=== PATIENT | female | born 1955 | race Caucasian/White ===

== ENCOUNTER 2019-05-22 09:09 | Outpatient (CLI) | payer MEDICARE, MEDICAID, SELFPAY ==
--- NOTE | 2019-05-22 10:09 | MR_ITS ---
WS: [id number] MRI LEFT KNEE HISTORY: PAIN LEFT KNEE JOINT COMPARISON: LEFT knee radiographs 09/27/2016 Anterior cruciate ligament: Increased signal and marked thinning of the ACL. The anterior fibers are still intact. There is a large amount of increased signal in the posterior fibers. Posterior cruciate ligament: Intact. Medial collateral ligament: Negative. Posterior lateral corner structures: Intact. Medial menisci: Posterior horn is small caliber with increased signal. Blunting of the free edge and significant fraying along the articular surfaces and towards the meniscal root. Anterior horn is part ially subluxed. Lateral meniscus: Intact. Normal signal, size and shape. Extensor mechanism: Distal quadriceps tendon and patellar tendons are intact. Fluid and soft tissue: No joint effusion. No Sargent's cyst. Osseous and articular structures: Patellofemoral compartment: Mild narrowing of the lateral patellofemoral compartment with fraying of the cartilage. No marrow edema. Medial compartment: Moderate narrowing medial compartment with near complete loss of cartilage. Small osteophytes extend from the medial femoral condyle and tibial plateau with partial subluxation of th e meniscus. Subchondral cystic changes and edema at the femoral condyle and tibial plateau. Lateral compartment: Mild narrowing of the lateral compartment with small osteophytes. Loss of cartil age without significant marrow edema. MR/MR knee LT wo con* [id number] IMPRESSION: 1. Abnormal ACL. Suspect partially torn ACL involving the posterior fibers. 2. Moderate medial compartment osteoarthritis with loss of cartilage, osteophy tae and subluxed meniscus. 3. Complex tear posterior horn medial meniscus. 4. Mild patellofemoral and lateral compartment osteoarthritis.
== END 2019-05-22 09:10 | disposition home or self-care (01) ==
LOC: RADWPI 09:16
PROVIDERS: PCP Nurse Practitioner Family; Visit Provider Nurse Practitioner Family
DX: M17.12 Unilateral primary osteoarthritis, left knee (principal); S83.232A Complex tear of medial meniscus, current injury, left knee, initial encounter; X58.XXXA Exposure to other specified factors, initial encounter
CPT/HCPCS: 73721

== ENCOUNTER → 2019-05-23 13:50 | Outpatient (BNVA) | payer MEDICARE, MEDICAID, SELFPAY | PROVIDERS: PCP Nurse Practitioner Family; Visit Provider Nurse Practitioner | DX: F41.0 Panic disorder [episodic paroxysmal anxiety] (principal) | CPT/HCPCS: 99213 ==

== ENCOUNTER → 2019-05-28 15:34 | Outpatient (BNVA) | payer MEDICARE, MEDICAID, SELFPAY | PROVIDERS: PCP Nurse Practitioner Family; Referring Provider Orthopaedic Surgery; Visit Provider Orthopaedic Surgery | DX: M17.12 Unilateral primary osteoarthritis, left knee (principal); M25.562 Pain in left knee | CPT/HCPCS: 73560; 73565 ==

== ENCOUNTER → 2019-08-15 08:34 | Outpatient (BNVA) | payer MEDICARE, MEDICAID, SELFPAY | PROVIDERS: PCP Nurse Practitioner Family; Visit Provider Nurse Practitioner | DX: F41.0 Panic disorder [episodic paroxysmal anxiety] (principal) | CPT/HCPCS: 99213 ==

== ENCOUNTER → 2019-11-28 07:39 | Outpatient (BNVA) | payer MEDICARE, MEDICAID, SELFPAY | PROVIDERS: PCP Nurse Practitioner Family; Visit Provider Nurse Practitioner | DX: F41.0 Panic disorder [episodic paroxysmal anxiety] (principal) | CPT/HCPCS: 99213 ==

== ENCOUNTER 2020-01-30 10:28 | Outpatient (CLI) | payer MEDICARE, MEDICAID, SELFPAY ==
--- NOTE | 2020-01-30 10:35 | XRR_ITS ---
PROCEDURE INFORMATION: Exam: XR Chest, 2 Views Exam date and time: 01/30/2020 10:50 AM Age: 64 years old Clinical indication: Cough and shortness of breath; Smoker's cough; Additional info: Tobacco dependence, coughing TECHNIQUE: Imaging protocol: XR of the chest Views: 2 views. COMPARISON: CR Chest 1 [place] [id number] 06/02/2016 7:16 AM FINDINGS: Lungs: There is a large lobulated mass in the right hilum and suprahilar region that extends into the right upper lobe. It it lies along the right side of the mediastinum and obscures the margins. It may be invading the superior mediastinum. There is narrowing of the distal trachea at the level of the arch that is probably due to mediastinal of invasion. This is consistent with a primary lung malignancy. The left lung is grossly clear. Pleural space: The right costophrenic angle is blunted due to a small effusion. Heart: The heart is not enlarged.. Bones/joints: Unremarkable. XR/XR chest 2V* [id number] IMPRESSION: 1. There is a 10 cm right hilar and suprahilar mass extending into the right upper lobe consistent with a primary lung malignancy. 2. This probably invades the mediastinum. There is narrowing of the distal trachea. 3. Small right pleural effusion.
== END 2020-01-30 10:29 | disposition home or self-care (01) ==
LOC: RAD 10:32
PROVIDERS: PCP Nurse Practitioner Family; Visit Provider Nurse Practitioner Family
DX: F17.200 Nicotine dependence, unspecified, uncomplicated (principal); R05 Cough; R91.8 Other nonspecific abnormal finding of lung field; J90 Pleural effusion, not elsewhere classified
CPT/HCPCS: 71046

== ENCOUNTER 2020-02-04 13:59 | Outpatient (CLI) | payer MEDICARE, MEDICAID, SELFPAY ==
--- NOTE | 2020-02-04 14:05 | CT_ITS ---
WS: [id number] CT CHEST TECHNIQUE: Contrast enhanced CT of the chest with coronal and sagittal reformatted images. CLINICAL INFORMATION: HILAR LUNG MASS COMPARISON: None. DLP: 596.[address] scans at [facility] use at least one of these dose optimization techniques: automat ed exposure control; mA and/or kV adjustment per patient size (includes targeted exams where dose is matched to clinical indication); or iterative reconstruction. FINDINGS: Large right hilar and suprahilar mass measuring 11.9 x 6.1 x 7.1 cm. Heterogeneously enhancing mass s lightly narrows the distal main pulmonary artery. Narrowing of the adjacent segmental and subsegmenta l right upper lobe pulmonary branches. Associated encasement of the right mainstem bronchus with narr owing. Associated invasion into the mediastinum and adjacent mediastinal fat. Mild narrowing of the d istal trachea. Right hilar mass extends anteriorly and abuts the anterior mediastinum. Additional andres pected disease in the anterior right upper lobe extending along the fissure anteriorly. Interstitial infiltrates throughout the right lung suspicious for lymphangitic metastasis. This is worse in the in ferior segment right upper lobe extending along the fissure. Narrowing with encasement of the right superior vena cava which appears partially thrombosed. Tumor t hrombus in the mid segment of the SVC. This results in subtotal occlusion. Tumor thrombus measures ap proximately 4.1 cm in craniocaudal dimension.Left axillary lymphadenopathy measuring up to 12 mm Conglomerate right hilar lymphadenopathy. No left hilar lymphadenopathy. 2 noncalcified nodules one i n the left upper lobe along the left lower lobe measuring 3 mm. . Diffuse fatty infiltration liver. Cholecystectomy clips. Normal GE junction. Adrenal glands are teofilo l. Partially visualized calcified left renal cyst. Mild thoracic kyphosis. CT/CT chest w con* [id number] IMPRESSION: 1. Large right hilar and suprahilar mass consistent with neoplasm measuring 11 .9 x 6.1 x 7.1 cm 2. Interstitial infiltrates right upper lobe suspicious for lymphangitic metas tasis. 3. Narrowing with encasement of the right superior vena cava with extensive tu mor thrombus in the mid SVC. 4. 2 noncalcified nodules in the left lung described above measuring 3 mm 5. Enlarged enhancing left axillary lymph nodes suspicious for metastatic dise ase.
[2020-02-04] MEDS: iohexol 300 mg/mL 100 mL Btl IV (14:20)
== END 2020-02-04 14:00 | disposition home or self-care (01) ==
LOC: RADWPI 14:04
PROVIDERS: PCP Nurse Practitioner Family; Visit Provider Nurse Practitioner Family
DX: R91.8 Other nonspecific abnormal finding of lung field (principal); R59.0 Localized enlarged lymph nodes
CPT/HCPCS: 71260; Q9967

== ENCOUNTER 2020-02-05 10:00 | Outpatient (CLI) | payer MEDICARE, MEDICAID, SELFPAY | END 2020-02-05 10:01 | disposition home or self-care (01) | LOC: LAB 12-04 11:39 | PROVIDERS: PCP Internal Medicine; Visit Provider Internal Medicine Critical Care Medicine | DX: R91.8 Other nonspecific abnormal finding of lung field; Z20.828 Contact with and (suspected) exposure to other viral communicable diseases | CPT/HCPCS: 87635 ==

== ENCOUNTER 2020-02-08 09:23 | Day surgery (SDC) | payer MEDICARE, MEDICAID, SELFPAY ==
[2020-02-07 11:18] VITALS: BMI 22.3
[2020-02-08] VITALS (7 sets, daily range): BP systolic 92–120; BP diastolic 58–81; PULSE 99–105; RESP 16–23; TEMP 36.6–37.1; O2SAT 93–100
[2020-02-08] MEDS: sodium chloride 0.9% 1,000 ML 30 ML IV (09:47)
--- NOTE | 2020-02-08 10:32 | W.PM.OPSUD ---
Surgery/Procedure H&P Update DATE OF PROCEDURE: February 08, 2020 DATE H&P PERFORMED: 02/05/20 H&P UPDATE INFORMATION: I have reviewed H&P completed within last 30 days, I have examined patient prior to procedure and No changes to prior documentation PREOP DIAGNOSIS: Lung cancer PRIMARY INDICATION FOR PROCEDURE: Suspected lung cancer PLANNED PROCEDURE: Bronchoscopy with inspection of the airway, possible endobronchial biopsy, bronchoalveolar lavage, Cytobrush, endobronchial survey transbronchial aspiration of lymph nodes, control of bleeding Operation Date: 02/08/20 11:00 Proposed Procedures p Ebus 67193 R91.8(Not Applicable) - Kerri Meadows MD s Bronchoscopy 92509 R91.8(Not Applicable) - Kerri Meadows MD
--- NOTE | 2020-02-08 10:35 | ANES.PREANE2 ---
Pre-Anesthetic Assessment Pre-Anesthetic Assessment: Height/Weight: Height 1.65 m Weight 60.781 kg Temp Pulse Resp BP Pulse Ox 98 F 99 16 110/81 97 02/08/20 09:38 02/08/20 09:38 02/08/20 09:38 02/08/20 09:38 02/08/20 09:38 Preop Diagnosis: Lung cancer Proposed Procedure: Operation Date: 02/08/20 11:00 Proposed Procedures p Ebus 84001 R91.8(Not Applicable) - Kerri Meadows MD s Bronchoscopy 88561 R91.8(Not Applicable) - Kerri Meadows MD Familial anesthetic complications: None Was Beta Jaki taken within 24 hours: N/A Last intake: Intake Last Liquid Date 02/08/20 Last Liquid Time 06:30 Last Solid Date 02/07/20 Last Solid Time 21:00 Social: Social History: Tobacco and No alcohol Exam: Pre-Anes Outpt Exam: alert, oriented x 3, clear to auscultation bilaterally and regular rate & rhythm Airway: Cervical ROM: WNL MP: 3 Dentition: False Pulmonary: Pulmonary: SOB Comments: lung mass CV/HEM: CV/HEM: HTN Anesthetic Plan: ASA status: 3 Anesthesia: General Risk of > 500 ml blood loss (7ml/kg in children): No Meds/Allergies Current Medications: Current Medications Generic Name Dose Route Start Last Admin Trade Name Freq PRN Reason Stop Dose Admin Sodium Chloride 1,000 mls @ 30 ml s/hr 02/08/20 08:00 02/08/20 09:47 Sodium Chloride 0.9% IV 02/09/20 07:59 30 mls/hr .Q24H ANA MARÍA Administration PFSH Anesthesia PFSH: Medical History Panic disorder [episodic paroxysmal anxiety] Social History Smoking and tobacco status: current every day smoker cigarettes Packs smoked per day: 1 Years cigarettes smoked: 44 Quit status (tobacco): considering quitting Smoking risk assessment/counseling performed?: Yes Tobacco counseling given: counseling >3 minutes Alcohol intake: current Alcohol intake frequency: few times a month Alcohol type: beer Lives independently: Yes Household members: none Marital status: Current occupational status: retired History of recent travel: No Current gender identity: Female Data Anesthesia Cardiac Studies: No Data to Display
[2020-02-08] MEDS: lidocaine 1% INJ 50 mL 20 ML XX (10:45)
[2020-02-08] MEDS: EPINEPHrine 1 mg/mL INJ XX (11:10)
--- NOTE | 2020-02-08 11:36 | PM.OP ---
Operative Report Date of procedure: February 08, 2020 Pre-op Diagnosis: Lung cancer Post-op diagnosis: same Brief History: 64-year-old lady with suspected lung cancer coming in for bronchoscopic evaluation. Procedure: Name of the procedure: Bronchoscopy with inspection of the airway, endobronchial biopsies, endobronchial sound guided transbronchial needle aspiration of lymph nodes and control of bleeding Indication: Lucero lung cancer Anesthesia: General anesthesia. Local anesthesia: The talisha in the right and left mainstem bronchi were anesthetized with 1% lidocaine, 3 mL. Description of the procedure: The procedure was explained to the patient and the consent was obtained. The patient was brought to the OR. The plan was made to proceed with a bronchoscopy with monitored anesthesia care however the patient became hypoxic and was eventually intubated. Following induction of general anesthesia, the bronchoscope was advanced through the ET tube. The lower trachea appeared to be erythematous, there was extrinsic compression on the right lower trachea with narrowing. The talisha was sharp but there was narrowing from complete occlusion of the right upper lobe bronchus. The talisha, the right and left mainstem bronchi are anesthetized with 1% lidocaine. In a systematic manner bilateral bronchial tree was then examined. The bronchoscope was advanced into the left mainstem bronchus. There was erythema and mild,mucus. The left upper lobe, lingula and left lower lobe bronchi were examined up to the third subsegmental level and no abnormalities were identified. There is no endobronchial lesion, active bleeding or mucous plug. The bronchoscope was then introduced into the right mainstem bronchus. There was complete occlusion of the right upper lobe bronchus with fungating mass visible. The right middle and lower lobe bronchus also appeared distorted from extrinsic compression. There is no endobronchial lesion in the right middle or lower lobe bronchus. Endobronchial biopsies were obtained from the right upper lobe fungating mass. Multiple samples were obtained after local epinephrine and cold saline instillation. Endobronchial ultrasound was then introduced. Large mass with necrotic center was identified in the perihilar and suprahilar area. Fine-needle aspiration was performed from the 4R station lymph node area. Samples: 1. Endobronchial biopsies are sent for histopathology 2. The fine-needle aspiration was sent for histopathology and cytology. Complications: There was no immediate complications. There was no active bleeding.
--- NOTE | 2020-02-08 11:57 | PC.NURSE ---
EBUS BALLOON INTACT UPON REMOVAL.
--- NOTE | 2020-02-08 12:08 | SUR.PHASEI ---
1205 PT AWAKE ALERT TALKATIVE REQUESTS COFFEE TO SIP ON , PT HAS OCC NON PRODUCTIVE COUGH, VSS PT PT SATS 90% ON RA TRIAL, PLACED ON 2LNC SATS UP TO 94% PT TAKING ICE CHIPS WITHOUT DIFFICULTY.
--- NOTE | 2020-02-08 12:59 | ANE.PACU2 ---
Inpatient post-anesthesia follow up: Airway intact: Yes Vital signs: Temperature 98 F Pulse Rate 102 Respiratory Rate 18 Blood Pressure 98/65 Pulse Oximetry 97 Oxygen Delivery Me thod Room Air Oxygen Flow Rate 2 Fraction of Inspir ed Oxygen 2.0 Hydration adequate: Yes Nausea and vomiting: No Pain level: 1 Mental status: Baseline
== END 2020-02-08 13:10 | disposition home or self-care (01) ==
PROVIDERS: PCP Nurse Practitioner Family; Visit Provider Internal Medicine Critical Care Medicine
PROC: BB4BZZZ Ultrasonography of Pleura (ICD-10-PCS; principal; 2020-02-08 11:00)
PROC: 0BJ08ZZ Inspection of Tracheobronchial Tree, Via Natural or Artificial Opening Endoscopic (ICD-10-PCS; CPT 31622; 2020-02-08 11:00)
DX: C34.90 Malignant neoplasm of unspecified part of unspecified bronchus or lung (principal); I10 Essential (primary) hypertension; F17.210 Nicotine dependence, cigarettes, uncomplicated
CPT/HCPCS: 12345; 31627; 31628; 80500; 88305; 88307; 88309; J0171; J0330; J2250; J2370; J2704; J3010; J3490; J7030

== ENCOUNTER → 2020-02-18 07:51 | Outpatient (BNVA) | payer MEDICARE, MEDICAID, SELFPAY | PROVIDERS: PCP Nurse Practitioner Family; Visit Provider Nurse Practitioner | DX: F41.0 Panic disorder [episodic paroxysmal anxiety] (principal) | CPT/HCPCS: 99214 ==

== ENCOUNTER 2020-02-20 08:49 | Outpatient (CLI) | payer MEDICARE, MEDICAID, SELFPAY ==
[2020-02-20] MEDS: pneumococcal (23 valent) SDV 0.5 mL IM (11:22)
[2020-02-20 12:00] LABS: Basophils # 0.1 10^3/uL (0.0-0.1); Basophils % 0.6 %; Eosinophils # 0.2 10^3/uL (0.0-0.8); Eosinophils % 1.7 %; Hematocrit 32.1 % (37.0-47.0); Hemoglobin 10.1 g/dL (11.5-15.3); Lymphocytes # 1.4 10^3/uL (0.8-4.8); Lymphocytes % 11.4 %; Mean Corpuscular HGB Conc 31.5 g/dL (30.0-36.0); Mean Corpuscular Hemoglobin 25.4 pg (28.0-34.0); Mean Corpuscular Volume 80.7 fL (81-99); Mean Platelet Volume 8.2 fL (7.4-10.4); Monocytes # 1.2 10^3/uL (0.2-0.9); Monocytes % 10.4 %; Neutrophils # 8.96 10^3/uL (1.8-7.7); Neutrophils % 75.3 %; Nucleated Red Blood Cells % 0 %; Platelet Count 581 10^3/cmm (130-400); Red Blood Count 3.98 10^6/uL (4.1-5.3); Red Cell Distribution Width 14.6 % (12.1-15.1); White Blood Count 11.9 10^3/uL (4.0-10.0)
--- NOTE | 2020-02-20 12:00 | ONC CON_ITS ---
Dr. Almeida New Patient Note Patient: Iram Denis Unit #: [id number]: [id number] Dicatated By: Jeff Almeida M.D.Date of Visit: Feb 20, 2020 Onc MED New Patient/Consult Referring Physician: Dr. LEANNA MARSH M.D. Chief Complaint: Lung cancer. History of Present Illness: This is a 65-year-old woman with newly diagnosed adenocarcinoma involving the upper lobe of the right lung, by clinical evaluation stage IIIB (T4, N2, M0). She has had gradually worsening shortness of breath over at least the past year. More recently, she also had worsening cough, generally productive of yellow sputum, though about a month ago she did have some hemoptysis. Her chest x-ray on 01/30/2020 showed a 10 cm right hilar/suprahilar mass extending into the right upper lobe consistent with a primary lung malignancy. This was noted to probably invade the mediastinum. Chest CT on 02/04/2020 showed large right hilar and suprahilar mass measuring 11.9 x 6.1 x 7.1 cm. There was slight narrowing of the distal main pulmonary artery and there was narrowing of the adjacent segmental and subsegmental right upper lobe pulmonary branches. There was encasement of the right mainstem bronchus with associated narrowing. There was invasion into the mediastinum and adjacent mediastinal fat, and there was mild narrowing of the distal trachea. There was narrowing with encasement of the right superior vena cava which appeared partially thrombosed. There was evidence of tumor thrombus in the mid segment of the SVC measuring approximately 4.1 cm. There was conglomerate right hilar lymphadenopathy. Interstitial infiltrates throughout the right lung appeared suspicious for lymphangitic metastases. On 02/08/2020 she underwent bronchoscopy/EBUS with endobronchial biopsy from the right upper lobe and with FNA biopsy of station 4R lymph node. Pathology on the station 4R lymph node biopsy was consistent with metastatic adenocarcinoma, favoring lung primary. The tumor cells were TTF-1 positive. She is seen now for further management. Her energy is very low and she has very limited activity. ECOG score is 2. Her appetite is poor. Her weight is down about 10 pounds. She has not had fever. She recently has had some night sweating. She is short of breath with activity. She has cough productive of yellow sputum. She has not recently had hemoptysis. She does not complain of chest pain. She his having nausea with vomiting on a daily basis. She has some constipation. She reports having frequent urination. She has pain in her knees, but no other joint or bone pain. She does not complain of headache. She has occasional orthostatic lightheadedness. She has no focal neurologic symptoms. PET/CT on 02/09/2020 showed FDG avid right upper lobe mass measuring 12.1 x 5.6 cm. There was mild activity and a 1.5 cm subcarinal lymph node, consistent with metastatic disease. Postobstructive atelectasis with right upper and middle lobe interstitial thickening was suspicious for carcinomatosis. Past Medical History: Her medical history includes anxiety/depression, hypertension, and migraine headaches. Past Surgical History: She underwent bronchoscopy with EBUS, right upper lobe endobronchial biopsy, and FNA biopsy of station 4R lymph node on 02/08/2020. Her other surgical/procedural includes cholecystectomy, and cone biopsy for cervical cancer. Medications: KlonoPIN 1 Tablet (of 0.5 mg) Oral daily, Lisinopril-hydroCHLOROthiazide 1 Tablet (of 20-12.5 mg) Oral daily, Zoloft 1 Tablet (of 50 mg) Oral daily Allergies: No Known Allergies. Social History: Ms. Denis is . She has a history of smoking 1 pack of cigarettes daily for 40 years. She has now cut down to 1/2 pack/day. She has occasional alcohol use. Family History: Ms. Denis's father is : heart disease, and hypertension, and myocardial infarction, and stroke. Father of stroke. Mother is also , cause unknown to the patient. A brother and a sister of lung cancer. Another sister had kidney failure. Review Of Symptoms: Constitutional - She has no energy and her activity is very limited. Appetite is poor. Her weight is down about 10 lbs. No fever. She is having night sweats. ECOG score is 2, Eyes - No change in vision, ENMT - No sinus congestion/drainage. No mouth sores. She has some soreness on the right side of the throat. No difficulty swallowing, Hematologic/Lymphatic - She bruises and bleeds easily, Respiratory - She has shortness of breath. She has cough productive of yellow sputum. She had a little hemoptysis about a month ago, that resolved, Cardiovascular - No angina pain. No palpitations, Gastrointestinal - She has had nausea with vomiting on a daily basis. No heartburn or acid reflux. She has constipation. No blood in the stool or black stools, Genitourinary (F) - No dysuria or hematuria. She has urinary frequency. No urgency or incontinence, Musculoskeletal - She has pain in her knees, but no other joint or bone pain, Integumentary - No skin rash, Neurologic - No headache. She has occasional orthostatic lightheadedness. No numbness or tingling. No other focal neurologic symptoms, Psychiatric - She has anxiety and depression. She does not sleep well. Vital Signs: Performed on Feb 20, 2020 10:30: 0, 21.47, 1.68 sq.m, 66.00 in, 96 %, 103 /min (HIGH), 18 /min, 122/74 mm(hg), 98.3 F (LOW), and 133.0 lbs (HIGH). Physical Examination: Constitutional - She appears generally weak, Eyes - Sclerae nonicteric. Conjunctivae clear, ENMT - No lesions noted in the oral cavity, Neck - There is generalized firm swelling in the neck. There is no mass or thyromegaly noted, Hematologic/Lymphatic - No cervical, clavicular, or axillary adenopathy, Respiratory - Lungs are clear with diminished air movement bilaterally, Cardiovascular - Heart rhythm is regular. There is a mild tachycardia. There is no murmur, gallop, or rub noted, Abdomen - Soft and non-tender. Liver and spleen are not enlarged. There is no abdominal mass or ascites noted and there is no inguinal adenopathy, Back/Spine - No spine or CVA tenderness noted, Extremities - No edema. Pedal pulses are palpable bilaterally, Integumentary - No rashes. No suspicious skin lesions noted, Neurologic - No focal neurologic deficits noted. Impression: 1. Patient with adenocarcinoma involving the upper lobe of the right lung, by clinical evaluation stage at least IIIB (T4, N2, M0). 2. She underwent bronchoscopy/EBUS with right upper lobe endobronchial biopsy and with FNA biopsy of station 4R lymph node on 02/08/2020. Her other medical illnesses include: 3. Hypertension. 4. COPD. 5. She has history of migraine headaches. 6. She has remote history of cervical cancer, treated with cone biopsy. 7. Anxiety/depression. 8. Nicotine dependence. Plan: The CT PET/CT findings were reviewed with the patient and her daughters, and I reviewed the CT images with them. Pathology results were also reviewed, and we discussed the clinic complications. She has non-small cell carcinoma involving the upper lobe of the right lung. Her disease is locally advanced. There is associated tumor thrombus in the SVC, and she she has beginning to show clinical evidence of SVC obstruction. She has recommended to undergo radiation currently with weekly carboplatin/paclitaxel chemotherapy. I did review anticipated side effects. She will need baseline laboratory studies and she will need a brain MRI to complete staging. She will be scheduled for radiation oncology consultation this week, and her treatment will be started soon as radiation planning is completed. In the meantime, she will be started on nicotine patches for smoking cessation she also will be given instructions for a bowel regimen. Signed By: Jeff Almeida M.D. <<Signature on File>>
[2020-02-20 14:30] LABS: Alanine Aminotransferase 30 U/L (0-33); Albumin Level 3.8 g/dL (3.5-5.2); Alkaline Phosphatase 221 IU/L (35-105); Anion Gap 14.8 (5-19); Aspartate Amino Transferase 26 U/L (0-32); Blood Urea Nitrogen 15 mg/dL (8-23); Calcium 9.9 mg/dL (8.5-10.5); Carbon Dioxide 26 mmol/L (22-29); Chloride 84 mmol/L (98-107); Glomerular Filtration Rate 83.7 mL/min (90-130); Glucose 104 mg/dL (65-115); Osmolality Calculated 251 mOsm/kg (285-295); Potassium 4.8 mmol/L (3.5-5.1); Sodium 120 mmol/L (136-145); Total Bilirubin 0.3 mg/dL (0.15-1.2); Total Protein 7.8 g/dL (6.6-8.7)
== END 2020-02-20 08:50 | disposition home or self-care (01) ==
LOC: ONCMED 08:54
PROVIDERS: PCP Internal Medicine; Referring Provider Internal Medicine Critical Care Medicine; Visit Provider Internal Medicine Medical Oncology
DX: C34.11 Malignant neoplasm of upper lobe, right bronchus or lung (principal); C77.1 Secondary and unspecified malignant neoplasm of intrathoracic lymph nodes; Z23 Encounter for immunization; F17.210 Nicotine dependence, cigarettes, uncomplicated; I10 Essential (primary) hypertension; J44.9 Chronic obstructive pulmonary disease, unspecified; F41.8 Other specified anxiety disorders; Z86.69 Personal history of other diseases of the nervous system and sense organs; Z85.41 Personal history of malignant neoplasm of cervix uteri
CPT/HCPCS: 36415; 80053; 85025; 90471; 90686; 90732; 99205

== ENCOUNTER 2020-02-27 07:57 | Outpatient (CLI) | payer MEDICARE, MEDICAID, SELFPAY ==
--- NOTE | 2020-02-27 08:14 | MR_ITS ---
WS: [id number] MRI HEAD WITH CONTRAST TECHNIQUE: Sagittal T1, T2 axial, T2 axial FLAIR, axial susceptibility weighted imaging, axial diffus ion weighted images, and coronal T2 images were obtained. Pre and post-T1 axial and post T1 coronal i mages. ADC and FSPGR images. Some images degraded by patient motion. CLINICAL INFORMATION: LUNG CANCER COMPARISON: None. FINDINGS: No evidence of restricted diffusion to suggest acute ischemia. Ventricular system and basal cisterns are patent. Moderate small vessel changes. Moderate parenchymal volume loss. Small vessel changes in the manny. No hydrocephalus. Normal posterior fossa. Normal vascular flow voids at the skull base. No extra-axial fluid collection s. Mild mucosal thickening in the paranasal sinuses. Mastoid air cells are well aerated. No hemosider in on the susceptibility weighted images. Normal optic chiasm and pituitary infundibulum. Moderate sy mmetric atrophy involving the temporal lobes and hippocampal formations. No enhancing intraparenchymal metastatic lesions. Post gadolinium images degraded by motion.Enhancing 10 mm bony lesion involving the right frontal vertex is nonspecific but likely benign. This likely r epresents atypical hemangioma or venous goode. This can be followed up with head CT. MR/MR head wo/w con [id number] IMPRESSION: 1. No restricted diffusion to suggest acute ischemia. 2. Moderate small vessel changes with moderate parenchymal volume loss. 3. No evidence of enhancing intracranial metastatic disease. Some images degra ded by patient motion. 4. Enhancing bony lesion involving the right frontal vertex likely represents atypical hemangioma or venous goode.
== END 2020-02-27 07:58 | disposition home or self-care (01) ==
LOC: RADSHAW 08:02
PROVIDERS: PCP Internal Medicine; Visit Provider Internal Medicine Medical Oncology
DX: C34.11 Malignant neoplasm of upper lobe, right bronchus or lung (principal)
CPT/HCPCS: 70553; A9579

== ENCOUNTER → 2020-02-29 09:19 | Outpatient (BNVA) | payer MEDICARE, MEDICAID, SELFPAY | PROVIDERS: PCP Internal Medicine; Visit Provider Surgery | DX: Z11.59 Encounter for screening for other viral diseases (principal); C34.90 Malignant neoplasm of unspecified part of unspecified bronchus or lung | CPT/HCPCS: 87635 ==

== ENCOUNTER 2020-03-04 05:50 | Outpatient (RCR) | payer MEDICARE, MEDICAID, SELFPAY ==
--- NOTE | 2020-02-25 14:10 | N.ONRAD NP_ITS ---
Radiation Oncology Consult Patient: Iram Denis MR#: [id number] : 1955> Attending Physician: Dr. Alf Yanes Date of Service: 02/25/2020 Iram Denis was seen in consultation this afternoon for evaluation regarding possible thoracic radiotherapy for the management of her non-small cell lung cancer. She presented to her family practitioner with complaints of a cough and shortness of breath. A chest radiograph performed on January 30, 2020 identified a large mass in the right hilum extending into the right upper lobe. A follow-up thoracic CT scan completed on 2019 revealed an 11.9 cm x 6.1 cm x 7.1 cm right hilar mass encasing the right main stem bronchus and invading the mediastinum narrowing of the right superior vena cava. A 4.1 cm tumor thrombus was present. A bronchoscopy with EBUS performed on February 08, 2020 demonstrated complete occlusion of the right upper lobe bronchus with a fungating visible mass. Biopsies diagnosed a TTF???1 and Napsin positive tumor consistent with an adenocarcinoma. A PET CT ordered on February 09, 2020 confirmed the right hilar mass with a maximum SUV of 17.2, and mildly hypermetabolic 1.5 cm sub-carinal lymph node consistent with metastatic disease. I have been asked to evaluate the patient for possible thoracic radiotherapy. The patient's past medical history is significant anxiety, cervical cancer, depression, hypertension, and migraine headaches. Her previous surgical interventions include bronchoscopy, cholecystectomy, and conization of the cervix. I have reviewed the patient's medication profile which is available in the electronic medical record. She denied drug allergies. The patient's family history was remarkable for lung cancer (brother and sister). The patient was accompanied to this consultation by daughter. She reported a tobacco habit of 1 pack per day for 45 years and occasional alcohol intake (beer weekly). On review of systems, she did not report any constitutional complaints including fevers of unknown origin or unintentional weight loss. He described sided dull pain but no other head neck complaints including diplopia, tinnitus, epistaxis, or dysphagia. She denied any cardiopulmonary symptoms such as angina or palpitations, but she did report a persistent, productive cough and dyspnea. On gastrointestinal review, she disavowed dyspepsia but attested to nausea with vomiting and chronic constipation. There were no genitourinary complaints such as dysuria or hematuria. She did not report any musculoskeletal complaints including bone pain or muscle weakness. There were no neurological symptoms such as headaches, paresthesias, or seizures. On physical examination, the patient has an ECOG performance status of 2. She was 5 ft 6 in tall and weighed 134 lbs. The temperature was 99.3???F. The blood pressure was 108/67 mmHg. The pulse was 109 bpm and the respiratory rate of was 20. Oxygen saturation was 96% with ambient air. The head was normocephalic and atraumatic. Ophthalmoscopy identified bilateral red reflexes with poor visualization of the fundi. Otoscopy cerumen within the AD. The oral cavity had moist mucous membranes and no oropharyngeal exudate was present. Maxillary dentures noted. There was no cervical adenopathy or thyromegaly. Mildly enlarged right cervical veins without plethora. Normal fremitus was noted with resonance to percussion elicited. Bronchial breath sounds were auscultated in the posterior lung griffiths with significant decrement noted within the right lung griffiths. Cardiac sounds were tachycardic but regular in rate and rhythm. No auscultated gallops or murmurs present. No JVD noted. The abdomen had active bowel sounds. Right upper quadrant tenderness to palpation. No evidence of organomegaly. No muscle weakness upon testing. No tenderness to deep palpation along the axial skeleton. Cranial nerves II through XII were intact. No sensory deficits. Normal reflexes noted. Gait was normal. In summary, the patient presented to her family practitioner with complaints of a cough. A chest radiograph performed on January 30, 2020 identified a large mass in the right hilum extending into the right upper lobe. A follow-up thoracic CT scan completed on 2019 revealed an 11.9 cm x 6.1 cm x 7.1 cm right hilar mass encasing the right main stem bronchus and invading the mediastinum narrowing of the right superior vena cava. A 4.1 cm tumor thrombus was present. A bronchoscopy with EBUS performed on February 08, 2020 demonstrated complete occlusion of the right upper lobe bronchus with a fungating visible mass. Biopsies diagnosed a TTF???1 and Napsin positive tumor consistent with an adenocarcinoma. A PET CT ordered on February 09, 2020 confirmed the right hilar mass with a maximum SUV of 17.2, and mildly hypermetabolic 1.5 cm sub-carinal lymph node consistent with metastatic disease. I have been asked to evaluate the patient for possible thoracic radiotherapy. I discussed with the patient her AJCC stage IIIB (T4N2) adenocarcinoma of the lung and the National Comprehensive Cancer Network guidelines for concurrent chemoradiotherapy. I reviewed the classic study RTOG 9410 comparing sequential versus concurrent chemoradiotherapy I anticipate a 6 week course of radiotherapy that will be initiated following CT radiotherapy planning. An MR of the brain is pending. Thoracic radiotherapy toxicities were reviewed. The patient has verbalized understanding would like proceed as recommended. Dr. Alf Yanes 02/25/2020 2:09:20 PM
--- NOTE | 2020-02-27 13:14 | N.ONRAD NP_ITS ---
Physician Clinical Treatment Planning Note Iram Denis has agreed to proceed with Radiation Therapy. The following information represents the intent for the treatment course. The final prescription reflecting the treatment parameters i.e. fractionation, energy, beam arrangement and total dose will be provided in the Prescribe Treat area of [facility] upon completion and my evaluation of the requested dosimetry planning. Clinical Evaluation: Diagnosis: C34.11 - malignant neoplasm of upper lobe, right bronchus or lung, Diagnosed 02/20/2020 (active). Lung cancer. This is a 65-year-old woman with newly diagnosed adenocarcinoma involving the upper lobe of the right lung, by clinical evaluation stage IIIB (T4, N2, M0). She has had gradually worsening shortness of breath over at least the past year. More recently, she also had worsening cough, generally productive of yellow sputum, though about a month ago she did have some hemoptysis. Her chest x-ray on 01/30/2020 showed a 10 cm right hilar/suprahilar mass extending into the right upper lobe consistent with a primary lung malignancy. This was noted to probably invade the mediastinum. Chest CT on 02/04/2020 showed large right hilar and suprahilar mass measuring 11.9 x 6.1 x 7.1 cm. There was slight narrowing of the distal main pulmonary artery and there was narrowing of the adjacent segmental and subsegmental right upper lobe pulmonary branches. There was encasement of the right mainstem bronchus with associated narrowing. There was invasion into the mediastinum and adjacent mediastinal fat, and there was mild narrowing of the distal trachea. There was narrowing with encasement of the right superior vena cava which appeared partially thrombosed. There was evidence of tumor thrombus in the mid segment of the SVC measuring approximately 4.1 cm. There was conglomerate right hilar lymphadenopathy. Interstitial infiltrates throughout the right lung appeared suspicious for lymphangitic metastases. On 02/08/2020 she underwent bronchoscopy/EBUS with endobronchial biopsy from the right upper lobe and with FNA biopsy of station 4R lymph node. Pathology on the station 4R lymph node biopsy was consistent with metastatic adenocarcinoma, favoring lung primary. The tumor cells were TTF-1 positive. She is seen now for further management. Her energy is very low and she has very limited activity. ECOG score is 2. Her appetite is poor. Her weight is down about 10 pounds. She has not had fever. She recently has had some night sweating. She is short of breath with activity. She has cough productive of yellow sputum. She has not recently had hemoptysis. She does not complain of chest pain. She his having nausea with vomiting on a daily basis. She has some constipation. She reports having frequent urination. She has pain in her knees, but no other joint or bone pain. She does not complain of headache. She has occasional orthostatic lightheadedness. She has no focal neurologic symptoms. PET/CT on 02/09/2020 showed FDG avid right upper lobe mass measuring 12.1 x 5.6 cm. There was mild activity and a 1.5 cm subcarinal lymph node, consistent with metastatic disease. Postobstructive atelectasis with right upper and middle lobe interstitial thickening was suspicious for carcinomatosis. ECOG Score: 2 - Ambulatory/capable of all self-care, unable to perform any work activities. Up and about more than 50% of waking hours. (ECOG) Treatment Site: Lung Treatment Intent: Previous Treatment: Therapeutic Modalities: Anticipated start date: Requested Technique: Critical Structures: Heart, Lungs, & Spinal Cord Physician Orders Simulation(s) will be performed to accomplish a reproducible treatment position, to determine optimal treatment portals/beam arrangements, to design beam modifying devices, and/or immobilization devices prior to the commencement of radiation therapy. Type: CT Simulation Clinical Simulation: Imaging: CT Guidance 4D CT Scan Area: Thorax Scan Direction: Slice Thickness: Contrast: Type: In case of contrast reaction, give epinephrine I.V. push 0.5 ml repeat x1 needed. If creatinine clearance is less than 58 GFR, use Visipaque 320 IV contrast and offer post contrast hydration. Re-evaluation scan: Special Instructions: Full Bladder Empty bladder Empty rectum Breath hold Bolus Other Instructions: Immobilization Devices: Aquaplast Mask Bite Block Breast Board: Vac-Tamera Shoulder Retractors Belly Board Encompass board Body Fix Dosimetry Planning: Photon Electron Image Fusion: CT MRI PET Other: Type: Isodose Planning 3D Conformal IMRT Goals / Dose Constraints: 60 Gy Additional Instructions: Beam modification devices as necessary per planning Monitor unit calculation per treatment port Respiratory Motion Management Boost planning: Imaging: Type: Verification Simulation to confirm set up and beam parameters prior to treatment Stereoscopic Guidance: Frequency CBCT: Frequency Weekly Port Films Daily Port Films Daily kV images for set up Other Services: Special Dosimetry: Diode Electron Output Frequency: Continuing Physics: Physics check once per week Special Physics Consultation: Physician request: Other Requests or Instructions: Special Treatment Procedure Special treatment procedure is concurrent chemotherapy Medical Necessity 3D Conformal technique is medically necessary due to: The volume of interest is irregular and in close apposition to normal structures that must be protected. The normal structures to be avoided include: The volume of interest is in such a location that its parameters can only be defined by MRI or CT. The volume of interested is located The final boost volume of interest must be constructed to the exact tumor volume with its irregular configuration. Multiple conformed portals are necessary to cover the volumes of interest with close margins and protect immediately adjacent normal structures. The adjacent normal structures include: Volume of interest bordering a previously irradiated area consisting of IMRT is necessary over other forms of therapy due to: The target volume is in close proximity to critical structures that must be protected. Sparing of normal tissues is necessary, which include Heart, Lungs, & Spinal Cord The volume of interest must be covered with narrow margins to adequately protect immediately adjacent structures. A margin of will be necessary to protect the following structures: An immediately adjacent area has been previously irradiated and abutting portals must be established with high precision. Previous treatment was delivered to consisting of . The target volume is , and critical normal tissues are within or around that area. The normal tissues include: Dose escalation is planned to deliver radiation doses in excess of those commonly utilized for similar tumors with conventional treatment. A dose of will be necessary, which exceeds tolerances to the following surrounding structures Stereotactic delivery is necessary over other forms of therapy due to: Treatment of intracranial tumor(s) in uauk-ru-ybrsa locations require the stereotactic technique. The tumor location(s) include: The tumor(s) have an unusual shape requiring stereotactic delivery. The tumor is located to in close proximity to other vital structures including: An immediately adjacent area has been previously irradiated and reirradiation requires increased precision and accuracy. Previous treatment was delivered to consisting of . Surgery is not an option due to the of the tumor. The tumor is The patient???s medical condition justifies aggressive treatment to the to achieve total clearance or clinically beneficial reduction in the patient???s overall burden of systemic disease. Other forms of radiotherapy, including but not limited to external beam and IMRT, cannot be safely or effectively utilized due to The tumor burden can be completely targeted with acceptable risk to critical normal structures including Effective chemotherapy regimens have been exhausted or are otherwise not feasible including Other forms of focal therapy, including but not limited to radiofrequency ablation and cryotherapy, cannot be as safely or effectively utilized due to The patient has experienced recurrence after conventional radiation modalities including
--- NOTE | 2020-03-03 | CT_ITS ---
Radiation Therapy Planning CT images; total exam DLP: 510.52 mGy-cm MTDD
== END 2020-03-04 09:00 | disposition home or self-care (01) ==
LOC: ONCMED 05:50
PROVIDERS: PCP Internal Medicine; Visit Provider Radiology Radiation Oncology
DX: C34.11 Malignant neoplasm of upper lobe, right bronchus or lung (principal); C77.1 Secondary and unspecified malignant neoplasm of intrathoracic lymph nodes; F17.210 Nicotine dependence, cigarettes, uncomplicated; I10 Essential (primary) hypertension; J44.9 Chronic obstructive pulmonary disease, unspecified; F41.8 Other specified anxiety disorders; F32.9 Major depressive disorder, single episode, unspecified; Z86.69 Personal history of other diseases of the nervous system and sense organs; Z85.41 Personal history of malignant neoplasm of cervix uteri; Z80.1 Family history of malignant neoplasm of trachea, bronchus and lung
CPT/HCPCS: 77300; 77301; 77334; 77338; 77386; 77470; 99203; Q9967

== ENCOUNTER → 2020-03-04 07:23 | Day surgery (SDC) | payer MEDICARE, MEDICAID, SELFPAY ==
[2020-03-04 07:49] VITALS: BP 113/76; PULSE 105; RESP 18; TEMP 37.2; O2SAT 95
--- NOTE | 2020-03-04 08:27 | PC.NURSE ---
PATIENT HAS DECIDED TO CANCEL HER PROCEDURE TODAY AND PROCEED TO ONCOLOGY FOR A RADIATION TREATMENT. PATIENT WAITED TO TALK WITH PHYSICIAN FOR AWHILE, PHYSICIAN WAS IN A PROCEDURE, BUT DECLINED TO STAY ANY LONGER EVEN AFTER ENCOURAGED BY ANESTHESIA AND NURSE TO STAY.
--- NOTE | 2020-03-04 08:54 | P.ANESASSM_ITS ---
Pre-Anesthetic Assessment Pre-Anesthetic Assessment: Height/Weight: Height 1.68 m Weight 60.328 kg Temp Pulse Resp BP Pulse Ox 98.9 F 105 H 18 113/76 95 03/04/20 07:49 03/04/20 07:49 03/04/20 07:49 03/04/20 07:49 03/04/20 07:49 Preop Diagnosis: Lung cancer Proposed Procedure: Operation Date: 03/04/20 09:05 Proposed Procedures p Portacath Placement 08536 C34.90(Not Applicable) - Ferny Toro MD Familial anesthetic complications: None Last intake: Intake Last Liquid Date 03/03/20 Last Liquid Time 21:00 Last Solid Date 03/03/20 Last Solid Time 21:00 Social: Social History: Tobacco Exam: Pre-Anes Outpt Exam: alert, oriented x 3, clear to auscultation bilaterally and regular rate & rhythm Additional Exam Findings (including area of procedure): patient on Nasal cannula Airway: MP: 3 Dentition: False Pulmonary: Comments: R upper lung cancer w/ extension into anterior mediastinum and presence of airway narrowing right above talisha on CT scan from 1 month ago. Additionally patient has SVC thrombus. As opposed to 1 month ago this patient is now on Nasal cannula receiving oxygen, and has to lay on her side to sleep, she couldn't tolerate laying flat for 2 seconds without sitting up in state of mild panic. A traditional ETT tube is not long enough to go past the airway narrowing noted on CT 2 weeks ago. A ETT of traditional strength may not offer enough support to stent open the airway in the event that it is passed through the obstruction. In such case a ridid ventilating bronchoscope would be required, and we do not have rigid bronchs. Additionally, our CV surgeon is not here this week, so we would not be able to commence emergent cardiac bypass is needed. Anesthetic Plan: ASA status: 4 Other Pertinent Information: After speaking with Dr Coates, Dr. Almeida, and Arsen Denis RN in [employer] it seems best course of action is to send her for radiation therapy as soon as possible. Confirmed wtih Arsen Denis that after a session of radiation today, he would be able to place a midline catheter in her L left arm with no sedation, in a sitting position. A midline catheter's tip terminates in the axilla and can serve as a temporary conduit for chemo to help shrink tumor. Unfortunately, I was unable to get the patient to stay long enough to discuss this course of action with her surgeon. She exited [facility] to go receive her radiation with the intention to come back for midline.When she returns, we will discuss femoral vs midline access again. PFSH Anesthesia PFSH: Medical History Panic disorder [episodic paroxysmal anxiety] Social History Smoking and tobacco status: current every day smoker cigarettes Packs smoked per day: 1 Years cigarettes smoked: 44 Quit status (tobacco): considering quitting Smoking risk assessment/counseling performed?: Yes Tobacco counseling given: counseling >3 minutes Alcohol intake: current Alcohol intake frequency: few times a month Alcohol type: beer Lives independently: Yes Household members: none Marital status: Current occupational status: retired History of recent travel: No Current gender identity: Female Data Anesthesia Cardiac Studies: No Data to Display
--- NOTE | 2020-03-04 09:42 | W.PM.OPSUD ---
Surgery/Procedure H&P Update DATE OF PROCEDURE: March 04, 2020 DATE H&P PERFORMED: 02/27/20 H&P UPDATE INFORMATION: I have reviewed H&P completed within last 30 days, I have examined patient prior to procedure and Changes to prior documentation as noted here CHANGES TO PREVIOUS DOCUMENTATION: After further discussion with the patient and her daughter I did offer them right groin Port-A-Cath placement and the agreed on that yet there has been concern from anesthesia standpoint of view about patient's airway and laying her flat as she would not tolerate that from their perspective. I did talk further with Dr. Almeida and he agreed to have a temporary device placed just to start her chemotherapy via her left arm and once the patient has her tumor downsized probably should be appropriate for Port-A-Cath placement. At this point we will hold off on any surgical intervention due to anesthesia reservations and will contact the patient as a follow-up appointment. PREOP DIAGNOSIS: Lung cancer PRIMARY INDICATION FOR PROCEDURE: The same PLANNED PROCEDURE: Operation Date: 03/04/20 09:05 Proposed Procedures p Portacath Placement 10499 C34.90(Not Applicable) - Ferny Toro MD
== END ==
PROVIDERS: PCP Internal Medicine; Visit Provider Surgery
DX: C34.11 Malignant neoplasm of upper lobe, right bronchus or lung (principal)
CPT/HCPCS: 12345

== ENCOUNTER → 2020-03-07 09:49 | Outpatient (BNVA) | payer MEDICARE, MEDICAID, SELFPAY | PROVIDERS: PCP Internal Medicine; Visit Provider Family Medicine | DX: Z01.812 Encounter for preprocedural laboratory examination (principal); Z20.828 Contact with and (suspected) exposure to other viral communicable diseases | CPT/HCPCS: 87635 ==

== ENCOUNTER 2020-03-10 05:40 | Outpatient (RCR) | payer MEDICARE, MEDICAID, SELFPAY ==
[2020-03-10 14:34] LABS: Basophils # 0.1 10^3/uL (0.0-0.1); Basophils % 0.8 %; Eosinophils # 0.2 10^3/uL (0.0-0.8); Eosinophils % 1.8 %; Hematocrit 28.1 % (37.0-47.0); Hemoglobin 8.9 g/dL (11.5-15.3); Lymphocytes # 1.1 10^3/uL (0.8-4.8); Mean Corpuscular HGB Conc 31.7 g/dL (30.0-36.0); Mean Corpuscular Hemoglobin 24.7 pg (28.0-34.0); Mean Corpuscular Volume 78.1 fL (81-99); Mean Platelet Volume 8.2 fL (7.4-10.4); Monocytes # 1.3 10^3/uL (0.2-0.9); Monocytes % 11.3 %; Neutrophils # 8.54 10^3/uL (1.8-7.7); Neutrophils % 75.1 %; Nucleated Red Blood Cells % 0 %; Platelet Count 633 10^3/cmm (130-400); Red Cell Distribution Width 15.3 % (12.1-15.1); White Blood Count 11.4 10^3/uL (4.0-10.0)
[2020-03-10 14:59] LABS: Alanine Aminotransferase 43 U/L (0-33); Albumin Level 3.6 g/dL (3.5-5.2); Alkaline Phosphatase 310 IU/L (35-105); Anion Gap 14.4 (5-19); Aspartate Amino Transferase 21 U/L (0-32); Blood Urea Nitrogen 17 mg/dL (8-23); Calcium 9.5 mg/dL (8.5-10.5); Carbon Dioxide 27 mmol/L (22-29); Chloride 87 mmol/L (98-107); Globulin 3.9 g/dL (1.3-4.6); Glomerular Filtration Rate 83.7 mL/min (90-130); Glucose 115 mg/dL (65-115); Osmolality Calculated 260 mOsm/kg (285-295); Potassium 4.4 mmol/L (3.5-5.1); Sodium 124 mmol/L (136-145); Total Bilirubin 0.2 mg/dL (0.15-1.2); Total Protein 7.5 g/dL (6.6-8.7)
[2020-03-11 16:57] LABS: Iron 20 ug/dL (37-145); Percent Saturation 9.4 % (20-50); Total Iron Binding Capacity 211 mcg/dl; Unsaturated Iron Binding 191 ug/dL (112-347)
== END 2020-03-10 23:59 | disposition home or self-care (01) ==
LOC: ONCMED 05:40
PROVIDERS: Absent Provider Radiology Radiation Oncology; PCP Internal Medicine; Visit Provider Internal Medicine Medical Oncology
DX: Z51.0 Encounter for antineoplastic radiation therapy (principal); C34.11 Malignant neoplasm of upper lobe, right bronchus or lung; D50.9 Iron deficiency anemia, unspecified
CPT/HCPCS: 36415; 77014; 77386; 80053; 83540; 83550; 85025

== ENCOUNTER 2020-03-12 05:25 | Outpatient (RCR) | payer MEDICARE, MEDICAID, SELFPAY ==
--- NOTE | 2020-03-11 14:32 | ONCRAD TMN_ITS ---
Radiation Oncology Weekly Treatment Management Patient: Iram Denis MR#: [id number] : 1955 Attending Physician: Alf Yanes M.D. Date of Service: 03/11/2020 The patient is a 65-year-old white female diagnosed with a clinical stage IIIB (T4N2) adenocarcinoma of the right hilum and upper lobe of the lung. The patient has received 6 Gy of a prescribed 60 Springer with intensity modulated radiotherapy plan utilizing a step and shoot treatment technique. Upon review of systems, she continues to have dyspnea. The patient also reported increased urinary frequency but denied dysuria. On physical examination, the patient weighed 132 lbs. Her temperature was 99 ???F with a blood pressure of 150/75 mmHg. The pulse was 112 bpm and her respiratory rate was 20. Oxygen saturation with 3 L nasal cannula was 98%. There was no erythema within the treatment griffiths. Auscultation of the posterior lung griffiths identified significantly decreased breath sounds with increased fremitus in the right posterior lung field. Continue thoracic radiotherapy as prescribed. I will obtain an urinalysis for her urinary symptom complaints. Signed by: Dr. Alf Yanes 03/11/2020 2:30:51 PM
[2020-03-11 15:32] LABS: Add Urine Microscopic? NO
[2020-03-11 19:11] LABS: Bilirubin Urine Neg (Negative); Blood Urine Neg (Negative); Glucose Urine UA Norm (Normal); Ketones Urine Negative (Negative); Leukocyte Esterase Urine Negative (Negative); Nitrate Urine Negative (Negative); Protein Urine Neg (Negative); Specific Gravity, Urine 1.015 (1.005-1.030); Urine Appearance Clear (CLEAR); Urine Color Yellow (Yellow); Urobilinogen Urine Norm (Negative); pH Urine 5 (5-7)
[2020-03-12] MEDS: famotidine 20 mg/2 mL INJ IVP (11:44)
[2020-03-12] MEDS: sodium chloride 0.9% 250 ML 75 ML IV (11:44)
[2020-03-12] MEDS: sodium chloride 0.9% (100 ml) 100 ML 300 ML (12:10)
[2020-03-12] MEDS: diphenhydrAMINE 50 mg/mL SDV 1mL 25 MG IV (12:10)
[2020-03-12] MEDS: palonosetron 0.25 mg/5 mL SDV IV (12:10)
[2020-03-12] MEDS: ipratropium-albuterol 3 mL Neb INHALATION ×2 (16:59→17:34)
--- NOTE | 2020-03-26 14:34 | ONCRAD TMN_ITS ---
Radiation Oncology Weekly Treatment Management Patient: Iram Denis MR#: [id number] : 1955 Attending Physician: Alf Yanes M.D. Date of Service: 03/26/2020 The patient is a 65-year-old white female diagnosed with a clinical stage IIIB (T4N2) adenocarcinoma of the right hilum and upper lobe of the lung. She has received 22 Gy of a prescribed 60 Springer with an intensity modulated radiotherapy plan utilizing a step and shoot treatment technique. She receives weekly paclitaxel (50 mg/m???). Carboplatin will be re-instituted this week. Upon review of systems, she described improvement in her pulmonary function. On physical examination, the patient weighed 131 lbs. Her temperature was 98.8 ???F with a blood pressure of 125/76 mmHg. The pulse was 82 bpm and her respiratory rate was 20. Oxygen saturation with 3 L nasal cannula was 97%. There was no erythema within the treatment griffiths. Auscultation of the posterior lung griffiths identified right sided rhonchi and rales were present in the left lung. Continue thoracic radiotherapy as prescribed. Signed by: Dr. Alf Yanes 03/26/2020 2:32:23 PM
--- NOTE | 2020-04-08 14:31 | ONCRAD TMN_ITS ---
Treatment Management Note Patient Name: Iram Denis Date of : 1955 Date of Service: 04/08/2020 Attending Physician: Alf Yanes M.D. The patient is a 65-year-old white female diagnosed with a clinical stage IIIB (T4N2) adenocarcinoma of the right hilum and upper lobe of the lung. She has received 34 Gy of a prescribed 60 Springer with an intensity modulated radiotherapy plan utilizing a step and shoot treatment technique. She receives weekly carboplatin (AUC 2) and paclitaxel (50 mg/m???). Upon review of systems, she did not report any new complaints. On physical examination, the patient weighed 126 lbs. Her temperature was 97.9 ???F with a blood pressure of 197/83 mmHg. The pulse was 86 bpm and her respiratory rate was 20. Oxygen saturation with 3 L O2 via nasal cannula was 99%. There was no erythema within the treatment griffiths. Auscultation of the posterior lung griffiths identified bilateral rales with significantly increased right sided breath sounds. Continue thoracic radiotherapy as prescribed. Signed by: Dr. Alf Yanes 04/08/2020 2:30:17 PM
== END 2020-03-12 08:00 | disposition home or self-care (01) ==
LOC: ONCMED 05:25
PROVIDERS: Absent Provider Radiology Radiation Oncology; PCP Internal Medicine; Visit Provider Radiology Radiation Oncology
DX: Z51.11 Encounter for antineoplastic chemotherapy (principal); C34.11 Malignant neoplasm of upper lobe, right bronchus or lung; R35.0 Frequency of micturition
CPT/HCPCS: 77386; 81003; 96367; 96375; 96413; 96417; J1100; J1200; J2469; J2920; J3490; J7030; J7050; J9045; J9267

== ENCOUNTER → 2020-03-12 08:28 | Day surgery (SDC) | payer MEDICARE, MEDICAID, SELFPAY ==
[2020-03-12 10:37] VITALS: BP 133/78; PULSE 109; RESP 20; TEMP 36.5; O2SAT 96
== END ==
PROVIDERS: PCP Internal Medicine; Visit Provider Surgery
DX: Z45.2 Encounter for adjustment and management of vascular access device (principal)
CPT/HCPCS: 36569

== ENCOUNTER 2020-03-13 05:46 | Emergency (ER) | payer MEDICARE, MEDICAID, SELFPAY ==
[2020-03-13] VITALS (10 sets, daily range): BP systolic 94–129; BP diastolic 65–84; PULSE 112–121; RESP 18–24; TEMP 36.7; O2SAT 98–100; BMI 21.1
--- NOTE | 2020-03-13 05:51 | XR_ITS ---
WS: [id number] Portable AP upright chest, 03/13/2020 Clinical Data: Chest Pain Comparison: PA and lateral chest, 01/30/2020. Findings: The large mass in the right hilum extending of the right upper lobe has increased slightly. It now measures 10 cm in size. There may be obstructive pneumonia in the right lower lobe. There is volume loss in the right lung without mediastinal shift. There is a large right pleural effusion. The left lung is clear. Monitor leads are on the chest wall. XR/XR chest 1V portable [id number] Impression: 1. Enlarging right hilar and right upper lobe mass consistent with cancer of angela ng. 2. Development of right pleural effusion and possible obstructive pneumonia in the right lower lobe.
--- NOTE | 2020-03-13 05:54 | ECG_ITS ---
[facility] Test Date: 2020-03-13 Pat Name: Iram Denis Department: Room: Gender: Female Supervisor Dials: : 1955 Requested By: Deb Tay Order Number: [id number] Titus MD: Blair Adams M.D. Measurements Intervals [place] Rate: 117 P: 78 [place]: 157 QRS: 90 QRSD: 116 T: 76 QT: 376 QTc: 526 Interpretive Statements SINUS TACHYCARDIA INCOMPLETE RIGHT BUNDLE BRANCH BLOCK [90+ ms QRS DURATION, TERMINAL R IN V1/V2, 40+ ms S IN I/aVL/V4/V5/V6] POSSIBLE RIGHT VENTRICULAR HYPERTROPHY [SOME/ALL OF: PROMINENT R IN V1, LATE TRANSITION, RAD, CLARICE, SSS] NONSPECIFIC ST & T-WAVE ABNORMALITY Compared to ECG 06/02/2016 11:43:14 Incomplete right bundle-branch block now present Atrial abnormality now present Sinus rhythm no longer present Ventricular premature complex(es) no longer present T-wave abnormality still present Electronically Signed On 03-13-2020 17:20:40 WINCH DERRICK OPERATOR by Blair Adams M.D. [id number]
[2020-03-13 06:15] LABS: Basophils % 0.1 %; Eosinophils % 0.2 %; Hematocrit 27.1 % (37.0-47.0); Hemoglobin 8.6 g/dL (11.5-15.3); Lymphocytes # 0.5 10^3/uL (0.8-4.8); Lymphocytes % 2.9 %; Mean Corpuscular HGB Conc 31.7 g/dL (30.0-36.0); Mean Corpuscular Hemoglobin 24.9 pg (28.0-34.0); Mean Corpuscular Volume 78.3 fL (81-99); Mean Platelet Volume 8.9 fL (7.4-10.4); Monocytes # 0.9 10^3/uL (0.2-0.9); Monocytes % 5.2 %; Neutrophils # 15.76 10^3/uL (1.8-7.7); Nucleated Red Blood Cells % 0 %; Platelet Count 607 10^3/cmm (130-400); Red Blood Count 3.46 10^6/uL (4.1-5.3); Red Cell Distribution Width 15.4 % (12.1-15.1); White Blood Count 17.5 10^3/uL (4.0-10.0)
--- NOTE | 2020-03-13 06:24 | CTR_ITS ---
PROCEDURE INFORMATION: Exam: CT Angiography Chest With Contrast Exam date and time: 03/13/2020 6:25 AM Age: 65 years old Clinical indication: Chest pain; Type not specified; Patient HX: PT has lung CA, received first chemo treatment yesterday. ; Additional info: Cp TECHNIQUE: Imaging protocol: Computed tomographic angiography of the chest with intravenous contrast. 3D rendering (Not supervised by radiologist): MIP and/or 3D reconstructed images were created by the technologist. Radiation optimization: All CT scans at this facility use at least one of these dose optimization techniques: automated exposure control; mA and/or kV adjustment per patient size (includes targeted exams where dose is matched to clinical indication); or iterative reconstruction. Contrast material: OMNI 350; Contrast volume: 95 ml; Contrast route: INTRAVENOUS (IV); COMPARISON: CT chest w con* [id number] 02/04/2020 2:17 PM RADIATION DOSE METRICS: Total DLP (mGy-cm): 524.79 FINDINGS: Pulmonary arteries: . No pulmonary emboli. Aorta: There is calcification of the aorta but there is no aneurysm or dissection. Veins: A left arm PICC is present with the tip in the left innominate vein. Lungs: There is a large right hilar, suprahilar and right upper lobe lung mass that is increased in size since previous study. The measures about 13 by 9 x 8 cm in diameter. This encases and narrows the right upper lobe pulmonary arteries and also encases and narrows the right mainstem and upper lobe bronchi. The mass abuts the right side of the mediastinum and appears to invade the mediastinum. It also abuts the right anterior chest wall and may be now invading the chest wall anteriorly. There is a filling defect measuring about 2 cm in diameter the superior vena cava which may represent thrombus or tumor invasion. There is also a 2.5 cm rounded filling defect in the right pulmonary vein. This is consistent with tumor invasion into the right pulmonary vein. This has developed since previous examination. Bilateral interstitial and alveolar infiltrates have significantly worsened throughout the right lung since previous examination consistent with pneumonia. No pneumonia is seen in the left lung. Pleural space: Bilateral pleural effusions are present larger on the right side. These effusions have developed since previous examination. Heart: There is calcification of the coronary arteries. The heart is not enlarged. Lymph nodes: Unremarkable. No enlarged lymph nodes. Bones/joints: Unremarkable. No acute fracture. Soft tissues: Otherwise unremarkable CT/CT angio chest PE protcl [id number] IMPRESSION: 1. No pulmonary emboli are seen. There is no aortic dissection. 2. There is a large heterogeneous right hilar, suprahilar and upper lobe malignant mass that has increased in size since previous examination. 3. Marked worsening of pulmonary consolidation in the right lobe consistent with pneumonia. 4. Enlarging pleural effusions. 5. The mass invades the mediastinum and right anterior chest wall. 6. There are enlarging filling defects in the superior vena cava and right pulmonary vein consistent with tumor invasion and thrombus. Radiation Dose CTDIVOL = (mGy): DLP = 524.79 (mGy-cm)
[2020-03-13 06:25] LABS: INR 1.09 (0.8-1.2)
[2020-03-13] MEDS: morphine 4 mg/mL SDV 1 mL IVP (06:25)
[2020-03-13] MEDS: ondansetron 2 mg/ML SDV 2 mL 4 MG IVP (06:25)
--- NOTE | 2020-03-13 06:29 | W.ED.CHESTPA ---
HPI - Chest Pain General: Chief Complaint: Chest Pain Stated Complaint: chest pain/1st round of chemo yesterday Time Seen by Provider: 03/13/20 06:22 Source: patient Mode of arrival: ambulatory Limitations: no limitations History of Present Illness: HPI narrative: 65-year-old female with history of right-sided lung cancer started chemo and radiation yesterday. States she been having severe sharp chest pain since this morning. She states the pain is an 8 out of 10 and sharp in nature. She denies any vomiting or diarrhea. She has had some slight shortness of breath. She is on oxygen at all times due to her COPD and cancer. She denies any worsening or improving factors. Associated symptoms: Deny abdominal pain, dyspnea, fever(s), nausea or vomiting Review of Systems Const: Denies: fever(s), chills, body aches or change in appetite Eyes: Denies: blurry vision or eye discomfort ENMT: Denies: throat pain or dental pain Card: Reports: chest pain Resp: Denies: dyspnea GI: Denies: abdominal pain, nausea, vomiting or diarrhea : Denies: dysuria Musc: Denies: neck pain or back pain Skin/Breast: Denies: rash Neuro: Denies: headache(s) Psych: Denies: depression Delfin/Lymph: Denies: easy bruising All/Imm: Denies: urticaria PFSH ED PFSH: Medical History (Updated 03/13/20 @ 09:24 by Kaz Gallegos MD) Panic disorder [episodic paroxysmal anxiety] Social History Smoking and tobacco status: current every day smoker cigarettes Packs smoked per day: 1 Years cigarettes smoked: 44 Quit status (tobacco): considering quitting Smoking risk assessment/counseling performed?: Yes Tobacco counseling given: counseling >3 minutes Alcohol intake: current Alcohol intake frequency: few times a month Alcohol type: beer Lives independently: Yes Household members: none Marital status: Current occupational status: retired History of recent travel: No Current gender identity: Female Physical Exam Const: COMMON NORMALS: no acute distress, patient oriented x3 and healthy appearing HENMT: COMMON NORMALS: normocephalic and atraumatic HEAD & SCALP: normocephalic and atraumatic Eye: COMMON NORMALS: Equal, round and reactive pupils present and EOMs intact bilaterally PUPIL: Yes Equal, round and reactive pupils present Neck/C-Spine: COMMON NORMALS: full ROM and supple Chest: COMMONS NORMALS: normal inspection of the chest and normal palpation of entire chest wall Resp: COMMON NORMALS: normal respiratory effort, No retractions, No use of accessory muscles and clear to auscultation bilaterally AUSCULTATION: clear to auscultation bilaterally Cardio: COMMON NORMALS: regular rate, regular rhythm and No murmurs present (Cardio) RATE: regular rate RHYTHM: regular rhythm GI: COMMON NORMALS: Normal to inspection, nondistended, normoactive bowel sounds present, Soft to palpation, non-tender and no masses PALPATION: Yes Soft to palpation Extremity: COMMON NORMALS: normal to inspection and full ROM Neuro: COMMON NORMALS: patient oriented x3, moves all extremities and no focal motor deficits Psych: COMMON NORMALS: mental status grossly normal, Normal thought process present and cooperative THOUGHT PROCESS: Normal thought process present Skin: COMMON NORMALS: no rashes or lesions noted and no wounds GENERAL SKIN EXAM: no rashes or lesions noted Course Vital Signs: Vital signs: Vital Signs Temperature 98.0 F 03/13/20 05:51 Pulse Rate 118 H 03/13/20 09:40 Respiratory Rate 22 H 03/13/20 09:40 Blood Pressure 101/76 03/13/20 08:47 Pulse Oximetry 98 03/13/20 09:40 MDM - Chest Pain MDM Narrative: Medical decision making narrative: Patient presents here with chest pain is likely related to her COPD and cancer in her treatment. She also has a possible small pneumonia. I did offer her admission here and she refused she states she does not want to stay in the hospital she is concerned she get sicker and does not want to be around Covid. We will place her on pain meds along with albuterol steroids and antibiotic. She has appointment today with her oncologist and she is to follow-up then and return if worsening. She understands agrees to plan. Lab Data: Labs: Lab Results 03/13/20 03/13/20 03/13/20 Range/Units 06:00 06:00 06:00 WBC 17.5 H (4.0-10.0) 10^3/ uL RBC 3.46 L (4.1-5.3) 10^6/u L Hgb 8.6 L (11.5-15.3) g/dL Hct 27.1 L (37.0-47.0) % MCV 78.3 L (81-99) fL MCH 24.9 L (28.0-34.0) pg MCHC 31.7 (30.0-36.0) g/dL RDW 15.4 H (12.1-15.1) % Plt Count 607 H (130-400) 10^3/c mm MPV 8.9 (7.4-10.4) fL Neut % (Auto) 90.0 % Lymph % (Auto) 2.9 % [place] % (Auto) 5.2 % Eos % (Auto) 0.2 % Baso % (Auto) 0.1 % Neut # (Auto) 15.76 H (1.8-7.7) 10^3/u L Lymph # (Auto) 0.5 L (0.8-4.8) 10^3/u L [place] # (Auto) 0.9 (0.2-0.9) 10^3/u L Eos # (Auto) 0.0 (0.0-0.8) 10^3/u L Baso # (Auto) 0.0 (0.0-0.1) 10^3/u L Nucleated RBC % (a uto) 0 % Nucleated RBCs # 0.0 /100WBC PT 14.50 (12.1-14.9) SECO NDS INR 1.09 (0.8-1.2) Sodium 123 L (136-145) mmol/L Potassium 5.5 H (3.5-5.1) mmol/L Chloride 87 L (98-107) mmol/L Carbon Dioxide 22 (22-29) mmol/L Anion Gap 19.5 H (5-19) BUN 30 H (8-23) mg/dL Creatinine 0.8 (0.5-0.9) mg/dL GFR Calculation 71.8 L (90-130) mL/min Glucose 184 H (65-115) mg/dL Calculated Osmolal ity 267 L (285-295) mOsm/k g Calcium 9.3 (8.5-10.5) mg/dL Magnesium 2.0 (1.7-2.3) mg/dL Total Bilirubin 0.2 (0.15-1.2) mg/dL AST 45 H (0-32) U/L ALT 44 H (0-33) U/L Alkaline Phosphata se 253 H (35-105) IU/L Troponin T Baselin e (0-10) ng/L Troponin T 120 Min [place] (0-10) ng/L Delta Troponin T (0-10) ABS# Total Protein 6.6 (6.6-8.7) g/dL Albumin 3.5 (3.5-5.2) g/dL Globulin 3.1 (1.3-4.6) g/dL 03/13/20 03/13/20 Range/Units 06:00 07:50 WBC (4.0-10.0) 10^3/ uL RBC (4.1-5.3) 10^6/u L Hgb (11.5-15.3) g/dL Hct (37.0-47.0) % MCV (81-99) fL MCH (28.0-34.0) pg MCHC (30.0-36.0) g/dL RDW (12.1-15.1) % Plt Count (130-400) 10^3/c mm MPV (7.4-10.4) fL Neut % (Auto) % Lymph % (Auto) % [place] % (Auto) % Eos % (Auto) % Baso % (Auto) % Neut # (Auto) (1.8-7.7) 10^3/u L Lymph # (Auto) (0.8-4.8) 10^3/u L [place] # (Auto) (0.2-0.9) 10^3/u L Eos # (Auto) (0.0-0.8) 10^3/u L Baso # (Auto) (0.0-0.1) 10^3/u L Nucleated RBC % (a uto) % Nucleated RBCs # /100WBC PT (12.1-14.9) SECO NDS INR (0.8-1.2) Sodium (136-145) mmol/L Potassium (3.5-5.1) mmol/L Chloride (98-107) mmol/L Carbon Dioxide (22-29) mmol/L Anion Gap (5-19) BUN (8-23) mg/dL Creatinine (0.5-0.9) mg/dL GFR Calculation (90-130) mL/min Glucose (65-115) mg/dL Calculated Osmolal ity (285-295) mOsm/k g Calcium (8.5-10.5) mg/dL Magnesium (1.7-2.3) mg/dL Total Bilirubin (0.15-1.2) mg/dL AST (0-32) U/L ALT (0-33) U/L Alkaline Phosphata se (35-105) IU/L Troponin T Baselin e 581 H* (0-10) ng/L Troponin T 120 Min [place] 505.3 H (0-10) ng/L Delta Troponin T -75.7 L (0-10) ABS# Total Protein (6.6-8.7) g/dL Albumin (3.5-5.2) g/dL Globulin (1.3-4.6) g/dL Imaging Data^: CT Chest: Attestation: I personally reviewed and interpreted this imaging study as follows: Radiologist's impression: [address] [address] [address] Scan Report Signed Patient: Iarm Denis Unit #: [id number] : 1955 Age/Sex: 65 / F ADM Date: 03/13/20 Loc: ER Room/Bed: Attending Dr: Ordering Provider/Ordering MD: Kaz Gallegos MD Date of Service: 03/13/20 Procedure(s): CT angio chest PE protcl [id number] Accession Number(s): [id number] Report Number: [id number] PROCEDURE INFORMATION: Exam: CT Angiography Chest With Contrast Exam date and time: 03/13/2020 6:25 AM Age: 65 years old Clinical indication: Chest pain; Type not specified; Patient HX: PT has lung CA, received first chemo treatment yesterday. ; Additional info: Cp TECHNIQUE: Imaging protocol: Computed tomographic angiography of the chest with intravenous contrast. 3D rendering (Not supervised by radiologist): MIP and/or 3D reconstructed images were created by the technologist. Radiation optimization: All CT scans at this facility use at least one of these dose optimization techniques: automated exposure control; mA and/or kV adjustment per patient size (includes targeted exams where dose is matched to clinical indication); or iterative reconstruction. Contrast material: OMNI 350; Contrast volume: 95 ml; Contrast route: INTRAVENOUS (IV); COMPARISON: CT chest w con* [id number] 02/04/2020 2:17 PM RADIATION DOSE METRICS: Total DLP (mGy-cm): 524.79 FINDINGS: Pulmonary arteries: . No pulmonary emboli. Aorta: There is calcification of the aorta but there is no aneurysm or dissection. Veins: A left arm PICC is present with the tip in the left innominate vein. Lungs: There is a large right hilar, suprahilar and right upper lobe lung mass that is increased in size since previous study. The measures about 13 by 9 x 8 cm in diameter. This encases and narrows the right upper lobe pulmonary arteries and also encases and narrows the right mainstem and upper lobe bronchi. The mass abuts the right side of the mediastinum and appears to invade the mediastinum. It also abuts the right anterior chest wall and may be now invading the chest wall anteriorly. There is a filling defect measuring about 2 cm in diameter the superior vena cava which may represent thrombus or tumor invasion. There is also a 2.5 cm rounded filling defect in the right pulmonary vein. This is consistent with tumor invasion into the right pulmonary vein. This has developed since previous examination. Bilateral interstitial and alveolar infiltrates have significantly worsened throughout the right lung since previous examination consistent with pneumonia. No pneumonia is seen in the left lung. Pleural space: Bilateral pleural effusions are present larger on the right side. These effusions have developed since previous examination. Heart: There is calcification of the coronary arteries. The heart is not enlarged. Lymph nodes: Unremarkable. No enlarged lymph nodes. Bones/joints: Unremarkable. No acute fracture. Soft tissues: Otherwise unremarkable CT/CT angio chest PE protcl [id number] IMPRESSION: 1. No pulmonary emboli are seen. There is no aortic dissection. 2. There is a large heterogeneous right hilar, suprahilar and upper lobe malignant mass that has increased in size since previous examination. 3. Marked worsening of pulmonary consolidation in the right lobe consistent with pneumonia. 4. Enlarging pleural effusions. 5. The mass invades the mediastinum and right anterior chest wall. 6. There are enlarging filling defects in the superior vena cava and right pulmonary vein consistent with tumor invasion and thrombus. Radiation Dose CTDIVOL = (mGy): DLP = 524.79 (mGy-cm) EKG Data^: EKG 1: Attestation: I personally reviewed and interpreted this EKG as follows: EKG interpretation date: 03/13/20 EKG interpretation time: 07:58 Interpretation: nsr hr [address] or t wave abnormalities qrs 132 qtc 395 Discharge Plan Discharge Patient Disposition: Home Clinical Impression: Atypical chest pain, Dyspnea Condition: Stable Prescriptions: New albuterol sulfate 2.5 mg /3 mL (0.083 %) solution for nebulization 2.5 mg INHALATION Q4H PRN (Reason: shortness of breath or wheezing) Qty: 90 RF: 0 Metz 5-325 mg tablet 1 tab PO Q6H PRN (Reason: pain) Qty: 14 RF: 0 prednisone 50 mg tablet 50 mg PO DAILY Qty: 5 RF: 0 doxycycline hyclate 100 mg capsule 100 mg PO BID 7 Days Qty: 14 RF: 0 No Action lisinopril-hydrochlorothiazide 20-12.5 mg tablet 1 tab PO DAILY RF: 0 clonazepam 0.5 mg tablet 0.5 mg PO TID PRN (Reason: anxiety) Qty: 90 RF: 2 sertraline [Zoloft] 100 mg tablet 150 mg PO DAILY Qty: 45 RF: 2 albuterol sulfate [ProAir HFA] 90 mcg/actuation HFA aerosol inhaler 2 puff INHALATION Q4H PRN (Reason: Shortness Of Breath) RF: 0 Discharge Orders: Discharge ED (Routine); Ordered 03/13/20 Ordered By: Kaz Gallegos Referrals: Jayna Schmitt MD [Primary Care Provider] - 1-3 days Discharge Diet: Advance as tolerated Discharge Activity: Resume usual activity Patient Instructions: Chest Pain (ED), Dyspnea (ED) Coding Level of Care Code 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
[2020-03-13 06:32] LABS: Alanine Aminotransferase 44 U/L (0-33); Albumin Level 3.5 g/dL (3.5-5.2); Alkaline Phosphatase 253 IU/L (35-105); Blood Urea Nitrogen 30 mg/dL (8-23); Calcium 9.3 mg/dL (8.5-10.5); Carbon Dioxide 22 mmol/L (22-29); Chloride 87 mmol/L (98-107); Globulin 3.1 g/dL (1.3-4.6); Glomerular Filtration Rate 71.8 mL/min (90-130); Glucose 184 mg/dL (65-115); Osmolality Calculated 267 mOsm/kg (285-295); Sodium 123 mmol/L (136-145); Total Bilirubin 0.2 mg/dL (0.15-1.2); Total Protein 6.6 g/dL (6.6-8.7)
[2020-03-13 06:33] LABS: Anion Gap 19.5 (5-19); Aspartate Amino Transferase 45 U/L (0-32); Potassium 5.5 mmol/L (3.5-5.1)
[2020-03-13 06:42] LABS: Troponin(5th) Baseline 581 ng/L (0-10)
--- NOTE | 2020-03-13 07:54 | ECG_ITS ---
[facility] Test Date: 2020-03-13 Pat Name: Iram Denis Department: Room: Gender: Female Recovery Engineer: : 1955 Requested By: Deb Tay Order Number: [id number] Titus MD: Blair Adams M.D. Measurements Intervals [place] Rate: 114 P: 71 MI: 149 QRS: 99 QRSD: 132 T: 83 QT: 328 QTc: 452 Interpretive Statements SINUS TACHYCARDIA WITH OCCASIONAL VENTRICULAR PREMATURE COMPLEXES RIGHT BUNDLE BRANCH BLOCK [120+ ms QRS DURATION, UPRIGHT V1, 40+ ms S IN I/aVL/V4/V5/V6] Compared to ECG 03/13/2020 05:54:30 Ventricular premature complex(es) now present T-wave abnormality no longer present Electronically Signed On 03-13-2020 17:36:43 IRRIGATION INSTALLATION SPECIALIST by Blair Adams M.D. [email or web address]
[2020-03-13] MEDS: HYDROmorphone 1 mg/mL INJ 1 mL 0.5 MG IVP (08:38)
[2020-03-13 09:05] LABS: Troponin 5 2HR 505.3 ng/L (0-10)
[2020-03-13] MEDS: ipratropium-albuterol 3 mL Neb INHALATION (09:32)
== END 2020-03-13 10:17 | disposition home or self-care (01) ==
PROVIDERS: Emergency Medicine; Emergency Provider Emergency Medicine; PCP Internal Medicine
DX: R07.89 Other chest pain (principal); R06.00 Dyspnea, unspecified; F17.210 Nicotine dependence, cigarettes, uncomplicated
CPT/HCPCS: 12345; 71045; 71275; 80053; 83735; 84484; 85025; 85610; 93005; 94640; 96374; 96375; 99283; 99284; J1170; J2270; J2405; Q9967

== ENCOUNTER 2020-03-20 05:38 | Outpatient (RCR) | payer MEDICARE, MEDICAID, SELFPAY ==
--- NOTE | 2020-03-18 14:37 | ONCRAD TMN_ITS ---
Radiation Oncology Weekly Treatment Management Patient: Iram Denis MR#: [id number] : 1955 Attending Physician: Alf Yanes M.D. 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 She has received 16 Gy of a prescribed 60 Springer with an intensity modulated radiotherapy plan utilizing a step and shoot treatment technique. She receives weekly paclitaxel (50 mg/m???). Carboplatin was discontinued due to an adverse event during initial administration. Upon review of systems, he described improvement in her pulmonary function. On physical examination, the patient weighed 132 lbs. Her temperature was 99 ???F with a blood pressure of 150/75 mmHg. The pulse was 112 bpm and her respiratory rate was 20. Oxygen saturation with 3 L nasal cannula was 98%. There was no erythema within the treatment griffiths. Auscultation of the posterior lung griffiths identified improved breath sounds. Continue thoracic radiotherapy as planned. Signed by: Dr. Alf Yanes 03/18/2020 2:36:11 PM
[2020-03-19 09:55] LABS: Basophils % 0.3 %; Hematocrit 30.5 % (37.0-47.0); Hemoglobin 9.5 g/dL (11.5-15.3); Lymphocytes # 0.2 10^3/uL (0.8-4.8); Lymphocytes % 2.3 %; Mean Corpuscular HGB Conc 31.1 g/dL (30.0-36.0); Mean Corpuscular Hemoglobin 24.8 pg (28.0-34.0); Mean Corpuscular Volume 79.6 fL (81-99); Mean Platelet Volume 8.5 fL (7.4-10.4); Monocytes # 0.1 10^3/uL (0.2-0.9); Monocytes % 0.8 %; Neutrophils # 7.39 10^3/uL (1.8-7.7); Neutrophils % 94.7 %; Nucleated Red Blood Cells % 0 %; Platelet Count 475 10^3/cmm (130-400); Red Blood Count 3.83 10^6/uL (4.1-5.3); Red Cell Distribution Width 16.2 % (12.1-15.1); White Blood Count 7.8 10^3/uL (4.0-10.0)
[2020-03-19 10:22] LABS: Alanine Aminotransferase 34 U/L (0-33); Albumin Level 3.6 g/dL (3.5-5.2); Alkaline Phosphatase 174 IU/L (35-105); Anion Gap 15.1 (5-19); Aspartate Amino Transferase 15 U/L (0-32); Blood Urea Nitrogen 29 mg/dL (8-23); Calcium 9.6 mg/dL (8.5-10.5); Carbon Dioxide 27 mmol/L (22-29); Chloride 89 mmol/L (98-107); Globulin 3.2 g/dL (1.3-4.6); Glucose 134 mg/dL (65-115); Osmolality Calculated 270 mOsm/kg (285-295); Potassium 5.1 mmol/L (3.5-5.1); Sodium 126 mmol/L (136-145); Total Bilirubin 0.3 mg/dL (0.15-1.2); Total Protein 6.8 g/dL (6.6-8.7)
[2020-03-19] MEDS: famotidine 20 mg/2 mL INJ IVP (11:43)
[2020-03-19] MEDS: diphenhydrAMINE 50 mg/mL SDV 1mL 25 MG IV (11:45)
[2020-03-19] MEDS: palonosetron 0.25 mg/5 mL SDV IV (11:47)
[2020-03-19] MEDS: sodium chloride 0.9% 250 ML 75 ML IV (11:47)
--- NOTE | 2020-03-21 17:32 | ONC FU_ITS ---
Dr. Almeida Patient Follow-Up Note Patient: Iram Denis Unit #: [id number]: 1955 Dicatated By: Jeff Almeida M.D.Date of Visit:Mar 19, 2020 Onc Med Follow-up/Prog Note Chief Complaint: Lung cancer. History of Present Illness: This is a 65-year-old woman with newly diagnosed adenocarcinoma involving the upper lobe of the right lung, by clinical evaluation stage IIIB (T4, N2, M0). She has had gradually worsening shortness of breath over at least the past year. More recently, she also had worsening cough, generally productive of yellow sputum, though about a month ago she did have some hemoptysis. Her chest x-ray on 01/30/2020 showed a 10 cm right hilar/suprahilar mass extending into the right upper lobe consistent with a primary lung malignancy. This was noted to probably invade the mediastinum. Chest CT on 02/04/2020 showed large right hilar and suprahilar mass measuring 11.9 x 6.1 x 7.1 cm. There was slight narrowing of the distal main pulmonary artery and there was narrowing of the adjacent segmental and subsegmental right upper lobe pulmonary branches. There was encasement of the right mainstem bronchus with associated narrowing. There was invasion into the mediastinum and adjacent mediastinal fat, and there was mild narrowing of the distal trachea. There was narrowing with encasement of the right superior vena cava which appeared partially thrombosed. There was evidence of tumor thrombus in the mid segment of the SVC measuring approximately 4.1 cm. There was conglomerate right hilar lymphadenopathy. Interstitial infiltrates throughout the right lung appeared suspicious for lymphangitic metastases. On 02/08/2020 she underwent bronchoscopy/EBUS with endobronchial biopsy from the right upper lobe and with FNA biopsy of station 4R lymph node. Pathology on the station 4R lymph node biopsy was consistent with metastatic adenocarcinoma, favoring lung primary. The tumor cells were TTF-1 positive. PET/CT on 02/09/2020 showed FDG avid right upper lobe mass measuring 12.1 x 5.6 cm. There was mild activity and a 1.5 cm subcarinal lymph node, consistent with metastatic disease. Postobstructive atelectasis with right upper and middle lobe interstitial thickening was suspicious for carcinomatosis. I had seen her initially on 02/20/2020. As her disease appeared to be localized by clinical evaluation, she was recommended to undergo radiation concurrently with weekly carboplatin/paclitaxel chemotherapy. As she had symptoms of impending superior vena cava obstruction and she had poor peripheral venous access, she received several fractions of radiation prior to her week 1 chemotherapy infusion which was administered on 03/12/2020. With her treatment she was able to complete the full dose of paclitaxel, but the carboplatin was interrupted due to development of acute shortness of breath and pulmonary congestion. An infusion reaction was suspected, but given her underlying lung disease and locally advanced malignancy, I was not certain of that. In any case, with additional steroid and pulmonary nebulizers her symptoms improved, and she was able to continue her radiation. She is seen for a follow-up visit. She continues to have very limited activity with ECOG score 2. However, in the last few days she has been feeling a little better. Her breathing has improved with the pulmonary nebulizers and she has been sleeping better with oxygen. Her appetite is still not good, but she is starting to eat better. She has not had fever. She does have some night sweating. She still has cough, but she says it is different. She is bringing up a little bit of brownish sputum. She he occasionally has pain in the upper right chest and she also reports having pain across her upper back. She has not had any hemoptysis. She occasionally has nausea. She has had heartburn/acid reflux. She also has constipation, but that is getting better now. Bladder function also has improved. She does not complain of headache or dizziness, and she has no focal neurologic symptoms. Medications: CVS Nicotine 1 Patch(es) (of 21 mg/24hr) Patch 24 Hr Transdermal q 24 hours, Ipratropium-Albuterol 3 mL (of 0.5-2.5 (3) mg/3mL) Solution Inhalation four times a day PRN, KlonoPIN 1 Tablet (of 0.5 mg) Oral daily, Lisinopril-hydroCHLOROthiazide 1 Tablet (of 20-12.5 mg) Oral daily, oxyCODONE HCl 1 - 2 Tablet (of 5 mg) Oral q 4 hours, Zoloft 1 Tablet (of 50 mg) Oral daily Allergies: No Known Allergies. Review of Systems: Constitutional - Her energy has been a little better over the last few days, but she still has very limited activity. She also has been eating a little better, though her appetite is still not good. She has not had fever. She does have some night sweating. ECOG score is 2, ENMT - No sinus congestion/drainage. Her mouth is dry. No sore throat or difficulty swallowing, Hematologic/Lymphatic - She has had some bruising, Respiratory - She has shortness of breath, but her breathing is getting a little better. She has cough, but it is different now. She brings up a little bit of brownish sputum. She has pain occasionally in the right chest. No hemoptysis, Cardiovascular - No angina pain. No palpitations, Gastrointestinal - She occasionally has nausea. She has occasional heartburn/acid reflux. She has constipation but that is getting better. No blood in the stool or black stools, Genitourinary (F) - No dysuria or hematuria. No urinary frequency. No urgency or incontinence, Musculoskeletal - She has pain in her upper back. She also has pain in her knees, Integumentary - No skin rash, Neurologic - No headache or dizziness. No numbness or tingling. No other focal neurologic symptoms, Psychiatric - She has anxiety/depression, but that is pretty good now. She has been sleeping a little better with oxygen. Vital Signs: Performed on Mar 19, 2020 10:47 Height - 66.00 in Weight - 131.6 lbs (HIGH) BSA - 1.67 sq.m BMI - 21.24 Temperature - 97.7 F (LOW) Pulse - 112 /min (HIGH) Respiration - 16 /min BP - 129/75 mm(hg) O2 Sat - 99 % Pain - 0 Physical Examination: Constitutional - She appears generally weak and chronically ill, Eyes - Sclerae nonicteric. Conjunctivae clear, ENMT - No lesions noted in the oral cavity, Hematologic/Lymphatic - No cervical, clavicular, or axillary adenopathy, Respiratory - Lungs show diminished air movement bilaterally, worse on the right, Cardiovascular - Heart rhythm is regular. There is a mild tachycardia. There is no murmur, gallop, or rub noted, Abdomen - Soft. Liver and spleen are not enlarged. There is no abdominal mass or ascites noted and there is no inguinal adenopathy, Extremities - No edema, Neurologic - No focal neurologic deficits noted. Lab/Imaging: Test performed on Mar 19, 2020 09:38 Sodium 126 mmol/L Potassium 5.1 mmol/L Chloride 89 mmol/L CO2 27 mmol/L Anion Gap 15.1 BUN 29 mg/dL Creatinine 0.6 mg/dL Cr Clearance (Est) 87.8400 mL/min eGFR 100.0 mL/min Glucose 134 mg/dL Osmolality - Calculated 270 mOsm/kg Calcium 9.6 mg/dL Protein, Total 6.8 g/dL Albumin 3.6 g/dL Globulin 3.2 g/dL Bilirubin, Total 0.3 mg/dL ALT (SGPT) 34 U/L AST (SGOT) 15 U/L Alkaline Phosphatase 174 IU/L WBC 7.8 10 3/uL RBC 3.83 10 6/uL HGB 9.5 g/dL HCT 30.5 % MCV 79.6 fL MCH 24.8 pg MCHC 31.1 g/dL RDW 16.2 % Platelet Count 475 10 3/cmm MPV 8.5 fL Neutrophils 7.39 10 3/uL Lymphocytes 0.2 10 3/uL Monocytes 0.1 10 3/uL Eosinophils 0.0 10 3/uL Basophils 0.0 10 3/uL Neutrophil % 94.7 % Lymphocyte % 2.3 % Monocyte % 0.8 % Eosinophil % 0.0 % Basophils % 0.3 % NRBC % 0 % Impression: 1. Patient with adenocarcinoma involving the upper lobe of the right lung, by clinical evaluation stage at least IIIB (T4, N2, M0). 2. She underwent bronchoscopy/EBUS with right upper lobe endobronchial biopsy and with FNA biopsy of station 4R lymph node on 02/08/2020. Her other medical illnesses include: 3. Hypertension. 4. COPD. 5. She has history of migraine headaches. 6. She has remote history of cervical cancer, treated with cone biopsy. 7. Anxiety/depression. 8. Nicotine dependence. At presentation her disease was localized but very advanced within the chest. She was recommended to undergo radiation concurrently with weekly carboplatin/paclitaxel chemotherapy. By the time she started her treatment she had become very symptomatic, including impending superior vena cava syndrome. We had to delay starting her chemotherapy due to poor peripheral venous access, and she had received several fractions of radiation prior to her week 1 infusion of carboplatin/paclitaxel. She was able to complete the paclitaxel infusion, but her carboplatin was interrupted due to acute onset of shortness of breath and pulmonary congestion. This was possibly an infusion reaction, though I was not entirely certain of that. She improved with additional steroid therapy and pulmonary nebulizers, and she was able to continue with radiation. She is now showing some improvement in her symptoms, though she still has marginal performance status. Plan: She will proceed now with her week 2 chemotherapy. I gave her the option to try both chemotherapy medications with this treatment, as I was not convinced that the symptoms with her week 1 infusion were actually due to a reaction to the carboplatin. We discussed the fact that the combination chemotherapy would potentially be more effective. Nonetheless, she prefers not to take the risk of reaction, and her further chemotherapy treatment now will be limited to paclitaxel monotherapy. The dosage will remain the same. She will a follow-up visit in 1 week. In the meantime, she will be given a prescription for Protonix for her GERD symptoms. Signed By: Jeff Almeida M.D. <<Signature on File>>
== END 2020-03-20 23:59 | disposition home or self-care (01) ==
LOC: ONCMED 05:38
PROVIDERS: Internal Medicine Medical Oncology; Absent Provider Radiology Radiation Oncology; PCP Internal Medicine; Visit Provider Radiology Radiation Oncology
DX: Z51.0 Encounter for antineoplastic radiation therapy (principal); Z51.11 Encounter for antineoplastic chemotherapy; C34.11 Malignant neoplasm of upper lobe, right bronchus or lung; C77.1 Secondary and unspecified malignant neoplasm of intrathoracic lymph nodes; K21.9 Gastro-esophageal reflux disease without esophagitis; I10 Essential (primary) hypertension; J44.9 Chronic obstructive pulmonary disease, unspecified; F41.8 Other specified anxiety disorders; F17.210 Nicotine dependence, cigarettes, uncomplicated; Z85.41 Personal history of malignant neoplasm of cervix uteri; Z79.899 Other long term (current) drug therapy
CPT/HCPCS: 77336; 77386; 80053; 85025; 96367; 96375; 96413; 99214; J1100; J1200; J2469; J3490; J7030; J7050; J9267

== ENCOUNTER 2020-03-21 00:57 | Inpatient (IN) | payer MEDICARE, MEDICAID, SELFPAY ==
[2020-03-21] VITALS (72 sets, daily range): BP systolic 77–152; BP diastolic 49–88; PULSE 72–157; RESP 14–38; TEMP 36.1–36.9; O2SAT 92–100; BMI 20.9
--- NOTE | 2020-03-21 01:14 | ED_ITS ---
HPI - Chest Pain General: Chief Complaint: Chest Pain Stated Complaint: chest pains Time Seen by Provider: 03/21/20 01:08 Source: patient Mode of arrival: ambulatory Limitations: no limitations History of Present Illness: HPI narrative: Mrs. Denis is a very nice 65-year-old female who comes in with a complaints of chest pain. She states she has had left-sided chest pain which she describes as a aching severe pain in the left side of her chest. She states the pain radiates up to her neck and back across both shoulders. She has associated shortness of breath. She has nausea with this. She denies diaphoresis or syncope. Patient is unaware of any exacerbating or alleviating factors. Patient has a known history of lung cancer but she states her tumor is located on the right side. She denies any pain radiating to the right side of her chest but does have radiation to her right shoulder but this does involve the left shoulder as well. Patient states she had a recent episode of chest pain that was similar last week but it was not as severe. Patient currently does go through chemotherapy once a week and has radiation therapy daily. Associated symptoms: Reports dyspnea and palpitations; Deny abdominal pain, diaphoresis, fever(s), syncope or vomiting Review of Systems Const: Denies: fever(s), chills, body aches, fatigue, malaise or diaphoresis Eyes: Denies: change in vision, blurry vision, photophobia, eye discomfort, eye discharge, eye redness or yellow eyes ENMT: Denies: throat pain, odynophagia, hoarseness, swelling of lips/tongue, ear or mastoid pain, ear discharge, change in hearing or nasal discharge Card: Reports: chest pain and palpitations; Denies: irregular heart rhythm, edema, lightheadedness, syncope, pre-syncope, dyspnea on exertion or orthopnea Resp: Reports: dyspnea; Denies: productive cough, non-productive cough, wheezing, hemoptysis or chest congestion GI: Denies: abdominal pain, vomiting, hematemesis, coffee ground emesis, heartburn, diarrhea, constipation, GI cramping, hematochezia or melena : Denies: flank pain, dysuria, urinary frequency, urinary urgency or hematuria Musc: Denies: neck pain, back pain, extremity pain, extremity swelling, joint pain, joint swelling, joint redness, joint warmth or joint stiffness Skin/Breast: Denies: rash, pruritus, erythema, skin pain or skin tenderness Neuro: Denies: headache(s), numbness in extremities, weakness in extremities, sensory changes, lack of coordination, difficulty walking, dizziness, vertigo, confusion, Slurred speech present or seizure-like activity Delfin/Lymph: Denies: easy bruising, easy bleeding, petechiae, purpura or enlarged lymph nodes All/Imm: Denies: urticaria, throat swelling, tongue swelling, facial swelling or acute wheezing PFSH ED PFSH: Medical History (Updated 03/21/20 @ 05:28 by Deb Burton) Lung cancer Lung mass Osteoarthritis of left knee Panic disorder [episodic paroxysmal anxiety] Port-A-Cath in place 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 Surgical History (Updated 03/21/20 @ 04:52 by Akosua Portillo MD) S/P bronchoscopy Social History Smoking and tobacco status: current every day smoker cigarettes Packs smoked per day: 1 Years cigarettes smoked: 44 Quit status (tobacco): considering quitting Smoking risk assessment/counseling performed?: Yes Tobacco counseling given: counseling >3 minutes Alcohol intake: current Alcohol intake frequency: few times a month Alcohol type: beer Lives independently: Yes Household members: none Marital status: Current occupational status: retired History of recent travel: No Current gender identity: Female Physical Exam Const: COMMON NORMALS: patient oriented x3, no limitations and alert GENERAL APPEARANCE: cooperative HENMT: COMMON NORMALS: normocephalic, atraumatic, external ears normal, EAC's normal and Normal external nose present HEAD & SCALP: normal to inspection, normocephalic and atraumatic FACE & SINUS: normal facial exam and face symmetric NOSE: Normal external nose present and Normal nares present EXTERNAL EAR: Yes external ears normal EXTERNAL AUDITORY CANAL: EAC's normal MOUTH: Normal oral and palatal mucosa present, lip normal and tongue normal Eye: COMMON NORMALS: Equal, round and reactive pupils present and conjunctivae normal GENERAL EYE: appearance normal, both eyes and all related structures ALIGNMENT: Yes alignment normal PERIORBITAL: periorbital findings normal EYELID: eyelids normal CONJUNCTIVA: Yes conjunctivae normal SCLERA: sclerae normal PUPIL: Yes Equal, round and reactive pupils present Neck/C-Spine: COMMON NORMALS: full ROM, no lymphadenopathy, supple, no meningeal signs and no JVD GENERAL: Yes normal visual inspection and Yes trachea midline Chest: COMMONS NORMALS: normal inspection of the chest and normal palpation of entire chest wall Resp: COMMON NORMALS: normal respiratory effort, No retractions, No use of accessory muscles and clear to auscultation bilaterally EFFORT & INSPECTION: Yes able to speak in complete sentences and Yes symmetric chest movement AUSCULTATION: clear to auscultation bilaterally, no crackles, no rales, no rhonchi and no wheezes Cardio: COMMON NORMALS: no JVD, regular rate, regular rhythm, S1 normal heart sound present and S2 normal heart sound present RATE: regular rate RHYTHM: regular rhythm HEART SOUNDS: S1 normal heart sound present, S2 normal heart sound present, no click, no gallops, no murmurs and no rubs GI: COMMON NORMALS: Soft to palpation and No hepatosplenomegaly present PALPATION: Yes Soft to palpation, No Tenderness to palpation present (GI), No Guarding due to palpation present (GI), No Rigid due to palpation, Yes No hepatosplenomegaly present, No Hernia present, No Palpable mass present and No Pulsatile mass present : COMMON NORMALS: Yes no CVA tenderness BLADDER/KIDNEY EXAM: Yes no CVA tenderness EXTERNAL FEMALE EXAM: No Hernia present Back/Pelvis: COMMON NORMALS: no CVA tenderness, thoracic and lumbar spine normal to inspection, no thoracic nor lumbar tenderness and thoraco-lumbar ROM normal Extremity: COMMON NORMALS: normal to inspection, full ROM, capillary refill normal, no joint enlargement, no clubbing, cyanosis or edema and no calf tenderness Neuro: COMMON NORMALS: patient oriented x3, CN's II-XII intact bilaterally, moves all extremities, no focal motor deficits and no sensory deficits noted SENSORIUM/ORIENTATION: Yes alert MENINGEAL SIGNS: Yes no meningeal signs SPEECH: speech normal Psych: COMMON NORMALS: mental status grossly normal, Normal thought process present, cooperative, normal affect, speech normal and activity/motor behavior normal SPEECH: Yes normal speech THOUGHT PROCESS: Normal thought process present Skin: COMMON NORMALS: no rashes or lesions noted, turgor normal, no jaundice, no petechiae and no mottling GENERAL SKIN EXAM: no rashes or lesions noted and turgor normal Course Vital Signs: Vital signs: Vital Signs Temperature 97.0 F L 03/21/20 01:02 Pulse Rate 112 H 03/21/20 05:15 Respiratory Rate 20 H 03/21/20 05:15 Blood Pressure 101/65 03/21/20 05:15 Pulse Oximetry 99 03/21/20 05:15 MDM - Chest Pain MDM Narrative: Medical decision making narrative: Ms. Denis's pain was relieved with accommodation of nitroglycerin and morphine. T waves remain inverted and are new finding from previous. Her tumor is stable according to the CT scan but it appears as though it is impinging on the pulmonary veins. Patient did have a short run of atrial flutter here that resolved spontaneously. Because of the undifferentiated pain and the arrhythmia believe she should be admitted for further work-up. I endorsed the case to Dr. Portillo that he is agreeable to admit the patient. Medical Records: Attestation: I reviewed the patient's medical records. Lab Data: Attestation: I reviewed the patient's lab results. Labs: Lab Results 03/21/20 03/21/20 03/21/20 Range/Units 01:20 01:20 01:20 WBC (4.0-10.0) 10^3/ uL RBC (4.1-5.3) 10^6/u L Hgb (11.5-15.3) g/dL Hct (37.0-47.0) % MCV (81-99) fL MCH (28.0-34.0) pg MCHC (30.0-36.0) g/dL RDW (12.1-15.1) % Plt Count (130-400) 10^3/c mm MPV (7.4-10.4) fL Neut % (Auto) % Lymph % (Auto) % [place] % (Auto) % Eos % (Auto) % Baso % (Auto) % Neut # (Auto) (1.8-7.7) 10^3/u L Lymph # (Auto) (0.8-4.8) 10^3/u L [place] # (Auto) (0.2-0.9) 10^3/u L Eos # (Auto) (0.0-0.8) 10^3/u L Baso # (Auto) (0.0-0.1) 10^3/u L Nucleated RBC % (a uto) % Nucleated RBCs # /100WBC PT 13.50 (12.1-14.9) SECO NDS INR 1.00 (0.8-1.2) D-Dimer 2.41 H (0-0.59) ug/mIFE U Sodium (136-145) mmol/L Potassium (3.5-5.1) mmol/L Chloride (98-107) mmol/L Carbon Dioxide (22-29) mmol/L Anion Gap (5-19) BUN (8-23) mg/dL Creatinine (0.5-0.9) mg/dL GFR Calculation (90-130) mL/min Glucose (65-115) mg/dL Calculated Osmolal ity (285-295) mOsm/k g Lactic Acid 1.2 (0.5-2.2) mmol/L Calcium (8.5-10.5) mg/dL Magnesium 1.7 (1.7-2.3) mg/dL Total Bilirubin (0.15-1.2) mg/dL AST (0-32) U/L ALT (0-33) U/L Alkaline Phosphata se (35-105) IU/L Troponin T Baselin e (0-10) ng/L Troponin T 120 Min [place] (0-10) ng/L Delta Troponin T (0-10) ABS# NT-Pro-B Natriuret Pep 3798 H (0-125) pg/mL Total Protein (6.6-8.7) g/dL Albumin (3.5-5.2) g/dL Globulin (1.3-4.6) g/dL Lipase 26 (13-60) U/L 03/21/20 03/21/20 03/21/20 Range/Units 01:20 01:20 01:20 WBC 8.4 (4.0-10.0) 10^3/ uL RBC 4.04 L (4.1-5.3) 10^6/u L Hgb 10.1 L (11.5-15.3) g/dL Hct 32.2 L (37.0-47.0) % MCV 79.7 L (81-99) fL MCH 25.0 L (28.0-34.0) pg MCHC 31.4 (30.0-36.0) g/dL RDW 17.0 H (12.1-15.1) % Plt Count 442 H (130-400) 10^3/c mm MPV 8.9 (7.4-10.4) fL Neut % (Auto) 87.9 % Lymph % (Auto) 4.2 % [place] % (Auto) 6.0 % Eos % (Auto) 0.5 % Baso % (Auto) 0.2 % Neut # (Auto) 7.38 (1.8-7.7) 10^3/u L Lymph # (Auto) 0.4 L (0.8-4.8) 10^3/u L [place] # (Auto) 0.5 (0.2-0.9) 10^3/u L Eos # (Auto) 0.0 (0.0-0.8) 10^3/u L Baso # (Auto) 0.0 (0.0-0.1) 10^3/u L Nucleated RBC % (a uto) 0 % Nucleated RBCs # 0.0 /100WBC PT (12.1-14.9) SECO NDS INR (0.8-1.2) D-Dimer (0-0.59) ug/mIFE U Sodium 126 L (136-145) mmol/L Potassium 5.5 H (3.5-5.1) mmol/L Chloride 89 L (98-107) mmol/L Carbon Dioxide 29 (22-29) mmol/L Anion Gap 13.5 (5-19) BUN 25 H (8-23) mg/dL Creatinine 0.6 (0.5-0.9) mg/dL GFR Calculation 100.0 (90-130) mL/min Glucose 91 (65-115) mg/dL Calculated Osmolal ity 266 L (285-295) mOsm/k g Lactic Acid (0.5-2.2) mmol/L Calcium 9.3 (8.5-10.5) mg/dL Magnesium (1.7-2.3) mg/dL Total Bilirubin 0.5 (0.15-1.2) mg/dL AST 18 (0-32) U/L ALT 28 (0-33) U/L Alkaline Phosphata se 155 H (35-105) IU/L Troponin T Baselin e 36 H (0-10) ng/L Troponin T 120 Min [place] (0-10) ng/L Delta Troponin T (0-10) ABS# NT-Pro-B Natriuret Pep (0-125) pg/mL Total Protein 6.3 L (6.6-8.7) g/dL Albumin 3.6 (3.5-5.2) g/dL Globulin 2.7 (1.3-4.6) g/dL Lipase (13-60) U/L 03/21/20 Range/Units 03:58 WBC (4.0-10.0) 10^3/ uL RBC (4.1-5.3) 10^6/u L Hgb (11.5-15.3) g/dL Hct (37.0-47.0) % MCV (81-99) fL MCH (28.0-34.0) pg MCHC (30.0-36.0) g/dL RDW (12.1-15.1) % Plt Count (130-400) 10^3/c mm MPV (7.4-10.4) fL Neut % (Auto) % Lymph % (Auto) % [place] % (Auto) % Eos % (Auto) % Baso % (Auto) % Neut # (Auto) (1.8-7.7) 10^3/u L Lymph # (Auto) (0.8-4.8) 10^3/u L [place] # (Auto) (0.2-0.9) 10^3/u L Eos # (Auto) (0.0-0.8) 10^3/u L Baso # (Auto) (0.0-0.1) 10^3/u L Nucleated RBC % (a uto) % Nucleated RBCs # /100WBC PT (12.1-14.9) SECO NDS INR (0.8-1.2) D-Dimer (0-0.59) ug/mIFE U Sodium (136-145) mmol/L Potassium (3.5-5.1) mmol/L Chloride (98-107) mmol/L Carbon Dioxide (22-29) mmol/L Anion Gap (5-19) BUN (8-23) mg/dL Creatinine (0.5-0.9) mg/dL GFR Calculation (90-130) mL/min Glucose (65-115) mg/dL Calculated Osmolal ity (285-295) mOsm/k g Lactic Acid (0.5-2.2) mmol/L Calcium (8.5-10.5) mg/dL Magnesium (1.7-2.3) mg/dL Total Bilirubin (0.15-1.2) mg/dL AST (0-32) U/L ALT (0-33) U/L Alkaline Phosphata se (35-105) IU/L Troponin T Baselin e (0-10) ng/L Troponin T 120 Min [place] 30.28 H (0-10) ng/L Delta Troponin T -5.72 L (0-10) ABS# NT-Pro-B Natriuret Pep (0-125) pg/mL Total Protein (6.6-8.7) g/dL Albumin (3.5-5.2) g/dL Globulin (1.3-4.6) g/dL Lipase (13-60) U/L Imaging Data^: CXR: Attestation: I personally reviewed and interpreted this imaging study as follows: My impression: Right-sided hilar mass. Possible obstructive pneumonia. No pneumothorax or other acute cardiopulmonary findings. CT Chest: Radiologist's impression: [address] [address] [address] Scan Report Signed Patient: Jacqui Denis #: [id number] : [facility][id number] Age/Sex: 65 / FADM Date: 03/21/20 Loc: [facility]/Bed: Attending Dr: Ordering Provider/Ordering MD: Deb Burton DO Date of Service: 03/21/20 Procedure(s): CT angio chest PE protcl [id number] Accession Number(s): [id number] Report Number: [id number] PROCEDURE INFORMATION: Exam: CT Angiography Chest With Contrast Exam date and time: 03/21/2020 1:45 AM Age: 65 years old Clinical indication: Cough and shortness of breath; Prior surgery; Surgery type: Gb; Patient HX: Cough, SOB, chest pain, and elevated d-dimer. On active radiation/chemotherapy treatment for lung cancer. ; Additional info: Chest pain, shortness of breath, positive d-dimer, TECHNIQUE: Imaging protocol: Computed tomographic angiography of the chest with intravenous contrast. 3D rendering (Not supervised by radiologist): MIP and/or 3D reconstructed images were created by the technologist. Radiation optimization: All CT scans at this facility use at least one of these dose optimization techniques: automated exposure control; mA and/or kV adjustment per patient size (includes targeted exams where dose is matched to clinical indication); or iterative reconstruction. Contrast material: OMNI 350; Contrast volume: 46 ml; Contrast route: INTRAVENOUS (IV); COMPARISON: CT angio chest PE protcl [id number] 03/13/2020 6:33 AM RADIATION DOSE METRICS: Total DLP (mGy-cm): 502.49 FINDINGS: Pulmonary arteries: Normal. No pulmonary emboli. Aorta: Unremarkable. No aortic aneurysm. No aortic dissection. Lungs: A right upper lobe hilar and suprahilar mass is again seen similar to that present on 03/13/2020. Soft tissue attenuation filling defects are seen within the distal superior vena cava as well as within the left atrium and left upper lobe pulmonary veins similar to that seen previously. There are hazy and reticular opacities again seen within the right upper lobe, findings could represent postobstructive pneumonia. This appears slightly improved compared with 03/13/2020. Pleural space: Stable small right pleural effusion is seen. Heart: Unremarkable. No cardiomegaly. No pericardial effusion. Lymph nodes: Unremarkable. No enlarged lymph nodes. Kidneys and ureters: There is a left renal mass partially imaged today exhibiting low attenuation centrally and surrounded by coarse peripheral calcifications. Bones/joints: Unremarkable. No acute fracture. Soft tissues: Unremarkable. CT/CT angio chest PE protcl [id number] IMPRESSION: 1. There is no evidence for pulmonary arterial emboli. There are filling defect seen within the left atrium on the right extending into the right upper lobe pulmonary veins compatible with pulmonary venous tumor thrombosis. This appearance is stable compared with 03/13/2020. 2. Large lobulated heterogeneous right upper lobe mass unchanged from 03/13/2020. 3. Reticular and hazy opacities in the right upper lobe may represent postobstructive pneumonia although this appears slightly improved compared with 03/13/2020. 4. Stable right pleural effusion 5. Partially imaged cystic left renal mass with coarse peripheral calcifications. COMMENTS: Consistent with the [place]'s Incidental Findings Committee white paper (J Am Luis Radiol 2018): Any incidental renal lesion less than 1 cm or classified as too small to characterize, or any incidental cystic renal lesion characterized as simple-appearing, is likely benign. No follow-up imaging is recommended for these lesions per consensus recommendations based on imaging criteria. Radiation Dose CTDIVOL = (mGy): DLP = 502.49 (mGy-cm) Dictated By:Michael Cassidy MD Signed By:Michael Cassidy MDSigned Date/Time:03/21/20413 DD/ 1 EKG Data^: EKG 1: Attestation: I personally reviewed and interpreted this EKG as follows: EKG interpretation date: 03/21/20 EKG interpretation time: 01:05 Interpretation: Sinus tachycardia 120 beats a minute, normal axis, no blocks, T wave inversions in 1, aVL, V2 through V6. T wave inversions are new since previous. EKG 2: Attestation: I personally reviewed and interpreted this EKG as follows: EKG interpretation date: 03/21/20 EKG interpretation time: 03:52 Interpretation: Sinus tachycardia at 113 beats a minute, normal axis, no blocks, T wave is inverted in 1, aVL, V2 through V6. Discharge Plan Discharge Patient Disposition: Admitted As Inpatient Clinical Impression: Chest pain Condition: Stable Prescriptions: No Action lisinopril-hydrochlorothiazide 20-12.5 mg tablet 1 tab PO DAILY RF: 0 clonazepam 0.5 mg tablet 0.5 mg PO TID PRN (Reason: anxiety) Qty: 90 RF: 2 sertraline [Zoloft] 100 mg tablet 150 mg PO DAILY Qty: 45 RF: 2 albuterol sulfate [ProAir HFA] 90 mcg/actuation HFA aerosol inhaler 2 puff INHALATION Q4H PRN (Reason: Shortness Of Breath) RF: 0 albuterol sulfate 2.5 mg /3 mL (0.083 %) solution for nebulization 2.5 mg INHALATION Q4H PRN (Reason: shortness of breath or wheezing) Qty: 90 RF: 0 [place] 5-325 mg tablet 1 tab PO Q6H PRN (Reason: pain) Qty: 14 RF: 0 prednisone 50 mg tablet 50 mg PO DAILY Qty: 5 RF: 0 Referrals: Jayna Schmitt MD [Primary Care Provider] - Coding Level of Care Code ED Professor Of Business Administration for Chg Fwd 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
[2020-03-21] MEDS: aspirin 325 mg Tablet PO (01:23)
--- NOTE | 2020-03-21 01:29 | XR_ITS ---
WS: [id number] XR chest 1V portable [id number] REASON FOR EXAM: Chest pain FINDINGS: Comparison examination 03/13/2020. Large right lung mass again noted. The right lung is better aerated at this time. There are diffuse i nterstitial changes throughout the right lower lung field. There appears to been partial resolution o f these infiltrative changes compared to the previous study. There is blunting of the right costophre paola angle indicating right pleural effusion. PICC line remains at the level of the left subclavian vein. XR/XR chest 1V portable [id number] IMPRESSION: Better aeration of the right lung as compared to the previous examination.
[2020-03-21] MEDS: nitroglycerin 0.4 mg sublingual Tablet SUBLINGUAL ×3 (01:30→02:47)
[2020-03-21 01:42] LABS: D Dimer 2.41 ug/mIFEU (0-0.59)
--- NOTE | 2020-03-21 01:43 | CTR_ITS ---
PROCEDURE INFORMATION: Exam: CT Angiography Chest With Contrast Exam date and time: 03/21/2020 1:45 AM Age: 65 years old Clinical indication: Cough and shortness of breath; Prior surgery; Surgery type: Gb; Patient HX: Cough, SOB, chest pain, and elevated d-dimer. On active radiation/chemotherapy treatment for lung cancer. ; Additional info: Chest pain, shortness of breath, positive d-dimer, TECHNIQUE: Imaging protocol: Computed tomographic angiography of the chest with intravenous contrast. 3D rendering (Not supervised by radiologist): MIP and/or 3D reconstructed images were created by the technologist. Radiation optimization: All CT scans at this facility use at least one of these dose optimization techniques: automated exposure control; mA and/or kV adjustment per patient size (includes targeted exams where dose is matched to clinical indication); or iterative reconstruction. Contrast material: OMNI 350; Contrast volume: 46 ml; Contrast route: INTRAVENOUS (IV); COMPARISON: CT angio chest PE protcl [id number] 03/13/2020 6:33 AM RADIATION DOSE METRICS: Total DLP (mGy-cm): 502.49 FINDINGS: Pulmonary arteries: Normal. No pulmonary emboli. Aorta: Unremarkable. No aortic aneurysm. No aortic dissection. Lungs: A right upper lobe hilar and suprahilar mass is again seen similar to that present on 03/13/2020. Soft tissue attenuation filling defects are seen within the distal superior vena cava as well as within the left atrium and left upper lobe pulmonary veins similar to that seen previously. There are hazy and reticular opacities again seen within the right upper lobe, findings could represent postobstructive pneumonia. This appears slightly improved compared with 03/13/2020. Pleural space: Stable small right pleural effusion is seen. Heart: Unremarkable. No cardiomegaly. No pericardial effusion. Lymph nodes: Unremarkable. No enlarged lymph nodes. Kidneys and ureters: There is a left renal mass partially imaged today exhibiting low attenuation centrally and surrounded by coarse peripheral calcifications. Bones/joints: Unremarkable. No acute fracture. Soft tissues: Unremarkable. CT/CT angio chest PE protcl [id number] IMPRESSION: 1. There is no evidence for pulmonary arterial emboli. There are filling defect seen within the left atrium on the right extending into the right upper lobe pulmonary veins compatible with pulmonary venous tumor thrombosis. This appearance is stable compared with 03/13/2020. 2. Large lobulated heterogeneous right upper lobe mass unchanged from 03/13/2020. 3. Reticular and hazy opacities in the right upper lobe may represent postobstructive pneumonia although this appears slightly improved compared with 03/13/2020. 4. Stable right pleural effusion 5. Partially imaged cystic left renal mass with coarse peripheral calcifications. COMMENTS: Consistent with the [employer]'s Incidental Findings Committee white paper (J Am Luis Radiol 2018): Any incidental renal lesion less than 1 cm or classified as too small to characterize, or any incidental cystic renal lesion characterized as simple-appearing, is likely benign. No follow-up imaging is recommended for these lesions per consensus recommendations based on imaging criteria. Radiation Dose CTDIVOL = (mGy): DLP = 502.49 (mGy-cm)
--- NOTE | 2020-03-21 01:45 | ECG_ITS ---
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 Measurements Intervals Joice Rate: 120 P: 71 TX: 134 QRS: 62 QRSD: 84 T: 104 QT: 276 QTc: 391 Interpretive Statements SINUS T[address] DEVIATION AND MODERATE T-WAVE ABNORMALITY, CONSIDER ANTEROLATERAL ISCHEMIA [-0.1+ mV T WAVE IN V3-V6] INTERPRETATION BASED ON A DEFAULT AGE OF 40 YEARS Compared to ECG 03/13/2020 07:58:11 T-wave abnormality now present Possible ischemia now present Ventricular premature complex(es) no longer present Right bundle-branch block no longer present Electronically Signed On 03-21-2020 20:47:31 ENGINEERING DEPARTMENT CHAIR by Brianne Godoy M.D. [id number] f
[2020-03-21 01:48] LABS: Lactic Sepsis W/Reflex 1.2 mmol/L (0.5-2.2)
[2020-03-21] MEDS: sodium chloride 0.9% 1,000 ML 999 ML IV (01:54)
--- NOTE | 2020-03-21 01:55 | PC.NURSE ---
Patient had slight chest pain improvement after first nitroglycerin tab. Pain went down to a 7 on a scale of 0-10.
--- NOTE | 2020-03-21 01:56 | PC.NURSE ---
Patient chronically on 4 liters of oxygen via nasal cannula.
[2020-03-21 02:02] LABS: Lipase 26 U/L (13-60); Magnesium 1.7 mg/dL (1.7-2.3); NT Pro B Type Natriuretic Pept 3798 pg/mL (0-125)
[2020-03-21 02:55] LABS: Basophils % 0.2 %; Eosinophils % 0.5 %; Hematocrit 32.2 % (37.0-47.0); Hemoglobin 10.1 g/dL (11.5-15.3); Lymphocytes # 0.4 10^3/uL (0.8-4.8); Lymphocytes % 4.2 %; Mean Corpuscular HGB Conc 31.4 g/dL (30.0-36.0); Mean Corpuscular Volume 79.7 fL (81-99); Mean Platelet Volume 8.9 fL (7.4-10.4); Monocytes # 0.5 10^3/uL (0.2-0.9); Neutrophils # 7.38 10^3/uL (1.8-7.7); Neutrophils % 87.9 %; Nucleated Red Blood Cells % 0 %; Platelet Count 442 10^3/cmm (130-400); Red Blood Count 4.04 10^6/uL (4.1-5.3); White Blood Count 8.4 10^3/uL (4.0-10.0)
[2020-03-21] MEDS: sodium chloride 0.9% 1,000 ML 100 ML IV (02:55)
--- NOTE | 2020-03-21 02:56 | PC.NURSE ---
Shoulder and neck pain after 3rd nitroglycerin is down to 6 on a scale of 0-10.
[2020-03-21 03:09] LABS: Alanine Aminotransferase 28 U/L (0-33); Albumin Level 3.6 g/dL (3.5-5.2); Alkaline Phosphatase 155 IU/L (35-105); Anion Gap 13.5 (5-19); Aspartate Amino Transferase 18 U/L (0-32); Blood Urea Nitrogen 25 mg/dL (8-23); Calcium 9.3 mg/dL (8.5-10.5); Carbon Dioxide 29 mmol/L (22-29); Chloride 89 mmol/L (98-107); Globulin 2.7 g/dL (1.3-4.6); Glucose 91 mg/dL (65-115); Osmolality Calculated 266 mOsm/kg (285-295); Potassium 5.5 mmol/L (3.5-5.1); Sodium 126 mmol/L (136-145); Total Bilirubin 0.5 mg/dL (0.15-1.2); Total Protein 6.3 g/dL (6.6-8.7)
[2020-03-21 03:11] LABS: Troponin(5th) Baseline 36 ng/L (0-10)
[2020-03-21] MEDS: ondansetron 2 mg/ML SDV 2 mL 4 MG IVP (03:11)
[2020-03-21] MEDS: morphine 4 mg/mL SDV 1 mL IVP (03:16)
[2020-03-21] MEDS: nitroglycerin 1 gm/inch oint Pkt 1 INCH TOPICAL (03:26)
--- NOTE | 2020-03-21 03:28 | PC.NURSE ---
Patient transported to radiology.
[2020-03-21] MEDS: iohexol 350 mg/mL 100 mL Btl IV (03:34)
--- NOTE | 2020-03-21 03:45 | ECG_ITS ---
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 Measurements Intervals [place] Rate: 113 P: 60 MO: 133 QRS: 56 QRSD: 83 T: 83 QT: 321 QTc: 441 Interpretive Statements SINUS TACHYCARDIA WITH OCCASIONAL SUPRAVENTRICULAR PREMATURE COMPLEXES POSSIBLE LEFT ATRIAL ENLARGEMENT [-0.1mV P WAVE IN V1/V2] SEPTAL MYOCARDIAL INFARCTION [40+ ms Q WAVE IN V1/V2], OF INDETERMINATE AGE MODERATE T-WAVE ABNORMALITY, CONSIDER ANTEROLATERAL ISCHEMIA [-0.1+ mV T WAVE IN V3-V6] Compared to ECG 03/21/2020 01:05:39 Myocardial infarct finding now present T-wave abnormality still present Possible ischemia still present Electronically Signed On 03-21-2020 20:56:24 HARDBOARD PANEL PRINTER by Brianne Godoy M.D. [email or web address].[email or web address]/store/[id number]
--- NOTE | 2020-03-21 04:02 | PC.NURSE ---
Patient back from radiology at 0350.
[2020-03-21 04:38] LABS: Troponin 5 2HR 30.28 ng/L (0-10)
--- NOTE | 2020-03-21 04:46 | P.HP_ITS ---
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 Patient is stating that her symptoms started around 1 PM which she is describing as left-sided chest pain, she described chest pain as pressure-like sensation like someone sitting on her chest, this pain was radiating towards her shoulders bilaterally going towards her back and radiating up to her neck, she felt nauseous but did not experience any emesis. No fever or worsening of shortness of breath, she is denying diarrhea, dysuria, syncopal event, orthopnea or PND. 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, postobstructive pneumonia resolution, hyperkalemia, baseline tropo see 36, 2-hour troponin 30 - delta troponin, BNP 3800, EKG showing T wave inversion V3 to V6 Review of Systems Const: Reports: chills, body aches and fatigue; Denies: fever(s) Eyes: Denies: change in vision ENMT: Denies: throat pain Card: Reports: chest pain and dyspnea on exertion; Denies: swelling of feet/ankles, syncope, pre-syncope or orthopnea Resp: Reports: dyspnea GI: Denies: abdominal pain : Denies: flank pain Musc: Denies: neck pain Skin/Breast: Reports: lesions Neuro: Denies: headache(s) Psych: Denies: anxiety Endo: Denies: polyuria Delfin/Lymph: Denies: easy bruising All/Imm: Denies: urticaria Medications/Allergies Home Medications Medication Instructions Recorded Confirmed Last Taken Type lisinopril 20 1 tab PO DAILY 05/23/19 03/04/20 03/04/20 05:30 History mg-hydrochlorothiazide 12.5 mg tablet albuterol sulfate [ProAir HFA] 2 puff INHALATION Q4H PRN 02/07/20 03/04/20 03/03/20 History clonazepam 0.5 mg tablet 0.5 mg PO TID PRN #90 tab 02/18/20 03/04/20 03/03/20 Rx sertraline 100 mg tablet 150 mg PO DAILY #45 tab 02/18/20 03/04/20 03/04/20 05:30 Rx albuterol sulfate 2.5 mg INHALATION Q4H PRN #90 ml 03/13/20 Unknown Rx hydrocodone-acetaminophen [Louann] 1 tab PO Q6H PRN #14 tab 03/13/20 Unknown Rx prednisone 50 mg PO DAILY #5 tab 03/13/20 Unknown Rx Allergies Allergy/AdvReac Type Severity Reaction Status Date / Time No Known Allergies Allergy Verified 03/21/20 06:21 PFSH Acute PFSH: Medical History Lung cancer Lung mass Osteoarthritis of left knee Panic disorder [episodic paroxysmal anxiety] Port-A-Cath in place 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 Surgical History S/P bronchoscopy Social History Smoking and tobacco status: current every day smoker cigarettes Packs smoked per day: 1 Years cigarettes smoked: 44 Quit status (tobacco): considering quitting Smoking risk assessment/counseling performed?: Yes Tobacco counseling given: counseling >3 minutes Alcohol intake: current Alcohol intake frequency: few times a month Alcohol type: beer Lives independently: Yes Household members: none Marital status: Current occupational status: retired History of recent travel: No Current gender identity: Female Vitals/I&O/Wt Last Vital Signs Temp 97.0 F L 03/21/20 01:02 Pulse 156 H 03/21/20 04:30 Resp 14 03/21/20 04:30 BP 94/67 03/21/20 04:30 Pulse Ox 98 03/21/20 04:30 03/20/20 03/20/20 03/21/20 14:59 22:59 06:59 Intake Total 1000 / 1000 Balance 1000 / 1000 Weight last 48 hrs Weight 58.967 kg Physical Exam Narrative: EXAM NARRATIVE: Very pleasant middle-aged female Currently saturating well on 2 L nasal cannula No active chest pain or respiratory distress Clinically looks euvolemic Appears more than stated age S1, S2 sinus tachycardia Hemodynamically stable Chest pain is not reproducible No acute respiratory distress no adventitious rhonchi or crackles noted Abdomen soft nontender bowel sound present Lower extremity no edema gangrene ulcer EOMI, PERRLA GCS 15, awake alert oriented x3, no neurological deficit Skin without any ischemic changes or gangrene Data : 03/21/20 01:20 03/21/20 01:20 A&P Assessment and plan (1) Unstable angina: Status: Acute (2) NSTEMI (non-ST elevated myocardial infarction): Status: Acute (3) Hyperkalemia: Status: Acute (4) Hyponatremia: Status: Inactive Additional A&P Information Unstable angina/NSTEMI T wave inversion V3 to V6, first troponin 36, negative delta troponin clinically does not look fluid overloaded, no active chest pain CTA chest rule out PE however it is showing extension of thrombus into pulmonary vein which I think is embolization from superior vena, previous thrombosis I would start her on ACS protocol, loaded with aspirin, Plavix, high-dose statins, will request echo to see any wall motion abnormality Hyponatremia She has chronic hyponatremia most likely secondary to lung cancer No significant neurological signs or symptoms Closely monitor for now Hyperkalemia I will discontinue her lisinopril for now No TERESA noted We will give her 1 dose of Kayexalate Macrocytic anemia globin 10.1 which seems to be stable no acute decompensation Full code Cardiac diet DVT prophylaxis not needed as she is on therapeutic dose of Lovenox Attestations Medical Necessity Statement*: Anticipating stay in the hospital across more than 2 midnights continue management for NSTEMI Time Spent in Patient Care: (>than 50% of time spent in counselling and/or direct pt care on unit) . 50mins Coding Level of Care Code Acute Needle Loom Operator Helper for Barbara Cruz Diagnoses Unstable angina I20.0 NSTEMI (non-ST elevated myocardial infarction) I21.4 Hyperkalemia E87.5 Hyponatremia E87.1
--- NOTE | 2020-03-21 05:38 | PC.NURSE ---
Patient converted out of atrial flutter, doctor notified. IVP not given.
--- NOTE | 2020-03-21 05:39 | USCV_ITS ---
AdeelIram Age: 65 Gender: F : 1955 Exam Date: 03/21/2020 06:46 Ordering Phys: Akosua Portillo MD Technologist: Comfort Hayes Exam Location: [facility] [place] Indication: nstemi BP: 119 / 72 HR: 108 Rhythm: Sinus Technical Quality: Suboptimal MEASUREMENTS (Male / Female) Normal Values 2D ECHO LV Diastolic Diameter PLAX 4.1 cm 4.2 - 5.9 / 3.9 - 5.3 cm LV Systolic Diameter PLAX 3.5 cm LV Chamber Size 2.9 cm IVS Diastolic Thickness 1.6 cm 0.6 - 1.0 / 0.6 - 0.9 cm IVS Systolic Thickness 1.8 cm LVPW Diastolic Thickness 2.0 cm 0.6 - 1.0 / 0.6 - 0.9 cm LVPW Systolic Thickness 1.8 cm RV Chamber Size 2.9 cm LVOT Diameter 2.0 cm LV Ejection Fraction 2D Teich 29.1 % LV Ejection Fraction MOD 2C 64.2 % LV Ejection Fraction 2C AL 66.2 % LA Diameter 2.6 cm LA Width 3.3 cm LA Height 4.1 cm RA Width 2.3 cm RA Height 4.0 cm Aorta at Sinotubular Diameter 2.9 cm M-MODE LV Diastolic Diameter MM 3.0 cm 4.2 - 5.9 / 3.9 - 5.3 cm LV Systolic Diameter MM 2.6 cm LV Ejection Fraction MM Teich 29.6 % IVS Diastolic Thickness MM 0.4 cm 0.6 - 1.0 / 0.6 - 0.9 cm IVS Systolic Thickness MM 1.2 cm LVPW Diastolic Thickness MM 3.8 cm 0.6 - 1.0 / 0.6 - 0.9 cm LVPW Systolic Thickness MM 2.2 cm Aortic Annulus Diameter 3.6 cm LA Ao Ratio MM 0.5 MV E Point Septal Separation 1.7 cm DOPPLER AV Peak Velocity 109.0 cm/s LVOT Peak Velocity 97.0 cm/s AV Area Cont Eq vti 3.1 cm squared AV Area Cont Eq pk 2.9 cm squared MV Area PHT 3.7 cm squared Mitral E to A Ratio 3.0 MV E' Velocity 57.0 cm/s Mitral E to MV E' Ratio 8.2 Mitral E to LV E' Lateral Ratio 9.7 Mitral E to LV E' Septal Ratio 7.2 TR Peak Velocity 172.0 cm/s TR Peak Gradient 11.8 mmHg TV Peak E Velocity 69.0 cm/s Right Atrial Pressure 3.0 mmHg Pulmonary Artery Systolic Pressu 14.8 mmHg PV Peak Velocity 72.0 cm/s RV Acceleration Time 0.1 s RV Ejection Time 0.2 s RV AcT/ET 0.6 FINDINGS Left Ventricle Normal left ventricular cavity size. Normal left ventricular systolic function. Left ventricular ejection fraction is estimated at 55 %. In the presence of tachycardia diastolic function cannot be assessed accurately. Right Ventricle The right ventricle is normal in size and function. Right Atrium The right atrium is normal in size. Left Atrium The left atrium is normal in size. Mitral Valve Moderately thickened mitral valve. Mild mitral annular calcification. No mitral valve stenosis. Trace mitral valve regurgitation. Aortic Valve Moderate aortic valve calcification. No aortic valve stenosis. No aortic valve regurgitation. Tricuspid Valve Structurally normal tricuspid valve without significant stenosis or regurgitation. Pulmonary artery systolic pressure is normal. Pulmonic Valve Structurally normal pulmonic valve without significant stenosis. There is no pulmonic regurgitation. Pericardium Normal pericardium without effusion. Aorta Normal ascending aorta dimension. CONCLUSIONS 1-Normal left ventricular cavity size. Normal left ventricular systolic function. Left ventricular ejection fraction is estimated at 55 %. In the presence of tachycardia diastolic function cannot be assessed accurately. 2-There is no pericardial effusion. 3-No significant valve abnormalities. 4-Pulmonary artery systolic pressure is within normal limits. 5-Right atrial pressure is around 2 mm of mercury. Akosua Meade MD (Electronically Signed) Final Date: 21 March 2020 19:56 S
--- NOTE | 2020-03-21 06:10 | PC.NURSE ---
Unable to stop infusion of NS @100 ml that was discontinued. It states medication has not been acknowledged. There is no place to acknowledge it.
--- NOTE | 2020-03-21 06:21 | PC.NURSE ---
Patient arrived to the floor from the ED after report was received via phone. Patient is alert and oriented. Patient has been oriented to her room and has call light within reach. Patient says I have a large list of medications but I don't have it with me and I can't remember them. Unable to verify med rec at this time.
[2020-03-21] MEDS: enoxaparin 60 mg/0.6 mL Syringe SUBCUT ×2 (06:28→18:18)
[2020-03-21] MEDS: sodium chloride 0.9% 1,000 ML 75 ML IV ×2 (06:30→23:01)
[2020-03-21] MEDS: clopidogrel 300 mg Tablet PO (06:30)
--- NOTE | 2020-03-21 07:45 | ECG_ITS ---
[facility] Test Date: 2020-03-21 Pat Name: Iram Denis Department: Room: 101 Gender: Female Clerical Grader: : 1955 Requested By: Deb Tay Order Number: [id number] Titus MD: Brianne Godoy M.D. Measurements Intervals [place] Rate: 167 P: DE: QRS: 62 QRSD: 82 T: 101 QT: 256 QTc: 427 Interpretive Statements ATRIAL FLUTTER/fibrillation WITH RAPID VENTRICULAR RESPONSE SEPTAL MYOCARDIAL INFARCTION [40+ ms Q WAVE IN V1/V2], OF INDETERMINATE AGE MODERATE T-WAVE ABNORMALITY, CONSIDER ANTEROLATERAL ISCHEMIA [-0.1+ mV T WAVE IN V3-V6] WARNING: DATA QUALITY MAY AFFECT INTERPRETATION INTERPRETATION BASED ON A DEFAULT AGE OF 40 YEARS Compared to ECG 03/21/2020 03:52:29 Sinus tachycardia no longer present Myocardial infarct finding still present T-wave abnormality still present Possible ischemia still present Electronically Signed On 03-21-2020 20:57:12 BYPRODUCTS SUPERVISOR by Brianne Godoy M.D. [id number] f
[2020-03-21 07:55] LABS: Uric Acid 3.3 mg/dL (2.4-5.7)
[2020-03-21] MEDS: sodium polystyrene sulfonate 15 gm/60 mL Btl PO (08:23)
[2020-03-21] MEDS: hydroCHLOROthiazide 25 mg Tablet 12.5 MG PO (09:09)
[2020-03-21] MEDS: atorvastatin 40 mg Tablet 80 MG PO (09:09)
[2020-03-21] MEDS: sertraline 100 mg Tablet 150 MG PO (09:09)
[2020-03-21] MEDS: metoprolol succinate ER (24 HR) 25 mg Tablet PO (09:09)
[2020-03-21] MEDS: aspirin 81 mg EC Tablet PO (09:09)
--- NOTE | 2020-03-21 09:30 | PC.NURSE ---
patient heart rate noted to be in the 180's. EKG was ordered, patient noted to be in a fib RVR. dr Grissom called and notified of heart rate and other vital signs. Verbal order for IVP cardizem. When IVP complete dr notified of vitals. heart rate 130-140. order to start cardizem drip. cardizem drip was started at 5ml/hr with a heart rate of 180's after 5 minutes, cardizem was titirated to 10 ml/hr. after another 5 minutes, heart rate still in 180's, cardizem titrated to 15ml/hr. and dr notified of vitals.
[2020-03-21] MEDS: metoprolol tartrate 1 mg/1 mL SDV 5 mL 5 MG IVP (09:48)
--- NOTE | 2020-03-21 09:57 | ECG_ITS ---
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 Measurements Intervals [place] Rate: 96 P: ND: QRS: 70 QRSD: 90 T: 120 QT: 346 QTc: 439 Interpretive Statements Atrial fibrillation WITH ABERRANT CONDUCTION OR VENTRICULAR PREMATURE COMPLEXES ST DEVIATION AND MARKED T-WAVE ABNORMALITY, CONSIDER ANTEROLATERAL ISCHEMIA [-0.5+ mV T WAVE IN I/aVL/V3-V6] Compared to ECG 03/21/2020 04:31:38 Ventricular premature complex(es) now present Aberrant conduction of supraventricular beat(s) now present Myocardial infarct finding no longer present T-wave abnormality still present Possible ischemia still present Electronically Signed On 03-21-2020 20:50:45 PLASTER BLOCK LAYER by Brianne Godoy M.D. [email or web address]/[id number]
--- NOTE | 2020-03-21 10:00 | ECG_ITS ---
[facility] Test Date: 2020-03-21 Pat Name: Iram Denis Department: Room: 101 Gender: Female Cutter Brake Lining: : 1955 Requested By: Dary Grissom Order Number: [id number] Titus MD: Brianne Godoy M.D. Measurements Intervals [place] Rate: 97 P: 72 MA: 138 QRS: 77 QRSD: 93 T: 145 QT: 348 QTc: 444 Interpretive Statements SINUS RHYTHM POSSIBLE LEFT ATRIAL ENLARGEMENT [-0.1mV P WAVE IN V1/V2] ST DEVIATION AND MARKED T-WAVE ABNORMALITY, CONSIDER ANTEROLATERAL ISCHEMIA [-0.5+ mV T WAVE IN I/aVL/V3-V6] Compared to ECG 03/21/2020 10:02:28 Atrial flutter no longer present Ventricular premature complex(es) no longer present Aberrant conduction of supraventricular beat(s) no longer present T-wave abnormality still present Possible ischemia still present Electronically Signed On 03-21-2020 20:50:52 TOXICOLOGIST by Brianne Godoy M.D. [email or web address].[employer]/store/[id number]
--- NOTE | 2020-03-21 10:28 | ECG_ITS ---
[facility] Test Date: 2020-03-21 Pat Name: Iram Denis Department: Room: 101 Gender: Female Scientific Software Engineer: : 1955 Requested By: Dary Grissom Order Number: [id number] Titus MD: Brianne Godoy M.D. Measurements Intervals [place] Rate: 157 P: DC: QRS: 73 QRSD: 94 T: 180 QT: 255 QTc: 412 Interpretive Statements ATRIAL FIBRILLATION WITH RAPID VENTRICULAR RESPONSE MODERATE T-WAVE ABNORMALITY, CONSIDER ANTEROLATERAL ISCHEMIA [-0.1+ mV T WAVE IN V3-V6] MODERATE T-WAVE ABNORMALITY, CONSIDER INFERIOR ISCHEMIA [-0.1+ mV T WAVE IN II/aVF] WARNING: DATA QUALITY MAY AFFECT INTERPRETATION Compared to ECG 03/21/2020 04:31:38 Atrial flutter no longer present Myocardial infarct finding no longer present T-wave abnormality still present Possible ischemia still present Electronically Signed On 03-21-2020 20:50:05 ROLLING DOWN MACHINE OPERATOR by Brianne Godoy M.D. [id number] f
--- NOTE | 2020-03-21 10:33 | PC.RESP ---
Smoking Cessation and Pulmonary Rehab packet sent to patient.
[2020-03-21] MEDS: sodium chloride 0.9% 500 ML 999 ML IV (10:47)
[2020-03-21] MEDS: ALPRAZolam 0.25 mg Tablet PO (11:18)
--- NOTE | 2020-03-21 11:48 | PC.CHAP ---
Pastoral Care Encounter/Spiritual Assessment Type of Contact [] Declined fertilizer applicator visit [] Patient/Family/Request visit [] Outpatient visit [] Follow-up visit [] Physician referral [] Code/Alert [] Routine visit [] Staff referral [] Actively dying [] Patient sleeping [] Family support [] [] Out of room [] Palliative care [] [] Receiving care in room [] Pre-surgical visit [] Trauma [] Long length of stay [] ICU visit [xx] Other: follow up needed Relational/Emotional Strength [] Patient feels connected with others/family/visitors/staff [] Distress [] Loneliness/isolation [] Abandonment Spirituality of Patient [] Person of Radha [] Attends Pentecostal of their Radha [] Believes in Prayer [] Reads Bible or Zoroastrian materials [] There are Spiritual issues to be addressed Cemetery Worker Interventions [] Prayer [] Active listening [] Non-anxious presence [] Spiritual/emotional support [] Crisis/trauma care [] Spiritual counseling [] Bereavement support [] Provided bereavement packet [] Provided Bible/devotional materials [] Provided toy/stuffed animal, coloring book to patient or family member [] Provided Communion [] Anointing/[place] [] Salvation [] Completed spiritual assessment [] Other: Impact on Illness or Injury [] Angry [] Fearful [] Anxious [] Often cries [] Exhaustion [] Unable to work [] Unable to attend sabianist [] Unable to walk/stand [] Unable to read [] Unable to drive [] Unable to eat/drink [] Unable to sleep [] Unable to be with family [] Patient intubated [] Other: Summary Medical staff was preparing patient for battery of tests. Follow up needed Time spent with patient 1
--- NOTE | 2020-03-21 12:26 | P.PN_ITS ---
Subjective Subjective: Interval history: Patient was seen and examined earlier this morning at around 9 AM. She developed a flutter this morning with heart rate going up to 180s. She got 10 mg IV push of Cardizem which dropped her blood pressure to 70 systolic, received 500 IV bolus at that time. She had a nitro patch placed in the ER which was taken off. After receiving the Cardizem she co nverted to sinus rhythm at about 80 to 90 bpm, however then again heart rate went up to 170, after which she was given 5 2.5 mg of IV metoprolol. She did convert into sinus rhythm between rate of 9200 since then. Blood pressure is much improved now with systolic of 100-1 10. Medications: Reviewed: Yes Vitals/I&O/Wt Last Vital Signs Temp 97.9 F 03/21/20 11:20 Pulse 99 03/21/20 11:20 Resp 22 H 03/21/20 11:20 BP 109/60 03/21/20 11:20 Pulse Ox 97 03/21/20 11:20 03/20/20 03/21/20 03/21/20 22:59 06:59 14:59 Intake Total 1000 / 1000 241.5 / 241.5 Output Total 200 / 200 Balance 1000 / 1000 41.5 / 41.5 Weight last 48 hrs Weight 58.967 kg Physical Exam Narrative: EXAM NARRATIVE: GEN: Awake, alert and oriented, extremely anxious, laying in bed CVS: S1S2 N RS: CTA B/L Abd: Soft, nt/nd , bs+ MEDICAL LAB TECH INSTRUCTOR: no focal neuro deficits Data : 03/21/20 01:20 03/21/20 01:20 A&P Assessment and plan (1) Atrial flutter with rapid ventricular response: Patient this morning developed atrial flutter with rapid ventricular response. She had been on Cardizem at 15 mg/h, however heart rate was as high as 180 at the time. She did get Cardizem push of 10 mg and then metoprolol 2.5 IV which has now controlled her heart rate between 90-100, converted to sinus rhythm also however goes back and forth between sinus rhythm and atrial flutter. Her blood pressure dropped down to 70 systolic after being given bolus of these medications, given 500 cc bolus at the time as well which has improved her systolic blood pressure between 100-1 20. For the most part she remains in sinus rhythm, however does have intermittent a flutter with heart rate as high as 130s to 140s. We will obtain cardiology consult to assist with management. Troponin series is without any significant delta's. Most likely atrial flutter is due to extensive SVC and pulmonary vein thrombosis from known malignancy. She is currently on Lovenox 1 mg/kg every 12 hours for the same. I am unable to find any anticoagulants on her home medication list and uncertain if she was on anything since outpatient. These findings are also noted on a CT from 03 13 and seems to be stable since then. Status: Acute (2) Adenocarcinoma, lung: Patient is currently on chemoradiation with carboplatin/paclitaxel started on March 13. Patient's daughter today stated that with her first chemotherapy regimen, patient had developed tachycardia as well which necessitated stopping the chemotherapy jail. She received another round of chemotherapy 2 days ago, she does not know if the agents were changed this time. We will attempt to verify this with oncology. Patient had a radiation treatment scheduled for this morning which has now been canceled due to her a flutter Status: Acute (3) Superior vena cava thrombosis: Currently on Lovenox 1 mg/kg every 12 hours. Status: Acute (4) Hyperkalemia: This was noted on labs from 1 AM. Repeat potassium and magnesium level Status: Acute Attestations Medical Necessity Statement*: Atrial flutter with rapid ventricular response, extensive SVC thrombosis. Coding Level of Care Code Acute Signal Operator Technical for Barbara Cruz Diagnoses Atrial flutter with rapid ventricular response I48.92 Adenocarcinoma, lung C34.90 Superior vena cava thrombosis I82.210 Hyperkalemia E87.5
--- NOTE | 2020-03-21 13:32 | USCV_ITS ---
Iram Denis Age: 65 Gender: F : 1955 Exam Date: 03/21/2020 13:59 Ordering Phys: Akosua Meade MD ([email or web address]) Technologist: Kaden Garay Exam Location: [facility] [place] Indication: CHEST PAIN BP: 101 / 57 HR: 99 Rhythm: Sinus Technical Quality: Fair MEASUREMENTS (Male / Female) Normal Values 2D ECHO LV Diastolic Diameter PLAX 4.5 cm 4.2 - 5.9 / 3.9 - 5.3 cm LV Systolic Diameter PLAX 3.0 cm IVS Diastolic Thickness 1.3 cm 0.6 - 1.0 / 0.6 - 0.9 cm IVS Systolic Thickness 1.9 cm LVPW Diastolic Thickness 1.1 cm 0.6 - 1.0 / 0.6 - 0.9 cm LVPW Systolic Thickness 1.1 cm LVOT Diameter 2.0 cm LV Ejection Fraction 2D Teich 61.7 % LV Ejection Fraction MOD 2C 50.9 % LV Ejection Fraction 2C AL 49.6 % LA Diameter 4.3 cm LA Width 3.6 cm LA Height 5.2 cm RA Width 2.9 cm RA Height 4.8 cm Aorta at Sinotubular Diameter 3.2 cm M-MODE LV Diastolic Diameter MM 4.8 cm 4.2 - 5.9 / 3.9 - 5.3 cm LV Systolic Diameter MM 3.0 cm LV Ejection Fraction MM Teich 67.8 % IVS Diastolic Thickness MM 1.3 cm 0.6 - 1.0 / 0.6 - 0.9 cm IVS Systolic Thickness MM 2.0 cm LVPW Diastolic Thickness MM 1.0 cm 0.6 - 1.0 / 0.6 - 0.9 cm LVPW Systolic Thickness MM 2.0 cm RV Diastolic Diameter MM 1.3 cm Aortic Annulus Diameter 4.4 cm LA Ao Ratio MM 1.0 MV E Point Septal Separation 0.8 cm DOPPLER AV Peak Velocity 130.0 cm/s LVOT Peak Velocity 94.0 cm/s AV Area Cont Eq vti 2.8 cm squared AV Area Cont Eq pk 2.3 cm squared MV Area PHT 5.0 cm squared Mitral E to A Ratio 0.9 MV E' Velocity 48.0 cm/s Mitral E to MV E' Ratio 7.6 Mitral E to LV E' Lateral Ratio 8.9 Mitral E to LV E' Septal Ratio 6.7 TR Peak Velocity 162.0 cm/s TR Peak Gradient 10.5 mmHg TV Peak E Velocity 111.0 cm/s Right Atrial Pressure 3.0 mmHg Pulmonary Artery Systolic Pressu 13.5 mmHg FINDINGS Left Ventricle Normal left ventricular cavity size. No regional wall motion abnormalities. Left ventricular ejection fraction is estimated at 55 %. Grade I/IV diastolic dysfunction (abnormal relaxation filling pattern), normal to mildly elevated filling pressures. Right Ventricle The right ventricle is normal in size and function. Right Atrium The right atrium is normal in size. Left Atrium The left atrium is normal in size. Mitral Valve Moderately thickened mitral valve. Mild mitral annular calcification. No mitral valve stenosis. Trace mitral valve regurgitation. Aortic Valve Aortic valve sclerosis without stenosis or regurgitation. Tricuspid Valve Structurally normal tricuspid valve without significant stenosis or regurgitation. Pulmonary artery systolic pressure is normal. Pulmonic Valve Structurally normal pulmonic valve without significant stenosis. There is no pulmonic regurgitation. Pericardium Normal pericardium without effusion. Aorta Normal ascending aorta dimension. CONCLUSIONS 1-Normal left ventricular cavity size. No regional wall motion abnormalities. Left ventricular ejection fraction is estimated at 55 %. Grade I/IV diastolic dysfunction (abnormal relaxation filling pattern), normal to mildly elevated filling pressures. 2-No significant valve abnormalities. 3-There is no pericardial effusion. 4-Pulmonary artery systolic pressure is within normal limits. 5-Right atrial pressure is around 5 mm of mercury. 6-No significant change since the prior echocardiogram study of 03/21/2020 Akosua Meade MD (Electronically Signed) Final Date: 21 March 2020 20:19 S
[2020-03-21 14:10] LABS: Alanine Aminotransferase 30 U/L (0-33); Albumin Level 3.2 g/dL (3.5-5.2); Alkaline Phosphatase 132 IU/L (35-105); Anion Gap 15.7 (5-19); Aspartate Amino Transferase 23 U/L (0-32); Blood Urea Nitrogen 20 mg/dL (8-23); Calcium 8.8 mg/dL (8.5-10.5); Carbon Dioxide 25 mmol/L (22-29); Chloride 90 mmol/L (98-107); Globulin 2.6 g/dL (1.3-4.6); Glucose 94 mg/dL (65-115); Magnesium 1.5 mg/dL (1.7-2.3); Osmolality Calculated 264 mOsm/kg (285-295); Potassium 4.7 mmol/L (3.5-5.1); Sodium 126 mmol/L (136-145); Total Bilirubin 0.5 mg/dL (0.15-1.2); Total Protein 5.8 g/dL (6.6-8.7)
[2020-03-21] MEDS: ipratropium-albuterol 3 mL Neb INHALATION (14:34)
[2020-03-21] MEDS: dilTIAZem ER (12HR) 60 mg Capsule PO (17:30)
--- NOTE | 2020-03-21 17:49 | P.CONIM_ITS ---
Providers/Reason For Consult Consulting Physican/Specialty*: Cardiology Reason for Consult*: Atrial flutter, hypotension Attending Physician: Dary Grissom MD Primary Care Provider: Jayna Schmitt MD History of Present Illness History of Present Illness Iram Denis is a 65 year old female past medical history significant for metastatic adenocarcinoma of the lung, chronic superior vena cava thrombus and new pulmonary vein thrombus by CTA admitted couple of days ago with chest pain shortness of breath and new onset of atrial flutter with rapid ventricular response. Patient was started on IV fluid after dropping blood pressure in response to leatha blockers. She responded well to the fluid and converted into sinus rhythm on Cardizem drip with metoprolol however blood pressure remains in 90s to 100. I have been asked to assist in her care. When I examined the patient she denies chest pain she was very lethargic fatigue and would like to sleep. On telemetry she continues to be in sinus rhythm with systolic blood pressure in high 90s and heart rate in between 90-110. Review of Systems Const: Reports: chills, body aches and fatigue; Denies: fever(s), malaise or diaphoresis Eyes: Denies: change in vision, blurry vision, photophobia, eye discomfort, eye discharge, eye redness or yellow eyes ENMT: Denies: throat pain, odynophagia, hoarseness, swelling of lips/tongue, ear or mastoid pain, ear discharge, change in hearing or nasal discharge Card: Reports: chest pain, palpitations and dyspnea on exertion; Denies: irregular heart rhythm, edema, swelling of feet/ankles, lightheadedness, syncope, pre-syncope or orthopnea Resp: Reports: dyspnea; Denies: productive cough, non-productive cough, wheezing, hemoptysis or chest congestion GI: Denies: abdominal pain, vomiting, hematemesis, coffee ground emesis, h eartburn, diarrhea, constipation, GI cramping, hematochezia or melena : Denies: flank pain, dysuria, urinary frequency, urinary urgency or harman turia Musc: Denies: neck pain, back pain, extremity pain, extremity swelling, joint pain, joint swelling, joint redness, joint warmth or joint stiffness Skin/Breast: Reports: lesions; Denies: rash, pruritus, erythema, skin pain or skin tenderness Neuro: Denies: headache(s), numbness in extremities, weakness in extremities, sensory changes, lack of coordination, difficulty walking, dizziness, vertigo, confusion, Slurred speech present or seizure-like activity Psych: Denies: anxiety Endo: Denies: polyuria Harman/Lymph: Denies: easy bruising, easy bleeding, petechiae, purpura or enlarged lymph nodes All/Imm: Denies: urticaria, throat swelling, tongue swelling, facial swelling or acute wheezing Meds/Allergies Home Medications and Allergies Home Medications Medication Instructions Recorded Confirmed Last Taken Type lisinopril 20 1 tab PO DAILY 05/23/19 03/04/20 03/04/20 05:30 History mg-hydrochlorothiazide 12.5 mg tablet albuterol sulfate [ProAir HFA] 2 puff INHALATION Q4H PRN 02/07/20 03/04/20 03/03/20 History clonazepam 0.5 mg tablet 0.5 mg PO TID PRN #90 tab 02/18/20 03/04/20 03/03/20 Rx sertraline 100 mg tablet 150 mg PO DAILY #45 tab 02/18/20 03/04/20 03/04/20 05:30 Rx albuterol sulfate 2.5 mg INHALATION Q4H PRN #90 ml 03/13/20 Unknown Rx hydrocodone-acetaminophen [[place]] 1 tab PO Q6H PRN #14 tab 03/13/20 Unknown Rx prednisone 50 mg PO DAILY #5 tab 03/13/20 Unknown Rx Allergies Allergy/AdvReac Type Severity Reaction Status Date / Time No Known Allergies Allergy Verified 03/21/20 06:21 Current Medications Current Medications Generic Name Dose Route Start Last Admin Trade Name Freq PRN Reason Stop Dose Admin Albuterol/Ipratropium 3 ml 03/21/20 11:18 03/21/20 14:34 Ipratropium-Albuterol 3 Ml Neb INHALATION 3 ml Q6H PRN Administration SHORTNESS OF BREATH Alprazolam 0.25 mg 03/21/20 10:57 03/21/20 11:18 Alprazolam 0.25 Mg Tablet PO 0.25 mg TID PRN Administration ANXIETY Aspirin 81 mg 03/21/20 09:00 03/21/20 09:09 Aspirin 81 Mg Ec Tablet PO 81 mg DAILY ANA MARÍA Administration Atorvastatin Calcium 80 mg 03/21/20 09:00 03/21/20 09:09 Atorvastatin 40 Mg Tablet PO 80 mg DAILY ANA MARÍA Administration Diltiazem HCl 60 mg 03/21/20 13:45 03/21/20 17:30 Diltiazem Er (12hr) 60 Mg Capsule PO 60 mg BID ANA MARÍA Administration Enoxaparin Sodium 60 mg 03/21/20 07:00 03/21/20 06:28 Enoxaparin 60 Mg/0.6 Ml Syringe SUBCUT 60 mg Q12H ANA MARÍA Administration Sodium Chloride 1,000 mls @ 100 mls/hr 03/21/20 01:45 03/21/20 02:55 Sodium Chloride 0.9% IV 100 mls/hr .Q10H ANA MARÍA Administration Diltiazem HCl 125 mg/ Sodium 125 mls @ 0 mls/hr 03/21/20 04:45 03/21/20 16:55 Chloride IV 0 mg/hr .Q0M ANA MARÍA 0 mls/hr Titration Protocol Per Protocol Sodium Chloride 1,000 mls @ 75 mls/hr 03/21/20 05:39 03/21/20 06:30 Sodium Chloride 0.9% IV 75 mls/hr .[id number] ANA MARÍA Administration Metoprolol Succinate 25 mg 03/21/20 09:00 03/21/20 09:09 Metoprolol Succinate Er (24 Hr) 25 Mg Tablet PO 25 mg DAILY ANA MARÍA Administration Nitroglycerin 0.4 mg 03/21/20 01:12 03/21/20 02:47 Nitroglycerin 0.4 Mg Sublingual Tablet SUBLINGUAL 0.4 tab Q5M PRN Administration CHEST PAIN Sertraline HCl 150 mg 03/21/20 09:00 03/21/20 09:09 Sertraline 100 Mg Tablet PO 150 mg DAILY ANA MARÍA Administration PFSH Acute PFSH: Medical History (Updated 03/21/20 @ 18:11 by Akosua Meade MD) Hyponatremia Lung cancer Lung mass Osteoarthritis of left knee Panic disorder [episodic paroxysmal anxiety] Port-A-Cath in place 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 Surgical History S/P bronchoscopy Social History Smoking and tobacco status: current every day smoker cigarettes Packs smoked per day: 1 Years cigarettes smoked: 44 Quit status (tobacco): considering quitting Smoking risk assessment/counseling performed?: Yes Tobacco counseling given: counseling >3 minutes Alcohol intake: current Alcohol intake frequency: few times a month Alcohol type: beer Lives independently: Yes Household members: none Marital status: Current occupational status: retired History of recent travel: No Current gender identity: Female Dietary Habits: Current diet type/program: regular Caffeine: Yes Caffeine intake frequency: coffee Number of coffee servings: 2 Vitals/I&O/Wt Last Vital Signs Temp 98.4 F 03/21/20 15:01 Pulse 93 03/21/20 15:01 Resp 25 H 03/21/20 15:01 BP 83/50 03/21/20 15:01 Pulse Ox 95 03/21/20 15:01 03/21/20 03/21/20 03/21/20 06:59 14:59 22:59 Intake Total 1000 / 1000 543.417 / 543.417 14.583 / 558.000 Output Total 200 / 200 Balance 1000 / 1000 343.417 / 343.417 14.583 / 358.000 Weight last 48 hrs Weight 130 lb Physical Exam Narrative: EXAM NARRATIVE: GENERAL: Patient is lethargic and fatigued. She appeared to be sleepy but open eyes on command and try to talk denies any chest pain. She appeared comfortable and not short of breath NECK: No jugular vein distension. HEENT: No cyanosis. No icterus. No pallor. HEART: Regular S1 and S2. No murmur, rub or gallop. LUNGS: Decreased breath sound on the right side, good air entry in the lung ABDOMEN: Soft, nontender and nondistended. Positive bowel sounds. No guarding, rebound or tenderness. CENTRAL NERVOUS SYSTEM: Grossly nonfocal. EXTREMITIES: Lower extremities without edema bilaterally. Data Labs: Other Labs: Atrial flutter MODERATE T-WAVE ABNORMALITY, nonspecific MODERATE T-WAVE ABNORMALITY, nonspecific A&P Assessment and plan (1) Atrial flutter with rapid ventricular response: And possibly has new onset of atrial flutter most likely due to inflammation in the vicinity of the heart secondary to mass/tumor with inflammation. I foresee it is a constant problem due to metastatic nature of the disease and large tumor burden. Since patient has slowed down with leatha viri at this point I will switch patient to p.o. Cardizem 60 mg twice a day along with metoprolol 25 mg twice a day however if patient went back again into A. fib or flutter we may will adopt rhythm control strategy with antiarrhythmics. I will also push IV fluid for possible underlying volume contraction. Further plan will be devised. Patient is on anticoagulation. Continue Status: Acute (2) Adenocarcinoma, lung: As per oncology and medicine Status: Acute Qualifiers: Laterality: right Qualified Code(s): C34.91 - Malignant neoplasm of unspecified part of right bronchus or lung (3) Superior vena cava thrombosis: Chronic superior vena cava and new pulmonary vein thrombus due to underlying malignancy and hypercoagulable state continue IV Lovenox. Status: Acute (4) Hypotension: Most likely due to volume contraction, continue hydration. Status: Acute Qualifiers: Hypotension type: hypotension due to hypovolemia Qualified Code(s): I95.89 - Other hypotension; E86.1 - Hypovolemia Consult Attestations Medical Necessity Statement: Patient require continuation hospitalization for above defined care. 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
--- NOTE | 2020-03-21 17:53 | PC.NURSE ---
dr pineda notified throughout the day of the blood pressures being soft. updated on vitals approximately at 1753 patient heart rate noted to be in 170's. dr pineda notified as nurse was walking down the [place], when nurse entered room patient heart rate in 90's to 110[address]. [address] pineda notified, no new orders at this time.
--- NOTE | 2020-03-21 19:41 | PC.NURSE ---
Received report from MANISHA Cardoso. Patient resting in bed with eyes closed. Assessment completed as documented. No distress observed at this time. Will continue to monitor
[2020-03-22] VITALS (56 sets, daily range): BP systolic 96–137; BP diastolic 54–90; PULSE 84–168; RESP 13–36; TEMP 36.2–36.6; O2SAT 87–98
--- NOTE | 2020-03-22 00:35 | PC.NURSE ---
Addendum entered by Mamta Mayer RN 03/22/20 00:46: Received telephone orders to discontinue Cardizem drip and to begin Amiodarone IV as ordered. Original Note: Noted patient heart rate to return to aflutter with rate up to 160s. Patient does go back and forth frequently from NSR to aflutter to afib not sustaining one thing for more than a few minutes at a time. Restarted Cardizem gtt at 5ml/hr as ordered. Will inform Dr Meade.
[2020-03-22] MEDS: ALPRAZolam 0.25 mg Tablet PO ×3 (00:53→20:32)
--- NOTE | 2020-03-22 02:46 | PC.NURSE ---
Patient requesting something for a dry nose. Informed Dr Portillo and received telephone order for saline nasal spray prn.
[2020-03-22] MEDS: saline nasal spray 44mL Btl 1 SPRAY NASAL (04:13)
[2020-03-22 05:09] LABS: Eosinophils % 0.7 %; Hematocrit 29.8 % (37.0-47.0); Hemoglobin 9.2 g/dL (11.5-15.3); Lymphocytes # 0.2 10^3/uL (0.8-4.8); Lymphocytes % 3.9 %; Mean Corpuscular HGB Conc 30.9 g/dL (30.0-36.0); Mean Corpuscular Hemoglobin 24.9 pg (28.0-34.0); Mean Corpuscular Volume 80.5 fL (81-99); Mean Platelet Volume 8.6 fL (7.4-10.4); Monocytes # 0.3 10^3/uL (0.2-0.9); Monocytes % 4.4 %; Neutrophils # 5.17 10^3/uL (1.8-7.7); Neutrophils % 90.5 %; Nucleated Red Blood Cells % 0 %; Platelet Count 310 10^3/cmm (130-400); Red Cell Distribution Width 17.1 % (12.1-15.1); White Blood Count 5.7 10^3/uL (4.0-10.0)
[2020-03-22 05:29] LABS: Blood Urea Nitrogen 12 mg/dL (8-23); Calcium 8.6 mg/dL (8.5-10.5); Carbon Dioxide 30 mmol/L (22-29); Chloride 87 mmol/L (98-107); Glomerular Filtration Rate 123.4 mL/min (90-130); Glucose 99 mg/dL (65-115); Osmolality Calculated 258 mOsm/kg (285-295); Sodium 124 mmol/L (136-145)
[2020-03-22 05:34] LABS: Magnesium 1.6 mg/dL (1.7-2.3)
[2020-03-22 05:45] LABS: Anion Gap 11.1 (5-19); Potassium 4.1 mmol/L (3.5-5.1)
[2020-03-22] MEDS: enoxaparin 60 mg/0.6 mL Syringe SUBCUT ×2 (07:13→18:22)
[2020-03-22] MEDS: clopidogrel 75 mg Tablet PO (08:52)
[2020-03-22] MEDS: dilTIAZem ER (12HR) 60 mg Capsule PO (08:52)
[2020-03-22] MEDS: sertraline 100 mg Tablet 150 MG PO (08:52)
[2020-03-22] MEDS: aspirin 81 mg EC Tablet PO (08:52)
[2020-03-22] MEDS: metoprolol succinate ER (24 HR) 25 mg Tablet PO (08:53)
[2020-03-22] MEDS: atorvastatin 40 mg Tablet 80 MG PO (08:53)
--- NOTE | 2020-03-22 12:16 | PC.CHAP ---
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 [] Patient/Family/Request visit [] Outpatient visit [] Follow-up visit [] Physician referral [] Code/Alert [x] Routine visit [] Staff referral [] Actively dying [] Patient sleeping [] Family support [] [] Out of room [] Palliative care [] [] Receiving care in room [] Pre-surgical visit [] Trauma [] Long length of stay [] ICU visit [] Other: Relational/Emotional Strength [] Patient feels connected with others/family/visitors/staff [] Distress [] Loneliness/isolation [] Abandonment Spirituality of Patient [] Person of Radha [] Attends Roman Catholic of their Radha [] Believes in Prayer [] Reads Bible or Scientology materials [] There are Spiritual issues to be addressed Broom Man Interventions [] Prayer [] Active listening [] Non-anxious presence [] Spiritual/emotional support [] Crisis/trauma care [] Spiritual counseling [] Bereavement support [] Provided bereavement packet [] Provided Bible/devotional materials [] Provided toy/stuffed animal, coloring book to patient or family member [] Provided Communion [] Anointing/[place] [] Salvation [] Completed spiritual assessment [] Other: Impact on Illness or Injury [] Angry [] Fearful [] Anxious [] Often cries [] Exhaustion [] Unable to work [] Unable to attend temple [] Unable to walk/stand [] Unable to read [] Unable to drive [] Unable to eat/drink [] Unable to sleep [] Unable to be with family [] Patient intubated [] Other: Summary Time spent with patient
--- NOTE | 2020-03-22 12:54 | P.PN_ITS ---
Subjective Subjective: Interval history: Patient was started on amiodarone infusion last night, currently running at 0.5/h. This morning she had a run of atrial flutter with heart rate to 1 60-1 70 while she was using the bathroom. Describes some dyspnea at that point. This resolved after being placed back in bed. Since then she has remained in sinus rhythm with heart rate between 80 to 90 bpm. States her dyspnea is better today. She appears more comfortable compared to yesterday. Medications: Reviewed: Yes Vitals/I&O/Wt Last Vital Signs Temp 97.2 F L 03/22/20 10:37 Pulse 95 03/22/20 10:37 Resp 27 H 03/22/20 10:37 BP 110/73 03/22/20 10:37 Pulse Ox 93 03/22/20 10:37 03/21/20 03/22/20 03/22/20 22:59 06:59 14:59 Intake Total 1014.583 / 1558.000 1.725 / 3527.146 6516.72 / 1452.72 Balance 1014.583 / 1358.000 1.725 / 4507.490 4094.72 / 1452.72 Weight last 48 hrs Weight 58.967 kg Physical Exam Narrative: EXAM NARRATIVE: GEN: Awake, alert and oriented, no acute distress CVS: S1S2 N RS: Reduced air entry with bronchial breathing over right lung, left side normal vesicular breath sounds. Abd: Soft, nt/nd , bs+ DIRECTOR AGRICULTURAL SERVICES: no focal neuro deficits Data : 03/22/20 04:28 03/22/20 04:28 A&P Assessment and plan (1) Atrial flutter with rapid ventricular response: Overnight patient developed episode of a flutter again, following which she was started on amiodarone infusion, currently running at 0.5. Heart rate is mostly now sinus rhythm ranging between 80 to 90 bpm, however this morning was up to 160 in a flutter while using the bathroom. Patient does appear to be more comfortable today. She is less dyspneic compared to yesterday. More alert and awake. Continue Cardizem, switch from 60 mg p.o. twice daily to more 24-hour release tablet of 120 mg p.o. daily, continue metoprolol 25 mg p.o. daily Start amiodarone 400 mg p.o. twice daily and discontinue drip over the next few hours. Magnesium at 1.6, will supplement with 1 g IV to keep a goal of 2.0. Currently overall picture and troponin bump likely to be secondary to a flutter, do not believe patient is experiencing an acute [place]. Discontinue Plavix and atorvastatin 80 mg as these are not part of her home meds. Status: Acute (2) Adenocarcinoma, lung: Patient is currently on chemoradiation with carboplatin/paclitaxel started on March 13. Patient's daughter today stated that with her first chemotherapy regimen, patient had developed tachycardia as well which necessitated stopping the chemotherapy [facility]. She received another round of chemotherapy 2 days ago, she does not know if the agents were changed this time. 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 Plan to discharge with same until follow-up with oncology. Status: Acute (4) Hyperkalemia: This was noted on labs from 1 AM. Repeat potassium and magnesium level Status: Acute Attestations Medical Necessity Statement*: Currently on amiodarone infusion, started overlap with p.o. medication, aim for control of a flutter and monitor closely on telemetry. Coding Level of Care Code Acute Shoe Patternmaker for Barbara Cruz Diagnoses Atrial flutter with rapid ventricular response I48.92 Adenocarcinoma, lung C34.91 Laterality: right Superior vena cava thrombosis I82.210 Hyperkalemia E87.5
[2020-03-22] MEDS: amiodarone 200 mg Tablet 400 MG PO (13:25)
--- NOTE | 2020-03-22 14:50 | PM.PN ---
Subjective Subjective: Interval history: Patient had episode of A. fib RVR in the morning. She has been switched to amiodarone. Currently in sinus rhythm we will switch her to the p.o. amiodarone Medications: Reviewed: Yes Vitals/I&O/Wt Last Vital Signs Temp 97.2 F L 03/22/20 10:37 Pulse 95 03/22/20 10:37 Resp 27 H 03/22/20 10:37 BP 110/73 03/22/20 10:37 Pulse Ox 93 03/22/20 10:37 03/21/20 03/22/20 03/22/20 22:59 06:59 14:59 Intake Total 1014.583 / 1558.000 1.725 / 9453.785 6271.72 / 1452.72 Balance 1014.583 / 1358.000 1.725 / 0096.170 9523.72 / 1452.72 Weight last 48 hrs Weight 130 lb Physical Exam Narrative: EXAM NARRATIVE: GENERAL: Patient is awake and oriented times 3 NECK: No jugular vein distension. HEENT: No cyanosis. No icterus. No pallor. HEART: Regular S1 and S2. No murmur, rub or gallop. LUNGS: Decreased breath sound on the right side, good air entry in the lung ABDOMEN: Soft, nontender and nondistended. Positive bowel sounds. No guarding, rebound or tenderness. CENTRAL NERVOUS SYSTEM: Grossly nonfocal. EXTREMITIES: Lower extremities without edema bilaterally. Data : 03/22/20 04:28 03/22/20 04:28 A&P Assessment and plan (1) Atrial flutter with rapid ventricular response: Patient will be switched from IV amiodarone to p.o. 400 mg twice daily discontinue Cardizem and continue metoprolol 25 mg twice a day. 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 Status: Acute (4) Hypotension: Improved. Status: Acute Qualifiers: Hypotension type: hypotension due to hypovolemia Qualified Code(s): I95.89 - Other hypotension; E86.1 - Hypovolemia Attestations Medical Necessity Statement*: Patient require continuation hospitalization for above defined care. Coding Level of Care Code Established Pt Acute Care Attendant for Chg Fwd Patient Type Established History Expanded Problem Focused Exam Expanded Problem Focused Medical Decision Making Moderate Complexity Diagnoses Atrial flutter with rapid ventricular response I48.92 Adenocarcinoma, lung C34.91 Laterality: right Superior vena cava thrombosis I82.210 Hypotension I95.89; E86.1 Hypotension type: hypotension due to hypovolemia
[2020-03-23] VITALS (9 sets, daily range): BP systolic 116–130; BP diastolic 72–82; PULSE 88–102; RESP 18–22; TEMP 35.7–36.9; O2SAT 94–99
[2020-03-23] MEDS: amiodarone 200 mg Tablet 400 MG PO ×2 (00:22→12:23)
[2020-03-23] MEDS: enoxaparin 60 mg/0.6 mL Syringe SUBCUT (04:54)
[2020-03-23 05:43] LABS: Basophils % 0.3 %; Eosinophils # 0.1 10^3/uL (0.0-0.8); Eosinophils % 1.3 %; Hematocrit 28.5 % (37.0-47.0); Hemoglobin 8.8 g/dL (11.5-15.3); Lymphocytes # 0.2 10^3/uL (0.8-4.8); Lymphocytes % 4.6 %; Mean Corpuscular HGB Conc 30.9 g/dL (30.0-36.0); Mean Corpuscular Hemoglobin 24.5 pg (28.0-34.0); Mean Corpuscular Volume 79.4 fL (81-99); Mean Platelet Volume 8.8 fL (7.4-10.4); Monocytes # 0.2 10^3/uL (0.2-0.9); Monocytes % 5.9 %; Neutrophils # 3.42 10^3/uL (1.8-7.7); Neutrophils % 87.4 %; Nucleated Red Blood Cells % 0 %; Platelet Count 277 10^3/cmm (130-400); Red Blood Count 3.59 10^6/uL (4.1-5.3); White Blood Count 3.9 10^3/uL (4.0-10.0)
[2020-03-23 06:01] LABS: Alanine Aminotransferase 17 U/L (0-33); Alkaline Phosphatase 107 IU/L (35-105); Anion Gap 9.6 (5-19); Aspartate Amino Transferase 12 U/L (0-32); Blood Urea Nitrogen 8 mg/dL (8-23); Calcium 8.6 mg/dL (8.5-10.5); Carbon Dioxide 30 mmol/L (22-29); Chloride 87 mmol/L (98-107); Globulin 2.7 g/dL (1.3-4.6); Glomerular Filtration Rate 123.4 mL/min (90-130); Glucose 83 mg/dL (65-115); Osmolality Calculated 253 mOsm/kg (285-295); Potassium 3.6 mmol/L (3.5-5.1); Sodium 123 mmol/L (136-145); Total Bilirubin 0.4 mg/dL (0.15-1.2); Total Protein 5.7 g/dL (6.6-8.7)
[2020-03-23 06:07] LABS: Magnesium 1.7 mg/dL (1.7-2.3)
[2020-03-23] MEDS: ipratropium-albuterol 3 mL Neb INHALATION (08:14)
[2020-03-23] MEDS: ALPRAZolam 0.25 mg Tablet PO (09:10)
[2020-03-23] MEDS: aspirin 81 mg EC Tablet PO (09:11)
[2020-03-23] MEDS: metoprolol succinate ER (24 HR) 25 mg Tablet PO (09:11)
[2020-03-23] MEDS: sertraline 100 mg Tablet 150 MG PO (09:11)
[2020-03-23] MEDS: dilTIAZem ER (24HR) 120 mg Capsule PO (09:11)
--- NOTE | 2020-03-23 13:45 | PC.NURSE ---
Patient's daughter called and stated that [facility] does not have the lovenox in stock. Spoke with Dr. Grissom and with pharmacy about sending one dose of lovenox home with patient. Okayed with physician. Spoke with patient and a daughter a second time to inform them [facility] and we will arrange for [facility] outpatient pharmacy. to fill prescription
--- NOTE | 2020-03-23 13:47 | P.DS_ITS ---
Discharge Providers Date of Admission: 03/21/20 04:59 Date of Discharge: March 23, 2020 Attending Provider at Admission: Akosua Portillo MD Attending Provider at Discharge: Dary Grissom MD Primary Care Provider: Jayna Schmitt MD Diagnoses at Discharge Discharge Diagnosis (1) Atrial flutter with rapid ventricular response: Status: Acute (2) Adenocarcinoma, lung: Status: Acute Qualifiers: Laterality: right Qualified Code(s): C34.91 - Malignant neoplasm of unspecified part of right bronchus or lung (3) Superior vena cava thrombosis: Status: Acute (4) Hypotension: Status: Acute Qualifiers: Hypotension type: hypotension due to hypovolemia Qualified Code(s): I95.89 - Other hypotension; E86.1 - Hypovolemia Reason for Visit Reason for Visit: chest pains Hospital Course Hospital Course Iram Denis is a 65 year old female who has history of clinical stage IIIb adenocarcinoma right upper lobe of lung status post chemoradiotherapy, superior vena cava thrombosis , 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 Amount of admission she subsequently developed a flutter with RVR and associated hypotension which is controlled after being started on a Cardizem infusion, p.o. beta-blockers and eventually amiodarone infusion. With these interventions her heart rate did come under control, she has now converted back into sinus rhythm. Heart rate is controlled between 80 to 90 bpm for the most part. She is being discharged today on amiodarone 400 mg p.o. daily, metoprolol 25 mg p.o. twice daily and instructions to follow-up with cardiology in 1 week. With the addition of above medications, her lisinopril has been discontinued as patient tended to be hypotensive during the course of admission. Per SVC and pulmonary vein thrombosis she was additionally started on anticoagulation with full dose Lovenox at 1 mg/kg every 12 hours. She will follow-up with Dr. Almeida from oncology to determine duration of anticoagulation. Lovenox has been preferred over oral anticoagulants at this time given her malignancy. She was initially started also on Asa, plavix and statins, however it is more likely that her troponin elevation without any significant delta is more related to leak from a flutter rather than an NSTEMI. Plavix and statins were therefore discontinued during admission. Aspirin additionally is being discontinued on discharge as her hemoglobin has slowly drifted to 8.8. Though there are no overt signs of bleeding at this time, I am concerned that the combination of Lovenox and baby aspirin may put her at a higher risk of bleeding complications. She was also noted to have hyponatremia, however this has been chronic at least since February 19. Patient is asymptomatic as far as neurological manifestations are concerned. 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 No specific treatment directed towards this at the time. Patient remains on 2-3 L/min oxygen via nasal cannula, which has been her recent baseline at home. Home health service was arranged at the time of discharge Physical Exam Narrative: EXAM NARRATIVE: GEN: Awake, alert and oriented, no acute distress , chronically ill-appearing lady CVS: S1S2 N RS: bronchial breath sounds with reduced air entry RLL Abd: Soft, nt/nd , bs+ GUN PERFORATOR: no focal neuro deficits Discharge Data Data Completed and Pending: Completed Studies During Hospitalization Category Date Time Status CT angio chest PE protcl [id number] Stat Cat Scan 03/21/20 01:43 Completed XR chest 1V jorge ble [id number] Stat Exams 03/21/20 01:29 Completed CV echo complete* [id number] Routine Ultrasound 03/21/20 05:39 Completed CV echo complete* [id number] Routine Ultrasound 03/21/20 13:32 Completed Labs from last 24 hours 03/23/20 03/23/20 03/23/20 04:25 04:25 04:25 WBC 3.9 L RBC 3.59 L Hgb 8.8 L Hct 28.5 L MCV 79.4 L MCH 24.5 L MCHC 30.9 RDW 17.0 H Plt Count 277 MPV 8.8 Neut % (Auto) 87.4 Lymph % (Auto) 4.6 Pershing % (Auto) 5.9 Eos % (Auto) 1.3 Baso % (Auto) 0.3 Neut # (Auto) 3.42 Lymph # (Auto) 0.2 L Pershing # (Auto) 0.2 Eos # (Auto) 0.1 Baso # (Auto) 0.0 Nucleated RBC % (a uto) 0 Nucleated RBCs # 0.0 Sodium 123 L Potassium 3.6 Chloride 87 L Carbon Dioxide 30 H Anion Gap 9.6 BUN 8 Creatinine 0.5 GFR Calculation 123.4 Glucose 83 Calculated Osmolal ity 253 L Calcium 8.6 Magnesium 1.7 Total Bilirubin 0.4 AST 12 ALT 17 Alkaline Phosphata se 107 H Total Protein 5.7 L Albumin 3.0 L Globulin 2.7 Vitals: Last Vital Signs Temp 96.2 F L 03/23/20 10:51 Pulse 88 03/23/20 12:39 Resp 20 H 03/23/20 12:39 BP 117/78 03/23/20 12:39 Pulse Ox 96 03/23/20 12:39 Discharge Plan Discharge Patient Disposition: Home Condition: Stable Prescriptions: New Pacerone 200 mg Tablet 400 mg PO DAILY 30 Days Qty: 30 RF: 0 metoprolol succinate 25 mg Tablet Extended Release 24 Hr 25 mg PO BID 30 Days Qty: 60 RF: 0 enoxaparin 60 mg/0.6 mL Syringe 60 mg SUBCUT Q12H 30 Days Qty: 60 RF: 0 alprazolam 0.25 mg Tablet 0.25 mg PO TID PRN (Reason: Anxiety) 7 Days Qty: 21 RF: 0 Continued sertraline [Zoloft] 100 mg tablet 150 mg PO DAILY Qty: 45 RF: 2 albuterol sulfate [ProAir HFA] 90 mcg/actuation HFA aerosol inhaler 2 puff INHALATION Q4H PRN (Reason: Shortness Of Breath) RF: 0 albuterol sulfate 2.5 mg /3 mL (0.083 %) solution for nebulization 2.5 mg INHALATION Q4H PRN (Reason: shortness of breath or wheezing) Qty: 90 RF: 0 hydrocodone-acetaminophen [Kaiser] 5-325 mg tablet 1 tab PO Q6H PRN (Reason: pain) Qty: 14 RF: 0 prednisone 50 mg tablet 50 mg PO DAILY Qty: 5 RF: 0 doxycycline hyclate 100 mg capsule 100 mg PO BID RF: 0 ipratropium-albuterol 0.5 mg-3 mg(2.5 mg base)/3 mL solution for nebulization 3 ml INHALATION TID PRN (Reason: Shortness Of Breath) RF: 0 prochlorperazine maleate 10 mg tablet 10 mg PO Q4H PRN (Reason: Nausea) RF: 0 pantoprazole 40 mg tablet,delayed release (DR/EC) 40 mg PO DAILY@05 RF: 0 triamcinolone acetonide 0.1 % ointment 1 applic TOPICAL TID RF: 0 dexamethasone 4 mg tablet See Rx Instructions .ROUTE .COMPLEX RF: 0 nicotine 21 mg/24 hr patch 24 hour 21 mg transdermal Q24H RF: 0 Virtussin AC 10-100 mg/5 mL liquid 5 ml PO Q4H PRN (Reason: Cough) RF: 0 oxycodone 5 mg tablet 5 - 10 mg PO Q4H PRN (Reason: Pain) RF: 0 Discontinued lisinopril-hydrochlorothiazide 20-12.5 mg tablet 1 tab PO DAILY@05 RF: 0 clonazepam 0.5 mg tablet 0.5 mg PO TID PRN (Reason: anxiety) Qty: 90 RF: 2 lorazepam 1 mg tablet 1 mg PO TID PRN (Reason: Nausea) RF: 0 Discharge Orders: Discharge Order (Routine); Ordered 03/23/20 Ordered By: Dary Grissom Referrals: [facility] Home Care ([facility]) [Outside] Jayna Schmitt MD [Primary Care Provider] - ([facility] will contact you to schedule an follow-up appointment in 4 to 7 days. If you haven't for them by Tuesday. Please call ) Akosua Meade MD [Physician] - 7-10 days ([facility] will contact you to schedule an follow-up 7 to 10 days. If you haven't heard from them by Tuesday. Please call ) Jeff Almeida MD [Hospitalist] - 1 week ([facility] will contact you to schedule an appointment in 1 week. If you haven't heard from by Tuesday. Please call ) Discharge Diet: Usual diet Discharge Activity: Increase activity as tolerated Patient Instructions: Metoprolol (By mouth), Amiodarone (By mouth), Enoxaparin (Injection), Venous Thromboembolism (DC), Chest Pain Stoplight Discharge Attestations Time Spent in Discharge Care*: greater than 30 min Quality Metrics Clinical Quality Measures During this hospital stay, did patient experience: None Coding Level of Care Code Acute Ore Roaster for Chg Fwd Diagnoses Atrial flutter with rapid ventricular response I48.92 Adenocarcinoma, lung C34.91 Laterality: right Superior vena cava thrombosis I82.210 Hypotension I95.89; E86.1 Hypotension type: hypotension due to hypovolemia
--- NOTE | 2020-03-23 14:48 | PM.PN ---
Subjective Subjective: Interval history: Stable heart rate is controlled. Denies any complaint patient has stable for the of her brother she would like to go home. Medications: Reviewed: Yes Vitals/I&O/Wt Last Vital Signs Temp 96.2 F L 03/23/20 10:51 Pulse 92 03/23/20 14:00 Resp 20 H 03/23/20 12:39 BP 117/78 03/23/20 12:39 Pulse Ox 96 03/23/20 12:39 03/22/20 03/23/20 03/23/20 22:59 06:59 14:59 Intake Total 600 / 2052.72 240 / 240 Output Total 300 / 300 Balance 300 / 1752.72 240 / 240 Physical Exam Narrative: EXAM NARRATIVE: GENERAL: Patient is awake and oriented times 3 NECK: No jugular vein distension. HEENT: No cyanosis. No icterus. No pallor. HEART: Regular S1 and S2. No murmur, rub or gallop. LUNGS: Decreased breath sound on the right side, good air entry in the lung ABDOMEN: Soft, nontender and nondistended. Positive bowel sounds. No guarding, rebound or tenderness. CENTRAL NERVOUS SYSTEM: Grossly nonfocal. EXTREMITIES: Lower extremities without edema bilaterally. Data : 03/23/20 04:25 03/23/20 04:25 A&P Assessment and plan (1) Atrial flutter with rapid ventricular response: Sinus rhythm on anticoagulation. 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 Status: Acute (4) Hypotension: Improved. Status: Acute Qualifiers: Hypotension type: hypotension due to hypovolemia Qualified Code(s): I95.89 - Other hypotension; E86.1 - Hypovolemia Attestations Medical Necessity Statement*: Patient can be discharged home. Follow-up with cardiology and heme-onc as an outpatient Coding Level of Care Code Established Pt Acute Ecommerce Marketing Specialist for g Fwd Patient Type Established History Expanded Problem Focused Exam Expanded Problem Focused Medical Decision Making Moderate Complexity Diagnoses Atrial flutter with rapid ventricular response I48.92 Adenocarcinoma, lung C34.91 Laterality: right Superior vena cava thrombosis I82.210 Hypotension I95.89; E86.1 Hypotension type: hypotension due to hypovolemia
== END 2020-03-23 14:15 | disposition home or self-care (01) | DRG 308 ==
LOC: ER 05:28 → CSU 05:32
PROVIDERS: Admitting Provider Internal Medicine; Emergency Provider Emergency Medicine; PCP Internal Medicine; Visit Provider Student in an Organized Health Care Education/Training Program
DX: I48.92 Unspecified atrial flutter (principal); I26.99 Other pulmonary embolism without acute cor pulmonale; C34.11 Malignant neoplasm of upper lobe, right bronchus or lung; C77.9 Secondary and unspecified malignant neoplasm of lymph node, unspecified; I82.211 Chronic embolism and thrombosis of superior vena cava; E22.2 Syndrome of inappropriate secretion of antidiuretic hormone; E87.5 Hyperkalemia; M17.11 Unilateral primary osteoarthritis, right knee; F41.0 Panic disorder [episodic paroxysmal anxiety]; F17.210 Nicotine dependence, cigarettes, uncomplicated; D53.9 Nutritional anemia, unspecified; Z79.899 Other long term (current) drug therapy; I95.89 Other hypotension; E86.1 Hypovolemia; Z79.51 Long term (current) use of inhaled steroids; Z79.891 Long term (current) use of opiate analgesic
CPT/HCPCS: 12345; 36415; 36592; 71045; 71275; 77336; 77386; 80048; 80053; 83605; 83690; 83735; 83880; 84484; 84550; 85025; 85378; 85610; 93005; 93306; 94640; 96367; 96372; 96375; 96413; 99214; 99283; J0282; J1100; J1200; J1650; J2270; J2405; J2469; J3475; J3490; J7030; J7040; J7050; J7060; J9267; Q9967

== ENCOUNTER 2020-04-10 05:45 | Outpatient (RCR) | payer MEDICARE, MEDICAID, SELFPAY ==
[2020-03-25 13:05] LABS: Basophils % 1.3 %; Eosinophils # 0.1 10^3/uL (0.0-0.8); Hematocrit 26.7 % (37.0-47.0); Hemoglobin 8.2 g/dL (11.5-15.3); Lymphocytes # 0.3 10^3/uL (0.8-4.8); Lymphocytes % 9.7 %; Mean Corpuscular HGB Conc 30.7 g/dL (30.0-36.0); Mean Corpuscular Hemoglobin 24.9 pg (28.0-34.0); Mean Corpuscular Volume 81.2 fL (81-99); Mean Platelet Volume 8.9 fL (7.4-10.4); Monocytes # 0.5 10^3/uL (0.2-0.9); Monocytes % 15.1 %; Neutrophils % 70.2 %; Nucleated Red Blood Cells % 0 %; Platelet Count 206 10^3/cmm (130-400); Red Blood Count 3.29 10^6/uL (4.1-5.3); Red Cell Distribution Width 17.7 % (12.1-15.1)
[2020-03-25 13:17] LABS: Alanine Aminotransferase 44 U/L (0-33); Albumin Level 3.1 g/dL (3.5-5.2); Alkaline Phosphatase 126 IU/L (35-105); Anion Gap 9.8 (5-19); Aspartate Amino Transferase 38 U/L (0-32); Blood Urea Nitrogen 14 mg/dL (8-23); Calcium 8.7 mg/dL (8.5-10.5); Carbon Dioxide 29 mmol/L (22-29); Chloride 92 mmol/L (98-107); Globulin 2.8 g/dL (1.3-4.6); Glucose 125 mg/dL (65-115); Osmolality Calculated 266 mOsm/kg (285-295); Potassium 3.8 mmol/L (3.5-5.1); Sodium 127 mmol/L (136-145); Total Bilirubin 0.2 mg/dL (0.15-1.2); Total Protein 5.9 g/dL (6.6-8.7)
[2020-03-27] MEDS: famotidine 20 mg/2 mL INJ IVP (11:35)
[2020-03-27] MEDS: diphenhydrAMINE 50 mg/mL SDV 1mL 25 MG IV (11:36)
[2020-03-27] MEDS: palonosetron 0.25 mg/5 mL SDV IV (11:40)
[2020-03-27] MEDS: sodium chloride 0.9% 250 ML 75 ML IV (12:00)
[2020-03-28 09:26] LABS: Basophils % 0.1 %; Hematocrit 28.5 % (37.0-47.0); Hemoglobin 8.9 g/dL (11.5-15.3); Lymphocytes # 0.2 10^3/uL (0.8-4.8); Lymphocytes % 2.3 %; Mean Corpuscular HGB Conc 31.2 g/dL (30.0-36.0); Mean Corpuscular Hemoglobin 25.3 pg (28.0-34.0); Monocytes # 0.5 10^3/uL (0.2-0.9); Monocytes % 6.6 %; Neutrophils % 90.1 %; Nucleated Red Blood Cells % 0 %; Platelet Count 256 10^3/cmm (130-400); Red Blood Count 3.52 10^6/uL (4.1-5.3); White Blood Count 7.9 10^3/uL (4.0-10.0)
[2020-03-31 10:22] LABS: Alanine Aminotransferase 37 U/L (0-33); Albumin Level 3.7 g/dL (3.5-5.2); Alkaline Phosphatase 119 IU/L (35-105); Anion Gap 11.7 (5-19); Aspartate Amino Transferase 18 U/L (0-32); Blood Urea Nitrogen 16 mg/dL (8-23); Carbon Dioxide 30 mmol/L (22-29); Chloride 90 mmol/L (98-107); Globulin 2.5 g/dL (1.3-4.6); Glucose 91 mg/dL (65-115); Osmolality Calculated 265 mOsm/kg (285-295); Potassium 4.7 mmol/L (3.5-5.1); Sodium 127 mmol/L (136-145); Total Bilirubin 0.3 mg/dL (0.15-1.2); Total Protein 6.2 g/dL (6.6-8.7)
[2020-03-31 13:07] LABS: Basophils % 0.4 %; Eosinophils % 1.2 %; Hematocrit 30.9 % (37.0-47.0); Hemoglobin 9.6 g/dL (11.5-15.3); Lymphocytes # 0.2 10^3/uL (0.8-4.8); Lymphocytes % 9.1 %; Mean Corpuscular HGB Conc 31.1 g/dL (30.0-36.0); Mean Corpuscular Hemoglobin 25.5 pg (28.0-34.0); Mean Corpuscular Volume 82.2 fL (81-99); Mean Platelet Volume 9.8 fL (7.4-10.4); Monocytes # 0.1 10^3/uL (0.2-0.9); Monocytes % 4.3 %; Neutrophils # 2.13 10^3/uL (1.8-7.7); Neutrophils % 84.2 %; Nucleated Red Blood Cells % 0 %; Platelet Count 201 10^3/cmm (130-400); Red Blood Count 3.76 10^6/uL (4.1-5.3); Red Cell Distribution Width 19.6 % (12.1-15.1); White Blood Count 2.5 10^3/uL (4.0-10.0)
--- NOTE | 2020-03-31 22:19 | ONC FU_ITS ---
[facility] Patient Note Patient: Iram Denis < Unit #: [id number]: 1955 Dictated By: Shreya MultaniDate of Visit: Mar 31, 2020 Onc MED Follow-Up/Prog Note Chief Complaint: Lung cancer. History of Present Illness: Ms Denis is a 65-year-old woman with newly diagnosed adenocarcinoma involving the upper lobe of the right lung, by clinical evaluation stage IIIB (T4, N2, M0). She has had gradually worsening shortness of breath over at least the past year. More recently, she also had worsening cough, generally productive of yellow sputum, though about a month ago she did have some hemoptysis. Her chest x-ray on 01/30/2020 showed a 10 cm right hilar/suprahilar mass extending into the right upper lobe consistent with a primary lung malignancy. This was noted to probably invade the mediastinum. Chest CT on 02/04/2020 showed large right hilar and suprahilar mass measuring 11.9 x 6.1 x 7.1 cm. There was slight narrowing of the distal main pulmonary artery and there was narrowing of the adjacent segmental and subsegmental right upper lobe pulmonary branches. There was encasement of the right mainstem bronchus with associated narrowing. There was invasion into the mediastinum and adjacent mediastinal fat, and there was mild narrowing of the distal trachea. There was narrowing with encasement of the right superior vena cava which appeared partially thrombosed. There was evidence of tumor thrombus in the mid segment of the SVC measuring approximately 4.1 cm. There was conglomerate right hilar lymphadenopathy. Interstitial infiltrates throughout the right lung appeared suspicious for lymphangitic metastases. On 02/08/2020 she underwent bronchoscopy/EBUS with endobronchial biopsy from the right upper lobe and with FNA biopsy of station 4R lymph node. Pathology on the station 4R lymph node biopsy was consistent with metastatic adenocarcinoma, favoring lung primary. The tumor cells were TTF-1 positive. PET/CT on 02/09/2020 showed FDG avid right upper lobe mass measuring 12.1 x 5.6 cm. There was mild activity and a 1.5 cm subcarinal lymph node, consistent with metastatic disease. Postobstructive atelectasis with right upper and middle lobe interstitial thickening was suspicious for carcinomatosis. Dr Almeida had seen her initially on 02/20/2020. As her disease appeared to be localized by clinical evaluation, she was recommended to undergo radiation concurrently with weekly carboplatin/paclitaxel chemotherapy. As she had symptoms of impending superior vena cava obstruction and she had poor peripheral venous access, she received several fractions of radiation prior to her week 1 chemotherapy infusion which was administered on 03/12/2020. With her treatment she was able to complete the full dose of paclitaxel, but the carboplatin was interrupted due to development of acute shortness of breath and pulmonary congestion. An infusion reaction was suspected, but given her underlying lung disease and locally advanced malignancy, it was uncertain. In any case, with additional steroid and pulmonary nebulizers her symptoms improved, and she was able to continue her radiation. Dr Yanes in radiation oncology has encouraged Ms Denis to pursue chemotherapy in combination with radiation therapy as he can see the response with treatment imaging. She did agree to treatment and received cycle 3 carboplatin paclitaxel on 03/27/2020. She is here today for follow-up. Her hemoglobin on 03/28/2020 was 8.9 and is pending for today. She states she has done really well. She states she feels better after receiving treatment. She denies any nausea or vomiting. She said no fever or chills. She denies diarrhea or constipation. She states her breathing is better. She is still has cough but has had no hemoptysis. She denies any neuropathy symptoms. She states she is eating better and in general feels much better. She states it really helped us to the imaging the Dr. Yanes did show her as this gave her motivation to continue treatment . Her ECOG remains at 2. Past Medical History: Anxiety/depression Hypertension Migraine headaches Past Surgical History: Cholecystectomy Flu Vaccine in 2019 - Given in right deltoid/lc Pneumonia Vaccine in 2019 - Given in left deltoid/lc Bronchoscopy with EBUS, right upper lobe endobronchial biopsy, FNA biopsy of station 4R lymph node in 2019 Cone biopsy for cervical cancer in 1987 Allergies: No Known Allergies. Medications: [facility] Nicotine 1 Patch(es) (of 21 mg/24hr) Patch 24 Hr Transdermal q 24 hours Ipratropium-Albuterol 3 mL (of 0.5-2.5 (3) mg/3mL) Solution Inhalation four times a day PRN KlonoPIN 1 Tablet (of 0.5 mg) Oral daily Lisinopril-hydroCHLOROthiazide 1 Tablet (of 20-12.5 mg) Oral daily oxyCODONE HCl 1 - 2 Tablet (of 5 mg) Oral q 4 hours Rivaroxaban 1 Tablet (of 20 mg) Oral daily Zoloft 1 Tablet (of 50 mg) Oral daily Family History: Ms. Denis's father is : heart disease, and hypertension, and myocardial infarction, and stroke. Father of stroke. Mother is also , cause unknown to the patient. A brother and a sister of lung cancer. Another sister had kidney failure. 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 She is a daily smoker who has smoked 1.0 pack/day for 44 years. She is a former drinker. She has indicated exposure to the following products: cigarettes. She has a history of smoking 1 pack of cigarettes daily for 40 years. She has now cut down to 1/2 pack/day. She has occasional alcohol use. Review Of Symptoms: Constitutional Denies fevers, chills, night sweats, excessive fatigue or weight loss. Tired but she states she feels better overall. Allergic/Immunologic No reactions. Eyes Denies significant visual changes. No diplopia. No amaurosis. ENMT Denies changes in hearing, sore throat, mouth sores, difficulty or changes in swallowing ability, and/or sinus drainage. Intermittent hoarseness but goes away by noon. Hematologic/Lymphatic Denies easy bruising or bleeding. The patient denies any tender or palpable lymph nodes. Respiratory Denies new or worsening dyspnea on exertion, chest pain, cough or hemoptysis. Denies orthopnea. Cardiovascular Denies anginal chest pain, palpitations or orthopnea. Gastrointestinal Denies nausea, vomiting, diarrhea, GI bleeding, or constipation. Denies change in bowel habits and/or stool color, no heartburn or early satiety. Genitourinary (F) No hematuria, hesitancy, incontinence, vaginal bleeding, discharge or other problems with urination. Musculoskeletal Denies joint pain, swelling or redness. No decreased range of motion. Integumentary Denies chronic rashes, inflammation, ulcerations or skin changes. Neurologic Denies headache, blurred vision, and no areas of focal weakness or numbness. Gait not assessed due to wheelchair. No sensory problems. Psychiatric Denies insomnia, depression, coty or mood swings. Vital Signs: Performed on Mar 31, 2020 10:31 Height - 66.00 in Weight - 125.6 lbs (LOW) BSA - 1.64 sq.m BMI - 20.27 Temperature - 98.7 F Pulse - 79 /min Respiration - 16 /min BP - 99/58 mm(hg) O2 Sat - 99 % Pain - 0,2 - Ambulatory/capable of all self-care, unable to perform any work activities. Up and about more than 50% of waking hours. (ECOG) Physical Examination: Constitutional Alert, oriented, no acute distress. Skin pink, warm and dry. Head Normocephalic; atraumatic. Eyes Conjunctivae and sclerae are clear and without icterus. Pupils are reactive and equal. Neck Supple without masses or thyromegaly. No jugular venous distension. Hematologic/Lymphatic No petechiae or purpura. No tender or palpable lymph nodes in the cervical or supraclavicular areas. Respiratory Lungs are clear to auscultation without rhonchi or wheezing. Cardiovascular Regular rate and rhythm of heart without murmurs,clicks, gallops or rubs. Abdomen Non-tender, non-distended, no masses or ascites. Good bowel sounds noted in all quads. No guarding or rebound tenderness. No pulsatile masses. Back/Spine Non-tender to palpation. Extremities No visible deformities, no cyanosis, clubbing or edema. Musculoskeletal No tenderness or swelling, normal range of motion without obvious weakness. Integumentary No rashes or lesions. Neurologic No sensory or motor deficits, normal cerebellar function. Psychiatric Alert and oriented times three. Coherent speech. Verbalizes understanding of our discussions today. Laboratory:Test performed on Mar 31, 2020 09:32 Sodium 127 mmol/L Potassium 4.7 mmol/L Chloride 90 mmol/L CO2 30 mmol/L Anion Gap 11.7 BUN 16 mg/dL Creatinine 0.6 mg/dL Cr Clearance (Est) 87.8400 mL/min eGFR 100.0 mL/min Glucose 91 mg/dL Osmolality - Calculated 265 mOsm/kg Calcium 9.0 mg/dL Protein, Total 6.2 g/dL Albumin 3.7 g/dL Globulin 2.5 g/dL Bilirubin, Total 0.3 mg/dL ALT (SGPT) 37 U/L AST (SGOT) 18 U/L Alkaline Phosphatase 119 IU/L WBC 2.5 10 3/uL RBC 3.76 10 6/uL HGB 9.6 g/dL HCT 30.9 % MCV 82.2 fL MCH 25.5 pg MCHC 31.1 g/dL RDW 19.6 % Platelet Count 201 10 3/cmm MPV 9.8 fL Neutrophils 2.13 10 3/uL Lymphocytes 0.2 10 3/uL Monocytes 0.1 10 3/uL Eosinophils 0.0 10 3/uL Basophils 0.0 10 3/uL Neutrophil % 84.2 % Lymphocyte % 9.1 % Monocyte % 4.3 % Eosinophil % 1.2 % Basophils % 0.4 % NRBC % 0 % Test performed on Mar 10, 2020 14:18 Iron 20 mcg/dL Iron Binding Capacity (TIBC) 211 mcg/dl % Iron Saturation 9.4 % UIBC 191 mcg/dL Impression: 1. Patient with adenocarcinoma involving the upper lobe of the right lung, by clinical evaluation stage at least IIIB (T4, N2, M0). 2. She underwent bronchoscopy/EBUS with right upper lobe endobronchial biopsy and with FNA biopsy of station 4R lymph node on 02/08/2020. Her other medical illnesses include: 3. Hypertension. 4. COPD. 5. She has history of migraine headaches. 6. She has remote history of cervical cancer, treated with cone biopsy. 7. Anxiety/depression. 8. Nicotine dependence. At presentation her disease was localized but very advanced within the chest. She was recommended to undergo radiation concurrently with weekly carboplatin/paclitaxel chemotherapy. By the time she started her treatment she had become very symptomatic, including impending superior vena cava syndrome. We had to delay starting her chemotherapy due to poor peripheral venous access, and she had received several fractions of radiation prior to her week 1 infusion of carboplatin/paclitaxel. She was able to complete the paclitaxel infusion, but her carboplatin was interrupted due to acute onset of shortness of breath and pulmonary congestion. This was possibly an infusion reaction, though Dr Almeida was not entirely certain of that. She improved with additional steroid therapy and pulmonary nebulizers, and she was able to continue with radiation. She is has shown some improvement in her symptoms, though she still has marginal performance status. Dr Yanes requested she resume chemotherapy as after it was added was when he moticed the biggest response. Plan: 1. Continue with current plan of care. She will not receive hemotherapy this week due to a short week due to the hol. We will plan to treat her again on 04/07/2020. 2. Her labs from today were pending but we reassured her that we could go over those with her tomorrow. She will be here for radiation. 3. She was offered supportive care as needed. Thus far she is doing well. 4. We will see her next week as scheduled with CBC CMP 5. Mrs. Denis was instructed to contact us in the interim should questions or problems arise. Signed By: Shreya Multani-, CNP Jeff Almeida MD <<Signature on File>>
--- NOTE | 2020-04-01 14:13 | ONCRAD TMN_ITS ---
Radiation Oncology Weekly Treatment Management Patient: Iram Denis MR#: [id number] : 1955 Attending Physician: Alf Yanes M.D. Date of Service: 04/01/2020 The patient is a 65-year-old white female diagnosed with a clinical stage IIIB (T4N2) adenocarcinoma of the right hilum and upper lobe of the lung. She has received 28 Gy of a prescribed 60 Springer with an intensity modulated radiotherapy plan utilizing a step and shoot treatment technique. She receives weekly carboplatin (AUC 2) and paclitaxel (50 mg/m???). Upon review of systems, she described improvement in her pulmonary function. On physical examination, the patient weighed 123 lbs. Her temperature was 98.6 ???F with a blood pressure of 123/75 mmHg. The pulse was 82 bpm and her respiratory rate was 20. Oxygen saturation with 3 L nasal cannula was 99%. There was no erythema within the treatment griffiths. Auscultation of the posterior lung griffiths identified decreased right sided breath sounds and rales were present in the left lung. Continue thoracic radiotherapy as planned. Signed by: Dr. Alf Yanes 04/01/2020 2:10:57 PM
[2020-04-07 09:59] LABS: Basophils % 0.4 %; Hematocrit 31.4 % (37.0-47.0); Hemoglobin 9.6 g/dL (11.5-15.3); Lymphocytes # 0.3 10^3/uL (0.8-4.8); Mean Corpuscular HGB Conc 30.6 g/dL (30.0-36.0); Mean Corpuscular Hemoglobin 26.2 pg (28.0-34.0); Mean Corpuscular Volume 85.6 fL (81-99); Mean Platelet Volume 9.7 fL (7.4-10.4); Monocytes # 0.1 10^3/uL (0.2-0.9); Monocytes % 2.5 %; Neutrophils % 83.3 %; Nucleated Red Blood Cells % 0 %; Platelet Count 198 10^3/cmm (130-400); Red Blood Count 3.67 10^6/uL (4.1-5.3); Red Cell Distribution Width 23.4 % (12.1-15.1); White Blood Count 2.8 10^3/uL (4.0-10.0)
[2020-04-07 10:17] LABS: Alanine Aminotransferase 36 U/L (0-33); Albumin Level 3.9 g/dL (3.5-5.2); Alkaline Phosphatase 149 IU/L (35-105); Anion Gap 21.1 (5-19); Aspartate Amino Transferase 26 U/L (0-32); Blood Urea Nitrogen 11 mg/dL (8-23); Calcium 9.4 mg/dL (8.5-10.5); Carbon Dioxide 22 mmol/L (22-29); Chloride 90 mmol/L (98-107); Ferritin 903 ng/mL (15-150); Globulin 3.1 g/dL (1.3-4.6); Glomerular Filtration Rate 83.7 mL/min (90-130); Glucose 177 mg/dL (65-115); Iron 64 ug/dL (37-145); Osmolality Calculated 272 mOsm/kg (285-295); Percent Saturation 20.1 % (20-50); Potassium 4.1 mmol/L (3.5-5.1); Sodium 129 mmol/L (136-145); Total Bilirubin 0.2 mg/dL (0.15-1.2); Total Iron Binding Capacity 317 mcg/dl; Unsaturated Iron Binding 253 ug/dL (112-347)
[2020-04-07 10:53] LABS: Slide Review Slide Review Perform
[2020-04-07] MEDS: famotidine 20 mg/2 mL INJ IVP (11:50)
[2020-04-07] MEDS: sodium chloride 0.9% 250 ML 75 ML IV (11:55)
[2020-04-07] MEDS: palonosetron 0.25 mg/5 mL SDV IV (11:55)
[2020-04-07] MEDS: diphenhydrAMINE 50 mg/mL SDV 1mL 25 MG IV (12:15)
--- NOTE | 2020-04-08 13:18 | ONC FU_ITS ---
[facility] Patient Note Patient: Iram Denis Unit #: [id number]: 1955 Dictated By: Shreya MultaniDate of Visit: Apr 07, 2020 Onc MED Follow-Up/Prog Note Chief Complaint: Lung cancer. History of Present Illness: Ms Denis is a 65-year-old woman with newly diagnosed adenocarcinoma involving the upper lobe of the right lung, by clinical evaluation stage IIIB (T4, N2, M0). She has had gradually worsening shortness of breath over at least the past year. More recently, she also had worsening cough, generally productive of yellow sputum, though about a month ago she did have some hemoptysis. Her chest x-ray on 01/30/2020 showed a 10 cm right hilar/suprahilar mass extending into the right upper lobe consistent with a primary lung malignancy. This was noted to probably invade the mediastinum. Chest CT on 02/04/2020 showed large right hilar and suprahilar mass measuring 11.9 x 6.1 x 7.1 cm. There was slight narrowing of the distal main pulmonary artery and there was narrowing of the adjacent segmental and subsegmental right upper lobe pulmonary branches. There was encasement of the right mainstem bronchus with associated narrowing. There was invasion into the mediastinum and adjacent mediastinal fat, and there was mild narrowing of the distal trachea. There was narrowing with encasement of the right superior vena cava which appeared partially thrombosed. There was evidence of tumor thrombus in the mid segment of the SVC measuring approximately 4.1 cm. There was conglomerate right hilar lymphadenopathy. Interstitial infiltrates throughout the right lung appeared suspicious for lymphangitic metastases. On 02/08/2020 she underwent bronchoscopy/EBUS with endobronchial biopsy from the right upper lobe and with FNA biopsy of station 4R lymph node. Pathology on the station 4R lymph node biopsy was consistent with metastatic adenocarcinoma, favoring lung primary. The tumor cells were TTF-1 positive. PET/CT on 02/09/2020 showed FDG avid right upper lobe mass measuring 12.1 x 5.6 cm. There was mild activity and a 1.5 cm subcarinal lymph node, consistent with metastatic disease. Postobstructive atelectasis with right upper and middle lobe interstitial thickening was suspicious for carcinomatosis. Dr Almeida had seen her initially on 02/20/2020. As her disease appeared to be localized by clinical evaluation, she was recommended to undergo radiation concurrently with weekly carboplatin/paclitaxel chemotherapy. As she had symptoms of impending superior vena cava obstruction and she had poor peripheral venous access, she received several fractions of radiation prior to her week 1 chemotherapy infusion which was administered on 03/12/2020. With her treatment she was able to complete the full dose of paclitaxel, but the carboplatin was interrupted due to development of acute shortness of breath and pulmonary congestion. An infusion reaction was suspected, but given her underlying lung disease and locally advanced malignancy, it was uncertain. In any case, with additional steroid and pulmonary nebulizers her symptoms improved, and she was able to continue her radiation. Dr Yanes in radiation oncology has encouraged Ms Denis to pursue chemotherapy in combination with radiation therapy as he can see the response with treatment imaging. She did agree to treatment and received cycle 3 carboplatin paclitaxel on 03/27/2020. She is here today for follow-up and cycle 4 chemotherapy. She states she has continued to do really well. She states she feels better after receiving treatment. She denies any nausea or vomiting. She said no fever or chills. She denies diarrhea or constipation. She states her breathing is better. She is still has cough but has had no hemoptysis. She denies any neuropathy symptoms. She states she is eating better and feels better than last week. Her ECOG remains at 2. Past Medical History: Anxiety/depression Hypertension Migraine headaches Past Surgical History: Cholecystectomy Flu Vaccine in 2019 - Given in right deltoid/lc Pneumonia Vaccine in 2019 - Given in left deltoid/lc Bronchoscopy with EBUS, right upper lobe endobronchial biopsy, FNA biopsy of station 4R lymph node in 2019 Cone biopsy for cervical cancer in 1987 Allergies: No Known Allergies. Medications: [facility] Nicotine 1 Patch(es) (of 21 mg/24hr) Patch 24 Hr Transdermal q 24 hours Ferrous Sulfate 1 Tablet (of 325 (65 fe) mg) Oral daily Ipratropium-Albuterol 3 mL (of 0.5-2.5 (3) mg/3mL) Solution Inhalation four times a day PRN KlonoPIN 1 Tablet (of 0.5 mg) Oral daily Lisinopril-hydroCHLOROthiazide 1 Tablet (of 20-12.5 mg) Oral daily oxyCODONE HCl 1 - 2 Tablet (of 5 mg) Oral q 4 hours Rivaroxaban 1 Tablet (of 20 mg) Oral daily Zoloft 1 Tablet (of 50 mg) Oral daily Family History: Ms. Denis's father is : heart disease, and hypertension, and myocardial infarction, and stroke. Father of stroke. Mother is also , cause unknown to the patient. A brother and a sister of lung cancer. Another sister had kidney failure. 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 She is a daily smoker who has smoked 0.5 packs/day for 44 years. She is a former drinker. She has indicated exposure to the following products: cigarettes. Review Of Symptoms: Constitutional Denies fevers, chills, night sweats, excessive fatigue or weight loss. Tired but she states she continues to feel better overall. Allergic/Immunologic No reactions. Eyes Denies significant visual changes. No diplopia. No amaurosis. ENMT Denies changes in hearing, sore throat, mouth sores, difficulty or changes in swallowing ability, and/or sinus drainage. Intermittent hoarseness but goes away by noon. Hematologic/Lymphatic Denies easy bruising or bleeding. The patient denies any tender or palpable lymph nodes. Respiratory Denies new or worsening dyspnea on exertion, chest pain, cough or hemoptysis. Denies orthopnea. Cardiovascular Denies anginal chest pain, palpitations or orthopnea. Gastrointestinal Denies nausea, vomiting, diarrhea, GI bleeding, or constipation. Denies change in bowel habits and/or stool color, no heartburn or early satiety. Genitourinary (F) No hematuria, hesitancy, incontinence, vaginal bleeding, discharge or other problems with urination. Musculoskeletal Denies joint pain, swelling or redness. No decreased range of motion. Integumentary Denies chronic rashes, inflammation, ulcerations or skin changes. Neurologic Denies headache, blurred vision, and no areas of focal weakness or numbness. Gait not assessed due to wheelchair. No sensory problems. Psychiatric Denies insomnia, depression, coty or mood swings. Vital Signs: Performed on Apr 07, 2020 11:21 Height - 66.00 in Weight - 129 lbs (HIGH) BSA - 1.66 sq.m BMI - 20.82 Temperature - 97.3 F (LOW) Pulse - 97 /min Respiration - 18 /min BP - 126/72 mm(hg) O2 Sat - 98 % Pain - 0,3 - Capable of only limited self-care, confined to bed or chair more than 50% of waking hours. (ECOG) Physical Examination: Constitutional Alert, oriented, no acute distress. Skin pink, warm and dry. Head Normocephalic; atraumatic. Eyes Conjunctivae and sclerae are clear and without icterus. Pupils are reactive and equal. Neck Supple without masses or thyromegaly. No jugular venous distension. Hematologic/Lymphatic No petechiae or purpura. No tender or palpable lymph nodes in the cervical or supraclavicular areas. Respiratory Lungs are clear to auscultation without rhonchi or wheezing. Cardiovascular Regular rate and rhythm of heart without murmurs,clicks, gallops or rubs. Abdomen Non-tender, non-distended, no masses or ascites. Good bowel sounds noted in all quads. No guarding or rebound tenderness. No pulsatile masses. Back/Spine Non-tender to palpation. Extremities No visible deformities, no cyanosis, clubbing or edema. Musculoskeletal No tenderness or swelling, normal range of motion without obvious weakness. Integumentary No rashes or lesions. Neurologic No sensory or motor deficits, normal cerebellar function. In wheelchair for mobility assistance. Psychiatric Alert and oriented times three. Coherent speech. Verbalizes understanding of our discussions today. Laboratory:Test performed on Apr 07, 2020 09:45 Ferritin 903 ng/mL Iron 64 mcg/dL Sodium 129 mmol/L Iron Binding Capacity (TIBC) 317 mcg/dl Potassium 4.1 mmol/L % Iron Saturation 20.1 % Chloride 90 mmol/L CO2 22 mmol/L UIBC 253 mcg/dL Anion Gap 21.1 BUN 11 mg/dL Creatinine 0.7 mg/dL Cr Clearance (Est) 75.2900 mL/min eGFR 83.7 mL/min Glucose 177 mg/dL Osmolality - Calculated 272 mOsm/kg Calcium 9.4 mg/dL Protein, Total 7.0 g/dL Albumin 3.9 g/dL Globulin 3.1 g/dL Bilirubin, Total 0.2 mg/dL ALT (SGPT) 36 U/L AST (SGOT) 26 U/L Alkaline Phosphatase 149 IU/L WBC 2.8 10 3/uL RBC 3.67 10 6/uL HGB 9.6 g/dL HCT 31.4 % MCV 85.6 fL MCH 26.2 pg MCHC 30.6 g/dL RDW 23.4 % Platelet Count 198 10 3/cmm MPV 9.7 fL Neutrophils 2.30 10 3/uL Lymphocytes 0.3 10 3/uL Monocytes 0.1 10 3/uL Eosinophils 0.0 10 3/uL Basophils 0.0 10 3/uL Neutrophil % 83.3 % Lymphocyte % 12.0 % Monocyte % 2.5 % Eosinophil % 0.0 % Basophils % 0.4 % NRBC % 0 % CBC Slide Review Slide Review Perform SLIDE REIVEW AGREES WITH AUTO DIFF Impression: 1. Patient with adenocarcinoma involving the upper lobe of the right lung, by clinical evaluation stage at least IIIB (T4, N2, M0). 2. She underwent bronchoscopy/EBUS with right upper lobe endobronchial biopsy and with FNA biopsy of station 4R lymph node on 02/08/2020. Her other medical illnesses include: 3. Hypertension. 4. COPD. 5. She has history of migraine headaches. 6. She has remote history of cervical cancer, treated with cone biopsy. 7. Anxiety/depression. 8. Nicotine dependence. At presentation her disease was localized but very advanced within the chest. She was recommended to undergo radiation concurrently with weekly carboplatin/paclitaxel chemotherapy. By the time she started her treatment she had become very symptomatic, including impending superior vena cava syndrome. We had to delay starting her chemotherapy due to poor peripheral venous access, and she had received several fractions of radiation prior to her week 1 infusion of carboplatin/paclitaxel. She was able to complete the paclitaxel infusion, but her carboplatin was interrupted due to acute onset of shortness of breath and pulmonary congestion. This was possibly an infusion reaction, though Dr Almeida was not entirely certain of that. She improved with additional steroid therapy and pulmonary nebulizers, and she was able to continue with radiation. She is has shown some improvement in her symptoms, though she still has marginal performance status. Dr Yanes requested she resume chemotherapy as after it was added was when he noticed the biggest response. She did resume chemotherapy on 03/27/2020. Plan: 1. Proceed with cycle 4 Carbo/Taxol 2. Steroid compliance confirmed. 3. Today's labs were reviewed in detail and discussed with Mrs. Denis and a copy was given to her. WBC 2.8, hemoglobin 9.6, platelets 198,000 ANC is 2300. Potassium 4.1 sodium is improved at 129 random glucose 177 which confirms steroid compliance BUN and creatinine are normal creatinine is 0.7 ALT is improved at 36 AST is 26 and her iron saturation is normal at 20%. 4. We will see her next week as scheduled with CBC CMP For consideration of week 5 carboplatin/paclitaxel. She was reminded to take her steroids once again prior to her treatment next week. 5. Mrs. Denis was instructed to contact us in the interim should questions or problems arise. Signed By: Shreya Multani-, [facility] Jeff Almeida MD <<Signature on File>>
== END 2020-04-10 23:59 | disposition home or self-care (01) ==
LOC: ONCMED 05:45
PROVIDERS: Internal Medicine Medical Oncology; Nurse Practitioner; Absent Provider Radiology Radiation Oncology; PCP Internal Medicine; Visit Provider Radiology Radiation Oncology
DX: Z51.0 Encounter for antineoplastic radiation therapy (principal); Z51.11 Encounter for antineoplastic chemotherapy; C34.11 Malignant neoplasm of upper lobe, right bronchus or lung; C77.1 Secondary and unspecified malignant neoplasm of intrathoracic lymph nodes; D50.9 Iron deficiency anemia, unspecified; F17.210 Nicotine dependence, cigarettes, uncomplicated; I10 Essential (primary) hypertension; J44.9 Chronic obstructive pulmonary disease, unspecified; F41.8 Other specified anxiety disorders; Z85.41 Personal history of malignant neoplasm of cervix uteri; Z79.899 Other long term (current) drug therapy; Z79.52 Long term (current) use of systemic steroids
CPT/HCPCS: 36591; 36592; 77336; 77386; 80053; 82728; 83540; 83550; 85025; 96367; 96375; 96413; 96417; 99214; J1100; J1200; J2469; J3490; J7030; J7050; J9045; J9267

== ENCOUNTER 2020-04-17 05:39 | Outpatient (RCR) | payer MEDICARE, MEDICAID, SELFPAY ==
[2020-04-15 09:06] LABS: Basophils % 0.6 %; Hematocrit 24.7 % (37.0-47.0); Hemoglobin 10.1 g/dL (11.5-15.3); Lymphocytes # 0.2 10^3/uL (0.8-4.8); Lymphocytes % 11.9 %; Mean Corpuscular HGB Conc 40.9 g/dL (30.0-36.0); Mean Corpuscular Hemoglobin 40.6 pg (28.0-34.0); Mean Corpuscular Volume 99.2 fL (81-99); Mean Platelet Volume 9.5 fL (7.4-10.4); Monocytes # 0.1 10^3/uL (0.2-0.9); Monocytes % 5.6 %; Neutrophils % 79.1 %; Nucleated Red Blood Cells % 0 %; Platelet Count 308 10^3/cmm (130-400); Red Blood Count 2.49 10^6/uL (4.1-5.3); Red Cell Distribution Width 31.3 % (12.1-15.1); White Blood Count 1.8 10^3/uL (4.0-10.0)
[2020-04-15 09:40] LABS: Alanine Aminotransferase 24 U/L (0-33); Alkaline Phosphatase 158 IU/L (35-105); Anion Gap 16.1 (5-19); Aspartate Amino Transferase 17 U/L (0-32); Blood Urea Nitrogen 19 mg/dL (8-23); Calcium 9.3 mg/dL (8.5-10.5); Carbon Dioxide 26 mmol/L (22-29); Chloride 93 mmol/L (98-107); Globulin 2.9 g/dL (1.3-4.6); Glomerular Filtration Rate 83.7 mL/min (90-130); Glucose 151 mg/dL (65-115); Osmolality Calculated 277 mOsm/kg (285-295); Potassium 4.1 mmol/L (3.5-5.1); Sodium 131 mmol/L (136-145); Total Bilirubin 0.2 mg/dL (0.15-1.2); Total Protein 6.9 g/dL (6.6-8.7)
[2020-04-15 10:04] LABS: Slide Review Slide Review Perform
--- NOTE | 2020-04-15 11:32 | ONCRAD TMN_ITS ---
Treatment Management Note Patient Name: Iram Denis Date of : 1955 Date of Service: 04/15/2020 Attending Physician: Alf Yanes M.D. Iram Denis is a 65-year-old white female diagnosed with a clinical stage IIIB (T4N2) adenocarcinoma of the right hilum and upper lobe of the lung. She has received 40 Gy of a prescribed 60 Springer with an intensity modulated radiotherapy plan utilizing a step and shoot treatment technique. She receives weekly carboplatin (AUC 2) and paclitaxel (50 mg/m???). Upon review of systems, she did not report any new complaints. On physical examination, the patient weighed 126 lbs. Her temperature was 97.9 ???F with a blood pressure of 105/71 mmHg. The pulse was 93 bpm and her respiratory rate was 17. Oxygen saturation with 3 L O2 via nasal cannula was 94%. There was no erythema within the treatment griffiths. Auscultation of the posterior lung griffiths identified bilateral rales. Continue thoracic radiotherapy as planned. Chemotherapy was held secondary to ANC decrease. Signed by: Dr. Alf Yanes 04/15/2020 11:31:02 AM
--- NOTE | 2020-04-18 21:29 | ONC FU_ITS ---
[facility] Patient Note Patient: Iram Denis Unit #: [id number]: 1955 Dictated By: Shreya MultaniDate of Visit: Apr 15, 2020 Onc MED Follow-Up/Prog Note Chief Complaint: Lung cancer. History of Present Illness: Ms Denis is a 65-year-old woman with newly diagnosed adenocarcinoma involving the upper lobe of the right lung, by clinical evaluation stage IIIB (T4, N2, M0). She has had gradually worsening shortness of breath over at least the past year. More recently, she also had worsening cough, generally productive of yellow sputum, though about a month ago she did have some hemoptysis. Her chest x-ray on 01/30/2020 showed a 10 cm right hilar/suprahilar mass extending into the right upper lobe consistent with a primary lung malignancy. This was noted to probably invade the mediastinum. Chest CT on 02/04/2020 showed large right hilar and suprahilar mass measuring 11.9 x 6.1 x 7.1 cm. There was slight narrowing of the distal main pulmonary artery and there was narrowing of the adjacent segmental and subsegmental right upper lobe pulmonary branches. There was encasement of the right mainstem bronchus with associated narrowing. There was invasion into the mediastinum and adjacent mediastinal fat, and there was mild narrowing of the distal trachea. There was narrowing with encasement of the right superior vena cava which appeared partially thrombosed. There was evidence of tumor thrombus in the mid segment of the SVC measuring approximately 4.1 cm. There was conglomerate right hilar lymphadenopathy. Interstitial infiltrates throughout the right lung appeared suspicious for lymphangitic metastases. On 02/08/2020 she underwent bronchoscopy/EBUS with endobronchial biopsy from the right upper lobe and with FNA biopsy of station 4R lymph node. Pathology on the station 4R lymph node biopsy was consistent with metastatic adenocarcinoma, favoring lung primary. The tumor cells were TTF-1 positive. PET/CT on 02/09/2020 showed FDG avid right upper lobe mass measuring 12.1 x 5.6 cm. There was mild activity and a 1.5 cm subcarinal lymph node, consistent with metastatic disease. Postobstructive atelectasis with right upper and middle lobe interstitial thickening was suspicious for carcinomatosis. Dr Almeida had seen her initially on 02/20/2020. As her disease appeared to be localized by clinical evaluation, she was recommended to undergo radiation concurrently with weekly carboplatin/paclitaxel chemotherapy. As she had symptoms of impending superior vena cava obstruction and she had poor peripheral venous access, she received several fractions of radiation prior to her week 1 chemotherapy infusion which was administered on 03/12/2020. With her treatment she was able to complete the full dose of paclitaxel, but the carboplatin was interrupted due to development of acute shortness of breath and pulmonary congestion. An infusion reaction was suspected, but given her underlying lung disease and locally advanced malignancy, it was uncertain. In any case, with additional steroid and pulmonary nebulizers her symptoms improved, and she was able to continue her radiation. Dr Yanes in radiation oncology has encouraged Ms Denis to pursue chemotherapy in combination with radiation therapy as he can see the response with treatment imaging. She did agree to treatment and received cycle 4 carboplatin paclitaxel on 04/07/2020. She is here today for follow-up and cycle 5 chemotherapy. She states she has continued to do good. She states she feels better in general with going back on the chemotherapy. She denies any nausea or vomiting. She has had no fever or chills. She denies diarrhea or constipation. She states her breathing is better. She is still has a cough once in a while but denies hemoptysis. She denies any neuropathy symptoms. She states she is eating better. She states she has had a little trouble swallowing. She states sometimes it is hard to swallow water and other times she can swallow just fine. She denies any swollen lymph nodes that she has felt. She denies any redness in the throat that she can see. She has been around anyone else that is been sick. Her ECOG remains at 2. Past Medical History: Anxiety/depression Hypertension Migraine headaches Past Surgical History: Cholecystectomy Flu Vaccine in 2019 - Given in right deltoid/lc Pneumonia Vaccine in 2019 - Given in left deltoid/lc Bronchoscopy with EBUS, right upper lobe endobronchial biopsy, FNA biopsy of station 4R lymph node in 2019 Cone biopsy for cervical cancer in 1987 Allergies: No Known Allergies. Medications: Cholecalciferol 1 Tablet (of 25 mcg ) Oral daily [facility] Nicotine 1 Patch(es) (of 21 mg/24hr) Patch 24 Hr Transdermal q 24 hours Ferrous Sulfate 1 Tablet (of 325 (65 fe) mg) Oral daily Ipratropium-Albuterol 3 mL (of 0.5-2.5 (3) mg/3mL) Solution Inhalation four times a day PRN KlonoPIN 1 Tablet (of 0.5 mg) Oral daily Metoprolol Tartrate 1 Tablet (of 25 mg) Oral b.i.d. oxyCODONE HCl 1 - 2 Tablet (of 5 mg) Oral q 4 hours Rivaroxaban 1 Tablet (of 20 mg) Oral daily Saline Nasal Hunter 1 (0.65 %) Solution Nasal daily Zoloft 1 Tablet (of 50 mg) Oral daily Family History: Ms. Denis's father is : heart disease, and hypertension, and myocardial infarction, and stroke. Father of stroke. Mother is also , cause unknown to the patient. A brother and a sister of lung cancer. Another sister had kidney failure. 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 She is a daily smoker who has smoked 0.5 packs/day for 45 years. She is a former drinker. She has indicated exposure to the following products: cigarettes. Review Of Symptoms: Constitutional Denies fevers, chills, night sweats, excessive fatigue or weight loss. Tired but she states she continues to feel OK . A little more tired this week . Allergic/Immunologic No reactions. Eyes Denies significant visual changes. No diplopia. No amaurosis. ENMT Denies changes in hearing, mouth sores, but she has had difficulty swallowing, which is new this week. Hard to swallow water at times. Intermittent hoarseness but goes away by noon. Respiratory Denies new or worsening dyspnea on exertion, chest pain, cough or hemoptysis. Denies orthopnea. Cardiovascular Denies anginal chest pain, palpitations or orthopnea. Gastrointestinal Denies nausea, vomiting, diarrhea, GI bleeding, or constipation. Denies change in bowel habits and/or stool color, no heartburn or early satiety. Genitourinary (F) No hematuria, hesitancy, incontinence, vaginal bleeding, discharge or other problems with urination. Musculoskeletal Denies joint pain, swelling or redness. No decreased range of motion. Integumentary Denies chronic rashes, inflammation, ulcerations or skin changes. Neurologic Denies headache, blurred vision, and no areas of focal weakness or numbness. Gait not assessed due to wheelchair. No sensory problems. Psychiatric Denies insomnia, depression, coty or mood swings. Vital Signs: Performed on Apr 15, 2020 11:20 Height - 66.00 in Weight - 126.2 lbs Temperature - 97.9 F Pulse - 86 Respiration - 20 BP - 105/71 mm(hg) O2 Sat - 97 % Pain - 0 Performed on Apr 15, 2020 11:20 BMI - 20.369 kg/m2 Performed on Apr 15, 2020 09:20 Height - 66.00 in Weight - 126.2 lbs (HIGH) BSA - 1.64 sq.m BMI - 20.37 Temperature - 97.9 F (LOW) Pulse - 93 /min Respiration - 17 /min BP - 105/71 mm(hg) O2 Sat - 94 % (LOW) Pain - 7,2 - Ambulatory/capable of all self-care, unable to perform any work activities. Up and about more than 50% of waking hours. (ECOG) Physical Examination: Constitutional Alert, oriented, no acute distress. Skin pink, warm and dry. Head Normocephalic; atraumatic. Eyes Conjunctivae and sclerae are clear and without icterus. Pupils are reactive and equal. ENMT YELLOW PASTY/PATCHY AREAS ON TONGUE. Neck Supple without masses or thyromegaly. Hematologic/Lymphatic No petechiae or purpura. No tender or palpable lymph nodes in the cervical or supraclavicular areas. Respiratory Lungs are clear to auscultation without rhonchi or wheezing. Cardiovascular Regular rate and rhythm of heart without murmurs,clicks, gallops or rubs. Back/Spine Non-tender to palpation. Extremities No visible deformities, no cyanosis, clubbing or edema. Musculoskeletal No tenderness or swelling, normal range of motion without obvious weakness. Integumentary No rashes or lesions. Neurologic No sensory or motor deficits, normal cerebellar function. In wheelchair for mobility assistance. Psychiatric Alert and oriented times three. Coherent speech. Verbalizes understanding of our discussions today. Laboratory:Test performed on Apr 15, 2020 08:48 Sodium 131 mmol/L Potassium 4.1 mmol/L Chloride 93 mmol/L CO2 26 mmol/L Anion Gap 16.1 BUN 19 mg/dL Creatinine 0.7 mg/dL Cr Clearance (Est) 71.44 mL/min eGFR 83.7 mL/min Glucose 151 mg/dL Osmolality - Calculated 277 mOsm/kg Calcium 9.3 mg/dL Protein, Total 6.9 g/dL Albumin 4.0 g/dL Globulin 2.9 g/dL Bilirubin, Total 0.2 mg/dL ALT (SGPT) 24 U/L AST (SGOT) 17 U/L Alkaline Phosphatase 158 IU/L WBC 1.8 10 3/uL RBC 2.49 10 6/uL HGB 10.1 g/dL HCT 24.7 % MCV 99.2 fL MCH 40.6 pg MCHC 40.9 g/dL RDW 31.3 % Platelet Count 308 10 3/cmm MPV 9.5 fL Neutrophils 1.40 10 3/uL Lymphocytes 0.2 10 3/uL Monocytes 0.1 10 3/uL Eosinophils 0.0 10 3/uL Basophils 0.0 10 3/uL Neutrophil % 79.1 % Lymphocyte % 11.9 % Monocyte % 5.6 % Eosinophil % 0.0 % Basophils % 0.6 % NRBC % 0 % CBC Slide Review Slide Review Perform SLIDE REVIEW AGREES WITH AUTOMATED RESULTS ST Test performed on Apr 07, 2020 09:45 Ferritin 903 ng/mL Iron 64 mcg/dL Iron Binding Capacity (TIBC) 317 mcg/dl % Iron Saturation 20.1 % UIBC 253 mcg/dL Impression: 1. Patient with adenocarcinoma involving the upper lobe of the right lung, by clinical evaluation stage at least IIIB (T4, N2, M0). 2. She underwent bronchoscopy/EBUS with right upper lobe endobronchial biopsy and with FNA biopsy of station 4R lymph node on 02/08/2020. Her other medical illnesses include: 3. Hypertension. 4. COPD. 5. She has history of migraine headaches. 6. She has remote history of cervical cancer, treated with cone biopsy. 7. Anxiety/depression. 8. Nicotine dependence. At presentation her disease was localized but very advanced within the chest. She was recommended to undergo radiation concurrently with weekly carboplatin/paclitaxel chemotherapy. By the time she started her treatment she had become very symptomatic, including impending superior vena cava syndrome. We had to delay starting her chemotherapy due to poor peripheral venous access, and she had received several fractions of radiation prior to her week 1 infusion of carboplatin/paclitaxel. She was able to complete the paclitaxel infusion, but her carboplatin was interrupted due to acute onset of shortness of breath and pulmonary congestion. This was possibly an infusion reaction, though Dr Almeida was not entirely certain of that. She improved with additional steroid therapy and pulmonary nebulizers, and she was able to continue with radiation. She is has shown some improvement in her symptoms, though she still has marginal performance status. Dr Yanes requested she resume chemotherapy as after it was added was when he noticed the biggest response. She did resume chemotherapy on 03/27/2020. Plan: PROBLEMS ADDRESSED TODAY: A. Adenocarcinoma of the the right upper lung 1. We will hold cycle 5 carboplatin paclitaxel due to an ANC of 1400. Her ANC last week was 2300. I am concerned that treating her today will result in a lower ANC that may interrupt not only her chemotherapy but her radiation plan. We typically cautiously give her Neupogen only when extremely necessary while on radiation due to risk of pneumonitis. Given Mrs. Denis's intolerance of the chemotherapy in the initial treatment stages, I elected just to hold her rather than try to give her Neupogen/growth factors. Her performance status also seems somewhat declined from last week. 2. Steroid compliance confirmed. 3. Today's labs were reviewed in detail and discussed with Mrs. Denis and a copy was given to her. WBC 1.8, hemoglobin 10.1, platelets 208,000 ANC is 1400 as above, potassium 4.1 creatinine 0.7 random glucose 151 LFTs are normal alk phos is 158. B. Dysphagia/oral Rosa 1. Encouraged her to utilize baking soda salt water gargles and. 2. We will also [facility] C. Follow-up plan: 1. We will see her next week as scheduled with CBC CMP For consideration of week 5 carboplatin/paclitaxel. I have asked for her CBC CMP to be done the day before chemotherapy so that she may avoid taking her premed steroids if her blood counts remain low. 2. Mrs. Denis was instructed to contact us in the interim should questions or problems arise. Signed By: Shreya Multani-, [facility] Jeff Almeida MD <<Signature on File>>
== END 2020-04-17 17:00 | disposition home or self-care (01) ==
LOC: ONCMED 05:39
PROVIDERS: Nurse Practitioner; Absent Provider Radiology Radiation Oncology; PCP Internal Medicine; Visit Provider Radiology Radiation Oncology
DX: Z51.0 Encounter for antineoplastic radiation therapy (principal); C34.11 Malignant neoplasm of upper lobe, right bronchus or lung; D50.8 Other iron deficiency anemias; F41.0 Panic disorder [episodic paroxysmal anxiety]
CPT/HCPCS: 36592; 77386; 80053; 85025; 99213; 99215

== ENCOUNTER 2020-04-17 17:24 | Inpatient (IN) | payer MEDICARE, MEDICAID, SELFPAY ==
[2020-04-17 17:33] VITALS: BP 91/57; PULSE 102; RESP 18; TEMP 38.3; O2SAT 96; BMI 21.6
--- NOTE | 2020-04-17 17:58 | XR_ITS ---
WS: [id number] Portable AP upright chest, 04/17/2020 Clinical Data: fever, lung CA Comparison: Portable chest, 03/21/2020. Findings: The right upper lobe mass has not changed. There is minimal elevation right diaphragm. Ther e is a small right effusion. The left lung is clear. The heart size is normal. No pneumonia or pneumo thorax is seen. XR/XR chest 1V portable [id number] Impression: 1. No change in right upper lobe mass. 2. Elevation of the right diaphragm with small right effusion. 3. Negative for acute pneumonia.
--- NOTE | 2020-04-17 19:17 | ECG_ITS ---
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 Measurements Intervals [place] Rate: 74 P: 68 OK: 160 QRS: 71 QRSD: 97 T: 90 QT: 397 QTc: 442 Interpretive Statements SINUS RHYTHM MODERATE T-WAVE ABNORMALITY, CONSIDER ANTERIOR ISCHEMIA [-0.1+ mV T WAVE IN V3/V4] Compared to ECG 03/21/2020 10:28:56 No significant changes Electronically Signed On 04-18-2020 13:48:06 LEGAL MANAGER by Jil Cooley M.D. [id number]
[2020-04-17 19:26] LABS: Lactate (Lactic Acid level) 1.5 mmol/L (0.5-2.2)
[2020-04-17 19:27] LABS: Alanine Aminotransferase 73 U/L (0-33); Albumin Level 3.5 g/dL (3.5-5.2); Alkaline Phosphatase 155 IU/L (35-105); Anion Gap 13.6 (5-19); Aspartate Amino Transferase 70 U/L (0-32); Blood Urea Nitrogen 25 mg/dL (8-23); Calcium 9.2 mg/dL (8.5-10.5); Carbon Dioxide 30 mmol/L (22-29); Chloride 92 mmol/L (98-107); Globulin 2.5 g/dL (1.3-4.6); Glomerular Filtration Rate 62.6 mL/min (90-130); Glucose 92 mg/dL (65-115); Osmolality Calculated 276 mOsm/kg (285-295); Potassium 4.6 mmol/L (3.5-5.1); Sodium 131 mmol/L (136-145); Total Bilirubin 0.3 mg/dL (0.15-1.2)
[2020-04-17 19:33] LABS: Basophils % 0.8 %; Eosinophils % 1.1 %; Hematocrit 32.5 % (37.0-47.0); Hemoglobin 9.8 g/dL (11.5-15.3); Lymphocytes # 0.1 10^3/uL (0.8-4.8); Lymphocytes % 3.3 %; Mean Corpuscular HGB Conc 30.2 g/dL (30.0-36.0); Mean Corpuscular Hemoglobin 26.6 pg (28.0-34.0); Mean Corpuscular Volume 88.3 fL (81-99); Mean Platelet Volume 9.1 fL (7.4-10.4); Monocytes # 0.9 10^3/uL (0.2-0.9); Monocytes % 25.6 %; Neutrophils # 2.39 10^3/uL (1.8-7.7); Neutrophils % 66.4 %; Nucleated Red Blood Cells % 0.6 %; Platelet Count 288 10^3/cmm (130-400); Red Blood Count 3.68 10^6/uL (4.1-5.3); Red Cell Distribution Width 25.9 % (12.1-15.1); White Blood Count 3.6 10^3/uL (4.0-10.0)
[2020-04-17] MEDS: levofloxacin-dextrose 5 % 750 MG/150 ML PREMIX 100 MG IV (19:46)
[2020-04-17] MEDS: ketorolac 30 mg/mL INJ 15 MG IVP (19:46)
[2020-04-17 19:47] VITALS: RESP 16; TEMP 37.2
[2020-04-17] MEDS: sodium chloride 0.9% 1,000 ML 999 ML IV (19:47)
[2020-04-17] MEDS: acetaminophen 325 mg Tablet 1000 MG PO (20:18)
[2020-04-17 20:19] VITALS: BP 87/59; O2SAT 99
[2020-04-17 20:21] LABS: Influenza A by IFA Negative (Negative); Influenza B by IFA Negative (Negative)
[2020-04-17 20:22] LABS: SARS Covid-2 Antigen Negative (Negative)
[2020-04-17 20:47] LABS: Hepatitis A Antibody IgM Non-Reactive (Nonreactive); Hepatitis B Core IgM Non-Reactive (Nonreactive); Hepatitis B Surface Antigen Non-Reactive (Nonreactive); Hepatitis C Virus Antibody Non-Reactive (Nonreactive)
--- NOTE | 2020-04-17 20:51 | CTR_ITS ---
PROCEDURE INFORMATION: Exam: CT Angiography Chest With Contrast Exam date and time: 04/17/2020 9:00 PM Age: 65 years old Clinical indication: Fever; Cough; Prior surgery; Surgery type: Gb, picc, bronch; Additional info: R/O pe. Right lung mass. TECHNIQUE: Imaging protocol: Computed tomographic angiography of the chest with intravenous contrast. 3D rendering (Not supervised by radiologist): MIP and/or 3D reconstructed images were created by the technologist. Radiation optimization: All CT scans at this facility use at least one of these dose optimization techniques: automated exposure control; mA and/or kV adjustment per patient size (includes targeted exams where dose is matched to clinical indication); or iterative reconstruction. Contrast material: OMNI 350; Contrast volume: 75 ml; Contrast route: INTRAVENOUS (IV); COMPARISON: CT angio chest PE protcl [id number] 03/21/2020 3:24 AM RADIATION DOSE METRICS: Total DLP (mGy-cm): 1655.46 FINDINGS: Pulmonary arteries: There is no evidence of filling defects within the pulmonary arterial circulation to suggest pulmonary embolism. There is a large left upper lobe mass extending along the mediastinal border and right hilus with encasement of the pulmonary artery branches to the right middle lobe is again identified. As noted previously the mass involves the lower superior vena cava and the right superior pulmonary vein, however mass is significantly smaller than on the previous examination and there is much less involvement of the superior vena cava and of the pulmonary vein compared with 03/21/2020. Aorta: Unremarkable. No aortic aneurysm. No aortic dissection. Lungs: There is satellite nodule in the anterior right upper lobe which may been present previously but the left upper lobe is better aerated than on the previous examination. There is some mild residual infiltrate in the left upper lobe. Pleural space: There is small right pleural effusion there is some partial atelectasis at the right lung base. Heart: There is moderate atherosclerotic calcification of the coronary arteries. Lymph nodes: Unremarkable. No enlarged lymph nodes. Bones/joints: Unremarkable. No acute fracture. Soft tissues: Unremarkable. IMPRESSION: 1. No evidence of pulmonary embolism. 2. Right upper lobe lung cancer shows improvement compared with 03/21/2020. PROCEDURE INFORMATION: Exam: CT Abdomen And Pelvis With Contrast Exam date and time: 04/17/2020 9:00 PM Age: 65 years old Clinical indication: Fever; Cough; Prior surgery; Surgery type: Gb, picc, bronch; Additional info: R/O pe. Right lung mass. TECHNIQUE: Imaging protocol: Computed tomography of the abdomen and pelvis with intravenous contrast. Radiation optimization: All CT scans at this facility use at least one of these dose optimization techniques: automated exposure control; mA and/or kV adjustment per patient size (includes targeted exams where dose is matched to clinical indication); or iterative reconstruction. Contrast material: OMNI 350; Contrast volume: 75 ml; Contrast route: INTRAVENOUS (IV); COMPARISON: 1. CT angio chest PE protcl [id number] 03/21/2020 3:24 AM 2. PT - PET Scan 02/09/2020 10:11:13 AM RADIATION DOSE METRICS: Total DLP (mGy-cm): 1655.46 FINDINGS: Liver: There is no focal abnormality within the liver. There is moderate enlargement of the liver. The liver measures 25 cm in height. Gallbladder and bile ducts: There has been a cholecystectomy. There is moderate biliary tract dilatation with the common bile duct measuring 13 mm in diameter. This is not unusual post cholecystectomy. Pancreas: The pancreas is normal. Spleen: The spleen is normal. Adrenal glands: The adrenal glands are normal. Kidneys and ureters: There are multiple simple renal cysts. There is also 2.7 cm sized peripherally calcified cyst in the left kidney not changed from 02/09/2020. There is no evidence of hydronephrosis. There is no evidence of renal or ureteral calcifications. Stomach and bowel: There is no evidence of colitis/diverticulitis. There is no evidence of intestinal obstruction. Appendix: Appendix is unremarkable. Intraperitoneal space: There is no evidence of free intraperitoneal fluid. Vasculature: The aorta demonstrates moderate atherosclerotic calcification. There is no evidence of an abdominal aortic aneurysm. Lymph nodes: There is no evidence of lymphadenopathy. Urinary bladder: Unremarkable as visualized. Reproductive: Uterus is heterogeneous in appearance likely due to multiple fibroids. Bones/joints: The lumbar spine demonstrates moderate degenerative changes at multiple levels. Soft tissues: Unremarkable. CT/CT angio chest w abd pel w con IMPRESSION: 1. Status post cholecystectomy. 2. Biliary tract dilatation is likely related to post cholecystectomy status. 3. Fibroid uterus 4. No acute abnormality. COMMENTS: Consistent with the [employer]'s Incidental Findings Committee white paper (J Am Luis Radiol 2018): Any incidental renal lesion less than 1 cm or classified as too small to characterize, or any incidental cystic renal lesion characterized as simple-appearing, is likely benign. No follow-up imaging is recommended for these lesions per consensus recommendations based on imaging criteria. Radiation Dose CTDIVOL = (mGy): DLP = 1655.46~1655.46 (mGy-cm)
[2020-04-17] MEDS: sodium chloride 0.9% 1,000 ML 700 ML IV (21:39)
[2020-04-17] MEDS: iohexol 350 mg/mL 100 mL Btl IV (21:39)
[2020-04-17 21:51] VITALS: BP 104/62; PULSE 80; RESP 19; O2SAT 97
[2020-04-17 21:55] LABS: NT Pro B Type Natriuretic Pept 1014 pg/mL (0-125)
[2020-04-17 23:00] VITALS: BP 101/73; PULSE 78; RESP 16; O2SAT 95
[2020-04-17 23:07] LABS: Add Urine Microscopic? NO
[2020-04-17 23:10] LABS: Bilirubin Urine Neg (Negative); Blood Urine Neg (Negative); Glucose Urine UA Norm (Normal); Ketones Urine Negative (Negative); Leukocyte Esterase Urine Negative (Negative); Nitrate Urine Negative (Negative); Protein Urine Neg (Negative); Specific Gravity, Urine 1.005 (1.005-1.030); Urine Appearance Clear (CLEAR); Urine Color Yellow (Yellow); Urobilinogen Urine Norm (Negative); pH Urine 5 (5-7)
--- NOTE | 2020-04-17 23:25 | ED_ITS ---
HPI - Fever General: Chief Complaint: Fever Stated Complaint: FEVER 101, CANCER PT Time Seen by Provider: 04/17/20 18:43 History of Present Illness: HPI Narrative: The patient is a 65-year-old female with past medical history heavy smoking, and right lung cancer. She is getting chemotherapy and radiation 5 days a week for this however she did not feel well all day today and came to the ER with a fever of 101. Admits increasing shortness of breath and she is requiring 2 L nasal cannula. to saturate in the 90s which she normally does not use oxygen. She was satting 88% on room air. She also complains of increased cough, and wheezing and is using her albuterol inhaler more at home MD elicited complaint: fever Associated symptoms: Reports chills; Deny abdominal pain, flank pain, chest pain, confusion, diarrhea, extremity pain, headache(s) or nasal congestion Review of Systems General: Reports: 10 or more systems reviewed and unremarkable except in HPI and below Const: Reports: fever(s), chills, fatigue and malaise Eyes: Denies: change in vision, blurry vision or eye redness ENMT: Denies: throat pain, swelling of lips/tongue, ear or mastoid pain or nasal congestion Card: Denies: chest pain, palpitations, irregular heart rhythm, edema, dyspnea on exertion or orthopnea Resp: Reports: dyspnea and non-productive cough GI: Denies: abdominal pain, diarrhea or GI cramping : Denies: flank pain, difficulty voiding, urinary frequency or urinary urgency Musc: Denies: neck pain, back pain, extremity pain, joint pain, joint redness, limited range of motion or muscle weakness Skin/Breast: Denies: rash, pruritus, erythema, skin pain or skin tenderness Neuro: Denies: headache(s), numbness in extremities, weakness in extremities, sensory changes, difficulty walking, dizziness, confusion or Slurred speech present Psych: Denies: anxiety or depression Endo: Denies: polyuria All/Imm: Denies: urticaria, throat swelling or tongue swelling PFSH ED PFSH: Medical History Hyponatremia Lung cancer Lung mass Osteoarthritis of left knee Panic disorder [episodic paroxysmal anxiety] Port-A-Cath in place 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 Surgical History S/P bronchoscopy Family History Other CAD (coronary artery disease) Cancer Dementia Hypertension Lung disease Stroke Denies family history of Diabetes Hyperlipidemia Chronic kidney disease (CKD) Family history of premature coronary artery disease Social History Smoking and tobacco status: current every day smoker cigarettes Years cigarettes smoked: 44 [ Other cigarette details: Hx of 1 PPD x 45 Years ] Quit status (tobacco): considering quitting Smoking risk assessment/counseling performed?: Yes Tobacco counseling given: counseling >3 minutes Alcohol intake: current Alcohol intake frequency: few times a month Alcohol type: beer Counseling given: No Counseling given: No Lives independently: Yes Household members: none Marital status: Current occupational status: retired History of recent travel: No Current gender identity: Female Physical Exam Const: COMMON NORMALS: no acute distress, average body habitus, patient oriented x3, no limitations, healthy appearing, alert and well nourished GENERAL APPEARANCE: cooperative, well developed and ill appearing ORIENTATION/CONSCIOUSNESS: Yes awake, Yes oriented to person, Yes oriented to place and Yes oriented to time HENMT: COMMON NORMALS: normocephalic, external ears normal and Normal external nose present HEAD & SCALP: normal to inspection and normocephalic NOSE: Normal external nose present EXTERNAL EAR: Yes external ears normal MOUTH: Normal oral and palatal mucosa present THROAT: posterior oropharynx normal Eye: COMMON NORMALS: Equal, round and reactive pupils present and EOMs intact bilaterally GENERAL EYE: appearance normal, both eyes and all related structures PUPIL: Yes Equal, round and reactive pupils present Neck/C-Spine: COMMON NORMALS: full ROM, no lymphadenopathy, no meningeal signs and no JVD GENERAL: Yes normal visual inspection Lymph: LYMPHATIC: no lymphadenopathy noted Chest: COMMONS NORMALS: normal inspection of the chest and normal palpation of entire chest wall Resp: COMMON NORMALS: normal respiratory effort, No retractions and No use of accessory muscles EFFORT & INSPECTION: Yes able to speak in complete sentences AUSCULTATION: wheezes and diminished lung sounds Cardio: COMMON NORMALS: no JVD, regular rate, regular rhythm, S1 normal heart sound present, S2 normal heart sound present and Peripheral pulses 2+ throughout RATE: regular rate RHYTHM: regular rhythm HEART SOUNDS: S1 normal heart sound present and S2 normal heart sound present PERIPHERAL PULSES: Peripheral pulses 2+ throughout GI: COMMON NORMALS: Normal to inspection, nondistended, normoactive bowel sounds present, Soft to palpation, non-tender and no masses INSPECTION: Yes normal to inspection PALPATION: Yes Soft to palpation : COMMON NORMALS: Yes no CVA tenderness BLADDER/KIDNEY EXAM: Yes no CVA tenderness Back/Pelvis: COMMON NORMALS: no CVA tenderness, thoracic and lumbar spine normal to inspection, no thoracic nor lumbar tenderness and thoraco-lumbar ROM normal Extremity: COMMON NORMALS: normal to inspection, full ROM, capillary refill normal, no joint enlargement and no pedal edema GENERAL: Yes normal exam except as noted Neuro: COMMON NORMALS: patient oriented x3, CN's II-XII intact bilaterally, moves all extremities, no focal motor deficits, no sensory deficits noted and gait normal SENSORIUM/ORIENTATION: Yes alert, Yes oriented to person, Yes oriented to place and Yes oriented to time MENINGEAL SIGNS: Yes no meningeal signs Psych: COMMON NORMALS: mental status grossly normal, Normal thought process present, cooperative, normal affect and speech normal ATTITUDE: Yes calm SPEECH: Yes normal speech THOUGHT PROCESS: Normal thought process present Skin: COMMON NORMALS: no rashes or lesions noted GENERAL SKIN EXAM: no rashes or lesions noted Course Vital Signs: Vital signs: Vital Signs Temperature 98.9 F 04/17/20 19:47 Pulse Rate 78 04/17/20 23:00 Respiratory Rate 16 04/17/20 23:00 Blood Pressure 101/73 04/17/20 23:00 Pulse Oximetry 95 04/17/20 23:00 MDM - Fever MDM Narrative: Medical decision making narrative: The patient has a fever and she is on chemotherapy and radiation. A source of her fever was not found but her white count is 3.6 probably related to her chemotherapy and she is at significant risk for occult infection. Also she undergoes radiation therapy 5 days a week which could be causing a radiation pneumonitis. She is requiring 2 L of oxygen to sat in the 90s and albuterol to help her breathe. Discussed with Dr. Weston who accepts to inpatient care. Lab Data: Labs: Lab Results 04/17/20 04/17/20 04/17/20 Range/Units 18:53 18:53 18:53 WBC 3.6 L (4.0-10.0) 10^3/ uL RBC 3.68 L (4.1-5.3) 10^6/u L Hgb 9.8 L (11.5-15.3) g/dL Hct 32.5 L (37.0-47.0) % MCV 88.3 (81-99) fL MCH 26.6 L (28.0-34.0) pg MCHC 30.2 (30.0-36.0) g/dL RDW 25.9 H (12.1-15.1) % Plt Count 288 (130-400) 10^3/c mm MPV 9.1 (7.4-10.4) fL Neut % (Auto) 66.4 % Lymph % (Auto) 3.3 % [place] % (Auto) 25.6 % Eos % (Auto) 1.1 % Baso % (Auto) 0.8 % Neut # (Auto) 2.39 (1.8-7.7) 10^3/u L Lymph # (Auto) 0.1 L (0.8-4.8) 10^3/u L [place] # (Auto) 0.9 (0.2-0.9) 10^3/u L Eos # (Auto) 0.0 (0.0-0.8) 10^3/u L Baso # (Auto) 0.0 (0.0-0.1) 10^3/u L Nucleated RBC % (a uto) 0.6 % Nucleated RBCs # 0.0 /100WBC Sodium 131 L (136-145) mmol/L Potassium 4.6 (3.5-5.1) mmol/L Chloride 92 L (98-107) mmol/L Carbon Dioxide 30 H (22-29) mmol/L Anion Gap 13.6 (5-19) BUN 25 H (8-23) mg/dL Creatinine 0.9 (0.5-0.9) mg/dL GFR Calculation 62.6 L (90-130) mL/min Glucose 92 (65-115) mg/dL Calculated Osmolal ity 276 L (285-295) mOsm/k g Lactate 1.5 (0.5-2.2) mmol/L Calcium 9.2 (8.5-10.5) mg/dL Total Bilirubin 0.3 (0.15-1.2) mg/dL AST 70 H (0-32) U/L ALT 73 H (0-33) U/L Alkaline Phosphata se 155 H (35-105) IU/L NT-Pro-B Natriuret Pep (0-125) pg/mL Total Protein 6.0 L (6.6-8.7) g/dL Albumin 3.5 (3.5-5.2) g/dL Globulin 2.5 (1.3-4.6) g/dL Urine Color (Yellow) Urine Appearance (CLEAR) Urine pH (5-7) Ur Specific Gravit y (1.005-1.030) Urine Protein (Negative) Urine Glucose (UA) (Normal) Urine Ketones (Negative) Urine Blood (Negative) Urine Nitrate (Negative) Urine Bilirubin (Negative) Urine Urobilinogen (Negative) mg/dL Ur Leukocyte Stephanie ase (Negative) Hepatitis A IgM Ab (Nonreactive) Hep Bs Antigen (Nonreactive) Hep B Core IgM Ab (Nonreactive) Hepatitis C Antibo dy (Nonreactive) Influenza Type A A g (Negative) Influenza Type B A g (Negative) SARS-CoV-2 Ag (Rap id) (Negative) 04/17/20 04/17/20 04/17/20 Range/Units 18:53 18:53 19:42 WBC (4.0-10.0) 10^3/ uL RBC (4.1-5.3) 10^6/u L Hgb (11.5-15.3) g/dL Hct (37.0-47.0) % MCV (81-99) fL MCH (28.0-34.0) pg MCHC (30.0-36.0) g/dL RDW (12.1-15.1) % Plt Count (130-400) 10^3/c mm MPV (7.4-10.4) fL Neut % (Auto) % Lymph % (Auto) % [place] % (Auto) % Eos % (Auto) % Baso % (Auto) % Neut # (Auto) (1.8-7.7) 10^3/u L Lymph # (Auto) (0.8-4.8) 10^3/u L [place] # (Auto) (0.2-0.9) 10^3/u L Eos # (Auto) (0.0-0.8) 10^3/u L Baso # (Auto) (0.0-0.1) 10^3/u L Nucleated RBC % (a uto) % Nucleated RBCs # /100WBC Sodium (136-145) mmol/L Potassium (3.5-5.1) mmol/L Chloride (98-107) mmol/L Carbon Dioxide (22-29) mmol/L Anion Gap (5-19) BUN (8-23) mg/dL Creatinine (0.5-0.9) mg/dL GFR Calculation (90-130) mL/min Glucose (65-115) mg/dL Calculated Osmolal ity (285-295) mOsm/k g Lactate (0.5-2.2) mmol/L Calcium (8.5-10.5) mg/dL Total Bilirubin (0.15-1.2) mg/dL AST (0-32) U/L ALT (0-33) U/L Alkaline Phosphata se (35-105) IU/L NT-Pro-B Natriuret Pep 1014 H (0-125) pg/mL Total Protein (6.6-8.7) g/dL Albumin (3.5-5.2) g/dL Globulin (1.3-4.6) g/dL Urine Color (Yellow) Urine Appearance (CLEAR) Urine pH (5-7) Ur Specific Gravit y (1.005-1.030) Urine Protein (Negative) Urine Glucose (UA) (Normal) Urine Ketones (Negative) Urine Blood (Negative) Urine Nitrate (Negative) Urine Bilirubin (Negative) Urine Urobilinogen (Negative) mg/dL Ur Leukocyte Stephanie ase (Negative) Hepatitis A IgM Ab Non-reactive (Nonreactive) Hep Bs Antigen Non-reactive (Nonreactive) Hep B Core IgM Ab Non-reactive (Nonreactive) Hepatitis C Antibo dy Non-reactive (Nonreactive) Influenza Type A A g Negative (Negative) Influenza Type B A g Negative (Negative) SARS-CoV-2 Ag (Rap id) (Negative) 04/17/20 04/17/20 Range/Units 19:42 22:56 WBC (4.0-10.0) 10^3/ uL RBC (4.1-5.3) 10^6/u L Hgb (11.5-15.3) g/dL Hct (37.0-47.0) % MCV (81-99) fL MCH (28.0-34.0) pg MCHC (30.0-36.0) g/dL RDW (12.1-15.1) % Plt Count (130-400) 10^3/c mm MPV (7.4-10.4) fL Neut % (Auto) % Lymph % (Auto) % [place] % (Auto) % Eos % (Auto) % Baso % (Auto) % Neut # (Auto) (1.8-7.7) 10^3/u L Lymph # (Auto) (0.8-4.8) 10^3/u L [place] # (Auto) (0.2-0.9) 10^3/u L Eos # (Auto) (0.0-0.8) 10^3/u L Baso # (Auto) (0.0-0.1) 10^3/u L Nucleated RBC % (a uto) % Nucleated RBCs # /100WBC Sodium (136-145) mmol/L Potassium (3.5-5.1) mmol/L Chloride (98-107) mmol/L Carbon Dioxide (22-29) mmol/L Anion Gap (5-19) BUN (8-23) mg/dL Creatinine (0.5-0.9) mg/dL GFR Calculation (90-130) mL/min Glucose (65-115) mg/dL Calculated Osmolal ity (285-295) mOsm/k g Lactate (0.5-2.2) mmol/L Calcium (8.5-10.5) mg/dL Total Bilirubin (0.15-1.2) mg/dL AST (0-32) U/L ALT (0-33) U/L Alkaline Phosphata se (35-105) IU/L NT-Pro-B Natriuret Pep (0-125) pg/mL Total Protein (6.6-8.7) g/dL Albumin (3.5-5.2) g/dL Globulin (1.3-4.6) g/dL Urine Color Yellow (Yellow) Urine Appearance Clear (CLEAR) Urine pH 5 (5-7) Ur Specific Gravit y 1.005 (1.005-1.030) Urine Protein Neg (Negative) Urine Glucose (UA) Norm (Normal) Urine Ketones Negative (Negative) Urine Blood Neg (Negative) Urine Nitrate Negative (Negative) Urine Bilirubin Neg (Negative) Urine Urobilinogen Norm (Negative) mg/dL Ur Leukocyte Stephanie ase Negative (Negative) Hepatitis A IgM Ab (Nonreactive) Hep Bs Antigen (Nonreactive) Hep B Core IgM Ab (Nonreactive) Hepatitis C Antibo dy (Nonreactive) Influenza Type A A g (Negative) Influenza Type B A g (Negative) SARS-CoV-2 Ag (Rap id) Negative (Negative) Discharge Plan Discharge Patient Disposition: Admitted As Inpatient Clinical Impression: Fever of unknown origin (FUO) Acute respiratory failure Qualifiers: Respiratory failure complication: hypoxia Qualified Code(s): J96.01 - Acute respiratory failure with hypoxia Condition: Stable Discharge Diet: Advance as tolerated Discharge Activity: Resume usual activity Coding Level of Care Code ED Healthcare Insurance Sales Agent for Barbara Cruz
[2020-04-18] VITALS (12 sets, daily range): BP systolic 106–151; BP diastolic 64–86; PULSE 66–82; RESP 16–18; TEMP 36.3–37.1; O2SAT 97–100
--- NOTE | 2020-04-18 02:45 | PM.HP ---
Providers/Chief Complaint Admitting Physician: Arben Weston Primary Care Provider: Jayna Schmitt MD Chief Complaint: FEVER 101, CANCER PT History of Present Illness Pleasant 65-year-old lady with COPD, adenocarcinoma of the lung, undergoing chemotherapy, radiation therapy presented to ER for evaluation due to malaise today. In ER noted with fever of 101 Fahrenheit. In ER she was transiently requiring some nasal cannula oxygen support. Reportedly was saturating 88% on room air. She denies any significant cough. No production of phlegm. Has had no chest pain or pressure. She has had a mild headache, which currently has resolved. She denies any muscle aches, chills, nausea vomiting, diarrhea. She denies any pain on swallowing. Denies any rash. She denies any chest pain or pressure. In ER chest x-ray and CT of the chest abdomen and pelvis were obtained due to concern for pneumonia. There is no finding of PE and fever with leukopenia in the setting of chemotherapy and radiation. Right upper lobe lung cancer shows improvement compared to prior imaging. CT abdomen shows status post cholecystectomy. Bili tract dilation likely related to history of cholecystectomy. Fibroid uterus. No acute abnormality. She denies any right upper quadrant discomfort. She does have mild transaminase elevation AST 70, ALT 73. Alk phos 155. Sodium is 131. BUN 25, creatinine 0.9. BNP 1014, although this is lower compared to March 21 at which point was 3798. EKG shows sinus rhythm, moderate T wave abnormality in anterior region. CBC shows WBC count of 3.6, absolute neutrophil count 2390. Hemoglobin 9.8. Urinalysis unremarkable. Hepatitis panel unremarkable. Rapid influenza a, B, and coronavirus are negative. Left arm PICC line reported to be placed in February. Review of Systems Const: Reports: fever(s) and malaise; Denies: chills or body aches Eyes: Denies: change in vision or eye redness ENMT: Denies: throat pain, oral sores or ear or mastoid pain Card: Denies: chest pain, edema, pre-syncope or dyspnea on exertion Resp: Denies: dyspnea, productive cough, change in phlegm color or hemoptysis GI: Denies: abdominal pain, nausea, vomiting, diarrhea, constipation, hematochezia or melena : Denies: flank pain, urinary frequency or hematuria Musc: Denies: back pain, joint swelling or joint redness Skin/Breast: Denies: rash, sores or new lesions Neuro: Denies: headache(s), numbness in extremities, weakness in extremities, dizziness, confusion or seizure-like activity Endo: Denies: polyuria or polydipsia Delfin/Lymph: Denies: easy bleeding or purpura All/Imm: Denies: urticaria, throat swelling or tongue swelling Medications/Allergies Home Medications Medication Instructions Recorded Confirmed Last Taken Type albuterol sulfate [ProAir HFA] 2 puff INHALATION Q4H PRN 02/07/20 04/16/20 03/03/20 History sertraline 100 mg tablet 150 mg PO DAILY #45 tab 02/18/20 04/16/20 03/21/20 Rx 100 mg hydrocodone-acetaminophen [[place]] 1 tab PO Q6H PRN #14 tab 03/13/20 04/16/20 03/21/20 Rx Virtussin AC 5 ml PO Q4H PRN 03/22/20 04/16/20 Unknown History dexamethasone See Rx Instructions .ROUTE .COMPLEX 03/22/20 04/16/20 03/20/20 History ipratropium-albuterol 3 ml INHALATION TID PRN 03/22/20 04/16/20 Unknown History nicotine 21 mg TRANSDERMAL Q24H 03/22/20 04/16/20 Unknown History oxycodone 5 - 10 mg PO Q4H PRN 03/22/20 04/16/20 Unknown History pantoprazole 40 mg PO DAILY@05 03/22/20 04/16/20 03/21/20 History prochlorperazine maleate 10 mg PO Q4H PRN 03/22/20 04/16/20 Unknown History triamcinolone acetonide 1 applic TOPICAL TID 03/22/20 04/16/20 Unknown History amiodarone [Pacerone] 400 mg PO DAILY 30 Days #30 tab 03/23/20 04/16/20 Unknown Rx metoprolol succinate 25 mg PO BID 30 Days #60 tab 03/23/20 04/16/20 Unknown Rx apixaban 5 mg tablet 5 mg PO BID 04/16/20 04/16/20 Unknown History nystatin 100,000 unit/mL oral 1 ml PO BID ml 04/16/20 04/16/20 Unknown History suspension tiotropium 2.5 mcg-olodaterol 2.5 2 puff INHALATION DAILY 30 Days #4 04/16/20 04/16/20 Unknown Rx mcg/actuation mist for inhalation g ondansetron HCl [Zofran] 4 mg PO Q8H 5 Days #15 tab 04/17/20 Unknown Rx Allergies Allergy/AdvReac Type Severity Reaction Status Date / Time No Known Allergies Allergy Verified 04/17/20 17:36 PFSH Acute PFSH: Medical History Hyponatremia Lung cancer Lung mass Osteoarthritis of left knee Panic disorder [episodic paroxysmal anxiety] Port-A-Cath in place 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 Surgical History S/P bronchoscopy Family History Other CAD (coronary artery disease) Cancer Dementia Hypertension Lung disease Stroke Denies family history of Diabetes Hyperlipidemia Chronic kidney disease (CKD) Family history of premature coronary artery disease Social History Smoking and tobacco status: current every day smoker cigarettes Years cigarettes smoked: 44 [ Other cigarette details: Hx of 1 PPD x 45 Years ] Quit status (tobacco): considering quitting Smoking risk assessment/counseling performed?: Yes Tobacco counseling given: counseling >3 minutes Alcohol intake: current Alcohol intake frequency: few times a month Alcohol type: beer Counseling given: No Counseling given: No Lives independently: Yes Household members: none Marital status: Current occupational status: retired History of recent travel: No Current gender identity: Female Vitals/I&O/Wt Last Vital Signs Temp 98.1 F 04/18/20 02:00 Pulse 66 04/18/20 02:07 Resp 16 04/18/20 02:07 BP 121/85 04/18/20 02:07 Pulse Ox 98 04/18/20 02:07 04/17/20 04/17/20 04/18/20 14:59 22:59 06:59 Intake Total 2150 / 2150 Balance 2150 / 2150 Weight last 48 hrs Weight 57.153 kg Physical Exam Const: COMMON NORMALS: no acute distress and patient oriented x3 HENMT: COMMON NORMALS: oropharynx normal Neck/C-Spine: COMMON NORMALS: no JVD Resp: COMMON NORMALS: normal respiratory effort and clear to auscultation bilaterally AUSCULTATION: clear to auscultation bilaterally Cardio: COMMON NORMALS: no JVD, regular rhythm, S1 normal heart sound present, S2 normal heart sound present and No murmurs present (Cardio) RHYTHM: regular rhythm HEART SOUNDS: S1 normal heart sound present and S2 normal heart sound present GI: COMMON NORMALS: Normal to inspection, nondistended, normoactive bowel sounds present, Soft to palpation and non-tender PALPATION: Yes Soft to palpation Extremity: COMMON NORMALS: no joint enlargement and no pedal edema NARRATIVE EXTREMITY EXAM: L arm PICC Neuro: COMMON NORMALS: patient oriented x3 and moves all extremities Skin: COMMON NORMALS: no rashes or lesions noted GENERAL SKIN EXAM: no rashes or lesions noted Data : 04/17/20 18:53 04/17/20 18:53 Micro: Microbiology 04/17/20 20:46 Blood Culture - Preliminary Blood SPECIMEN COLLECTED 04/17/20 20:44 Blood Culture - Preliminary Blood SPECIMEN COLLECTED A&P Assessment and plan (1) Fever of unknown origin (FUO): Intermittently on room air. Malaise today with noted fever 101F. Unclear source of fever. Mild hypoxia, although no sign of pneumonia or CHF. Has no chest pain. Is not coughing. Requires only minimal oxygen. UA is unremarkable. She is having mild nausea, had no vomiting, no diarrhea. No abdominal discomfort. There is minimal transaminitis. Hepatitis panel was negative. She has history of cholecystectomy. There is mild dilation of CBD. Will assess by right upper quadrant ultrasound including perihepatic duplex study to assess the vessels given reported history of central venous thrombosis. She does also have a PICC line which reportedly has been placed in February. Requested that PICC line be removed and tip sent for culture. She has declined, however, to have the PICC line removed until this is confirmed with Dr. Almeida. Please reach out to him tomorrow to confirm that PICC line removal is okay. Would remove the PICC line with culture of the tip, and subsequently if blood cultures clear, if necessary may have another one replaced to continue chemotherapy. Given she is febrile, with leukopenia, possible sepsis, blood cultures have been sent. Empirically she has received Levaquin, will continue coverage with Levaquin and add vancomycin. Status: Acute (2) Hypoxia: Not clear source of hypoxia. She has been getting radiotherapy, radiation pneumonitis may be a possibility, although contrast CT is not suggestive of current pneumonitis. Vasculature on the contra study appears unremarkable. Tumor appears to be somewhat smaller than previously. She has history of pulmonary venous tumor thrombosis, and this may be contributing to her hypoxia. She is on anticoagulation and would continue. Status: Acute (3) Adenocarcinoma, lung: Resume follow-up with radiation and radiation oncology. Status: Acute Qualifiers: Laterality: right Qualified Code(s): C34.91 - Malignant neoplasm of unspecified part of right bronchus or lung (4) Transaminitis: As above. She has no upper quadrant pain, perhaps minimal tenderness to palpation. Hepatitis panel negative. Assessed with perihepatic ultrasound of hepatobiliary structures and vasculature. She is status post cholecystectomy. Possible effect of chemotherapy. Status: Acute Attestations Medical Necessity Statement*: Admission of over 2 midnights is greater needed for assessment of management of fever in a immunocompromised lady with adenocarcinoma of the lung undergoing chemotherapy and radiation therapy, with possible sepsis. Coding Level of Care Code Acute Sub Arc Operator for [facility] Fwd 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 Diagnoses Fever of unknown origin (FUO) R50.9 Hypoxia R09.02 Adenocarcinoma, lung C34.91 Laterality: right Transaminitis R74.01
--- NOTE | 2020-04-18 03:22 | PC.NURSE ---
Received orders to remove patients PICC line. Patient refused to let this RN do so. Stating that she would like to speak with Dr. Almeida before it is removed as this is her only way to receive chemo. This RN notified Dr. Weston, no other needs voiced at this time.
--- NOTE | 2020-04-18 05:39 | US_ITS ---
WS: [id number] RIGHT UPPER QUADRANT ULTRASOUND HISTORY: hepatobiliary - transaminitis. Unclear source of fever. COMPARISON: None available. Liver: 18.1 cm in length. Liver is top normal size to very slightly enlarged. Surface of the liver is slightly irregular and undulating. No mass or bile duct dilatation. Gallbladder: Prior cholecystectomy. CBD: 1.3 cm Pancreas: Normal size and echogenicity. Right kidney: 11.3 cm in length. Normal size kidney. Cortical cyst mid kidney measures 1.3 x 1.2 x 1. 2 cm. No solid mass or obstruction. Aorta and IVC: Unremarkable abdominal aorta and IVC. No ascites. US/US abdomen limited [id number] IMPRESSION: 1. Prior cholecystectomy. Common bile duct and mild central bile duct dilatati on was also noted on a recent CT. No stones or pancreatic head mass identified. May be physiologic and related to cholecystectomy. 2. Dilated common bile duct. 3. Mild hepatomegaly.
--- NOTE | 2020-04-18 06:07 | PC.PHAR ---
Vancomycin is dosed at 1gm IVPB every 24 hours to produce a predicted trough level of 11.49 (population based pharmacokinetic analysis). A trough level has been ordered from the lab to be obtained before the fourth dose to confirm and adjust if needed.
[2020-04-18] MEDS: vancomycin 1,000 MG in sodium chloride 0.9% 250 ML 250 MG IV (06:24)
[2020-04-18] MEDS: ipratropium-albuterol 3 mL Neb INHALATION ×2 (07:43→12:22)
[2020-04-18] MEDS: apixaban 5 mg Tablet PO (08:33)
[2020-04-18] MEDS: sertraline 100 mg Tablet PO (08:33)
[2020-04-18] MEDS: metoprolol tartrate 25 mg Tablet PO (08:33)
[2020-04-18] MEDS: amiodarone 200 mg Tablet 400 MG PO (08:33)
[2020-04-18] MEDS: pantoprazole DR 40 mg Tablet PO (08:33)
--- NOTE | 2020-04-18 09:51 | USCV_ITS ---
Adeel Iram Age: 65 Gender: F : 1955 Exam Date: 04/18/2020 11:04 Ordering Phys: Eulalio Amor MD Technologist: Comfort Hayes Exam Location: [facility] [place] Indication: FEVERS BP: 151 / 86 HR: 79 Rhythm: Sinus Technical Quality: Adequate MEASUREMENTS (Male / Female) Normal Values 2D ECHO LV Diastolic Diameter PLAX 3.9 cm 4.2 - 5.9 / 3.9 - 5.3 cm LV Systolic Diameter PLAX 2.7 cm LV Chamber Size 2.6 cm IVS Diastolic Thickness 1.3 cm 0.6 - 1.0 / 0.6 - 0.9 cm IVS Systolic Thickness 1.6 cm LVPW Diastolic Thickness 2.3 cm 0.6 - 1.0 / 0.6 - 0.9 cm LVPW Systolic Thickness 2.3 cm RV Chamber Size 3.6 cm LVOT Diameter 2.0 cm LV Ejection Fraction 2D Teich 58.3 % LV Ejection Fraction MOD 2C 42.5 % LV Ejection Fraction 2C AL 42.1 % LA Diameter 3.7 cm LA Width 4.0 cm LA Height 4.9 cm RA Width 3.2 cm RA Height 3.2 cm Aorta at Sinotubular Diameter 2.9 cm M-MODE LV Diastolic Diameter MM 4.7 cm 4.2 - 5.9 / 3.9 - 5.3 cm LV Systolic Diameter MM 3.1 cm LV Ejection Fraction MM Teich 62.5 % IVS Diastolic Thickness MM 1.3 cm 0.6 - 1.0 / 0.6 - 0.9 cm IVS Systolic Thickness MM 1.8 cm LVPW Diastolic Thickness MM 1.0 cm 0.6 - 1.0 / 0.6 - 0.9 cm LVPW Systolic Thickness MM 1.6 cm Aortic Annulus Diameter 3.8 cm LA Ao Ratio MM 1.1 MV E Point Septal Separation 1.5 cm DOPPLER AV Peak Velocity 114.0 cm/s LVOT Peak Velocity 93.0 cm/s AV Area Cont Eq vti 2.5 cm squared AV Area Cont Eq pk 2.6 cm squared MV Area PHT 4.3 cm squared Mitral E to A Ratio 0.9 MV E' Velocity 51.5 cm/s Mitral E to MV E' Ratio 7.7 Mitral E to LV E' Lateral Ratio 5.6 Mitral E to LV E' Septal Ratio 12.1 TR Peak Velocity 104.8 cm/s TR Peak Gradient 4.4 mmHg TR Mean Velocity 59.6 cm/s TR Mean Gradient 1.4 mmHg TR Velocity Time Integral 0.0 cm TV Peak E Velocity 62.0 cm/s Right Atrial Pressure 3.0 mmHg Pulmonary Artery Systolic Pressu 7.4 mmHg PV Peak Velocity 68.0 cm/s RV Acceleration Time 0.1 s RV Ejection Time 0.3 s RV AcT/ET 0.4 FINDINGS Left Ventricle Normal left ventricular cavity size. Normal left ventricular wall thickness. Low normal left ventricular systolic function. Left ventricular ejection fraction is estimated at 50 -55%. No regional wall motion abnormalities. Normal diastolic function. Right Ventricle Normal right ventricular size and systolic function. Right ventricular systolic pressure 7.4 mmHg. Right Atrium Normal right atrial size. Left Atrium Upper normal left atrial size. Mitral Valve Mild mitral annular calcification. Thickened mitral valve. No mitral valve stenosis. Trace mitral valve regurgitation. Aortic Valve Aortic valve not well visualized. No aortic valve stenosis. No aortic valve regurgitation. Tricuspid Valve Structurally normal tricuspid valve. Pulmonic Valve No pulmonary valve stenosis. Mild pulmonary valve regurgitation. Pericardium No pericardial effusion. Aorta Normal-sized aortic root. Normal-sized inferior vena cava. CONCLUSIONS 1. Normal left ventricular cavity size and wall thickness. Low normal left ventricular systolic function. Left ventricular ejection fraction is estimated at 50 -55%. No regional wall motion abnormalities. Normal diastolic function. 2. Normal pulmonary artery pressure. 3. No significant valvular normality. 4. Valvular vegetation cannot be completely ruled out based on the study. LEXIS is recommended if clinically indicated. Jil Cooley MD (Electronically Signed) Final Date: 18 April 2020 18:15 S
[2020-04-18 12:57] LABS: C Reactive Protein 48.4 mg/L (0.0-4.9)
[2020-04-18 13:04] LABS: Procalcitonin 0.61 ng/mL (0-0.5)
[2020-04-18 13:24] LABS: Erythrocyte Sedimentation Rate 44 mm/hr (0-15)
--- NOTE | 2020-04-18 14:29 | PC.PHAR ---
pt states her son ramila takes care of her medications-ramila went over medications and states he is unsure if the pt is taking xanax 0.25mg tid prn filled on 03/23/2020 7d/s or if she is taking clonazepam 0.5mg tid prn filled on 03/25/2020 30d/s-pts son states he is unsure if the pt is taking the 150mg po daily or just taking 100mg daily of zoloft-ext med history shows last filled for 150mg daily on 03/25/2020 and 50mg daily filled on 02/13/2020 90d/s-pts son also states the pt is taking 20mg of xarelto-pts son states he is unsure if the pt has started the stiolto respimat it was filled on 04/16/20-pts son also states he is unsure if the pt is still using the nicotine patches
--- NOTE | 2020-04-18 14:32 | P.PN_ITS ---
Subjective Subjective: Interval history: Patient was examined this morning, she denies any fevers overnight, no diarrhea, no abdominal pain, no dysuria, no hematuria, no cough, no shortness of breath, no sore throat, no lightheadedness, no dizziness, no headache, no blurry vision, no neck stiffness, but does have right-sided neck pain after she received radiation therapy, she thought that the pain i was more related to muscle spasms as she was sitting in the radiation machine and her neck was up against a metal bar, no known exposure to COVID-19, has never tested positive for COVID-19, does have a PICC line placed for chemotherapy, has never had a PICC line infection Vitals/I&O/Wt Last Vital Signs Temp 97.5 F L 04/18/20 11:16 Pulse 78 04/18/20 12:15 Resp 16 04/18/20 12:15 BP 143/65 04/18/20 11:16 Pulse Ox 99 04/18/20 12:15 04/17/20 04/18/20 04/18/20 22:59 06:59 14:59 Intake Total 2150 / 2150 Balance 2150 / 2150 Weight last 48 hrs Weight 57.153 kg Weight 57.153 kg Physical Exam Const: COMMON NORMALS: no acute distress and patient oriented x3 HENMT: COMMON NORMALS: normocephalic HEAD & SCALP: normocephalic Neck/C-Spine: COMMON NORMALS: no JVD Resp: COMMON NORMALS: normal respiratory effort, No retractions, No use of accessory muscles and clear to auscultation bilaterally AUSCULTATION: clear to auscultation bilaterally Cardio: COMMON NORMALS: no JVD, regular rate, regular rhythm, S1 normal heart sound present and S2 normal heart sound present RATE: regular rate RHYTHM: regular rhythm HEART SOUNDS: S1 normal heart sound present and S2 normal heart sound present GI: COMMON NORMALS: Normal to inspection, nondistended, normoactive bowel sounds present, Soft to palpation, non-tender, No hepatosplenomegaly present, no masses and no bruits PALPATION: Yes Soft to palpation and Yes No hepatosplenomegaly present Extremity: COMMON NORMALS: capillary refill normal, no clubbing, cyanosis or edema, no calf tenderness and no pedal edema Neuro: COMMON NORMALS: patient oriented x3 Psych: COMMON NORMALS: mental status grossly normal Data : 04/17/20 18:53 04/17/20 18:53 Micro: Microbiology 04/17/20 20:46 Blood Culture - Preliminary Blood SPECIMEN COLLECTED 04/17/20 20:44 Blood Culture - Preliminary Blood SPECIMEN COLLECTED A&P Assessment and plan (1) Fever of unknown origin (FUO): -T-max 101 -Is on 2 L, which is her home oxygen -White blood cell count 3.6, lymphopenia, -ESR 44, CRP 40.4, pro-Amor 0.67 -Hepatitis panel was negative -HIV pending -Does have transaminitis, elevated alk phos -liver ultrasound was negative for evidence of acute cystitis -CT scan of the abdomen pelvis did not show any significant evidence of intra or extra biliary duct dilatation obstruction or stones -No renal stones -CT of the chest did not show any focal pneumonia, but did show infiltrates to the right upper lobe -Rapid flu and rapid Covid were negative -Covid PCR pending -Does have a PICC line in place, possible source of infection -Does have right-sided neck pain, she thinks is more related to getting chemo therapy and resting her neck against the machine -Echocardiogram ordered -Blood cultures pending sputum cultures pending urine cultures pending -On vancomycin and Levaquin -He is immunocompromised for adenocarcinoma of the right lung, with SVC syndrome, did have a history of postobstructive pneumonia in the past -Monitor clinical status closely -Monitor for fevers -Full code -Lovenox for DVT prophylaxis Status: Acute (2) Hypoxia: -Is chronically on 2 L patient tells me, Status: Acute (3) Adenocarcinoma, lung: -Stage IIIb -With SVC syndrome -Has evidence of metastasis to lymph nodes -History of postobstructive atelectasis and pneumonia Status: Acute Qualifiers: Laterality: right Qualified Code(s): C34.91 - Malignant neoplasm of unspecified part of right bronchus or lung (4) Transaminitis: As above. She has no upper quadrant pain, perhaps minimal tenderness to palpation. Hepatitis panel negative. Assessed with perihepatic ultrasound of hepatobiliary structures and vasculature. She is status post cholecystectomy. Possible effect of chemotherapy. 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
--- NOTE | 2020-04-18 14:58 | PC.NURSE ---
Patient states she is leaving AMA. Risk went over with patient. Dr. Amor notified. Patient spoke with Dr. Amor on the phone. AMA paper signed by patient. PICC line in place upon discharge.
--- NOTE | 2020-04-18 14:58 | PC.RESP ---
SMOKING CESSATION INFORMATION SENT TO PATIENT.
[2020-04-18 18:28] LABS: HIV 1 & 2 Antibody Non-Reactive (Non-Reactiv); HIV 1 & 2 Antigen Non-Reactive (Non-Reactiv)
[2020-04-19 17:49] LABS: Coronavirus Test Green County Not Detected
--- NOTE | 2020-05-12 16:27 | PM.DCS ---
Discharge Providers Date of Admission: 04/18/20 01:45 Date of Discharge: May 12, 2020 Attending Provider at Admission: Arben Weston Attending Provider at Discharge: Eulalio Amor MD Primary Care Provider: Jayna Schmitt MD Diagnoses at Discharge Discharge Diagnosis (1) Fever of unknown origin (FUO): Status: Acute (2) Hypoxia: Status: Acute (3) Adenocarcinoma, lung: Status: Acute Qualifiers: Laterality: right Qualified Code(s): C34.91 - Malignant neoplasm of unspecified part of right bronchus or lung (4) Transaminitis: Status: Acute (5) Atrial flutter with rapid ventricular response: Status: Acute Reason for Visit Reason for Visit: FEVER 101, CANCER PT Hospital Course Hospital Course This is a 65-year-old female with past medical history of COPD, lung adenocarcinoma, undergoing chemotherapy, radiation therapy, who presents to [facility] due to malaise Patient was admitted to [facility] due to fever of unknown origin -T-max 101 -Is on 2 L, which is her home oxygen -White blood cell count 3.6, lymphopenia, -ESR 44, CRP 40.4, pro-Amor 0.67 -Hepatitis panel was negative -HIV pending -Does have transaminitis, elevated alk phos -liver ultrasound was negative for evidence of acute cystitis -CT scan of the abdomen pelvis did not show any significant evidence of intra or extra biliary duct dilatation obstruction or stones -No renal stones -CT of the chest did not show any focal pneumonia, but did show infiltrates to the right upper lobe -Rapid flu and rapid Covid were negative -Covid PCR pending -Does have a PICC line in place, possible source of infection -Does have right-sided neck pain, she thinks is more related to getting chemotherapy and resting her neck against the machine -Echocardiogram ordered -Blood cultures pending sputum cultures pending urine cultures pending -On vancomycin and Levaquin -He is immunocompromised for adenocarcinoma of the right lung, with SVC syndrome, did have a history of postobstructive pneumonia in the past -Patient was started on broad-spectrum antibiotic therapy, clinically monitored, blood cultures monitored, monitor for fevers -However patient wanted to go home, she did not want to be in the hospital, left AGAINST MEDICAL ADVICE -Advised of the risks of leaving the hospital AGAINST MEDICAL ADVICE, morbidity and mortality associated, significant risk of infection, significant risk of sepsis, significant risk of septic shock, voiced understanding, all questions answered, left AGAINST MEDICAL ADVICE -Until her Covid test comes back, she should continue to self isolate, socially distance, hand wash, face mask Physical Exam Const: COMMON NORMALS: no acute distress and patient oriented x3 HENMT: COMMON NORMALS: normocephalic HEAD & SCALP: normocephalic Neck/C-Spine: COMMON NORMALS: no JVD Resp: COMMON NORMALS: normal respiratory effort, No retractions, No use of accessory muscles and clear to auscultation bilaterally AUSCULTATION: clear to auscultation bilaterally Cardio: COMMON NORMALS: no JVD, regular rate, regular rhythm, S1 normal heart sound present and S2 normal heart sound present RATE: regular rate RHYTHM: regular rhythm HEART SOUNDS: S1 normal heart sound present and S2 normal heart sound present GI: COMMON NORMALS: Normal to inspection, nondistended, normoactive bowel sounds present, Soft to palpation, non-tender, No hepatosplenomegaly present, no masses and no bruits PALPATION: Yes Soft to palpation and Yes No hepatosplenomegaly present Extremity: COMMON NORMALS: capillary refill normal, no clubbing, cyanosis or edema, no calf tenderness and no pedal edema Neuro: COMMON NORMALS: patient oriented x3 Psych: COMMON NORMALS: mental status grossly normal Discharge Data Data Completed and Pending: Completed Studies During Hospitalization Category Date Time Status CT angio chest w abd pel w con Stat Cat Scan 04/17/20 20:51 Completed XR chest 1V jorge ble [id number] Urgent Exams 04/17/20 17:58 Completed CV echo complete* [id number] Routine Ultrasound 04/18/20 09:51 Completed [place] abdomen limite d [id number] Routine Ultrasound 04/18/20 05:39 Completed Vitals: Last Vital Signs Temp 97.5 F L 04/18/20 11:16 Pulse 78 04/18/20 15:03 Resp 16 04/18/20 15:03 BP 143/65 04/18/20 11:16 Pulse Ox 99 04/18/20 15:03 Discharge Plan Discharge Patient Disposition: Left Against Medical Advice Condition: Stable Prescriptions: No Action Stiolto Respimat 2.5-2.5 mcg/actuation mist 2 puff inhalation DAILY 30 Days Qty: 4 RF: 4 nystatin 100,000 unit/mL suspension 10 ml PO QID RF: 0 sertraline [Zoloft] 100 mg tablet 150 mg PO DAILY Qty: 45 RF: 2 metoprolol succinate 25 mg tablet extended release 24 hr 25 mg PO Q12H RF: 0 clonazepam 0.5 mg tablet 0.5 mg PO TID PRN (Reason: Anxiety) RF: 0 Tylenol Extra Strength 500 mg Tablet 500 - 1,000 mg PO PRN RF: 0 alprazolam 0.25 mg tablet 0.25 mg PO TID PRN (Reason: Anxiety) RF: 0 ibuprofen 200 mg Tablet 200 - 400 mg PO PRN RF: 0 lorazepam 1 mg tablet 0.5 - 1 mg PO TID PRN (Reason: Nausea) RF: 0 naproxen 500 mg Tablet 500 mg PO PRN RF: 0 lactulose 10 gram/15 mL solution 15 ml PO TID PRN (Reason: Constipation) RF: 0 Xarelto 20 mg tablet 20 mg PO DAILY RF: 0 Vitamin D3 100 mcg (4,000 unit) Capsule 100 mcg PO DAILY RF: 0 albuterol sulfate [ProAir HFA] 90 mcg/actuation HFA aerosol inhaler 2 puff INHALATION QID PRN (Reason: Shortness Of Breath) RF: 0 ipratropium-albuterol 0.5 mg-3 mg(2.5 mg base)/3 mL solution for nebulization 3 ml INHALATION TID PRN (Reason: Shortness Of Breath) RF: 0 prochlorperazine maleate 10 mg tablet 10 mg PO Q4H PRN (Reason: Nausea) RF: 0 pantoprazole 40 mg tablet,delayed release (DR/EC) 40 mg PO DAILY RF: 0 triamcinolone acetonide 0.1 % ointment 1 applic TOPICAL TID PRN (Reason: unknown) RF: 0 dexamethasone 4 mg tablet See Rx Instructions .ROUTE .COMPLEX RF: 0 nicotine 21 mg/24 hr patch 24 hour 21 mg transdermal Q24H RF: 0 codeine-guaifenesin [Virtussin AC] 10-100 mg/5 mL liquid 5 - 10 ml PO Q4H PRN (Reason: Cough) RF: 0 oxycodone 5 mg tablet 5 - 10 mg PO Q4H PRN (Reason: Pain) RF: 0 Referrals: Jayna Schmitt MD [Primary Care Provider] - Discharge Diet: Advance as tolerated Discharge Activity: Resume usual activity Discharge Attestations Time Spent in Discharge Care*: greater than 30 min Quality Metrics Clinical Quality Measures During this hospital stay, did patient experience: None Coding Level of Care Code Acute [employer] for [employer] Fwd Diagnoses Fever of unknown origin (FUO) R50.9 Hypoxia R09.02 Adenocarcinoma, lung C34.91 Laterality: right Transaminitis R74.01 Atrial flutter with rapid ventricular response I48.92
== END 2020-04-18 15:03 | disposition left against medical advice (07) | DRG 872 ==
LOC: ER 23:30 → MEDSURG 04-18 01:45
PROVIDERS: Nurse Practitioner Family; Admitting Provider Internal Medicine; Emergency Provider Family Medicine; PCP Internal Medicine; Visit Provider Family Medicine
DX: A41.9 Sepsis, unspecified organism (principal); C34.11 Malignant neoplasm of upper lobe, right bronchus or lung; C77.9 Secondary and unspecified malignant neoplasm of lymph node, unspecified; E87.1 Hypo-osmolality and hyponatremia; D84.821 Immunodeficiency due to drugs; I48.92 Unspecified atrial flutter; J44.9 Chronic obstructive pulmonary disease, unspecified; Z79.899 Other long term (current) drug therapy; Z90.49 Acquired absence of other specified parts of digestive tract; Z95.828 Presence of other vascular implants and grafts; M17.12 Unilateral primary osteoarthritis, left knee; F41.0 Panic disorder [episodic paroxysmal anxiety]; Z86.718 Personal history of other venous thrombosis and embolism; F17.210 Nicotine dependence, cigarettes, uncomplicated; Z79.51 Long term (current) use of inhaled steroids; Z79.01 Long term (current) use of anticoagulants; Z79.891 Long term (current) use of opiate analgesic; Z53.29 Procedure and treatment not carried out because of patient's decision for other reasons
CPT/HCPCS: 12345; 36415; 36592; 71045; 71275; 74177; 76705; 77386; 80053; 80074; 81003; 83605; 83880; 84145; 85025; 85651; 86140; 87040; 87426; 87635; 87804; 87806; 93005; 93306; 94640; 99213; 99215; 99283; J1885; J1956; J3370; J7030; J7050; Q9967

== ENCOUNTER 2020-05-09 08:25 | Outpatient (RCR) | payer MEDICARE, MEDICAID, SELFPAY ==
[2020-04-21 11:17] LABS: Alanine Aminotransferase 37 U/L (0-33); Albumin Level 3.8 g/dL (3.5-5.2); Alkaline Phosphatase 138 IU/L (35-105); Aspartate Amino Transferase 19 U/L (0-32); Blood Urea Nitrogen 16 mg/dL (8-23); Calcium 9.5 mg/dL (8.5-10.5); Carbon Dioxide 26 mmol/L (22-29); Chloride 93 mmol/L (98-107); Globulin 3.2 g/dL (1.3-4.6); Glucose 142 mg/dL (65-115); Osmolality Calculated 268 mOsm/kg (285-295); Sodium 127 mmol/L (136-145); Total Bilirubin 0.4 mg/dL (0.15-1.2)
[2020-04-21 11:22] LABS: Anion Gap 13.6 (5-19); Potassium 5.6 mmol/L (3.5-5.1)
[2020-04-21 11:32] LABS: Basophils % 0.8 %; Hematocrit 32.6 % (37.0-47.0); Hemoglobin 10.2 g/dL (11.5-15.3); Lymphocytes # 0.2 10^3/uL (0.8-4.8); Lymphocytes % 8.9 %; Mean Corpuscular HGB Conc 31.3 g/dL (30.0-36.0); Mean Corpuscular Hemoglobin 27.3 pg (28.0-34.0); Mean Corpuscular Volume 87.2 fL (81-99); Mean Platelet Volume 10.2 fL (7.4-10.4); Monocytes # 0.2 10^3/uL (0.2-0.9); Monocytes % 6.8 %; Neutrophils # 1.81 10^3/uL (1.8-7.7); Nucleated Red Blood Cells % 0 %; Platelet Count 190 10^3/cmm (130-400); Red Blood Count 3.74 10^6/uL (4.1-5.3); Red Cell Distribution Width 25.1 % (12.1-15.1); White Blood Count 2.4 10^3/uL (4.0-10.0)
[2020-04-21 11:38] LABS: Neutrophils % 83.5 %
--- NOTE | 2020-04-22 14:21 | ONCRAD TMN_ITS ---
Radiation OncologyTreatment Management Note Patient Name: Iram Denis Date of : 1955 Date of Service: 04/22/2020 Attending Physician: Alf Yanes M.D. Iram Denis is a 65-year-old white female diagnosed with a clinical stage IIIB (T4N2) adenocarcinoma of the right hilum and upper lobe of the lung. She has received 50 Gy of a prescribed 60 Springer with an intensity modulated radiotherapy plan utilizing a step and shoot treatment technique. She receives weekly carboplatin (AUC 2) and paclitaxel (50 mg/m???). Upon review of systems, she did not report any new complaints. On physical examination, the patient weighed 127 lbs. Her temperature was 98.3 ???F with a blood pressure of 137/86 mmHg. The pulse was 88 bpm and her respiratory rate was 20. Oxygen saturation with 2 L O2 via nasal cannula was 99%. There was no erythema within the treatment griffiths. Auscultation of the posterior lung griffiths identified bronchial breath sounds. Continue thoracic radiotherapy as prescribed. Signed by: Dr. Alf Yanes 04/22/2020 2:20:01 PM
--- NOTE | 2020-04-22 19:10 | ONC FU_ITS ---
Dr. Almeida Patient Follow-Up Note Patient: Iram Denis < Unit #: [id number]: 1955 Dicatated By: Jeff Almeida M.D.Date of Visit:Apr 21, 2020 Onc Med Follow-up/Prog Note Chief Complaint: Lung cancer. History of Present Illness: This is a 65-year-old woman with adenocarcinoma involving the upper lobe of the right lung, by clinical evaluation stage IIIB (T4, N2, M0). She had presented with hemoptysis in association with worsening shortness of breath and cough. Her chest x-ray on 01/30/2020 showed a 10 cm right hilar/suprahilar mass extending into the right upper lobe consistent with a primary lung malignancy. This was noted to probably invade the mediastinum. Chest CT on 02/04/2020 showed large right hilar and suprahilar mass measuring 11.9 x 6.1 x 7.1 cm. There was slight narrowing of the distal main pulmonary artery and there was narrowing of the adjacent segmental and subsegmental right upper lobe pulmonary branches. There was encasement of the right mainstem bronchus with associated narrowing. There was invasion into the mediastinum and adjacent mediastinal fat, and there was mild narrowing of the distal trachea. There was narrowing with encasement of the right superior vena cava which appeared partially thrombosed. There was evidence of tumor thrombus in the mid segment of the SVC measuring approximately 4.1 cm. There was conglomerate right hilar lymphadenopathy. Interstitial infiltrates throughout the right lung appeared suspicious for lymphangitic metastases. On 02/08/2020 she underwent bronchoscopy/EBUS with endobronchial biopsy from the right upper lobe and with FNA biopsy of station 4R lymph node. Pathology on the station 4R lymph node biopsy was consistent with metastatic adenocarcinoma, favoring lung primary. The tumor cells were TTF-1 positive. PET/CT on 02/09/2020 showed FDG avid right upper lobe mass measuring 12.1 x 5.6 cm. There was mild activity in a 1.5 cm subcarinal lymph node, consistent with metastatic disease. Postobstructive atelectasis with right upper and middle lobe interstitial thickening was suspicious for carcinomatosis. I had seen her initially on 02/20/2020. As her disease appeared to be localized by clinical evaluation, she was recommended to undergo radiation concurrently with weekly carboplatin/paclitaxel chemotherapy. As she had symptoms of impending superior vena cava obstruction and she had poor peripheral venous access, she received several fractions of radiation prior to her week 1 chemotherapy infusion which was administered on 03/12/2020. With that treatment she was able to complete the full dose of paclitaxel, but the carboplatin was interrupted due to development of acute shortness of breath and pulmonary congestion. An infusion reaction was suspected, but given her underlying lung disease and locally advanced malignancy, I was not certain of that. In any case, with additional steroid and pulmonary nebulizers her symptoms improved, and she was able to continue her radiation. On 03/19/2020 she she continue with her week 2 chemotherapy, limited to paclitaxel alone. She tolerated it well. At that point she was showing significant clinical improvement, and she also appeared to be showing significant response by follow-up CT imaging. With her week 3 chemotherapy on 03/27/2020, she restarted paclitaxel in combination with carboplatin, and she tolerated it well. She continued with weekly for treatment on 04/07/2020. On 04/18/2020 she was admitted to the hospital after presenting to the emergency room with fever and shortness of breath. She was just mildly neutropenic. CT pulmonary angiogram showed no evidence of pulmonary embolism. She was noted to have a large right upper lobe mass extending along the mediastinal border with encasement of the pulmonary artery branches to the right middle lobe. The mass was noted to involve the lower superior vena cava and right superior pulmonary vein, but it was noted to be significantly smaller compared to the previous study with much less involvement of the superior vena cava and of the pulmonary vein. She continued anticoagulation with apixaban. She is seen for a follow-up visit. She has not been feeling as good generally following her recent hospitalization. She is tired a lot and she has very little activity. ECOG score is 3. Her appetite was good, but it has now declined. Her fever resolved, but she says she had sweating last night. She says her breathing is not too bad now. She has just occasional cough. She does not complain of chest pain. She has had nausea and she also has had acid reflux. Her bowel function has improved. She has no complaints. She has no significant joint or bone pain and she has no focal neurologic symptoms. Medications: Cholecalciferol 1 Tablet (of 25 mcg ) Oral daily, [employer] Nicotine 1 Patch(es) (of 21 mg/24hr) Patch 24 Hr Transdermal q 24 hours, Ferrous Sulfate 1 Tablet (of 325 (65 fe) mg) Oral daily, Ipratropium-Albuterol 3 mL (of 0.5-2.5 (3) mg/3mL) Solution Inhalation four times a day PRN, KlonoPIN 1 Tablet (of 0.5 mg) Oral daily, oxyCODONE HCl 1 - 2 Tablet (of 5 mg) Oral q 4 hours, Rivaroxaban 1 Tablet (of 20 mg) Oral daily, Saline Nasal [place] 1 (0.65 %) Solution Nasal daily, Zoloft 1 Tablet (of 50 mg) Oral daily Allergies: No Known Allergies. Vital Signs: Performed on Apr 21, 2020 11:45 Height - 66.00 in Weight - 127.3 lbs (HIGH) BSA - 1.65 sq.m BMI - 20.55 Temperature - 98.7 F Pulse - 88 /min Respiration - 18 /min BP - 113/75 mm(hg) O2 Sat - 98 % Pain - 0 Physical Examination: Constitutional - She appears generally weak and frail, Eyes - Sclerae nonicteric. Conjunctivae clear, ENMT - No lesions noted in the oral cavity, Hematologic/Lymphatic - No cervical, clavicular, or axillary adenopathy, Respiratory - Lungs sound clear but with diminished air movement bilaterally, Cardiovascular - Heart rhythm is regular. There is no murmur, gallop, or rub noted, Abdomen - Soft. Liver and spleen are not enlarged. There is no abdominal mass or ascites noted and there is no inguinal adenopathy, Extremities - No edema, Neurologic - No focal neurologic deficits noted. Lab/Imaging: Test performed on Apr 21, 2020 10:22 Sodium 127 mmol/L Potassium 5.6 mmol/L Chloride 93 mmol/L CO2 26 mmol/L Anion Gap 13.6 BUN 16 mg/dL Creatinine 0.6 mg/dL Cr Clearance (Est) 84.08 mL/min eGFR 100.0 mL/min Glucose 142 mg/dL Osmolality - Calculated 268 mOsm/kg Calcium 9.5 mg/dL Protein, Total 7.0 g/dL Albumin 3.8 g/dL Globulin 3.2 g/dL Bilirubin, Total 0.4 mg/dL ALT (SGPT) 37 U/L AST (SGOT) 19 U/L Alkaline Phosphatase 138 IU/L WBC 2.4 10 3/uL RBC 3.74 10 6/uL HGB 10.2 g/dL HCT 32.6 % MCV 87.2 fL MCH 27.3 pg MCHC 31.3 g/dL RDW 25.1 % Platelet Count 190 10 3/cmm MPV 10.2 fL Neutrophils 1.81 10 3/uL Lymphocytes 0.2 10 3/uL Monocytes 0.2 10 3/uL Eosinophils 0.0 10 3/uL Basophils 0.0 10 3/uL Neutrophil % 83.5 % Lymphocyte % 8.9 % Monocyte % 6.8 % Eosinophil % 0.0 % Basophils % 0.8 % NRBC % 0 % Historic Problem List: 1. Adenocarcinoma involving the upper lobe of the right lung, by clinical evaluation stage at least IIIB (T4, N2, M0). 2. She underwent bronchoscopy/EBUS with right upper lobe endobronchial biopsy and with FNA biopsy of station 4R lymph node on 02/08/2020. 3. Hypertension. 4. COPD. 5. She has history of migraine headaches. 6. She has remote history of cervical cancer, treated with cone biopsy. 7. Anxiety/depression. 8. Nicotine dependence. Problems Addressed with this Encounter and Plan: 1. Adenocarcinoma involving the upper lobe of the right lung, by clinical evaluation stage at least IIIB (T4, N2, M0). She has undergone ongoing radiation concurrently with weekly carboplatin/paclitaxel chemotherapy. Her chemotherapy was complicated by suspected infusion reaction with her initial dose of carboplatin. The carboplatin was held at week 2, but reinstituted with her weeks 3 and 4 treatments. She has had evidence of significant response and significant clinical improvement during her chemoradiation. However, on 04/17/2019 she required admission to the hospital for shortness of breath/hypoxia and fever. She has improved on empiric antibiotic therapy, but since then there has been decline in her performance status, and she remains mildly neutropenic. As such, I think it would be best to hold chemotherapy at this time, but she will continue radiation. I will review the CT images with the radiologist, as she will potentially be eligible to continue treatment with maintenance immunotherapy after her radiation is completed. I will tentatively plan a follow-up visit in 3 weeks, but her CBC and chemistry studies will be repeated in 1 week. 2. 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 She will continue anticoagulation with apixaban. 3. She has severe underlying COPD. It is being managed adequately with her current medication. Signed By: Jeff Almeida M.D. <<Signature on File>>
[2020-04-28 15:36] LABS: Alanine Aminotransferase 18 U/L (0-33); Albumin Level 3.6 g/dL (3.5-5.2); Alkaline Phosphatase 128 IU/L (35-105); Aspartate Amino Transferase 16 U/L (0-32); Blood Urea Nitrogen 10 mg/dL (8-23); Calcium 8.9 mg/dL (8.5-10.5); Carbon Dioxide 27 mmol/L (22-29); Chloride 93 mmol/L (98-107); Glucose 96 mg/dL (65-115); Osmolality Calculated 265 mOsm/kg (285-295); Sodium 128 mmol/L (136-145); Total Bilirubin 0.4 mg/dL (0.15-1.2); Total Protein 6.6 g/dL (6.6-8.7)
[2020-04-28 15:37] LABS: Basophils % 0.5 %; Eosinophils # 0.2 10^3/uL (0.0-0.8); Eosinophils % 3.1 %; Hematocrit 32.2 % (37.0-47.0); Hemoglobin 10.3 g/dL (11.5-15.3); Lymphocytes # 0.3 10^3/uL (0.8-4.8); Lymphocytes % 4.7 %; Mean Corpuscular Hemoglobin 27.6 pg (28.0-34.0); Mean Corpuscular Volume 86.3 fL (81-99); Mean Platelet Volume 9.7 fL (7.4-10.4); Monocytes # 0.8 10^3/uL (0.2-0.9); Monocytes % 15.1 %; Neutrophils # 4.01 10^3/uL (1.8-7.7); Neutrophils % 71.9 %; Nucleated Red Blood Cells % 0 %; Platelet Count 180 10^3/cmm (130-400); Red Blood Count 3.73 10^6/uL (4.1-5.3); Red Cell Distribution Width 24.8 % (12.1-15.1); White Blood Count 5.6 10^3/uL (4.0-10.0)
[2020-05-08 11:57] LABS: Basophils % 0.8 %; Eosinophils # 0.5 10^3/uL (0.0-0.8); Eosinophils % 9.8 %; Hematocrit 31.5 % (37.0-47.0); Hemoglobin 10.1 g/dL (11.5-15.3); Lymphocytes # 0.4 10^3/uL (0.8-4.8); Lymphocytes % 7.6 %; Mean Corpuscular HGB Conc 32.1 g/dL (30.0-36.0); Mean Corpuscular Hemoglobin 27.3 pg (28.0-34.0); Mean Corpuscular Volume 85.1 fL (81-99); Mean Platelet Volume 9.9 fL (7.4-10.4); Monocytes # 0.6 10^3/uL (0.2-0.9); Monocytes % 11.7 %; Neutrophils # 3.62 10^3/uL (1.8-7.7); Neutrophils % 69.1 %; Nucleated Red Blood Cells % 0 %; Platelet Count 254 10^3/cmm (130-400); Red Cell Distribution Width 23.4 % (12.1-15.1); White Blood Count 5.2 10^3/uL (4.0-10.0)
[2020-05-08] MEDS: sodium chloride 0.9% 500 ML 999 ML IV (14:50)
[2020-05-08] MEDS: levofloxacin-dextrose 5 % 500 MG/100 ML PREMIX 100 MG IV (14:50)
== END 2020-05-11 23:59 | disposition home or self-care (01) ==
LOC: ONCMED 08:25
PROVIDERS: Absent Provider Radiology Radiation Oncology; PCP Internal Medicine; Visit Provider Internal Medicine Medical Oncology
DX: Z51.0 Encounter for antineoplastic radiation therapy (principal); C34.11 Malignant neoplasm of upper lobe, right bronchus or lung; D70.1 Agranulocytosis secondary to cancer chemotherapy; T45.1X5A Adverse effect of antineoplastic and immunosuppressive drugs, initial encounter; I82.210 Acute embolism and thrombosis of superior vena cava; J44.9 Chronic obstructive pulmonary disease, unspecified; I10 Essential (primary) hypertension; F41.8 Other specified anxiety disorders; D50.8 Other iron deficiency anemias; Z79.01 Long term (current) use of anticoagulants; Z85.41 Personal history of malignant neoplasm of cervix uteri; Z79.899 Other long term (current) drug therapy
CPT/HCPCS: 36415; 36592; 77336; 77386; 80053; 85025; 87040; 96361; 96365; 99214; J1956; J7040

== ENCOUNTER 2020-05-19 08:00 | Outpatient (RCR) | payer MEDICARE, MEDICAID, SELFPAY ==
[2020-05-12 14:58] LABS: Basophils % 0.7 %; Eosinophils # 0.3 10^3/uL (0.0-0.8); Eosinophils % 4.9 %; Hematocrit 29.6 % (37.0-47.0); Hemoglobin 10.1 g/dL (11.5-15.3); Lymphocytes # 0.4 10^3/uL (0.8-4.8); Lymphocytes % 6.8 %; Mean Corpuscular HGB Conc 34.1 g/dL (30.0-36.0); Mean Corpuscular Volume 93.7 fL (81-99); Mean Platelet Volume 10.1 fL (7.4-10.4); Monocytes # 0.7 10^3/uL (0.2-0.9); Monocytes % 11.7 %; Neutrophils # 4.29 10^3/uL (1.8-7.7); Neutrophils % 74.7 %; Nucleated Red Blood Cells % 0 %; Platelet Count 259 10^3/cmm (130-400); Red Blood Count 3.16 10^6/uL (4.1-5.3); Red Cell Distribution Width 25.3 % (12.1-15.1); White Blood Count 5.7 10^3/uL (4.0-10.0)
[2020-05-12 16:07] LABS: Alanine Aminotransferase 15 U/L (0-33); Albumin Level 3.1 g/dL (3.5-5.2); Alkaline Phosphatase 158 IU/L (35-105); Aspartate Amino Transferase 23 U/L (0-32); Blood Urea Nitrogen 12 mg/dL (8-23); Calcium 9.3 mg/dL (8.5-10.5); Carbon Dioxide 25 mmol/L (22-29); Chloride 93 mmol/L (98-107); Globulin 3.5 g/dL (1.3-4.6); Glucose 101 mg/dL (65-115); Osmolality Calculated 266 mOsm/kg (285-295); Sodium 128 mmol/L (136-145); Thyroid Stimulating Hormone 1.77 uIU/mL (0.27-4.20); Total Bilirubin 0.3 mg/dL (0.15-1.2); Total Protein 6.6 g/dL (6.6-8.7)
[2020-05-12 16:15] LABS: Anion Gap 14.7 (5-19); Potassium 4.7 mmol/L (3.5-5.1)
--- NOTE | 2020-05-12 17:02 | ONC FU_ITS ---
Dr. Almeida Patient Follow-Up Note Patient: Iram Denis Unit #: [id number]: 1955 Dicatated By: Jeff Almeida M.D.Date of Visit:May 12, 2020 Onc Med Follow-up/Prog Note Chief Complaint: Lung cancer. History of Present Illness: This is a 65-year-old woman with adenocarcinoma involving the upper lobe of the right lung, by clinical evaluation stage IIIB (T4, N2, M0). She had presented with hemoptysis in association with worsening shortness of breath and cough. Her chest x-ray on 01/30/2020 showed a 10 cm right hilar/suprahilar mass extending into the right upper lobe consistent with a primary lung malignancy. This was noted to probably invade the mediastinum. Chest CT on 02/04/2020 showed large right hilar and suprahilar mass measuring 11.9 x 6.1 x 7.1 cm. There was slight narrowing of the distal main pulmonary artery and there was narrowing of the adjacent segmental and subsegmental right upper lobe pulmonary branches. There was encasement of the right mainstem bronchus with associated narrowing. There was invasion into the mediastinum and adjacent mediastinal fat, and there was mild narrowing of the distal trachea. There was narrowing with encasement of the right superior vena cava which appeared partially thrombosed. There was evidence of tumor thrombus in the mid segment of the SVC measuring approximately 4.1 cm. There was conglomerate right hilar lymphadenopathy. Interstitial infiltrates throughout the right lung appeared suspicious for lymphangitic metastases. On 02/08/2020 she underwent bronchoscopy/EBUS with endobronchial biopsy from the right upper lobe and with FNA biopsy of station 4R lymph node. Pathology on the station 4R lymph node biopsy was consistent with metastatic adenocarcinoma, favoring lung primary. The tumor cells were TTF-1 positive. PET/CT on 02/09/2020 showed FDG avid right upper lobe mass measuring 12.1 x 5.6 cm. There was mild activity in a 1.5 cm subcarinal lymph node, consistent with metastatic disease. Postobstructive atelectasis with right upper and middle lobe interstitial thickening was suspicious for carcinomatosis. I had seen her initially on 02/20/2020. As her disease appeared to be localized by clinical evaluation, she was recommended to undergo radiation concurrently with weekly carboplatin/paclitaxel chemotherapy. As she had symptoms of impending superior vena cava obstruction and she had poor peripheral venous access, she received several fractions of radiation prior to her week 1 chemotherapy infusion which was administered on 03/12/2020. With that treatment she was able to complete the full dose of paclitaxel, but the carboplatin was interrupted due to development of acute shortness of breath and pulmonary congestion. An infusion reaction was suspected, but given her underlying lung disease and locally advanced malignancy, I was not certain of that. In any case, with additional steroid and pulmonary nebulizers her symptoms improved, and she was able to continue her radiation. On 03/19/2020 she she continue with her week 2 chemotherapy, limited to paclitaxel alone. She tolerated it well. At that point she was showing significant clinical improvement, and she also appeared to be showing significant response by follow-up CT imaging. With her week 3 chemotherapy on 03/27/2020, she restarted paclitaxel in combination with carboplatin, and she tolerated it well. She continued with week 4 treatment on 04/07/2020. On 04/18/2020 she was admitted to the hospital after presenting to the emergency room with fever and shortness of breath. She was just mildly neutropenic. CT pulmonary angiogram showed no evidence of pulmonary embolism. She was noted to have a large right upper lobe mass extending along the mediastinal border with encasement of the pulmonary artery branches to the right middle lobe. The mass was noted to involve the lower superior vena cava and right superior pulmonary vein, but it was noted to be significantly smaller compared to the previous study with much less involvement of the superior vena cava and of the pulmonary vein. She continued anticoagulation with apixaban. Following discharge from the hospital she was able to continue with her radiation. She completed treatment on 04/29/2020 to a total dose of 6000 cGy administered in 30 fractions. She is seen for a follow-up visit. With the improvement on her restaging CT scans, she was felt to be eligible to begin maintenance immunotherapy with durvalumab. However, she has been feeling terrible. She has continued to have intermittent low-grade fever and she has just been feeling very weak generally. She says she can't hardly do nothing at home. Her ECOG score is 3. Her appetite is not very good. She sometimes has sweating at night. She has had dry mouth and her throat has been sore. Her breathing is not good, even with oxygen on. She has having cough. She does not complain of chest pain. She has had some nausea. Her bowels have been back and forth. Yesterday she had diarrhea. Bladder function has been okay, but she does complain that her feet are swelling. She has musculoskeletal pain which comes and goes. It is adequately managed with medication. She has had some headache, but not bad. She does complain of some dizziness. She has no focal neurologic symptoms. Medications: Cholecalciferol 1 Tablet (of 25 mcg ) Oral daily, [employer] Nicotine 1 Patch(es) (of 21 mg/24hr) Patch 24 Hr Transdermal q 24 hours, Ferrous Sulfate 1 Tablet (of 325 (65 fe) mg) Oral daily, Ipratropium-Albuterol 3 mL (of 0.5-2.5 (3) mg/3mL) Solution Inhalation four times a day PRN, KlonoPIN 1 Tablet (of 0.5 mg) Oral daily, oxyCODONE HCl 1 - 2 Tablet (of 5 mg) Oral q 4 hours, Rivaroxaban 1 Tablet (of 20 mg) Oral daily, Saline Nasal [place] 1 (0.65 %) Solution Nasal daily, Zoloft 1 Tablet (of 50 mg) Oral daily Allergies: No Known Allergies. Vital Signs: Performed on May 12, 2020 15:40 Height - 66.00 in Temperature - 98.1 F (LOW) Pulse - 108 /min (HIGH) Respiration - 20 /min BP - 150/85 mm(hg) (HIGH) O2 Sat - 95 % (LOW) Pain - 0 Fatigue - 8 Physical Examination: Constitutional - She appears generally weakl, Eyes - Sclerae nonicteric. Conjunctivae clear, ENMT - No lesions noted in the oral cavity, Hematologic/Lymphatic - No cervical, clavicular, or axillary adenopathy, Respiratory - Lungs sound clear but with diminished air movement on the right, Cardiovascular - Heart rhythm is regular with a mild tachycardia. There is no murmur, gallop, or rub noted, Abdomen - Soft. Liver and spleen are not enlarged. There is no abdominal mass or ascites noted and there is no inguinal adenopathy, Extremities - Mild edema, Neurologic - She is generally weak. She does not appear to have any focal neurologic deficit. Lab/Imaging: Test performed on May 12, 2020 14:35 WBC 5.7 10 3/uL RBC 3.16 10 6/uL HGB 10.1 g/dL HCT 29.6 % MCV 93.7 fL MCH 32.0 pg MCHC 34.1 g/dL RDW 25.3 % Platelet Count 259 10 3/cmm MPV 10.1 fL Neutrophils 4.29 10 3/uL Lymphocytes 0.4 10 3/uL Monocytes 0.7 10 3/uL Eosinophils 0.3 10 3/uL Basophils 0.0 10 3/uL Neutrophil % 74.7 % Lymphocyte % 6.8 % Monocyte % 11.7 % Eosinophil % 4.9 % Basophils % 0.7 % NRBC % 0 % Test performed on May 08, 2020 14:45 Blood Culture R3 (Preliminary) Problem List: 1. Adenocarcinoma involving the upper lobe of the right lung, by clinical evaluation stage at least IIIB (T4, N2, M0). 2. She underwent bronchoscopy/EBUS with right upper lobe endobronchial biopsy and with FNA biopsy of station 4R lymph node on 02/08/2020. 3. Hypertension. 4. COPD. 5. She has history of migraine headaches. 6. She has remote history of cervical cancer, treated with cone biopsy. 7. Anxiety/depression. 8. Nicotine dependence. Problems Addressed with this Encounter and Plan: 1. Adenocarcinoma involving the upper lobe of the right lung, by clinical evaluation stage at least IIIB (T4, N2, M0). She has undergone ongoing radiation concurrently with weekly carboplatin/paclitaxel chemotherapy. Her chemotherapy was complicated by suspected infusion reaction with her initial dose of carboplatin. The carboplatin was held at week 2, but reinstituted with her weeks 3 and 4 treatments. She had significant clinical improvement during her chemoradiation. However, on 04/17/2019 she required admission to the hospital for shortness of breath/hypoxia and fever. Her repeat CT scans showed significant improvement in the right upper lobe lung cancer compared to the March 2020 CT. In particular, there was much less involvement of the superior vena cava and of the pulmonary vein. She initially improved on empiric antibiotic therapy. However, since then she has continued to have intermittent fever. She has been very weak generally, and she has had significant decline in her performance status. The cause/source of the fever and of her general decline is uncertain. She has had 2 sets of blood cultures, both of which are negative. However, at this point I think it would be prudent to remove her PICC line, and that will be done today. I will have her continue additional antibiotic therapy with Levaquin 500 mg daily for 7 days. I am also going to start dexamethasone 4 mg twice daily pending outcome of the repeat brain MRI. She will have further evaluation as indicated. In the meantime, I am going to defer starting her maintenance durvalumab, and I will also defer her Port-A-Cath placement until we are certain the fever has resolved. 2. 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 It has shown improvement by followup CT scan. She continues anticoagulation with apixaban. 3. She has severe underlying COPD. Signed By: Jeff Almeida M.D. <<Signature on File>>
--- NOTE | 2020-05-19 08:01 | MR_ITS ---
WS: [id number] MRI HEAD WITH CONTRAST TECHNIQUE: Sagittal T1, T2 axial, T2 axial FLAIR, axial susceptibility weighted imaging, axial diffus ion weighted images, and coronal T2 images were obtained. Pre and post-T1 axial and post T1 coronal i mages. ADC and FSPGR images. CLINICAL INFORMATION: LUNG CANCER;WEAKNESS COMPARISON: MRI February 27, 2020 and PET/CT February 09, 2020 FINDINGS: No evidence of restricted diffusion to suggest acute ischemia. Ventricular system and basal cisterns are patent. Moderate small vessel changes with moderate parenchymal volume loss. Normal posterior fos sa. Normal vascular flow voids at the skull base. No extra-axial fluid collections. No evidence of ma ss or mass effect. Paranasal sinuses and mastoid air cells are well aerated. No hemosiderin on the walker sceptibility weighted images. Normal optic chiasm and pituitary infundibulum. No evidence of enhancing intracranial metastatic dise ase. No evidence of mass or mass effect. Dural venous sinuses are normal. Enhancing right frontal kina varial lesions likely atypical hemangioma or venous goode is unchanged. MR/MR head wo/w con [id number] IMPRESSION: 1. No restricted diffusion to suggest acute ischemia. 2. Moderate small vessel changes with moderate parenchymal volume loss. 3. No evidence of enhancing intracranial metastatic disease. 4. Enhancing bony lesion involving the right frontal calvarium likely atypical cavernous hemangioma or venous goode unchanged.
[2020-05-19] MEDS: gadobenate dimeglumine 20 mL vial IV (09:15)
== END 2020-06-08 23:59 | disposition home or self-care (01) ==
LOC: ONCMED 08:00
PROVIDERS: Absent Provider Radiology Radiation Oncology; PCP Internal Medicine; Visit Provider Internal Medicine Medical Oncology
DX: C34.11 Malignant neoplasm of upper lobe, right bronchus or lung (principal); R53.1 Weakness; I10 Essential (primary) hypertension; J44.9 Chronic obstructive pulmonary disease, unspecified; F41.8 Other specified anxiety disorders; F17.200 Nicotine dependence, unspecified, uncomplicated; I82.210 Acute embolism and thrombosis of superior vena cava; Z79.899 Other long term (current) drug therapy; Z85.41 Personal history of malignant neoplasm of cervix uteri; Z79.01 Long term (current) use of anticoagulants
CPT/HCPCS: 36592; 70553; 80053; 84443; 85025; 87070; 87075; 87205; 99214; A9577

== ENCOUNTER 2020-06-03 11:03 | Outpatient (CLI) | payer MEDICARE, MEDICAID, SELFPAY ==
--- NOTE | 2020-06-03 11:07 | XR_ITS ---
WS: [id number] Exam: XR chest 2V* [id number] Date/Time of Exam: 06/03/2020 11:35 AM Reason For Exam: LUNG CANCER, COUGH Comparison 04/17/2020. Right hilar mass is unchanged in appearance. The lungs are otherwise clear and fully inflated. Normal heart size. No pleural effusions. Elevated right diaphragm unchanged. Bony structures are intact. XR/XR chest 2V* [id number] IMPRESSION: 1. Right hilar mass showing no change. 2. The remaining lung zones are clear. No infiltrates or pneumothorax
== END 2020-06-03 11:04 | disposition home or self-care (01) ==
LOC: RAD 11:06
PROVIDERS: PCP Internal Medicine; Visit Provider Internal Medicine
DX: R05 Cough (principal); C34.90 Malignant neoplasm of unspecified part of unspecified bronchus or lung
CPT/HCPCS: 71046

== ENCOUNTER 2020-06-07 09:40 | Emergency (ER) | payer MEDICARE, MEDICAID, SELFPAY ==
[2020-06-07 10:13] VITALS: BP 133/89; PULSE 102; RESP 18; TEMP 37.1; O2SAT 98; BMI 22.6
--- NOTE | 2020-06-07 10:13 | XRR_ITS ---
PROCEDURE INFORMATION: Exam: XR Chest Exam date and time: 06/07/2020 10:34 AM Age: 65 years old Clinical indication: Cough and dyspnea; Additional info: Dyspnea/cough TECHNIQUE: Imaging protocol: XR of the chest Views: 1 view. COMPARISON: CR XR chest 2V* [id number] 06/03/2020 11:36 AM FINDINGS: Lungs: Unremarkable. No consolidation. Pleural spaces: See Diaphragm finding. Heart/Mediastinum: Unremarkable. No cardiomegaly. Diaphragm: Mild elevation right hemidiaphragm. Probable small subpulmonic effusion. Bones/joints: Unremarkable. Soft tissues: Soft tissue density in the right suprahilar region concerning for lymphadenopathy and or mass. XR/XR chest 1V portable [id number] IMPRESSION: 1. Soft tissue density in the right suprahilar region concerning for lymphadenopathy and or mass. Previously noted. 2. Mild elevation right hemidiaphragm. Probable small subpulmonic effusion.
--- NOTE | 2020-06-07 10:25 | ED_ITS ---
HPI - SOB/Dyspnea General: Chief Complaint: Shortness of Breath/Dyspnea Stated Complaint: SOB, LUNG CANCER PT Time Seen by Provider: 06/07/20 10:07 History of Present Illness: HPI Narrative: 65-year-old female with a history of lung CA. She comes in complaining of increasing shortness of breath she did not feel as good yesterday but then this morning was significantly worse. She is needing more oxygen than usual she usually is on just 2 L now is needing up to 3. She did see Dr. Neri yesterday has oral and possibly esophageal candidiasis was started on a swish and spit oral as well as Diflucan tablets. Reading Dr. Almeida's note she has had some success with some regression of the lung tumor she did have some difficulty initially with reaction to chemo and then subsequently had a fever that they were not able to track the origin of. Her port was removed her blood cultures were all negative she was on a course of Levaquin for a times currently not taking any oral antibiotics. States her baseline cough is about at her norm and has not increased. She denies any chest pain at this time. She has a large ecchymotic area infraumbilical she cannot recall any specific trauma or any injections there. She has some swelling of her face few weeks ago she was started on dexamethasone daily and is still on that. MD elicited complaint: shortness of breath Pertinent past history: other (lung Ca) Onset (ago): hour(s) Context: recent illness Timing: constant Severity: moderate Exacerbating factors: exertion and coughing Relieving factors: oxygen and rest Known history of: other (lung ca) Associated symptoms: Reports cough, hemoptysis, myalgias, nausea and orthopnea; Deny abdominal pain, chest congestion, chest pain, diaphoresis, dizziness, extremity pain, fever(s), lightheadedness, palpitations, paresthesias, polydipsia, polyuria, rash, sense of impending doom, syncope or vomiting Treatment prior to arrival: oxygen Review of Systems Const: Denies: fever(s) or diaphoresis ENMT: Denies: throat pain, ear or mastoid pain, nasal discharge or nasal congestion Card: Reports: orthopnea; Denies: chest pain, palpitations, lightheadedness or syncope Resp: Reports: hemoptysis; Denies: chest congestion GI: Reports: nausea; Denies: abdominal pain or vomiting : Denies: flank pain, difficulty voiding, dysuria, urinary frequency or urinary urgency Musc: Denies: extremity pain Skin/Breast: Denies: rash or pruritus Neuro: Denies: dizziness Endo: Denies: polydipsia PFSH ED PFSH: Medical History Hyponatremia Lung cancer Lung mass Osteoarthritis of left knee Panic disorder [episodic paroxysmal anxiety] Port-A-Cath in place 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 Surgical History S/P bronchoscopy Family History Other CAD (coronary artery disease) Cancer Dementia Hypertension Lung disease Stroke Denies family history of Diabetes Hyperlipidemia Chronic kidney disease (CKD) Family history of premature coronary artery disease Social History Smoking and tobacco status: current every day smoker cigarettes Years cigarettes smoked: 44 [ Other cigarette details: Hx of 1 PPD x 45 Years ] Quit status (tobacco): considering quitting Smoking risk assessment/counseling performed?: Yes Tobacco counseling given: counseling >3 minutes Alcohol intake: current Alcohol intake frequency: few times a month Alcohol type: beer Counseling given: No Counseling given: No Lives independently: Yes Household members: none Marital status: Current occupational status: retired History of recent travel: No Current gender identity: Female Physical Exam Const: COMMON NORMALS: average body habitus, patient oriented x3 and alert GENERAL APPEARANCE: cooperative, comfortable, well kempt and well developed NUTRITIONAL APPEARANCE: obese ORIENTATION/CONSCIOUSNESS: Yes awake, Yes oriented to person and Yes oriented to place HENMT: COMMON NORMALS: normocephalic, atraumatic and EAC's normal HEAD & SCALP: normocephalic and atraumatic EXTERNAL AUDITORY CANAL: EAC's normal Neck/C-Spine: COMMON NORMALS: no meningeal signs Resp: COMMON NORMALS: normal respiratory effort, No retractions, No use of accessory muscles and clear to auscultation bilaterally AUSCULTATION: clear to auscultation bilaterally Cardio: COMMON NORMALS: regular rate and regular rhythm RATE: regular rate RHYTHM: regular rhythm HEART SOUNDS: no murmurs GI: COMMON NORMALS: Normal to inspection, nondistended, normoactive bowel sounds present, Soft to palpation and No hepatosplenomegaly present PALPATION: Yes Soft to palpation and Yes No hepatosplenomegaly present : COMMON NORMALS: Yes no CVA tenderness BLADDER/KIDNEY EXAM: Yes no CVA tenderness Back/Pelvis: COMMON NORMALS: no CVA tenderness LUMBAR SPINE/LOWER BACK: Yes normal to inspection Extremity: COMMON NORMALS: no clubbing, cyanosis or edema, no calf tenderness and no pedal edema Neuro: COMMON NORMALS: patient oriented x3 SENSORIUM/ORIENTATION: Yes alert, Yes oriented to person and Yes oriented to place MENINGEAL SIGNS: Yes no meningeal signs Psych: APPEARANCE: Yes well kempt Skin: COMMON NORMALS: no rashes or lesions noted and turgor normal GENERAL SKIN EXAM: no rashes or lesions noted and turgor normal Course Vital Signs: Vital signs: Vital Signs Temperature 98.8 F 06/07/20 10:13 Pulse Rate 94 06/07/20 15:32 Respiratory Rate 21 H 06/07/20 15:32 Blood Pressure 156/106 06/07/20 15:32 Pulse Oximetry 100 06/07/20 15:32 MDM - SOB/Dyspnea MDM Narrative: Medical decision making narrative: Reviewed results with the patient. Encourage her to use mag citrate for constipation. Her swelling of the face and feet and think is in large part due to the steroids. Follow-up with oncology as scheduled. Return if has further problems. Is maintaining her sats on her usual amount of oxygen at time of discharge. Lab Data: Labs: Lab Results 06/07/20 06/07/20 06/07/20 Range/Units 10:22 10:47 10:47 WBC 19.4 H (4.0-10.0) 10^3/ uL RBC 4.08 L (4.1-5.3) 10^6/u L Hgb 12.0 (11.5-15.3) g/dL Hct 36.2 L (37.0-47.0) % MCV 88.7 (81-99) fL MCH 29.4 (28.0-34.0) pg MCHC 33.1 (30.0-36.0) g/dL RDW 22.9 H (12.1-15.1) % Plt Count 229 (130-400) 10^3/c mm MPV 9.3 (7.4-10.4) fL Neut % (Auto) 87.9 % Lymph % (Auto) 0.5 % [place] % (Auto) 4.3 % Eos % (Auto) 0.0 % Baso % (Auto) 0.3 % Neut # (Auto) 17.08 H (1.8-7.7) 10^3/u L Lymph # (Auto) 0.1 L (0.8-4.8) 10^3/u L [place] # (Auto) 0.8 (0.2-0.9) 10^3/u L Eos # (Auto) 0.0 (0.0-0.8) 10^3/u L Baso # (Auto) 0.1 (0.0-0.1) 10^3/u L Nucleated RBC % (a uto) 0.1 % Nucleated RBCs # 0.0 /100WBC PT (12.1-14.9) SECO NDS INR (0.8-1.2) APTT (23.9-36.7) SECO NDS D-Dimer (0-0.59) ug/mIFE U Specimen Type Arterial Sample Site Brachial, left ABG pH 7.51 H (7.35-7.45) ABG pCO2 38.1 (35-45) mmHg ABG pO2 146.0 H (80.0-100.0) mmH g ABG HCO3 30.1 H (22-26) mmol/L ABG O2 Saturation 99.8 ABG Base Excess 6.6 H (-2.0-2.0) mmol/ L Morris Test Pos A-a O2 Gradient 4.3 L (5-10) mmHg Hematocrit 38.4 (37-47) % Hgb O2 Saturation 96.1 (95-100) % Carboxyhemoglobin 3.0 (0.4-20.1) %THgb Methemoglobin 0.7 (0.4-1.5) % Total Hemoglobin 12.5 (12-16) g/dL Sodium 125.0 L 126 L (131-143) mmol/L Potassium 5.0 5.1 (3.5-5.0) mmol/L Glucose 102.0 98 (70-115) mg/dL Ionized Calcium 1.2 (1.1-1.4) mmol/L O2 Delivery Device Nc O2 Liters/Min 3.0 % FiO2 32.0 % Advertising Account Executive ID Cak Chloride 90 L (98-107) mmol/L Carbon Dioxide 28 (22-29) mmol/L Anion Gap 13.1 (5-19) BUN 39 H (8-23) mg/dL Creatinine 0.5 (0.5-0.9) mg/dL GFR Calculation 123.4 (90-130) mL/min Calculated Osmolal ity 271 L (285-295) mOsm/k g Calcium 8.7 (8.5-10.5) mg/dL Total Bilirubin 0.3 (0.15-1.2) mg/dL AST 19 (0-32) U/L ALT 60 H (0-33) U/L Alkaline Phosphata se 123 H (35-105) IU/L Total Protein 5.7 L (6.6-8.7) g/dL Albumin 3.6 (3.5-5.2) g/dL Globulin 2.1 (1.3-4.6) g/dL Urine Color (Yellow) Urine Appearance (CLEAR) Urine pH (5-7) Ur Specific Gravit y (1.005-1.030) Urine Protein (Negative) Urine Glucose (UA) (Normal) Urine Ketones (Negative) Urine Blood (Negative) Urine Nitrate (Negative) Urine Bilirubin (Negative) Urine Urobilinogen (Negative) mg/dL Ur Leukocyte Stephanie ase (Negative) SARS-CoV-2 Ag (Rap id) (Negative) 06/07/20 06/07/20 06/07/20 Range/Units 10:47 10:47 10:47 WBC (4.0-10.0) 10^3/ uL RBC (4.1-5.3) 10^6/u L Hgb (11.5-15.3) g/dL Hct (37.0-47.0) % MCV (81-99) fL MCH (28.0-34.0) pg MCHC (30.0-36.0) g/dL RDW (12.1-15.1) % Plt Count (130-400) 10^3/c mm MPV (7.4-10.4) fL Neut % (Auto) % Lymph % (Auto) % [place] % (Auto) % Eos % (Auto) % Baso % (Auto) % Neut # (Auto) (1.8-7.7) 10^3/u L Lymph # (Auto) (0.8-4.8) 10^3/u L [place] # (Auto) (0.2-0.9) 10^3/u L Eos # (Auto) (0.0-0.8) 10^3/u L Baso # (Auto) (0.0-0.1) 10^3/u L Nucleated RBC % (a uto) % Nucleated RBCs # /100WBC PT 21.10 H (12.1-14.9) SECO NDS INR 1.75 H (0.8-1.2) APTT 27.8 (23.9-36.7) SECO NDS D-Dimer 0.47 (0-0.59) ug/mIFE U Specimen Type Sample Site ABG pH (7.35-7.45) ABG pCO2 (35-45) mmHg ABG pO2 (80.0-100.0) mmH g ABG HCO3 (22-26) mmol/L ABG O2 Saturation ABG Base Excess (-2.0-2.0) mmol/ L Morris Test A-a O2 Gradient (5-10) mmHg Hematocrit (37-47) % Hgb O2 Saturation (95-100) % Carboxyhemoglobin (0.4-20.1) %THgb Methemoglobin (0.4-1.5) % Total Hemoglobin (12-16) g/dL Sodium (131-143) mmol/L Potassium (3.5-5.0) mmol/L Glucose (70-115) mg/dL Ionized Calcium (1.1-1.4) mmol/L O2 Delivery Device O2 Liters/Min % FiO2 % Advertising Account Executive ID Chloride (98-107) mmol/L Carbon Dioxide (22-29) mmol/L Anion Gap (5-19) BUN (8-23) mg/dL Creatinine (0.5-0.9) mg/dL GFR Calculation (90-130) mL/min Calculated Osmolal ity (285-295) mOsm/k g Calcium (8.5-10.5) mg/dL Total Bilirubin (0.15-1.2) mg/dL AST (0-32) U/L ALT (0-33) U/L Alkaline Phosphata se (35-105) IU/L Total Protein (6.6-8.7) g/dL Albumin (3.5-5.2) g/dL Globulin (1.3-4.6) g/dL Urine Color Yellow (Yellow) Urine Appearance Clear (CLEAR) Urine pH 7 (5-7) Ur Specific Gravit y 1.010 (1.005-1.030) Urine Protein Neg (Negative) Urine Glucose (UA) Norm (Normal) Urine Ketones Negative (Negative) Urine Blood Neg (Negative) Urine Nitrate Negative (Negative) Urine Bilirubin Neg (Negative) Urine Urobilinogen Norm (Negative) mg/dL Ur Leukocyte Stephanie ase Negative (Negative) SARS-CoV-2 Ag (Rap id) (Negative) 06/07/20 Range/Units 13:49 WBC (4.0-10.0) 10^3/ uL RBC (4.1-5.3) 10^6/u L Hgb (11.5-15.3) g/dL Hct (37.0-47.0) % MCV (81-99) fL MCH (28.0-34.0) pg MCHC (30.0-36.0) g/dL RDW (12.1-15.1) % Plt Count (130-400) 10^3/c mm MPV (7.4-10.4) fL Neut % (Auto) % Lymph % (Auto) % [place] % (Auto) % Eos % (Auto) % Baso % (Auto) % Neut # (Auto) (1.8-7.7) 10^3/u L Lymph # (Auto) (0.8-4.8) 10^3/u L [place] # (Auto) (0.2-0.9) 10^3/u L Eos # (Auto) (0.0-0.8) 10^3/u L Baso # (Auto) (0.0-0.1) 10^3/u L Nucleated RBC % (a uto) % Nucleated RBCs # /100WBC PT (12.1-14.9) SECO NDS INR (0.8-1.2) APTT (23.9-36.7) SECO NDS D-Dimer (0-0.59) ug/mIFE U Specimen Type Sample Site ABG pH (7.35-7.45) ABG pCO2 (35-45) mmHg ABG pO2 (80.0-100.0) mmH g ABG HCO3 (22-26) mmol/L ABG O2 Saturation ABG Base Excess (-2.0-2.0) mmol/ L Morris Test A-a O2 Gradient (5-10) mmHg Hematocrit (37-47) % Hgb O2 Saturation (95-100) % Carboxyhemoglobin (0.4-20.1) %THgb Methemoglobin (0.4-1.5) % Total Hemoglobin (12-16) g/dL Sodium (131-143) mmol/L Potassium (3.5-5.0) mmol/L Glucose (70-115) mg/dL Ionized Calcium (1.1-1.4) mmol/L O2 Delivery Device O2 Liters/Min % FiO2 % Advertising Account Executive ID Chloride (98-107) mmol/L Carbon Dioxide (22-29) mmol/L Anion Gap (5-19) BUN (8-23) mg/dL Creatinine (0.5-0.9) mg/dL GFR Calculation (90-130) mL/min Calculated Osmolal ity (285-295) mOsm/k g Calcium (8.5-10.5) mg/dL Total Bilirubin (0.15-1.2) mg/dL AST (0-32) U/L ALT (0-33) U/L Alkaline Phosphata se (35-105) IU/L Total Protein (6.6-8.7) g/dL Albumin (3.5-5.2) g/dL Globulin (1.3-4.6) g/dL Urine Color (Yellow) Urine Appearance (CLEAR) Urine pH (5-7) Ur Specific Gravit y (1.005-1.030) Urine Protein (Negative) Urine Glucose (UA) (Normal) Urine Ketones (Negative) Urine Blood (Negative) Urine Nitrate (Negative) Urine Bilirubin (Negative) Urine Urobilinogen (Negative) mg/dL Ur Leukocyte Stephanie ase (Negative) SARS-CoV-2 Ag (Rap id) Negative (Negative) Discharge Plan Discharge Patient Disposition: Home Clinical Impression: Lung cancer, Constipation Condition: Stable Prescriptions: No Action Stiolto Respimat 2.5-2.5 mcg/actuation mist 2 puff inhalation DAILY 30 Days Qty: 4 RF: 4 clonazepam 0.5 mg tablet 0.5 mg PO TID PRN (Reason: Anxiety) Qty: 90 RF: 2 nystatin 100,000 unit/mL suspension 10 ml PO QID RF: 0 metoprolol succinate 25 mg tablet extended release 24 hr 25 mg PO Q12H RF: 0 alprazolam 0.25 mg tablet 0.25 mg PO TID PRN (Reason: Anxiety) RF: 0 ibuprofen 200 mg Tablet 200 - 400 mg PO PRN RF: 0 lorazepam 1 mg tablet 0.5 - 1 mg PO TID PRN (Reason: Nausea) RF: 0 lactulose 10 gram/15 mL solution 15 ml PO TID PRN (Reason: Constipation) RF: 0 Xarelto 20 mg tablet 20 mg PO DAILY@0600 RF: 0 Vitamin D3 100 mcg (4,000 unit) Capsule 100 mcg PO DAILY RF: 0 albuterol sulfate [ProAir HFA] 90 mcg/actuation HFA aerosol inhaler 2 puff INHALATION QID PRN (Reason: Shortness Of Breath) RF: 0 ipratropium-albuterol 0.5 mg-3 mg(2.5 mg base)/3 mL solution for nebulization 3 ml INHALATION TID PRN (Reason: Shortness Of Breath) RF: 0 prochlorperazine maleate 10 mg tablet 10 mg PO Q4H PRN (Reason: Nausea) RF: 0 pantoprazole 40 mg tablet,delayed release (DR/EC) 40 mg PO DAILY@0600 RF: 0 triamcinolone acetonide 0.1 % ointment 1 applic TOPICAL TID PRN (Reason: unknown) RF: 0 dexamethasone 4 mg tablet See Rx Instructions .ROUTE .COMPLEX RF: 0 codeine-guaifenesin [Virtussin AC] 10-100 mg/5 mL liquid 5 - 10 ml PO Q4H PRN (Reason: Cough) RF: 0 oxycodone 5 mg tablet 5 - 10 mg PO Q4H PRN (Reason: Pain) RF: 0 fluconazole 150 mg tablet 150 mg PO DAILY@0600 RF: 0 Zoloft 100 mg tablet 150 mg PO DAILY@0600 RF: 0 amiodarone 200 mg tablet 200 mg PO DAILY@0600 RF: 0 lisinopril 10 mg tablet 10 mg PO DAILY@0600 RF: 0 furosemide 20 mg tablet 20 mg PO DAILY@0600 RF: 0 levofloxacin 500 mg tablet 500 mg PO DAILY@0600 RF: 0 Tylenol Extra Strength 500 mg Tablet 500 - 1,000 mg PO Q6H PRN (Reason: Pain) RF: 0 Discharge Orders: Discharge ED (Routine); Ordered 06/07/20 Ordered By: Aubrey Guthrie Referrals: Jayna Schmitt MD [Primary Care Provider] - Discharge Diet: Usual diet Discharge Activity: Limit activity as instructed Patient Instructions: Opioid Safety Activity Restrictions/Additional Instructions: Follow-up with Dr. Almeida next week continue to take the medications Dr. Neri prescribed as well as the antibiotics prescribed today. Will call with culture results when available. For worsening or change in symptoms return. Coding Level of Care Code ED Manager Shipping for Barbara Fwmanju 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
[2020-06-07 10:34] LABS: ABG PCO2 38.1 mmHg (35-45); ABG PH Result 7.51 (7.35-7.45); Alveolar-Arterial Oxygen Gradi 4.3 mmHg (5-10); Arterial Blood Gas Hematocrit 38.4 % (37-47); Base Excess ABG 6.6 mmol/L (-2.0-2.0); Blood Gas Allen Test Pos; Blood Gas Operator Identificat CAK; Blood Gas Sample Site Brachial, left; Blood Gas Sample Type Arterial; HCO3 ABG 30.1 mmol/L (22-26); HGB O2 Sat 96.1 % (95-100); Ionized Calcium Level - ABG 1.2 mmol/L (1.1-1.4); Methemoglobin 0.7 % (0.4-1.5); Oxygen Device NC; Oxygen Saturation ABG 99.8; Total Hemoglobin 12.5 g/dL (12-16)
[2020-06-07 11:05] LABS: Basophils # 0.1 10^3/uL (0.0-0.1); Basophils % 0.3 %; Hematocrit 36.2 % (37.0-47.0); Lymphocytes # 0.1 10^3/uL (0.8-4.8); Lymphocytes % 0.5 %; Mean Corpuscular HGB Conc 33.1 g/dL (30.0-36.0); Mean Corpuscular Hemoglobin 29.4 pg (28.0-34.0); Mean Corpuscular Volume 88.7 fL (81-99); Mean Platelet Volume 9.3 fL (7.4-10.4); Monocytes # 0.8 10^3/uL (0.2-0.9); Monocytes % 4.3 %; Neutrophils # 17.08 10^3/uL (1.8-7.7); Neutrophils % 87.9 %; Nucleated Red Blood Cells % 0.1 %; Platelet Count 229 10^3/cmm (130-400); Red Blood Count 4.08 10^6/uL (4.1-5.3); Red Cell Distribution Width 22.9 % (12.1-15.1); White Blood Count 19.4 10^3/uL (4.0-10.0)
[2020-06-07 11:22] LABS: INR 1.75 (0.8-1.2); Partial Thromboplastin Time 27.8 SECONDS (23.9-36.7)
[2020-06-07 11:24] LABS: Add Urine Microscopic? NO
[2020-06-07 11:27] VITALS: BP 140/103; PULSE 101; RESP 20; O2SAT 98
[2020-06-07 11:40] LABS: Alanine Aminotransferase 60 U/L (0-33); Albumin Level 3.6 g/dL (3.5-5.2); Alkaline Phosphatase 123 IU/L (35-105); Anion Gap 13.1 (5-19); Aspartate Amino Transferase 19 U/L (0-32); Blood Urea Nitrogen 39 mg/dL (8-23); Calcium 8.7 mg/dL (8.5-10.5); Carbon Dioxide 28 mmol/L (22-29); Chloride 90 mmol/L (98-107); Globulin 2.1 g/dL (1.3-4.6); Glomerular Filtration Rate 123.4 mL/min (90-130); Glucose 98 mg/dL (65-115); Osmolality Calculated 271 mOsm/kg (285-295); Potassium 5.1 mmol/L (3.5-5.1); Sodium 126 mmol/L (136-145); Total Bilirubin 0.3 mg/dL (0.15-1.2); Total Protein 5.7 g/dL (6.6-8.7)
[2020-06-07 11:47] LABS: Bilirubin Urine Neg (Negative); Blood Urine Neg (Negative); Glucose Urine UA Norm (Normal); Ketones Urine Negative (Negative); Leukocyte Esterase Urine Negative (Negative); Nitrate Urine Negative (Negative); Protein Urine Neg (Negative); Urine Appearance Clear (CLEAR); Urine Color Yellow (Yellow); Urobilinogen Urine Norm (Negative); pH Urine 7 (5-7)
[2020-06-07 11:55] LABS: Slide Review Slide Review Perform
[2020-06-07] MEDS: levofloxacin-dextrose 5 % 500 MG/100 ML PREMIX 100 MG IV (12:48)
[2020-06-07] MEDS: sodium chloride 0.9% 1,000 ML 999 ML IV (12:48)
[2020-06-07 14:02] LABS: D Dimer 0.47 ug/mIFEU (0-0.59)
[2020-06-07 15:07] VITALS: BP 156/111; PULSE 93; RESP 20; O2SAT 100
[2020-06-07 15:25] LABS: SARS Covid-2 Antigen Negative (Negative)
[2020-06-07 15:32] VITALS: BP 156/106; PULSE 94; RESP 21; O2SAT 100
== END 2020-06-07 15:38 | disposition home or self-care (01) ==
PROVIDERS: Emergency Provider Family Medicine; PCP Internal Medicine
DX: C34.90 Malignant neoplasm of unspecified part of unspecified bronchus or lung (principal); K59.00 Constipation, unspecified; F17.210 Nicotine dependence, cigarettes, uncomplicated
CPT/HCPCS: 36415; 36600; 71045; 80051; 80053; 81003; 82330; 82805; 85025; 85378; 85610; 85730; 87040; 87426; 96365; 96375; 99283; J1956; J7030

== ENCOUNTER 2020-06-17 05:27 | Outpatient (RCR) | payer MEDICARE, MEDICAID, SELFPAY ==
[2020-06-09 10:56] LABS: Basophils # 0.1 10^3/uL (0.0-0.1); Basophils % 0.3 %; Hematocrit 37.3 % (37.0-47.0); Hemoglobin 12.5 g/dL (11.5-15.3); Lymphocytes # 0.1 10^3/uL (0.8-4.8); Lymphocytes % 0.5 %; Mean Corpuscular HGB Conc 33.5 g/dL (30.0-36.0); Mean Corpuscular Volume 89.7 fL (81-99); Mean Platelet Volume 9.3 fL (7.4-10.4); Monocytes # 0.8 10^3/uL (0.2-0.9); Monocytes % 3.7 %; Neutrophils # 19.57 10^3/uL (1.8-7.7); Neutrophils % 88.1 %; Nucleated Red Blood Cells % 0 %; Platelet Count 242 10^3/cmm (130-400); Red Blood Count 4.16 10^6/uL (4.1-5.3); Red Cell Distribution Width 22.5 % (12.1-15.1); White Blood Count 22.2 10^3/uL (4.0-10.0)
[2020-06-09 11:04] LABS: Alanine Aminotransferase 55 U/L (0-33); Albumin Level 3.7 g/dL (3.5-5.2); Alkaline Phosphatase 121 IU/L (35-105); Anion Gap 13.6 (5-19); Aspartate Amino Transferase 18 U/L (0-32); Blood Urea Nitrogen 29 mg/dL (8-23); Calcium 8.9 mg/dL (8.5-10.5); Carbon Dioxide 28 mmol/L (22-29); Chloride 87 mmol/L (98-107); Globulin 2.2 g/dL (1.3-4.6); Glomerular Filtration Rate 159.7 mL/min (90-130); Glucose 96 mg/dL (65-115); Osmolality Calculated 264 mOsm/kg (285-295); Potassium 4.6 mmol/L (3.5-5.1); Sodium 124 mmol/L (136-145); Total Bilirubin 0.5 mg/dL (0.15-1.2); Total Protein 5.9 g/dL (6.6-8.7)
[2020-06-09 11:29] LABS: Slide Review Slide Review Perform
--- NOTE | 2020-06-15 13:57 | ONC FU_ITS ---
[facility] Patient Note Patient: Iram Denis Unit #: [id number]: 1955 Dictated By: Shreya MultaniDate of Visit: Jun 09, 2020 Onc MED Follow-Up/Prog Note Chief Complaint: Lung cancer. History of Present Illness: Ms Denis is a 65-year-old woman with adenocarcinoma involving the upper lobe of the right lung, by clinical evaluation stage IIIB (T4, N2, M0). She had presented with hemoptysis in association with worsening shortness of breath and cough. Her chest x-ray on 01/30/2020 showed a 10 cm right hilar/suprahilar mass extending into the right upper lobe consistent with a primary lung malignancy. This was noted to probably invade the mediastinum. Chest CT on 02/04/2020 showed large right hilar and suprahilar mass measuring 11.9 x 6.1 x 7.1 cm. There was slight narrowing of the distal main pulmonary artery and there was narrowing of the adjacent segmental and subsegmental right upper lobe pulmonary branches. There was encasement of the right mainstem bronchus with associated narrowing. There was invasion into the mediastinum and adjacent mediastinal fat, and there was mild narrowing of the distal trachea. There was narrowing with encasement of the right superior vena cava which appeared partially thrombosed. There was evidence of tumor thrombus in the mid segment of the SVC measuring approximately 4.1 cm. There was conglomerate right hilar lymphadenopathy. Interstitial infiltrates throughout the right lung appeared suspicious for lymphangitic metastases. On 02/08/2020 she underwent bronchoscopy/EBUS with endobronchial biopsy from the right upper lobe and with FNA biopsy of station 4R lymph node. Pathology on the station 4R lymph node biopsy was consistent with metastatic adenocarcinoma, favoring lung primary. The tumor cells were TTF-1 positive. PET/CT on 02/09/2020 showed FDG avid right upper lobe mass measuring 12.1 x 5.6 cm. There was mild activity in a 1.5 cm subcarinal lymph node, consistent with metastatic disease. Postobstructive atelectasis with right upper and middle lobe interstitial thickening was suspicious for carcinomatosis. Dr Almeida had seen her initially on 02/20/2020. As her disease appeared to be localized by clinical evaluation, she was recommended to undergo radiation concurrently with weekly carboplatin/paclitaxel chemotherapy. As she had symptoms of impending superior vena cava obstruction and she had poor peripheral venous access, she received several fractions of radiation prior to her week 1 chemotherapy infusion which was administered on 03/12/2020. With that treatment she was able to complete the full dose of paclitaxel, but the carboplatin was interrupted due to development of acute shortness of breath and pulmonary congestion. An infusion reaction was suspected, but given her underlying lung disease and locally advanced malignancy, Dr Almeida was not certain of that. In any case, with additional steroid and pulmonary nebulizers her symptoms improved, and she was able to continue her radiation. On 03/19/2020 she she continue with her week 2 chemotherapy, limited to paclitaxel alone. She tolerated it well. At that point she was showing significant clinical improvement, and she also appeared to be showing significant response by follow-up CT imaging. With her week 3 chemotherapy on 03/27/2020, she restarted paclitaxel in combination with carboplatin, and she tolerated it well. She continued with week 4 treatment on 04/07/2020. On 04/18/2020 she was admitted to the hospital after presenting to the emergency room with fever and shortness of breath. She was just mildly neutropenic. CT pulmonary angiogram showed no evidence of pulmonary embolism. She was noted to have a large right upper lobe mass extending along the mediastinal border with encasement of the pulmonary artery branches to the right middle lobe. The mass was noted to involve the lower superior vena cava and right superior pulmonary vein, but it was noted to be significantly smaller compared to the previous study with much less involvement of the superior vena cava and of the pulmonary vein. She continued anticoagulation with apixaban. Following discharge from the hospital she was able to continue with her radiation. She completed treatment on 04/29/2020 to a total dose of 6000 cGy administered in 30 fractions. She was seen for a follow-up visit. With the improvement on her restaging CT scans, she was felt to be eligible to begin maintenance immunotherapy with durvalumab. However, she had been feeling terrible. She had continued to have intermittent low-grade fever and she just been feeling very weak generally. Her ECOG score was 3. Mrs Denis had removal of her PICC line despite normal blood cultures. She was placed on Levaquin. Her fever has resolved. Mrs. Denis was seen in the emergency room on 06/07/2020 with complaints of increased shortness of breath and higher O2 requirements. She also had concerns of bruising above her umbilicus. She has a large area on her lower abdomen around her umbilicus that is purple in appearance that does appear to be a significant bruise. She is currently on Eliquis and has been on Lovenox in the past. She denies any other areas of bleeding. She does have a large ecchymotic spot on her right lateral thigh. She denies any trauma or injury. She did have follow-up chest x-ray on 06/01/2020 in the ER visit. She has a soft tissue density in the right suprahilar region concerning for lymphadenopathy or mass. This is previously noted. She has mild elevation right hemodiafiltration???probable small subpulmonic effusion. She presents today with multiple concerns. She is having trouble swallowing and has sores in her mouth and lip. She is still concerned about the bruising on her abdomen. She states is been there for at least the last 3 to 4 days. Her family is concerned that she is bleeding internally. She also having some lower extremity swelling especially in her feet. She complains of persistent constipation. She states she has had some urinary frequency but denies any current discomfort or burning. She has had no recurrent fever. Her appetite is marginal. Her energy is poor. She denies any new cough. She is had no hemoptysis. She denies any further bowel or bladder pain. She states that she is tired and sleeps a lot. Her ECOG is 3 today. She has not started any other treatment for the lung cancer since completion of the radiation and Carbo/paclitaxel. Her last dose of chemotherapy was April 07, 2020. Past Medical History: Anxiety/depression Hypertension Migraine headaches Past Surgical History: Cholecystectomy Flu Vaccine in 2019 - Given in right deltoid/lc Pneumonia Vaccine in 2019 - Given in left deltoid/lc Bronchoscopy with EBUS, right upper lobe endobronchial biopsy, FNA biopsy of station 4R lymph node in 2019 Cone biopsy for cervical cancer in 1987 Allergies: No Known Allergies. Medications: Cholecalciferol 1 Tablet (of 25 mcg ) Oral daily [facility] Nicotine 1 Patch(es) (of 21 mg/24hr) Patch 24 Hr Transdermal q 24 hours Ferrous Sulfate 1 Tablet (of 325 (65 fe) mg) Oral daily Ipratropium-Albuterol 3 mL (of 0.5-2.5 (3) mg/3mL) Solution Inhalation four times a day PRN KlonoPIN 1 Tablet (of 0.5 mg) Oral daily oxyCODONE HCl 1 - 2 Tablet (of 5 mg) Tablet Oral q 4 hours Rivaroxaban 1 Tablet (of 20 mg) Oral daily Saline Nasal [place] 1 (0.65 %) Solution Nasal daily Zoloft 1 Tablet (of 50 mg) Oral daily Family History: Ms. Denis's father is : heart disease, and hypertension, and myocardial infarction, and stroke. Father of stroke. Mother is also , cause unknown to the patient. A brother and a sister of lung cancer. Another sister had kidney failure. 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 She is a daily smoker who has smoked 0.5 packs/day for 45 years. She is a former drinker. She has indicated exposure to the following products: cigarettes. Review Of Symptoms: Constitutional Denies fevers, chills, night sweats. NO ENERGY AND SLEEPING ALL THE TIME Allergic/Immunologic No reactions. Eyes Denies significant visual changes. No diplopia. No amaurosis. ENMT Denies changes in hearing, mouth sores, but she has had difficulty swallowing, which is new this week. Hard to swallow and has mouth soreness. She has sores on her lower lip. Hematologic/Lymphatic She states she has bruising on her abdomen and right upper leg. Respiratory Denies new or worsening dyspnea on exertion, chest pain, cough or hemoptysis. Denies orthopnea. Cardiovascular Denies anginal chest pain, palpitations or orthopnea. Gastrointestinal Denies nausea, vomiting, diarrhea, GI bleeding, or constipation. Denies change in bowel habits and/or stool color, no heartburn or early satiety. Genitourinary (F) No hematuria, hesitancy, incontinence, vaginal bleeding, discharge or other problems with urination. Musculoskeletal Denies joint pain, swelling or redness. No decreased range of motion. Integumentary Denies chronic rashes, inflammation, ulcerations or skin changes. Neurologic Denies headache, blurred vision, and no areas of focal weakness or numbness. Gait not assessed due to wheelchair. No sensory problems. Psychiatric Denies insomnia, depression, coty or mood swings. Vital Signs: Performed on Jun 09, 2020 11:24 Height - 66.00 in Temperature - 98.5 F Pulse - 93 /min Respiration - 17 /min BP - 166/78 mm(hg) (HIGH) O2 Sat - 98 % Pain - 4,3 - Capable of only limited self-care, confined to bed or chair more than 50% of waking hours. (ECOG) Physical Examination: Constitutional Alert, oriented, no acute distress. Skin pink, warm and dry. Head Normocephalic; atraumatic. Eyes Conjunctivae and sclerae are clear and without icterus. Pupils are reactive and equal. ENMT White pasty coating on tongue with right-sided tonsillar exudate and bright redness noted. She also has evidence of herpes simplex/cold sores on her lower lips that cover approximately half of her lip. She also has lesions inside her lower lip area. Neck Supple without masses or thyromegaly. Hematologic/Lymphatic No tender or palpable lymph nodes in the cervical or supraclavicular areas. Respiratory Lungs are diminished bilaterally with expiratory wheezing noted lower lobes bilaterally. Cardiovascular Regular rate and rhythm of heart without murmurs,clicks, gallops or rubs. Abdomen Non-tender, non-distended, no masses or ascites. Good bowel sounds noted in all quads. No guarding or rebound tenderness. No pulsatile masses. She does have a large area of purple ecchymosis noted on the lower abdomen surrounding the umbilicus. Back/Spine Non-tender to palpation. Extremities No visible deformities, no cyanosis, clubbing or edema. Musculoskeletal No tenderness or swelling, normal range of motion without obvious weakness. Integumentary No rashes or lesions. She has an area of ecchymosis on the right lateral thigh. Neurologic No sensory or motor deficits, normal cerebellar function. In wheelchair for mobility assistance. Psychiatric Alert and oriented times three. Coherent speech. Verbalizes understanding of our discussions today. Laboratory:Test performed on May 12, 2020 14:35 Sodium 128 mmol/L TSH 1.77 uIU/mL Potassium 4.7 mmol/L Chloride 93 mmol/L CO2 25 mmol/L Anion Gap 14.7 BUN 12 mg/dL Creatinine 0.6 mg/dL Cr Clearance (Est) 84.5400 mL/min eGFR 100.0 mL/min Glucose 101 mg/dL Osmolality - Calculated 266 mOsm/kg Calcium 9.3 mg/dL Protein, Total 6.6 g/dL Albumin 3.1 g/dL Globulin 3.5 g/dL Bilirubin, Total 0.3 mg/dL ALT (SGPT) 15 U/L AST (SGOT) 23 U/L Alkaline Phosphatase 158 IU/L WBC 5.7 10 3/uL RBC 3.16 10 6/uL HGB 10.1 g/dL HCT 29.6 % MCV 93.7 fL MCH 32.0 pg MCHC 34.1 g/dL RDW 25.3 % Platelet Count 259 10 3/cmm MPV 10.1 fL Neutrophils 4.29 10 3/uL Lymphocytes 0.4 10 3/uL Monocytes 0.7 10 3/uL Eosinophils 0.3 10 3/uL Basophils 0.0 10 3/uL Neutrophil % 74.7 % Lymphocyte % 6.8 % Monocyte % 11.7 % Eosinophil % 4.9 % Basophils % 0.7 % NRBC % 0 % Test performed on May 08, 2020 14:45 Blood Culture R3 Test performed on Apr 15, 2020 08:48 CBC Slide Review Slide Review Perform SLIDE REVIEW AGREES WITH AUTOMATED RESULTS ST Test performed on Apr 07, 2020 09:45 Ferritin 903 ng/mL Iron 64 mcg/dL Iron Binding Capacity (TIBC) 317 mcg/dl % Iron Saturation 20.1 % UIBC 253 mcg/dL Impression: 1. Adenocarcinoma involving the upper lobe of the right lung, by clinical evaluation stage at least IIIB (T4, N2, M0). 2. She underwent bronchoscopy/EBUS with right upper lobe endobronchial biopsy and with FNA biopsy of station 4R lymph node on 02/08/2020. 3. Hypertension. 4. COPD. 5. She has history of migraine headaches. 6. She has remote history of cervical cancer, treated with cone biopsy. 7. Anxiety/depression. 8. Nicotine dependence. Plan: 1. Adenocarcinoma involving the upper lobe of the right lung, by clinical evaluation stage at least IIIB (T4, N2, M0). She has undergone ongoing radiation concurrently with weekly carboplatin/paclitaxel chemotherapy. Her chemotherapy was complicated by suspected infusion reaction with her initial dose of carboplatin. The carboplatin was held at week 2, but reinstituted with her weeks 3 and 4 treatments. She had significant clinical improvement during her chemoradiation. However, on 04/17/2019 she required admission to the hospital for shortness of breath/hypoxia and fever. Her repeat CT scans showed significant improvement in the right upper lobe lung cancer compared to the March [address] CT. In particular, there was much less involvement of the superior vena cava and of the pulmonary vein. She initially improved on empiric antibiotic therapy. However, she continued to have intermittent fever. She had been very weak generally, and she has had significant decline in her performance status. She had removal of her PICC line despite normal blood cultures. She was placed on Levaquin prophylactically and her fever did resolve. We are waiting for improvement in her performance status before initiating immunotherapy. 2. 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 It has shown improvement by followup CT scan. She continues anticoagulation with apixaban. 3. She has severe underlying COPD. 4. NEW ACTUE PROBLEMS TODAY A. She has significant mucositis with evidence of candidiasis as well as herpes simplex virus. This is affecting her lips, throat and mouth. 1. We will treat her with Famvir 500 mg 3 times daily orally, fluconazole 100 mg p.o. daily for a minimum of 7 days. We will assess this in 1 week. B. Leukocytosis with elevated white count of 22.2 and absolute neutrophil count of 19,600. 1. We will have her resume Levaquin 500 mg p.o. daily for a week. She is having marginal performance status and some urinary incontinence this will help cover for upper respiratory as well as UTI. C. Lower extremity edema 1. This is chronic and positional she may try Lasix 20 mg orally daily as needed. She has been cautioned not to take it more than 3 to 4 days in a row due to concerns of dehydration due to poor oral intake at present. E. Intermittent, chronic constipation 1. We will have her try MiraLAX as directed. I did send a prescription to her pharmacy. 2. She is currently doing stool softeners 1 or 2 daily. She is advised she can increase this to max of 2 twice daily for now. 5. Follow-up plan A. We will plan to see her back in 1 week with repeat blood counts to include CBC and CMP. B. Mrs. Denis and her daughter have been instructed to contact us in the interim should questions or problems arise. Signed By: Shreya Multani-, AOCNP Jeff Almeida MD <<Signature on File>>
[2020-06-17 12:57] LABS: Basophils % 0.3 %; Eosinophils % 0.4 %; Hematocrit 35.8 % (37.0-47.0); Hemoglobin 11.8 g/dL (11.5-15.3); Lymphocytes # 0.1 10^3/uL (0.8-4.8); Lymphocytes % 1.2 %; Mean Corpuscular Hemoglobin 30.4 pg (28.0-34.0); Mean Corpuscular Volume 92.3 fL (81-99); Mean Platelet Volume 9.3 fL (7.4-10.4); Monocytes # 0.4 10^3/uL (0.2-0.9); Neutrophils # 8.64 10^3/uL (1.8-7.7); Neutrophils % 89.2 %; Nucleated Red Blood Cells % 0 %; Platelet Count 193 10^3/cmm (130-400); Red Blood Count 3.88 10^6/uL (4.1-5.3); Red Cell Distribution Width 21.2 % (12.1-15.1); White Blood Count 9.7 10^3/uL (4.0-10.0)
[2020-06-17 13:34] LABS: Alanine Aminotransferase 46 U/L (0-33); Albumin Level 3.3 g/dL (3.5-5.2); Alkaline Phosphatase 88 IU/L (35-105); Anion Gap 12.4 (5-19); Aspartate Amino Transferase 23 U/L (0-32); Blood Urea Nitrogen 37 mg/dL (8-23); Calcium 8.9 mg/dL (8.5-10.5); Carbon Dioxide 28 mmol/L (22-29); Chloride 93 mmol/L (98-107); Globulin 2.7 g/dL (1.3-4.6); Glucose 124 mg/dL (65-115); Osmolality Calculated 280 mOsm/kg (285-295); Potassium 3.4 mmol/L (3.5-5.1); Sodium 130 mmol/L (136-145); Total Bilirubin 0.7 mg/dL (0.15-1.2)
[2020-06-17 15:46] LABS: INR 1.02 (0.8-1.2)
--- NOTE | 2020-06-29 17:02 | ONC FU_ITS ---
[facility] Patient Note Patient: Iram Denis < Unit #: [id number]: 1955 Dictated By: Shreya MultaniDate of Visit: Jun 17, 2020 Onc MED Follow-Up/Prog Note Chief Complaint: Lung cancer. History of Present Illness: Ms Denis is a 65-year-old woman with adenocarcinoma involving the upper lobe of the right lung, by clinical evaluation stage IIIB (T4, N2, M0). She had presented with hemoptysis in association with worsening shortness of breath and cough. Her chest x-ray on 01/30/2020 showed a 10 cm right hilar/suprahilar mass extending into the right upper lobe consistent with a primary lung malignancy. This was noted to probably invade the mediastinum. Chest CT on 02/04/2020 showed large right hilar and suprahilar mass measuring 11.9 x 6.1 x 7.1 cm. There was slight narrowing of the distal main pulmonary artery and there was narrowing of the adjacent segmental and subsegmental right upper lobe pulmonary branches. There was encasement of the right mainstem bronchus with associated narrowing. There was invasion into the mediastinum and adjacent mediastinal fat, and there was mild narrowing of the distal trachea. There was narrowing with encasement of the right superior vena cava which appeared partially thrombosed. There was evidence of tumor thrombus in the mid segment of the SVC measuring approximately 4.1 cm. There was conglomerate right hilar lymphadenopathy. Interstitial infiltrates throughout the right lung appeared suspicious for lymphangitic metastases. On 02/08/2020 she underwent bronchoscopy/EBUS with endobronchial biopsy from the right upper lobe and with FNA biopsy of station 4R lymph node. Pathology on the station 4R lymph node biopsy was consistent with metastatic adenocarcinoma, favoring lung primary. The tumor cells were TTF-1 positive. PET/CT on 02/09/2020 showed FDG avid right upper lobe mass measuring 12.1 x 5.6 cm. There was mild activity in a 1.5 cm subcarinal lymph node, consistent with metastatic disease. Postobstructive atelectasis with right upper and middle lobe interstitial thickening was suspicious for carcinomatosis. Dr Almeida had seen her initially on 02/20/2020. As her disease appeared to be localized by clinical evaluation, she was recommended to undergo radiation concurrently with weekly carboplatin/paclitaxel chemotherapy. As she had symptoms of impending superior vena cava obstruction and she had poor peripheral venous access, she received several fractions of radiation prior to her week 1 chemotherapy infusion which was administered on 03/12/2020. With that treatment she was able to complete the full dose of paclitaxel, but the carboplatin was interrupted due to development of acute shortness of breath and pulmonary congestion. An infusion reaction was suspected, but given her underlying lung disease and locally advanced malignancy, Dr Almeida was not certain of that. In any case, with additional steroid and pulmonary nebulizers her symptoms improved, and she was able to continue her radiation. On 03/19/2020 she she continue with her week 2 chemotherapy, limited to paclitaxel alone. She tolerated it well. At that point she was showing significant clinical improvement, and she also appeared to be showing significant response by follow-up CT imaging. With her week 3 chemotherapy on 03/27/2020, she restarted paclitaxel in combination with carboplatin, and she tolerated it well. She continued with week 4 treatment on 04/07/2020. On 04/18/2020 she was admitted to the hospital after presenting to the emergency room with fever and shortness of breath. She was just mildly neutropenic. CT pulmonary angiogram showed no evidence of pulmonary embolism. She was noted to have a large right upper lobe mass extending along the mediastinal border with encasement of the pulmonary artery branches to the right middle lobe. The mass was noted to involve the lower superior vena cava and right superior pulmonary vein, but it was noted to be significantly smaller compared to the previous study with much less involvement of the superior vena cava and of the pulmonary vein. She continued anticoagulation with apixaban. Following discharge from the hospital she was able to continue with her radiation. She completed treatment on 04/29/2020 to a total dose of 6000 cGy administered in 30 fractions. She was seen for a follow-up visit. With the improvement on her restaging CT scans, she was felt to be eligible to begin maintenance immunotherapy with durvalumab. However, she had been feeling terrible. She had continued to have intermittent low-grade fever and she just been feeling very weak generally. Her ECOG score was 3. Mrs Denis had removal of her PICC line despite normal blood cultures. She was placed on Levaquin. Her fever has resolved. Mrs. Denis was seen in the emergency room on 06/07/2020 with complaints of increased shortness of breath and higher O2 requirements. She also had concerns of bruising above her umbilicus. She has a large area on her lower abdomen around her umbilicus that is purple in appearance that does appear to be a significant bruise. She was currently on Eliquis (but she is not taking it right now due to the bruising) and has been on Lovenox in the past. She denies any other areas of bleeding. She does have a large ecchymotic spot on her right lateral thigh. She denies any trauma or injury. She did have follow-up chest x-ray on 06/01/2020 in the ER visit. She has a soft tissue density in the right suprahilar region concerning for lymphadenopathy or mass. This is previously noted. She has mild elevation right hemodiafiltration???probable small subpulmonic effusion. Mrs. Denis is here today for follow-up. She is accompanied by her daughter Gladys. She states overall she feels pretty good. She still having some ecchymosis and is hard to tell whether it is better or not. They are not sure that is much worse either but she has no new areas. She is having some swelling in her feet but overall is better. She states her mouth has dramatically improved but still bothersome at times. She is having some muscle pain in the area of the bruising but states it kind of comes and goes. She does report that she is having some palpitations when she first gets up in the morning. She states that when her heart is racing she does feel short of breath. She denies any fever or chill. She denies any nausea or vomiting. She states her bowels are moving normally. She still remains weak in general but states she feels she is getting little stronger every day. Her ECOG is 2. She has not started any other treatment for the lung cancer since completion of the radiation and Carbo/paclitaxel. Her last dose of chemotherapy was April 07, 2020. Past Medical History: Anxiety/depression Hypertension Migraine headaches Past Surgical History: Cholecystectomy Flu Vaccine in 2019 - Given in right deltoid/lc Pneumonia Vaccine in 2019 - Given in left deltoid/lc Bronchoscopy with EBUS, right upper lobe endobronchial biopsy, FNA biopsy of station 4R lymph node in 2019 Cone biopsy for cervical cancer in 1987 Allergies: No Known Allergies. Medications: Cholecalciferol 1 Tablet (of 25 mcg ) Oral daily [facility] Nicotine 1 Patch(es) (of 21 mg/24hr) Patch 24 Hr Transdermal q 24 hours Ferrous Sulfate 1 Tablet (of 325 (65 fe) mg) Oral daily Ipratropium-Albuterol 3 mL (of 0.5-2.5 (3) mg/3mL) Solution Inhalation four times a day PRN KlonoPIN 1 Tablet (of 0.5 mg) Oral daily oxyCODONE HCl 1 - 2 Tablet (of 5 mg) Tablet Oral q 4 hours Rivaroxaban 1 Tablet (of 20 mg) Oral daily Saline Nasal [place] 1 (0.65 %) Solution Nasal daily Zoloft 1 Tablet (of 50 mg) Oral daily Family History: Ms. Denis's father is : heart disease, and hypertension, and myocardial infarction, and stroke. Father of stroke. Mother is also , cause unknown to the patient. A brother and a sister of lung cancer. Another sister had kidney failure. 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 She is a daily smoker who has smoked 0.5 packs/day for 45 years. She is a former drinker. She has indicated exposure to the following products: cigarettes. Review Of Symptoms: Constitutional Denies fevers, chills, night sweats. NO ENERGY AND SLEEPING ALL THE TIME Allergic/Immunologic No reactions. Eyes Denies significant visual changes. No diplopia. No amaurosis. ENMT Denies changes in hearing, mouth sores, but she has had difficulty swallowing, which is new this week. Hard to swallow and has mouth soreness. She has sores on her lower lip. Hematologic/Lymphatic She states she has bruising on her abdomen and right upper leg. Respiratory Denies new or worsening dyspnea on exertion, chest pain, cough or hemoptysis. Denies orthopnea. Cardiovascular Denies anginal chest pain, palpitations or orthopnea. Gastrointestinal Denies nausea, vomiting, diarrhea, GI bleeding, or constipation. Denies change in bowel habits and/or stool color, no heartburn or early satiety. Genitourinary (F) No hematuria, hesitancy, incontinence, vaginal bleeding, discharge or other problems with urination. Musculoskeletal Denies joint pain, swelling or redness. No decreased range of motion. Integumentary Denies chronic rashes, inflammation, ulcerations or skin changes. Neurologic Denies headache, blurred vision, and no areas of focal weakness or numbness. Gait not assessed due to wheelchair. No sensory problems. Psychiatric Denies insomnia, depression, coty or mood swings. Vital Signs: Performed on Jun 17, 2020 14:18 Height - 66.00 in Temperature - 98.4 F Pulse - 102 /min (HIGH) Respiration - 18 /min BP - 106/65 mm(hg) O2 Sat - 90 % (LOW) Pain - 5,3 - Capable of only limited self-care, confined to bed or chair more than 50% of waking hours. (ECOG) Physical Examination: Constitutional Alert, oriented, no acute distress. Skin pink, warm and dry. Head Normocephalic; atraumatic. Eyes Conjunctivae and sclerae are clear and without icterus. Pupils are reactive and equal. ENMT White pasty coating on tongue with right-sided tonsillar exudate and bright redness noted. She also has evidence of herpes simplex/cold sores on her lower lips that cover approximately half of her lip. She also has lesions inside her lower lip area. Improved overall. Neck Supple without masses or thyromegaly. Hematologic/Lymphatic No tender or palpable lymph nodes in the cervical or supraclavicular areas. Respiratory Lungs are diminished bilaterally with expiratory wheezing noted lower lobes bilaterally. Cardiovascular Regular rate and rhythm of heart without murmurs,clicks, gallops or rubs. Abdomen Non-tender, non-distended, no masses or ascites. Good bowel sounds noted in all quads. No guarding or rebound tenderness. No pulsatile masses. She does have a large area of purple ecchymosis noted on the lower abdomen surrounding the umbilicus. Back/Spine Non-tender to palpation. Extremities No visible deformities, no cyanosis, clubbing or edema. Musculoskeletal No tenderness or swelling, normal range of motion without obvious weakness. Integumentary No rashes or lesions. She has an area of ecchymosis on the right lateral thigh. Neurologic No sensory or motor deficits, normal cerebellar function. In wheelchair for mobility assistance. Psychiatric Alert and oriented times three. Coherent speech. Verbalizes understanding of our discussions today. Laboratory:Test performed on Jun 17, 2020 15:15 PT 13.70 SECONDS INR 1.02 Test performed on Jun 17, 2020 12:30 Sodium 130 mmol/L Potassium 3.4 mmol/L Chloride 93 mmol/L CO2 28 mmol/L Anion Gap 12.4 BUN 37 mg/dL Creatinine 0.6 mg/dL Cr Clearance (Est) 84.5400 mL/min eGFR 100.0 mL/min Glucose 124 mg/dL Osmolality - Calculated 280 mOsm/kg Calcium 8.9 mg/dL Protein, Total 6.0 g/dL Albumin 3.3 g/dL Globulin 2.7 g/dL Bilirubin, Total 0.7 mg/dL ALT (SGPT) 46 U/L AST (SGOT) 23 U/L Alkaline Phosphatase 88 IU/L WBC 9.7 10 3/uL RBC 3.88 10 6/uL HGB 11.8 g/dL HCT 35.8 % MCV 92.3 fL MCH 30.4 pg MCHC 33.0 g/dL RDW 21.2 % Platelet Count 193 10 3/cmm MPV 9.3 fL Neutrophils 8.64 10 3/uL Lymphocytes 0.1 10 3/uL Monocytes 0.4 10 3/uL Eosinophils 0.0 10 3/uL Basophils 0.0 10 3/uL Neutrophil % 89.2 % Lymphocyte % 1.2 % Monocyte % 4.0 % Eosinophil % 0.4 % Basophils % 0.3 % NRBC % 0 % Test performed on May 12, 2020 14:35 TSH 1.77 uIU/mL Test performed on May 08, 2020 14:45 Blood Culture R3 Test performed on Apr 15, 2020 08:48 CBC Slide Review Slide Review Perform SLIDE REVIEW AGREES WITH AUTOMATED RESULTS ST Test performed on Apr 07, 2020 09:45 Ferritin 903 ng/mL Iron 64 mcg/dL Iron Binding Capacity (TIBC) 317 mcg/dl % Iron Saturation 20.1 % UIBC 253 mcg/dL Impression: 1. Adenocarcinoma involving the upper lobe of the right lung, by clinical evaluation stage at least IIIB (T4, N2, M0). 2. She underwent bronchoscopy/EBUS with right upper lobe endobronchial biopsy and with FNA biopsy of station 4R lymph node on 02/08/2020. 3. Hypertension. 4. COPD. 5. She has history of migraine headaches. 6. She has remote history of cervical cancer, treated with cone biopsy. 7. Anxiety/depression. 8. Nicotine dependence. Plan: 1. Adenocarcinoma involving the upper lobe of the right lung, by clinical evaluation stage at least IIIB (T4, N2, M0). She has undergone ongoing radiation concurrently with weekly carboplatin/paclitaxel chemotherapy. Her chemotherapy was complicated by suspected infusion reaction with her initial dose of carboplatin. The carboplatin was held at week 2, but reinstituted with her weeks 3 and 4 treatments. She had significant clinical improvement during her chemoradiation. However, on 04/17/2019 she required admission to the hospital for shortness of breath/hypoxia and fever. Her repeat CT scans showed significant improvement in the right upper lobe lung cancer compared to the March [address] CT. In particular, there was much less involvement of the superior vena cava and of the pulmonary vein. She initially improved on empiric antibiotic therapy. However, she continued to have intermittent fever. She had been very weak generally, and she has had significant decline in her performance status. She had removal of her PICC line despite normal blood cultures. She was placed on Levaquin prophylactically and her fever did resolve. We are waiting for improvement in her performance status before initiating immunotherapy. 2. 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 It has shown improvement by followup CT scan. She was on anticoagulation with apixaban but she is currently holding it due to a large bruising on her abdomen and thigh. A. PT/PTT for evaluation for possible bleeding resulting in ecchymosis on abdomen and thigh. B. For PT/PTT are normal will consider a CT for peritoneal hemorrhage. 3. She has severe underlying COPD. 4. Mucositis A. She had significant mucositis with evidence of candidiasis as well as herpes simplex virus. It is better overall, but not completely resolved at present. 1. We will have her continue with Famvir 500 mg 3 times daily orally, fluconazole 100 mg p.o. daily for a minimum of 7 days. B. Previous Leukocytosis with elevated white count of 22.2 and absolute neutrophil count of 19,600 on 06/09/2020. 1. Resolved on labs today WBC 9.7, hemoglobin 11.8 platelets 193,000 ANC is 8640. 5. Lower extremity edema 1. This is chronic and positional she may try to increase Lasix 20 mg orally twice daily as needed. She will need to add potassium 20 mEq daily. This was called to her pharmacy for liquid potassium as she has trouble swallowing potassium pills. 6. Intermittent, chronic constipation 1. We will have her continue to try MiraLAX as directed. 2. She is currently doing stool softeners 1 or 2 daily. She is advised she can increase this to max of 2 twice daily for now. 7. Palpitations A. I have requested a Holter monitor for evaluation of palpitations. B. Her electrolytes have been stable as of late. Her last TSH on May 12, 2020 was normal at 1.77. 8. Follow-up plan A. We will plan to see her back in 1 week with repeat blood counts to include CBC and CMP. B. Mrs. Denis and her daughter have been instructed to contact us in the interim should questions or problems arise. Signed By: Carin MultaniNFabrice <<Signature on File>>
== END 2020-06-25 12:00 | disposition home or self-care (01) ==
LOC: ONCMED 05:27
PROVIDERS: Absent Provider Radiology Radiation Oncology; PCP Internal Medicine; Visit Provider Nurse Practitioner
DX: C34.11 Malignant neoplasm of upper lobe, right bronchus or lung (principal); I10 Essential (primary) hypertension; J44.9 Chronic obstructive pulmonary disease, unspecified; G43.919 Migraine, unspecified, intractable, without status migrainosus; F41.9 Anxiety disorder, unspecified; F32.9 Major depressive disorder, single episode, unspecified; F17.200 Nicotine dependence, unspecified, uncomplicated; I82.210 Acute embolism and thrombosis of superior vena cava; Z79.899 Other long term (current) drug therapy; Z85.41 Personal history of malignant neoplasm of cervix uteri; Z79.01 Long term (current) use of anticoagulants
CPT/HCPCS: 36415; 80053; 85025; 85610; 99215

== ENCOUNTER 2020-06-25 12:45 | Outpatient (CLI) | payer MEDICARE, MEDICAID, SELFPAY ==
--- NOTE | 2020-06-25 13:04 | CT_ITS ---
WS: [id number] CT scan of the abdomen and pelvis with Oral and IV contrast. Additional two-dimensional coronal and s agittal reconstruction was performed. 06/25/2020 Clinical Data: HEMORRHAGE, LUNG CANCER, MID TO LOWER QUAD PAIN Comparison: CTA chest with CT abdomen pelvis, 04/17/2020. DLP: 857.[address] scans at [facility] use at least one of these dose optimization techniques: automat ed exposure control; mA and/or kV adjustment per patient size (includes targeted exams where dose is matched to clinical indication); or iterative reconstruction. Findings: The lower lungs show no nodules, masses or effusions. There is minimal groundglass atelectasis at the base of the right lower lobe. The liver, spleen, adrenal glands and pancreas are normal. There are clips in the gallbladder fossa from a cholecystectomy. The kidneys show equal bilateral contrast excretion with bilateral simple cysts and a calcified perip heral left renal cyst.. The abdominal aorta is normal in size and location and the wall. No appendicitis or diverticulitis is seen. Oral contrast is in the stomach and small bowel and there is no bowel dilatation. No abscess, adenopathy, ascites, mass, obstruction or free air is seen. There is a cystic structure in the right rectus abdominous which was not previously present but could repr esent a small hematoma. The bladder is unremarkable. There are uterus shows calcified leiomyomas. No inguinal hernia is seen. The bones of the lower thorax, lumbar spine, pelvis, and hips show degenerative change of the lower t horacic and all lumbar vertebral bodies with disc space narrowing at L5-S1. No metastatic bony lesion s are seen. CT/CT abdomen pelvis w con* [id number] Impression: 1. Negative for acute intra-abdominal or pelvic abnormalities. 2. Cholecystectomy, bilateral renal cysts, cystic fluid collection in right rec tus abdominis and uterine leiomyomas.
[2020-06-25] MEDS: iohexol 300 mg/mL 100 mL Btl IV (14:56)
[2020-06-25] MEDS: iohexol 300 mg/mL 50 mL Btl PO (14:56)
== END 2020-06-25 12:46 | disposition home or self-care (01) ==
LOC: RADWPI 12:55
PROVIDERS: PCP Internal Medicine; Visit Provider Nurse Practitioner
DX: C34.11 Malignant neoplasm of upper lobe, right bronchus or lung (principal); R10.9 Unspecified abdominal pain; Z90.49 Acquired absence of other specified parts of digestive tract; Q61.02 Congenital multiple renal cysts
CPT/HCPCS: 74177; Q9967

== ENCOUNTER 2020-07-14 11:57 | Outpatient (CLI) | payer MEDICARE, MEDICAID, SELFPAY ==
[2020-07-14 13:06] LABS: Basophils # 0.1 10^3/uL (0.0-0.1); Basophils % 0.8 %; Eosinophils # 0.1 10^3/uL (0.0-0.8); Eosinophils % 0.8 %; Hematocrit 37.8 % (37.0-47.0); Hemoglobin 11.9 g/dL (11.5-15.3); Lymphocytes # 0.7 10^3/uL (0.8-4.8); Lymphocytes % 7.5 %; Mean Corpuscular HGB Conc 31.5 g/dL (30.0-36.0); Mean Corpuscular Hemoglobin 28.1 pg (28.0-34.0); Mean Corpuscular Volume 89.4 fL (81-99); Mean Platelet Volume 8.7 fL (7.4-10.4); Neutrophils # 6.87 10^3/uL (1.8-7.7); Nucleated Red Blood Cells % 0 %; Platelet Count 370 10^3/cmm (130-400); Red Blood Count 4.23 10^6/uL (4.1-5.3); Red Cell Distribution Width 17.3 % (12.1-15.1)
[2020-07-14 13:33] LABS: Alanine Aminotransferase 39 U/L (0-33); Albumin Level 3.7 g/dL (3.5-5.2); Alkaline Phosphatase 140 IU/L (35-105); Anion Gap 11.9 (5-19); Aspartate Amino Transferase 35 U/L (0-32); Blood Urea Nitrogen 16 mg/dL (8-23); Calcium 9.5 mg/dL (8.5-10.5); Carbon Dioxide 25 mmol/L (22-29); Chloride 98 mmol/L (98-107); Globulin 2.4 g/dL (1.3-4.6); Glomerular Filtration Rate 123.4 mL/min (90-130); Glucose 103 mg/dL (65-115); Osmolality Calculated 273 mOsm/kg (285-295); Potassium 3.9 mmol/L (3.5-5.1); Sodium 131 mmol/L (136-145); Total Bilirubin 0.3 mg/dL (0.15-1.2); Total Protein 6.1 g/dL (6.6-8.7)
--- NOTE | 2020-07-24 01:13 | ONC FU_ITS ---
[facility] Patient Note Patient: Iram Denis Unit #: [id number]: 1955 Dictated By: Shreya MultaniDate of Visit: Jul 14, 2020 Onc MED Follow-Up/Prog Note Chief Complaint: Lung cancer. History of Present Illness: Ms Denis is a 65-year-old woman with adenocarcinoma involving the upper lobe of the right lung, by clinical evaluation stage IIIB (T4, N2, M0). She had presented with hemoptysis in association with worsening shortness of breath and cough. Her chest x-ray on 01/30/2020 showed a 10 cm right hilar/suprahilar mass extending into the right upper lobe consistent with a primary lung malignancy. This was noted to probably invade the mediastinum. Chest CT on 02/04/2020 showed large right hilar and suprahilar mass measuring 11.9 x 6.1 x 7.1 cm. There was slight narrowing of the distal main pulmonary artery and there was narrowing of the adjacent segmental and subsegmental right upper lobe pulmonary branches. There was encasement of the right mainstem bronchus with associated narrowing. There was invasion into the mediastinum and adjacent mediastinal fat, and there was mild narrowing of the distal trachea. There was narrowing with encasement of the right superior vena cava which appeared partially thrombosed. There was evidence of tumor thrombus in the mid segment of the SVC measuring approximately 4.1 cm. There was conglomerate right hilar lymphadenopathy. Interstitial infiltrates throughout the right lung appeared suspicious for lymphangitic metastases. On 02/08/2020 she underwent bronchoscopy/EBUS with endobronchial biopsy from the right upper lobe and with FNA biopsy of station 4R lymph node. Pathology on the station 4R lymph node biopsy was consistent with metastatic adenocarcinoma, favoring lung primary. The tumor cells were TTF-1 positive. PET/CT on 02/09/2020 showed FDG avid right upper lobe mass measuring 12.1 x 5.6 cm. There was mild activity in a 1.5 cm subcarinal lymph node, consistent with metastatic disease. Postobstructive atelectasis with right upper and middle lobe interstitial thickening was suspicious for carcinomatosis. Dr Almeida had seen her initially on 02/20/2020. As her disease appeared to be localized by clinical evaluation, she was recommended to undergo radiation concurrently with weekly carboplatin/paclitaxel chemotherapy. As she had symptoms of impending superior vena cava obstruction and she had poor peripheral venous access, she received several fractions of radiation prior to her week 1 chemotherapy infusion which was administered on 03/12/2020. With that treatment she was able to complete the full dose of paclitaxel, but the carboplatin was interrupted due to development of acute shortness of breath and pulmonary congestion. An infusion reaction was suspected, but given her underlying lung disease and locally advanced malignancy, Dr Almeida was not certain of that. In any case, with additional steroid and pulmonary nebulizers her symptoms improved, and she was able to continue her radiation. On 03/19/2020 she she continue with her week 2 chemotherapy, limited to paclitaxel alone. She tolerated it well. At that point she was showing significant clinical improvement, and she also appeared to be showing significant response by follow-up CT imaging. With her week 3 chemotherapy on 03/27/2020, she restarted paclitaxel in combination with carboplatin, and she tolerated it well. She continued with week 4 treatment on 04/07/2020. On 04/18/2020 she was admitted to the hospital after presenting to the emergency room with fever and shortness of breath. She was just mildly neutropenic. CT pulmonary angiogram showed no evidence of pulmonary embolism. She was noted to have a large right upper lobe mass extending along the mediastinal border with encasement of the pulmonary artery branches to the right middle lobe. The mass was noted to involve the lower superior vena cava and right superior pulmonary vein, but it was noted to be significantly smaller compared to the previous study with much less involvement of the superior vena cava and of the pulmonary vein. She continued anticoagulation with apixaban. Following discharge from the hospital she was able to continue with her radiation. She completed treatment on 04/29/2020 to a total dose of 6000 cGy administered in 30 fractions. She was seen for a follow-up visit. With the improvement on her restaging CT scans, she was felt to be eligible to begin maintenance immunotherapy with durvalumab. However, she had been feeling terrible. She had continued to have intermittent low-grade fever and she just been feeling very weak generally. Her ECOG score was 3. Mrs Denis had removal of her PICC line despite normal blood cultures. She was placed on Levaquin. Her fever has resolved. Mrs. Denis was seen in the emergency room on 06/07/2020 with complaints of increased shortness of breath and higher O2 requirements. She also had concerns of bruising above her umbilicus. She has a large area on her lower abdomen around her umbilicus that is purple in appearance that does appear to be a significant bruise. She was currently on Eliquis (but she is not taking it right now due to the bruising) and has been on Lovenox in the past. She denies any other areas of bleeding. She does have a large ecchymotic spot on her right lateral thigh. She denies any trauma or injury. She did have follow-up chest x-ray on 06/01/2020 in the ER visit. She has a soft tissue density in the right suprahilar region concerning for lymphadenopathy or mass. This is previously noted. She has mild elevation right hemodiafiltration???probable small subpulmonic effusion. Mrs. Denis is here today for follow-up. She is accompanied by her son today. She recently had Holter monitoring for palpitations. It did note that she had atrial fib 28.5% of the time. The maximum heart rate was recorded at 146 bpm and minimum was 71 bpm. The study included an atrial fib burden of 28.56%. The longest episode was 14 hours and 26 minutes on day 1. She also had CT of the abdomen pelvis with contrast on June 25, 2020 for concerns of significant abdominal wall bruising and normal PT/PTT as well mid to lower quadrant abdominal pain and her history of lung cancer. There were no acute intra-abdominal or pelvic abnormalities. There were no metastatic bony lesions seen. She did have degenerative changes of the lower thoracic and all the lumbar vertebral bodies with this space narrowing at L5-S1. There was no appendicitis or diverticulitis. There was no adenopathy ascites or masses noted. There was a cystic structure in the right rectus abdominis which was not previously present but could represent a small hematoma which would correlate with her abdominal wall hematoma/bleeding in her recent past. Her Xarelto had been placed on hold due to the bleeding. She states overall she is feeling pretty good. She has no new concerns today. She denies any fever or chills. She denies any nausea or vomiting. She has had no further bleeding. Her hematoma on her abdomen and leg have resolved. She states she is eating pretty good. She is able to get up and walk better than she had in the last several months. She states her breathing is good as well. She denies any diarrhea or constipation. She has had no nausea or vomiting. She denies any neuropathy. Her ECOG is 2. She has not yet started on the planned immunotherapy after completing her radiation in April. She had declining performance status and required removal of her PICC line for fever. She then developed the hematoma in the abdominal wall and right lateral thigh. Xarelto was placed on hold. Past Medical History: Anxiety/depression Hypertension Migraine headaches Past Surgical History: Cholecystectomy Flu Vaccine in 2019 - Given in right deltoid/lc Pneumonia Vaccine in 2019 - Given in left deltoid/lc Bronchoscopy with EBUS, right upper lobe endobronchial biopsy, FNA biopsy of station 4R lymph node in 2019 Cone biopsy for cervical cancer in 1987 Allergies: No Known Allergies. Medications: Ipratropium-Albuterol 3 mL (of 0.5-2.5 (3) mg/3mL) Solution Inhalation four times a day PRN KlonoPIN 1 Tablet (of 0.5 mg) Oral daily oxyCODONE HCl 1 - 2 Tablet (of 5 mg) Tablet Oral q 4 hours Saline Nasal [place] 1 (0.65 %) Solution Nasal daily Zoloft 1 Tablet (of 50 mg) Oral daily Family History: Ms. Denis's father is : heart disease, and hypertension, and myocardial infarction, and stroke. Father of stroke. Mother is also , cause unknown to the patient. A brother and a sister of lung cancer. Another sister had kidney failure. 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 She is a daily smoker who has smoked 0.5 packs/day for 45 years. She is a former drinker. She has indicated exposure to the following products: cigarettes. Review Of Symptoms: Constitutional Denies fevers, chills, night sweats. Better energy but still limited. Allergic/Immunologic No reactions. Eyes Denies significant visual changes. No diplopia. No amaurosis. ENMT Denies changes in hearing, sore throat, mouth sores, difficulty or changes in swallowing ability, and/or sinus drainage. Hematologic/Lymphatic Denies easy bruising or bleeding. The patient denies any tender or palpable lymph nodes. Respiratory Denies new or worsening dyspnea on exertion, chest pain, cough or hemoptysis. Denies orthopnea. Cardiovascular Denies anginal chest pain or orthopnea. Occasional palpitations but no worse than they have been. Lower extremity better but still there some . Goes down at night. Gastrointestinal Denies nausea, vomiting, diarrhea, GI bleeding, or constipation. Denies change in bowel habits and/or stool color, no heartburn or early satiety. Genitourinary (F) No hematuria, hesitancy, incontinence, vaginal bleeding, discharge or other problems with urination. Musculoskeletal Denies joint pain, swelling or redness. No decreased range of motion. Integumentary Denies chronic rashes, inflammation, ulcerations or skin changes. Neurologic Denies headache, blurred vision, and no areas of focal weakness or numbness. Gait not assessed due to wheelchair. No sensory problems. Psychiatric Denies insomnia, depression, coty or mood swings. Vital Signs: Performed on Jul 14, 2020 13:52 Height - 66.00 in Weight - 133.6 lbs (HIGH) BSA - 1.68 sq.m BMI - 21.56 Temperature - 98.0 F (LOW) Pulse - 94 /min Respiration - 18 /min BP - 166/93 mm(hg) (HIGH) O2 Sat - 96 % Pain - 0,2 - Ambulatory/capable of all self-care, unable to perform any work activities. Up and about more than 50% of waking hours. (ECOG) Physical Examination: Constitutional Alert, oriented, no acute distress. Skin pink, warm and dry. Head Normocephalic; atraumatic. Eyes Conjunctivae and sclerae are clear and without icterus. Pupils are reactive and equal. Neck Supple without masses or thyromegaly. Hematologic/Lymphatic No tender or palpable lymph nodes in the cervical or supraclavicular areas. Respiratory Lungs are clear to auscultation without rhonchi or wheezing. Cardiovascular Regular rate and rhythm of heart without murmurs,clicks, gallops or rubs. Abdomen Non-tender, non-distended, no masses or ascites. Good bowel sounds noted in all quads. No guarding or rebound tenderness. No pulsatile masses. No evidence on bruising on abdomen. Back/Spine Non-tender to palpation. Extremities No visible deformities, no cyanosis, clubbing or edema. Musculoskeletal No tenderness or swelling, normal range of motion without obvious weakness. Integumentary No rashes or lesions. She has an area of ecchymosis on the right lateral thigh. Neurologic No sensory or motor deficits, normal cerebellar function. In wheelchair for mobility assistance. Psychiatric Alert and oriented times three. Coherent speech. Verbalizes understanding of our discussions today. Laboratory:Test performed on Jul 14, 2020 12:39 Sodium 131 mmol/L Potassium 3.9 mmol/L Chloride 98 mmol/L CO2 25 mmol/L Anion Gap 11.9 BUN 16 mg/dL Creatinine 0.5 mg/dL Cr Clearance (Est) 101.4500 mL/min eGFR 123.4 mL/min Glucose 103 mg/dL Osmolality - Calculated 273 mOsm/kg Calcium 9.5 mg/dL Protein, Total 6.1 g/dL Albumin 3.7 g/dL Globulin 2.4 g/dL Bilirubin, Total 0.3 mg/dL ALT (SGPT) 39 U/L AST (SGOT) 35 U/L Alkaline Phosphatase 140 IU/L WBC 9.0 10 3/uL RBC 4.23 10 6/uL HGB 11.9 g/dL HCT 37.8 % MCV 89.4 fL MCH 28.1 pg MCHC 31.5 g/dL RDW 17.3 % Platelet Count 370 10 3/cmm MPV 8.7 fL Neutrophils 6.87 10 3/uL Lymphocytes 0.7 10 3/uL Monocytes 1.0 10 3/uL Eosinophils 0.1 10 3/uL Basophils 0.1 10 3/uL Neutrophil % 76.0 % Lymphocyte % 7.5 % Monocyte % 11.0 % Eosinophil % 0.8 % Basophils % 0.8 % NRBC % 0 % Test performed on Jun 17, 2020 15:15 PT 13.70 SECONDS INR 1.02 Test performed on May 12, 2020 14:35 TSH 1.77 uIU/mL Test performed on May 08, 2020 14:45 Blood Culture R3 Test performed on Apr 15, 2020 08:48 CBC Slide Review Slide Review Perform SLIDE REVIEW AGREES WITH AUTOMATED RESULTS ST Test performed on Apr 07, 2020 09:45 Ferritin 903 ng/mL Iron 64 mcg/dL Iron Binding Capacity (TIBC) 317 mcg/dl % Iron Saturation 20.1 % UIBC 253 mcg/dL Impression: 1. Adenocarcinoma involving the upper lobe of the right lung, by clinical evaluation stage at least IIIB (T4, N2, M0). 2. She underwent bronchoscopy/EBUS with right upper lobe endobronchial biopsy and with FNA biopsy of station 4R lymph node on 02/08/2020. 3. Hypertension. 4. COPD. 5. She has history of migraine headaches. 6. She has remote history of cervical cancer, treated with cone biopsy. 7. Anxiety/depression. 8. Nicotine dependence. Plan: 1. Adenocarcinoma involving the upper lobe of the right lung, by clinical evaluation stage at least IIIB (T4, N2, M0). She has undergone ongoing radiation concurrently with weekly carboplatin/paclitaxel chemotherapy. Her chemotherapy was complicated by suspected infusion reaction with her initial dose of carboplatin. The carboplatin was held at week 2, but reinstituted with her weeks 3 and 4 treatments. She had significant clinical improvement during her chemoradiation. However, on 04/17/2019 she required admission to the hospital for shortness of breath/hypoxia and fever. Her repeat CT scans showed significant improvement in the right upper lobe lung cancer compared to the March [address] CT. In particular, there was much less involvement of the superior vena cava and of the pulmonary vein. She initially improved on empiric antibiotic therapy. However, she continued to have intermittent fever. She had been very weak generally, and she has had significant decline in her performance status. She had removal of her PICC line despite normal blood cultures. She was placed on Levaquin prophylactically and her fever did resolve. We are waiting for improvement in her performance status before initiating immunotherapy. 2. 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 It has shown improvement by followup CT scan. She was on anticoagulation with Xarelto but she is currently holding it due to a large bruising on her abdomen and thigh. A. PT/PTT for evaluation for possible bleeding resulting in ecchymosis on abdomen and thigh was normal and followup CT scan On June 25, 2020 of the abdomen did show A cystic structure in the right rectus abdominis which was not previously present but could represent a small hematoma . Her anticoagulation has remained on hold. 3. She was having palpitations and I had requested a Holter monitor. A. This was performed on 06/24/2020. It does show an atrial fibrillation burden of 28.5% with the fastest episode at 146 bpm and the longest episode was 14 hours and 26 minutes. B. We will now have her resume her Xarelto at 15 mg daily due to her history of bleeding (abdominal wall and lateral thigh/hematoma ) we will not resume her at full dosing. C. I have also requested referral to cardiology for management of atrial fibrillation. D. She is not on any cardiac agents per her report or our med list. E/ B. Her electrolytes have been stable as of late. Her last TSH on May 12, 2020 was normal at 1.77. 4. She has severe underlying COPD. Currently stable. 5. Mucositis A. She had significant mucositis with evidence of candidiasis as well as herpes simplex virus. Resolved at present. B. She required treatment with Famvir 500 mg 3 times daily orally, fluconazole 100 mg p.o. daily for a minimum of 14 days. 6. Lower extremity edema A. This is chronic and positional she will continue Lasix 20 mg orally twice daily as needed and potassium 20 mEq daily. Refilled today. B. I did request an echocardiogram for evaluation of her cardiac function as well as shortness of breath and lower extremity edema and the atrial fib. Hopefully this will be done prior to her cardiology consult. 7. Intermittent, chronic constipation 1. We will have her continue to try MiraLAX as directed. 2. She is currently doing stool softeners 1 or 2 daily. She was advised she can increase this to a max of 2 twice daily prn. B. Her electrolytes have been stable as of late. Her last TSH on May 12, 2020 was normal at 1.77. 8. Follow-up plan A. We will plan to see her back after her cardiology consult and determine at that time if we could start her on the durvalumab. She has had significant increase in her performance status. B. Mrs. Denis and her family have been instructed to contact us in the interim should questions or problems arise. Signed By: Shreya Multani-CHARMAINE, AOCNP Jeff Almeida MD <<Signature on File>>
== END 2020-07-14 11:58 | disposition home or self-care (01) ==
LOC: ONCMED 11:58
PROVIDERS: Absent Provider Radiology Radiation Oncology; PCP Internal Medicine; Visit Provider Nurse Practitioner
DX: C34.11 Malignant neoplasm of upper lobe, right bronchus or lung (principal); R60.0 Localized edema; I82.210 Acute embolism and thrombosis of superior vena cava; M79.81 Nontraumatic hematoma of soft tissue; T45.515D Adverse effect of anticoagulants, subsequent encounter; F17.210 Nicotine dependence, cigarettes, uncomplicated; I48.91 Unspecified atrial fibrillation; J44.9 Chronic obstructive pulmonary disease, unspecified; Z79.01 Long term (current) use of anticoagulants; K59.09 Other constipation; Z79.899 Other long term (current) drug therapy
CPT/HCPCS: 36415; 80053; 85025; 99215

== ENCOUNTER 2020-07-30 10:50 | Outpatient (CLI) | payer MEDICARE, MEDICAID, SELFPAY ==
--- NOTE | 2020-07-30 10:55 | USCV_ITS ---
Iram Denis Age: 65 Gender: F : 1955 Exam Date: 07/30/2020 11:18 Ordering Phys: Debby Boyd NP Technologist: Exam Location: [facility] – [place] Indication: ?ef BP: 130 / 80 HR: 94 Rhythm: Sinus Technical Quality: Fair MEASUREMENTS (Male / Female) Normal Values 2D ECHO LV Diastolic Diameter PLAX 4.4 cm 4.2 - 5.9 / 3.9 - 5.3 cm LV Systolic Diameter PLAX 2.4 cm IVS Diastolic Thickness 1.3 cm 0.6 - 1.0 / 0.6 - 0.9 cm IVS Systolic Thickness 1.6 cm LVPW Diastolic Thickness 1.1 cm 0.6 - 1.0 / 0.6 - 0.9 cm LVPW Systolic Thickness 1.3 cm LVOT Diameter 2.0 cm LV Ejection Fraction 2D Teich 76.7 % LA Diameter 3.7 cm LA Width 4.0 cm LA Height 5.5 cm RA Width 3.1 cm RA Height 4.3 cm Aorta at Sinotubular Diameter 2.9 cm M-MODE LV Diastolic Diameter MM 6.8 cm 4.2 - 5.9 / 3.9 - 5.3 cm LV Systolic Diameter MM 4.4 cm LV Ejection Fraction MM Teich 62.7 % IVS Diastolic Thickness MM 0.8 cm 0.6 - 1.0 / 0.6 - 0.9 cm IVS Systolic Thickness MM 1.8 cm LVPW Diastolic Thickness MM 1.1 cm 0.6 - 1.0 / 0.6 - 0.9 cm LVPW Systolic Thickness MM 1.9 cm RV Diastolic Diameter MM 1.7 cm Aortic Annulus Diameter 3.7 cm LA Ao Ratio MM 1.1 MV E Point Septal Separation 1.0 cm FINDINGS Left Ventricle Normal left ventricular size and systolic function, EF 60%.no regional wall motion abnormalities. Right Ventricle The right ventricle is normal in size and function. Right Atrium The right atrium is normal in size. Left Atrium The left atrium is normal in size. Mitral Valve Mild mitral annular calcification. Aortic Valve Thickened aortic valve. Tricuspid Valve No gross abnormalities noted Pulmonic Valve No gross abnormalities noted Pericardium Normal pericardium without effusion. Aorta Normal ascending aorta dimension. CONCLUSIONS Normal left ventricular size and systolic function, EF 60%.no regional wall motion abnormalities. Mild mitral annular calcification. No significant stenotic or regurgitant lesions. There is no pericardial effusion. There are no intracardiac masses. Technically difficult study because of the poor ultrasonic window. Dr Brianne Godoy MD FAC (Electronically Signed) Final Date: 31 July 2020 00:32 S
== END 2020-07-30 10:51 | disposition home or self-care (01) ==
PROVIDERS: PCP Internal Medicine; Visit Provider Nurse Practitioner
DX: R06.02 Shortness of breath (principal); R60.0 Localized edema; I48.91 Unspecified atrial fibrillation
CPT/HCPCS: 93308

== ENCOUNTER 2020-08-07 13:35 | Outpatient (CLI) | payer MEDICARE, MEDICAID, SELFPAY ==
[2020-08-07 14:23] LABS: Basophils # 0.1 10^3/uL (0.0-0.1); Eosinophils # 0.1 10^3/uL (0.0-0.8); Eosinophils % 1.9 %; Hematocrit 40.1 % (37.0-47.0); Hemoglobin 12.9 g/dL (11.5-15.3); Lymphocytes # 0.6 10^3/uL (0.8-4.8); Lymphocytes % 8.8 %; Mean Corpuscular HGB Conc 32.2 g/dL (30.0-36.0); Mean Corpuscular Hemoglobin 28.5 pg (28.0-34.0); Mean Corpuscular Volume 88.5 fL (81-99); Mean Platelet Volume 8.9 fL (7.4-10.4); Monocytes # 0.8 10^3/uL (0.2-0.9); Monocytes % 10.3 %; Neutrophils # 5.62 10^3/uL (1.8-7.7); Neutrophils % 77.3 %; Nucleated Red Blood Cells % 0 %; Platelet Count 354 10^3/cmm (130-400); Red Blood Count 4.53 10^6/uL (4.1-5.3); White Blood Count 7.3 10^3/uL (4.0-10.0)
[2020-08-07 14:57] LABS: Alanine Aminotransferase 29 U/L (0-33); Alkaline Phosphatase 135 IU/L (35-105); Anion Gap 14.2 (5-19); Aspartate Amino Transferase 22 U/L (0-32); Blood Urea Nitrogen 15 mg/dL (8-23); Calcium 8.8 mg/dL (8.5-10.5); Carbon Dioxide 26 mmol/L (22-29); Chloride 94 mmol/L (98-107); Globulin 2.3 g/dL (1.3-4.6); Glomerular Filtration Rate 123.4 mL/min (90-130); Glucose 89 mg/dL (65-115); Osmolality Calculated 270 mOsm/kg (285-295); Potassium 4.2 mmol/L (3.5-5.1); Sodium 130 mmol/L (136-145); Total Bilirubin 0.3 mg/dL (0.15-1.2); Total Protein 6.3 g/dL (6.6-8.7)
--- NOTE | 2020-08-19 16:15 | ONC FU_ITS ---
[facility] Patient Note Patient: Iram Denis Unit #: [id number]: 1955 Dictated By: Shreya MultaniDate of Visit: Aug 07, 2020 Onc MED Follow-Up/Prog Note Chief Complaint: Lung cancer. History of Present Illness: Ms Denis is a 65-year-old woman with adenocarcinoma involving the upper lobe of the right lung, by clinical evaluation stage IIIB (T4, N2, M0). She had presented with hemoptysis in association with worsening shortness of breath and cough. Her chest x-ray on 01/30/2020 showed a 10 cm right hilar/suprahilar mass extending into the right upper lobe consistent with a primary lung malignancy. This was noted to probably invade the mediastinum. Chest CT on 02/04/2020 showed large right hilar and suprahilar mass measuring 11.9 x 6.1 x 7.1 cm. There was slight narrowing of the distal main pulmonary artery and there was narrowing of the adjacent segmental and subsegmental right upper lobe pulmonary branches. There was encasement of the right mainstem bronchus with associated narrowing. There was invasion into the mediastinum and adjacent mediastinal fat, and there was mild narrowing of the distal trachea. There was narrowing with encasement of the right superior vena cava which appeared partially thrombosed. There was evidence of tumor thrombus in the mid segment of the SVC measuring approximately 4.1 cm. There was conglomerate right hilar lymphadenopathy. Interstitial infiltrates throughout the right lung appeared suspicious for lymphangitic metastases. On 02/08/2020 she underwent bronchoscopy/EBUS with endobronchial biopsy from the right upper lobe and with FNA biopsy of station 4R lymph node. Pathology on the station 4R lymph node biopsy was consistent with metastatic adenocarcinoma, favoring lung primary. The tumor cells were TTF-1 positive. PET/CT on 02/09/2020 showed FDG avid right upper lobe mass measuring 12.1 x 5.6 cm. There was mild activity in a 1.5 cm subcarinal lymph node, consistent with metastatic disease. Postobstructive atelectasis with right upper and middle lobe interstitial thickening was suspicious for carcinomatosis. Dr Almeida had seen her initially on 02/20/2020. As her disease appeared to be localized by clinical evaluation, she was recommended to undergo radiation concurrently with weekly carboplatin/paclitaxel chemotherapy. As she had symptoms of impending superior vena cava obstruction and she had poor peripheral venous access, she received several fractions of radiation prior to her week 1 chemotherapy infusion which was administered on 03/12/2020. With that treatment she was able to complete the full dose of paclitaxel, but the carboplatin was interrupted due to development of acute shortness of breath and pulmonary congestion. An infusion reaction was suspected, but given her underlying lung disease and locally advanced malignancy, Dr Almeida was not certain of that. In any case, with additional steroid and pulmonary nebulizers her symptoms improved, and she was able to continue her radiation. On 03/19/2020 she she continue with her week 2 chemotherapy, limited to paclitaxel alone. She tolerated it well. At that point she was showing significant clinical improvement, and she also appeared to be showing significant response by follow-up CT imaging. With her week 3 chemotherapy on 03/27/2020, she restarted paclitaxel in combination with carboplatin, and she tolerated it well. She continued with week 4 treatment on 04/07/2020. On 04/18/2020 she was admitted to the hospital after presenting to the emergency room with fever and shortness of breath. She was just mildly neutropenic. CT pulmonary angiogram showed no evidence of pulmonary embolism. She was noted to have a large right upper lobe mass extending along the mediastinal border with encasement of the pulmonary artery branches to the right middle lobe. The mass was noted to involve the lower superior vena cava and right superior pulmonary vein, but it was noted to be significantly smaller compared to the previous study with much less involvement of the superior vena cava and of the pulmonary vein. She continued anticoagulation with apixaban. Following discharge from the hospital she was able to continue with her radiation. She completed treatment on 04/29/2020 to a total dose of 6000 cGy administered in 30 fractions. She was seen for a follow-up visit. With the improvement on her restaging CT scans, she was felt to be eligible to begin maintenance immunotherapy with durvalumab. However, she had been feeling terrible. She had continued to have intermittent low-grade fever and she just been feeling very weak generally. Her ECOG score was 3. Mrs Denis had removal of her PICC line despite normal blood cultures. She was placed on Levaquin. Her fever has resolved. Mrs. Denis was seen in the emergency room on 06/07/2020 with complaints of increased shortness of breath and higher O2 requirements. She also had concerns of bruising above her umbilicus. She has a large area on her lower abdomen around her umbilicus that is purple in appearance that does appear to be a significant bruise. She was currently on Eliquis (but she is not taking it right now due to the bruising) and has been on Lovenox in the past. She denies any other areas of bleeding. She does have a large ecchymotic spot on her right lateral thigh. She denies any trauma or injury. She did have follow-up chest x-ray on 06/01/2020 in the ER visit. She has a soft tissue density in the right suprahilar region concerning for lymphadenopathy or mass. This is previously noted. She has mild elevation right hemodiafiltration???probable small subpulmonic effusion. Mrs. Denis ireturned for follow-up on July 14, 2020. She was accompanied by her son today. She recently had Holter monitoring for palpitations. It did note that she had atrial fib 28.5% of the time. The maximum heart rate was recorded at 146 bpm and minimum was 71 bpm. The study included an atrial fib burden of 28.56%. The longest episode was 14 hours and 26 minutes on day 1. She also had CT of the abdomen pelvis with contrast on June 25, 2020 for concerns of significant abdominal wall bruising and normal PT/PTT as well mid to lower quadrant abdominal pain and her history of lung cancer. There were no acute intra-abdominal or pelvic abnormalities. There were no metastatic bony lesions seen. She did have degenerative changes of the lower thoracic and all the lumbar vertebral bodies with this space narrowing at L5-S1. There was no appendicitis or diverticulitis. There was no adenopathy ascites or masses noted. There was a cystic structure in the right rectus abdominis which was not previously present but could represent a small hematoma which would correlate with her abdominal wall hematoma/bleeding in her recent past. Her Xarelto had been placed on hold due to the bleeding. She has not yet started on the planned immunotherapy after completing her radiation in April. She had declining performance status and required removal of her PICC line for fever. She then developed the hematoma in the abdominal wall and right lateral thigh. Xarelto was placed on hold. Her Xarelto was resumed at 15 mg daily on 07/14/2020 given the intermittent atrial fib. She has tolerated that well. Mrs. Denis is here today for follow-up. She has not yet seen cardiology as she missed her appointment . We are calling to reschedule that now. I did speak with her and her son regarding initiating the immunotherapy but really would like for her to follow with cardiology first. Her visit from Dr. Meadows's office on 07/16/2020 reported that she was on amiodarone 200 mg daily however we do not have this on her med list and she did not bring her medications with her today. She states overall she continues to feel stronger pretty much every day. She states she is ready to start treatment when we are ready to. She continues to have palpitations but her breathing overall is better since Dr. Meadows added the Ellipta. She denies any chest pain. She denies any orthopnea. She is had no fever chills or any signs of infection. She denies any bowel or bladder issues. Her ECOG is 2. Past Medical History: Anxiety/depression Hypertension Migraine headaches Atrial fibrillation in 2020 Past Surgical History: Cholecystectomy Flu Vaccine in 2019 - Given in right deltoid/lc Pneumonia Vaccine in 2019 - Given in left deltoid/lc Bronchoscopy with EBUS, right upper lobe endobronchial biopsy, FNA biopsy of station 4R lymph node in 2019 Cone biopsy for cervical cancer in 1987 Allergies: No Known Allergies. Medications: Ipratropium-Albuterol 3 mL (of 0.5-2.5 (3) mg/3mL) Solution Inhalation four times a day PRN KlonoPIN 1 Tablet (of 0.5 mg) Oral daily oxyCODONE HCl 1 - 2 Tablet (of 5 mg) Tablet Oral q 4 hours Saline Nasal Hancock 1 (0.65 %) Solution Nasal daily Zoloft 1 Tablet (of 50 mg) Oral daily Family History: Ms. Denis's father is : heart disease, and hypertension, and myocardial infarction, and stroke. Father of stroke. Mother is also , cause unknown to the patient. A brother and a sister of lung cancer. Another sister had kidney failure. 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 She is a daily smoker who has smoked 0.5 packs/day for 45 years. She is a former drinker. She has indicated exposure to the following products: cigarettes. Review Of Symptoms: <See Above> Vital Signs: Performed on Aug 07, 2020 15:38 Height - 66.00 in Weight - 136 lbs (HIGH) BSA - 1.70 sq.m BMI - 21.95 Temperature - 98.4 F Pulse - 86 /min Respiration - 18 /min BP - 159/92 mm(hg) (HIGH) O2 Sat - 94 % (LOW) Pain - 8 Fatigue - 0,2 - Ambulatory/capable of all self-care, unable to perform any work activities. Up and about more than 50% of waking hours. (ECOG) Physical Examination: Constitutional Alert, oriented, no acute distress. Skin pink, warm and dry. Head Normocephalic; atraumatic. Eyes Conjunctivae and sclerae are clear and without icterus. Pupils are reactive and equal. ENMT No oral exudates, ulcers, masses, thrush or mucositis. Oropharynx clear. Tongue normal. Neck Supple without masses or thyromegaly. Hematologic/Lymphatic No tender or palpable lymph nodes in the cervical or supraclavicular areas. Respiratory Lungs are clear to auscultation without rhonchi or wheezing. Cardiovascular Regular rate and rhythm of heart without murmurs,clicks, gallops or rubs. Abdomen Non-tender, non-distended, no masses or ascites. Good bowel sounds noted in all quads. No guarding or rebound tenderness. No pulsatile masses. No evidence on bruising on abdomen. Back/Spine Non-tender to palpation. Extremities No visible deformities, no cyanosis, clubbing or edema. Musculoskeletal No tenderness or swelling, normal range of motion without obvious weakness. Integumentary No rashes or lesions. The area of ecchymosis on the right lateral thigh has resolved. Neurologic No sensory or motor deficits, normal cerebellar function. In wheelchair for mobility assistance. Psychiatric Alert and oriented times three. Coherent speech. Verbalizes understanding of our discussions today. Laboratory:Test performed on Aug 07, 2020 13:50 Sodium 130 mmol/L Potassium 4.2 mmol/L Chloride 94 mmol/L CO2 26 mmol/L Anion Gap 14.2 BUN 15 mg/dL Creatinine 0.5 mg/dL Cr Clearance (Est) 101.4500 mL/min eGFR 123.4 mL/min Glucose 89 mg/dL Osmolality - Calculated 270 mOsm/kg Calcium 8.8 mg/dL Protein, Total 6.3 g/dL Albumin 4.0 g/dL Globulin 2.3 g/dL Bilirubin, Total 0.3 mg/dL ALT (SGPT) 29 U/L AST (SGOT) 22 U/L Alkaline Phosphatase 135 IU/L WBC 7.3 10 3/uL RBC 4.53 10 6/uL HGB 12.9 g/dL HCT 40.1 % MCV 88.5 fL MCH 28.5 pg MCHC 32.2 g/dL RDW 17.0 % Platelet Count 354 10 3/cmm MPV 8.9 fL Neutrophils 5.62 10 3/uL Lymphocytes 0.6 10 3/uL Monocytes 0.8 10 3/uL Eosinophils 0.1 10 3/uL Basophils 0.1 10 3/uL Neutrophil % 77.3 % Lymphocyte % 8.8 % Monocyte % 10.3 % Eosinophil % 1.9 % Basophils % 1.0 % NRBC % 0 % Test performed on Jun 17, 2020 15:15 PT 13.70 SECONDS INR 1.02 Test performed on May 12, 2020 14:35 TSH 1.77 uIU/mL Test performed on May 08, 2020 14:45 Blood Culture R3 Test performed on Apr 15, 2020 08:48 CBC Slide Review Slide Review Perform SLIDE REVIEW AGREES WITH AUTOMATED RESULTS ST Test performed on Apr 07, 2020 09:45 Ferritin 903 ng/mL Iron 64 mcg/dL Iron Binding Capacity (TIBC) 317 mcg/dl % Iron Saturation 20.1 % UIBC 253 mcg/dL Impression: 1. Adenocarcinoma involving the upper lobe of the right lung, by clinical evaluation stage at least IIIB (T4, N2, M0). 2. She underwent bronchoscopy/EBUS with right upper lobe endobronchial biopsy and with FNA biopsy of station 4R lymph node on 02/08/2020. 3. Hypertension. 4. COPD. 5. She has history of migraine headaches. 6. She has remote history of cervical cancer, treated with cone biopsy. 7. Anxiety/depression. 8. Nicotine dependence. Plan/Problems Addressed at this Visit: 1. Adenocarcinoma involving the upper lobe of the right lung, by clinical evaluation stage at least IIIB (T4, N2, M0). She has undergone ongoing radiation concurrently with weekly carboplatin/paclitaxel chemotherapy. Her chemotherapy was complicated by suspected infusion reaction with her initial dose of carboplatin. The carboplatin was held at week 2, but reinstituted with her weeks 3 and 4 treatments. She had significant clinical improvement during her chemoradiation. However, on 04/17/2019 she required admission to the hospital for shortness of breath/hypoxia and fever. Her repeat CT scans showed significant improvement in the right upper lobe lung cancer compared to the March 2020 CT. In particular, there was much less involvement of the superior vena cava and of the pulmonary vein. She initially improved on empiric antibiotic therapy. However, she continued to have intermittent fever. She had been very weak generally, and she has had significant decline in her performance status. She had removal of her PICC line despite normal blood cultures. She was placed on Levaquin prophylactically and her fever did resolve. We are waiting for improvement in her performance status before initiating immunotherapy. She is slowly improving. 2. 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 It has shown improvement by followup CT scan. She was on anticoagulation with Xarelto but she is currently holding it due to a large bruising on her abdomen and thigh. A. PT/PTT for evaluation for possible bleeding resulting in ecchymosis on abdomen and thigh was normal and followup CT scan On June 25, 2020 of the abdomen did show A cystic structure in the right rectus abdominis which was not previously present but could represent a small hematoma . Her anticoagulation has remained on hold. 3. She was having palpitations and I had requested a Holter monitor. A. This was performed on 06/24/2020. It does show an atrial fibrillation burden of 28.5% with the fastest episode at 146 bpm and the longest episode was 14 hours and 26 minutes. B. We will now have her resume her Xarelto at 15 mg daily due to her history of bleeding (abdominal wall and lateral thigh/hematoma ) we will not resume her at full dosing. C. I have also requested referral to cardiology for management of atrial fibrillation. She apparently had an appointment that she missed and we are now calling to reschedule that. I am hesitant to resume her immunotherapy until we have cardiology consult regarding the atrial for burden of 28.5% on her echocardiogram from 06/24/2020. D. Her labs today were reviewed in detail and discussed with . Mrs. Denis and her son. WBC 7.3, hemoglobin 12.9, platelets 259,000 ANC is 5620. Potassium 4.2 random glucose 89 creatinine 0.5 LFTs are normal alk phos was 135 improved from 140 on her last visit. Her TSH on May 12, 2020 was 1.77. E. Her morphine extended release was changed on 07/24/2020 to Oxy XR 5 mg due to nausea and vomiting related to the morphine. The oxycodone has given her pain control in the past. 4. She has severe underlying COPD. Currently stable. A. Mrs. Denis was last seen by Dr. Meadows on 07/16/2020. He did start her on Ellipta 62.5-25 mcg per actuation???1 inhalation daily for 30 days with 4 refills. He reports that she is actively smoking and has emphysema/COPD. His medication list does include amiodarone 200 mg daily as noted in regards to cardiac medications. 5. Mucositis A. She had significant mucositis with evidence of candidiasis as well as herpes simplex virus. Resolved at present. B. She required treatment with Famvir 500 mg 3 times daily orally, fluconazole 100 mg p.o. daily for a minimum of 14 days. 6. Lower extremity edema A. This is chronic and positional she will continue Lasix 20 mg orally twice daily as needed and potassium 20 mEq daily. Refilled today. B. I did request an echocardiogram for evaluation of her cardiac function as well as shortness of breath and lower extremity edema and the atrial fib. Hopefully this will be done prior to her cardiology consult. 7. Intermittent, chronic constipation A. We will have her continue to try MiraLAX as directed. B. She is currently doing stool softeners 1 or 2 daily. She was advised she can increase this to a max of 2 twice daily prn. 8. Follow-up plan A. We will plan to see her back after her cardiology consult and determine at that time if we could start her on the durvalumab. She has had significant increase in her performance status. B. Mrs. Denis and her family have been instructed to contact us in the interim should questions or problems arise. Signed By: Shreya Multani-, [facility] Jeff Almeida MD <<Signature on File>>
== END 2020-08-07 13:36 | disposition home or self-care (01) ==
PROVIDERS: PCP Internal Medicine; Visit Provider Nurse Practitioner
DX: C34.11 Malignant neoplasm of upper lobe, right bronchus or lung (principal); D50.9 Iron deficiency anemia, unspecified; I10 Essential (primary) hypertension; J44.9 Chronic obstructive pulmonary disease, unspecified; G43.919 Migraine, unspecified, intractable, without status migrainosus; F41.9 Anxiety disorder, unspecified; F32.9 Major depressive disorder, single episode, unspecified; F17.210 Nicotine dependence, cigarettes, uncomplicated; Z79.899 Other long term (current) drug therapy; Z85.41 Personal history of malignant neoplasm of cervix uteri; Z92.21 Personal history of antineoplastic chemotherapy
CPT/HCPCS: 36415; 80053; 85025; 99214

== ENCOUNTER 2020-09-04 13:04 | Outpatient (CLI) | payer MEDICARE, MEDICAID, SELFPAY ==
[2020-09-04 14:49] LABS: Basophils # 0.1 10^3/uL (0.0-0.1); Basophils % 0.7 %; Eosinophils # 0.1 10^3/uL (0.0-0.8); Eosinophils % 1.4 %; Hematocrit 45.1 % (37.0-47.0); Hemoglobin 14.3 g/dL (11.5-15.3); Lymphocytes # 0.7 10^3/uL (0.8-4.8); Lymphocytes % 7.1 %; Mean Corpuscular HGB Conc 31.7 g/dL (30.0-36.0); Mean Corpuscular Hemoglobin 27.6 pg (28.0-34.0); Mean Corpuscular Volume 87.1 fL (81-99); Mean Platelet Volume 9.1 fL (7.4-10.4); Monocytes # 0.7 10^3/uL (0.2-0.9); Monocytes % 7.5 %; Neutrophils # 8.21 10^3/uL (1.8-7.7); Neutrophils % 82.9 %; Nucleated Red Blood Cells % 0 %; Platelet Count 384 10^3/cmm (130-400); Red Blood Count 5.18 10^6/uL (4.1-5.3); Red Cell Distribution Width 15.8 % (12.1-15.1); White Blood Count 9.9 10^3/uL (4.0-10.0)
[2020-09-04 15:07] LABS: Alanine Aminotransferase 40 U/L (0-33); Albumin Level 4.7 g/dL (3.5-5.2); Alkaline Phosphatase 144 IU/L (35-105); Anion Gap 16.3 (5-19); Aspartate Amino Transferase 27 U/L (0-32); Blood Urea Nitrogen 14 mg/dL (8-23); Calcium 9.2 mg/dL (8.5-10.5); Carbon Dioxide 25 mmol/L (22-29); Chloride 98 mmol/L (98-107); Globulin 2.4 g/dL (1.3-4.6); Glucose 91 mg/dL (65-115); Osmolality Calculated 280 mOsm/kg (285-295); Potassium 4.3 mmol/L (3.5-5.1); Sodium 135 mmol/L (136-145); Total Bilirubin 0.4 mg/dL (0.15-1.2); Total Protein 7.1 g/dL (6.6-8.7)
== END 2020-09-04 13:05 | disposition home or self-care (01) ==
LOC: ONCMED 13:07
PROVIDERS: PCP Internal Medicine; Visit Provider Internal Medicine Medical Oncology
DX: C34.11 Malignant neoplasm of upper lobe, right bronchus or lung (principal)
CPT/HCPCS: 36415; 80053; 85025

== ENCOUNTER 2020-09-07 01:40 | Emergency (ER) | payer MEDICARE, MEDICAID, SELFPAY ==
[2020-09-07 01:45] VITALS: BP 165/99; PULSE 89; RESP 20; TEMP 36.5; O2SAT 99; BMI 23.3
--- NOTE | 2020-09-07 01:47 | ECG_ITS ---
[facility] Test Date: 2020-09-07 Pat Name: Iram Denis Department: Room: Gender: Female [employer]: : 1955 Requested By: Loretta Dean Order Number: [id number] Titus MD: Blair Adams M.D. Measurements Intervals [place] [facility] Rate: 87 P: 65 IL: 194 QRS: 73 QRSD: 109 T: 73 QT: 395 QTc: 477 Interpretive Statements SINUS RHYTHM POSSIBLE LEFT ATRIAL ENLARGEMENT [-0.1mV P WAVE IN V1/V2] Compared to ECG 04/17/2020 21:00:31 T-wave abnormality no longer present Possible ischemia no longer present Electronically Signed On 09-07-2020 16:01:08 CDT by Blair Adams M.D. [email or web address]
--- NOTE | 2020-09-07 01:48 | XRR_ITS ---
PROCEDURE INFORMATION: Exam: XR Chest Exam date and time: 09/07/2020 1:52 AM Age: 65 years old Clinical indication: Cough; Additional info: Dizzy TECHNIQUE: Imaging protocol: XR of the chest. Views: 1 view. COMPARISON: CR XR CHEST 1V PORTABLE [id number] 06/07/2020 10:23 AM, CHEST CT DATED 04/17/2020. FINDINGS: Lungs: A large suprahilar/paratracheal mass is again seen on the right, with new partial right lung collapse, ipsilateral shifting of the mediastinal structures, small right pleural effusion and airspace opacities in the aerated lung. Minimal left basilar atelectasis noted. The left lung is otherwise clear. No pneumothorax. Pleural spaces: See Lungs finding. Heart/Mediastinum: See Lungs finding. No cardiomegaly. Bones/joints: Unremarkable. XR/XR chest 1V portable [id number] IMPRESSION: Imaging findings suggestive of interval increase in size of right suprahilar mass, resulting in partial collapse of the right lung with ipsilateral shifting of the mediastinal structures, small pleural effusion, and atelectasis/postobstructive pneumonitis/the pic spread of disease.
[2020-09-07 01:54] LABS: Basophils # 0.1 10^3/uL (0.0-0.1); Basophils % 0.5 %; Eosinophils # 0.1 10^3/uL (0.0-0.8); Eosinophils % 1.1 %; Hematocrit 43.1 % (37.0-47.0); Hemoglobin 13.9 g/dL (11.5-15.3); Lymphocytes # 0.7 10^3/uL (0.8-4.8); Lymphocytes % 7.3 %; Mean Corpuscular HGB Conc 32.3 g/dL (30.0-36.0); Mean Corpuscular Hemoglobin 27.9 pg (28.0-34.0); Mean Corpuscular Volume 86.4 fL (81-99); Mean Platelet Volume 8.9 fL (7.4-10.4); Monocytes # 0.8 10^3/uL (0.2-0.9); Monocytes % 8.2 %; Neutrophils % 82.6 %; Nucleated Red Blood Cells % 0 %; Platelet Count 349 10^3/cmm (130-400); Red Blood Count 4.99 10^6/uL (4.1-5.3); Red Cell Distribution Width 15.4 % (12.1-15.1); White Blood Count 9.4 10^3/uL (4.0-10.0)
--- NOTE | 2020-09-07 01:55 | CTR_ITS ---
PROCEDURE INFORMATION: Exam: CT Cervical Spine Without Contrast Exam date and time: 09/07/2020 2:01 AM Age: 65 years old Clinical indication: Pain and injury or trauma; Blunt trauma; Injury details: Fall 1 week ago neck pain since TECHNIQUE: Imaging protocol: Computed tomography images of the cervical spine without contrast. Radiation optimization: All CT scans at this facility use at least one of these dose optimization techniques: automated exposure control; mA and/or kV adjustment per patient size (includes targeted exams where dose is matched to clinical indication); or iterative reconstruction. COMPARISON: CR XR knees AP WB w LT lmt ORTH 05/28/2019 3:38 PM RADIATION DOSE METRICS: Total DLP (mGy-cm): 794.3 FINDINGS: Bones/joints: No acute fracture. Normal alignment. Discs/Spinal canal/Neural foramina: There is a diffuse loss of disc height seen within the cervical spine compatible with degenerative disc disease. Mediastinal space: There is a right suprahilar and paramediastinal soft tissue mass again seen as reported on prior CT examinations of the chest (03/21/2020, 04/17/2020). Lungs: Strandy opacities are seen in the lung apices bilaterally compatible with parenchymal and pleural scarring. Pleural spaces: There is a small right pleural effusion seen. Soft tissues: Unremarkable. CT/CT cervical spin wo con* [id number] IMPRESSION: 1. There are no acute osseous findings. 2. Right upper lobe suprahilar and paramediastinal mass partially imaged today 3. Small right pleural effusion Radiation Dose CTDIVOL = (mGy): DLP = 794.3 (mGy-cm)
--- NOTE | 2020-09-07 01:55 | CTR_ITS ---
PROCEDURE INFORMATION: Exam: CT Head Without Contrast Exam date and time: 09/07/2020 2:01 AM Age: 65 years old Clinical indication: Pain; Dizziness; Headache not specified; Additional info: All and dizzy TECHNIQUE: Imaging protocol: Computed tomography of the head without contrast. Radiation optimization: All CT scans at this facility use at least one of these dose optimization techniques: automated exposure control; mA and/or kV adjustment per patient size (includes targeted exams where dose is matched to clinical indication); or iterative reconstruction. COMPARISON: MR head wo/w con [id number] 05/19/2020 8:22 AM RADIATION DOSE METRICS: Total DLP (mGy-cm): 836.83 FINDINGS: Brain: There is mild diffuse cerebral atrophy. Some subtle areas of hypoattenuation are seen in the deep white matter of the cerebral hemispheres bilaterally compatible mild deep white matter microvascular disease. Cerebral ventricles: No ventriculomegaly. Paranasal sinuses: Visualized sinuses are unremarkable. No fluid levels. Mastoid air cells: Visualized mastoid air cells are well aerated. Bones/joints: Unremarkable. No acute fracture. Soft tissues: Unremarkable. CT/CT head wo con* [id number] IMPRESSION: There are no acute intracranial findings. Radiation Dose CTDIVOL = (mGy): DLP = 836.83 (mGy-cm)
--- NOTE | 2020-09-07 01:57 | ED_ITS ---
Documented by User: Loretta Dean 09/07/20 02:00 HPI - Dizziness General: Chief Complaint: Dizziness Stated Complaint: nausea, vomiting dizziness Time Seen by Provider: 09/07/20 01:46 Source: patient Mode of arrival: EMS Limitations: no limitations History of Present Illness: MD elicited complaint: dizziness Pertinent past history: other (lung cancer) Onset (ago): day(s) (4) Timing: gradual onset Severity: moderate Description: lightheadedness and off-balance Context: trauma (pt did fall and hit her head 5 days ago) History of similar symptoms: No Exacerbating factors: nothing Relieving factors: nothing Associated symptoms: Reports no associated symptoms, headache(s) and nausea; Denies change in hearing, chest pain, chills, diaphoresis, ear discharge, malaise, nasal congestion, palpitations, syncope or tinnitus Associated neuro symptoms: Reports no associated symptoms Review of Systems Const: Denies: fever(s), chills, body aches, change in appetite, change in weight, fatigue, malaise or diaphoresis Eyes: Denies: change in vision, blurry vision, blind spots, photophobia, eye discomfort, eye discharge, eye redness, floaters or seeing flashes ENMT: Denies: throat pain, uvular edema, enlarged tonsils, odynophagia, hoarseness, mouth pain, swelling of lips/tongue, oral sores, bleeding gums, dental pain, dry mouth, ear or mastoid pain, ear discharge, change in hearing, tinnitus, disequilibrium, nasal discharge, nasal congestion, post nasal drip or sinus pain Card: Denies: chest pain, palpitations, irregular heart rhythm, edema, swelling of feet/ankles, lightheadedness, syncope, pre-syncope, dyspnea on exertion, orthopnea, leg pain with exertion or acrocyanosis Resp: Denies: dyspnea, productive cough, non-productive cough, wheezing, stridor, pain on inspiration, change in phlegm color, hemoptysis or chest congestion GI: Reports: nausea : Denies: flank pain, difficulty voiding, dysuria, urinary frequency, urinary urgency, urinary hesitancy or hematuria Musc: Denies: neck pain, back pain, extremity pain, extremity swelling, joint pain, joint swelling, joint redness, joint warmth or deformity Skin/Breast: Denies: rash, pruritus, erythema, sores, new lesions, changes in skin color or dry skin Neuro: Reports: headache(s) and dizziness Psych: Denies: anxiety, depression, suicidal ideation or homicidal ideation Endo: Denies: polyuria, polydipsia, tired all the time, cold intolerance, excessive sweating, flushing, hot flashes or heat intolerance Delfin/Lymph: Denies: easy bruising, easy bleeding, petechiae, purpura, enlarged lymph nodes or tender lymph nodes All/Imm: Denies: urticaria, throat swelling, tongue swelling, facial swelling, acute wheezing or itchy eyes PFSH ED PFSH: Medical History Hyponatremia Lung cancer Lung mass Osteoarthritis of left knee Panic disorder [episodic paroxysmal anxiety] Port-A-Cath in place 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 Surgical History S/P bronchoscopy Family History Other CAD (coronary artery disease) Cancer Dementia Hypertension Lung disease Stroke Denies family history of Diabetes Hyperlipidemia Chronic kidney disease (CKD) Family history of premature coronary artery disease Social History Smoking and tobacco status: current every day smoker cigarettes Years cigarettes smoked: 44 [ Other cigarette details: Hx of 1 PPD x 45 Years ] Quit status (tobacco): considering quitting Smoking risk assessment/counseling performed?: Yes Tobacco counseling given: counseling >3 minutes Alcohol intake: current Alcohol intake frequency: few times a month Alcohol type: beer Counseling given: No Counseling given: No Lives independently: Yes Household members: family Marital status: Current occupational status: retired History of recent travel: No Current gender identity: Female Physical Exam Const: COMMON NORMALS: no acute distress, patient oriented x3, healthy appearing, alert and well nourished GENERAL APPEARANCE: cooperative, comfortable, well kempt and well developed; not ill appearing ORIENTATION/CONSCIOUSNESS: Yes awake, Yes oriented to person, Yes oriented to place and Yes oriented to time HENMT: COMMON NORMALS: normocephalic, atraumatic, hearing grossly normal bilaterally, external ears normal, EAC's normal, TM's normal bilaterally, Normal external nose present, Normal nasal mucous membranes and turbinates present and moist oral mucous membranes HEAD & SCALP: normal to inspection, normocephalic and atraumatic FACE & SINUS: normal facial exam, sinuses nontender and face symmetric NOSE: Normal external nose present, Normal nares present, Normal nasal mucous membranes and turbinates present, No nasal discharge present and Abnormal external nose present EXTERNAL EAR: Yes external ears normal and Yes mastoids normal EXTERNAL AUDITORY CANAL: EAC's normal TYMPANIC MEMBRANE: TM's normal bilaterally MOUTH: Normal oral and palatal mucosa present, lip normal, tongue normal and Normal salivary glands and ducts present THROAT: no uvular edema Eye: COMMON NORMALS: Equal, round and reactive pupils present, EOMs intact bilaterally, conjunctivae normal, no scleral icterus and no papilledema GENERAL EYE: appearance normal, both eyes and all related structures EYELID: eyelids normal CONJUNCTIVA: Yes conjunctivae normal SCLERA: sclerae normal CORNEA: Yes corneas normal PUPIL: Yes Equal, round and reactive pupils present DIRECT OPHTHALMOSCOPY: Yes no papilledema Neck/C-Spine: COMMON NORMALS: full ROM, no lymphadenopathy, supple, no meningeal signs, no JVD and Thyroid normal GENERAL: Yes normal visual inspection and Yes trachea midline THYROID: Thyroid normal CERVICAL SPINE: Yes cervical ROM normal Lymph: LYMPHATIC: no lymphadenopathy noted and no lymphedema noted Chest: COMMONS NORMALS: normal inspection of the chest and normal palpation of entire chest wall Resp: COMMON NORMALS: normal respiratory effort, No retractions, No use of accessory muscles and clear to auscultation bilaterally EFFORT & INSPECTION: Yes able to speak in complete sentences and Yes symmetric chest movement AUSCULTATION: clear to auscultation bilaterally Cardio: COMMON NORMALS: no JVD, regular rate and regular rhythm RATE: regular rate RHYTHM: regular rhythm GI: COMMON NORMALS: Normal to inspection, nondistended, normoactive bowel sounds present, Soft to palpation, non-tender, No hepatosplenomegaly present, no masses and no bruits INSPECTION: Yes normal to inspection AUSCULTATION: Yes normoactive bowel sounds PALPATION: Yes Soft to palpation and Yes No hepatosplenomegaly present PERCUSSION: normal to percussion RECTAL EXAM: deferred : COMMON NORMALS: Yes no CVA tenderness, Yes normal external appearance, Yes normal appearance of the vagina, Yes normal appearance of the cervix, Yes normal bimanual exam, Yes No adnexal tenderness and Yes no masses BLADDER/KIDNEY EXAM: Yes no CVA tenderness BIMANUAL EXAM - VAGINA & UTERUS: Yes normal bimanual exam Back/Pelvis: COMMON NORMALS: no CVA tenderness, thoracic and lumbar spine normal to inspection, no thoracic nor lumbar tenderness, thoraco-lumbar ROM normal and straight leg raise negative bilaterally THORACIC SPINE/UPPER BACK: Yes normal to inspection LUMBAR SPINE/LOWER BACK: Yes normal to inspection Extremity: COMMON NORMALS: normal to inspection, full ROM and capillary refill normal GENERAL: Yes normal exam except as noted Neuro: COMMON NORMALS: patient oriented x3, CN's II-XII intact bilaterally, moves all extremities, no focal motor deficits, no sensory deficits noted, deep tendon reflexes 2+ bilaterally and gait normal SENSORIUM/ORIENTATION: Yes alert, Yes oriented to person, Yes oriented to place and Yes oriented to time MENINGEAL SIGNS: Yes no meningeal signs CRANIAL NERVES: Yes CN normal except as noted SPEECH: speech normal GAIT: Yes Normal gait present SENSORY EXAM: Yes extremities MOTOR EXAM: 5/5 motor strength present throughout Psych: COMMON NORMALS: mental status grossly normal, Normal thought process present, cooperative, normal affect, speech normal, activity/motor behavior normal, denies hallucinations, denies homicidal ideation and denies suicidal ideation APPEARANCE: Yes grossly normal and Yes well kempt ATTITUDE: Yes calm ACTIVITY/MOTOR BEHAVIOR: Yes appropriate eye contact SPEECH: Yes normal speech THOUGHT PROCESS: Normal thought process present THOUGHT CONTENT: Yes Normal thought content present ATTENTION/CONCENTRATION: Yes attention grossly intact MEMORY/COGNITION: Yes memory grossly intact INSIGHT: Good insight present (Psych) JUDGEMENT: Good judgement present (Psych) Skin: COMMON NORMALS: no rashes or lesions noted, no wounds, turgor normal, no jaundice, no petechiae and no mottling GENERAL SKIN EXAM: no rashes or lesions noted and turgor normal Course ED course: Care transitioned to Dr. Villalobos at this time Vital Signs: Vital signs: Vital Signs Temperature 97.7 F 09/07/20 01:45 Pulse Rate 77 09/07/20 05:24 Respiratory Rate 16 09/07/20 05:24 Blood Pressure 152/95 09/07/20 05:24 Pulse Oximetry 99 09/07/20 05:24 MDM - Dizziness Lab Data: Labs: Lab Results 09/07/20 09/07/20 09/07/20 Range/Units 01:43 01:43 01:43 WBC 9.4 (4.0-10.0) 10^3/ uL RBC 4.99 (4.1-5.3) 10^6/u L Hgb 13.9 (11.5-15.3) g/dL Hct 43.1 (37.0-47.0) % MCV 86.4 (81-99) fL MCH 27.9 L (28.0-34.0) pg MCHC 32.3 (30.0-36.0) g/dL RDW 15.4 H (12.1-15.1) % Plt Count 349 (130-400) 10^3/c mm MPV 8.9 (7.4-10.4) fL Neut % (Auto) 82.6 % Lymph % (Auto) 7.3 % [place] % (Auto) 8.2 % Eos % (Auto) 1.1 % Baso % (Auto) 0.5 % Neut # (Auto) 7.80 H (1.8-7.7) 10^3/u L Lymph # (Auto) 0.7 L (0.8-4.8) 10^3/u L [place] # (Auto) 0.8 (0.2-0.9) 10^3/u L Eos # (Auto) 0.1 (0.0-0.8) 10^3/u L Baso # (Auto) 0.1 (0.0-0.1) 10^3/u L Nucleated RBC % (a uto) 0 % Nucleated RBCs # 0.0 /100WBC Sodium 133 L (136-145) mmol/L Potassium 4.2 (3.5-5.1) mmol/L Chloride 94 L (98-107) mmol/L Carbon Dioxide 27 (22-29) mmol/L Anion Gap 16.2 (5-19) BUN 17 (8-23) mg/dL Creatinine 0.5 (0.5-0.9) mg/dL GFR Calculation 123.4 (90-130) mL/min Glucose 121 H (65-115) mg/dL Calculated Osmolal ity 279 L (285-295) mOsm/k g Calcium 9.6 (8.5-10.5) mg/dL Total Bilirubin 0.5 (0.15-1.2) mg/dL AST 23 (0-32) U/L ALT 33 (0-33) U/L Alkaline Phosphata se 152 H (35-105) IU/L Troponin T Baselin e 17 H (0-10) ng/L Troponin T 120 Min [place] (0-10) ng/L Delta Troponin T (0-10) ABS# Total Protein 6.8 (6.6-8.7) g/dL Albumin 4.7 (3.5-5.2) g/dL Globulin 2.1 (1.3-4.6) g/dL Lipase 24 (13-60) U/L Urine Color (Yellow) Urine Appearance (CLEAR) Urine pH (5-7) Ur Specific Gravit y (1.005-1.030) Urine Protein (Negative) Urine Glucose (UA) (Normal) Urine Ketones (Negative) Urine Blood (Negative) Urine Nitrate (Negative) Urine Bilirubin (Negative) Urine Urobilinogen (Negative) mg/dL Ur Leukocyte Stephanie ase (Negative) Urine RBC (0-2) /hpf Urine WBC (0-5) /hpf Ur Squamous Epith Cells (0-5) /hpf Amorphous Sediment /hpf Urine Bacteria (NONE) /hpf 09/07/20 09/07/20 Range/Units 03:11 04:15 WBC (4.0-10.0) 10^3/ uL RBC (4.1-5.3) 10^6/u L Hgb (11.5-15.3) g/dL Hct (37.0-47.0) % MCV (81-99) fL MCH (28.0-34.0) pg MCHC (30.0-36.0) g/dL RDW (12.1-15.1) % Plt Count (130-400) 10^3/c mm MPV (7.4-10.4) fL Neut % (Auto) % Lymph % (Auto) % [place] % (Auto) % Eos % (Auto) % Baso % (Auto) % Neut # (Auto) (1.8-7.7) 10^3/u L Lymph # (Auto) (0.8-4.8) 10^3/u L [place] # (Auto) (0.2-0.9) 10^3/u L Eos # (Auto) (0.0-0.8) 10^3/u L Baso # (Auto) (0.0-0.1) 10^3/u L Nucleated RBC % (a uto) % Nucleated RBCs # /100WBC Sodium (136-145) mmol/L Potassium (3.5-5.1) mmol/L Chloride (98-107) mmol/L Carbon Dioxide (22-29) mmol/L Anion Gap (5-19) BUN (8-23) mg/dL Creatinine (0.5-0.9) mg/dL GFR Calculation (90-130) mL/min Glucose (65-115) mg/dL Calculated Osmolal ity (285-295) mOsm/k g Calcium (8.5-10.5) mg/dL Total Bilirubin (0.15-1.2) mg/dL AST (0-32) U/L ALT (0-33) U/L Alkaline Phosphata se (35-105) IU/L Troponin T Baselin e (0-10) ng/L Troponin T 120 Min [place] 13.26 H (0-10) ng/L Delta Troponin T -3.74 L (0-10) ABS# Total Protein (6.6-8.7) g/dL Albumin (3.5-5.2) g/dL Globulin (1.3-4.6) g/dL Lipase (13-60) U/L Urine Color Yellow (Yellow) Urine Appearance Sl cloudy A (CLEAR) Urine pH 7 (5-7) Ur Specific Gravit y 1.015 (1.005-1.030) Urine Protein Neg (Negative) Urine Glucose (UA) Norm (Normal) Urine Ketones Negative (Negative) Urine Blood Neg (Negative) Urine Nitrate Negative (Negative) Urine Bilirubin Neg (Negative) Urine Urobilinogen Norm (Negative) mg/dL Ur Leukocyte Stephanie ase Negative (Negative) Urine RBC None (0-2) /hpf Urine WBC None (0-5) /hpf Ur Squamous Epith Cells 0-4 H (0-5) /hpf Amorphous Sediment 2+ /hpf Urine Bacteria Trace (NONE) /hpf Discharge Plan Discharge Patient Disposition: Home Clinical Impression: Headache due to injury of head and neck Concussion Qualifiers: Encounter type: initial encounter Loss of consciousness presence/duration: without LOC Qualified Code(s): S06.0X0A - Concussion without loss of consciousness, initial encounter Condition: Stable Prescriptions: New Zofran 4 mg tablet 4 mg PO Q6H PRN (Reason: nausea and vomiting) Qty: 10 RF: 0 No Action Anoro Ellipta 62.5-25 mcg/actuation blister with device 1 inh inhalation DAILY 30 Days Qty: 60 RF: 4 clonazepam 0.5 mg tablet 0.5 mg PO TID PRN (Reason: Anxiety) Qty: 90 RF: 2 Zoloft 100 mg tablet 150 mg PO DAILY@0600 Qty: 45 RF: 2 lorazepam 1 mg tablet 0.5 - 1 mg PO TID PRN (Reason: Nausea) RF: 0 albuterol sulfate [ProAir HFA] 90 mcg/actuation HFA aerosol inhaler 2 puff INHALATION QID PRN (Reason: Shortness Of Breath) RF: 0 ipratropium-albuterol 0.5 mg-3 mg(2.5 mg base)/3 mL solution for nebulization 3 ml INHALATION TID PRN (Reason: Shortness Of Breath) RF: 0 prochlorperazine maleate 10 mg tablet 10 mg PO Q4H PRN (Reason: Nausea) RF: 0 oxycodone 5 mg tablet 5 - 10 mg PO Q4H PRN (Reason: Pain) RF: 0 amiodarone 200 mg tablet 200 mg PO DAILY@0600 RF: 0 Discharge Orders: Discharge ED (Routine); Ordered 09/07/20 Ordered By: Jg Villalobos Referrals: Jayna Schmitt MD [Primary Care Provider] - 1-3 days Discharge Diet: Usual diet Discharge Activity: Increase activity as tolerated Patient Instructions: Concussion (ED), Dizziness (ED) Activity Restrictions/Additional Instructions: Your headache and dizziness may be an effect of the head injury you sustained a few days ago. There is no significant injury to the brain on imaging, but mild injury to the brain can cause these types of symptoms. They should resolve over a short period of time. Follow-up with your doctor this coming week. Return to the emergency room for worsening symptoms including headache, vomiting, worsening dizziness, shortness of breath, other concerning symptoms. Use the prescribed medication for nausea as needed. 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 Surgical History S/P bronchoscopy Family History Other CAD (coronary artery disease) Cancer Dementia Hypertension Lung disease Stroke Denies family history of Diabetes Hyperlipidemia Chronic kidney disease (CKD) Family history of premature coronary artery disease Social History Smoking and tobacco status: current every day smoker cigarettes Years cigarettes smoked: 44 [ Other cigarette details: Hx of 1 PPD x 45 Years ] Quit status (tobacco): considering quitting Smoking risk assessment/counseling performed?: Yes Tobacco counseling given: counseling >3 minutes Alcohol intake: current Alcohol intake frequency: few times a month Alcohol type: beer Counseling given: No Counseling given: No Lives independently: Yes Household members: family Marital status: Current occupational status: retired History of recent travel: No Current gender identity: Female Course ED course: 65-year-old female with several complaints, originally seen by ARIADNE Bearden. I agree with her history, evaluation, and work-up. This patient complained of dizziness and headache. Head CT is negative. She did have a trauma couple of days ago. Her laboratory is essentially benign. Her EKG shows a sinus rhythm with a rate of 85, normal axis, and no acute ST changes. Intervals are normal. Her troponin fell a bit at 2 hours. On chest x-ray, it appeared she had worsening since her prior chest x-ray of her right upper lobe mass. On CT scan, it appears that she has a slight decrease in the mass size actually. There is some pneumonitis surrounding, likely related to radiation. CTA of the head and neck revealed no stenosis or dissection. She has walked in the emergency department, and has been up and down to the bedside commode [facility]. She will be allowed discharge. Vital Signs: Vital signs: Vital Signs Temperature 97.7 F 09/07/20 01:45 Pulse Rate 77 09/07/20 05:24 Respiratory Rate 16 09/07/20 05:24 Blood Pressure 152/95 09/07/20 05:24 Pulse Oximetry 99 09/07/20 05:24 MDM - Dizziness Lab Data: Labs: Lab Results 09/07/20 09/07/20 09/07/20 Range/Units 01:43 01:43 01:43 WBC 9.4 (4.0-10.0) 10^3/ uL RBC 4.99 (4.1-5.3) 10^6/u L Hgb 13.9 (11.5-15.3) g/dL Hct 43.1 (37.0-47.0) % MCV 86.4 (81-99) fL MCH 27.9 L (28.0-34.0) pg MCHC 32.3 (30.0-36.0) g/dL RDW 15.4 H (12.1-15.1) % Plt Count 349 (130-400) 10^3/c mm MPV 8.9 (7.4-10.4) fL Neut % (Auto) 82.6 % Lymph % (Auto) 7.3 % [place] % (Auto) 8.2 % Eos % (Auto) 1.1 % Baso % (Auto) 0.5 % Neut # (Auto) 7.80 H (1.8-7.7) 10^3/u L Lymph # (Auto) 0.7 L (0.8-4.8) 10^3/u L [place] # (Auto) 0.8 (0.2-0.9) 10^3/u L Eos # (Auto) 0.1 (0.0-0.8) 10^3/u L Baso # (Auto) 0.1 (0.0-0.1) 10^3/u L Nucleated RBC % (a uto) 0 % Nucleated RBCs # 0.0 /100WBC Sodium 133 L (136-145) mmol/L Potassium 4.2 (3.5-5.1) mmol/L Chloride 94 L (98-107) mmol/L Carbon Dioxide 27 (22-29) mmol/L Anion Gap 16.2 (5-19) BUN 17 (8-23) mg/dL Creatinine 0.5 (0.5-0.9) mg/dL GFR Calculation 123.4 (90-130) mL/min Glucose 121 H (65-115) mg/dL Calculated Osmolal ity 279 L (285-295) mOsm/k g Calcium 9.6 (8.5-10.5) mg/dL Total Bilirubin 0.5 (0.15-1.2) mg/dL AST 23 (0-32) U/L ALT 33 (0-33) U/L Alkaline Phosphata se 152 H (35-105) IU/L Troponin T Baselin e 17 H (0-10) ng/L Troponin T 120 Min [place] (0-10) ng/L Delta Troponin T (0-10) ABS# Total Protein 6.8 (6.6-8.7) g/dL Albumin 4.7 (3.5-5.2) g/dL Globulin 2.1 (1.3-4.6) g/dL Lipase 24 (13-60) U/L Urine Color (Yellow) Urine Appearance (CLEAR) Urine pH (5-7) Ur Specific Gravit y (1.005-1.030) Urine Protein (Negative) Urine Glucose (UA) (Normal) Urine Ketones (Negative) Urine Blood (Negative) Urine Nitrate (Negative) Urine Bilirubin (Negative) Urine Urobilinogen (Negative) mg/dL Ur Leukocyte Stephanie ase (Negative) Urine RBC (0-2) /hpf Urine WBC (0-5) /hpf Ur Squamous Epith Cells (0-5) /hpf Amorphous Sediment /hpf Urine Bacteria (NONE) /hpf 09/07/20 09/07/20 Range/Units 03:11 04:15 WBC (4.0-10.0) 10^3/ uL RBC (4.1-5.3) 10^6/u L Hgb (11.5-15.3) g/dL Hct (37.0-47.0) % MCV (81-99) fL MCH (28.0-34.0) pg MCHC (30.0-36.0) g/dL RDW (12.1-15.1) % Plt Count (130-400) 10^3/c mm MPV (7.4-10.4) fL Neut % (Auto) % Lymph % (Auto) % [place] % (Auto) % Eos % (Auto) % Baso % (Auto) % Neut # (Auto) (1.8-7.7) 10^3/u L Lymph # (Auto) (0.8-4.8) 10^3/u L [place] # (Auto) (0.2-0.9) 10^3/u L Eos # (Auto) (0.0-0.8) 10^3/u L Baso # (Auto) (0.0-0.1) 10^3/u L Nucleated RBC % (a uto) % Nucleated RBCs # /100WBC Sodium (136-145) mmol/L Potassium (3.5-5.1) mmol/L Chloride (98-107) mmol/L Carbon Dioxide (22-29) mmol/L Anion Gap (5-19) BUN (8-23) mg/dL Creatinine (0.5-0.9) mg/dL GFR Calculation (90-130) mL/min Glucose (65-115) mg/dL Calculated Osmolal ity (285-295) mOsm/k g Calcium (8.5-10.5) mg/dL Total Bilirubin (0.15-1.2) mg/dL AST (0-32) U/L ALT (0-33) U/L Alkaline Phosphata se (35-105) IU/L Troponin T Baselin e (0-10) ng/L Troponin T 120 Min [place] 13.26 H (0-10) ng/L Delta Troponin T -3.74 L (0-10) ABS# Total Protein (6.6-8.7) g/dL Albumin (3.5-5.2) g/dL Globulin (1.3-4.6) g/dL Lipase (13-60) U/L Urine Color Yellow (Yellow) Urine Appearance Sl cloudy A (CLEAR) Urine pH 7 (5-7) Ur Specific Gravit y 1.015 (1.005-1.030) Urine Protein Neg (Negative) Urine Glucose (UA) Norm (Normal) Urine Ketones Negative (Negative) Urine Blood Neg (Negative) Urine Nitrate Negative (Negative) Urine Bilirubin Neg (Negative) Urine Urobilinogen Norm (Negative) mg/dL Ur Leukocyte Stephanie ase Negative (Negative) Urine RBC None (0-2) /hpf Urine WBC None (0-5) /hpf Ur Squamous Epith Cells 0-4 H (0-5) /hpf Amorphous Sediment 2+ /hpf Urine Bacteria Trace (NONE) /hpf Discharge Plan Discharge Patient Disposition: Home Clinical Impression: Headache due to injury of head and neck Concussion Qualifiers: Encounter type: initial encounter Loss of consciousness presence/duration: without LOC Qualified Code(s): S06.0X0A - Concussion without loss of consciousness, initial encounter Condition: Stable Prescriptions: New Zofran 4 mg tablet 4 mg PO Q6H PRN (Reason: nausea and vomiting) Qty: 10 RF: 0 No Action Anoro Ellipta 62.5-25 mcg/actuation blister with device 1 inh inhalation DAILY 30 Days Qty: 60 RF: 4 clonazepam 0.5 mg tablet 0.5 mg PO TID PRN (Reason: Anxiety) Qty: 90 RF: 2 Zoloft 100 mg tablet 150 mg PO DAILY@0600 Qty: 45 RF: 2 lorazepam 1 mg tablet 0.5 - 1 mg PO TID PRN (Reason: Nausea) RF: 0 albuterol sulfate [ProAir HFA] 90 mcg/actuation HFA aerosol inhaler 2 puff INHALATION QID PRN (Reason: Shortness Of Breath) RF: 0 ipratropium-albuterol 0.5 mg-3 mg(2.5 mg base)/3 mL solution for nebulization 3 ml INHALATION TID PRN (Reason: Shortness Of Breath) RF: 0 prochlorperazine maleate 10 mg tablet 10 mg PO Q4H PRN (Reason: Nausea) RF: 0 oxycodone 5 mg tablet 5 - 10 mg PO Q4H PRN (Reason: Pain) RF: 0 amiodarone 200 mg tablet 200 mg PO DAILY@0600 RF: 0 Discharge Orders: Discharge ED (Routine); Ordered 09/07/20 Ordered By: Jg Villalobos Referrals: Jayna Schmitt MD [Primary Care Provider] - 1-3 days Discharge Diet: Usual diet Discharge Activity: Increase activity as tolerated Patient Instructions: Concussion (ED), Dizziness (ED) Activity Restrictions/Additional Instructions: Your headache and dizziness may be an effect of the head injury you sustained a few days ago. There is no significant injury to the brain on imaging, but mild injury to the brain can cause these types of symptoms. They should resolve over a short period of time. Follow-up with your doctor this coming week. Return to the emergency room for worsening symptoms including headache, vomiting, worsening dizziness, shortness of breath, other concerning symptoms. Use the prescribed medication for nausea as needed. Coding Level of Care Code ED Apparel Merchandiser for Barbara Fwd 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
[2020-09-07 02:02] VITALS: BP 165/99; BP 167/94; BP 181/112; PULSE 88; PULSE 90; PULSE 93
[2020-09-07 02:05] VITALS: BP 165/99; PULSE 90; RESP 22; O2SAT 98
[2020-09-07 02:05] LABS: Troponin(5th) Baseline 17 ng/L (0-10)
[2020-09-07 02:07] LABS: Alanine Aminotransferase 33 U/L (0-33); Albumin Level 4.7 g/dL (3.5-5.2); Alkaline Phosphatase 152 IU/L (35-105); Anion Gap 16.2 (5-19); Aspartate Amino Transferase 23 U/L (0-32); Blood Urea Nitrogen 17 mg/dL (8-23); Calcium 9.6 mg/dL (8.5-10.5); Carbon Dioxide 27 mmol/L (22-29); Chloride 94 mmol/L (98-107); Globulin 2.1 g/dL (1.3-4.6); Glomerular Filtration Rate 123.4 mL/min (90-130); Glucose 121 mg/dL (65-115); Lipase 24 U/L (13-60); Osmolality Calculated 279 mOsm/kg (285-295); Potassium 4.2 mmol/L (3.5-5.1); Sodium 133 mmol/L (136-145); Total Bilirubin 0.5 mg/dL (0.15-1.2); Total Protein 6.8 g/dL (6.6-8.7)
[2020-09-07] MEDS: labetalol 5 mg/mL SDV 20mL 20 MG IVP (03:37)
[2020-09-07] MEDS: ondansetron 2 mg/ML SDV 2 mL 4 MG IVP (03:38)
[2020-09-07 03:47] VITALS: RESP 16; O2SAT 95
[2020-09-07] MEDS: oxyCODONE 5 mg IR Tab/Cap PO (03:47)
[2020-09-07 03:48] VITALS: BP 167/105; PULSE 76; RESP 16; O2SAT 95
--- NOTE | 2020-09-07 04:06 | CTR_ITS ---
PROCEDURE INFORMATION: Exam: CT Angiography Head With Contrast, Arteriography Exam date and time: 09/07/2020 4:15 AM Age: 65 years old Clinical indication: Dizziness and giddiness and headache; Additional info: Dizziness, headache, vomtiing TECHNIQUE: Imaging protocol: Computed tomography angiography of the head with contrast. Exam focused on the arteries. 3D rendering (Not supervised by radiologist): MIP and/or 3D reconstructed images were created by the technologist. Radiation optimization: All CT scans at this facility use at least one of these dose optimization techniques: automated exposure control; mA and/or kV adjustment per patient size (includes targeted exams where dose is matched to clinical indication); or iterative reconstruction. Contrast material: VISI; Contrast volume: 95 ml; Contrast route: INTRAVENOUS (IV); COMPARISON: CT head wo con* [id number] 09/07/2020 2:19 AM RADIATION DOSE METRICS: Total DLP (mGy-cm): 2160.52 FINDINGS: ANTERIOR CIRCULATION: Right internal carotid artery: Unremarkable. Intracranial segment is patent with no significant stenosis. No aneurysm. Right middle cerebral artery: Unremarkable. No occlusion or significant stenosis. No aneurysm. Right anterior cerebral artery: Unremarkable. No occlusion or significant stenosis. No aneurysm. Left internal carotid artery: Unremarkable. Intracranial segment is patent with no significant stenosis. No aneurysm. Left middle cerebral artery: Unremarkable. No occlusion or significant stenosis. No aneurysm. Left anterior cerebral artery: Unremarkable. No occlusion or significant stenosis. No aneurysm. POSTERIOR CIRCULATION: Right vertebral artery: Unremarkable. No occlusion or significant stenosis. No aneurysm. Left vertebral artery: Unremarkable. No occlusion or significant stenosis. No aneurysm. Basilar artery: Unremarkable. No occlusion or significant stenosis. No aneurysm. Right posterior cerebral artery: Unremarkable. No occlusion or significant stenosis. No aneurysm. Left posterior cerebral artery: Unremarkable. No occlusion or significant stenosis. No aneurysm. Brain: No definite mass, mass effect, or midline shift. Cerebral ventricles: No ventriculomegaly. Bones/joints: Unremarkable. No acute fracture. Soft tissues: Unremarkable. IMPRESSION: No large vessel stenosis or occlusion. PROCEDURE INFORMATION: Exam: CT Angiography Neck With Contrast Exam date and time: 09/07/2020 4:15 AM Age: 65 years old Clinical indication: Dizziness and giddiness and headache; Additional info: Dizziness, headache, vomtiing TECHNIQUE: Imaging protocol: Computed tomography angiography of the neck with contrast. 3D rendering (Not supervised by radiologist): MIP and/or 3D reconstructed images were created by the technologist. Radiation optimization: All CT scans at this facility use at least one of these dose optimization techniques: automated exposure control; mA and/or kV adjustment per patient size (includes targeted exams where dose is matched to clinical indication); or iterative reconstruction. Contrast material: VISI; Contrast volume: 95 ml; Contrast route: INTRAVENOUS (IV); COMPARISON: CT head wo con* [id number] 09/07/2020 2:19 AM RADIATION DOSE METRICS: Total DLP (mGy-cm): 2160.52 FINDINGS: Right common carotid artery: No stenosis. No dissection or occlusion. Right internal carotid artery: No stenosis of the extracranial segment. No dissection or occlusion. Right external carotid artery: No occlusion or stenosis of the origin. Left common carotid artery: No stenosis. No dissection or occlusion. Left internal carotid artery: No stenosis of the extracranial segment. No dissection or occlusion. Left external carotid artery: No occlusion or stenosis of the origin. Right vertebral artery: No stenosis. No dissection or occlusion. Left vertebral artery: No stenosis. No dissection or occlusion. Soft tissues: Normal. No significant soft tissue swelling. Bones/joints: Degenerative changes of the spine seen. Lungs: A large right suprahilar mass is re-identified, resulting in narrowing of the airway, in association with paraseptal thickening and ground-glass airspace opacities throughout the right lung, which may represent postobstructive pneumonitis or lepidic spread of disease. There is a small right pleural effusion. Centrilobular emphysema is present. CT/CT angio headneck* [id number] IMPRESSION: 1. No stenosis or occlusion. 2. Right suprahilar mass with postobstructive pneumonitis/lepidic spread of disease and small right pleural effusion. REFERENCES: NASCET CRITERIA. The degree of internal carotid artery stenosis is based on NASCET criteria. Normal is no stenosis. Mild is less than 50% stenosis. Moderate is 50-69% stenosis. Severe is 70% to 99% stenosis. Total occlusion is no detectable patent lumen. Radiation Dose CTDIVOL = (mGy): DLP = 2160.52~2160.52 (mGy-cm)
--- NOTE | 2020-09-07 04:06 | CTR_ITS ---
PROCEDURE INFORMATION: Exam: CTA Chest With Contrast Exam date and time: 09/07/2020 4:15 AM Age: 65 years old Clinical indication: Dyspnea; Additional info: Chest pain TECHNIQUE: Imaging protocol: Computed tomographic angiography of the chest with contrast. 3D rendering (Not supervised by radiologist): MIP and/or 3D reconstructed images were created by the technologist. Radiation optimization: All CT scans at this facility use at least one of these dose optimization techniques: automated exposure control; mA and/or kV adjustment per patient size (includes targeted exams where dose is matched to clinical indication); or iterative reconstruction. Contrast material: VISI; Contrast volume: 95 ml; Contrast route: INTRAVENOUS (IV); COMPARISON: CT angio chest w abd pel w con 04/17/2020 9:28 PM RADIATION DOSE METRICS: Total DLP (mGy-cm): 2160.52 FINDINGS: Pulmonary arteries: Enlarged central pulmonary arteries, suggestive of pulmonary hypertension. No pulmonary embolus. Aorta: Mild diffuse atherosclerotic disease is present. Lungs: Mild decrease in size of right suprahilar mass, measuring approximately 4.4 x 3.5 cm (previously 4.9 x 4.1 cm). Narrowing of the airway in the right upper lobe is similar/slightly improved. Narrowing of the airway in the right middle and lower lobes proximally is unchanged. In the right lung, there is mild diffuse peribronchial thickening, increased septal thickening and patchy/articular airspace opacities along the anteromedial aspect of the bilateral upper lobes, anteromedial right middle lobe and superomedial aspect of the right lower lobe. Loss of volume in the right lung with elevation of the right hemidiaphragm and mild shifting of the mediastinal structures towards the right is is again seen. Centrilobular emphysema is present. Pleural spaces: Interval increase in size of small right pleural effusion. Heart: Mildly enlarged heart. Coronary atherosclerotic calcifications seen. No pericardial effusion. Lymph nodes: Unremarkable. No enlarged lymph nodes. Gallbladder and bile ducts: The gallbladder has been surgically removed. There is mild intra and extrahepatic biliary ductal dilatation, likely secondary to post cholecystectomy status. Bones/joints: No aggressive sclerotic or lytic osseous lesion identified. No acute fracture. Soft tissues: Unremarkable. CT/CT angio chest PE protcl [id number] IMPRESSION: 1. Mild decrease in size of right suprahilar mass, with mildly improved narrowing of the airway in the right upper lobe, and unchanged narrowing of the airway in the right middle and lower lobes. 2. New bilateral patchy and reticular airspace opacities, located medially in both lungs, right greater than left, suggestive of post radiation changes. Clinical correlation is recommended. Postobstructive pneumonitis and lepidic spread of disease should also be considered. 3. Interval increase in size of small right pleural effusion. 4. No pulmonary embolus. 5. Enlarged central pulmonary arteries, suggestive of pulmonary hypertension. 6. Centrilobular emphysema. Radiation Dose CTDIVOL = (mGy): DLP = 2160.52 (mGy-cm)
[2020-09-07 04:15] LABS: Urine Color Yellow (Yellow)
[2020-09-07 04:16] LABS: Add Urine Microscopic? YES; Bilirubin Urine Neg (Negative); Blood Urine Neg (Negative); Glucose Urine UA Norm (Normal); Ketones Urine Negative (Negative); Leukocyte Esterase Urine Negative (Negative); Nitrate Urine Negative (Negative); Protein Urine Neg (Negative); Specific Gravity, Urine 1.015 (1.005-1.030); Urobilinogen Urine Norm (Negative); pH Urine 7 (5-7)
[2020-09-07 04:17] LABS: Add Urine Culture? No; Amorphous Sediment Urine 2+ /hpf; Bacteria Urine TRACE /hpf; Squamous Epithelial Cell Urine 0-4 /hpf (0-5)
[2020-09-07 04:45] LABS: Troponin 5 2HR 13.26 ng/L (0-10)
[2020-09-07 04:46] LABS: Troponin 5 2HR Delta -3.74 ABS# (0-10)
[2020-09-07] MEDS: iodixanol 320 mg/mL 100mL Btl IV ×2 (04:50→04:55)
[2020-09-07 05:24] VITALS: BP 152/95; PULSE 77; RESP 16; O2SAT 99
== END 2020-09-07 06:55 | disposition home or self-care (01) ==
PROVIDERS: Registered Nurse; Emergency Provider Emergency Medicine; PCP Internal Medicine
DX: S06.0X0A Concussion without loss of consciousness, initial encounter (principal); Z85.118 Personal history of other malignant neoplasm of bronchus and lung; F17.210 Nicotine dependence, cigarettes, uncomplicated; X58.XXXA Exposure to other specified factors, initial encounter
CPT/HCPCS: 70450; 70496; 70498; 71045; 71275; 72125; 80053; 81001; 83690; 84484; 85025; 93005; 96374; 96375; 99284; J2405; J3490; Q9967

== ENCOUNTER 2020-09-16 06:19 | Outpatient (CLI) | payer MEDICARE, MEDICAID, SELFPAY ==
--- NOTE | 2020-09-19 09:08 | ONC FU_ITS ---
Dr. Almeida Patient Follow-Up Note Patient: Iram Denis Unit #: [id number]: [id number] Dicatated By: Jeff Almeida M.D.Date of Visit:Sep 16, 2020 Onc Med Follow-up/Prog Note Chief Complaint: Lung cancer. History of Present Illness: This is a 65-year-old woman with adenocarcinoma involving the upper lobe of the right lung, by clinical evaluation stage IIIB (T4, N2, M0). She had presented with hemoptysis in association with worsening shortness of breath and cough. Her chest x-ray on 01/30/2020 showed a 10 cm right hilar/suprahilar mass extending into the right upper lobe consistent with a primary lung malignancy. This was noted to probably invade the mediastinum. Chest CT on 02/04/2020 showed large right hilar and suprahilar mass measuring 11.9 x 6.1 x 7.1 cm. There was slight narrowing of the distal main pulmonary artery and there was narrowing of the adjacent segmental and subsegmental right upper lobe pulmonary branches. There was encasement of the right mainstem bronchus with associated narrowing. There was invasion into the mediastinum and adjacent mediastinal fat, and there was mild narrowing of the distal trachea. There was narrowing with encasement of the right superior vena cava which appeared partially thrombosed. There was evidence of tumor thrombus in the mid segment of the SVC measuring approximately 4.1 cm. There was conglomerate right hilar lymphadenopathy. Interstitial infiltrates throughout the right lung appeared suspicious for lymphangitic metastases. On 02/08/2020 she underwent bronchoscopy/EBUS with endobronchial biopsy from the right upper lobe and with FNA biopsy of station 4R lymph node. Pathology on the station 4R lymph node biopsy was consistent with metastatic adenocarcinoma, favoring lung primary. The tumor cells were TTF-1 positive. PET/CT on 02/09/2020 showed FDG avid right upper lobe mass measuring 12.1 x 5.6 cm. There was mild activity in a 1.5 cm subcarinal lymph node, consistent with metastatic disease. Postobstructive atelectasis with right upper and middle lobe interstitial thickening was suspicious for carcinomatosis. I had seen her initially on 02/20/2020. As her disease appeared to be localized by clinical evaluation, she was recommended to undergo radiation concurrently with weekly carboplatin/paclitaxel chemotherapy. As she had symptoms of impending superior vena cava obstruction and she had poor peripheral venous access, she received several fractions of radiation prior to her week 1 chemotherapy infusion which was administered on 03/12/2020. With that treatment she was able to complete the full dose of paclitaxel, but the carboplatin was interrupted due to development of acute shortness of breath and pulmonary congestion. An infusion reaction was suspected, but given her underlying lung disease and locally advanced malignancy, I was not certain of that. In any case, with additional steroid and pulmonary nebulizers her symptoms improved, and she was able to continue her radiation. On 03/19/2020 she she continued with her week 2 chemotherapy, limited to paclitaxel alone. She tolerated it well. At that point she was showing significant clinical improvement, and she also appeared to be showing significant response by follow-up CT imaging. With her week 3 chemotherapy on 03/27/2020, she restarted paclitaxel in combination with carboplatin, and she tolerated it well. She continued with week 4 treatment on 04/07/2020. On 04/18/2020 she was admitted to the hospital after presenting to the emergency room with fever and shortness of breath. She was just mildly neutropenic. CT pulmonary angiogram showed no evidence of pulmonary embolism. She was noted to have a large right upper lobe mass extending along the mediastinal border with encasement of the pulmonary artery branches to the right middle lobe. The mass was noted to involve the lower superior vena cava and right superior pulmonary vein, but it was noted to be significantly smaller compared to the previous study with much less involvement of the superior vena cava and of the pulmonary vein. She continued anticoagulation with apixaban. Following discharge from the hospital she was able to continue with her radiation. She completed treatment on 04/29/2020 to a total dose of 6000 cGy administered in 30 fractions. With the improvement on her restaging CT scans, she was felt to be eligible to begin maintenance immunotherapy with durvalumab. However, at that point she was feeling terrible, and her further treatment was deferred. Her other medical illnesses include hypertension and COPD. She also has had atrial fibrillation. She has a remote history of cervical cancer. She also has history of migraine headaches, and she has anxiety/depression. She has a history of smoking 1 pack of cigarettes daily for 40 years, which she has cut down. INTERIM HISTORY: On 09/07/2020 she was seen in the emergency room with nausea/vomiting and dizziness. CT angiogram of the head/neck showed no evidence of carotid or vertebral artery stenosis. Her CT pulmonary angiogram showed a mild decrease in the right suprahilar mass measuring 4.4 x 3.5 cm compared to 4.9 x 4.1 cm on the prior study from April. There was narrowing of the airway to the right upper lobe and narrowing of the airways to the right middle lobe and lower lobes similar to the previous study. There was new bilateral patchy and reticular airspace opacities located immediately in both lungs, right greater than left, suggestive of postradiation changes. Other considerations included postobstructive pneumonitis and lepidic spread of disease. There was interval increase in the size of a small right pleural effusion. She is seen for a follow-up visit. She has very limited activity. She is up and around she has a little very little bit of housework. ECOG score is 2. Her appetite is still okay. She has not recently had any fever. She occasionally has night sweating. She is not having sore throat or difficulty swallowing. She has cough productive of clear sputum. She is short of breath, which limits her activity. She is on continuous oxygen. She does not complain of chest pain. She has occasional nausea/vomiting and she has had some ongoing problems with constipation. Bladder function remains adequate. She is having pain in her neck and back and she recently has had pain in her right shoulder and in her left leg. She does not complain of headache. She sometimes has dizziness. She has no numbness/paresthesia or other focal neurologic symptoms. Medications: Amiodarone HCl 1 Tablet (of 200 mg) Oral b.i.d., Ipratropium-Albuterol 3 mL (of 0.5-2.5 (3) mg/3mL) Solution Inhalation four times a day PRN, KlonoPIN 1 Tablet (of 0.5 mg) Oral daily, Lisinopril 1 Tablet (of 10 mg) Oral daily, oxyCODONE HCl 1 - 2 Tablet (of 5 mg) Tablet Oral q 4 hours, Saline Nasal Sayre 1 (0.65 %) Solution Nasal daily, Xarelto 1 Tablet (of 15 mg) Oral daily, Zoloft 1 Tablet (of 50 mg) Oral daily Allergies: No Known Allergies. Vital Signs: Performed on Sep 16, 2020 12:14 Height - 66.00 in Weight - 137.6 lbs (HIGH) BSA - 1.71 sq.m BMI - 22.21 Temperature - 97.1 F (LOW) Pulse - 88 /min Respiration - 18 /min BP - 156/95 mm(hg) (HIGH) O2 Sat - 97 % Pain - 7 Fatigue - 9 Physical Examination: Constitutional - She appears generally weak, Eyes - Sclerae nonicteric. Conjunctivae clear, ENMT - No lesions noted in the oral cavity, Hematologic/Lymphatic - No cervical, clavicular, or axillary adenopathy, Respiratory - Lungs sound clear with diminished air movement bilaterally, Cardiovascular - Heart rhythm is regular. There is no murmur, gallop, or rub noted, Abdomen - Soft. Liver and spleen are not enlarged. There is no abdominal mass or ascites noted and there is no inguinal adenopathy, Extremities - Mild edema with induration. Pedal pulses are palpable bilaterally. There is limited range of motion at the right shoulder joint, Neurologic - She does not appear to have any focal neurologic deficit. Lab/Imaging: Test performed on September 04, 2020 14:05 Sodium 135 mmol/L Potassium 4.3 mmol/L Chloride 98 mmol/L CO2 25 mmol/L Anion Gap 16.3 BUN 14 mg/dL Creatinine 0.6 mg/dL Cr Clearance (Est) 84.5400 mL/min eGFR 100.0 mL/min Glucose 91 mg/dL Osmolality - Calculated 280 mOsm/kg Calcium 9.2 mg/dL Protein, Total 7.1 g/dL Albumin 4.7 g/dL Globulin 2.4 g/dL Bilirubin, Total 0.4 mg/dL ALT (SGPT) 40 U/L AST (SGOT) 27 U/L Alkaline Phosphatase 144 IU/L WBC 9.9 10 3/uL RBC 5.18 10 6/uL HGB 14.3 g/dL HCT 45.1 % MCV 87.1 fL MCH 27.6 pg MCHC 31.7 g/dL RDW 15.8 % Platelet Count 384 10 3/cmm MPV 9.1 fL Neutrophils 8.21 10 3/uL Lymphocytes 0.7 10 3/uL Monocytes 0.7 10 3/uL Eosinophils 0.1 10 3/uL Basophils 0.1 10 3/uL Neutrophil % 82.9 % Lymphocyte % 7.1 % Monocyte % 7.5 % Eosinophil % 1.4 % Basophils % 0.7 % NRBC % 0 % Problem List: 1. Adenocarcinoma involving the upper lobe of the right lung, by clinical evaluation stage at least IIIB (T4, N2, M0). 2. She underwent bronchoscopy/EBUS with right upper lobe endobronchial biopsy and with FNA biopsy of station 4R lymph node on 02/08/2020. 3. Hypertension. 4. COPD. 5. Atrial fibrillation. 6. She has history of migraine headaches. 7. She has remote history of cervical cancer, treated with cone biopsy. 8. Anxiety/depression. 9. Nicotine dependence. Problems Addressed with this Encounter and Plan: 1. Patient with adenocarcinoma involving the upper lobe of the right lung, by clinical evaluation stage at least IIIB (T4, N2, M0). She has undergone ongoing radiation concurrently with weekly carboplatin/paclitaxel chemotherapy. Her chemotherapy was complicated by suspected infusion reaction with her initial dose of carboplatin. The carboplatin was held at week 2, but reinstituted with her weeks 3 and 4 treatments. She had significant clinical improvement during her chemoradiation. However, on 04/17/2019 she required admission to the hospital for shortness of breath/hypoxia and fever. Her repeat CT scans had shown significant improvement in the right upper lobe lung cancer compared to the March [address] CT. In particular, there was much less involvement of the superior vena cava and of the pulmonary vein. She initially improved on empiric antibiotic therapy. However, since then she then continued to have intermittent fever, and she had significant decline in her performance status. With improvement in her CT scan, she would have been eligible for maintenance durvalumab. However, with her ongoing symptoms and declining performance status, her further treatment was deferred. During follow-up she has continued to have marginal performance status. Her CT pulmonary angiogram on 09/07/2020 showed a slight further decrease in the right suprahilar mass. There was new infiltrate which appeared to be consistent with radiation changes and there was increase in right pleural effusion. My review of her CT scans, there is still very significant improvement in the lung mass compared to the pretreatment study in March. The appearance of the pulmonary parenchyma in the right lung, though, has worsened significantly, and there has been significant increase in the effusion. With those changes, I am going to contact Dr. Meadows to discuss recommendations for her further management. However, I will continue to defer further treatment for the lung cancer unless there is definite evidence that it is progressing. 2. 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 It had shown improvement by followup CT scan. She continues anticoagulation, currently with rivaroxaban. 3. Atrial fibrillation. It is currently being managed with amiodarone. Signed By: Jeff Almeida M.D. <<Signature on File>>
== END 2020-09-16 06:20 | disposition home or self-care (01) ==
LOC: ONCMED 06:23
PROVIDERS: PCP Internal Medicine; Visit Provider Internal Medicine Medical Oncology
DX: C34.12 Malignant neoplasm of upper lobe, left bronchus or lung (principal); I10 Essential (primary) hypertension; J44.9 Chronic obstructive pulmonary disease, unspecified; I48.91 Unspecified atrial fibrillation; Z79.01 Long term (current) use of anticoagulants; F41.9 Anxiety disorder, unspecified; F32.9 Major depressive disorder, single episode, unspecified; F17.200 Nicotine dependence, unspecified, uncomplicated; Z85.41 Personal history of malignant neoplasm of cervix uteri; Z92.21 Personal history of antineoplastic chemotherapy; Z92.3 Personal history of irradiation; I82.210 Acute embolism and thrombosis of superior vena cava
CPT/HCPCS: 99214

== ENCOUNTER 2020-10-29 09:20 | Outpatient (CLI) | payer MEDICARE, MEDICAID, SELFPAY ==
--- NOTE | 2020-10-29 09:31 | XR_ITS ---
WS: [id number] PA and lateral chest, 10/29/2020 Clinical Data: COPD/LUNG CANCER Comparison: Portable chest, 09/07/2020. Findings: The right suprahilar mass is diminished in size. There is stable scarring extending into th e right upper lobe and also the right lower lobe. The right diaphragm is elevated. There is shift of the heart and mediastinum from left to right. The left lung is normal. No pneumonia or pneumothorax i s seen. There are clips in the right upper quadrant from a cholecystectomy. XR/XR chest 2V* [id number] Impression: 1. Decrease in size of right suprahilar mass with improvement in right lung aer ation. 2. No change in shift of heart and mediastinum from left to right. 3. Continued elevation of the right diaphragm.
== END 2020-10-29 09:21 | disposition home or self-care (01) ==
LOC: RAD 09:24
PROVIDERS: PCP Internal Medicine; Visit Provider Internal Medicine
DX: C34.90 Malignant neoplasm of unspecified part of unspecified bronchus or lung (principal); J44.9 Chronic obstructive pulmonary disease, unspecified; R91.8 Other nonspecific abnormal finding of lung field
CPT/HCPCS: 71046

== ENCOUNTER 2020-11-05 14:58 | Outpatient (CLI) | payer MEDICARE, MEDICAID, SELFPAY ==
--- NOTE | 2020-11-05 15:15 | CT_ITS ---
WS: [id number] Exam: CT chest wo con [id number] Date/Time of Exam: 11/05/2020 3:15 PM Reason For Exam: Lung cancer DLP: 691.[address] scans at [facility] use at least one of these dose optimization techniques: automat ed exposure control; mA and/or kV adjustment per patient size (includes targeted exams where dose is matched to clinical indication); or iterative reconstruction. Comparison 09/07/2020. Right hilar mass shows little change in size since previous study. There is encasement and narrowing of the right upper lobe bronchus. Diffuse infiltrates are seen in the right upper lobe that may repre sent postobstructive pneumonia or neoplastic involvement. Right posterior pleural effusion shows some improvement. There is narrowing of the right mainstem bronchus secondary to mass effect. No obvious enlarged mediastinal lymph nodes. The thoracic aorta is normal in caliber. There is thickening of the right pericardium which may represent tumor involvement. Trace pericardial effusion Subsegmental ate lectatic change in the right middle lobe. The left lung is clear and fully expanded. No obvious destr uctive bone lesions are seen. Emphysematous changes and hyperinflation. Elevated right diaphragm may indicate phrenic nerve paralysis. This is unchanged. Coronary artery calcifications. Prominent calcif ied cyst of the left kidney. Small right renal cyst. CT/CT chest wo con [id number] IMPRESSION: 1. Right hilar mass shows little change in size since prior study. There is enc asement of the right upper lobe bronchus and distal right mainstem bronchus. Th ere are diffuse infiltrates in the right upper lobe that could represent postob structive pneumonia or lymphatic tumor spread. 2. Improved right-sided pleural effusion. 3. No obvious mediastinal lymphadenopathy. 4. Additional findings as above.
== END 2020-11-05 14:59 | disposition home or self-care (01) ==
PROVIDERS: PCP Internal Medicine; Visit Provider Internal Medicine Critical Care Medicine
DX: C34.90 Malignant neoplasm of unspecified part of unspecified bronchus or lung (principal)
CPT/HCPCS: 71250

== ENCOUNTER → 2020-11-12 12:49 | Outpatient (BNVA) | payer MEDICARE, MEDICAID, SELFPAY | PROVIDERS: PCP Internal Medicine; Visit Provider Internal Medicine Critical Care Medicine | DX: Z20.822 Contact with and (suspected) exposure to COVID-19 (principal); J44.1 Chronic obstructive pulmonary disease with (acute) exacerbation | CPT/HCPCS: 87635 ==

== ENCOUNTER → 2020-11-21 07:24 | Outpatient (BNVA) | payer MEDICARE, MEDICAID, SELFPAY | PROVIDERS: PCP Internal Medicine; Visit Provider Nurse Practitioner | DX: F41.0 Panic disorder [episodic paroxysmal anxiety] (principal) | CPT/HCPCS: 99214 ==

== ENCOUNTER → 2020-12-05 10:23 | Outpatient (BNVA) | payer MEDICARE, MEDICAID, SELFPAY | PROVIDERS: PCP Internal Medicine; Visit Provider Internal Medicine Critical Care Medicine | DX: Z01.812 Encounter for preprocedural laboratory examination (principal); Z20.822 Contact with and (suspected) exposure to COVID-19 | CPT/HCPCS: 87635 ==

== ENCOUNTER 2020-12-12 06:35 | Day surgery (SDC) | payer MEDICARE, MEDICAID, SELFPAY ==
[2020-11-14 13:25] VITALS: BMI 23.3
[2020-12-05 13:26] VITALS: BMI 23.3
[2020-12-12] VITALS (9 sets, daily range): BP systolic 134–173; BP diastolic 69–94; PULSE 74–85; RESP 15–20; TEMP 36.6–36.7; O2SAT 95–99
--- NOTE | 2020-12-12 | SCC_ITS ---
PROCEDURE DONE: Bronchoscopy with inspection of the airway, endobronchial biopsies, bronchoalveolar lavage and fluoroscopy guided transbronchial biopsies and control of bleeding. 36.12 seconds of fluoroscopic guidance, for a cumulative dose of 36.12 mGy, was provided to Dr. Meadows by the radiology department. C-arm images of the chest were saved for the patient's permanent record. MTDD
--- NOTE | 2020-12-12 | SC_ITS ---
WS: [id number] C-arm fluoroscopy for bronchoscopy, 12/12/2020 Clinical Data: BRONCH IMAGES Comparison: None. Findings: There is an image of a bronchoscope in the right lower lobe. SC/C-arm FL for Bronchoscopy Impression: Right lower lobe bronchoscopy.
[2020-12-12] MEDS: sodium chloride 0.9% 1,000 ML 30 ML IV (07:24)
--- NOTE | 2020-12-12 08:05 | ANES.PREANE2 ---
Pre-Anesthetic Assessment Pre-Anesthetic Assessment: Height/Weight: Height 1.65 m Weight 63.503 kg Temp Pulse Resp BP Pulse Ox 98.1 F 79 18 137/86 99 12/12/20 07:02 12/12/20 07:02 12/12/20 07:02 12/12/20 07:02 12/12/20 07:02 Preop Diagnosis: Lung cancer Proposed Procedure: Operation Date: 12/12/20 08:10 Proposed Procedures p Bronchoscopy(Not Applicable) - Kerri Meadows MD Familial anesthetic complications: None Last intake: Intake Last Liquid Date 12/11/20 Last Liquid Time 21:30 Last Solid Date 12/11/20 Last Solid Time 21:30 Social: Social History: Tobacco and No alcohol Exam: Pre-Anes Outpt Exam: alert, oriented x 3 and regular rate & rhythm Additional Exam Findings (including area of procedure): b/l wheezes, diminished Airway: Cervical ROM: WNL MP: 3 Dentition: False Pulmonary: Pulmonary: COPD Comments: Lung cancer s/p radiation CV/HEM: CV/HEM: Afib Neuropsych: Neuropsych: Anxiety Anesthetic Plan: ASA status: 4 Anesthesia: General Risk of > 500 ml blood loss (7ml/kg in children): No Meds/Allergies Current Medications: Current Medications Generic Name Dose Route Start Last Admin Trade Name Freq PRN Reason Stop Dose Admin Sodium Chloride 1,000 mls @ 30 ml s/hr 12/12/20 07:15 12/12/20 07:24 Sodium Chloride 0.9% IV 12/13/20 07:14 30 mls/hr .Q24H ANA MARÍA Administration PFSH Anesthesia PFSH: Medical History Hyponatremia Lung cancer Lung mass Osteoarthritis of left knee Panic disorder [episodic paroxysmal anxiety] Port-A-Cath in place 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 Surgical History S/P bronchoscopy Family History Other CAD (coronary artery disease) Cancer Dementia Hypertension Lung disease Stroke Denies family history of Diabetes Hyperlipidemia Chronic kidney disease (CKD) Family history of premature coronary artery disease Social History (Updated 11/04/20 @ 13:07 by Karen Antunez LPN) Smoking and tobacco status: current every day smoker cigarettes Years cigarettes smoked: 44 [ Other cigarette details: Hx of 1 PPD x 45 Years ] Quit status (tobacco): considering quitting Smoking risk assessment/counseling performed?: Yes Tobacco counseling given: counseling >3 minutes Alcohol intake: current Alcohol intake frequency: few times a month Alcohol type: beer Counseling given: No Counseling given: No Lives independently: Yes Household members: family Marital status: Current occupational status: retired History of recent travel: No Current gender identity: Female Data Anesthesia Cardiac Studies: Holter Monitor 06/24/20
--- NOTE | 2020-12-12 08:05 | W.PM.OPSFHP ---
Same Day Surgery H&P Indication for Procedure/HPI DATE OF PROCEDURE: December 12, 2020 CHIEF COMPLAINT/INDICATIONFOR SURGICAL PROCEDURE: This is a 65-year-old lady with history of lung cancer coming in for bronchoscopic evaluation with persistent right lung infiltrate. PREOP DIAGNOSIS: Lung cancer PLANNED PROCEDRUE: Bronchoscopy inspection of the airway, bronchoalveolar lavage, fluoroscopy guided transbronchial biopsy and control of bleeding. Operation Date: 12/12/20 08:10 Proposed Procedures p Bronchoscopy(Not Applicable) - Kerri Meadows MD Medications/Allergies* Home Medications Medication Instructions Recorded Confirmed Type albuterol sulfate [ProAir HFA] 2 puff INHALATION QID PRN 02/07/20 11/20/20 History ipratropium-albuterol 3 ml INHALATION TID PRN 03/22/20 12/05/20 History oxycodone 5 - 10 mg PO Q4H PRN 03/22/20 12/05/20 History amiodarone 200 mg PO BID 06/07/20 11/20/20 History doxycycline hyclate 100 mg PO BID 11/17/20 12/05/20 History lisinopril 10 mg PO DAILY 11/17/20 12/05/20 History rivaroxaban [Xarelto] 15 mg PO DAILY 12/08/20 12/08/20 History Allergies/Adverse Reactions Allergy/AdvReac Type Severity Reaction Status Date / Time morphine AdvReac Severe ADR-Vomitin Verified 11/04/20 13:05 g Current Medications: Generic Name Dose Route Start Last Admin Trade Name Freq PRN Reason Stop Dose Admin Sodium Chloride 1,000 mls @ 30 mls/hr 12/12/20 07:15 12/12/20 07:24 Sodium Chloride 0.9% IV 12/13/20 07:14 30 mls/hr .Q24H ANA MARÍA Administration Pertinent History/Comorbid Conditions* Medical History (Updated 11/04/20 @ 13:13 by Kerri Meadows MD) Hyponatremia Lung cancer Lung mass Osteoarthritis of left knee Panic disorder [episodic paroxysmal anxiety] Port-A-Cath in place 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 Surgical History (Updated 03/21/20 @ 04:52 by Akosua Portillo MD) S/P bronchoscopy Family History (Updated 04/16/20 @ 10:21 by Merary Enriquez RN) CAD (coronary artery disease) Dementia Lung disease Cancer Hypertension Stroke Denies family history of Diabetes Hyperlipidemia Chronic kidney disease (CKD) Family history of premature coronary artery disease Social History Smoking and tobacco status: current every day smoker cigarettes Years cigarettes smoked: 44 [ Other cigarette details: Hx of 1 PPD x 45 Years ] Quit status (tobacco): considering quitting Smoking risk assessment/counseling performed?: Yes Tobacco counseling given: counseling >3 minutes Alcohol intake: current Alcohol intake frequency: few times a month Alcohol type: beer Counseling given: No Counseling given: No Lives independently: Yes Household members: family Marital status: Current occupational status: retired History of recent travel: No Current gender identity: Female Pertinent Exam Findings alert and oriented x 3 Reduced breath sound in right lung compared to the left, no wheezing or rhonchi Recommendations Surgery/Procedure today Coding Level of Care Code Acute 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
[2020-12-12] MEDS: lidocaine 1% INJ 20 mL XX (08:57)
--- NOTE | 2020-12-12 09:18 | XR_ITS ---
WS: [id number] Portable AP upright chest, 12/12/2020 Clinical Data: POST BRONCH Comparison: PA and lateral chest, 10/29/2020. Findings: There is almost complete opacification of the right thorax. This probably represents atelec tasis and/or effusion. The left lung is clear. There is a shift of the heart and mediastinum from lef t to right. There are monitor leads on the chest and abdominal salgado. XR/XR chest 1V portable [id number] Impression: 1. Opacification of the right thorax representing worsening atelectasis and/or effusion. 2. Shift of heart and mediastinum from left to right.
--- NOTE | 2020-12-12 09:35 | P.OP_ITS ---
Operative Report Date of procedure: December 12, 2020 Pre-op Diagnosis: Lung cancer Post-op diagnosis: same Brief History: This is a 65-year-old lady with stage IIIb adenocarcinoma of the lung who has completed her chemoradiation therapy. Recent radiologic imaging has shown lung infiltrate with concerns for lymphangitic spread. The patient is here to undergo bronchoscopy for tissue diagnosis. Procedure: Name of the procedure: Bronchoscopy with inspection of the airway, endobronchial biopsies, bronchoalveolar lavage and fluoroscopy guided transbronchial biopsies and control of bleeding. Indication: Suspected lymphangitic spread of adenocarcinoma of the lung Anesthesia: General anesthesia Local anesthesia: 1% lidocaine in the talisha and right and left mainstem bronchus. 3 ml Description of the procedure: The procedure was explained to the patient and consent was obtained. The patient was taken to the OR and underwent endotracheal intubation for general anesthesia. The bronchoscope was introduced through the endotracheal tube. The lower trachea appeared erythematous. The talisha was sharp. The patch of whitish mucosa was noted on the right side of the talisha. Endobr onchial biopsies were obtained from the lesion. The bilateral airways were then examined in a systematic manner. The bronchoscope was introduced into the left mainstem bronchus. Left upper lobe, lingula and lower lobe bronchi were examined up to the third subsegmental level and no abnormalities were identified. There was no endobronchial lesion or mucous plug. The bronchoscope was then introduced into the right mainstem bronchus. The right upper lobe bronchus was completely occluded. There was narrowing of the bronchus intermedius. The opening of the right middle lobe bronchus was also narrow but I was able to pass the bronchoscope to examine the medial and lateral segments upper third subsegmental level. No endobronchial lesions were identified. The bronchoscope was then introduced into the right lower lobe bronchus however all the segmental bronchi where occluded due to external compression. Bronchoalveolar lavage was performed from the lateral segment of the right middl e lobe. 60 cc of fluid was administered, fluid return was 10 mL. Transbronchial biopsies were then obtained from the right middle lobe under fluoroscopic guidance. 7 samples were obtained. Complications: There is no immediate complications. Chest x-ray: Chest x-ray postprocedure revealed atelectasis of the right lung
--- NOTE | 2020-12-12 16:00 | ANE.PACU2 ---
Inpatient post-anesthesia follow up: Airway intact: Yes Vital signs: Temperature 98 F Pulse Rate 75 Respiratory Rate 20 Blood Pressure 134/76 Pulse Oximetry 97 Oxygen Delivery Me thod Nasal Cannula Oxygen Flow Rate 4 Fraction of Inspir ed Oxygen Hydration adequate: Yes Nausea and vomiting: No Pain level: 2 Mental status: Baseline
== END 2020-12-12 11:10 | disposition home or self-care (01) ==
PROVIDERS: PCP Internal Medicine; Visit Provider Internal Medicine Critical Care Medicine
PROC: 0BJ08ZZ Inspection of Tracheobronchial Tree, Via Natural or Artificial Opening Endoscopic (ICD-10-PCS; CPT 31622; principal; 2020-12-12 08:00)
DX: C34.90 Malignant neoplasm of unspecified part of unspecified bronchus or lung (principal); J44.9 Chronic obstructive pulmonary disease, unspecified; I48.91 Unspecified atrial fibrillation; F41.9 Anxiety disorder, unspecified; M17.12 Unilateral primary osteoarthritis, left knee; F17.210 Nicotine dependence, cigarettes, uncomplicated; Z82.49 Family history of ischemic heart disease and other diseases of the circulatory system; Z82.3 Family history of stroke
CPT/HCPCS: 31625; 71045; 76000; 87070; 87102; 87205; 87206; 88305; 88309; 94669; J0330; J2370; J2704; J3490; J7030

== ENCOUNTER 2020-12-19 10:50 | Outpatient (CLI) | payer MEDICARE, MEDICAID, SELFPAY ==
--- NOTE | 2020-12-19 10:58 | XR_ITS ---
WS: [id number] PA and lateral chest, 12/19/2020 Clinical Data: Lung atelectasis Comparison: Portable chest, 12/12/2020. Findings: There is increased aeration in the right upper lobe. There is still a large right effusion. There is a right hilar mass with post obstruction atelectasis. The left lung is clear. The heart and mediastinum are shifted from left to right. There are clips in the right upper quadrant from a bladimir cystectomy. XR/XR chest 2V* [id number] Impression: 1. Increased aeration in right upper lobe. 2. Large right pleural effusion persists. 3. Right hilar mass with post obstruction atelectasis is seen. 4. Shift of heart and mediastinum from left to right.
== END 2020-12-19 10:51 | disposition home or self-care (01) ==
PROVIDERS: PCP Internal Medicine; Visit Provider Internal Medicine Critical Care Medicine
DX: J98.11 Atelectasis (principal); J90 Pleural effusion, not elsewhere classified; R91.8 Other nonspecific abnormal finding of lung field; R93.89 Abnormal findings on diagnostic imaging of other specified body structures
CPT/HCPCS: 71046

== ENCOUNTER → 2020-12-23 10:46 | Day surgery (SDC) | payer MEDICARE, MEDICAID, SELFPAY ==
[2020-12-23 10:55] VITALS: BP 160/89; PULSE 81; RESP 18; TEMP 36.8; O2SAT 99
[2020-12-23 11:11] VITALS: BMI 24.0
[2020-12-23 11:50] VITALS: BP 85/47; PULSE 74; RESP 18; O2SAT 99
[2020-12-23 11:58] VITALS: BP 124/70
--- NOTE | 2020-12-23 12:01 | PM.ACPR ---
Procedure/Consent Time out: Time Out Performed: Yes Consent: Consent for Procedure: Consent obtained from patient Procedure Narrative: Name of the procedure: Right thoracentesis under ultrasound guidance. Indication: Suspicion for malignant pleural effusion Anesthetics: Local anesthesia with 1% lidocaine. IV pain medication: None. Description of the procedure: The procedure was explained to the patient in detail including the risks and a consent was obtained. The right hemithorax was scanned with ultrasound to find a safe fluid pocket. Moderate free-flowing fluid was noted. There was no complexity. Following identification of the fluid pocket the site was marked. The site was cleaned using sterile technique. Lidocaine 1% was injected into the skin and the subcutaneous tissue. Subsequently, the periosteum in the parietal pleural was also anesthetized using lidocaine. The pleural space was entered in the posterior axillary line in the right seventh intercostal space. Straw-colored fluid was aspirated. About 1050 cc of fluid was aspirated. Sample: The pleural fluid was sent for cell count and differential, pH, protein, LDH, albumin, Gram stain and culture, fungal stain and culture, AFB stain and culture and cytology. Postprocedure chest x-ray was pending. Acute Procedures Epistaxis Control: Time out performed: Yes
--- NOTE | 2020-12-23 12:02 | XR_ITS ---
WS: [id number] XR chest 1V portable [id number] REASON FOR EXAM: post thoracentesis FINDINGS: Compared to the examination of 12/19/2020, there is been significant reduction in the right pleural ef fusion. Right hilar mass and diffuse infiltrative changes in the right upper lung field again noted. There is either significant elevation of the right hemidiaphragm versus subpulmonic effusion. There is no pneumothorax. XR/XR chest 1V portable [id number] IMPRESSION: Significant reduction in right pleural effusion as above.
[2020-12-23 12:51] LABS: Body Fluid WBC 1151 /uL; Monocytes # Body Fluid 1.061
[2020-12-23 13:10] LABS: Color, Body Fluid PALE YELLOW
[2020-12-23 13:11] LABS: Apprearance, Body Fluid TURBID
[2020-12-23 13:16] LABS: LDH Pleural Fluid 163 U/L; PATH Referral YES; Total Protein Pleural Fluid 4.1 g/dL
== END ==
PROVIDERS: PCP Internal Medicine; Visit Provider Internal Medicine Critical Care Medicine
DX: J90 Pleural effusion, not elsewhere classified (principal)
CPT/HCPCS: 32555; 71045; 80500; 82945; 83615; 83986; 84157; 87015; 87070; 87075; 87116; 87205; 87206; 87801; 88112; 88305; 89050

== ENCOUNTER 2021-01-01 08:46 | Outpatient (CLI) | payer MEDICARE, MEDICAID, SELFPAY ==
[2021-01-01 09:59] LABS: Basophils # 0.1 10^3/uL (0.0-0.1); Basophils % 0.7 %; Eosinophils # 0.1 10^3/uL (0.0-0.8); Eosinophils % 1.1 %; Hematocrit 43.1 % (37.0-47.0); Hemoglobin 13.3 g/dL (11.5-15.3); Lymphocytes # 0.7 10^3/uL (0.8-4.8); Lymphocytes % 8.4 %; Mean Corpuscular HGB Conc 30.9 g/dL (30.0-36.0); Mean Corpuscular Hemoglobin 26.5 pg (28.0-34.0); Mean Platelet Volume 8.8 fL (7.4-10.4); Monocytes # 0.8 10^3/uL (0.2-0.9); Monocytes % 9.6 %; Neutrophils # 6.45 10^3/uL (1.8-7.7); Neutrophils % 79.6 %; Nucleated Red Blood Cells % 0 %; Platelet Count 386 10^3/cmm (130-400); Red Blood Count 5.01 10^6/uL (4.1-5.3); Red Cell Distribution Width 16.8 % (12.1-15.1); White Blood Count 8.1 10^3/uL (4.0-10.0)
[2021-01-01 10:29] LABS: Alanine Aminotransferase 80 U/L (0-33); Albumin Level 3.7 g/dL (3.5-5.2); Alkaline Phosphatase 190 IU/L (35-105); Anion Gap 12.2 (5-19); Aspartate Amino Transferase 41 U/L (0-32); Blood Urea Nitrogen 18 mg/dL (8-23); Calcium 9.4 mg/dL (8.5-10.5); Carbon Dioxide 29 mmol/L (22-29); Chloride 99 mmol/L (98-107); Glomerular Filtration Rate 83.7 mL/min (90-130); Glucose 100 mg/dL (65-115); Osmolality Calculated 284 mOsm/kg (285-295); Potassium 4.2 mmol/L (3.5-5.1); Sodium 136 mmol/L (136-145); Total Bilirubin 0.3 mg/dL (0.15-1.2); Total Protein 6.7 g/dL (6.6-8.7)
--- NOTE | 2021-01-01 14:33 | ONC FU_ITS ---
Dr. Almeida Patient Follow-Up Note Patient: Iram Denis Unit #: [id number]: [id number] Dicatated By: Jeff Almeida M.D.Date of Visit:Jan 01, 2021 Onc Med Follow-up/Prog Note Chief Complaint: Lung cancer. History of Present Illness: This is a 65-year-old woman with adenocarcinoma involving the upper lobe of the right lung, by clinical evaluation stage IIIB (T4, N2, M0). She had presented with hemoptysis in association with worsening shortness of breath and cough. Her chest x-ray on 01/30/2020 showed a 10 cm right hilar/suprahilar mass extending into the right upper lobe consistent with a primary lung malignancy. This was noted to probably invade the mediastinum. Chest CT on 02/04/2020 showed large right hilar and suprahilar mass measuring 11.9 x 6.1 x 7.1 cm. There was slight narrowing of the distal main pulmonary artery and there was narrowing of the adjacent segmental and subsegmental right upper lobe pulmonary branches. There was encasement of the right mainstem bronchus with associated narrowing. There was invasion into the mediastinum and adjacent mediastinal fat, and there was mild narrowing of the distal trachea. There was narrowing with encasement of the right superior vena cava which appeared partially thrombosed. There was evidence of tumor thrombus in the mid segment of the SVC measuring approximately 4.1 cm. There was conglomerate right hilar lymphadenopathy. Interstitial infiltrates throughout the right lung appeared suspicious for lymphangitic metastases. On 02/08/2020 she underwent bronchoscopy/EBUS with endobronchial biopsy from the right upper lobe and with FNA biopsy of station 4R lymph node. Pathology on the station 4R lymph node biopsy was consistent with metastatic adenocarcinoma, favoring lung primary. The tumor cells were TTF-1 positive. PET/CT on 02/09/2020 showed FDG avid right upper lobe mass measuring 12.1 x 5.6 cm. There was mild activity in a 1.5 cm subcarinal lymph node, consistent with metastatic disease. Postobstructive atelectasis with right upper and middle lobe interstitial thickening was suspicious for carcinomatosis. I had seen her initially on 02/20/2020. As her disease appeared to be localized by clinical evaluation, she was recommended to undergo radiation concurrently with weekly carboplatin/paclitaxel chemotherapy. As she had symptoms of impending superior vena cava obstruction and she had poor peripheral venous access, she received several fractions of radiation prior to her week 1 chemotherapy infusion which was administered on 03/12/2020. With that treatment she was able to complete the full dose of paclitaxel, but the carboplatin was interrupted due to development of acute shortness of breath and pulmonary congestion. An infusion reaction was suspected, but given her underlying lung disease and locally advanced malignancy, I was not certain of that. In any case, with additional steroid and pulmonary nebulizers her symptoms improved, and she was able to continue her radiation. On 03/19/2020 she she continued with her week 2 chemotherapy, limited to paclitaxel alone. She tolerated it well. At that point she was showing significant clinical improvement, and she also appeared to be showing significant response by follow-up CT imaging. With her week 3 chemotherapy on 03/27/2020, she restarted paclitaxel in combination with carboplatin, and she tolerated it well. She continued with week 4 treatment on 04/07/2020. On 04/18/2020 she was admitted to the hospital after presenting to the emergency room with fever and shortness of breath. She was just mildly neutropenic. CT pulmonary angiogram showed no evidence of pulmonary embolism. She was noted to have a large right upper lobe mass extending along the mediastinal border with encasement of the pulmonary artery branches to the right middle lobe. The mass was noted to involve the lower superior vena cava and right superior pulmonary vein, but it was noted to be significantly smaller compared to the previous study with much less involvement of the superior vena cava and of the pulmonary vein. She continued anticoagulation with apixaban. Following discharge from the hospital she was able to continue with her radiation. She completed treatment on 04/29/2020 to a total dose of 6000 cGy administered in 30 fractions. With the improvement on her restaging CT scans, she was felt to be eligible to begin maintenance immunotherapy with durvalumab. However, at that point she was feeling terrible, and her further treatment was deferred. Her other medical illnesses include hypertension and COPD. She also has had atrial fibrillation. She has a remote history of cervical cancer. She also has history of migraine headaches, and she has anxiety/depression. She has a history of smoking 1 pack of cigarettes daily for 40 years, which she has cut down. INTERIM HISTORY: On 09/07/2020 she was seen in the emergency room with nausea/vomiting and dizziness. CT angiogram of the head/neck showed no evidence of carotid or vertebral artery stenosis. Her CT pulmonary angiogram showed a mild decrease in the right suprahilar mass measuring 4.4 x 3.5 cm compared to 4.9 x 4.1 cm on the prior study from April. There was narrowing of the airway to the right upper lobe and narrowing of the airways to the right middle lobe and lower lobes similar to the previous study. There was new bilateral patchy and reticular airspace opacities located immediately in both lungs, right greater than left, suggestive of postradiation changes. Other considerations included postobstructive pneumonitis and lepidic spread of disease. There was interval increase in the size of a small right pleural effusion. With those findings she was referred back to Dr. Meadows for further management. A repeat chest CT on 11/05/2020 showed improved right-sided pleural effusion with little change in the size of the right hilar mass. There was persistent encasement of the right upper lobe bronchus and distal right mainstem bronchus and there were diffuse infiltrates noted in the right upper lobe. There was no obvious mediastinal lymphadenopathy. She was seen by Dr. Meadows again on 12/19/2020. At that time she was having increased shortness of breath and her chest x-ray showed a large right pleural effusion. She underwent thoracentesis on 12/23/2020. The pleural fluid cytology did come back positive. She is seen now for a follow-up visit. She says she felt better after the thoracentesis, but within a short time her breathing had gotten worse again. She has limited activity. She does not tolerate being without oxygen. Her ECOG score is 2. She has good appetite. She has not had fever. She occasionally has sweating at night. She has not had sore mouth or throat. She says she always has cough, but it is productive of clear sputum. She has having significant pain all through her right chest, and she says it hurts like hell to cough. She occasionally has nausea. She has ongoing problems with constipation. Bladder function has been okay. She has chronic neck and back pain. She does not complain of headache. She occasionally has dizziness. She has no numbness/paresthesia or other focal neurologic symptoms. Medications: Amiodarone HCl 1 Tablet (of 200 mg) Oral b.i.d., Ipratropium-Albuterol 3 mL (of 0.5-2.5 (3) mg/3mL) Solution Inhalation four times a day PRN, KlonoPIN 1 Tablet (of 0.5 mg) Oral daily, Lisinopril 1 Tablet (of 10 mg) Oral daily, oxyCODONE HCl 1 - 2 Tablet (of 5 mg) Tablet Oral q 4 hours, Saline Nasal [place] 1 (0.65 %) Solution Nasal daily, Xarelto 1 Tablet (of 15 mg) Oral daily, Zoloft 1 Tablet (of 50 mg) Oral daily Allergies: No Known Allergies. Vital Signs: Performed on Jan 01, 2021 10:05 Height - 66.00 in Weight - 136.2 lbs (LOW) BSA - 1.70 sq.m BMI - 21.98 Temperature - 97.2 F (LOW) Pulse - 88 /min Respiration - 18 /min BP - 176/84 mm(hg) (HIGH) O2 Sat - 97 % Pain - 8 Fatigue - 7 Physical Examination: Constitutional - She appears generally weak, Eyes - Sclerae nonicteric. Conjunctivae clear, ENMT - No lesions noted in the oral cavity, Hematologic/Lymphatic - No cervical, clavicular, or axillary adenopathy, Respiratory - Lungs show diminished air movement bilaterally, worse on the right. There is mild expiratory wheezing bilaterally, Cardiovascular - Heart rhythm is regular. There is no murmur, gallop, or rub noted, Abdomen - Soft. Liver and spleen are not enlarged. There is no abdominal mass or ascites noted and there is no inguinal adenopathy, Extremities - There is currently no edema, Neurologic - She does not appear to have any focal neurologic deficit. Lab/Imaging: Test performed on Jan 01, 2021 09:31 Sodium 136 mmol/L Potassium 4.2 mmol/L Chloride 99 mmol/L CO2 29 mmol/L Anion Gap 12.2 BUN 18 mg/dL Creatinine 0.7 mg/dL Cr Clearance (Est) 72.4600 mL/min eGFR 83.7 mL/min Glucose 100 mg/dL Osmolality - Calculated 284 mOsm/kg Calcium 9.4 mg/dL Protein, Total 6.7 g/dL Albumin 3.7 g/dL Globulin 3.0 g/dL Bilirubin, Total 0.3 mg/dL ALT (SGPT) 80 U/L AST (SGOT) 41 U/L Alkaline Phosphatase 190 IU/L WBC 8.1 10 3/uL RBC 5.01 10 6/uL HGB 13.3 g/dL HCT 43.1 % MCV 86.0 fl MCH 26.5 pg MCHC 30.9 g/dL RDW 16.8 % Platelet Count 386 10 3/cmm MPV 8.8 fL Neutrophils 6.45 10 3/uL Lymphocytes 0.7 10 3/uL Monocytes 0.8 10 3/uL Eosinophils 0.1 10 3/uL Basophils 0.1 10 3/uL Neutrophil % 79.6 % Lymphocyte % 8.4 % Monocyte % 9.6 % Eosinophil % 1.1 % Basophils % 0.7 % NRBC % 0 % Problem List: 1. Adenocarcinoma involving the upper lobe of the right lung, by clinical evaluation stage at least IIIB (T4, N2, M0). 2. She underwent bronchoscopy/EBUS with right upper lobe endobronchial biopsy and with FNA biopsy of station 4R lymph node on 02/08/2020. 3. Hypertension. 4. COPD. 5. Atrial fibrillation. 6. She has history of migraine headaches. 7. She has remote history of cervical cancer, treated with cone biopsy. 8. Anxiety/depression. 9. Nicotine dependence. Problems Addressed with this Encounter and Plan: 1. Patient with adenocarcinoma involving the upper lobe of the right lung, by clinical evaluation stage at least IIIB (T4, N2, M0). She has undergone ongoing radiation concurrently with weekly carboplatin/paclitaxel chemotherapy. Her chemotherapy was complicated by suspected infusion reaction with her initial dose of carboplatin. The carboplatin was held at week 2, but reinstituted with her weeks 3 and 4 treatments. She had significant clinical improvement during her chemoradiation. However, on 04/17/2019 she required admission to the hospital for shortness of breath/hypoxia and fever. Her repeat CT scans had shown significant improvement in the right upper lobe lung cancer compared to the March 2020 CT. In particular, there was much less involvement of the superior vena cava and of the pulmonary vein. She initially improved on empiric antibiotic therapy. However, she then continued to have intermittent fever, and she had significant decline in her performance status. Due to her ongoing symptoms and overall poor clinical status, I did not attempt to start maintenance immunotherapy. She had continued follow-up with Dr. Meadows. As of her visit with him on 12/19/2020, she reported increased shortness of breath and she was noted to have increased right pleural effusion. She had symptomatic improvement following thoracentesis on 12/23/2020, but the benefit was temporary. Her pleural fluid cytology did come back positive, consistent with progression of the lung cancer. She will be scheduled for restaging chest CT. I will see her to discuss further treatment options when those results are available. If she has had a significant reaccumulation of pleural fluid, I will plan to refer her for placement of a tunneled pleural drainage catheter. 2. 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 It had shown improvement by followup CT scan. She continues anticoagulation with rivaroxaban. 3. She has had atrial fibrillation. It is being managed with amiodarone. Signed By: Jeff Almeida M.D. <<Signature on File>>
== END 2021-01-01 08:47 | disposition home or self-care (01) ==
PROVIDERS: PCP Internal Medicine; Visit Provider Internal Medicine Medical Oncology
DX: C34.11 Malignant neoplasm of upper lobe, right bronchus or lung (principal); C77.1 Secondary and unspecified malignant neoplasm of intrathoracic lymph nodes; I48.91 Unspecified atrial fibrillation; J44.9 Chronic obstructive pulmonary disease, unspecified; Z85.41 Personal history of malignant neoplasm of cervix uteri; F41.8 Other specified anxiety disorders; F17.210 Nicotine dependence, cigarettes, uncomplicated; Z79.01 Long term (current) use of anticoagulants; Z79.899 Other long term (current) drug therapy
CPT/HCPCS: 36415; 80053; 85025; 99214

== ENCOUNTER 2021-01-06 08:34 | Outpatient (CLI) | payer MEDICARE, MEDICAID, SELFPAY ==
--- NOTE | 2021-01-06 08:40 | CT_ITS ---
WS: [id number] CT CHEST TECHNIQUE: Contrast enhanced CT of the chest with coronal and sagittal reformatted images. CLINICAL INFORMATION: LUNG CANCER COMPARISON: CT November 05, 2020, September 07, 2020 DLP: 663.[address] scans at [facility] use at least one of these dose optimization techniques: automated e xposure control; mA and/or kV adjustment per patient size (includes targeted exams where dose is matc hed to clinical indication); or iterative reconstruction. FINDINGS: Moderate to large right pleural effusion has increased from previous. Compressive atelectasis right l ower lobe. Collapse and consolidation of the right upper lobe with obstruction of the right upper rachael nstem bronchus. Patchy infiltrates in the right middle lobe and right lower lobe along the fissure. P leural effusion results in mild right left mediastinal shift. Soft tissue thickening involving the ri ght hilum and supra hilum with narrowing of the distal right mainstem bronchus. Occlusion of the righ t upper lobe bronchus with high-grade narrowing of the right middle lobe bronchus.New ovoid opacity i n the left lower lobe measuring 1.6 x 1.3 cm nonspecific but suspicious for metastatic disease. Left lung is otherwise well aerated. Small amount of induration and inflammatory stranding in the right inferior breast along the chest wa ll may be due to radiation therapy. There is also thickening of the right inferior pectoralis with lo ss of the normal fat planes suspicious for transthoracic disease. This is new from previous. Hepatomegaly partially visualized. Small esophageal hiatal hernia. Adrenal glands are normal. Partial ly visualized calcified left renal lesion. Normal caliber thoracic aorta. Vascular calcification. Proximal main pulmonary arteries are normal. CT/CT chest w con* [id number] IMPRESSION: 1. Moderate to large right pleural effusion has progressed from previous with mild right to left mediastinal shift. 2. Right hilar and suprahilar mass with narrowing of the right distal main aditi m bronchus is similar to previous. Occlusion of the right upper lobe and right middle lobe bronchus 3. Collapse of the right upper lobe is new from previous 4. Patchy infiltrates likely postobstructive pneumonia in the right lower lobe along the fissure and right middle lobe 5. New solid ovoid opacity in the left lower lobe measuring 1.3 x 1.6 cm is no nspecific and may be infectious or inflammatory but suspicious for metastatic d isease. This could be further evaluated with PET/CT after pneumonia treatment. 6. There is thickening of the right inferior pectoralis with loss of the teofilo l fat planes suspicious for chest wall invasion.
[2021-01-06] MEDS: iohexol 300 mg/mL 100 mL Btl IV (09:12)
== END 2021-01-06 08:35 | disposition home or self-care (01) ==
PROVIDERS: PCP Internal Medicine; Visit Provider Internal Medicine Medical Oncology
DX: D50.8 Other iron deficiency anemias (principal); C34.11 Malignant neoplasm of upper lobe, right bronchus or lung; J90 Pleural effusion, not elsewhere classified; J98.11 Atelectasis; J18.8 Other pneumonia, unspecified organism
CPT/HCPCS: 71260; Q9967

== ENCOUNTER 2021-01-07 08:56 | Day surgery (SDC) | payer MEDICARE, MEDICAID, SELFPAY ==
[2021-01-07] VITALS (13 sets, daily range): BP systolic 110–169; BP diastolic 63–117; PULSE 87–90; RESP 18–89; TEMP 36.3–36.9; O2SAT 92–97; BMI 22.3
[2021-01-07] MEDS: sodium chloride 0.9% 1,000 ML 30 ML IV (09:54)
--- NOTE | 2021-01-07 10:04 | W.PM.OPSUD ---
Surgery/Procedure H&P Update DATE OF PROCEDURE: January 07, 2021 DATE H&P PERFORMED: 12/19/20 H&P UPDATE INFORMATION: I have reviewed H&P completed within last 30 days, I have examined patient prior to procedure and No changes to prior documentation PREOP DIAGNOSIS: Malignant pleural effusion PLANNED PROCEDURE: Right-sided Pleurx catheter placement Operation Date: 01/07/21 10:35 Proposed Procedures p [place] Drain Placement Pleural Catheter Insertion(Not Applicable) - Biptsering Meadows MD
[2021-01-07] MEDS: fentaNYL 50 mcg/mL INJ 2mL 25 MCG IVP ×3 (10:12→10:28)
[2021-01-07] MEDS: midazolam 1 mg/mL INJ 5 ML IV (10:13)
[2021-01-07] MEDS: midazolam 1 mg/mL INJ 2 mL IVP (10:26)
--- NOTE | 2021-01-07 10:31 | SUR.OPER ---
Addendum entered by Daisy Jimenez RN 01/07/21 10:37: 25 mL of 1% Lidocaine used as local during procedure. Original Note: Placement of right pleurx ranjit drain per Dr. Meadows. 20 mL Lidocaine 1% as local given to right back insertion site. Total of 75 mcg Fentanyl and 2 mg Versed given for moderate sedation during procedure.
--- NOTE | 2021-01-07 10:48 | SUR.OPER ---
1045 1400 mL clear, edel fluid removed from right plueral effusion.
--- NOTE | 2021-01-07 10:52 | XR_ITS ---
WS: [id number] Exam: XR chest 1V portable [id number] Date/Time of Exam: 01/07/2021 10:52 AM Reason For Exam: status post pleurx drain placement Comparison 12/23/2020. There is increasing infiltrate in the right lung and increased pleural effusion. A right chest draina ge tube has been placed in the lower right pleural cavity. The tube may be kinked or this may be seco ndary to radiographic projection. There appears to be some atelectasis in the lingula. Normal heart s ize. The mediastinum is not widened. There is volume loss of the right lung. Airway deviation to the right of midline. XR/XR chest 1V portable [id number] IMPRESSION: 1. Increasing infiltrate in the right lung and increased right pleural effusion since prior study. 2. A pleural drainage tube is been placed in the lower right pleural cavity. Th e tube may be kinked or folded. The appearance could also be due to radiographi c projection.
--- NOTE | 2021-01-07 11:14 | PM.OP ---
Operative Report Date of procedure: January 07, 2021 Pre-op Diagnosis: Malignant pleural effusion Post-op diagnosis: same Procedure: Name of the procedure: Right-sided Pleurx catheter placement Indication: Malignant pleural effusion. Anesthesia: Moderate sedation Local: 1% lidocaine 25 mL. Description of the procedure: The patient was brought to the OR after consent was obtained. The patient was placed in left lateral position. Moderate sedation in addition to local anesthetic was used. Using the ultrasound a safe fluid pocket was identified in the right seventh intercostal space in the midaxillary line. The site was marked. The patient was then prepared using sterile technique. 1% lidocaine was used to anesthetize the skin and subcutaneous tissue periosteum and the pleural space was entered. Serous fluid was aspirated. The introducer needle was then introduced into the pleural space. The guide wire was introduced and left in place. About 6 cm from the initial introduction site in the anterolateral chest wall a second incision was made. The pleural catheter was then tunneled under the skin with the help of a trocar. The initial site was then dilated and the Pleurx catheter was advanced into the pleural space without any difficulty. The incision sites were sutured. There was good hemostasis. 1400 cc of serosanguineous fluid was drained. Complications: None
--- NOTE | 2021-01-07 11:40 | SUR.PHASEII ---
order for home health referral received. pt has no preference. [facility] is not taking new patients. waiting for call back from [facility].
== END 2021-01-07 12:26 | disposition home or self-care (01) ==
PROVIDERS: PCP Internal Medicine; Visit Provider Internal Medicine Critical Care Medicine
PROC: (CPT 32550; principal; 2021-01-07 10:25)
DX: J90 Pleural effusion, not elsewhere classified (principal); F17.210 Nicotine dependence, cigarettes, uncomplicated
CPT/HCPCS: 32550; 71045; 96374; 96375; C1729; J2250; J3010; J7030

== ENCOUNTER 2021-01-09 20:45 | Emergency (ER) | payer MEDICARE, MEDICAID, SELFPAY ==
[2021-01-09 21:26] VITALS: BP 98/63; PULSE 102; RESP 24; TEMP 38.8; O2SAT 92; BMI 22.3
--- NOTE | 2021-01-09 21:47 | XRR_ITS ---
PROCEDURE INFORMATION: Exam: XR Chest Exam date and time: 01/09/2021 9:47 PM Age: 65 years old Clinical indication: Shortness of breath; Patient HX: HX lung CA; Additional info: SOB TECHNIQUE: Imaging protocol: XR of the chest. Views: 1 view. COMPARISON: CR XR chest 1V portable [id number] 01/07/2021 10:54 AM FINDINGS: Tubes, catheters and devices: A right-sided chest tube is present. Lungs: Volume loss and airspace opacity in the right lung is unchanged. Left basilar airspace opacity is increasing with indistinctness of the left hemidiaphragm. Pleural spaces: There is a larger right pleural effusion now moderate sized with pleural thickening or loculated pleural fluid along the right lung apex. No appreciable pneumothorax is identified. Heart/Mediastinum: Unremarkable. No cardiomegaly. Bones/joints: No acute abnormality. XR/XR chest 1V portable [id number] IMPRESSION: Larger right pleural effusion and increasing airspace opacity left lower lobe. Right lung opacity in volume loss is unchanged
--- NOTE | 2021-01-09 21:47 | W.ED.SOB ---
Documented by User: Quincy Ballesteros MD 01/12/21 09:43 HPI - SOB/Dyspnea General: Chief Complaint: Shortness of Breath/Dyspnea Stated Complaint: Side tube needs to be drained Time Seen by Provider: 01/09/21 21:47 History of Present Illness: HPI Narrative: Ms. Denis is a 65-year-old lady with significant past medical history of COPD, lung cancer, recurrent pleural effusion status post recent placement of [place] drain who presents emergency department due to generalized malaise and shortness of breath. She reports feeling relatively well after her surgical procedure on 01/07. Earlier today she felt somewhat off and was noted to be more confused. Additionally she noted perhaps a slight fever last night. Home health was supposed to come to drain her drain today however they were unfamiliar with it and therefore unable to. She does have more shortness of breath and cough than baseline. Overall the intensity symptoms is moderate. The course has been worsening. 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 Surgical History S/P bronchoscopy Family History Other CAD (coronary artery disease) Cancer Dementia Hypertension Lung disease Stroke Denies family history of Diabetes Hyperlipidemia Chronic kidney disease (CKD) Family history of premature coronary artery disease Social History Smoking and tobacco status: current every day smoker cigarettes Years cigarettes smoked: 44 [ Other cigarette details: Hx of 1 PPD x 45 Years ] Quit status (tobacco): considering quitting Smoking risk assessment/counseling performed?: Yes Tobacco counseling given: counseling >3 minutes Alcohol intake: current Alcohol intake frequency: few times a month Alcohol type: beer Counseling given: No Counseling given: No Lives independently: Yes Household members: family Marital status: Current occupational status: retired History of recent travel: No Current gender identity: Female Physical Exam Narrative: EXAM NARRATIVE: GENERAL/CONSTITUTIONAL -mild to moderately ill-appearing. No acute distress. Eyes - PERRL, no conjunctival injection ENMT - Atraumatic external nose and ears. Moist mucous membranes NECK - supple. trachea midline CARDIOVASCULAR -tachycardic rate and regular rhythm. Peripheral pulses 2+ and equal RESPIRATORY - tachypnea. Mild increased work of breathing. Markedly diminished at the right bases. ABDOMEN/GI - Nontender. Nondistended. No tenderness to percussion or evidence of peritonitis MSK - Extremities without obvious deformity or tenderness to palpation SKIN - Warm, Dry NEURO - alert and appropriately oriented. Cranial nerve II through XII intact. Strength and sensation intact. Moves all extremities. Patient does have mildly delayed responses with word finding difficulty. PSYCH - Appropriate mood and affect Course ED course: - Patient was seen and evaluated by me at bedside - Patient placed on cardiac monitors, IV access obtained - Initial evaluation notable for somewhat ill appearance, diminished lung sounds at the right base. Febrile. Nonfocal neurologic exam though not normal as described above - Labs and imaging obtained and reviewed - Fluids, antibiotics given. - Labs notable for leukocytosis with neutrophilia.Metabolic panel with likely evidence of dehydration. - Imaging notable for moderate to large effusion. Head CT notable for mass with vasogenic edema and 4 mm midline shift. - I discussed results of ED evaluation with the patient. Given new brain mass, likely metastatic lesion, in the context of neurologic abnormality patient requires further evaluation by specialist not available at this facility. She was amenable to transfer. -Patient care handed off to Dr. Villalobos pending transfer to outside facility Vital Signs: Vital signs: Vital Signs Temperature 102.7 F H 01/09/21 22:04 Pulse Rate 78 01/10/21 05:16 Respiratory Rate 22 H 01/10/21 05:16 Blood Pressure 118/78 01/10/21 05:16 Pulse Oximetry 93 01/10/21 05:16 MDM - SOB/Dyspnea Medical Records: Attestation: I reviewed the patient's medical records. Lab Data: Attestation: I reviewed the patient's lab results. Labs: Lab Results 01/09/21 01/09/21 01/09/21 22:30 22:30 22:30 WBC 24.1 10^3/uL H 10 ^3/uL (4.0-10.0) RBC 4.87 10^6/uL 10^6 /uL (4.1-5.3) Hgb 13.0 g/dL g/dL (11.5-15.3) Hct 41.0 % % (37.0-47.0) MCV 84.2 fl fl (81-99) MCH 26.7 pg L pg (28.0-34.0) MCHC 31.7 g/dL g/dL (30.0-36.0) RDW 16.7 % H % (12.1-15.1) Plt Count 424 10^3/cmm H 10 ^3/cmm (130-400) MPV 9.6 fL fL (7.4-10.4) Neut % (Auto) 89.8 % % Lymph % (Auto) 1.7 % % [place] % (Auto) 7.1 % % Eos % (Auto) 0.0 % % Baso % (Auto) 0.3 % % Neut # (Auto) 21.66 10^3/uL H 1 0^3/uL (1.8-7.7) Lymph # (Auto) 0.4 10^3/uL L 10^ 3/uL (0.8-4.8) [place] # (Auto) 1.7 10^3/uL H 10^ 3/uL (0.2-0.9) Eos # (Auto) 0.0 10^3/uL 10^3/ uL (0.0-0.8) Baso # (Auto) 0.1 10^3/uL 10^3/ uL (0.0-0.1) Nucleated RBC % (a uto) 0 % % Nucleated RBCs # 0.0 /100WBC /100W BC Sodium 127 mmol/L L mmol /L (136-145) Potassium 4.0 mmol/L mmol/L (3.5-5.1) Chloride 90 mmol/L L mmol/ L (98-107) Carbon Dioxide 24 mmol/L mmol/L (22-29) Anion Gap 17.0 (5-19) BUN 20 mg/dL mg/dL (8-23) Creatinine 0.7 mg/dL mg/dL (0.5-0.9) GFR Calculation 83.7 mL/min L mL/ min (90-130) Glucose 94 mg/dL mg/dL (65-115) Calculated Osmolal ity 266 mOsm/kg L mOs m/kg (285-295) Lactic Acid 0.9 mmol/L mmol/L (0.5-2.2) Calcium 8.8 mg/dL mg/dL (8.5-10.5) Total Bilirubin 0.8 mg/dL mg/dL (0.15-1.2) AST 70 U/L H U/L (0-32) ALT 112 U/L H U/L (0-33) Alkaline Phosphata se 174 IU/L H IU/L (35-105) Troponin T Baselin e Troponin T [address] [place] Troponin T C-Reactive Protein 344.1 mg/L H mg/L (0.0-4.9) Total Protein 6.4 g/dL L g/dL (6.6-8.7) Albumin 2.9 g/dL L g/dL (3.5-5.2) Globulin 3.5 g/dL g/dL (1.3-4.6) Procalcitonin 0.37 ng/mL ng/mL (0-0.5) Urine Color Urine Appearance Urine pH Ur Specific Gravit y Urine Protein Urine Glucose (UA) Urine Ketones Urine Blood Urine Nitrate Urine Bilirubin Urine Urobilinogen Ur Leukocyte Stephanie ase Urine RBC Urine WBC Ur Squamous Epith Cells Amorphous Sediment Urine Bacteria Hyaline Casts Urine Mucus SARS-CoV-2 Ag (Rap id) 01/09/21 01/09/21 01/10/21 22:30 23:15 00:30 WBC RBC Hgb Hct MCV MCH MCHC RDW Plt Count MPV Neut % (Auto) Lymph % (Auto) [place] % (Auto) Eos % (Auto) Baso % (Auto) Neut # (Auto) Lymph # (Auto) [place] # (Auto) Eos # (Auto) Baso # (Auto) Nucleated RBC % (a uto) Nucleated RBCs # Sodium Potassium Chloride Carbon Dioxide Anion Gap BUN Creatinine GFR Calculation Glucose Calculated Osmolal ity Lactic Acid Calcium Total Bilirubin AST ALT Alkaline Phosphata se Troponin T Baselin e 15 ng/L H ng/L (0-10) Troponin T [address] [place] 18.23 ng/L H ng/L (0-10) Delta Troponin T 3.23 ABS# ABS# (0-10) C-Reactive Protein Total Protein Albumin Globulin Procalcitonin Urine Color Yellow (Yellow) Urine Appearance Clear (CLEAR) Urine pH 5 (5-7) Ur Specific Gravit y 1.015 (1.005-1.030) Urine Protein 1+ H (Negative) Urine Glucose (UA) Norm (Normal) Urine Ketones 1+ H (Negative) Urine Blood 3+ H (Negative) Urine Nitrate Negative (Negative) Urine Bilirubin 1+ H (Negative) Urine Urobilinogen 8 mg/dL H mg/dL (Negative) Ur Leukocyte Stephanie ase Negative (Negative) Urine RBC 5-10 /hpf H /hpf (0-2) Urine WBC 5-10 /hpf H /hpf (0-5) Ur Squamous Epith Cells 0-4 /hpf H /hpf (0-5) Amorphous Sediment 2+ /hpf /hpf Urine Bacteria 1+ /hpf H /hpf (NONE) Hyaline Casts 0-4 /lpf H /lpf Urine Mucus 2+ /hpf /hpf SARS-CoV-2 Ag (Rap id) 01/10/21 00:30 WBC RBC Hgb Hct MCV MCH MCHC RDW Plt Count MPV Neut % (Auto) Lymph % (Auto) [place] % (Auto) Eos % (Auto) Baso % (Auto) Neut # (Auto) Lymph # (Auto) [place] # (Auto) Eos # (Auto) Baso # (Auto) Nucleated RBC % (a uto) Nucleated RBCs # Sodium Potassium Chloride Carbon Dioxide Anion Gap BUN Creatinine GFR Calculation Glucose Calculated Osmolal ity Lactic Acid Calcium Total Bilirubin AST ALT Alkaline Phosphata se Troponin T Baselin e Troponin T [address] [place] Troponin T C-Reactive Protein Total Protein Albumin Globulin Procalcitonin Urine Color Urine Appearance Urine pH Ur Specific Gravit y Urine Protein Urine Glucose (UA) Urine Ketones Urine Blood Urine Nitrate Urine Bilirubin Urine Urobilinogen Ur Leukocyte Stephanie ase Urine RBC Urine WBC Ur Squamous Epith Cells Amorphous Sediment Urine Bacteria Hyaline Casts Urine Mucus SARS-CoV-2 Ag (Rap id) Negative (Negative) EKG Data^: EKG 1: Attestation: I personally reviewed and interpreted this EKG as follows: EKG Interpretation Date: 01/10/21 EKG interpretation time: 00:12 Interpretation: Twelve-lead EKG shows a regular sinus rhythm at a rate of 93. FL interval 173, QRS duration 114, QTc 399. Normal axis. Interpretation: Sinus rhythm Discharge Plan Discharge Patient Disposition: Xfer Short-Term Hosp Clinical Impression: Brain mass Sepsis Qualifiers: Sepsis type: sepsis due to unspecified organism Condition: Stable Coding Level of Care Code ED Finishing Inspector for Chg Fwd Documented by User: Jg Villalobos DO 01/10/21 02:27 HPI - SOB/Dyspnea General: Chief Complaint: Shortness of Breath/Dyspnea Stated Complaint: Side tube needs to be drained Time Seen by Provider: 01/09/21 21:47 PFSH ED PFSH: Medical History Hyponatremia Lung cancer Lung mass Osteoarthritis of left knee Panic disorder [episodic paroxysmal anxiety] Port-A-Cath in place 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 Surgical History S/P bronchoscopy Family History Other CAD (coronary artery disease) Cancer Dementia Hypertension Lung disease Stroke Denies family history of Diabetes Hyperlipidemia Chronic kidney disease (CKD) Family history of premature coronary artery disease Social History Smoking and tobacco status: current every day smoker cigarettes Years cigarettes smoked: 44 [ Other cigarette details: Hx of 1 PPD x 45 Years ] Quit status (tobacco): considering quitting Smoking risk assessment/counseling performed?: Yes Tobacco counseling given: counseling >3 minutes Alcohol intake: current Alcohol intake frequency: few times a month Alcohol type: beer Counseling given: No Counseling given: No Lives independently: Yes Household members: family Marital status: Current occupational status: retired History of recent travel: No Current gender identity: Female Course Vital Signs: Vital signs: Vital Signs Temperature 102.7 F H 01/09/21 22:04 Pulse Rate 78 01/10/21 05:16 Respiratory Rate 22 H 01/10/21 05:16 Blood Pressure 118/78 01/10/21 05:16 Pulse Oximetry 93 01/10/21 05:16 MDM - SOB/Dyspnea MDM Narrative: Medical decision making narrative: 65-year-old female checked out to me by Dr. Ballesteros at shift change. This lady has a history of COPD and lung cancer. She presents with a fever, mental status changes, white blood cell count elevation. She has a pleural effusion accumulation on the side she has a [place] drain she has what appears to be an infiltrate on that side as well. Her head CT, though, shows a new finding of a mass in the left temporoparietal area with vasogenic edema and mild midline shift. She has been covered with antibiotics given her leukocytosis. The question is is her mental status change, and gait problem from sepsis, or from the newly found mass. We have no neurology or neurosurgical services here. She has been transferred to [facility] in [facility]. Dr. Chirinos has accepted. Lab Data: Labs: Lab Results 01/09/21 01/09/21 01/09/21 22:30 22:30 22:30 WBC 24.1 10^3/uL H 10 ^3/uL (4.0-10.0) RBC 4.87 10^6/uL 10^6 /uL (4.1-5.3) Hgb 13.0 g/dL g/dL (11.5-15.3) Hct 41.0 % % (37.0-47.0) MCV 84.2 fl fl (81-99) MCH 26.7 pg L pg (28.0-34.0) MCHC 31.7 g/dL g/dL (30.0-36.0) RDW 16.7 % H % (12.1-15.1) Plt Count 424 10^3/cmm H 10 ^3/cmm (130-400) MPV 9.6 fL fL (7.4-10.4) Neut % (Auto) 89.8 % % Lymph % (Auto) 1.7 % % [place] % (Auto) 7.1 % % Eos % (Auto) 0.0 % % Baso % (Auto) 0.3 % % Neut # (Auto) 21.66 10^3/uL H 1 0^3/uL (1.8-7.7) Lymph # (Auto) 0.4 10^3/uL L 10^ 3/uL (0.8-4.8) [place] # (Auto) 1.7 10^3/uL H 10^ 3/uL (0.2-0.9) Eos # (Auto) 0.0 10^3/uL 10^3/ uL (0.0-0.8) Baso # (Auto) 0.1 10^3/uL 10^3/ uL (0.0-0.1) Nucleated RBC % (a uto) 0 % % Nucleated RBCs # 0.0 /100WBC /100W BC Sodium 127 mmol/L L mmol /L (136-145) Potassium 4.0 mmol/L mmol/L (3.5-5.1) Chloride 90 mmol/L L mmol/ L (98-107) Carbon Dioxide 24 mmol/L mmol/L (22-29) Anion Gap 17.0 (5-19) BUN 20 mg/dL mg/dL (8-23) Creatinine 0.7 mg/dL mg/dL (0.5-0.9) GFR Calculation 83.7 mL/min L mL/ min (90-130) Glucose 94 mg/dL mg/dL (65-115) Calculated Osmolal ity 266 mOsm/kg L mOs m/kg (285-295) Lactic Acid 0.9 mmol/L mmol/L (0.5-2.2) Calcium 8.8 mg/dL mg/dL (8.5-10.5) Total Bilirubin 0.8 mg/dL mg/dL (0.15-1.2) AST 70 U/L H U/L (0-32) ALT 112 U/L H U/L (0-33) Alkaline Phosphata se 174 IU/L H IU/L (35-105) Troponin T Baselin e Troponin T [address] [place] Troponin T C-Reactive Protein 344.1 mg/L H mg/L (0.0-4.9) Total Protein 6.4 g/dL L g/dL (6.6-8.7) Albumin 2.9 g/dL L g/dL (3.5-5.2) Globulin 3.5 g/dL g/dL (1.3-4.6) Procalcitonin 0.37 ng/mL ng/mL (0-0.5) Urine Color Urine Appearance Urine pH Ur Specific Gravit y Urine Protein Urine Glucose (UA) Urine Ketones Urine Blood Urine Nitrate Urine Bilirubin Urine Urobilinogen Ur Leukocyte Stephanie ase Urine RBC Urine WBC Ur Squamous Epith Cells Amorphous Sediment Urine Bacteria Hyaline Casts Urine Mucus SARS-CoV-2 Ag (Rap id) 01/09/21 01/09/21 01/10/21 22:30 23:15 00:30 WBC RBC Hgb Hct MCV MCH MCHC RDW Plt Count MPV Neut % (Auto) Lymph % (Auto) [place] % (Auto) Eos % (Auto) Baso % (Auto) Neut # (Auto) Lymph # (Auto) [place] # (Auto) Eos # (Auto) Baso # (Auto) Nucleated RBC % (a uto) Nucleated RBCs # Sodium Potassium Chloride Carbon Dioxide Anion Gap BUN Creatinine GFR Calculation Glucose Calculated Osmolal ity Lactic Acid Calcium Total Bilirubin AST ALT Alkaline Phosphata se Troponin T Baselin e 15 ng/L H ng/L (0-10) Troponin T [address] [place] 18.23 ng/L H ng/L (0-10) Delta Troponin T 3.23 ABS# ABS# (0-10) C-Reactive Protein Total Protein Albumin Globulin Procalcitonin Urine Color Yellow (Yellow) Urine Appearance Clear (CLEAR) Urine pH 5 (5-7) Ur Specific Gravit y 1.015 (1.005-1.030) Urine Protein 1+ H (Negative) Urine Glucose (UA) Norm (Normal) Urine Ketones 1+ H (Negative) Urine Blood 3+ H (Negative) Urine Nitrate Negative (Negative) Urine Bilirubin 1+ H (Negative) Urine Urobilinogen 8 mg/dL H mg/dL (Negative) Ur Leukocyte Stephanie ase Negative (Negative) Urine RBC 5-10 /hpf H /hpf (0-2) Urine WBC 5-10 /hpf H /hpf (0-5) Ur Squamous Epith Cells 0-4 /hpf H /hpf (0-5) Amorphous Sediment 2+ /hpf /hpf Urine Bacteria 1+ /hpf H /hpf (NONE) Hyaline Casts 0-4 /lpf H /lpf Urine Mucus 2+ /hpf /hpf SARS-CoV-2 Ag (Rap id) 01/10/21 00:30 WBC RBC Hgb Hct MCV MCH MCHC RDW Plt Count MPV Neut % (Auto) Lymph % (Auto) [place] % (Auto) Eos % (Auto) Baso % (Auto) Neut # (Auto) Lymph # (Auto) [place] # (Auto) Eos # (Auto) Baso # (Auto) Nucleated RBC % (a uto) Nucleated RBCs # Sodium Potassium Chloride Carbon Dioxide Anion Gap BUN Creatinine GFR Calculation Glucose Calculated Osmolal ity Lactic Acid Calcium Total Bilirubin AST ALT Alkaline Phosphata se Troponin T Baselin e Troponin T 120 Min [place] Troponin T C-Reactive Protein Total Protein Albumin Globulin Procalcitonin Urine Color Urine Appearance Urine pH Ur Specific Gravit y Urine Protein Urine Glucose (UA) Urine Ketones Urine Blood Urine Nitrate Urine Bilirubin Urine Urobilinogen Ur Leukocyte Stephanie ase Urine RBC Urine WBC Ur Squamous Epith Cells Amorphous Sediment Urine Bacteria Hyaline Casts Urine Mucus SARS-CoV-2 Ag (Rap id) Negative (Negative) Discharge Plan Discharge Patient Disposition: Xfer Short-Term Hosp Clinical Impression: Brain mass Sepsis Qualifiers: Sepsis type: sepsis due to unspecified organism Condition: Stable Coding Level of Care Code ED Finishing Inspector for Barbara Cruz
--- NOTE | 2021-01-09 21:48 | ECG_ITS ---
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 Architect: : 1955 Requested By: Quincy Ballesteros Order Number: [id number] Reading MD: BENJAMÍN SORIA Measurements Intervals [place] Rate: 93 P: 54 MA: 173 QRS: 63 QRSD: 114 T: 66 QT: 320 QTc: 399 Interpretive Statements SINUS RHYTHM MODERATE INTRAVENTRICULAR CONDUCTION DELAY [110+ ms QRS DURATION] NONSPECIFIC T-WAVE ABNORMALITY Compared to ECG 09/07/2020 01:58:11 Intraventricular conduction delay now present T-wave abnormality now present Electronically Signed On 01-10-2021 18:23:41 CDT by BENJAMÍN SORIA [id number] f
[2021-01-09 22:04] VITALS: BP 110/68; PULSE 105; RESP 28; TEMP 39.3; O2SAT 92
--- NOTE | 2021-01-09 22:22 | CTR_ITS ---
PROCEDURE INFORMATION: Exam: CT Head Without Contrast Exam date and time: 01/09/2021 10:22 PM Age: 65 years old Clinical indication: Altered mental status/memory loss and other: General weakness; Confusion or disorientation; Additional info: Unsteady gait, AMS TECHNIQUE: Imaging protocol: Computed tomography of the head without contrast. Radiation optimization: All CT scans at this facility use at least one of these dose optimization techniques: automated exposure control; mA and/or kV adjustment per patient size (includes targeted exams where dose is matched to clinical indication); or iterative reconstruction. COMPARISON: CT head wo con* [id number] 09/07/2020 2:19 AM RADIATION DOSE METRICS: Total DLP (mGy-cm): 1435.77 FINDINGS: Brain: There is a mass with hyperdense rim in the periphery of the left temporal/parietal lobe measuring 1.7 x 1.3 x 1.6 cm best seen on coronal image 24. .There is new adjacent vasogenic edema in the left temporoparietal lobes with mild midline shift to the right measuring 4 mm. There is mild volume loss and periventricular low density compatible with chronic small vessel disease changes. Cerebral ventricles: No ventriculomegaly. Paranasal sinuses: Visualized sinuses are unremarkable. No fluid levels. Mastoid air cells: Visualized mastoid air cells are well aerated. Bones/joints: Unremarkable. No acute fracture. Soft tissues: Unremarkable. Other findings: No additional mass or edema is identified. There is no acute hemorrhage. CT/CT head wo con* [id number] IMPRESSION: There is a mass in the periphery of the left temporal/parietal lobe with abundant adjacent vasogenic edema and mild midline shift. MRI is recommended for further evaluation. Radiation Dose CTDIVOL = (mGy): DLP = 1435.77 (mGy-cm)
[2021-01-09 22:52] LABS: Lactic Sepsis W/Reflex 0.9 mmol/L (0.5-2.2)
[2021-01-09 22:54] LABS: Troponin(5th) Baseline 15 ng/L (0-10)
[2021-01-09 22:55] LABS: Alanine Aminotransferase 112 U/L (0-33); Albumin Level 2.9 g/dL (3.5-5.2); Alkaline Phosphatase 174 IU/L (35-105); Aspartate Amino Transferase 70 U/L (0-32); Basophils # 0.1 10^3/uL (0.0-0.1); Basophils % 0.3 %; Blood Urea Nitrogen 20 mg/dL (8-23); C Reactive Protein 344.1 mg/L (0.0-4.9); Calcium 8.8 mg/dL (8.5-10.5); Carbon Dioxide 24 mmol/L (22-29); Chloride 90 mmol/L (98-107); Globulin 3.5 g/dL (1.3-4.6); Glomerular Filtration Rate 83.7 mL/min (90-130); Glucose 94 mg/dL (65-115); Lymphocytes # 0.4 10^3/uL (0.8-4.8); Lymphocytes % 1.7 %; Mean Corpuscular HGB Conc 31.7 g/dL (30.0-36.0); Mean Corpuscular Hemoglobin 26.7 pg (28.0-34.0); Mean Corpuscular Volume 84.2 fl (81-99); Mean Platelet Volume 9.6 fL (7.4-10.4); Monocytes # 1.7 10^3/uL (0.2-0.9); Monocytes % 7.1 %; Neutrophils # 21.66 10^3/uL (1.8-7.7); Neutrophils % 89.8 %; Nucleated Red Blood Cells % 0 %; Osmolality Calculated 266 mOsm/kg (285-295); Platelet Count 424 10^3/cmm (130-400); Red Blood Count 4.87 10^6/uL (4.1-5.3); Red Cell Distribution Width 16.7 % (12.1-15.1); Sodium 127 mmol/L (136-145); Total Bilirubin 0.8 mg/dL (0.15-1.2); Total Protein 6.4 g/dL (6.6-8.7); White Blood Count 24.1 10^3/uL (4.0-10.0)
[2021-01-09 23:01] LABS: Procalcitonin 0.37 ng/mL (0-0.5)
[2021-01-09] MEDS: piperacillin-tazobactam 4.5 GM in sodium chloride 0.9% (plus) 50 ML IV (23:04)
[2021-01-09 23:45] LABS: Add Urine Microscopic? YES; Bilirubin Urine 1+ (Negative); Blood Urine 3+ (Negative); Glucose Urine UA Norm (Normal); Ketones Urine 1+ (Negative); Leukocyte Esterase Urine Negative (Negative); Nitrate Urine Negative (Negative); Protein Urine 1+ (Negative); Specific Gravity, Urine 1.015 (1.005-1.030); Urine Appearance Clear (CLEAR); Urine Color Yellow (Yellow); Urobilinogen Urine 8 mg/dL (Negative); pH Urine 5 (5-7)
--- NOTE | 2021-01-09 23:48 | ECG_ITS ---
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: : 1955 Requested By: Quincy Ballesteros Order Number: [id number] Reading MD: BENJAMÍN SORIA Measurements Intervals [place] Rate: 100 P: 55 SD: 171 QRS: 60 QRSD: 106 T: 62 QT: 283 QTc: 366 Interpretive Statements SINUS TACHYCARDIA POSSIBLE LEFT ATRIAL ENLARGEMENT [-0.1mV P-WAVE IN V1/V2] NONSPECIFIC T-WAVE ABNORMALITY ABNORMAL RHYTHM ECG Compared to ECG 09/07/2020 01:58:11 T-wave abnormality now present Sinus rhythm no longer present Electronically Signed On 01-10-2021 18:25:27 CDT by BENJAMÍN SORIA [id number] f
[2021-01-09 23:49] LABS: Add Urine Culture? No; Amorphous Sediment Urine 2+ /hpf; Bacteria Urine 1+ /hpf; Hyaline Casts Urine 0-4 /lpf; Mucus Urine 2+ /hpf; Squamous Epithelial Cell Urine 0-4 /hpf (0-5)
[2021-01-10 01:11] LABS: Troponin 5 2HR 18.23 ng/L (0-10); Troponin 5 2HR Delta 3.23 ABS# (0-10)
[2021-01-10 01:13] LABS: SARS Covid-2 Antigen Negative (Negative)
[2021-01-10] MEDS: fentaNYL 50 mcg/mL INJ 2mL IVP (03:42)
[2021-01-10] MEDS: ondansetron 2 mg/ML SDV 2 mL 4 MG IVP (03:42)
[2021-01-10 05:16] VITALS: BP 118/78; PULSE 78; RESP 22; O2SAT 93
== END 2021-01-10 05:15 | disposition short-term general hospital (02) ==
PROVIDERS: Emergency Medicine; Emergency Provider Emergency Medicine
DX: A41.9 Sepsis, unspecified organism (principal); G93.9 Disorder of brain, unspecified; Z85.118 Personal history of other malignant neoplasm of bronchus and lung; F17.210 Nicotine dependence, cigarettes, uncomplicated
CPT/HCPCS: 51702; 70450; 71045; 80053; 81001; 83605; 84145; 84484; 85025; 86140; 87040; 87426; 93005; 96365; 96367; 96375; 99285; J2405; J2543; J3010; J3370; J7040

== ENCOUNTER 2021-02-25 09:15 | Outpatient (CLI) | payer MEDICARE, MEDICAID, SELFPAY ==
--- NOTE | 2021-02-27 09:39 | ONC FU_ITS ---
Dr. Almeida Patient Follow-Up Note Patient: Iram Denis Unit #: [id number]: 1955 Dicatated By: Jeff Almeida M.D.Date of Visit:Feb 25, 2021 Onc Med Follow-up/Prog Note Chief Complaint: Lung cancer. 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 She has had subsequent progression to stage IVB with development of malignant pleural effusion and evidence of a left temporal/parietal lobe brain metastasis. She had presented with hemoptysis in association with worsening shortness of breath and cough. Her chest x-ray on 01/30/2020 showed a 10 cm right hilar/suprahilar mass extending into the right upper lobe consistent with a primary lung malignancy. This was noted to probably invade the mediastinum. Chest CT on 02/04/2020 showed large right hilar and suprahilar mass measuring 11.9 x 6.1 x 7.1 cm. There was slight narrowing of the distal main pulmonary artery and there was narrowing of the adjacent segmental and subsegmental right upper lobe pulmonary branches. There was encasement of the right mainstem bronchus with associated narrowing. There was invasion into the mediastinum and adjacent mediastinal fat, and there was mild narrowing of the distal trachea. There was narrowing with encasement of the right superior vena cava which appeared partially thrombosed. There was evidence of tumor thrombus in the mid segment of the SVC measuring approximately 4.1 cm. There was conglomerate right hilar lymphadenopathy. Interstitial infiltrates throughout the right lung appeared suspicious for lymphangitic metastases. On 02/08/2020 she underwent bronchoscopy/EBUS with endobronchial biopsy from the right upper lobe and with FNA biopsy of station 4R lymph node. Pathology on the station 4R lymph node biopsy was consistent with metastatic adenocarcinoma, favoring lung primary. The tumor cells were TTF-1 positive. On next generation sequencing, there were no actionable mutations identified. The tumor was noted to be MSI stable and it was negative for PD-L1 expression. The tumor mutational burden was high at 12 mut/Mb. PET/CT on 02/09/2020 showed FDG avid right upper lobe mass measuring 12.1 x 5.6 cm. There was mild activity in a 1.5 cm subcarinal lymph node, consistent with metastatic disease. Postobstructive atelectasis with right upper and middle lobe interstitial thickening was suspicious for carcinomatosis. I had seen her initially on 02/20/2020. As her disease appeared to be localized by clinical evaluation, she was recommended to undergo radiation concurrently with weekly carboplatin/paclitaxel chemotherapy. As she had symptoms of impending superior vena cava obstruction and she had poor peripheral venous access, she received several fractions of radiation prior to her week 1 chemotherapy infusion which was administered on 03/12/2020. With that treatment she was able to complete the full dose of paclitaxel, but the carboplatin was interrupted due to development of acute shortness of breath and pulmonary congestion. An infusion reaction was suspected, but given her underlying lung disease and locally advanced malignancy, I was not certain of that. In any case, with additional steroid and pulmonary nebulizers her symptoms improved, and she was able to continue her radiation. On 03/19/2020 she she continued with her week 2 chemotherapy, limited to paclitaxel alone. She tolerated it well. At that point she was showing significant clinical improvement, and she also appeared to be showing significant response by follow-up CT imaging. With her week 3 chemotherapy on 03/27/2020, she restarted paclitaxel in combination with carboplatin, and she tolerated it well. She continued with week 4 treatment on 04/07/2020. On 04/18/2020 she was admitted to the hospital after presenting to the emergency room with fever and shortness of breath. She was just mildly neutropenic. CT pulmonary angiogram showed no evidence of pulmonary embolism. She was noted to have a large right upper lobe mass extending along the mediastinal border with encasement of the pulmonary artery branches to the right middle lobe. The mass was noted to involve the lower superior vena cava and right superior pulmonary vein, but it was noted to be significantly smaller compared to the previous study with much less involvement of the superior vena cava and of the pulmonary vein. She continued anticoagulation with apixaban. Following discharge from the hospital she was able to continue with her radiation. She completed treatment on 04/29/2020 to a total dose of 6000 cGy administered in 30 fractions. With the improvement on her restaging CT scans, she was felt to be eligible to begin maintenance immunotherapy with durvalumab. However, at that point she was feeling terrible, and her further treatment was deferred. On 09/07/2020 she was seen in the emergency room with nausea/vomiting and dizziness. CT angiogram of the head/neck showed no evidence of carotid or vertebral artery stenosis. Her CT pulmonary angiogram showed a mild decrease in the right suprahilar mass measuring 4.4 x 3.5 cm compared to 4.9 x 4.1 cm on the prior study from April. There was narrowing of the airway to the right upper lobe and narrowing of the airways to the right middle lobe and lower lobes similar to the previous study. There was new bilateral patchy and reticular airspace opacities located immediately in both lungs, right greater than left, suggestive of postradiation changes. Other considerations included postobstructive pneumonitis and lepidic spread of disease. There was interval increase in the size of a small right pleural effusion. With those findings she was referred back to Dr. Meadows for further management. A repeat chest CT on 11/05/2020 showed improved right-sided pleural effusion with little change in the size of the right hilar mass. There was persistent encasement of the right upper lobe bronchus and distal right mainstem bronchus and there were diffuse infiltrates noted in the right upper lobe. There was no obvious mediastinal lymphadenopathy. She was seen by Dr. Meadows again on 12/19/2020. At that time she was having increased shortness of breath and her chest x-ray showed a large right pleural effusion. She underwent thoracentesis on 12/23/2020. The pleural fluid cytology did come back positive. Her repeat chest CT on 01/06/2021 showed recurrence of moderate to large right pleural effusion, and with that finding she was seen the following day by Dr. Meadows for placement of right-sided Pleurx catheter. Her other medical illnesses include hypertension and COPD. She also has had atrial fibrillation. She has a remote history of cervical cancer. She also has history of migraine headaches, and she has anxiety/depression. She has a history of smoking 1 pack of cigarettes daily for 40 years, which she has cut down. INTERIM HISTORY: On 01/09/2021 she presented to the emergency room with increased weakness and shortness of breath. Her head CT showed a mass in the periphery of the left temporal/parietal lobe with abundant adjacent vasogenic edema, consistent with metastasis. With that finding, she was transferred to [facility] for admission. Her head MRI there showed a 2 cm enhancing mass with a large amount of surrounding edema within the left temporal lobe laterally. There were no other mass lesions identified. A 1.1 cm lesion in the right frontal calvarium was favored to be a benign hemangioma, but metastatic lesion was not completely excluded. According to the [facility] records, she declined surgical intervention for the brain metastasis, and she was then discharged home on hospice. She had a follow-up visit with Dr. Meadows on 02/19/2021. At that point she was feeling somewhat better, and she indicated she was interested in pursuing treatment for her lung cancer. As such, she opted to revoke her hospice benefit, and she is seen now to discuss further management. She has continued steroid therapy with dexamethasone 4 mg daily. She is still pretty weak generally, though she is able to ambulate short distances. She does a little bit of very light housework. ECOG score is 3. She has good appetite. She has not had fever. She does have some night sweating. She complains that her nose gets stopped up with the oxygen. She has not had sore mouth or throat. She says her breathing is better now than it was, though she still is on the oxygen continuously. She has just occasional cough. She does not complain of chest pain. She was having nausea, but not recently. Bowel and bladder function have been okay. She has some pain on the right side of her chest and she has having some pain in her left hip and knee. She tends to walk with a limp. She does not complain of headache. She does have problems with equilibrium. She has no numbness/paresthesia or other focal neurologic symptoms. Medications: Amiodarone HCl 1 Tablet (of 200 mg) Oral b.i.d., Ipratropium-Albuterol 3 mL (of 0.5-2.5 (3) mg/3mL) Solution Inhalation four times a day PRN, KlonoPIN 1 Tablet (of 0.5 mg) Oral daily, LORazepam Tablet Oral, oxyCODONE HCl 1 - 2 Tablet (of 5 mg) Tablet Oral q 4 hours, Saline Nasal [place] 1 (0.65 %) Solution Nasal daily, Xarelto 1 Tablet (of 15 mg) Oral daily, Zoloft 1 Tablet (of 50 mg) Oral daily Allergies: No Known Allergies. Vital Signs: Performed on Feb 25, 2021 14:46 Height - 66.00 in Temperature - 98.4 F Pulse - 86 /min Respiration - 20 /min BP - 149/84 mm(hg) (HIGH) O2 Sat - 93 % (LOW) Pain - 10 Fatigue - 5 Physical Examination: Constitutional - She appears generally weak, Eyes - Sclerae nonicteric. Conjunctivae clear, ENMT - No lesions noted in the oral cavity, Hematologic/Lymphatic - No cervical, clavicular, or axillary adenopathy, Respiratory - Lungs sound clear with diminished air movement bilaterally, worse on the right, Cardiovascular - Heart rhythm is regular. There is no murmur, gallop, or rub noted, Abdomen - Soft. Liver and spleen are not enlarged. There is no abdominal mass or ascites noted and there is no inguinal adenopathy, Extremities - No edema, Neurologic - She does not appear to have any focal neurologic deficit. Problem List: 1. Adenocarcinoma involving the upper lobe of the right lung, by clinical evaluation stage at least IIIB (T4, N2, M0). 2. She underwent bronchoscopy/EBUS with right upper lobe endobronchial biopsy and with FNA biopsy of station 4R lymph node on 02/08/2020. 3. Hypertension. 4. COPD. 5. Atrial fibrillation. 6. She has history of migraine headaches. 7. She has remote history of cervical cancer, treated with cone biopsy. 8. Anxiety/depression. 9. Nicotine dependence. Problems Addressed with this Encounter and Plan: Patient with adenocarcinoma involving the upper lobe of the right lung, by clinical evaluation stage at least IIIB (T4, N2, M0). She has undergone ongoing radiation concurrently with weekly carboplatin/paclitaxel chemotherapy. Her chemotherapy was complicated by suspected infusion reaction with her initial dose of carboplatin. The carboplatin was held at week 2, but reinstituted with her weeks 3 and 4 treatments. She had significant clinical improvement during her chemoradiation. However, on 04/17/2019 she required admission to the hospital for shortness of breath/hypoxia and fever. Her repeat CT scans had shown significant improvement in the right upper lobe lung cancer compared to the March 2020 CT. In particular, there was much less involvement of the superior vena cava and of the pulmonary vein. She initially improved on empiric antibiotic therapy. However, she then continued to have intermittent fever, and she had significant decline in her performance status. Due to her ongoing symptoms and overall poor clinical status, I did not attempt to start maintenance immunotherapy. She had continued follow-up with Dr. Meadows. As of her visit with him on 12/19/2020, she reported increased shortness of breath and she was noted to have increased right pleural effusion. She had symptomatic improvement following thoracentesis on 12/23/2020, but the benefit was temporary. Her pleural fluid cytology did come back positive, consistent with progression of the lung cancer. She subsequently required placement of a Pleurx catheter in the right chest. On 01/10/2020 when she presented to the emergency room with weakness and shortness of breath. She was found to have evidence of a left temporal brain metastasis, for which she underwent further evaluation at [facility]. She declined surgical intervention. She had been discharged home on hospice. During subsequent follow-up, she was feeling better, and she opted to revoke her hospice benefit and to seek further treatment for the lung cancer, which is now stage IVB. Her options for further systemic therapy are somewhat limited, as her next generation sequencing showed no actionable mutations. Based on her tumor showing high mutational burden at 12 mut/Mb, she could potentially benefit with immunotherapy. Prior to initiating any systemic therapy, though, she does need to have the brain metastasis treated, and to that end I will arrange for radiation oncology consultation with Dr. Yanes today. I will plan to see her again when that treatment is completed. In the meantime, she continues management of the Pleurx catheter with home health, and she will continue steroid coverage with dexamethasone 4 mg daily. Signed By: Jeff Almeida M.D. <<Signature on File>>
== END 2021-02-25 09:16 | disposition home or self-care (01) ==
LOC: ONCMED 09:16
PROVIDERS: PCP Internal Medicine; Visit Provider Internal Medicine Medical Oncology
DX: C34.11 Malignant neoplasm of upper lobe, right bronchus or lung (principal); I10 Essential (primary) hypertension; J44.9 Chronic obstructive pulmonary disease, unspecified; I48.91 Unspecified atrial fibrillation; G43.919 Migraine, unspecified, intractable, without status migrainosus; F41.9 Anxiety disorder, unspecified; F32.9 Major depressive disorder, single episode, unspecified; F17.210 Nicotine dependence, cigarettes, uncomplicated; Z85.41 Personal history of malignant neoplasm of cervix uteri; Z79.899 Other long term (current) drug therapy; Z79.52 Long term (current) use of systemic steroids; Z92.21 Personal history of antineoplastic chemotherapy
CPT/HCPCS: 99215

== ENCOUNTER 2021-03-02 10:49 | Outpatient (CLI) | payer MEDICARE, MEDICAID, SELFPAY | END 2021-03-02 10:50 | disposition home or self-care (01) | PROVIDERS: PCP Internal Medicine; Visit Provider Internal Medicine Critical Care Medicine | DX: T85.79XA Infection and inflammatory reaction due to other internal prosthetic devices, implants and grafts, initial encounter (principal) | CPT/HCPCS: 87070; 87075; 87077; 87186; 87205 ==

== ENCOUNTER 2021-03-10 13:37 | Outpatient (RCR) | payer MEDICARE, MEDICAID, SELFPAY ==
--- NOTE | 2021-03-09 | CT_ITS ---
Radiation Therapy Planning CT images; total exam DLP: 307.78 mGy-cm MTDD
--- NOTE | 2021-03-11 14:37 | ONCRAD TMN_ITS ---
Radiation Oncology Treatment Management Note Patient Name: Iram Denis Date of : 1955 Date of Service: 03/10/2021 Attending Physician: Alf Yanes M.D. Iram Denis is a 66 year old white female diagnosed with adenocarcinoma of the right upper lobe of the lung in January 2020 - clinical stage IIIB (T4N2) lung cancer. Definitive chemoradiation was delivered between the dates of March 04, 2020 through April 29, 2020. A prescribed dose of 60 Gy was delivered in 30 fractions. She was prescribed weekly carboplatin (AUC 2) and paclitaxel (50 mg/m???) during radiotherapy (March 12, 2020 through April 07, 2020). She was evaluated at the [facility] Department for aphasia and weakness in January. A CT of the head demonstrated a left tempoparietal lobe mass. She was transferred to [facility] in [place], [place] for neurosurgical evaluation. An MRI of the brain confirmed a 2 cm enhancing mass within the left temporal lobe associated with surrounding edema (4-5 mm left to right midline shift). She refused surgical management. The patient has received 3 Gy of a prescribed 30 Springer with a 3-dimensional conformal radiotherapy plan utilizing a half beam block treatment technique with opposed lateral portal griffiths. Upon review of systems, she denied neurological symptoms. On physical examination, the patient weighed 145 lbs. Her temperature was 98.8 ???F with a blood pressure of 110/68 mmHg. Her pulse was 89 bpm and the respiratory rate was 20. Cranial nerves were intact. Continue whole brain radiotherapy as planned. Signed by: Dr. Alf Yanes 03/17/2021 1:55:25 PM
== END 2021-03-10 23:59 | disposition home or self-care (01) ==
LOC: ONCMED 13:37
PROVIDERS: PCP Internal Medicine; Visit Provider Radiology Radiation Oncology
DX: Z51.0 Encounter for antineoplastic radiation therapy (principal); C34.11 Malignant neoplasm of upper lobe, right bronchus or lung; C79.31 Secondary malignant neoplasm of brain; D50.9 Iron deficiency anemia, unspecified; Z79.899 Other long term (current) drug therapy
CPT/HCPCS: 77280; 77290; 77295; 77300; 77334; 77412

== ENCOUNTER 2021-03-10 15:01 | Outpatient (RCR) | payer MEDICARE, MEDICAID, SELFPAY ==
--- NOTE | 2021-03-04 13:15 | PC.NURSE ---
Pt to GI lab to have Lup[place] drain emptied. Pt states her son and daughter have been draining [place] drain at home, but since Hospice was discontinued, she does not have any kits to empty drain. Home Health to be established on Tuesday. Drain to be emptied by OPS over the holiday weekend. [place] drain accessed using sterile technique. Approx 350 dark edel drainage returned. Pt tolerated well.
[2021-03-04 13:21] VITALS: BMI 23.0
[2021-03-04 13:34] VITALS: BP 127/68; PULSE 95; RESP 18; TEMP 36.6; O2SAT 94
--- NOTE | 2021-03-06 13:18 | PC.NURSE ---
called patient and talked to her son. He stated she is not feeling well and would not be at her appt today for pleurx drain. Informed him of next appt sor tuesdaymar 08.
--- NOTE | 2021-03-08 13:46 | PC.NURSE ---
Patient was a no show for draining of pleruex drain today. Finally got a hold of daughter and she was to find out if patient would be attending appt . I waited for 1 hour and heard nothing from anyone.
[2021-03-10 16:03] VITALS: BP 138/104; PULSE 82; RESP 20; TEMP 35.8; O2SAT 99
== END 2021-03-10 23:59 | disposition home or self-care (01) ==
LOC: GILAB 15:01
PROVIDERS: PCP Internal Medicine; Visit Provider Internal Medicine Critical Care Medicine
DX: Z48.03 Encounter for change or removal of drains (principal); C34.90 Malignant neoplasm of unspecified part of unspecified bronchus or lung

== ENCOUNTER 2021-03-24 06:20 | Outpatient (RCR) | payer MEDICARE, MEDICAID, SELFPAY ==
--- NOTE | 2021-03-17 14:10 | ONCRAD TMN_ITS ---
Radiation Oncology Treatment Management Note Patient Name: Iram Denis Date of : 1955 Date of Service: 03/17/2021 Attending Physician: Alf Yanes M.D. Iram Denis is a 66 year old white female diagnosed with adenocarcinoma of the right upper lobe of the lung in January 2020 - clinical stage IIIB (T4N2) lung cancer. Definitive chemoradiation was delivered between the dates of March 04, 2020 through April 29, 2020. A prescribed dose of 60 Gy was delivered in 30 fractions. She was prescribed weekly carboplatin (AUC 2) and paclitaxel (50 mg/m???) during radiotherapy (March 12, 2020 through April 07, 2020). She was evaluated at the [facility] Emergency Department for aphasia and weakness in January. A CT of the head demonstrated a left tempoparietal lobe mass. She was transferred to [facility] in [place], [place] for neurosurgical evaluation. An MRI of the brain confirmed a 2 cm enhancing mass within the left temporal lobe associated with surrounding edema (4-5 mm left to right midline shift). She refused surgical management. The patient has received 18 Gy of a prescribed 30 Springer with a 3-dimensional conformal radiotherapy plan utilizing a half beam block treatment technique with opposed lateral portal griffiths. Upon review of systems, she denied neurological symptoms. On physical examination, the patient weighed 134 lbs. Her temperature was 97.9 ???F with a blood pressure of 130/73 mmHg. Her pulse was 93 bpm and the respiratory rate was 20. No thrush was present. Continue whole brain radiotherapy as prescribed. Signed by: Dr. Alf Yanes 03/17/2021 2:08:58 PM
--- NOTE | 2021-03-23 13:07 | N.ONRD TS_ITS ---
Radiation OncologyTreatment Summary Patient Name: Iram Denis Date of : 1955 Date of Service: 03/23/2021 Attending Physician: Alf Yanes M.D. Iram Denis has completed cranial radiotherapy for the management of a metastatic adenocarcinoma of the right upper lobe of the lung diagnosed in January 2020 - clinical stage IIIB (T4N2). Definitive chemoradiation was delivered between the dates of March 04, 2020 through April 29, 2020. A prescribed dose of 60 Gy was delivered in 30 fractions. She was prescribed weekly carboplatin (AUC 2) and paclitaxel (50 mg/m???) during radiotherapy (March 12, 2020 through April 07, 2020). She was evaluated at the [facility] Emergency Department for aphasia and weakness in January. A CT of the head demonstrated a left tempoparietal lobe mass. She was transferred to [facility] in [place], [place] for neurosurgical evaluation. An MRI of the brain confirmed a 2 cm enhancing mass within the left temporal lobe associated with surrounding edema (4-5 mm left to right midline shift). She refused surgical management. Daily radiotherapy was administered between the dates March 10, 2021 through March 23, 2021. A prescribed dose of 30 Gy was delivered in 10 fractions encompassing 14 elapsed days. The cranial fossa was treated utilizing a 3-dimensional conformal radiotherapy plan with an opposed lateral portal field design with a half-beam treatment technique. The right lateral field utilized a 270??? gantry angle with a collimator angle of 322???. The field size measured 17 cm x 0 cm within the X-direction and 11 cm x 11 cm within the Y-direction. The SSD measured 92.8 cm with the port delivering 161 monitor units. The left lateral port employed a gantry angle of 90??? and a collimator angle of 38???. The field size measured 17 cm x 0 cm within X-direction and 11 cm x 11 cm within the Y-direction. The measured SSD was 92.8 cm with the field allocating 163 monitor units. All treatments were performed with the [employer] linear accelerator and an isocentric technique. The dose was calculated by Anisotropic Analytic Algorithm. Photon energies of 15 MV were prescribed with the plan normalized to deliver 100% of the prescription dose to 99.9% of the planning target volume. Signed by: Dr. Alf Yanes 03/23/2021 1:06:25 PM
--- NOTE | 2021-03-28 08:33 | ONC FU_ITS ---
Dr. Almeida Patient Follow-Up Note Patient: Iram Denis < Unit #: [id number]: 1955 Dicatated By: Jeff Almeida M.D.Date of Visit:Mar 24, 2021 Onc Med Follow-up/Prog Note Chief Complaint: Lung cancer. 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 She has had subsequent progression to stage IVB with development of malignant pleural effusion and evidence of a left temporal/parietal lobe brain metastasis. She had presented with hemoptysis in association with worsening shortness of breath and cough. Her chest x-ray on 01/30/2020 showed a 10 cm right hilar/suprahilar mass extending into the right upper lobe consistent with a primary lung malignancy. This was noted to probably invade the mediastinum. Chest CT on 02/04/2020 showed large right hilar and suprahilar mass measuring 11.9 x 6.1 x 7.1 cm. There was slight narrowing of the distal main pulmonary artery and there was narrowing of the adjacent segmental and subsegmental right upper lobe pulmonary branches. There was encasement of the right mainstem bronchus with associated narrowing. There was invasion into the mediastinum and adjacent mediastinal fat, and there was mild narrowing of the distal trachea. There was narrowing with encasement of the right superior vena cava which appeared partially thrombosed. There was evidence of tumor thrombus in the mid segment of the SVC measuring approximately 4.1 cm. There was conglomerate right hilar lymphadenopathy. Interstitial infiltrates throughout the right lung appeared suspicious for lymphangitic metastases. On 02/08/2020 she underwent bronchoscopy/EBUS with endobronchial biopsy from the right upper lobe and with FNA biopsy of station 4R lymph node. Pathology on the station 4R lymph node biopsy was consistent with metastatic adenocarcinoma, favoring lung primary. The tumor cells were TTF-1 positive. On next generation sequencing, there were no actionable mutations identified. The tumor was noted to be MSI stable and it was negative for PD-L1 expression. The tumor mutational burden was high at 12 mut/Mb. PET/CT on 02/09/2020 showed FDG avid right upper lobe mass measuring 12.1 x 5.6 cm. There was mild activity in a 1.5 cm subcarinal lymph node, consistent with metastatic disease. Postobstructive atelectasis with right upper and middle lobe interstitial thickening was suspicious for carcinomatosis. I had seen her initially on 02/20/2020. As her disease appeared to be localized by clinical evaluation, she was recommended to undergo radiation concurrently with weekly carboplatin/paclitaxel chemotherapy. As she had symptoms of impending superior vena cava obstruction and she had poor peripheral venous access, she received several fractions of radiation prior to her week 1 chemotherapy infusion which was administered on 03/12/2020. With that treatment she was able to complete the full dose of paclitaxel, but the carboplatin was interrupted due to development of acute shortness of breath and pulmonary congestion. An infusion reaction was suspected, but given her underlying lung disease and locally advanced malignancy, I was not certain of that. In any case, with additional steroid and pulmonary nebulizers her symptoms improved, and she was able to continue her radiation. On 03/19/2020 she she continued with her week 2 chemotherapy, limited to paclitaxel alone. She tolerated it well. At that point she was showing significant clinical improvement, and she also appeared to be showing significant response by follow-up CT imaging. With her week 3 chemotherapy on 03/27/2020, she restarted paclitaxel in combination with carboplatin, and she tolerated it well. She continued with week 4 treatment on 04/07/2020. On 04/18/2020 she was admitted to the hospital after presenting to the emergency room with fever and shortness of breath. She was just mildly neutropenic. CT pulmonary angiogram showed no evidence of pulmonary embolism. She was noted to have a large right upper lobe mass extending along the mediastinal border with encasement of the pulmonary artery branches to the right middle lobe. The mass was noted to involve the lower superior vena cava and right superior pulmonary vein, but it was noted to be significantly smaller compared to the previous study with much less involvement of the superior vena cava and of the pulmonary vein. She continued anticoagulation with apixaban. Following discharge from the hospital she was able to continue with her radiation. She completed treatment on 04/29/2020 to a total dose of 6000 cGy administered in 30 fractions. With the improvement on her restaging CT scans, she was felt to be eligible to begin maintenance immunotherapy with durvalumab. However, at that point she was feeling terrible, and her further treatment was deferred. On 09/07/2020 she was seen in the emergency room with nausea/vomiting and dizziness. CT angiogram of the head/neck showed no evidence of carotid or vertebral artery stenosis. Her CT pulmonary angiogram showed a mild decrease in the right suprahilar mass measuring 4.4 x 3.5 cm compared to 4.9 x 4.1 cm on the prior study from April. There was narrowing of the airway to the right upper lobe and narrowing of the airways to the right middle lobe and lower lobes similar to the previous study. There was new bilateral patchy and reticular airspace opacities located immediately in both lungs, right greater than left, suggestive of postradiation changes. Other considerations included postobstructive pneumonitis and lepidic spread of disease. There was interval increase in the size of a small right pleural effusion. With those findings she was referred back to Dr. Meadows for further management. A repeat chest CT on 11/05/2020 showed improved right-sided pleural effusion with little change in the size of the right hilar mass. There was persistent encasement of the right upper lobe bronchus and distal right mainstem bronchus and there were diffuse infiltrates noted in the right upper lobe. There was no obvious mediastinal lymphadenopathy. She was seen by Dr. Meadows again on 12/19/2020. At that time she was having increased shortness of breath and her chest x-ray showed a large right pleural effusion. She underwent thoracentesis on 12/23/2020. The pleural fluid cytology did come back positive. Her repeat chest CT on 01/06/2021 showed recurrence of moderate to large right pleural effusion, and with that finding she was seen the following day by Dr. Meadows for placement of right-sided Pleurx catheter. Her other medical illnesses include hypertension and COPD. She also has had atrial fibrillation. She has a remote history of cervical cancer. She also has history of migraine headaches, and she has anxiety/depression. She has a history of smoking 1 pack of cigarettes daily for 40 years, which she has cut down. INTERIM HISTORY: On 01/09/2021 she presented to the emergency room with increased weakness and shortness of breath. Her head CT showed a mass in the periphery of the left temporal/parietal lobe with abundant adjacent vasogenic edema, consistent with metastasis. With that finding, she was transferred to [facility] for admission. Her head MRI there showed a 2 cm enhancing mass with a large amount of surrounding edema within the left temporal lobe laterally. There were no other mass lesions identified. A 1.1 cm lesion in the right frontal calvarium was favored to be a benign hemangioma, but metastatic lesion was not completely excluded. According to the [facility] records, she declined surgical intervention for the brain metastasis, and she was then discharged home on hospice. She had a follow-up visit with Dr. Meadows on 02/19/2021. At that point she was feeling somewhat better, and she indicated she was interested in pursuing treatment for her lung cancer. She then revoked her hospice benefit, and she was seen for followup here on 02/25/2021. Following discussion with Dr. Yanes, she opted to proceed with palliative whole brain radiation. She completed treatment on 03/23/2021 to a total dose of 3000 cGy administered in 10 fractions. She tolerated it well. She is seen for a follow-up visit. She remains on steroid therapy with dexamethasone 4 mg daily. She complains that she is very tired, and she still has limited activity. ECOG score is 3. She has good appetite. She has no fever or night sweats. She has not had sore mouth or throat. She says her breathing has been okay with oxygen and breathing treatments. She has just occasional cough. She does not complain of chest pain. She has no GI or complaints. She has no significant joint or bone pain. She is having some pain at the site of her Pleurx catheter in the right chest. It is being drained in GI Lab weekly with output of 600 to 650 mL. She currently is not having headache or dizziness, and she has no focal neurologic symptoms. Medications: Amiodarone HCl 1 Tablet (of 200 mg) Oral b.i.d., Dexamethasone 1 (4 mg) Tablet Oral daily, Ipratropium-Albuterol 3 mL (of 0.5-2.5 (3) mg/3mL) Solution Inhalation four times a day PRN, KlonoPIN 1 Tablet (of 0.5 mg) Oral daily, LORazepam Tablet Oral, oxyCODONE HCl 1 - 2 Tablet (of 5 mg) Tablet Oral q 4 hours, Saline Nasal [place] 1 (0.65 %) Solution Nasal daily, Xarelto 1 Tablet (of 15 mg) Oral daily, Zoloft 1 Tablet (of 50 mg) Oral daily Allergies: No Known Allergies. Vital Signs: Performed on Mar 24, 2021 09:39 Height - 66.00 in Weight - 136.2 lbs (HIGH) BSA - 1.70 sq.m BMI - 21.98 Temperature - 99.0 F (HIGH) Pulse - 96 /min Respiration - 20 /min BP - 130/79 mm(hg) O2 Sat - 96 % Pain - 9 Fatigue - 8 Physical Examination: Constitutional - She appears generally weak. She is mildly cushingoid, Eyes - Sclerae nonicteric. Conjunctivae clear, ENMT - No lesions noted in the oral cavity, Hematologic/Lymphatic - No cervical, clavicular, or axillary adenopathy, Respiratory - Lungs sound clear with diminished air movement bilaterally, worse on the right, Cardiovascular - Heart rhythm is regular. There is no murmur, gallop, or rub noted, Abdomen - Soft. Liver and spleen are not enlarged. There is no abdominal mass or ascites noted and there is no inguinal adenopathy, Extremities - No edema, Neurologic - She does not appear to have any focal neurologic deficit. Lab/Imaging: Test performed on Jan 01, 2021 09:31 Sodium 136 mmol/L Potassium 4.2 mmol/L Chloride 99 mmol/L CO2 29 mmol/L Anion Gap 12.2 BUN 18 mg/dL Creatinine 0.7 mg/dL Cr Clearance (Est) 72.4600 mL/min eGFR 83.7 mL/min Glucose 100 mg/dL Osmolality - Calculated 284 mOsm/kg Calcium 9.4 mg/dL Protein, Total 6.7 g/dL Albumin 3.7 g/dL Globulin 3.0 g/dL Bilirubin, Total 0.3 mg/dL ALT (SGPT) 80 U/L AST (SGOT) 41 U/L Alkaline Phosphatase 190 IU/L WBC 8.1 10 3/uL RBC 5.01 10 6/uL HGB 13.3 g/dL HCT 43.1 % MCV 86.0 fl MCH 26.5 pg MCHC 30.9 g/dL RDW 16.8 % Platelet Count 386 10 3/cmm MPV 8.8 fL Neutrophils 6.45 10 3/uL Lymphocytes 0.7 10 3/uL Monocytes 0.8 10 3/uL Eosinophils 0.1 10 3/uL Basophils 0.1 10 3/uL Neutrophil % 79.6 % Lymphocyte % 8.4 % Monocyte % 9.6 % Eosinophil % 1.1 % Basophils % 0.7 % NRBC % 0 % Problem List: 1. Adenocarcinoma involving the upper lobe of the right lung, by clinical evaluation stage at least IIIB (T4, N2, M0) at initial diagnosis in January 2020, but with subsequent progression to stage IV (M1c). 2. Hypertension. 3. COPD. 4. Atrial fibrillation. 5. She has history of migraine headaches. 6. She has remote history of cervical cancer, treated with cone biopsy. 7. Anxiety/depression. Problems Addressed with this Encounter and Plan: Patient with adenocarcinoma involving the upper lobe of the right lung, by clinical evaluation stage at least IIIB (T4, N2, M0) at initial diagnosis in January 2020, but with subsequent progression to stage IV (M1c). She underwent bronchoscopy/EBUS with right upper lobe endobronchial biopsy and with FNA biopsy of station 4R lymph node on 02/08/2020. She initially began on treatment with radiation concurrently with weekly carboplatin/paclitaxel chemotherapy. Her chemotherapy was complicated by suspected infusion reaction with her initial dose of carboplatin. The carboplatin was held at week 2, but reinstituted with her weeks 3 and 4 treatments. She had significant clinical improvement during her chemoradiation. However, on 04/17/2019 she required admission to the hospital for shortness of breath/hypoxia and fever. Her repeat CT scans had shown significant improvement in the right upper lobe lung cancer compared to the March [address] CT. In particular, there was much less involvement of the superior vena cava and of the pulmonary vein. She completed radiation on 04/29/2020 to a total dose of 6000 cGy administered in 30 fractions. Due to her ongoing symptoms and overall poor clinical status, I did not attempt to start maintenance immunotherapy. She had continued follow-up with Dr. Meadows. As of her visit with him on 12/19/2020, she reported increased shortness of breath and she was noted to have increased right pleural effusion. She had symptomatic improvement following thoracentesis on 12/23/2020, but the benefit was temporary. Her pleural fluid cytology did come back positive, consistent with progression of the lung cancer. She subsequently required placement of a Pleurx catheter in the right chest. On 01/09/2021 she presented to the emergency room with weakness and shortness of breath. She was found to have evidence of a left temporal brain metastasis, for which she underwent further evaluation at [facility]. She declined surgical intervention. She was then discharged home on hospice. During subsequent follow-up, she was feeling better, and she revoked her hospice benefit in order to seek further treatment for the lung cancer. She was seen for follow-up here on 02/25/2021. She then opted to proceed with whole brain radiation. She completed treatment on 03/23/2021 to a total dose of 3000 cGy, ministered in 10 fractions. She tolerated it well. At this point she continues to have fairly marginal performance status, but she is stable clinically. She desires to continue further treatment for the lung cancer. As her next generation sequencing had shown no targetable mutations, she will be given the option now to have a trial of immunotherapy, either with pembrolizumab as monotherapy or with the nivolumab/ipilimumab combination therapy, the latter being a category 2a recommendation in NCCN with a PD-L1 negative tumor. In the meantime, I will have her reduce dexamethasone to 2 mg daily. Signed By: Jeff Almeida M.D. <<Signature on File>>
== END 2021-04-10 23:59 | disposition home or self-care (01) ==
LOC: ONCMED 06:20
PROVIDERS: PCP Internal Medicine; Visit Provider Internal Medicine Medical Oncology
DX: Z51.0 Encounter for antineoplastic radiation therapy (principal); C34.11 Malignant neoplasm of upper lobe, right bronchus or lung; I10 Essential (primary) hypertension; J44.9 Chronic obstructive pulmonary disease, unspecified; I48.91 Unspecified atrial fibrillation; F41.9 Anxiety disorder, unspecified; F32.9 Major depressive disorder, single episode, unspecified; Z86.69 Personal history of other diseases of the nervous system and sense organs; Z85.41 Personal history of malignant neoplasm of cervix uteri; Z92.21 Personal history of antineoplastic chemotherapy; Z79.52 Long term (current) use of systemic steroids
CPT/HCPCS: 77336; 77412; 77417; 99214

== ENCOUNTER 2021-03-31 14:09 | Emergency (ER) | payer MEDICARE, MEDICAID, SELFPAY ==
[2021-03-31 14:18] VITALS: BP 159/95; PULSE 92; RESP 20; TEMP 36.6; O2SAT 99; BMI 21.6
--- NOTE | 2021-03-31 14:44 | XR_ITS ---
WS: [id number] Exam: XR chest 1V portable [id number] Date/Time of Exam: 03/31/2021 2:44 PM Reason For Exam: dyspnea Comparison 01/12/2021. Almost complete consolidation of the right lung. Chronically elevated right diaphragm. The left lung is clear and fully expanded. The heart is not enlarged. The mediastinum is not widened. Rightward tra cheal shift probably due to right-sided volume loss. Probable right-sided pleural effusion. Bony stru ctures appear to be intact. XR/XR chest 1V portable [id number] IMPRESSION: 1. Almost complete consolidation of the right lung which has been noted previou sly. There is also a probable large right pleural effusion. 2. Chronically elevated right diaphragm. 3. The left lung is clear and well ventilated.
[2021-03-31 14:51] LABS: Basophils % 0.2 %; Eosinophils % 0.1 %; Hematocrit 39.7 % (37.0-47.0); Hemoglobin 12.9 g/dL (11.5-15.3); Lymphocytes # 0.2 10^3/uL (0.8-4.8); Lymphocytes % 1.5 %; Mean Corpuscular HGB Conc 32.5 g/dL (30.0-36.0); Mean Corpuscular Hemoglobin 27.9 pg (28.0-34.0); Mean Corpuscular Volume 85.9 fl (81-99); Mean Platelet Volume 8.8 fL (7.4-10.4); Monocytes # 0.6 10^3/uL (0.2-0.9); Monocytes % 5.1 %; Neutrophils # 9.59 10^3/uL (1.8-7.7); Neutrophils % 88.9 %; Nucleated Red Blood Cells % 0 %; Platelet Count 176 10^3/cmm (130-400); Red Blood Count 4.62 10^6/uL (4.1-5.3); Red Cell Distribution Width 19.7 % (12.1-15.1); White Blood Count 10.8 10^3/uL (4.0-10.0)
--- NOTE | 2021-03-31 14:51 | ED_ITS ---
HPI - General Adult General: Chief complaint: Shortness of Breath/Dyspnea Stated complaint: RESP DISTRESS, LUNG CA Time Seen by Provider: 03/31/21 14:13 History of Present Illness: HPI narrative: Patient is a 66-year-old female with a history of lung CA not currently on any chemotherapy requiring 5 to 6 L of NC at home presents emergency room acute onset of dyspnea x2 days. Patient says that since yesterday afternoon, she has been feeling increasingly more short of breath. Of note, patient recently had a pleurx drain removed yesterday on 03/29/2021 given concern for infection. Patient was supposed to follow up with Dr. Orr in 2-3 days for exchange new Pleurx catheter. Denies fever/chill, nausea/vomiting, Onset:2 days ago Duration:ongoing Location:home Severity:moderate Review of Systems Narrative: Constitutional: No fever, no chills. HEENT: No vision changes CV: No chest pain, no palpitations PULM: no cough, +dyspnea. GI: No abdominal pain, no N/V/D. : No dysuria MSKEL: No muscle pain SKIN: No new rashes, no lesions. NEURO: No headache, no focal weakness. 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 Surgical History S/P bronchoscopy Family History Other CAD (coronary artery disease) Cancer Dementia Hypertension Lung disease Stroke Denies family history of Diabetes Hyperlipidemia Chronic kidney disease (CKD) Family history of premature coronary artery disease Social History Quit status (tobacco): has quit using tobacco Year quit tobacco: 2020 Smoking risk assessment/counseling performed?: Yes Tobacco counseling given: counseling >3 minutes Alcohol intake: current Alcohol intake frequency: few times a month Alcohol type: beer Counseling given: No Counseling given: No Lives independently: Yes Household members: family Marital status: Current occupational status: retired History of recent travel: No Current gender identity: Female Physical Exam Narrative: EXAM NARRATIVE: Head: Atraumatic Eyes: PERRL, conjunctiva without injection ENT: Mucous membrane moist NECK: Supple, ROM intact LUNGS: +coarse breath sounds b/l CV: RRR ABDOMEN: Soft, nontender in all quadrants EXTREMITY: Normal ROM SKIN: No rash or erythema NEURO: Awake and alert, no focal motor deficits PSYCH: Normal mood and affect Course Vital Signs: Vital signs: Vital Signs Temperature 97.8 F 03/31/21 14:18 Pulse Rate 88 03/31/21 14:54 Respiratory Rate 16 03/31/21 14:54 Blood Pressure 122/83 03/31/21 14:54 Pulse Oximetry 99 03/31/21 14:54 MDM - General Adult MDM Narrative: Medical decision making narrative: 66-year-old female with history of right-sided carcinoma followed by Dr. Meadows presenting to the emergency room with complaints of dyspnea. On chest x-ray, patient is noted to have right-sided pleural effusion. Patient had a recent catheter removed 3 days ago. Patient has appoint with Dr. Meadows tomorrow morning at 7 AM. Patient not had increased oxygen requirement. X-ray is consistent with large pleural effusion with right-sided cancer. I discussed with the case with Dr. Meadows spoke with patient and family over phone and recommended outpatient thoracentesis tomorrow morning. Patient agrees with plan at this time. WBC of 10.8. Troponin mildly elevated likely demand related secondary to increased intrathoracic pressure. Doubt ACS/PE or other emergent causes of chest pain. No suspicion for aortic dissection given no widened mediastinum, 2+ upper extremity pulses, or tearing pain. No suspicion for PE given no pleuritic chest pain, recent immobilization or surgery hemoptysis, or other VTE risk factors. EKG is non-ischemic. XR normal. Disposition: Discharge. Patient counseled regarding diagnostic impression, treatment plan. Patient given ED strict return precautions to return for continuation, worsening, or development of new symptoms. Instructed to f/u w/ PCP regarding symptoms today. Patient verbalized understanding. Lab Data: Labs: Lab Results 03/31/21 03/31/21 03/31/21 14:35 14:35 14:35 WBC 10.8 10^3/uL H 10 ^3/uL (4.0-10.0) RBC 4.62 10^6/uL 10^6 /uL (4.1-5.3) Hgb 12.9 g/dL g/dL (11.5-15.3) Hct 39.7 % % (37.0-47.0) MCV 85.9 fl fl (81-99) MCH 27.9 pg L pg (28.0-34.0) MCHC 32.5 g/dL g/dL (30.0-36.0) RDW 19.7 % H % (12.1-15.1) Plt Count 176 10^3/cmm 10^3 /cmm (130-400) MPV 8.8 fL fL (7.4-10.4) Neut % (Auto) 88.9 % % Lymph % (Auto) 1.5 % % [place] % (Auto) 5.1 % % Eos % (Auto) 0.1 % % Baso % (Auto) 0.2 % % Neut # (Auto) 9.59 10^3/uL H 10 ^3/uL (1.8-7.7) Lymph # (Auto) 0.2 10^3/uL L 10^ 3/uL (0.8-4.8) [place] # (Auto) 0.6 10^3/uL 10^3/ uL (0.2-0.9) Eos # (Auto) 0.0 10^3/uL 10^3/ uL (0.0-0.8) Baso # (Auto) 0.0 10^3/uL 10^3/ uL (0.0-0.1) Nucleated RBC % (a uto) 0 % % Nucleated RBCs # 0.0 /100WBC /100W BC Sodium 135 mmol/L L mmol /L (136-145) Potassium 4.6 mmol/L mmol/L (3.5-5.1) Chloride 100 mmol/L mmol/L (98-107) Carbon Dioxide 21 mmol/L L mmol/ L (22-29) Anion Gap 18.6 (5-19) BUN 23 mg/dL mg/dL (8-23) Creatinine 0.6 mg/dL mg/dL (0.5-0.9) GFR Calculation 99.7 mL/min mL/mi n (90-130) Glucose 103 mg/dL mg/dL (65-115) Calculated Osmolal ity 284 mOsm/kg L mOs m/kg (285-295) Calcium 7.9 mg/dL L mg/dL (8.5-10.5) Troponin T Baselin e 33 ng/L H ng/L (0-10) NT-Pro-B Natriuret Pep 401 pg/mL H pg/mL (0-125) Imaging Data^: Other Imaging: Radiologist's impression: [address] [id number] ReportSigned Patient: Jacqui Denis #: [id number]: 1955cct#:[id number]/Sex: 66 / FADM Date: 03/31/21Loc: ERRoom/Bed:Attending Dr: Ordering Provider/Ordering MD: Manuel Harvey MD Date of Service: 03/31/21 Procedure(s): XR chest 1V portable [id number] Accession Number(s): [id number] Report Number: [id number] WS: [email or web address] Exam: XR chest 1V portable [id number] Date/Time of Exam: 03/31/2021 2:44 PM Reason For Exam: dyspnea Comparison 01/12/2021. Almost complete consolidation of the right lung. Chronically elevated right diaphragm. The left lung is clear and fully expanded. The heart is not enlarged. The mediastinum is not widened. Rightward tracheal shift probably due to right-sided volume loss. Probable right-sided pleural effusion. Bony structures appear to be intact. XR/XR chest 1V portable [id number] IMPRESSION: 1. Almost complete consolidation of the right lung which has been noted previously. There is also a probable large right pleural effusion. 2. Chronically elevated right diaphragm. 3. The left lung is clear and well ventilated. Dictated By:Mcgeeigned By:Sameer Ibarra Date/Time:03/31/21 1501DD/ 1458 Discharge Plan Discharge Patient Disposition: Home Clinical Impression: Acute dyspnea Condition: Stable Prescriptions: New acetaminophen 500 mg tablet 500 mg PO Q6H PRN (Reason: pain) 5 Days Qty: 20 RF: 0 No Action Trelegy Ellipta 100-62.5-25 mcg blister with device 1 inh inhalation DAILY Qty: 60 RF: 3 lorazepam 2 mg/mL concentrate 0.25 mg PO TID PRN (Reason: Anxiety) RF: 0 ipratropium-albuterol 0.5 mg-3 mg(2.5 mg base)/3 mL solution for nebulization 3 ml INHALATION TID PRN (Reason: Shortness Of Breath) 30 Days Qty: 360 RF: 4 clonazepam 0.5 mg tablet 0.5 mg PO TID PRN (Reason: Anxiety) Qty: 90 RF: 0 hydrocodone-acetaminophen 10-325 mg tablet 1 tab PO Q6H PRN (Reason: Pain) RF: 0 albuterol sulfate [ProAir HFA] 90 mcg/actuation HFA aerosol inhaler 2 puff INHALATION QID PRN (Reason: Shortness Of Breath) RF: 0 oxycodone 5 mg tablet 5 - 10 mg PO Q4H PRN (Reason: Pain) RF: 0 amiodarone 200 mg tablet 200 mg PO BID RF: 0 Xarelto 15 mg tablet 15 mg PO DAILY MDD ON HOLD RF: 0 sulfamethoxazole-trimethoprim 800-160 mg tablet 1 tab PO BID RF: 0 dexamethasone 4 mg tablet 2 mg PO BID RF: 0 lisinopril 10 mg tablet 10 mg PO DAILY RF: 0 Discharge Orders: Discharge ED (Routine); Ordered 03/31/21 Ordered By: Manuel Harvey Referrals: Jayna Schmitt MD [Primary Care Provider] - Discharge Diet: Advance as tolerated Discharge Activity: Resume usual activity Patient Instructions: Dyspnea (ED) Activity Restrictions/Additional Instructions: Please follow up with Dr. Meadows tomorrow morning for your cathether placement at 7am. Coding Level of Care Code ED Manager Material for Barbara Cruz
[2021-03-31 14:54] VITALS: BP 122/83; PULSE 88; RESP 16; O2SAT 99
[2021-03-31 15:08] LABS: Troponin(5th) Baseline 33 ng/L (0-10)
--- NOTE | 2021-03-31 15:12 | PC.NURSE ---
Dr. Meadows called, pt given the phone to talk to.
[2021-03-31 15:13] LABS: Anion Gap 18.6 (5-19); Blood Urea Nitrogen 23 mg/dL (8-23); Calcium 7.9 mg/dL (8.5-10.5); Carbon Dioxide 21 mmol/L (22-29); Chloride 100 mmol/L (98-107); Glomerular Filtration Rate 99.7 mL/min (90-130); Glucose 103 mg/dL (65-115); NT Pro B Type Natriuretic Pept 401 pg/mL (0-125); Osmolality Calculated 284 mOsm/kg (285-295); Potassium 4.6 mmol/L (3.5-5.1); Sodium 135 mmol/L (136-145)
== END 2021-03-31 16:29 | disposition home or self-care (01) ==
PROVIDERS: Emergency Provider Emergency Medicine; PCP Internal Medicine
DX: J90 Pleural effusion, not elsewhere classified (principal); R06.00 Dyspnea, unspecified; C34.91 Malignant neoplasm of unspecified part of right bronchus or lung; Z87.891 Personal history of nicotine dependence; Z79.899 Other long term (current) drug therapy
CPT/HCPCS: 71045; 80048; 83880; 84484; 85025; 99284; 99291

== ENCOUNTER 2021-04-01 05:42 | Day surgery (SDC) | payer MEDICARE, MEDICAID, SELFPAY ==
[2021-03-30 09:35] VITALS: BMI 23.0
[2021-04-01] VITALS (8 sets, daily range): BP systolic 119–158; BP diastolic 60–94; PULSE 81–98; RESP 16–20; TEMP 36.1–36.6; O2SAT 95–100
[2021-04-01] MEDS: sodium chloride 0.9% 1,000 ML 30 ML IV (06:51)
[2021-04-01] MEDS: fentaNYL 50 mcg/mL INJ 2mL 25 MCG IVP (07:11)
[2021-04-01] MEDS: midazolam 1 mg/mL INJ 2 mL IVP (07:11)
[2021-04-01] MEDS: fentaNYL 50 mcg/mL INJ 2mL IVP (07:16)
[2021-04-01] MEDS: midazolam 1 mg/mL INJ 2 mL 2 MG IVP (07:18)
--- NOTE | 2021-04-01 07:42 | W.PM.OPSUD ---
Surgery/Procedure H&P Update DATE OF PROCEDURE: April 01, 2021 DATE H&P PERFORMED: 03/19/21 H&P UPDATE INFORMATION: I have reviewed H&P completed within last 30 days, I have examined patient prior to procedure and No changes to prior documentation PREOP DIAGNOSIS: Malignant pleural effusion PRIMARY INDICATION FOR PROCEDURE: Malignant right-sided pleural effusion PLANNED PROCEDURE: Right-sided Pleurx catheter placement Operation Date: 04/01/Right-sided [id number] 07:00 Proposed Procedures p [place] Drain Placement Pleurx Catheter Insertion(Not Applicable) - Biptsering Meadows MD
--- NOTE | 2021-04-01 07:43 | P.OP_ITS ---
Operative Report Date of procedure: April 01, 2021 Pre-op Diagnosis: Malignant pleural effusion Post-op diagnosis: same Brief History: This is a 66-year-old lady with right-sided malignant pleural effusion coming in for Pleurx catheter placement. Procedure: Name of the procedure: Right-sided Pleurx catheter placement Anesthesia: Moderate sedation, fentanyl 50 mcg, Versed 2 mg IV Local: 1% lidocaine 18 mL. Description of the procedure: The patient was brought to the OR. The patient was placed in left lateral position. Using the ultrasound a safe fluid pocket was identified in the right eighth intercostal space in the midaxillary line. The site was marked. The site was then prepared using sterile technique. 1% lidocaine was used to anesthetize the skin and subcutaneous tissue periosteum and the pleural space was entered. Straw-colored fluid was aspirated. The introducer needle was then introduced into the pleural space. The guide wire was introduced and left in place. About 6 cm from the initial introduction site in the anterolateral chest wall a second incision was made. The pleural catheter was then tunneled under the skin with the help of a trocar. The init ial site was then dilated and the Pleurx catheter was advanced into the pleural space without any difficulty. The incision sites were sutured. There was good hemostasis. 750 cc of serosanguineous fluid was drained. Complications: None Follow-up: 1. The patient will follow-up with me in 10 days time for removal of sutures.
--- NOTE | 2021-04-01 07:51 | XR_ITS ---
WS: [email or web address] PORTABLE CHEST HISTORY: post lupillo drain placement COMPARISON: 03/31/2021 Volume loss with moderate obscuration of the RIGHT lung. There is a [place] drain which has been place d over the lower RIGHT thorax. No pneumothorax is evident. No significant improvement of aeration. Th e tip of the Lupillo drain is directed inferior and lateral. The LEFT lung is clear. Cardiac size: Partially obscured by the consolidation within the RIGHT thorax. There is volume loss a nd shift of the mediastinal structures slightly to the RIGHT. Mediastinum/Aorta: Normal mediastinum. No osseous abnormality seen. XR/XR chest 1V portable [id number] IMPRESSION: 1. Interval placement of a RIGHT [place] drain with tip projecting over the low er RIGHT thorax and directed laterally. 2. Volume loss with moderate obscuration of the RIGHT lung. 3. No pneumothorax.
== END 2021-04-01 09:11 | disposition home or self-care (01) ==
PROVIDERS: PCP Internal Medicine; Visit Provider Internal Medicine Critical Care Medicine
PROC: (CPT 32550; principal; 2021-04-01 07:00)
DX: C34.91 Malignant neoplasm of unspecified part of right bronchus or lung (principal); J91.0 Malignant pleural effusion; J44.9 Chronic obstructive pulmonary disease, unspecified
CPT/HCPCS: 32550; 71045; J2250; J3010; J7030

== ENCOUNTER 2021-04-09 12:08 | Outpatient (RCR) | payer MEDICARE, MEDICAID, SELFPAY ==
[2021-03-12 12:14] VITALS: BP 147/73; PULSE 95; RESP 20; TEMP 36.7; O2SAT 98; BMI 23.0
--- NOTE | 2021-03-12 13:25 | PC.NURSE ---
ranjit drain, 450ml removed. Patient tolerated well. cap replaced, dressing changed. VSS
[2021-03-16 12:27] VITALS: BP 136/79; PULSE 101; RESP 20; TEMP 37.1; O2SAT 98
[2021-03-19 11:50] VITALS: BP 126/77; PULSE 87; RESP 22; TEMP 37.1; O2SAT 99
[2021-03-23 12:20] VITALS: BP 118/71; PULSE 93; RESP 18; TEMP 35.7; O2SAT 94
--- NOTE | 2021-03-23 12:20 | PC.NURSE ---
Pt to GI Lab for drainage of pluerx cath to right chest. Site accessed using sterile technique. 650 mL dark edel liquid removed. Drain stopped upon pt request due to discomfort. New cap placed and dressing applied. Pt tolerated well.
[2021-04-06 11:48] VITALS: BP 115/75; PULSE 98; RESP 18; TEMP 36.6; O2SAT 99
[2021-04-09 12:10] VITALS: BP 162/101; PULSE 97; RESP 18; TEMP 37.1; O2SAT 95
== END 2021-04-10 23:59 | disposition home or self-care (01) ==
LOC: GILAB 12:08
PROVIDERS: PCP Internal Medicine; Visit Provider Internal Medicine Critical Care Medicine
DX: C34.90 Malignant neoplasm of unspecified part of unspecified bronchus or lung (principal); Z51.0 Encounter for antineoplastic radiation therapy; C34.11 Malignant neoplasm of upper lobe, right bronchus or lung; I10 Essential (primary) hypertension; J44.9 Chronic obstructive pulmonary disease, unspecified; I48.91 Unspecified atrial fibrillation; F41.9 Anxiety disorder, unspecified; F32.9 Major depressive disorder, single episode, unspecified; Z86.69 Personal history of other diseases of the nervous system and sense organs; Z85.41 Personal history of malignant neoplasm of cervix uteri; Z92.21 Personal history of antineoplastic chemotherapy; Z79.52 Long term (current) use of systemic steroids
CPT/HCPCS: 77336; 77412

== ENCOUNTER → 2021-04-28 09:33 | Day surgery (SDC) | payer MEDICARE, MEDICAID, SELFPAY ==
--- NOTE | 2021-04-28 10:10 | SUR.PREOP ---
TIME OUT FOR PICC LINE INSERTION
--- NOTE | 2021-04-28 10:19 | XR_ITS ---
WS: [email or web address] Exam: XR chest 1V portable [id number] Date/Time of Exam: 04/28/2021 11:00 AM Reason For Exam: post picc placement Comparison 04/23/2021. A right-sided PICC line has been placed and appears to end in the lower one third of the SVC. The dis deepak end of the line is looped with the tip directed back cephalad. Large right-sided pleural effusion is noted unchanged. The left lung is clear and fully expanded. The right heart is obscured by pleura l effusion. No pneumothorax seen. A right-sided thoracostomy tube is seen over the right lower lung z one. Regional bony structures are unremarkable as visualized. XR/XR chest 1V portable [id number] IMPRESSION: 1. Right-sided PICC line in place appearing to end in the expected region of th e lower one third of the SVC. The line is looped with the tip directed back cep halad. 2. Large right-sided pleural effusion unchanged since prior study. 3. Right-sided drainage tube in place over the right lower lung zone. It is unc hanged in position. These findings were discussed by phone with the ordering caregiver at 11:15 AM 04/28/2021.
--- NOTE | 2021-04-28 11:09 | XR_ITS ---
WS: [email or web address] Exam: XR chest 1V portable [id number] Date/Time of Exam: 04/28/2021 11:19 AM Reason For Exam: PICC LINE PLACEMENT Comparison with the last exam performed on the same day at 1104 hours. The PICC line has been repositioned and is slightly more cephalad than noted on the earlier exam on t he same day however the loop is still present in the distal aspect of the line with the tip directed cephalad. No other changes in the appearance the chest since the prior exam. XR/XR chest 1V portable [id number] IMPRESSION: 1. Right-sided PICC line in place somewhat more cephalad than noted previously however the distal end of the line is still looped with the tip pointing cephal ad.
--- NOTE | 2021-04-28 11:25 | XR_ITS ---
WS: [email or web address] Exam: XR chest 1V portable [id number] Date/Time of Exam: 04/28/2021 12:00 AM Reason For Exam: PICC LINE PLACEMENT Comparison made with the most recent exam performed on the same day at 1110 hours. Right-sided PICC line has been repositioned and now ends in the right atrium. Previously noted loop i n the distal end of the line has resolved. Remaining aspects the chest are unchanged. XR/XR chest 1V portable [id number] IMPRESSION: 1. Right-sided PICC line ending in the right atrium. Previously noted loop in t he distal end the line has resolved.
--- NOTE | 2021-04-28 11:34 | XR_ITS ---
WS: [email or web address] Exam: XR chest 1V portable [id number] Date/Time of Exam: 04/28/2021 12:00 AM Reason For Exam: PICC LINE Comparison with the latest exam at 1126 hours on the same day. The right-sided PICC line has been repositioned and now ends in the lower one third of the SVC in goo d position. No other changes in the overall appearance the chest since the last exam. XR/XR chest 1V portable [id number] IMPRESSION: 1. Right-sided PICC line ending in the lower one third of the SVC in good posit ion. No other changes.
== END ==
PROVIDERS: PCP Internal Medicine; Visit Provider Nurse Practitioner Family
DX: C79.31 Secondary malignant neoplasm of brain (principal); D50.8 Other iron deficiency anemias; C34.11 Malignant neoplasm of upper lobe, right bronchus or lung; C34.90 Malignant neoplasm of unspecified part of unspecified bronchus or lung
CPT/HCPCS: 36569; 71045; J1644

== ENCOUNTER 2021-05-04 13:00 | Outpatient (RCR) | payer MEDICARE, MEDICAID, SELFPAY ==
[2021-04-13 12:15] VITALS: BP 155/87; PULSE 94; RESP 18; TEMP 37.1; O2SAT 97
--- NOTE | 2021-04-13 12:25 | PC.NURSE ---
Pt to GI lab for drainage of pleurx catheter. Sutures to be removed from drain as ordered. 300 mL dark edel fluid removed from pleurx drain. Sutures x2 to drain site removed without difficulty. Pt tolerated well. Site with old bruising noted. No new bruising or bleeding apparent.
[2021-04-17 12:10] VITALS: BP 167/93; PULSE 91; RESP 18; TEMP 37.1; O2SAT 94
[2021-04-20 11:05] VITALS: BP 137/87; PULSE 97; RESP 18; TEMP 37.3; O2SAT 94
--- NOTE | 2021-04-20 11:30 | PC.NURSE ---
Pt to GI lab for drainage of Pleurx cath to right chest. Site with mild, healing bruising. Pt states where the bruising is is very sore. States the pain travels downward toward her abdomen. States her abdomen feels pinto and firmer than normal. 250 mL dark edel fluid drained from Pleurx cath. Drainage very slow. Tolerated procedure well. VSS.
--- NOTE | 2021-04-23 11:56 | XR_ITS ---
WS: [email or web address] XR chest 1V portable [id number] REASON FOR EXAM: Shortness of breath and pain FINDINGS: Redundant right lower hemithorax chest tube which may be a Bonner type chest tube for chronic pleur al drainage and pleurodesis. Compared to the previous examination of 04/01/2021, the apical portion of the right hemithorax has be come increasingly opacified, likely loculated pleural effusion and progressive right upper lung atele ctasis. The lower right hemithorax has also become more opacified and there are diffuse reticular lung opacit ies in the right lung. XR/XR chest 1V portable [id number] IMPRESSION: Increasing abnormality in the right chest as above.
[2021-04-23 12:15] VITALS: BP 160/98; PULSE 93; RESP 18; TEMP 37.6; O2SAT 92
--- NOTE | 2021-04-23 12:18 | PC.NURSE ---
Pt to GI lab for drainage of Pleurx cath from right chest. Pt continues to c/o pain. States she is more SOB today. O2 sat 92% on 4 L NC. Only 125 mL dark edel fluid drained from cath. Dr. Meadows notified. Orders received for portable chest xray. Pt states Dr. Almeida placed her on antibiotics today for elevated WBC count. Temp noted at 99.7.
--- NOTE | 2021-04-28 | XR_ITS ---
WS: [email or web address] Exam: XR chest 1V portable [id number] Date/Time of Exam: 04/28/2021 12:00 AM Reason For Exam: PICC LINE Comparison with the latest exam at 1126 hours on the same day. The right-sided PICC line has been repositioned and now ends in the lower one third of the SVC in goo d position. No other changes in the overall appearance the chest since the last exam.
--- NOTE | 2021-04-28 | XR_ITS ---
WS: [email or web address] Exam: XR chest 1V portable [id number] Date/Time of Exam: 04/28/2021 12:00 AM Reason For Exam: PICC LINE PLACEMENT Comparison made with the most recent exam performed on the same day at 1110 hours. Right-sided PICC line has been repositioned and now ends in the right atrium. Previously noted loop i n the distal end of the line has resolved. Remaining aspects the chest are unchanged.
--- NOTE | 2021-04-28 11:19 | XR_ITS ---
WS: [email or web address] Exam: XR chest 1V portable [id number] Date/Time of Exam: 04/28/2021 11:19 AM Reason For Exam: PICC LINE PLACEMENT Comparison with the last exam performed on the same day at 1104 hours. The PICC line has been repositioned and is slightly more cephalad than noted on the earlier exam on t he same day however the loop is still present in the distal aspect of the line with the tip directed cephalad. No other changes in the appearance the chest since the prior exam.
[2021-04-28 12:15] VITALS: BP 145/90; PULSE 97; RESP 18; TEMP 37.9; O2SAT 90
--- NOTE | 2021-05-04 13:10 | PC.NURSE ---
Pt to GI lab for drainage of pleurx cath to right chest. 50 mL reddish fluid drained. Pt states she has not had the feeling of being full . Denies SOB. PICC line to right upper arm in place. Pt to start chemo tomorrow. Dressing noted due to be changed. Pt without home health and not scheduled to see oncology until Tuesday. Dressing changed per protocol.
[2021-05-04 13:30] VITALS: BP 131/90; PULSE 93; RESP 18; TEMP 36.4; O2SAT 93
== END 2021-05-11 23:59 | disposition home or self-care (01) ==
LOC: GILAB 13:00
PROVIDERS: PCP Internal Medicine; Visit Provider Internal Medicine Critical Care Medicine
DX: C34.90 Malignant neoplasm of unspecified part of unspecified bronchus or lung (principal)
CPT/HCPCS: 71045; 87070; 87075; 87205

== ENCOUNTER 2021-05-05 06:30 | Outpatient (RCR) | payer MEDICARE, MEDICAID, SELFPAY ==
[2021-04-21 09:03] LABS: Hematocrit 38.8 % (37.0-47.0); Hemoglobin 12.3 g/dL (11.5-15.3); Mean Corpuscular HGB Conc 31.7 g/dL (30.0-36.0); Mean Corpuscular Hemoglobin 27.8 pg (28.0-34.0); Mean Corpuscular Volume 87.6 fl (81-99); Mean Platelet Volume 8.7 fL (7.4-10.4); Platelet Count 401 10^3/cmm (130-400); Red Blood Count 4.43 10^6/uL (4.1-5.3); Red Cell Distribution Width 17.7 % (12.1-15.1); White Blood Count 18.4 10^3/uL (4.0-10.0)
[2021-04-21 09:30] LABS: Alanine Aminotransferase 55 U/L (0-33); Albumin Level 3.1 g/dL (3.5-5.2); Alkaline Phosphatase 130 IU/L (35-105); Blood Urea Nitrogen 27 mg/dL (8-23); Calcium 8.4 mg/dL (8.5-10.5); Carbon Dioxide 20 mmol/L (22-29); Chloride 96 mmol/L (98-107); Globulin 2.4 g/dL (1.3-4.6); Glomerular Filtration Rate 99.7 mL/min (90-130); Glucose 99 mg/dL (65-115); Osmolality Calculated 271 mOsm/kg (285-295); Sodium 128 mmol/L (136-145); Total Bilirubin 0.2 mg/dL (0.15-1.2); Total Protein 5.5 g/dL (6.6-8.7)
[2021-04-21 09:31] LABS: Anion Gap 17.1 (5-19); Aspartate Amino Transferase 26 U/L (0-32); Potassium 5.1 mmol/L (3.5-5.1)
[2021-04-21 09:54] LABS: Thyroid Stimulating Hormone 2.63 uIU/mL (0.27-4.20)
[2021-04-21 10:24] LABS: Absolute Neutrophil 16.9 10^3/cmm (1.4-6.5); Absolute Segmented Neutrophil 16.9 10/cmm (1.6-7.1); Eosinophils 0 %; Lymphocytes 0 %; Monocytes Absolute 1.1 10^3/cmm (0.1-0.6); Segmented Neutrophils 92 %; Slide Review Slide Review Perform; Total Cells Counted 100 (0-100)
[2021-04-21 10:25] LABS: Anisocytosis Trace; Platelet Estimate Increased (Normal)
== END 2021-05-11 23:59 | disposition home or self-care (01) ==
LOC: ONCMED 06:30
PROVIDERS: Nurse Practitioner Family; PCP Internal Medicine; Visit Provider Internal Medicine Hematology & Oncology
DX: C34.11 Malignant neoplasm of upper lobe, right bronchus or lung (principal); I10 Essential (primary) hypertension; J44.9 Chronic obstructive pulmonary disease, unspecified; I48.91 Unspecified atrial fibrillation; F41.9 Anxiety disorder, unspecified; F32.9 Major depressive disorder, single episode, unspecified; Z86.69 Personal history of other diseases of the nervous system and sense organs; Z85.41 Personal history of malignant neoplasm of cervix uteri; Z79.52 Long term (current) use of systemic steroids; Z79.899 Other long term (current) drug therapy
CPT/HCPCS: 36415; 36592; 80053; 84443; 85007; 85025; 99215

== ENCOUNTER 2021-05-05 10:38 | Inpatient (IN) | payer MEDICARE, MEDICAID, SELFPAY ==
[2021-05-05] VITALS (10 sets, daily range): BP systolic 97–143; BP diastolic 69–99; PULSE 82–99; RESP 17–19; TEMP 35.7–37.1; O2SAT 90–100; BMI 20.9
[2021-05-05 10:07] LABS: Basophils % 0.2 %; Eosinophils % 0.1 %; Hematocrit 37.2 % (37.0-47.0); Hemoglobin 11.9 g/dL (11.5-15.3); Lymphocytes # 0.3 10^3/uL (0.8-4.8); Lymphocytes % 1.9 %; Mean Corpuscular Hemoglobin 27.7 pg (28.0-34.0); Mean Corpuscular Volume 86.5 fl (81-99); Mean Platelet Volume 8.8 fL (7.4-10.4); Monocytes # 1.3 10^3/uL (0.2-0.9); Monocytes % 7.7 %; Neutrophils # 14.21 10^3/uL (1.8-7.7); Neutrophils % 87.5 %; Nucleated Red Blood Cells % 0 %; Platelet Count 341 10^3/cmm (130-400); Red Cell Distribution Width 17.5 % (12.1-15.1); White Blood Count 16.2 10^3/uL (4.0-10.0)
[2021-05-05 10:29] LABS: Alanine Aminotransferase 73 U/L (0-33); Albumin Level 3.3 g/dL (3.5-5.2); Alkaline Phosphatase 161 IU/L (35-105); Anion Gap 15.8 (5-19); Aspartate Amino Transferase 32 U/L (0-32); Blood Urea Nitrogen 28 mg/dL (8-23); Calcium 8.4 mg/dL (8.5-10.5); Carbon Dioxide 26 mmol/L (22-29); Chloride 94 mmol/L (98-107); Globulin 2.1 g/dL (1.3-4.6); Glomerular Filtration Rate 99.7 mL/min (90-130); Glucose 114 mg/dL (65-115); Osmolality Calculated 278 mOsm/kg (285-295); Potassium 4.8 mmol/L (3.5-5.1); Sodium 131 mmol/L (136-145); Total Bilirubin 0.3 mg/dL (0.15-1.2); Total Protein 5.4 g/dL (6.6-8.7)
--- NOTE | 2021-05-05 10:54 | ECG_ITS ---
[facility] Test Date: 2021-05-05 Pat Name: Iram Denis Department: Room: Gender: Female [employer]: : 1955 Requested By: Aubrey Cano Order Number: [id number] Titus MD: Jil Cooley M.D. Measurements Intervals [place] Rate: 94 P: 67 TN: 178 QRS: 77 QRSD: 87 T: 81 QT: 332 QTc: 415 Interpretive Statements SINUS RHYTHM POSSIBLE LEFT ATRIAL ENLARGEMENT [-0.1mV P-WAVE IN V1/V2] ST ELEVATION CONSISTENT WITH INJURY, PERICARDITIS, OR EARLY REPOLARIZATION [ST ELEVATION W/O NORMALLY INFLECTED T-WAVE] Compared to ECG 01/10/2021 00:12:32 ST (T wave) deviation now present Early repolarization now present Intraventricular conduction delay no longer present T-wave abnormality no longer present Electronically Signed On 05-05-2021 21:53:31 AIRCRAFT DESIGN[employer] by Jil Cooley M.D. [id number]
--- NOTE | 2021-05-05 10:54 | XR_ITS ---
WS: [email or web address] Portable AP upright chest, 05/05/2021 Clinical Data: dyspnea/cough Comparison: Portable chest, 04/28/2021. Findings: There is opacity in the right apex unchanged. There is opacity with minimal aeration in the right lower thorax. There is a basilar right chest tube unchanged. The right PICC line remains in th e same position. The left lung remains clear. The left heart border is well visualized. There is shif t of the heart and mediastinum from left to right. XR/XR chest 1V portable [id number] Impression: 1. No change in right apical opacity and right lower lobe opacity with minimal aeration. 2. No change in right PICC line and right basilar chest tube.
--- NOTE | 2021-05-05 10:54 | ED_ITS ---
HPI - Chest Pain General: Chief Complaint: Chest Pain Stated Complaint: CHEST PRESSURE Time Seen by Provider: 05/05/21 10:53 Source: patient History of Present Illness: HPI narrative: Six 6-year-old female presents emergency room from the oncology clinic with complaint of chest pain. She been having on for over the last week. 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 She is she is not noticing anything that exacerbates or relieves it. She has no known history of coronary disease she is not diabetic. She was about to begin another round of chemotherapy. MD complaint: chest pain Pertinent past history: other (Lung CA with metastasis to the brain) Onset (ago): week(s) Timing of current episode: episodic Prior episodes: Yes Onset: during rest Pain location: substernal and left chest Quality: tightness, aching and heaviness Relieving factors: nothing Exacerbating factors: nothing Associated symptoms: Reports dyspnea; Deny abdominal pain, diaphoresis, fever(s), leg edema, nausea, palpitations, s ense of impending doom, syncope or vomiting Treatment prior to arrival: none Review of Systems Const: Denies: fever(s) or diaphoresis ENMT: Denies: throat pain, ear or mastoid pain, nasal discharge or nasal congestion Card: Denies: palpitations or syncope Resp: Reports: dyspnea GI: Denies: abdominal pain, nausea or vomiting : Denies: flank pain, difficulty voiding, dysuria, urinary frequency or urinary urgency Skin/Breast: Denies: rash or pruritus PFSH ED PFSH: Medical History Hyponatremia Lung cancer Lung mass Osteoarthritis of left knee Panic disorder [episodic paroxysmal anxiety] Port-A-Cath in place 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 Surgical History S/P bronchoscopy Family History Other CAD (coronary artery disease) Cancer Dementia Hypertension Lung disease Stroke Denies family history of Diabetes Hyperlipidemia Chronic kidney disease (CKD) Family history of premature coronary artery disease Social History Quit status (tobacco): has quit using tobacco Year quit tobacco: 2020 Smoking risk assessment/counseling performed?: Yes Tobacco counseling given: counseling >3 minutes Alcohol intake: current Alcohol intake frequency: few times a month Alcohol type: beer Counseling given: No Counseling given: No Lives independently: Yes Household members: family Marital status: Current occupational status: retired History of recent travel: No Current gender identity: Female Physical Exam Const: GENERAL APPEARANCE: cooperative and comfortable ORIENTATION/C ONSCIOUSNESS: Yes awake, Yes oriented to person, Yes oriented to place and Yes oriented to time HENMT: COMMON NORMALS: normocephalic and atraumatic HEAD & SCALP: normocephalic and atraumatic Neck/C-Spine: COMMON NORMALS: no JVD Resp: COMMON NORMALS: normal respiratory effort, No retractions, No use of accessory muscles and clear to auscultation bilaterally AUSCULTATION: clear to auscultation bilaterally and diminished lung sounds Cardio: COMMON NORMALS: no JVD, regular rate, regular rhythm and No murmurs present (Cardio) RATE: regular rate RHYTHM: regular rhythm GI: COMMON NORMALS: Soft to palpation and No hepatosplenomegaly present AUSCULTATION: Yes normoactive bowel sounds PALPATION: Yes Soft to palpation, No Tenderness to palpation present (GI), No Guarding due to palpation present (GI) and Yes No hepatosplenomegaly present Extremity: COMMON NORMALS: normal to inspection, capillary refill normal, no clubbing, cyanosis or edema, no calf tenderness and no pedal edema Neuro: SENSORIUM/ORIENTATION: Yes oriented to person, Yes oriented to place and Yes oriented to time Skin: COMMON NORMALS: no rashes or lesions noted GENERAL SKIN EXAM: no rashes or lesions noted Course Vital Signs: Vital signs: Vital Signs Temperature 98.7 F 05/05/21 10:59 Pulse Rate 87 05/05/21 15:58 Respiratory Rate 17 05/05/21 12:31 Blood Pressure 136/93 05/05/21 15:58 Pulse Oximetry 94 05/05/21 15:58 MDM - Chest Pain MDM Narrative Medical decision making narrative: EKGs and imaging reviewed as well as laboratory studies patient has significant bump in her 2-hour troponin. Initial EKGs had a lot of early repole I reviewed them with Dr. Mclean he agreed that this was not an ST elevation [place]. We will go ahead and heparinize her there is some concern with her known history of brain mets. She was still having some mild chest compressions resolved by nitro and morphine. Discussed with hospitalist and with Dr. Mclean and Dr. Godoy orders written. Medical Records Attestation: I reviewed the patient's medical records. Lab Data Attestation: I reviewed the patient's lab results. Result diagrams: 05/05/21 09:50 05/05/21 09:50 Labs: Radiology Impressions Chest X-Ray 05/05/21 10:54 Impression: 1. No change in right apical opacity and right lower lobe opacity with minimal aeration. 2. No change in right PICC line and right basilar chest tube. Laboratory Results WBC 16.2 10^3/uL (4.0-10.0) H 05/05/21 09:50 RBC 4.30 10^6/uL (4.1-5.3) 05/05/21 09:50 Hgb 11.9 g/dL (11.5-15.3) 05/05/21 09:50 Hct 37.2 % (37.0-47.0) 05/05/21 09:50 MCV 86.5 fl (81-99) 05/05/21 09:50 MCH 27.7 pg (28.0-34.0) L 05/05/21 09:50 MCHC 32.0 g/dL (30.0-36.0) 05/05/21 09:50 RDW 17.5 % (12.1-15.1) H 05/05/21 09:50 Plt Count 341 10^3/cmm (130-400) 05/05/21 09:50 MPV 8.8 fL (7.4-10.4) 05/05/21 09:50 Neut % (Auto) 87.5 % 05/05/21 09:50 Lymph % (Auto) 1.9 % 05/05/21 09:50 [place] % (Auto) 7.7 % 05/05/21 09:50 Eos % (Auto) 0.1 % 05/05/21 09:50 Baso % (Auto) 0.2 % 05/05/21 09:50 Neut # (Auto) 14.21 10^3/uL (1.8-7.7) H 05/05/21 09:50 Lymph # (Auto) 0.3 10^3/uL (0.8-4.8) L 05/05/21 09:50 [place] # (Auto) 1.3 10^3/uL (0.2-0.9) H 05/05/21 09:50 Eos # (Auto) 0.0 10^3/uL (0.0-0.8) 05/05/21 09:50 Baso # (Auto) 0.0 10^3/uL (0.0-0.1) 05/05/21 09:50 Nucleated RBC % (auto) 0 % 05/05/21 09:50 Nucleated RBCs # 0.0 /100WBC 05/05/21 09:50 Sodium 131 mmol/L (136-145) L 05/05/21 09:50 Potassium 4.8 mmol/L (3.5-5.1) 05/05/21 09:50 Chloride 94 mmol/L (98-107) L 05/05/21 09:50 Carbon Dioxide 26 mmol/L (22-29) 05/05/21 09:50 Anion Gap 15.8 (5-19) 05/05/21 09:50 BUN 28 mg/dL (8-23) H 05/05/21 09:50 Creatinine 0.6 mg/dL (0.5-0.9) 05/05/21 09:50 GFR Calculation 99.7 mL/min (90-130) 05/05/21 09:50 Glucose 114 mg/dL (65-115) 05/05/21 09:50 Calculated Osmolality 278 mOsm/kg (285-295) L 05/05/21 09:50 Calcium 8.4 mg/dL (8.5-10.5) L 05/05/21 09:50 Total Bilirubin 0.3 mg/dL (0.15-1.2) 05/05/21 09:50 AST 32 U/L (0-32) 05/05/21 09:50 ALT 73 U/L (0-33) H 05/05/21 09:50 Alkaline Phosphatase 161 IU/L (35-105) H 05/05/21 09:50 Creatine Kinase 20 U/L (26-192) L 05/05/21 09:50 Troponin T Baseline 25 ng/L (0-10) H 05/05/21 09:50 Troponin T 120 Minute 98.31 ng/L (0-10) H 05/05/21 11:59 Delta Troponin T 73.31 ABS# (0-10) H* 05/05/21 11:59 NT-Pro-B Natriuret Pep 727 pg/mL (0-125) H 05/05/21 11:59 Total Protein 5.4 g/dL (6.6-8.7) L 05/05/21 09:50 Albumin 3.3 g/dL (3.5-5.2) L 05/05/21 09:50 Globulin 2.1 g/dL (1.3-4.6) 05/05/21 09:50 Procalcitonin 0.12 ng/mL (0-0.5) 05/05/21 11:59 TSH 1.88 uIU/mL (0.27-4.20) 05/05/21 11:59 Urine Color Yellow (Yellow) 05/05/21 11:35 Urine Appearance Clear (CLEAR) 05/05/21 11:35 Urine pH 5 (5-7) 05/05/21 11:35 Ur Specific [place] 1.020 (1.005-1.030) 05/05/21 11:35 Urine Protein Neg (Negative) 05/05/21 11:35 Urine Glucose (UA) Norm (Normal) 05/05/21 11:35 Urine Ketones Negative (Negative) 05/05/21 11:35 Urine Blood 3+ (Negative) H 05/05/21 11:35 Urine Nitrate Negative (Negative) 05/05/21 11:35 Urine Bilirubin Neg (Negative) 05/05/21 11:35 Urine Urobilinogen 1 mg/dL (Negative) H 05/05/21 11:35 Ur Leukocyte Esterase Trace (Negative) H 05/05/21 11:35 Urine RBC 5-10 /hpf (0-2) H 05/05/21 11:35 Urine WBC 5-10 /hpf (0-5) H 05/05/21 11:35 Ur Squamous Epith Cells 10-15 /hpf (0-5) H 05/05/21 11:35 Amorphous Sediment Not Reportable 05/05/21 11:35 Urine Bacteria 1+ /hpf (NONE) H 05/05/21 11:35 Hyaline Casts 0-4 /lpf H 05/05/21 11:35 Urine Mucus 2+ /hpf 05/05/21 11:35 Coronavirus 229E (PCR) Not detected (NOT DETECT) 05/05/21 Unknown SARS-CoV-2 (PCR) Not detected (NOT DETECT) 05/05/21 Unknown SARS-CoV-2 RNA (RT-PCR) Cancelled 05/05/21 12:33 Discharge Plan Discharge Condition: Stable Prescriptions: No Action ipratropium-albuterol 0.5 mg-3 mg(2.5 mg base)/3 mL solution for nebulization 3 ml INHALATION TID PRN (Reason: Shortness Of Breath) 30 Days Qty: 360 4RF clonazepam 0.5 mg tablet 0.5 mg PO TID PRN (Reason: Anxiety) Qty: 90 0RF Label Comments: patient mentioned starting xanax? need to confirm next visit 03-16-21 trazodone 50 mg tablet 50 mg PO BEDTIME PRN (Reason: Sleep) 0RF oxycodone 10 mg tablet 10 mg PO Q4H PRN (Reason: Pain) 0RF albuterol sulfate [ProAir HFA] 90 mcg/actuation HFA aerosol inhaler 2 puff INHALATION QID PRN (Reason: Shortness Of Breath) 0RF Label Comments: patient mentioned starting xanax? need to confirm next visit 03-16-21 amiodarone 200 mg tablet 200 mg PO BID 0RF Label Comments: patient mentioned starting xanax? need to confirm next visit 03-16-21 Xarelto 15 mg tablet 15 mg PO DAILY MDD ON HOLD 0RF Label Comments: patient mentioned starting xanax? need to confirm next visit 03-16-21 Rx Instructions: ON HOLD ext med history shows last filled 03/30/21 30d/s dexamethasone 4 mg tablet 2 mg PO BID 0RF Referrals: Jayna Schmitt MD [Primary Care Provider] - Coding Level of Care Code ED Rn [facility] for Chg Fwd 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
[2021-05-05 11:42] LABS: Creatine Phosphokinase 20 U/L (26-192)
[2021-05-05 11:44] LABS: Troponin(5th) Baseline 25 ng/L (0-10)
[2021-05-05 12:10] LABS: Add Urine Microscopic? YES; Bilirubin Urine Neg (Negative); Blood Urine 3+ (Negative); Glucose Urine UA Norm (Normal); Ketones Urine Negative (Negative); Leukocyte Esterase Urine Trace (Negative); Nitrate Urine Negative (Negative); Protein Urine Neg (Negative); Urine Appearance Clear (CLEAR); Urine Color Yellow (Yellow); Urobilinogen Urine 1 mg/dL (Negative); pH Urine 5 (5-7)
[2021-05-05 12:31] LABS: Add Urine Culture? No; Bacteria Urine 1+ /hpf; Hyaline Casts Urine 0-4 /lpf; Mucus Urine 2+ /hpf
[2021-05-05 12:41] LABS: Troponin 5 2HR 98.31 ng/L (0-10)
--- NOTE | 2021-05-05 12:54 | ECG_ITS ---
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 Measurements Intervals [place] Rate: 90 P: 70 SD: 171 QRS: 87 QRSD: 98 T: 73 QT: 298 QTc: 365 Interpretive Statements SINUS RHYTHM LOW QRS VOLTAGE IN EXTREMITY LEADS [QRS DEFLECTION < 0.5 mV IN LIMB LEADS] SEPTAL MYOCARDIAL INFARCTION , OF INDETERMINATE AGE [40+ ms Q WAVE IN V1/V2] Compared to ECG 01/10/2021 00:12:32 Low QRS voltage now present Myocardial infarct finding now present Intraventricular conduction delay no longer present T-wave abnormality no longer present Electronically Signed On 05-05-2021 17:25:30 [employer]IER FI[employer] SERVICE TECHNICIAN by Jil Cooley M.D. [id number]
[2021-05-05 12:55] LABS: Troponin 5 2HR Delta 73.31 ABS# (0-10)
[2021-05-05] MEDS: cefTRIAXone 1,000 MG in sodium chloride 0.9% (plus) 50 ML 100 MG IV (13:21)
[2021-05-05] MEDS: nitroglycerin drip 50 MG/250 ML PREMIX IV (14:01)
--- NOTE | 2021-05-05 14:02 | PC.PHAR ---
pt states she takes care of her own medications-pt states she is no longer taking lisinopril 10mg daily ext med history shows last filled 03/11/21 30d/s-pt states she is still taking dexamethasone 2mg bid ext med history shows last filled 02/25/21 30d/s-pt states her xarelto is on hold states she is unsure how long its been on hold ext med history shows last filled 03/30/21 30d/s-notes are made in the pharmacy comments
[2021-05-05 14:56] LABS: Adenovirus Not Detected (NOT DETECT); Chlamydia Pneumoniae Not Detected (NOT DETECT); Coronavirus 229E,HKU1,NL63,OC4 Not Detected (NOT DETECT); Human Metapneumovirus Not Detected (NOT DETECT); Human Rhinovirus/Enterovirus Not Detected (NOT DETECT); Influenza A Not Detected (NOT DETECT); Influenza A H1 Not Detected (NOT DETECT); Influenza A H1-2009 Not Detected (NOT DETECT); Influenza A H3 Not Detected (NOT DETECT); Influenza B Not Detected (NOT DETECT); Mycoplasma Pneumoniae Not Detected (NOT DETECT); Parainfluenza Virus Type 1 Not Detected (NOT DETECT); Parainfluenza Virus Type 2 Not Detected (NOT DETECT); Parainfluenza Virus Type 3 Not Detected (NOT DETECT); Parainfluenza Virus Type 4 Not Detected (NOT DETECT); Respiratory Syncytial Virus A Not Detected (NOT DETECT); Respiratory Syncytial Virus B Not Detected (NOT DETECT); SARS-COV-2 Not Detected (NOT DETECT)
--- NOTE | 2021-05-05 15:01 | CT_ITS ---
WS: [id number] CTA OF THE CHEST WITH PULMONARY EMBOLISM PROTOCOL TECHNIQUE: High-resolution contrast enhanced CTA of the chest with coronal and sagittal [place] [facility] [place] with pulmonary embolism protocol. MIP images are also reviewed. CLINICAL INFORMATION: chest pain, h/o pulmonary vein thrombosis COMPARISON: January 06, 2021 DLP: 566.[address] scans at [facility] use at least one of these dose optimization techniques: automated e xposure control; mA and/or kV adjustment per patient size (includes targeted exams where dose is matc hed to clinical indication); or iterative reconstruction. FINDINGS: The proximal main pulmonary arteries are normal. No filling defects in the segmental or subsegmental pulmonary arteries. Compression of the right upper lobe segmental and subsegmental pulmonary arteries due to underlying collapse. No evidence of pulmonary embolus. Right pleural drain. Moderate layering right pleural effusion. Right hilar and suprahilar mass simila r to the prior examinations with narrowing of the right mainstem bronchus and collapse right upper lo be. This is similar to December 29, 2020. Improved aeration of the super segment right lower lobe co mpared to previous with interstitial edema. Left lung is well aerated. Previously described opacity i n the left lower lobe has resolved compared to January 06, 2021. No other significant changes [place] red to previous. Adrenal glands are normal. Cholecystectomy clips. Bilateral renal cysts partially visualized. Calcifi ed left renal lesion is partially visualized and appears stable. Normal spleen. Normal GE junction. M oderate thoracic kyphosis. CT/CT angio chest PE protcl [id number] IMPRESSION: 1. Proximal main pulmonary arteries are normal. No evidence of pulmonary embol us. 2. Similar-appearing right hilar and suprahilar mass with narrowing of the rig ht mainstem bronchus and right upper lobe collapse. This is similar to the prio r examinations. 3. Right pleural drain with moderate right pleural effusion. 4. Improved aeration of the super segment right lower lobe compared to previou s. 5. Left lower lobe opacity previously described has resolved.
--- NOTE | 2021-05-05 15:01 | USCV_ITS ---
Iram Denis Age: 66 Gender: F : 1955 Exam Date: 05/05/2021 16:34 Ordering Phys: Clay Isabel MD Technologist: NAYELI Exam Location: [place] Indication: nstemi BP: / HR: 89 Rhythm: Sinus Technical Quality: Technically difficult study MEASUREMENTS (Male / Female) Normal Values 2D ECHO LV Diastolic Diameter PLAX 4.3 cm 4.2 - 5.9 / 3.9 - 5.3 cm LV Systolic Diameter PLAX 3.9 cm IVS Diastolic Thickness 1.2 cm 0.6 - 1.0 / 0.6 - 0.9 cm IVS Systolic Thickness 1.3 cm LVPW Diastolic Thickness 1.1 cm 0.6 - 1.0 / 0.6 - 0.9 cm LVPW Systolic Thickness 1.2 cm LVOT Diameter 2.0 cm LV Ejection Fraction 2D Teich 21.0 % LV Ejection Fraction MOD 2C 22.8 % LV Ejection Fraction 2C AL 23.0 % LA Diameter 2.5 cm LA Width 2.8 cm LA Height 5.0 cm Aorta at Sinotubular Diameter 1.7 cm M-MODE Aortic Annulus Diameter 3.3 cm LA Ao Ratio MM 0.8 DOPPLER AV Peak Velocity 88.7 cm/s LVOT Peak Velocity 61.0 cm/s AV Area Cont Eq vti 1.9 cm squared AV Area Cont Eq pk 2.2 cm squared MV Area PHT 10.5 cm squared MV E' Velocity 47.0 cm/s Mitral E to MV E' Ratio 6.8 Mitral E to LV E' Lateral Ratio 8.7 Mitral E to LV E' Septal Ratio 5.6 Right Atrial Pressure 8.0 mmHg PV Peak Velocity 76.0 cm/s RV Acceleration Time 0.1 s RV Ejection Time 0.3 s RV AcT/ET 0.3 FINDINGS Left Ventricle Severe diffuse hypokinesia of the mid and apical septum and anteroseptal segments.: Severe diffuse hypokinesia of the LV apex. Severe diffuse hypokinesia of the mid and apical inferolateral wall segments. LV ejection fraction around 23%.Grade I/IV diastolic dysfunction (abnormal relaxation filling pattern), normal to mildly elevated filling pressures. The features suggesting apical ballooning. Right Ventricle Normal right ventricular size and systolic function. Right Atrium The right atrium is normal in size. Left Atrium The left atrium is normal in size. Mitral Valve No gross abnormalities no Aortic Valve Thickened aortic valve. Trace aortic valve regurgitation. Tricuspid Valve No gross abnormalities noted Pulmonic Valve No gross abnormalities noted Pericardium Normal pericardium without effusion. Aorta Normal ascending aorta dimension. CONCLUSIONS Multiple wall motion abnormalities with markedly diminished ejection fraction of 23%. 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 Trace aortic valve regurgitation. No intracardiac masses. No pericardial effusion. Normal cardiac chamber sizes. Compared to the study from 07/30/2020, there is a marked decline in the LV ejection fraction Dr Brianne Godoy MD FACC (Electronically Signed) Final Date: 06 May 2021 09:17 S
[2021-05-05 15:47] LABS: NT Pro B Type Natriuretic Pept 727 pg/mL (0-125); Procalcitonin 0.12 ng/mL (0-0.5); Thyroid Stimulating Hormone 1.88 uIU/mL (0.27-4.20)
[2021-05-05] MEDS: morphine 4 mg/mL SDV 1 mL 2 MG IVP (15:48)
[2021-05-05 16:07] LABS: C Reactive Protein 59.3 mg/L (0.0-4.9); Iron 24 ug/dL (37-145); Percent Saturation 12.1 % (20-50); Total Iron Binding Capacity 197 mcg/dl; Unsaturated Iron Binding 173 ug/dL (112-347)
--- NOTE | 2021-05-05 16:10 | P.HP_ITS ---
Providers/Chief Complaint Primary Care Provider: Jayna Schmitt MD Chief Complaint: CHEST PRESSURE History of Present Illness Iram Denis is a 66 year old female with past medical history of adenocarcinoma of lung, metastasis to brain on whole brain radiation with last treatment on 03/23/2021, superior vena cava thrombosis, pulmonary vein thrombosis, COPD, hypertension, intermittent atrial fibrillation who presents to the hospital today with complaining of difficulty in breathing which started last night more than usual. Patient is chronically on 4 L of oxygen supplementation and currently saturating 94% on the same 4 L. Patient states she has been having cough more than usual along with expectoration for last 3 days. Expectoration is usually yellowish in color not bloodstained or foul-smelling. Today morning she complained of retrosternal chest pain which is going from right to left without radiation so she presented to the ER. Denies any nausea, vomiting, dizziness, palpitations. Complains of on and off low-grade fever for last 1 week. Has not been vaccinated for COVID-19. Denies of any sick contacts. Blood work in the ER showed a white count 16.2, hemoglobin 11.9, platelet 341 with a left shift, sodium of 131, chloride of 94, creatinine 0.6, baseline troponin of 25 with delta of 73 in 2 hours, AST/ALT of 32/73,-phosphatase of 161, UA showing trace leuk esterase, negative nitrate with chest x-ray as below. Review of Systems General: Reports: 10 or more systems reviewed and unremarkable except in HPI and below Const: Denies: fever(s), chills, body aches, change in appetite, change in we ight, malaise, night sweats, diaphoresis, change in sleep pattern, daytime sleepiness or snoring Eyes: Denies: change in vision, blurry vision, photophobia, eye discomfort or eye discharge ENMT: Denies: throat pain, enlarged tonsils, hoarseness, mouth pain, oral sores, dry mouth, tinnitus, nasal congestion or post nasal drip Card: Denies: chest pain, palpitations, irregular heart rhythm, edema, swelling of feet/ankles, lightheadedness, syncope, pre-syncope, dyspnea on exertion, orthopnea, leg pain with exertion or acrocyanosis Resp: Denies: dyspnea, productive cough, non-productive cough, wheezing, stridor, pain on inspiration, change in phlegm color, hemoptysis or chest congestion GI: Denies: abdominal pain, nausea, vomiting, hematemesis, coffee ground emesis, dysphagia, heartburn, diarrhea, constipation, bloating, GI cramping, change in bowel habits, pain on defecation, hematochezia or melena : Denies: flank pain, dysuria, urinary frequency, urinary urgency, urinary hesitancy, nocturia or hematuria Musc: Denies: neck pain, back pain, extremity pain, joint pain, joint sw elling, joint redness, joint stiffness or limited range of motion Neuro: Denies: headache(s), numbness in extremities, weakness in extremities, sensory changes, lack of coordination, difficulty walking, frequent falls, dizziness, vertigo, confusion, Slurred speech present, difficulty communicating thoughts or seizure-like activity Psych: Denies: anxiety, depression, mood swings, panic attacks, hopelessness or irritability Endo: Denies: polyuria, polydipsia, tired all the time, cold intolerance, excessive sweating, flushing or heat intolerance Delfin/Lymph: Denies: easy bruising or easy bleeding All/Imm: Denies: tongue swelling, facial swelling or acute wheezing Medications/Allergies Home Medications Medication Instructions Recorded Confirmed Last Taken Type albuterol sulfate 90 mcg/actuation 2 puff INHALATION QID PRN 02/07/20 05/05/21 04/17/21 History aerosol inhaler (ProAir HFA) amiodarone 200 mg tablet 200 mg PO BID 06/07/20 05/05/21 05/05/21 06:00 History rivaroxaban 15 mg tablet (Xarelto) 15 mg PO DAILY MDD ON HOLD 12/08/20 05/05/21 03/29/21 History ipratropium 0.5 mg-albuterol 3 mg 3 ml INHALATION TID PRN 30 Days 03/19/21 05/05/21 04/17/21 Rx (2.5 mg base)/3 mL nebulization #360 ml soln dexamethasone 4 mg tablet 2 mg PO BID 03/30/21 05/05/21 05/05/21 History clonazepam 0.5 mg tablet 0.5 mg PO TID PRN #90 tab 04/06/21 05/05/21 05/05/21 06:00 Rx trazodone 50 mg tablet 50 mg PO BEDTIME PRN 04/17/21 05/05/21 Unknown History oxycodone 10 mg tablet 10 mg PO Q4H PRN 05/05/21 05/05/21 05/05/21 06:00 History Allergies Allergy/AdvReac Type Severity Reaction Status Date / Time morphine AdvReac Severe ALGY-Rash Verified 05/05/21 14:04 PFSH Acute PFSH: Medical History (Updated 05/05/21 @ 16:21 by Clay Isabel MD) Acute respiratory failure Adenocarcinoma, lung Brain metastasis COPD (chronic obstructive pulmonary disease) Hyponatremia Lung cancer Lung mass Osteoarthritis of left knee Panic disorder [episodic paroxysmal anxiety] Port-A-Cath in place 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 Surgical History (Updated 05/05/21 @ 16:14 by Clay Isabel MD) Hx of cholecystectomy S/P bronchoscopy Family History Other CAD (coronary artery disease) Cancer Dementia Hypertension Lung disease Stroke Denies family history of Diabetes Hyperlipidemia Chronic kidney disease (CKD) Family history of premature coronary artery disease Social History Quit status (tobacco): has quit using tobacco Year quit tobacco: 2020 Smoking risk assessment/counseling performed?: Yes Tobacco counseling given: counseling >3 minutes Alcohol intake: current Alcohol intake frequency: few times a month Alcohol type: beer Counseling given: No Counseling given: No Lives independently: Yes Household members: family Marital status: Current occupational status: retired History of recent travel: No Current gender identity: Female Vitals/I&O/Wt Last Vital Signs Temp 98.7 F 05/05/21 10:59 Pulse 87 05/05/21 15:58 Resp 17 05/05/21 12:31 BP 136/93 05/05/21 15:58 Pulse Ox 94 05/05/21 15:58 05/05/21 05/05/21 05/05/21 06:59 14:59 22:59 Intake Total 50.25 / 50.25 Balance 50.25 / 50.25 Weight last 48 hrs Weight 58.967 kg Physical Exam Narrative: EXAM NARRATIVE: General: No acute distress, AO x3, chronically ill-appearing, frail, pallor present HEENT: PERRLA, pupils bilaterally equal and reactive Chest: Bilateral bronchial breath sounds, decreased air entry in right upper zone with tympany present, coarse crackles present dispersed all over the lung griffiths otherwise equal good air entry bilaterally CVS: S1-S2 irregularly irregular, no murmurs, no tachycardia, no gallops, no rubs Abdomen: Soft, nontender, no organomegaly, bowel sounds present Neuro: No focal deficits, no facial deformity, AO x3, power 5/5 in all limbs Data : 05/05/21 09:50 05/05/21 09:50 A&P Assessment and plan (1) Chest pain: Status: Acute Qualifiers: Chest pain type: unspecified Qualified Code(s): R07.9 - Chest pain, unspecified (2) NSTEMI (non-ST elevated myocardial infarction): Status: Acute (3) Adenocarcinoma, lung: Status: Acute Qualifiers: Laterality: right Qualified Code(s): C34.91 - Malignant neoplasm of unspecified part of right bronchus or lung (4) Brain metastasis: Status: Acute (5) Superior vena cava thrombosis: Status: Acute (6) Atrial flutter with rapid ventricular response: Status: Acute (7) Pulmonary venous thrombosis: Status: Acute (8) Pneumonia: Status: Suspected Plan Chest pain: Non-ST elevation PR: EKG results appreciated. Positive delta troponin. Most likely chest pain is secondary to non-ST elevation PR but given history of severe vena cava thrombosis along with pulmonary vein thrombosis cannot rule out progression or PE. Check HbA1c, lipid panel, continue with troponin cycle and EKG. Check CTA To rule out progression of thrombosis versus PE. Check echocardiogram. Depending on the results of echocardiogram most likely will plan for cardiac angiogram going ahead and rehospitalization. Continue with nitro drip started in the ER. We will start on heparin drip 12 hours after last Xarelto dose which would be in the evening. Cardiology consulted. Aspirin 325 mg stat followed by 81 mg daily, atorvastatin 40 mg daily. Adenocarcinoma of lung with metastasis to brain: Follows up with Dr. Almeida. Wants to continue treatment. Post whole brain radiation. Continue with home dose of dexamethasone. COPD: Not in exacerbation. History of superior vena cava thrombosis/pulmonary vein thrombosis: CTA as above. Heparin drip as above. For now hold off on Xarelto. History of atrial fibrillation: Currently rate controlled. Continue with home dose of amiodarone. DuoNebs every 6 hour, budesonide twice daily. No exacerbation currently hold off on additional steroids. Cannot rule out pneumonia. CTA to look for consolidation. For now check sputum culture, flu swab, rapid COVID-19 antigen, procalcitonin, proBNP, MRSA swab, CRP. For now start on vancomycin and Zosyn. Will de- escalate rapidly as suspicion of pneumonia is low for now. Check Iron panel, TSH. CODE STATUS: Discussed in detail with the patient. She wants to be full code. She wants to continue treatment for cancer as an outpatient. She has even been offered hospice by Dr. Almeida in the past but wants to continue the treatment plan for now.She is agreeable for cardiac catheterization if needed. Protonix for PUD prophylaxis. Cardiac diet. 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
[2021-05-05] MEDS: iohexol 350 mg/mL 100 mL Btl IV (16:26)
[2021-05-05] MEDS: aspirin 325 mg EC Tablet PO (16:53)
[2021-05-05] MEDS: atorvastatin 40 mg Tablet PO (16:54)
--- NOTE | 2021-05-05 16:54 | ECG_ITS ---
[facility] Test Date: 2021-05-05 Pat Name: Iram Denis Department: Room: 108 Gender: Female Superintendent Tests: : 1955 Requested By: Aubrey Cano Order Number: [id number] Titus MD: Jil Cooley M.D. Measurements Intervals [place] Rate: 87 P: 59 DC: 172 QRS: 60 QRSD: 98 T: 83 QT: 388 QTc: 468 Interpretive Statements SINUS RHYTHM POSSIBLE LEFT ATRIAL ENLARGEMENT [-0.1mV P-WAVE IN V1/V2] LOW QRS VOLTAGE IN EXTREMITY LEADS [QRS DEFLECTION < 0.5 mV IN LIMB LEADS] ST ELEVATION CONSISTENT WITH INJURY, PERICARDITIS, OR EARLY REPOLARIZATION ST DEVIATION AND MODERATE T-WAVE ABNORMALITY, CONSIDER LATERAL ISCHEMIA Compared to ECG 05/05/2021 13:26:42 ST (T wave) deviation now present Early repolarization now present T-wave abnormality now present Possible ischemia now present Myocardial infarct finding no longer present Electronically Signed On 05-05-2021 22:04:54 DOWELER by Jil Cooley M.D. [id number]
[2021-05-05 16:58] LABS: Troponin 5 6HR 153.4 ng/L (0-10); Troponin 5 6HR Delta 128.4 ng/L (0-12)
[2021-05-05 17:08] LABS: Influenza A by IFA Negative (Negative); Influenza B by IFA Negative (Negative); SARS Covid-2 Antigen Negative (Negative)
[2021-05-05] MEDS: vancomycin 750 MG in sodium chloride 0.9% 250 ML 250 MG IV (17:46)
[2021-05-05] MEDS: dexamethasone 4 mg Tablet 2 MG PO (17:54)
[2021-05-05] MEDS: ferrous gluconate 324 mg Tablet PO (17:55)
[2021-05-05] MEDS: amiodarone 200 mg Tablet PO (17:55)
[2021-05-05] MEDS: FUROsemide 10 mg/mL SDV 4mL 40 MG IVP (17:56)
[2021-05-05] MEDS: heparin drip 25,000 UNIT/500 ML PREMIX 18 UNIT IV (19:53)
[2021-05-05] MEDS: ipratropium-albuterol 3 mL Neb INHALATION (20:39)
[2021-05-05] MEDS: budesonide 0.5 mg/2 mL Neb INHALATION (20:39)
--- NOTE | 2021-05-05 20:47 | P.CONIM_ITS ---
Providers/Reason For Consult Consulting Physician/Specialty*: ROCKY Godoy MD/cardiology Reason for Consult*: Chest pain/elevated troponin T Requesting Physician: Dr. Isabel Attending Physician: Clay Isabel MD Primary Care Provider: Jayna Schmitt MD History of Present Illness History of Present Illness Iram Denis is a 66 year old female with a history of atrial fibrillation, metastatic lung CA, status post chemo and radiation treatment, is now presenting with complaints of chest pain since this morning. 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 She just finished the chemo and radiation treatment to the lung lesion and also to the brain lesions. She was supposed to start on immunotherapy today. She started having chest pain around 4:00 this morning. She describes the pain as a pressure-like feeling in the upper substernal region. She has associated shortness of breath. Her pain lasted for several hours. She initially was seen in the [facility]. Because of her chest pain, she was brought to the emergency room. In the emergency room, she was given sublingual nitro and also was started on IV nitro. Her chest pain started subsiding. Currently at the time of examination, she is pain-free. The total episode might have lasted for 8 to 10 hours. She has no previous history for coronary disease, myocardial infarction or congestive heart failure. She was diagnosed with atrial fibrillation last year. She has metastatic adenocarcinoma of the lung. She has recurrent right-sided pleural effusion. Currently she has a drainage tube on the right side. 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 She is on long-term oral anticoagulation with Xarelto. Medications/Allergies Home Medications Medication Instructions Recorded Confirmed Last Taken Type albuterol sulfate 90 mcg/actuation 2 puff INHALATION QID PRN 02/07/20 05/05/21 04/17/21 History aerosol inhaler (ProAir HFA) amiodarone 200 mg tablet 200 mg PO BID 06/07/20 05/05/21 05/05/21 06:00 History rivaroxaban 15 mg tablet (Xarelto) 15 mg PO DAILY MDD ON HOLD 12/08/20 05/05/21 03/29/21 History ipratropium 0.5 mg-albuterol 3 mg 3 ml INHALATION TID PRN 30 Days 03/19/21 05/05/21 04/17/21 Rx (2.5 mg base)/3 mL nebulization #360 ml soln dexamethasone 4 mg tablet 2 mg PO BID 03/30/21 05/05/21 05/05/21 History clonazepam 0.5 mg tablet 0.5 mg PO TID PRN #90 tab 04/06/21 05/05/21 05/05/21 06:00 Rx trazodone 50 mg tablet 50 mg PO BEDTIME PRN 04/17/21 05/05/21 Unknown History oxycodone 10 mg tablet 10 mg PO Q4H PRN 05/05/21 05/05/21 05/05/21 06:00 History Allergies Allergy/AdvReac Type Severity Reaction Status Date / Time morphine AdvReac Severe ALGY-Rash Verified 05/05/21 14:04 Current Medications Generic Name Dose Route Start Last Admin Trade Name Freq PRN Reason Stop Dose Admin Amiodarone HCl 200 mg 05/05/21 18:00 05/05/21 17:55 Amiodarone 200 Mg Tablet PO 200 mg BID ANA MARÍA Administration Dexamethasone 2 mg 05/05/21 18:00 05/05/21 17:54 Dexamethasone 4 Mg Tablet PO 2 mg BID ANA MARÍA Administration Ferrous Gluconate 324 mg 05/05/21 18:00 05/05/21 17:55 Ferrous Gluconate 324 Mg Tablet PO 324 mg BIDWM ANA MARÍA Administration Nitroglycerin/Dextrose 50 mg in 250 mls @ 0 mls/hr 05/05/21 13:15 05/05/21 19:38 Nitroglycerin Drip IV 28.3 mcg/min .Q0M ANA MARÍA 8.49 mls/hr Titration Protocol Per Protocol Heparin Sodium/Sodium Chloride 25,000 unit in 500 mls @ 0 mls/hr 05/05/21 14:15 05/05/21 19:53 Heparin Drip IV 15.26 unit/kg/hr .Q0M ANA MARÍA 18 mls/hr Administration Protocol Per Protocol Vancomycin HCl 750 mg/ Sodium 250 mls @ 250 mls/hr 05/05/21 16:00 05/05/21 19:42 Chloride IV Infused Q12H ANA MARÍA Infusion Protocol PFSH Acute PFSH: Medical History Acute respiratory failure Adenocarcinoma, lung Brain metastasis COPD (chronic obstructive pulmonary disease) Hyponatremia Lung cancer Lung mass Osteoarthritis of left knee Panic disorder [episodic paroxysmal anxiety] Port-A-Cath in place 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 Surgical History Hx of cholecystectomy S/P bronchoscopy Family History Other CAD (coronary artery disease) Cancer Dementia Hypertension Lung disease Stroke Denies family history of Diabetes Hyperlipidemia Chronic kidney disease (CKD) Family history of premature coronary artery disease Social History Quit status (tobacco): has quit using tobacco Year quit tobacco: 2020 Smoking risk assessment/counseling performed?: Yes Tobacco counseling given: counseling >3 minutes Alcohol intake: current Alcohol intake frequency: few times a month Alcohol type: beer Counseling given: No Counseling given: No Lives independently: Yes Household members: family Marital status: Current occupational status: retired History of recent travel: No Current gender identity: Female Vitals/I&O/Wt Last Vital Signs Temp 97.4 F L 05/05/21 19:40 Pulse 88 05/05/21 19:40 Resp 17 05/05/21 19:40 BP 97/73 05/05/21 19:40 Pulse Ox 96 05/05/21 19:40 05/05/21 05/05/21 05/05/21 06:59 14:59 22:59 Intake Total 50.25 / 50.25 305.667 / 355.917 Balance 50.25 / 50.25 305.667 / 355.917 Weight last 48 hrs Weight 130 lb Physical Exam Narrative: EXAM NARRATIVE: GENERAL: The patient is alert and oriented times three. Not in any acute di stress. Somewhat withdrawn HEENT: Moderate pallor, no icterus..Oral cavity: There are no mucous membrane lesions. NECK: Trachea appears to be central. No masses noted. No JVD or thyromegaly appreciated. RESPIRATORY: Chest is symmetrical. No intercostals muscle retraction or any accessory muscle activation. There is some chest wall tenderness, anteriorly Breath sounds are heard bilaterally. scattered coarse crackles. Diminished intensity of breath sounds right base. BREASTS: Deferred. HEART: The heart sounds are normal. No S3 or S4. No significant murmurs. No pericardial rub ABDOMEN: No vessel pulsations or distention. No tenderness. No organomegaly appreciated. Bowel sounds are normally heard. : Deferred. RECTAL: Deferred. LYMPHATIC: No lymphadenopathy noted in the neck or groin. EXTREMITIES: No significant edema or cyanosis. Peripheral pulses are palpable but weak bilaterally MUSCULOSKELETAL: No acute joint deformities or swelling SKIN: There are no significant rashes or ecchymosis NEUROPSYCHIATRIC: The patient is alert and oriented x3. Appears to be in a good mood. No tremors or rigidity noted. Data : 05/06/21 01:08 05/06/21 01:08 Other Labs: Laboratory Last Values WBC 16.2 10^3/uL (4.0-10.0) H 05/05/21 09:50 RBC 4.30 10^6/uL (4.1-5.3) 05/05/21 09:50 Hgb 11.9 g/dL (11.5-15.3) 05/05/21 09:50 Hct 37.2 % (37.0-47.0) 05/05/21 09:50 MCV 86.5 fl (81-99) 05/05/21 09:50 MCH 27.7 pg (28.0-34.0) L 05/05/21 09:50 MCHC 32.0 g/dL (30.0-36.0) 05/05/21 09:50 RDW 17.5 % (12.1-15.1) H 05/05/21 09:50 Plt Count 341 10^3/cmm (130-400) 05/05/21 09:50 MPV 8.8 fL (7.4-10.4) 05/05/21 09:50 Neut % (Auto) 87.5 % 05/05/21 09:50 Lymph % (Auto) 1.9 % 05/05/21 09:50 [place] % (Auto) 7.7 % 05/05/21 09:50 Eos % (Auto) 0.1 % 05/05/21 09:50 Baso % (Auto) 0.2 % 05/05/21 09:50 Neut # (Auto) 14.21 10^3/uL (1.8-7.7) H 05/05/21 09:50 Lymph # (Auto) 0.3 10^3/uL (0.8-4.8) L 05/05/21 09:50 [place] # (Auto) 1.3 10^3/uL (0.2-0.9) H 05/05/21 09:50 Eos # (Auto) 0.0 10^3/uL (0.0-0.8) 05/05/21 09:50 Baso # (Auto) 0.0 10^3/uL (0.0-0.1) 05/05/21 09:50 Nucleated RBC % (auto) 0 % 05/05/21 09:50 Nucleated RBCs # 0.0 /100WBC 05/05/21 09:50 Sodium 131 mmol/L (136-145) L 05/05/21 09:50 Potassium 4.8 mmol/L (3.5-5.1) 05/05/21 09:50 Chloride 94 mmol/L (98-107) L 05/05/21 09:50 Carbon Dioxide 26 mmol/L (22-29) 05/05/21 09:50 Anion Gap 15.8 (5-19) 05/05/21 09:50 BUN 28 mg/dL (8-23) H 05/05/21 09:50 Creatinine 0.6 mg/dL (0.5-0.9) 05/05/21 09:50 GFR Calculation 99.7 mL/min (90-130) 05/05/21 09:50 Glucose 114 mg/dL (65-115) 05/05/21 09:50 Calculated Osmolality 278 mOsm/kg (285-295) L 05/05/21 09:50 Calcium 8.4 mg/dL (8.5-10.5) L 05/05/21 09:50 Iron 24 ug/dL (37-145) L 05/05/21 11:59 TIBC 197 mcg/dl 05/05/21 11:59 % Saturation 12.1 % (20-50) L 05/05/21 11:59 Unsat Iron Binding 173 ug/dL (112-347) 05/05/21 11:59 Total Bilirubin 0.3 mg/dL (0.15-1.2) 05/05/21 09:50 AST 32 U/L (0-32) 05/05/21 09:50 ALT 73 U/L (0-33) H 05/05/21 09:50 Alkaline Phosphatase 161 IU/L (35-105) H 05/05/21 09:50 Creatine Kinase 20 U/L (26-192) L 05/05/21 09:50 Troponin T Baseline 25 ng/L (0-10) H 05/05/21 09:50 Troponin T 120 Minute 98.31 ng/L (0-10) H 05/05/21 11:59 Delta Troponin T 73.31 ABS# (0-10) H* 05/05/21 11:59 Troponin T Hi Sens 6Hr 153.4 ng/L (0-10) H 05/05/21 16:12 Troponin T Hi Sens 6Hr Delta 128.4 ng/L (0-12) H* 05/05/21 16:12 C-Reactive Protein 59.3 mg/L (0.0-4.9) H 05/05/21 11:59 NT-Pro-B Natriuret Pep 727 pg/mL (0-125) H 05/05/21 11:59 Total Protein 5.4 g/dL (6.6-8.7) L 05/05/21 09:50 Albumin 3.3 g/dL (3.5-5.2) L 05/05/21 09:50 Globulin 2.1 g/dL (1.3-4.6) 05/05/21 09:50 Procalcitonin 0.12 ng/mL (0-0.5) 05/05/21 11:59 TSH 1.88 uIU/mL (0.27-4.20) 05/05/21 11:59 Urine Color Yellow (Yellow) 05/05/21 11:35 Urine Appearance Clear (CLEAR) 05/05/21 11:35 Urine pH 5 (5-7) 05/05/21 11:35 Ur Specific [place] 1.020 (1.005-1.030) 05/05/21 11:35 Urine Protein Neg (Negative) 05/05/21 11:35 Urine Glucose (UA) Norm (Normal) 05/05/21 11:35 Urine Ketones Negative (Negative) 05/05/21 11:35 Urine Blood 3+ (Negative) H 05/05/21 11:35 Urine Nitrate Negative (Negative) 05/05/21 11:35 Urine Bilirubin Neg (Negative) 05/05/21 11:35 Urine Urobilinogen 1 mg/dL (Negative) H 05/05/21 11:35 Ur Leukocyte Esterase Trace (Negative) H 05/05/21 11:35 Urine RBC 5-10 /hpf (0-2) H 05/05/21 11:35 Urine WBC 5-10 /hpf (0-5) H 05/05/21 11:35 Ur Squamous Epith Cells 10-15 /hpf (0-5) H 05/05/21 11:35 Amorphous Sediment Not Reportable 05/05/21 11:35 Urine Bacteria 1+ /hpf (NONE) H 05/05/21 11:35 Hyaline Casts 0-4 /lpf H 05/05/21 11:35 Urine Mucus 2+ /hpf 05/05/21 11:35 Coronavirus 229E (PCR) Not detected (NOT DETECT) 05/05/21 Unknown Influenza Type A Ag Negative (Negative) 05/05/21 15:54 Influenza Type B Ag Negative (Negative) 05/05/21 15:54 SARS-CoV-2 (PCR) Not detected (NOT DETECT) 05/05/21 Unknown SARS-CoV-2 RNA (RT-PCR) Cancelled 05/05/21 12:33 SARS-CoV-2 Ag (Rapid) Negative (Negative) 05/05/21 15:54 Micro: Microbiology 05/05/21 11:35 Legionella Urinary Antigen - Final Urethra EKG 1: My Interpretation: The EKG showed a sinus rhythm with possible biatrial enlargement. ST elevations in lead V2, V3 and V4 suggesting of acute myocardial injury involving the anterolateral wall. Low QRS complexes in the limb leads. Compared to the previous EKG at 1326, the ST elevations in the anterolateral leads appears to be more prominent EKG computer-generated impression: Chest X-Ray 05/05/21 10:54 Impression: 1. No change in right apical opacity and right lower lobe opacity with minimal aeration. 2. No change in right PICC line and right basilar chest tube. Chest CTA 05/05/21 15:01 IMPRESSION: 1. Proximal main pulmonary arteries are normal. No evidence of pulmonary embolus. 2. Similar-appearing right hilar and suprahilar mass with narrowing of the right mainstem bronchus and right upper lobe collapse. This is similar to the prior examinations. 3. Right pleural drain with moderate right pleural effusion. 4. Improved aeration of the super segment right lower lobe compared to previous. 5. Left lower lobe opacity previously described has resolved. A&P Assessment and plan (1) NSTEMI (non-ST elevated myocardial infarction): Patient may be treated with IV heparin, nitrates, beta-viri, aspirin and Plavix. The Xarelto may be held at this point. Echocardiogram would be helpful to evaluate the LV function and rule out any other pathology. I may go ahead and give Plavix 300 mg p.o. now followed by 75 mg p.o. daily. Status: Acute (2) Adenocarcinoma, lung: Patient has metastatic adenocarcinoma of the lung mets to the brain. Status post chemo and radiation treatment. Management as per the oncology service Status: Acute Qualifiers: Laterality: right Qualified Code(s): C34.91 - Malignant neoplasm of unspecified part of right bronchus or lung (3) Brain metastasis: Has no bleeding complications Status: Acute (4) Pulmonary venous thrombosis: IV anticoagulation for the time being. Status: Acute (5) Atrial fibrillation/flutter: Patient has a history of intermittent atrial fibrillation/flutter. Currently she is in sinus rhythm. May continue on the current medications. Status: Acute Plan After reviewing the echocardiogram and also based on the patient's clinical progress, further recommendations will be made. Thank you for the opportunity to eval this patient make these recommendations Consult Attestations Medical Necessity Statement: Patient requires continued hospital stay for close monitoring and further management Coding Level of Care Code Acute Flagger for Barbara Cruz History Detailed Exam Detailed Medical Decision Making High Complexity Diagnoses NSTEMI (non-ST elevated myocardial infarction) I21.4 Adenocarcinoma, lung C34.91 Laterality: right Brain metastasis C79.31 Pulmonary venous thrombosis I26.99 Atrial fibrillation/flutter
[2021-05-05] MEDS: piperacillin-tazobactam 3.375 GM in sodium chloride 0.9% (plus) 50 ML IV (21:22)
--- NOTE | 2021-05-05 22:22 | PC.NURSE ---
Admit Note Patient admitted to [facility] from ED via stretcher. Covering service notified. Patient presents with chest pain, sob. Orders reviewed & will continue to monitor. Patient and/or medical detail representative oriented to environment, equipment, and informed of the following as found in the admission booklet: patient rights & responsibilities, visitor policy, hand and respiratory hygiene practice. Other education includes: Activity orders, oxygen safety, telemetry. Patient and/or medical detail representative verbalized understanding of all teaching.
[2021-05-05] MEDS: clopidogrel 300 mg Tablet PO (23:10)
--- NOTE | 2021-05-05 23:57 | PC.NURSE ---
Around 1929: Patient c/o sob, weakness. Patient received lasix prior to admission to [facility]. Notified Dr. Amor, Hospitalist. Orders received to insert Medina catheter. Around 2129: Received orders from Dr. Godoy, Electroneurodiagnostic Technologist. See MAR.
[2021-05-06] VITALS (28 sets, daily range): BP systolic 83–121; BP diastolic 56–78; PULSE 63–107; RESP 14–35; TEMP 36.6–36.9; O2SAT 90–98
[2021-05-06] MEDS: CLONazepam 0.5 mg Tablet PO ×2 (00:42→07:07)
[2021-05-06] MEDS: piperacillin-tazobactam 3.375 GM in sodium chloride 0.9% (plus) 50 ML IV ×3 (00:43→18:06)
[2021-05-06 01:17] LABS: Basophils % 0.1 %; Hematocrit 34.6 % (37.0-47.0); Hemoglobin 11.1 g/dL (11.5-15.3); Lymphocytes # 0.2 10^3/uL (0.8-4.8); Lymphocytes % 2.3 %; Mean Corpuscular HGB Conc 32.1 g/dL (30.0-36.0); Mean Corpuscular Hemoglobin 27.4 pg (28.0-34.0); Mean Corpuscular Volume 85.4 fl (81-99); Mean Platelet Volume 8.8 fL (7.4-10.4); Monocytes # 0.4 10^3/uL (0.2-0.9); Monocytes % 3.6 %; Neutrophils # 9.52 10^3/uL (1.8-7.7); Neutrophils % 90.5 %; Nucleated Red Blood Cells % 0 %; Platelet Count 310 10^3/cmm (130-400); Red Blood Count 4.05 10^6/uL (4.1-5.3); Red Cell Distribution Width 17.5 % (12.1-15.1); White Blood Count 10.5 10^3/uL (4.0-10.0)
[2021-05-06 01:40] LABS: Troponin T (5th) Once 118 ng/L (0-10)
[2021-05-06 01:41] LABS: Alanine Aminotransferase 67 U/L (0-33); Alkaline Phosphatase 131 IU/L (35-105); Anion Gap 16.9 (5-19); Aspartate Amino Transferase 24 U/L (0-32); Blood Urea Nitrogen 23 mg/dL (8-23); Calcium 8.9 mg/dL (8.5-10.5); Carbon Dioxide 26 mmol/L (22-29); Chloride 96 mmol/L (98-107); Creatinine Clr Calc Pharmacy 65.2038; Globulin 2.3 g/dL (1.3-4.6); Glomerular Filtration Rate 99.7 mL/min (90-130); Glucose 119 mg/dL (65-115); Magnesium 1.8 mg/dL (1.7-2.3); Osmolality Calculated 285 mOsm/kg (285-295); Phosphorus 4.2 mg/dL (2.5-4.5); Potassium 3.9 mmol/L (3.5-5.1); Sodium 135 mmol/L (136-145); Total Bilirubin 0.3 mg/dL (0.15-1.2); Total Protein 5.3 g/dL (6.6-8.7)
[2021-05-06 02:27] LABS: Chol HDL Ratio 3.54 mg/dL (0.0-4.40); Cholesterol 184 mg/dL (0-200); HDL Cholesterol 52 mg/dL (60-100); LDL Cholesterol Calculated 111 mg/dL (50-129); Triglycerides 106 mg/dL (0-150); VLDL Cholestrol Calculation 21 mg/dL (0-30)
[2021-05-06] MEDS: heparin 5,000 unit/mL INJ 1 mL IV (02:40)
[2021-05-06] MEDS: ipratropium-albuterol 3 mL Neb INHALATION ×4 (02:57→22:49)
[2021-05-06] MEDS: budesonide 0.5 mg/2 mL Neb INHALATION ×2 (08:19→22:49)
[2021-05-06] MEDS: dexamethasone 4 mg Tablet 2 MG PO ×2 (10:17→18:07)
[2021-05-06] MEDS: ferrous gluconate 324 mg Tablet PO ×2 (10:17→18:07)
[2021-05-06] MEDS: amiodarone 200 mg Tablet PO ×2 (10:18→18:07)
[2021-05-06] MEDS: aspirin 81 mg EC Tablet PO (10:18)
[2021-05-06] MEDS: clopidogrel 75 mg Tablet PO (10:19)
[2021-05-06] MEDS: pantoprazole DR 40 mg Tablet PO (10:19)
--- NOTE | 2021-05-06 10:22 | PC.CHAP ---
Pastoral Care Encounter/Spiritual Assessment Type of Contact [] Declined paper reclaiming machine operator visit [] Patient/Family/Request visit [] Outpatient visit [] Follow-up visit [] Physician referral [] Code/Alert [x] Routine visit [] Staff referral [] Actively dying [] Patient sleeping [] Family support [] [] Out of room [] Palliative care [] [] Receiving care in room [] Pre-surgical visit [] Trauma [] Long length of stay [] ICU visit [] Other: Relational/Emotional Strength [] Patient feels connected with others/family/visitors/staff [] Distress [] Loneliness/isolation [] Abandonment Spirituality of Patient [] Person of Radha [] Attends Taoist of their Radha [] Believes in Prayer [] Reads Bible or Congregation materials [] There are Spiritual issues to be addressed R D Engineer Interventions [x] Prayer [x] Active listening [x] Non-anxious presence [x] Spiritual/emotional support [] Crisis/trauma care [] Spiritual counseling [] Bereavement support [] Provided bereavement packet [] Provided Bible/devotional materials [] Provided toy/stuffed animal, coloring book to patient or family member [] Provided Communion [] Anointing/[place] [] Salvation [x] Completed spiritual assessment [] Other: Impact on Illness or Injury [] Angry [] Fearful [] Anxious [] Often cries [] Exhaustion [] Unable to work [] Unable to attend mandaeism [] Unable to walk/stand [] Unable to read [] Unable to drive [] Unable to eat/drink [] Unable to sleep [] Unable to be with family [] Patient intubated [] Other: Summary helped patient with breakfast.. patient is comfortable Time spent with patient 10 min
[2021-05-06 11:35] LABS: Partial Thromboplastin Time 48.4 SECONDS (23.9-36.7)
[2021-05-06] MEDS: FUROsemide 10 mg/mL SDV 4mL 40 MG IVP (14:16)
[2021-05-06] MEDS: enoxaparin 60 mg/0.6 mL Syringe SUBCUT (15:29)
[2021-05-06] MEDS: vancomycin 750 MG in sodium chloride 0.9% 250 ML 250 MG IV (16:04)
--- NOTE | 2021-05-06 16:46 | PM.PN ---
Subjective Subjective: Interval history: No complaints overnight. On examination seen with family at bedside. Complains of breathlessness last night. Denies any active chest pain. Stop nitro drip last night because of low blood pressures. Denies any nausea, vomiting, headache. Had a long discussion with patient regarding goals of care. She wants to continue remaining full code. He want to continue pursuing treatment for cancer as an outpatient. Discussed that if he wants to pursue all other treatment then she should also think about cardiac angiogram because given low EF, regional wall motion normality, non-ST elevation GA it is highly proven that she gets revascularization as that can also cause her to diet. Patient verbalized understanding and states is okay with cardiac angiogram going forward. Vitals/I&O/Wt Last Vital Signs Temp 98.5 F 05/06/21 15:50 Pulse 88 05/06/21 15:50 Resp 18 05/06/21 15:50 BP 84/57 05/06/21 15:50 Pulse Ox 96 05/06/21 15:50 05/06/21 05/06/21 05/06/21 06:59 14:59 22:59 Intake Total 217.710 / 888.725 629.9 / 629.9 Output Total 450 / 1050 Balance -232.290 / -161.275 629.9 / 629.9 Weight last 48 hrs Weight 62.823 kg Weight 62.369 kg Weight 58.967 kg Physical Exam Narrative: EXAM NARRATIVE: General: No acute distress, AO x3, chronically ill-appearing, frail, pallor present HEENT: PERRLA, pupils bilaterally equal and reactive Chest: Bilateral bronchial breath sounds, decreased air entry in right upper zone with tympany present, coarse crackles present dispersed all over the lung griffiths otherwise equal good air entry bilaterally, decreased air entry right lower zone CVS: S1-S2 irregularly irregular, no murmurs, no tachycardia, no gallops, no rubs Abdomen: Soft, nontender, no organomegaly, bowel sounds present Neuro: No focal deficits, no facial deformity, AO x3, power 5/5 in all limbs Urinary Catheter Management: Medina Latex: Cath Placed During This Visit: yes Reason for Continuing Indwelling Catheter: Accurate Measurement of Urinary Output in Critically Ill Patients Urinary Catheter Date of Insertion: 05/05/21 Urinary Catheter Time of Insertion: 19:30 Data : 05/06/21 01:08 05/06/21 01:08 Micro: Microbiology 05/05/21 11:35 Bacterial Antigens - Final Urine Kidney 05/05/21 11:35 Legionella Urinary Antigen - Final Urethra A&P Assessment and plan (1) Chest pain: Status: Acute Qualifiers: Chest pain type: unspecified Qualified Code(s): R07.9 - Chest pain, unspecified (2) NSTEMI (non-ST elevated myocardial infarction): Status: Acute (3) Shortness of breath: Status: Acute (4) Atrial flutter with rapid ventricular response: Status: Acute (5) Superior vena cava thrombosis: Status: Acute (6) Pulmonary venous thrombosis: Status: Acute (7) Pneumonia: Status: Suspected (8) Adenocarcinoma, lung: Status: Acute Qualifiers: Laterality: right Qualified Code(s): C34.91 - Malignant neoplasm of unspecified part of right bronchus or lung (9) Brain metastasis: Status: Acute Plan Chest pain: Non-ST elevation GA: EKG results appreciated. Positive delta troponin. Most likely chest pain is secondary to non-ST elevation GA but given history of severe vena cava thrombosis along with pulmonary vein thrombosis cannot rule out progression or PE. Lipid panel results appreciated. Positive delta troponins. CTA ruled out pulmonary embolism. Echocardiogram results appreciated for EF of 23%, grade 1 diastolic dysfunction, regional wall motion normality with diffuse hypokinesia of the mid and apical inferior lateral wall segment, apex. Switch from heparin drip to Lovenox 1 mg/kg body weight every 12 hourly. Continue with aspirin, Plavix, statin. Shortness of breath: Currently on 4 L which is her home oxygen requirement. Most likely a combination of pleural effusion, congestive heart failure, malignancy. Less likely secondary to pneumonia. Flu swab, COVID-19 negative. MRSA swab negative. Sputum culture results awaited. Stop vancomycin continue with Zosyn.If patient remains hemodynamically stable and afebrile for next 24 hours will discontinue antibiotics. IV Lasix 40 mg once. Strict input output charting, daily weights. Fluid restriction up to 1500 cc. DuoNebs every 6 hour, budesonide twice daily. We will drain pleural fluid through [place] drain in situ. Chest x-ray post drain. Adenocarcinoma of lung with metastasis to brain: Follows up with Dr. Almeida. Wants to continue treatment. Post whole brain radiation. Continue with home dose of dexamethasone. COPD: Not in exacerbation. History of superior vena cava thrombosis/pulmonary vein thrombosis: CTA as above. Anticoagulation as above. CODE STATUS: Discussed in detail with the patient. She wants to be full code. She wants to continue treatment for cancer as an outpatient. She has even been offered hospice by Dr. Almeida in the past but wants to continue the treatment plan for now.She is agreeable for cardiac catheterization if needed. Protonix for PUD prophylaxis. Cardiac diet. Attestations Medical Necessity Statement*: Requires further hospitalization for management of non-ST elevation GA, shortness of breath 2/2 congestive heart failure, right pleural effusion, malignancy Time Spent in Patient Care: Greater than 35 minutes Coding Level of Care Code Acute Mineral Technologist for debra Banuelosd Diagnoses Chest pain R07.9 Chest pain type: unspecified NSTEMI (non-ST elevated myocardial infarction) I21.4 Adenocarcinoma, lung C34.91 Laterality: right Brain metastasis C79.31 Superior vena cava thrombosis I82.210 Atrial flutter with rapid ventricular response I48.92 Pulmonary venous thrombosis I26.99 Pneumonia J18.9 Shortness of breath R06.02
--- NOTE | 2021-05-06 19:06 | P.PN_ITS ---
Subjective Subjective: Interval history: Patient is feeling okay. She had echocardiogram done yesterday which revealed an LV ejection fraction of 23%. Severe diffuse hypokinesia of the LV apex with some features of apical ballooning. Patient has no chest pain. As some shortness of breath with activities. She was found to have features of congestive heart failure. She responded appropriately to diuretics. Medications: Medication Review Details: Current Medications Acetaminophen (Acetaminophen 325 Mg Tablet) 650 mg PO Q6H PRN PRN Reason: Mild/Mod Pain Or Temp >/= 101 Albuterol Sulfate (Albuterol 2.5 Mg/0.5 Ml Neb) 2.5 mg INHALATION Q4H.RESPIRATORY PRN PRN Reason: SHORTNESS OF BREATH Albuterol/Ipratropium (Ipratropium-Albuterol 3 Ml Neb) 3 ml INHALATION Q6H.RESPIRATORY [facility] Last Admin: 05/06/21 14:40 Dose: 3 ml Documented by: Amiodarone HCl (Amiodarone 200 Mg Tablet) 200 mg PO BID [facility] Last Admin: 05/06/21 18:07 Dose: 200 mg Documented by: Aspirin (Aspirin 81 Mg Ec Tablet) 81 mg PO DAILY [facility] Last Admin: 05/06/21 10:18 Dose: 81 mg Documented by: Bisacodyl (Bisacodyl 5 Mg Tablet) 10 mg PO DAILY PRN; Protocol PRN Reason: Constipation (see protocol) Budesonide (Budesonide 0.5 Mg/2 Ml Neb) 0.5 mg INHALATION BID [facility] Last Admin: 05/06/21 08:19 Dose: 0.5 mg Documented by: Clonazepam (Clonazepam 0.5 Mg Tablet) 0.5 mg PO TID PRN PRN Reason: Anxiety Last Admin: 05/06/21 07:07 Dose: 0.5 mg Documented by: Clopidogrel Bisulfate (Clopidogrel 75 Mg Tablet) 75 mg PO DAILY [facility] Last Admin: 05/06/21 10:19 Dose: 75 mg Documented by: Dexamethasone (Dexamethasone 4 Mg Tablet) 2 mg PO BID [facility] Last Admin: 05/06/21 18:07 Dose: 2 mg Documented by: Enoxaparin Sodium (Enoxaparin 60 Mg/0.6 Ml Syringe) 60 mg SUBCUT Q12H [facility] Last Admin: 05/06/21 15:29 Dose: 60 mg Documented by: Ferrous Gluconate (Ferrous Gluconate 324 Mg Tablet) 324 mg PO BIDWM [facility] Last Admin: 05/06/21 18:07 Dose: 324 mg Documented by: Piperacillin Sod/Tazobactam (Sod 3.375 gm/ Sodium Chloride) 50 mls @ 12.5 mls/hr IV Q8H [facility]; Protocol Last Admin: 05/06/21 18:06 Dose: 12.5 mls/hr Documented by: Sodium Chloride (Sodium Chloride 0.9%) 1,000 mls @ 50 mls/hr IV .Q20H ONE Stop: 05/07/21 14:58 Magnesium Hydroxide (Magnesium Hydroxide 30 Ml Udc) 30 ml PO DAILY PRN; Protocol PRN Reason: Constipation (see protocol) Morphine Sulfate (Morphine 4 Mg/Ml Sdv 1 Ml) 2 mg IVP Q4H PRN PRN Reason: SEVERE PAIN Ondansetron HCl (Ondansetron 2 Mg/Ml Sdv 2 Ml) 4 mg IVP Q6H PRN PRN Reason: NAUSEA AND VOMITING Oxycodone HCl (Oxycodone 5 Mg Ir Tab/Cap) 10 mg PO Q4H PRN PRN Reason: MODERATE PAIN Pantoprazole Sodium (Pantoprazole Dr 40 Mg Tablet) 40 mg PO DAILY [facility] Last Admin: 05/06/21 10:19 Dose: 40 mg Documented by: Trazodone HCl (Trazodone 50 Mg Tablet) 50 mg PO BEDTIME PRN PRN Reason: Sleep Vitals/I&O/Wt Last Vital Signs Temp 98.5 F 05/06/21 15:50 Pulse 88 05/06/21 15:50 Resp 18 05/06/21 15:50 BP 84/57 05/06/21 15:50 Pulse Ox 96 05/06/21 15:50 05/06/21 05/06/21 05/06/21 06:59 14:59 22:59 Intake Total 217.710 / 888.725 679.9 / 679.9 240 / 919.9 Output Total 450 / 1050 2400 / 2400 Balance -232.290 / -161.275 679.9 / 679.9 -2160 / -1480.1 Weight last 48 hrs Weight 138 lb 8 oz Weight 137 lb 8 oz Weight 130 lb Physical Exam Narrative: EXAM NARRATIVE: GENERAL: The patient is alert and oriented times three. Not in any acute distr ess. Somewhat withdrawn HEENT: Moderate pallor, no icterus..Oral cavity: There are no mucous membrane lesions. NECK: Trachea appears to be central. No masses noted. No JVD or thyromegaly appreciated. RESPIRATORY: Chest is symmetrical. No intercostals muscle retraction or any accessory muscle activation. There is some? chest wall tenderness, anteriorly Breath sounds are heard bilaterally. scattered coarse crackles. Diminished intensity of breath sounds right base. BREASTS: Deferred. HEART: The heart sounds are normal.? No S3 or S4. ? No significant murmurs.? No pericardial rub ABDOMEN: No vessel pulsations or distention. No tenderness. No organomegaly appreciated.? Bowel sounds are normally heard. : Deferred. RECTAL: Deferred. LYMPHATIC: No lymphadenopathy noted in the neck or groin. EXTREMITIES: No significant edema or cyanosis. Peripheral pulses are palpable but weak bilaterally MUSCULOSKELETAL: No acute joint deformities or swelling SKIN: There are no significant rashes or ecchymosis NEUROPSYCHIATRIC: The patient is alert and oriented x3. Appears to be in a good mood. No tremors or rigidity noted. Urinary Catheter Management: Medina Latex: Cath Placed During This Visit: yes Reason for Continuing Indwelling Catheter: Accurate Measurement of Urinary Output in Critically Ill Patients Urinary Catheter Date of Insertion: 05/05/21 Urinary Catheter Time of Insertion: 19:30 Data : 05/06/21 01:08 05/06/21 01:08 Other Labs: Echocardiogram from 05/05/2021 Multiple wall motion abnormalities with markedly diminished ?ejection fraction of 23%.? The features may suggest apical ?ballooning syndrome ?Thickened aortic valve. Trace aortic valve regurgitation. ?No intracardiac masses.? No pericardial effusion. ?Normal cardiac chamber sizes. ?Compared to the study from 07/30/2020, there is a marked decline ?in the LV ejection fraction Micro: Microbiology 05/05/21 22:45 Gram Stain - Final Sputum - Expectorated Sputum 05/05/21 15:54 MRSA Culture - Final Nose 05/05/21 11:35 Bacterial Antigens - Final Urine Kidney 05/05/21 11:35 Legionella Urinary Antigen - Final Urethra A&P Assessment and plan (1) NSTEMI (non-ST elevated myocardial infarction): Patient may be continued on the Lovenox, Plavix, aspirin and statin. For further evaluation of her coronary status, a cardiac arrest would be appropriate, especially in view of the severe LV dysfunction. This was discussed with the patient detail with risks and benefits. The risk of bleeding, hematoma, vascular injury, myocardial infarction, CVA, renal failure and other concomitant complications were explained in detail. Patient understood this well and consented to proceed. We may go ahead and schedule this for tomorrow. Status: Acute (2) Ischemic cardiomyopathy: Patient has severe LV systolic dysfunction. Etiology is not clear. A Takotsubo syndrome cannot be occluded. I may start her on spironolactone 25 mg p.o. daily. Also will start her on a low-dose of beta-viri and an ARB, if the blood pressure tolerates. Based on the clinical progress, further management decisions will be made. 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 Status post chemo and radiation treatment. Management as per the oncology service Status: Acute Qualifiers: Laterality: right Qualified Code(s): C34.91 - Malignant neoplasm of unspecified part of right bronchus or lung (4) Brain metastasis: Has no bleeding complications. Currently the patient has no focal neurological deficits Status: Acute (5) Pulmonary venous thrombosis: IV anticoagulation for the time being. Continue on the Lovenox tonight. May hold off on this in the morning. Status: Acute (6) Atrial fibrillation/flutter: Patient has a history of intermittent atrial fibrillation/flutter. Currently she is in sinus rhythm. May continue on the current medications. Status: Acute Plan Based on the patient's clinical progress and the results of the angiogram, further recommendations will be made. Attestations Medical Necessity Statement*: Patient requires continued hospital stay for close monitoring and further management Coding Level of Care Code Acute Imager for g Fwd History Detailed Exam Detailed Medical Decision Making High Complexity Diagnoses NSTEMI (non-ST elevated myocardial infarction) I21.4 Adenocarcinoma, lung C34.91 Laterality: right Brain metastasis C79.31 Pulmonary venous thrombosis I26.99 Atrial fibrillation/flutter Ischemic cardiomyopathy I25.5
[2021-05-06] MEDS: spironolactone 25 mg Tablet PO (20:49)
--- NOTE | 2021-05-06 21:21 | PC.NURSE ---
Received report from MANISHA Zaldivar. Discussed plan for heart cath in the morning. Patient expressed understanding. Patient denies pain or needs presently. No distress observed. Will continue to monitor.
[2021-05-07] VITALS (28 sets, daily range): BP systolic 91–150; BP diastolic 58–96; PULSE 77–101; RESP 15–28; TEMP 36.5; O2SAT 84–100
--- NOTE | 2021-05-07 00:08 | PC.NURSE ---
Lovenox not given per Dr Meade for [facility] in the am.
[2021-05-07] MEDS: piperacillin-tazobactam 3.375 GM in sodium chloride 0.9% (plus) 50 ML IV ×4 (00:11→23:58)
[2021-05-07] MEDS: CLONazepam 0.5 mg Tablet PO ×3 (02:02→20:06)
[2021-05-07 03:43] LABS: Basophils % 0.2 %; Hematocrit 36.8 % (37.0-47.0); Hemoglobin 11.8 g/dL (11.5-15.3); Lymphocytes # 0.3 10^3/uL (0.8-4.8); Lymphocytes % 1.9 %; Mean Corpuscular HGB Conc 32.1 g/dL (30.0-36.0); Mean Corpuscular Hemoglobin 28.2 pg (28.0-34.0); Mean Corpuscular Volume 87.8 fl (81-99); Mean Platelet Volume 9.2 fL (7.4-10.4); Monocytes % 6.9 %; Neutrophils # 13.19 10^3/uL (1.8-7.7); Nucleated Red Blood Cells % 0 %; Platelet Count 361 10^3/cmm (130-400); Red Blood Count 4.19 10^6/uL (4.1-5.3); Red Cell Distribution Width 17.7 % (12.1-15.1)
--- NOTE | 2021-05-07 04:05 | PC.NURSE ---
Shift Note Frequent safety and comfort rounds continue. Orders and/or nursing care completed as indicated. Patient monitored for response to intervention and treatment(s). Education provided includes Zosyn and Clonopin. Patient verbalized complete understanding. Patient aware of plan for LHC this morning. Patient denies needs or pain at this time. No distress observed. Will continue to monitor.
[2021-05-07 04:45] LABS: Alanine Aminotransferase 63 U/L (0-33); Albumin Level 3.1 g/dL (3.5-5.2); Alkaline Phosphatase 152 IU/L (35-105); Anion Gap 18.7 (5-19); Aspartate Amino Transferase 24 U/L (0-32); Blood Urea Nitrogen 23 mg/dL (8-23); Carbon Dioxide 27 mmol/L (22-29); Chloride 93 mmol/L (98-107); Globulin 2.4 g/dL (1.3-4.6); Glomerular Filtration Rate 99.7 mL/min (90-130); Glucose 107 mg/dL (65-115); Osmolality Calculated 284 mOsm/kg (285-295); Potassium 3.7 mmol/L (3.5-5.1); Sodium 135 mmol/L (136-145); Total Bilirubin 0.3 mg/dL (0.15-1.2); Total Protein 5.5 g/dL (6.6-8.7)
[2021-05-07] MEDS: sodium chloride 0.9% 1,000 ML 50 ML IV (08:00)
[2021-05-07] MEDS: ferrous gluconate 324 mg Tablet PO ×2 (08:03→18:17)
[2021-05-07] MEDS: diphenhydrAMINE 50 mg Capsule PO (08:03)
[2021-05-07] MEDS: budesonide 0.5 mg/2 mL Neb INHALATION ×2 (08:34→18:10)
[2021-05-07] MEDS: ipratropium-albuterol 3 mL Neb INHALATION ×2 (08:34→20:59)
--- NOTE | 2021-05-07 08:34 | P.OP_ITS ---
Operative Report Date of procedure: May 07, 2021 Pre-op diagnosis: Preop Diagnosis implantable security monitor end-of-life Post-op diagnosis: Same Procedure done: Explantation of the implantable security monitor Specimens removed/disposition: [place] [id number] Serial # [id number] Make-Medtronic Procedure: LOCATION: Cardiac Catheterization Laboratory REFERRING PROVIDER: Dr. Adams PREOPERATIVE DIAGNOSIS: Recurrent syncope. POSTOPERATIVE DIAGNOSIS: same ESTIMATED BLOOD LOSS: None COMPLICATIONS: None. BRIEF HISTORY: This is a 66-year-old white female with a history of recurrent syncope, had an ICM placement at the [facility] in [facility], many years ago. . Device has reached end-of-life. Patient wanted to have it removed. PROCEDURE: The procedure was explained to the patient in detail with the risks and benefits. The patient understood this well and consented to proceed. The patient was brought to the Cardiac Senior Analysis Specialist. The left side of the neck and the precordial region were cleaned and draped in a sterile fashion. 1% Xylocaine was used as local anesthetic agent. Patient was given 2 gm of Keflex by mouth, half an hour prior to the procedure A 1/3 inch long incision was made at the previous implantation scar. By sharp and blunt dissection, the security monitor pocket was accessed. The device was delivered from the pocket. Complete hemostasis was achieved. The skin was approximated with Steri-Strips EXPLANTED DEVICE: Reveal LINQ Model number: [id number] Serial number: [id number] Make: Medtronic Pressure dressing was applied over the insertion site. The patient was transferred to the medical floor in stable condition.
[2021-05-07] MEDS: pantoprazole DR 40 mg Tablet PO (09:36)
[2021-05-07] MEDS: aspirin 81 mg EC Tablet PO (09:36)
[2021-05-07] MEDS: dexamethasone 4 mg Tablet 2 MG PO ×2 (09:36→18:17)
[2021-05-07] MEDS: clopidogrel 75 mg Tablet PO (09:36)
[2021-05-07] MEDS: carvedilol 3.125 mg Tablet PO ×2 (09:36→18:17)
[2021-05-07] MEDS: spironolactone 25 mg Tablet PO (09:37)
[2021-05-07] MEDS: amiodarone 200 mg Tablet PO ×2 (09:37→18:17)
[2021-05-07] MEDS: losartan 50 mg Tablet 25 MG PO (09:37)
--- NOTE | 2021-05-07 10:12 | XACV_ITS ---
Exam Room: [facility] Ht: 168 cm Wt: 63 kg BSA: 1.71 m2 Gender: Female : 1955 Any Known Allergies: Morphine Exam Priority: Routine Procedure(s): Procedure Description: Diagnostic procedure Procedure Description: Left Heart Catheterization Procedure Description: Left ventriculography Procedure Description: Coronary Angiography Diagnostic Cath Status: Elective Diagnostic Findings * Left Main has no disease. * Left Anterior Descending has no disease. * Circumflex has no disease. * Mid Right Coronary Artery: minimal 30% stenosis, HERNANDEZ: 3 flow. * Coronary angiography shows right dominance. Conclusions 1. There is minimal coronary artery disease with one vessel disease. 2. The apex, mid posterior, mid septum, anterolateral, mid inferior salgado are hypokinetic. 3. All other visualized salgado normal. 4. Mild left ventricular systolic dysfunction. Ejection fraction of 40%. Recommendations * Continue current medical management and risk factor modification. Diagnostic RX Recommendation: medical therapy and/or counseling Ventriculography Ejection Fraction: 40.0 % Left Ventriculography Findings: * Left ventricle moderately depressed ejection fraction 40%. Pressures Phase:Rest AO : / ( 7 ) @ 10:38:00 AM 129 / 36 ( 75 ) @ 11:01:00 AM LV : 129 / 0 / 17 @ 10:59:00 AM 134 / 0 / 18 @ 11:00:00 AM 129 / 0 / 19 @ 11:01:00 AM Clinical Evaluation EBL: 5mL-10mL Procedural Details Procedure Consent Obtained. Admit Source: In Patient. Pre-Procedure Time Out. Identified patient by full name and date of as verbalized by the patient/guarantor. Does the consent match the physician's order: Yes. Accurate & Complete Informed Consent: Yes. Inpatient/Outpatient History & Physical on Chart: Yes. If H&P is completed, is and addenduem needed: No; If yes, is the addendum complete: No. Visualize and Verify Site with Patient/Guarantor: N/A. Relevant Radiology Images available: N/A. The risks, benefits, and alternatives of sedation and/or procedure were discussed by physician. The patient agrees to continue. Procedure started. [facility] Clinical Fraility Score: 5: Moderately Frail. Human Resources Partner Indications: ACS > 24 hours. Chest Pain Symptom Assessment: Typical Angina. Correct patient, site and procedure confirmed by cath team. Current diagnosis: NSTEMI. PERRLA. Strong, equal hand biomechanical engineer bilaterally. Lungs clear x 5 lobes. IV site: PICC line to right upper arm. IV Fluids: 0.9% NaCl at KVO. 100 mL infused prior to cardiac cath tech. Oxygen started at 2liters/min via nasal canula. right groin was prepped with chloroprep then draped in the usual sterile fashion. Physician notified. Baseline sample Acquired. HR: 82 BPM. Equipment: 6F - Femoral. Cardiac Cath Pack. ACIST Manifold Kit Model BT 2000. Heparinized Saline (2 units/mL), 1000 mL bag. Kit, Micropuncture. Physician arrived. Physician scrubbed in. Immediate Pre-Procedure Time Out. Correct Patient: Yes; Correct Procedure: Yes; Correct Site: Yes; Correct Patient Position: Yes; Correct Supplies: Yes; Dried Flammable Prep: Yes; Blood Products Available: No;. Lidocaine 1% infiltrated to the right groin. Arterial access obtained with micropuncture set. A 5 cook islander JL4 catheter in over wire. Multiple views taken of left coronary artery. Catheter out. A 5 cook islander JR4 catheter in over wire. Multiple views taken of right coronary artery. Catheter out. A 5 cook islander Angled Pig catheter in over wire. EDP Sample taken: LV 134/0,18; HR: 79 BPM; SpO2: 95%. LV gram performed in DOTSON @ 10 mL/second for a total of 30 mL. EDP Sample taken: LV 129/0,19; HR: 77 BPM; SpO2: 96%. Pullback taken: LV Off; AO Off; Mean: , Peak to Peak: , SEP: ; HR: 78 BPM; SpO2: 95%. Catheter out. A Right femoral angiogram was performed to determine safe placement of closure device. Angioseal placed without complications. No signs or symptoms of hematoma noted. Sterile dressing applied per usual sterile fashion. Post Procedure: Pulses reassessed and unchanged. PERRLA. Strong, equal hand biomechanical engineer bilaterally. No VTE prophylaxis required. Total IV fluids: 29 mL. Medication's Wasted: Lidocaine 1% = 0 mL. Medication's Wasted: Heparin = 1000 mL. Medication's Wasted: Versed = 1.5 mg. Medication's Wasted: Fentanyl = 100 mcg. A Angio-Seal VIP ([facility] [facility]) was successful obtaining hemostatsis at the Right Femoral artery insertion site. Post-op diagnosis: Non-obstructive CAD, Takotsubo. Complications: None. Estimated blood loss: 5mL-10mL. Responsiveness - Normal response to verbal stimuli; alert and oriented, PERRLA. Airway - Unaffected, no intervention required; spontaneous ventilation. Circulation: W/N/L, pulses unchanged. Nausea/Vomiting: No. Procedure completed. Patient transferred by bed to 1st floor. Vital chart was stopped. Access Site Site: Right Femoral artery Sheath Size: 6 Fr Hemostasis Method: Angio-Seal VIP ([facility] [facility]) Hemostasis Success: Successful Procedure Medications Start: 12:39 PM Stop: 12:39 PM Medication: Versed Amount: 0.5 mg Route: I.V. I, the attending physician, have reviewed and verified all procedure medications. Yes, all medications given per verbal order History/Risk Factors Hypertension: No Dyslipidemia: No Peripheral Arterial Disease (PAD): No Myocardial Infarction ([place]): No Obesity: No Renal Disease: No Tobacco Use: Former Prior Interventions PCI: No CABG: No Valve Surgery: No Report Signatures Finalized by Akosua Meade MD on 05/21/2021 08:52 PM
--- NOTE | 2021-05-07 12:39 | W.PM.OPSUD ---
Surgery/Procedure H&P Update DATE OF PROCEDURE: May 07, 2021 DATE H&P PERFORMED: 05/06/21 PREOP DIAGNOSIS: Malignant pleural effusion PLANNED PROCEDURE: Left heart cath/PCI if indicated Patient has been consented for conscious sedation patient has been explained all risk benefit and alternative for the procedure she understand risk for major minor bleed brain hemorrhage stroke hematoma urgent emergent bypass surgery
--- NOTE | 2021-05-07 15:38 | P.PN_ITS ---
Subjective Subjective: Interval history: No acute events overnight. Has remained hemodynamically stable. Afebrile. Currently on 2 L oxygen supplementation. Waiting for cardiac angiogram to be done today. Denies any further chest pain. Medications: Medication Review Details: Current Medications Acetaminophen (Acetaminophen 325 Mg Tablet) 650 mg PO Q6H PRN PRN Reason: Mild/Mod Pain Or Temp >/= 101 Albuterol Sulfate (Albuterol 2.5 Mg/0.5 Ml Neb) 2.5 mg INHALATION Q4H.RESPIRATORY PRN PRN Reason: SHORTNESS OF BREATH Albuterol/Ipratropium (Ipratropium-Albuterol 3 Ml Neb) 3 ml INHALATION Q6H.RESPIRATORY [facility] Last Admin: 05/06/21 14:40 Dose: 3 ml Documented by: Amiodarone HCl (Amiodarone 200 Mg Tablet) 200 mg PO BID [facility] Last Admin: 05/06/21 18:07 Dose: 200 mg Documented by: Aspirin (Aspirin 81 Mg Ec Tablet) 81 mg PO DAILY [facility] Last Admin: 05/06/21 10:18 Dose: 81 mg Documented by: Bisacodyl (Bisacodyl 5 Mg Tablet) 10 mg PO DAILY PRN; Protocol PRN Reason: Constipation (see protocol) Budesonide (Budesonide 0.5 Mg/2 Ml Neb) 0.5 mg INHALATION BID [facility] Last Admin: 05/06/21 08:19 Dose: 0.5 mg Documented by: Clonazepam (Clonazepam 0.5 Mg Tablet) 0.5 mg PO TID PRN PRN Reason: Anxiety Last Admin: 05/06/21 07:07 Dose: 0.5 mg Documented by: Clopidogrel Bisulfate (Clopidogrel 75 Mg Tablet) 75 mg PO DAILY [facility] Last Admin: 05/06/21 10:19 Dose: 75 mg Documented by: Dexamethasone (Dexamethasone 4 Mg Tablet) 2 mg PO BID [facility] Last Admin: 05/06/21 18:07 Dose: 2 mg Documented by: Enoxaparin Sodium (Enoxaparin 60 Mg/0.6 Ml Syringe) 60 mg SUBCUT Q12H [facility] Last Admin: 05/06/21 15:29 Dose: 60 mg Documented by: Ferrous Gluconate (Ferrous Gluconate 324 Mg Tablet) 324 mg PO BIDWM [facility] Last Admin: 05/06/21 18:07 Dose: 324 mg Documented by: Piperacillin Sod/Tazobactam (Sod 3.375 gm/ Sodium Chloride) 50 mls @ 12.5 mls/hr IV Q8H [facility]; Protocol Last Admin: 05/06/21 18:06 Dose: 12.5 mls/hr Documented by: Sodium Chloride (Sodium Chloride 0.9%) 1,000 mls @ 50 mls/hr IV .Q20H ONE Stop: 05/07/21 14:58 Magnesium Hydroxide (Magnesium Hydroxide 30 Ml Udc) 30 ml PO DAILY PRN; P rotocol PRN Reason: Constipation (see protocol) Morphine Sulfate (Morphine 4 Mg/Ml Sdv 1 Ml) 2 mg IVP Q4H PRN PRN Reason: SEVERE PAIN Ondansetron HCl (Ondansetron 2 Mg/Ml Sdv 2 Ml) 4 mg IVP Q6H PRN PRN Reason: NAUSEA AND VOMITING Oxycodone HCl (Oxycodone 5 Mg Ir Tab/Cap) 10 mg PO Q4H PRN PRN Reason: MODERATE PAIN Pantoprazole Sodium (Pantoprazole Dr 40 Mg Tablet) 40 mg PO DAILY [facility] Last Admin: 05/06/21 10:19 Dose: 40 mg Documented by: Trazodone HCl (Trazodone 50 Mg Tablet) 50 mg PO BEDTIME PRN PRN Reason: Sleep Vitals/I&O/Wt Last Vital Signs Temp 97.7 F 05/07/21 04:00 Pulse 78 05/07/21 06:00 Resp 28 H 05/07/21 04:00 BP 150/94 05/07/21 09:37 Pulse Ox 95 05/07/21 04:00 05/07/21 05/07/21 05/07/21 06:59 14:59 22:59 Intake Total 50 / 1369.9 Output Total 800 / 3250 Balance -750 / -1880.1 Weight last 48 hrs Weight 62.686 kg Weight 62.823 kg Weight 62.369 kg Physical Exam Narrative: EXAM NARRATIVE: General: No acute distress, AO x3, chronically ill-appearing, frail, pallor present HEENT: PERRLA, pupils bilaterally equal and reactive Chest: Bilateral bronchial breath sounds, decreased air entry in right upper zone with tympany present, coarse crackles present dispersed all over the lung griffiths otherwise equal good air entry bilaterally, decreased air entry right lower zone CVS: S1-S2 irregularly irregular, no murmurs, no tachycardia, no gallops, no rubs Abdomen: Soft, nontender, no organomegaly, bowel sounds present Neuro: No focal deficits, no facial deformity, AO x3, power 5/5 in all limbs Urinary Catheter Management: [place] Latex: Cath Placed During This Visit: yes Reason for Continuing Indwelling Catheter: Acute Urinary Retention or Obstruction Urinary Catheter Date of Insertion: 05/05/21 Urinary Catheter Time of Insertion: 19:30 Data : 05/07/21 02:32 05/07/21 02:32 Micro: Microbiology 05/05/21 22:45 Gram Stain - Final Sputum - Expectorated Sputum Sputum Culture - Preliminary 05/05/21 15:54 MRSA Culture - Final Nose 05/05/21 11:35 Bacterial Antigens - Final Urine Kidney A&P Assessment and plan (1) Chest pain: Status: Acute Qualifiers: Chest pain type: unspecified Qualified Code(s): R07.9 - Chest pain, unspecified (2) NSTEMI (non-ST elevated myocardial infarction): Status: Acute (3) Shortness of breath: Status: Acute (4) Atrial flutter with rapid ventricular response: Status: Acute (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 Awaiting cardiac angiogram today. Positive delta troponins. Lipid panel appreciated. CTA ruled out PE. Echocardiogram results appreciated for EF of 23%, grade 1 diastolic dysfunction, regional wall motion normality with diffuse hypokinesia of the mid and apical inferior lateral wall segment, apex. Continue Lovenox 1 mg/kg body weight 12 hourly. We will switch to home dose of Xarelto post cardiac catheterization. Continue with aspirin, Plavix, statin. Shortness of breath: Currently on 4 L which is her home oxygen requirement. Most likely a combination of pleural effusion, congestive heart failure, malignancy. Less likely secondary to pneumonia. Flu swab, COVID-19 negative. MRSA swab negative. Sputum culture results awaited. Stop vancomycin continue with Zosyn. patient remains hemodynamically stable and afebrile for next 24 hours will discontinue antibiotics. Congestive heart failure: As on echocardiogram. Neck systolic and diastolic heart failure. Cannot rule out possible. Being started and gradually increase on heart failure medication. Currently on 25 mg of losartan 25mg spironolactone. Strict input output charting, daily weights. Fluid restriction up to 1500 cc. Appreciate cardiology recommendations. DuoNebs every 6 hour, budesonide twice daily. 50 cc of pleural fluid drained through [place] drain. Chest x-ray. Adenocarcinoma of lung with metastasis to brain: Follows up with Dr. Almeida. Wants to continue treatment. Post whole brain radiation. Continue with home dose of dexamethasone. COPD: Not in exacerbation. History of superior vena cava thrombosis/pulmonary vein thrombosis: CTA as above. Anticoagulation as above. CODE STATUS: Discussed in detail with the patient. She wants to be full code. She wants to continue treatment for cancer as an outpatient. She has even been offered hospice by Dr. Almeida in the past but wants to continue the treatment plan for now.She is agreeable for cardiac catheterization if needed. Protonix for PUD prophylaxis. Cardiac diet. Attestations Medical Necessity Statement*: Requires further hospitalization for management of non-ST elevation IN, congestive heart failure while patient awaits for cardiac angiogram to rule out CAD versus possible Takotsubo's, shortness of breath secondary to congestive heart failure, lung malignancy and pleural effusion Time Spent in Patient Care: Greater than 35 minutes Coding Level of Care Code Acute Revenue Tax Specialist for g Fwd Diagnoses Chest pain R07.9 Chest pain type: unspecified NSTEMI (non-ST elevated myocardial infarction) I21.4 Shortness of breath R06.02 Atrial flutter with rapid ventricular response I48.92 Superior vena cava thrombosis I82.210 Pulmonary venous thrombosis I26.99 Pneumonia J18.9 Adenocarcinoma, lung C34.91 Laterality: right Brain metastasis C79.31
--- NOTE | 2021-05-07 18:37 | PM.PN ---
Subjective Subjective: Interval history: Is mainly complaining of shortness of breath, which is baseline. No significant change since yesterday. Denies any chest pain. Telemetry shows sinus rhythm. No significant arrhythmias. Medications: Medication Review Details: Current Medications Acetaminophen (Acetaminophen 325 Mg Tablet) 650 mg PO Q6H PRN PRN Reason: Mild/Mod Pain Or Temp >/= 101 Al Hydrox/Mg Hydrox/Simethicone (Qclt-Ixr-Dxovliphs-Jesenia 30 Ml Udc) 30 ml PO Q15M PRN PRN Reason: INDIGESTION Albuterol Sulfate (Albuterol 2.5 Mg/0.5 Ml Neb) 2.5 mg INHALATION Q4H.RESPIRATORY PRN PRN Reason: SHORTNESS OF BREATH Last Admin: 05/07/21 18:10 Dose: 2.5 mg Documented by: Albuterol/Ipratropium (Ipratropium-Albuterol 3 Ml Neb) 3 ml INHALATION Q6H.RESPIRATORY [facility] Last Admin: 05/07/21 08:34 Dose: 3 ml Documented by: Amiodarone HCl (Amiodarone 200 Mg Tablet) 200 mg PO BID [facility] Last Admin: 05/07/21 18:17 Dose: 200 mg Documented by: Aspirin (Aspirin 81 Mg Ec Tablet) 81 mg PO DAILY [facility] Last Admin: 05/07/21 09:36 Dose: 81 mg Documented by: Atropine Sulfate (Atropine 1 Mg/Ml Sdv 1 Ml) 0.5 mg IVP PRN PRN PRN Reason: Symptomatic bradycardia Bisacodyl (Bisacodyl 5 Mg Tablet) 10 mg PO DAILY PRN; Protocol PRN Reason: Constipation (see protocol) Budesonide (Budesonide 0.5 Mg/2 Ml Neb) 0.5 mg INHALATION BID [facility] Last Admin: 05/07/21 18:10 Dose: 0.5 mg Documented by: Carvedilol (Carvedilol 3.125 Mg Tablet) 3.125 mg PO BID [facility] Last Admin: 05/07/21 18:17 Dose: 3.125 mg Documented by: Clonazepam (Clonazepam 0.5 Mg Tablet) 0.5 mg PO TID PRN PRN Reason: Anxiety Last Admin: 05/07/21 09:50 Dose: 0.5 mg Documented by: Clopidogrel Bisulfate (Clopidogrel 75 Mg Tablet) 75 mg PO DAILY [facility] Last Admin: 05/07/21 09:36 Dose: 75 mg Documented by: Dexamethasone (Dexamethasone 4 Mg Tablet) 2 mg PO BID [facility] Last Admin: 05/07/21 18:17 Dose: 2 mg Documented by: Enoxaparin Sodium (Enoxaparin 60 Mg/0.6 Ml Syringe) 60 mg SUBCUT Q12H [facility] Last Admin: 05/07/21 00:07 Dose: Not Given Documented by: Ferrous Gluconate (Ferrous Gluconate 324 Mg Tablet) 324 mg PO BIDWM [facility] Last Admin: 05/07/21 18:17 Dose: 324 mg Documented by: Piperacillin Sod/Tazobactam (Sod 3.375 gm/ Sodium Chloride) 50 mls @ 12.5 mls/hr IV Q8H [facility]; Protocol Last Admin: 05/07/21 18:18 Dose: 12.5 mls/hr Documented by: Sodium Chloride (Sodium Chloride 0.9%) 1,000 mls @ 50 mls/hr IV .Q20H [facility] Last Admin: 05/07/21 08:00 Dose: 50 mls/hr Documented by: Losartan Potassium (Losartan 50 Mg Tablet) 25 mg PO DAILY [facility] Last Admin: 05/07/21 09:37 Dose: 25 mg Documented by: Magnesium Hydroxide (Magnesium Hydroxide 30 Ml Udc) 30 ml PO DAILY PRN; Protocol PRN Reason: Constipation (see protocol) Magnesium Hydroxide (Magnesium Hydroxide 30 Ml Udc) 30 ml PO DAILY PRN PRN Reason: CONSTIPATION Morphine Sulfate (Morphine 4 Mg/Ml Sdv 1 Ml) 2 mg IVP Q4H PRN PRN Reason: SEVERE PAIN Naloxone HCl (Naloxone 0.4 Mg/Ml Sdv) 0.1 mg IVP Q2M PRN PRN Reason: RESPIRATORY RATE < 8/MIN Nitroglycerin (Nitroglycerin 0.4 Mg Sublingual Tablet) 0.4 mg SUBLINGUAL Q5M PRN PRN Reason: CHEST PAIN Ondansetron HCl (Ondansetron 2 Mg/Ml Sdv 2 Ml) 4 mg IVP Q6H PRN PRN Reason: NAUSEA AND VOMITING Oxycodone HCl (Oxycodone 5 Mg Ir Tab/Cap) 10 mg PO Q4H PRN PRN Reason: MODERATE PAIN Pantoprazole Sodium (Pantoprazole Dr 40 Mg Tablet) 40 mg PO DAILY [facility] Last Admin: 05/07/21 09:36 Dose: 40 mg Documented by: Spironolactone (Spironolactone 25 Mg Tablet) 25 mg PO DAILY [facility] Last Admin: 05/07/21 09:37 Dose: 25 mg Documented by: Temazepam (Temazepam 15 Mg Capsule) 15 mg PO BEDTIME PRN PRN Reason: INSOMNIA Trazodone HCl (Trazodone 50 Mg Tablet) 50 mg PO BEDTIME PRN PRN Reason: Sleep Vitals/I&O/Wt Last Vital Signs Temp 97.7 F 05/07/21 04:00 Pulse 77 05/07/21 18:17 Resp 18 05/07/21 18:17 BP 150/94 05/07/21 09:37 Pulse Ox 96 05/07/21 18:17 05/07/21 05/07/21 05/07/21 06:59 14:59 22:59 Intake Total 50 / 1369.9 50 / 50 Output Total 800 / 3250 Balance -750 / -1880.1 50 / 50 Weight last 48 hrs Weight 138 lb 3.2 oz Weight 138 lb 8 oz Weight 137 lb 8 oz Physical Exam Narrative: EXAM NARRATIVE: GENERAL: The patient is alert and oriented times three. Not in any acute distress. Somewhat withdrawn HEENT: Moderate pallor, no icterus..Oral cavity: There are no mucous membrane lesions. NECK: Trachea appears to be central. No masses noted. No JVD or thyromegaly appreciated. RESPIRATORY: Chest is symmetrical. No intercostals muscle retraction or any accessory muscle activation. There is some? chest wall tenderness, anteriorly Breath sounds are heard bilaterally. scattered coarse crackles. Diminished intensity of breath sounds right base. BREASTS: Deferred. HEART: The heart sounds are normal.? No S3 or S4. ? No significant murmurs.? No pericardial rub ABDOMEN: No vessel pulsations or distention. No tenderness. No organomegaly appreciated.? Bowel sounds are normally heard. : Deferred. RECTAL: Deferred. LYMPHATIC: No lymphadenopathy noted in the neck or groin. EXTREMITIES: No significant edema or cyanosis. Peripheral pulses are palpable but weak bilaterally MUSCULOSKELETAL: No acute joint deformities or swelling SKIN: There are no significant rashes or ecchymosis NEUROPSYCHIATRIC: The patient is alert and oriented x3. Appears to be in a good mood. No tremors or rigidity noted. Urinary Catheter Management: Medina Latex: Cath Placed During This Visit: yes Reason for Continuing Indwelling Catheter: Acute Urinary Retention or Obstruction Urinary Catheter Date of Insertion: 05/05/21 Urinary Catheter Time of Insertion: 19:30 Data : 05/07/21 02:32 05/07/21 02:32 Other Labs: Laboratory Last Values WBC 15.0 10^3/uL (4.0-10.0) H 05/07/21 02:32 RBC 4.19 10^6/uL (4.1-5.3) 05/07/21 02:32 Hgb 11.8 g/dL (11.5-15.3) 05/07/21 02:32 Hct 36.8 % (37.0-47.0) L 05/07/21 02:32 MCV 87.8 fl (81-99) 05/07/21 02:32 MCH 28.2 pg (28.0-34.0) 05/07/21 02:32 MCHC 32.1 g/dL (30.0-36.0) 05/07/21 02:32 RDW 17.7 % (12.1-15.1) H 05/07/21 02:32 Plt Count 361 10^3/cmm (130-400) 05/07/21 02:32 MPV 9.2 fL (7.4-10.4) 05/07/21 02:32 Neut % (Auto) 88.0 % 05/07/21 02:32 Lymph % (Auto) 1.9 % 05/07/21 02:32 Lucas % (Auto) 6.9 % 05/07/21 02:32 Eos % (Auto) 0.0 % 05/07/21 02:32 Baso % (Auto) 0.2 % 05/07/21 02:32 Neut # (Auto) 13.19 10^3/uL (1.8-7.7) H 05/07/21 02:32 Lymph # (Auto) 0.3 10^3/uL (0.8-4.8) L 05/07/21 02:32 Lucas # (Auto) 1.0 10^3/uL (0.2-0.9) H 05/07/21 02:32 Eos # (Auto) 0.0 10^3/uL (0.0-0.8) 05/07/21 02:32 Baso # (Auto) 0.0 10^3/uL (0.0-0.1) 05/07/21 02:32 Nucleated RBC % (auto) 0 % 05/07/21 02:32 Nucleated RBCs # 0.0 /100WBC 05/07/21 02:32 APTT 48.4 SECONDS (23.9-36.7) H 05/06/21 11:05 Sodium 135 mmol/L (136-145) L 05/07/21 02:32 Potassium 3.7 mmol/L (3.5-5.1) 05/07/21 02:32 Chloride 93 mmol/L (98-107) L 05/07/21 02:32 Carbon Dioxide 27 mmol/L (22-29) 05/07/21 02:32 Anion Gap 18.7 (5-19) 05/07/21 02:32 BUN 23 mg/dL (8-23) 05/07/21 02:32 Creatinine 0.6 mg/dL (0.5-0.9) 05/07/21 02:32 GFR Calculation 99.7 mL/min (90-130) 05/07/21 02:32 Glucose 107 mg/dL (65-115) 05/07/21 02:32 Calculated Osmolality 284 mOsm/kg (285-295) L 05/07/21 02:32 Calcium 9.0 mg/dL (8.5-10.5) 05/07/21 02:32 Phosphorus 4.2 mg/dL (2.5-4.5) 05/06/21 01:08 Magnesium 1.8 mg/dL (1.7-2.3) 05/06/21 01:08 Iron 24 ug/dL (37-145) L 05/05/21 11:59 TIBC 197 mcg/dl 05/05/21 11:59 % Saturation 12.1 % (20-50) L 05/05/21 11:59 Unsat Iron Binding 173 ug/dL (112-347) 05/05/21 11:59 Total Bilirubin 0.3 mg/dL (0.15-1.2) 05/07/21 02:32 AST 24 U/L (0-32) 05/07/21 02:32 ALT 63 U/L (0-33) H 05/07/21 02:32 Alkaline Phosphatase 152 IU/L (35-105) H 05/07/21 02:32 Creatine Kinase 20 U/L (26-192) L 05/05/21 09:50 Troponin T Gen 5 ng/L 118 ng/L (0-10) H* 05/06/21 01:08 Troponin T Baseline 25 ng/L (0-10) H 05/05/21 09:50 Troponin T 120 Minute 98.31 ng/L (0-10) H 05/05/21 11:59 Delta Troponin T 73.31 ABS# (0-10) H* 05/05/21 11:59 Troponin T Hi Sens 6Hr 153.4 ng/L (0-10) H 05/05/21 16:12 Troponin T Hi Sens 6Hr Delta 128.4 ng/L (0-12) H* 05/05/21 16:12 C-Reactive Protein 59.3 mg/L (0.0-4.9) H 05/05/21 11:59 NT-Pro-B Natriuret Pep 727 pg/mL (0-125) H 05/05/21 11:59 Total Protein 5.5 g/dL (6.6-8.7) L 05/07/21 02:32 Albumin 3.1 g/dL (3.5-5.2) L 05/07/21 02:32 Globulin 2.4 g/dL (1.3-4.6) 05/07/21 02:32 Triglycerides 106 mg/dL (0-150) 05/06/21 01:08 Cholesterol 184 mg/dL (0-200) 05/06/21 01:08 LDL Cholesterol, Calc 111 mg/dL (50-129) 05/06/21 01:08 Total VLDL Cholesterol 21 mg/dL (0-30) 05/06/21 01:08 HDL Cholesterol 52 mg/dL (60-100) L 05/06/21 01:08 Cholesterol/HDL Ratio 3.54 mg/dL (0.0-4.40) 05/06/21 01:08 Procalcitonin 0.12 ng/mL (0-0.5) 05/05/21 11:59 TSH 1.88 uIU/mL (0.27-4.20) 05/05/21 11:59 Urine Color Yellow (Yellow) 05/05/21 11:35 Urine Appearance Clear (CLEAR) 05/05/21 11:35 Urine pH 5 (5-7) 05/05/21 11:35 Ur Specific Mobile 1.020 (1.005-1.030) 05/05/21 11:35 Urine Protein Neg (Negative) 05/05/21 11:35 Urine Glucose (UA) Norm (Normal) 05/05/21 11:35 Urine Ketones Negative (Negative) 05/05/21 11:35 Urine Blood 3+ (Negative) H 05/05/21 11:35 Urine Nitrate Negative (Negative) 05/05/21 11:35 Urine Bilirubin Neg (Negative) 05/05/21 11:35 Urine Urobilinogen 1 mg/dL (Negative) H 05/05/21 11:35 Ur Leukocyte Esterase Trace (Negative) H 05/05/21 11:35 Urine RBC 5-10 /hpf (0-2) H 05/05/21 11:35 Urine WBC 5-10 /hpf (0-5) H 05/05/21 11:35 Ur Squamous Epith Cells 10-15 /hpf (0-5) H 05/05/21 11:35 Amorphous Sediment Not Reportable 05/05/21 11:35 Urine Bacteria 1+ /hpf (NONE) H 05/05/21 11:35 Hyaline Casts 0-4 /lpf H 05/05/21 11:35 Urine Mucus 2+ /hpf 05/05/21 11:35 Coronavirus 229E (PCR) Not detected (NOT DETECT) 05/05/21 Unknown Influenza Type A Ag Negative (Negative) 05/05/21 15:54 Influenza Type B Ag Negative (Negative) 05/05/21 15:54 SARS-CoV-2 (PCR) Not detected (NOT DETECT) 05/05/21 Unknown SARS-CoV-2 RNA (RT-PCR) Cancelled 05/05/21 12:33 SARS-CoV-2 Ag (Rapid) Negative (Negative) 05/05/21 15:54 Micro: Microbiology 05/05/21 22:45 Gram Stain - Final Sputum - Expectorated Sputum Sputum Culture - Preliminary 05/05/21 15:54 MRSA Culture - Final Nose A&P Assessment and plan (1) NSTEMI (non-ST elevated myocardial infarction): Patient may be continued on the current medications. I discussed with Dr. Almeida about the patient's current condition and the need for a cardiac catheterization. As per Dr. Almeida, there is no contraindication for going ahead with the procedure especially for her to continue Plavix and aspirin, if required. I will be asking Dr. Meade to perform this procedure. Based on the angiogram results, further recommendations will be made Status: Acute (2) Ischemic cardiomyopathy: Patient has severe LV systolic dysfunction. Etiology is not clear. A Takotsubo syndrome cannot be excluded. I may start her on spironolactone 25 mg p.o. daily. Also will start her on a low-dose of beta-viri and an ARB, if the blood pressure tolerates. Based on the clinical progress, further management decisions will be made. May continue on the current medications. 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 Status post chemo and radiation treatment. Management as per the oncology service Status: Acute Qualifiers: Laterality: right Qualified Code(s): C34.91 - Malignant neoplasm of unspecified part of right bronchus or lung (4) Brain metastasis: Has no bleeding complications. Currently the patient has no focal neurological deficits Status: Acute (5) Pulmonary venous thrombosis: IV anticoagulation for the time being. Continue on the Lovenox tonight. May hold off on this in the morning. Status: Acute (6) Atrial fibrillation/flutter: Patient has a history of intermittent atrial fibrillation/flutter. Currently she is in sinus rhythm. May continue on the current medications. Status: Acute Plan Based on the patient's clinical progress and the results of the angiogram, further recommendations will be made. Attestations Medical Necessity Statement*: Patient requires continued hospital stay for close monitoring and further management Coding Level of Care Code Acute Staff Home Therapy Rn for Chg Fwd History Detailed Exam Detailed Medical Decision Making Moderate Complexity Diagnoses NSTEMI (non-ST elevated myocardial infarction) I21.4 Ischemic cardiomyopathy I25.5 Adenocarcinoma, lung C34.91 Laterality: right Brain metastasis C79.31 Pulmonary venous thrombosis I26.99 Atrial fibrillation/flutter
[2021-05-07] MEDS: trazodone 50 mg Tablet PO (20:06)
--- NOTE | 2021-05-07 20:08 | PC.NURSE ---
Received report from MANISHA Mac. Patient resting in bed watching TV. Patient c/o feeling more short of breath. SpO2 at 88%. Increased O2 to 6L NC for increase in SpO2 to 94%. Administered clonopin and trazadone for known anxiety disorder as ordered and documented. Patient is s/p [facility] without PCI via right femoral artery. Angioseal in place. Dressing to site remains c,d,i with no s/s of bleeding or hematoma formation observed. Patient has choi catheter in place. Denies pain presently. No other distresses observed. Instructed patient on clonopin and trazadone. Patient verbalized complete understanding. Will continue to monitor.
[2021-05-08] VITALS (19 sets, daily range): BP systolic 84–122; BP diastolic 56–74; PULSE 71–89; RESP 16–20; TEMP 36.4–36.8; O2SAT 93–98
[2021-05-08] MEDS: ondansetron 2 mg/ML SDV 2 mL 4 MG IVP ×2 (00:45→05:21)
[2021-05-08] MEDS: enoxaparin 60 mg/0.6 mL Syringe SUBCUT (00:46)
[2021-05-08] MEDS: ipratropium-albuterol 3 mL Neb INHALATION ×4 (03:08→21:37)
--- NOTE | 2021-05-08 03:39 | XRR_ITS ---
PROCEDURE INFORMATION: Exam: XR Chest Exam date and time: 05/08/2021 3:39 AM Age: 66 years old Clinical indication: Prior surgery; Surgery type: Bronchoscopy; Patient HX: Worsening shortness of breath. History of lung cancer. ; Additional info: Increased shortness of breath TECHNIQUE: Imaging protocol: XR of the chest. Views: 1 view. Total images: 1 COMPARISON: CR XR chest 1V portable [id number] 05/05/2021 11:04 AM FINDINGS: Tubes, catheters and devices: Tubes and catheters are unchanged from the prior exam. Lungs: Stable right pleuroparenchymal disease. Nonspecific left lung base opacity favors atelectasis or pneumonia. Pleural spaces: No pneumothorax. Heart/Mediastinum: Heart size is stable when compared to the prior exam. Bones/joints: Osseous structures are unchanged from the prior exam. XR/XR chest 1V portable [id number] IMPRESSION: 1. Tubes and catheters are unchanged from the prior exam. 2. Stable right pleuroparenchymal disease. 3. Nonspecific left lung base opacity favors atelectasis or pneumonia.
[2021-05-08] MEDS: FUROsemide 10 mg/mL SDV 4mL 40 MG IVP (03:53)
--- NOTE | 2021-05-08 03:56 | PC.NURSE ---
Patient c/o increased SOB. Patient has increased crackles throughout on inspiration and expiration. Patient unable to deep breathe and cough at this time. Patient reports not being able to cough anything loose. Informed Dr Amor. Doctor in to see patient. Doctor gave verbal orders for BMP, BNP, Mag and a portable chest xray. Also received order for onetime dose of Lasix 40mg IVP. RBVO.
[2021-05-08 04:43] LABS: Anion Gap 14.8 (5-19); Blood Urea Nitrogen 22 mg/dL (8-23); Calcium 8.8 mg/dL (8.5-10.5); Carbon Dioxide 27 mmol/L (22-29); Chloride 98 mmol/L (98-107); Glomerular Filtration Rate 123.1 mL/min (90-130); Glucose 89 mg/dL (65-115); Magnesium 1.9 mg/dL (1.7-2.3); NT Pro B Type Natriuretic Pept 1373 pg/mL (0-125); Osmolality Calculated 285 mOsm/kg (285-295); Potassium 3.8 mmol/L (3.5-5.1); Sodium 136 mmol/L (136-145)
[2021-05-08] MEDS: bisacodyl 5 mg Tablet 10 MG PO (05:27)
--- NOTE | 2021-05-08 08:55 | PC.SOCIAL ---
IMM update IMM updated with patient. Verbalized an understanding. Copy Pg 2 provided. Initialled, dated, timed, and placed in chart.
[2021-05-08] MEDS: spironolactone 25 mg Tablet PO (09:05)
[2021-05-08] MEDS: clopidogrel 75 mg Tablet PO (09:05)
[2021-05-08] MEDS: CLONazepam 0.5 mg Tablet PO (09:05)
[2021-05-08] MEDS: pantoprazole DR 40 mg Tablet PO (09:05)
[2021-05-08] MEDS: aspirin 81 mg EC Tablet PO (09:05)
[2021-05-08] MEDS: ferrous gluconate 324 mg Tablet PO ×2 (09:05→18:01)
[2021-05-08] MEDS: amiodarone 200 mg Tablet PO ×2 (09:06→18:01)
[2021-05-08] MEDS: carvedilol 3.125 mg Tablet PO (09:06)
[2021-05-08] MEDS: dexamethasone 4 mg Tablet 2 MG PO ×2 (09:06→18:01)
[2021-05-08] MEDS: piperacillin-tazobactam 3.375 GM in sodium chloride 0.9% (plus) 50 ML IV ×2 (09:08→18:01)
[2021-05-08] MEDS: budesonide 0.5 mg/2 mL Neb INHALATION ×2 (09:15→21:37)
[2021-05-08] MEDS: potassium chloride ER 20 mEq Tablet PO (10:04)
[2021-05-08] MEDS: rivaroxaban 10 mg Tablet 15 MG PO (10:04)
[2021-05-08] MEDS: FUROsemide 40 mg Tablet PO (10:04)
--- NOTE | 2021-05-08 14:37 | P.PN_ITS ---
Subjective Subjective: Interval history: No acute events overnight. Has remained hemodynamically stable. Afebrile. Currently on 2 L oxygen supplementation. Waiting for cardiac angiogram to be done today. Denies any further chest pain. Vitals/I&O/Wt Last Vital Signs Temp 97.7 F 05/07/21 04:00 Pulse 87 05/08/21 09:20 Resp 16 05/08/21 09:15 BP 108/65 05/08/21 11:53 Pulse Ox 96 05/08/21 09:15 05/07/21 05/08/21 05/08/21 22:59 06:59 14:59 Intake Total 390 / 680 850.833 / 1530.833 50 / 50 Output Total 450 / 450 900 / 1350 Balance -60 / 230 -49.167 / 180.833 50 / 50 Weight last 48 hrs Weight 61.19 kg Weight 62.686 kg Physical Exam Narrative: EXAM NARRATIVE: General: No acute distress, AO x3, chronically ill-appearing, frail, pallor present HEENT: PERRLA, pupils bilaterally equal and reactive Chest: Bilateral bronchial breath sounds, decreased air entry in right upper zone with tympany present, coarse crackles present dispersed all over the lung griffiths otherwise equal good air entry bilaterally, decreased air entry right lower zone CVS: S1-S2 irregularly irregular, no murmurs, no tachycardia, no gallops, no rubs Abdomen: Soft, nontender, no organomegaly, bowel sounds present Neuro: No focal deficits, no facial deformity, AO x3, power 5/5 in all limbs Urinary Catheter Management: Med[place] Latex: Cath Placed During This Visit: yes Reason for Continuing Indwelling Catheter: Acute Urinary Retention or Obstruction Urinary Catheter Date of Insertion: 05/05/21 Urinary Catheter Time of Insertion: 19:30 Data : 05/07/21 02:32 05/08/21 03:47 Micro: Microbiology 05/05/21 22:45 Gram Stain - Final Sputum - Expectorated Sputum Sputum Culture - Final A&P Assessment and plan (1) Chest pain: Status: Acute Qualifiers: Chest pain type: unspecified Qualified Code(s): R07.9 - Chest pain, unspecified (2) Shortness of breath: Status: Acute (3) Nonischemic cardiomyopathy: Status: Acute (4) Takotsubo cardiomyopathy: Status: Acute (5) Atrial flutter with rapid ventricular response: Status: Acute (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 Chest pain most likely secondary to congestive heart failure. Cardiac angiogram done on 05/07 shows nonobstructive coronaries. Positive delta troponins. Lipid panel appreciated. CTA ruled out PE. Echocardiogram results appreciated for EF of 23%, grade 1 diastolic dysfunction, regional wall motion normality with diffuse hypokinesia of the mid and apical inferior lateral wall segment, apex. Continue with aspirin, statin. Stop Plavix. Stop Lovenox and switch to home dose Xarelto. Congestive heart failure: Most likely secondary to Takotsubo's: Nonischemic cardiomyopathy: Currently on 4 L of oxygen supplementation. Home oxygen for as well. Oral Lasix 40 mg daily. Potassium 20 mg daily. Continue with uptitrating heart failure medications. Continue with Coreg 3.125 mg twice daily, losartan 25 mg daily. Aldactone 12.5 mg daily. Repeat limited echocardiogram. Shortness of breath: Most likely a combination of lung malignancy, congestive heart failure less likely pneumonia. Flu swab, COVID-19 negative. MRSA swab negative. Sputum culture results awaited. Continue with Zosyn. DuoNebs every 6 hour, budesonide twice daily. 50 cc of pleural fluid drained through [place] drain. Chest x-ray. Adenocarcinoma of lung with metastasis to brain: Follows up with Dr. Almeida. Sarah meza to continue treatment. Post whole brain radiation. Continue with home dose of dexamethasone. COPD: Not in exacerbation. History of superior vena cava thrombosis/pulmonary vein thrombosis: CTA as above. Stop Lovenox. Start home dose Xarelto. CODE STATUS: Discussed in detail with the patient. She wants to be full code. She wants to continue treatment for cancer as an outpatient. She has even been offered hospice by Dr. Almeida in the past but wants to continue the treatment plan for now. Protonix for PUD prophylaxis. Cardiac diet. Discharge planning: Most likely discharge in next 24 hours while heart failure medications are adjusted. Attestations Medical Necessity Statement*: Giurgius for hospitalization for management of shortness of breath secondary to congestive failure, nonischemic cardiomyopathy while heart failure medications were adjusted Time Spent in Patient Care: Greater than 35 minutes Coding Level of Care Code Acute Vice President Quality Assurance for Chg Fwd Diagnoses Chest pain R07.9 Chest pain type: unspecified Shortness of breath R06.02 Atrial flutter with rapid ventricular response I48.92 Superior vena cava thrombosis I82.210 Pulmonary venous thrombosis I26.99 Pneumonia J18.9 Adenocarcinoma, lung C34.91 Laterality: right Brain metastasis C79.31 Takotsubo cardiomyopathy I51.81 Nonischemic cardiomyopathy I42.8
--- NOTE | 2021-05-08 14:51 | USCV_ITS ---
Iram Denis Age: 66 Gender: F : 1955 Exam Date: 05/08/2021 15:07 Ordering Phys: Clay Isabel MD Technologist: Dina Rea [place] [facility] [place] WITH REPAIR BP: 85 / 52 HR: 75 Rhythm: Sinus Technical Quality: Adequate MEASUREMENTS (Male / Female) Normal Values 2D ECHO LV Chamber Size 3.1 cm RV Chamber Size 2.0 cm LVOT Diameter 1.7 cm LV Ejection Fraction MOD 2C 40.1 % LV Ejection Fraction 2C AL 38.4 % LA Diameter 2.7 cm LA Width 2.4 cm LA Height 3.6 cm RA Width 2.2 cm RA Height 3.3 cm Aorta at Sinotubular Diameter 3.4 cm FINDINGS Left Ventricle Normal left ventricular cavity size. Moderate left ventricular hypertrophy of concentric type. Severely decreased left ventricular systolic function. Left ventricular ejection fraction is estimated at 38 %.global left ventricular hypokinesis. Right Ventricle The right ventricle is normal in size and function. Right Atrium The right atrium is normal in size. Left Atrium The left atrium is normal in size. Mitral Valve Aortic Valve Tricuspid Valve Pulmonic Valve Pericardium Normal pericardium without effusion. Aorta CONCLUSIONS Limited echo to assess LV function 1-Normal left ventricular cavity size. Moderate left ventricular hypertrophy of concentric type. Severely decreased left ventricular systolic function. Left ventricular ejection fraction is estimated at 38 %.global left ventricular hypokinesis. 2-There is no pericardial effusion. 3-When compared to the prior echocardiogram dated 06 May 2021 left ventricle ejection fraction has improved from severely depressed 26% to 38%. Akosua Meade MD (Electronically Signed) Final Date: 08 May 2021 18:31 S
--- NOTE | 2021-05-08 19:13 | PM.PN ---
Subjective Subjective: Interval history: Status post left heart cath yesterday which did not show significant obstructive coronary artery disease. Left ventricle ejection fraction was moderately reduced around 40%. It was consistent with Takotsubo/stress-induced cardiomyopathy Medications: Medication Review Details: Current Medications Acetaminophen (Acetaminophen 325 Mg Tablet) 650 mg PO Q6H PRN PRN Reason: Mild/Mod Pain Or Temp >/= 101 Al Hydrox/Mg Hydrox/Simethicone (Nnum-Olb-Qmpedroam-Jesenia 30 Ml Udc) 30 ml PO Q15M PRN PRN Reason: INDIGESTION Albuterol Sulfate (Albuterol 2.5 Mg/0.5 Ml Neb) 2.5 mg INHALATION Q4H.RESPIRATORY PRN PRN Reason: SHORTNESS OF BREATH Last Admin: 05/07/21 18:10 Dose: 2.5 mg Documented by: Albuterol/Ipratropium (Ipratropium-Albuterol 3 Ml Neb) 3 ml INHALATION Q6H.RESPIRATORY [facility] Last Admin: 05/07/21 08:34 Dose: 3 ml Documented by: Amiodarone HCl (Amiodarone 200 Mg Tablet) 200 mg PO BID [facility] Last Admin: 05/07/21 18:17 Dose: 200 mg Documented by: Aspirin (Aspirin 81 Mg Ec Tablet) 81 mg PO DAILY [facility] Last Admin: 05/07/21 09:36 Dose: 81 mg Documented by: Atropine Sulfate (Atropine 1 Mg/Ml Sdv 1 Ml) 0.5 mg IVP PRN PRN PRN Reason: Symptomatic bradycardia Bisacodyl (Bisacodyl 5 Mg Tablet) 10 mg PO DAILY PRN; Protocol PRN Reason: Constipation (see protocol) Budesonide (Budesonide 0.5 Mg/2 Ml Neb) 0.5 mg INHALATION BID [facility] Last Admin: 05/07/21 18:10 Dose: 0.5 mg Documented by: Carvedilol (Carvedilol 3.125 Mg Tablet) 3.125 mg PO BID [facility] Last Admin: 05/07/21 18:17 Dose: 3.125 mg Documented by: Clonazepam (Clonazepam 0.5 Mg Tablet) 0.5 mg PO TID PRN PRN Reason: Anxiety Last Admin: 05/07/21 09:50 Dose: 0.5 mg Documented by: Clopidogrel Bisulfate (Clopidogrel 75 Mg Tablet) 75 mg PO DAILY [facility] Last Admin: 05/07/21 09:36 Dose: 75 mg Documented by: Dexamethasone (Dexamethasone 4 Mg Tablet) 2 mg PO BID [facility] Last Admin: 05/07/21 18:17 Dose: 2 mg Documented by: Enoxaparin Sodium (Enoxaparin 60 Mg/0.6 Ml Syringe) 60 mg SUBCUT Q12H [facility] Last Admin: 05/07/21 00:07 Dose: Not Given Documented by: Ferrous Gluconate (Ferrous Gluconate 324 Mg Tablet) 324 mg PO BIDWM [facility] Last Admin: 05/07/21 18:17 Dose: 324 mg Documented by: Piperacillin Sod/Tazobactam (Sod 3.375 gm/ Sodium Chloride) 50 mls @ 12.5 mls/hr IV Q8H [facility]; Protocol Last Admin: 05/07/21 18:18 Dose: 12.5 mls/hr Documented by: Sodium Chloride (Sodium Chloride 0.9%) 1,000 mls @ 50 mls/hr IV .Q20H [facility] Last Admin: 05/07/21 08:00 Dose: 50 mls/hr Documented by: Losartan Potassium (Losartan 50 Mg Tablet) 25 mg PO DAILY [facility] Last Admin: 05/07/21 09:37 Dose: 25 mg Documented by: Magnesium Hydroxide (Magnesium Hydroxide 30 Ml Udc) 30 ml PO DAILY PRN; Protocol PRN Reason: Constipation (see protocol) Magnesium Hydroxide (Magnesium Hydroxide 30 Ml Udc) 30 ml PO DAILY PRN PRN Reason: CONSTIPATION Morphine Sulfate (Morphine 4 Mg/Ml Sdv 1 Ml) 2 mg IVP Q4H PRN PRN Reason: SEVERE PAIN Naloxone HCl (Naloxone 0.4 Mg/Ml Sdv) 0.1 mg IVP Q2M PRN PRN Reason: RESPIRATORY RATE < 8/MIN Nitroglycerin (Nitroglycerin 0.4 Mg Sublingual Tablet) 0.4 mg SUBLINGUAL Q5M PRN PRN Reason: CHEST PAIN Ondansetron HCl (Ondansetron 2 Mg/Ml Sdv 2 Ml) 4 mg IVP Q6H PRN PRN Reason: NAUSEA AND VOMITING Oxycodone HCl (Oxycodone 5 Mg Ir Tab/Cap) 10 mg PO Q4H PRN PRN Reason: MODERATE PAIN Pantoprazole Sodium (Pantoprazole Dr 40 Mg Tablet) 40 mg PO DAILY [facility] Last Admin: 05/07/21 09:36 Dose: 40 mg Documented by: Spironolactone (Spironolactone 25 Mg Tablet) 25 mg PO DAILY [facility] Last Admin: 05/07/21 09:37 Dose: 25 mg Documented by: Temazepam (Temazepam 15 Mg Capsule) 15 mg PO BEDTIME PRN PRN Reason: INSOMNIA Trazodone HCl (Trazodone 50 Mg Tablet) 50 mg PO BEDTIME PRN PRN Reason: Sleep Vitals/I&O/Wt Last Vital Signs Temp 97.5 F L 05/08/21 16:00 Pulse 73 05/08/21 16:00 Resp 18 05/08/21 16:00 BP 103/63 05/08/21 16:00 Pulse Ox 97 05/08/21 16:00 05/08/21 05/08/21 05/08/21 06:59 14:59 22:59 Intake Total 850.833 / 1530.833 410 / 410 440 / 850 Output Total 900 / 1350 1200 / 1200 Balance -49.167 / 180.833 -790 / -790 440 / -350 Weight last 48 hrs Weight 134 lb 14.4 oz Weight 138 lb 3.2 oz Physical Exam Chest: OTHER: GENERAL: Patient is alert, awake and oriented x3. NECK: No jugular vein distension. HEENT: No cyanosis. No icterus. No pallor. HEART: Regular S1 and S2. No murmur, rub or gallop. LUNGS: Clear to auscultate bilaterally. Urinary Catheter Management: Medina Latex: Cath Placed During This Visit: yes Reason for Continuing Indwelling Catheter: Accurate Measurement of Urinary Output in Critically Ill Patients Urinary Catheter Date of Insertion: 05/05/21 Urinary Catheter Time of Insertion: 19:30 Data : 05/07/21 02:32 05/08/21 03:47 Micro: Microbiology 05/05/21 22:45 Gram Stain - Final Sputum - Expectorated Sputum Sputum Culture - Final A&P Assessment and plan (1) NSTEMI (non-ST elevated myocardial infarction): Secondary to stress-induced cardiomyopathy hopefully ejection fraction will improve over period of time. Continue aspirin statin and beta-viri SUHAS inhibitor and aspirin Status: Deleted (2) Adenocarcinoma, lung: Follow-up with oncology Status: Acute Qualifiers: Laterality: right Qualified Code(s): C34.91 - Malignant neoplasm of unspecified part of right bronchus or lung (3) Brain metastasis: Follow-up with oncology Status: Acute (4) Pulmonary venous thrombosis: IV anticoagulation for the time being. Continue on the Lovenox tonight. May hold off on this in the morning. Status: Acute (5) Atrial fibrillation/flutter: Remains in sinus rhythm continue current regimen Status: Acute Plan Based on the patient's clinical progress and the results of the angiogram, further recommendations will be made. Attestations Medical Necessity Statement*: Patient require continuation hospitalization for above defined care Coding Level of Care Code Established Pt Acute Mounter Saxophones for Chg Fwd Patient Type Established History Detailed Exam Detailed Medical Decision Making Moderate Complexity Diagnoses NSTEMI (non-ST elevated myocardial infarction) I21.4 Adenocarcinoma, lung C34.91 Laterality: right Brain metastasis C79.31 Pulmonary venous thrombosis I26.99 Atrial fibrillation/flutter
--- NOTE | 2021-05-08 19:41 | PC.NURSE ---
Received report from MANISHA Mac. Patient resting in bed with eyes closed. Eyes spontaneously with verbal stimuli. Patient denies pain or needs presently. No distress observed. Will continue to monitor.
[2021-05-09] VITALS (13 sets, daily range): BP systolic 119–135; BP diastolic 65–79; PULSE 18–90; RESP 16–74; TEMP 36.1–37.3; O2SAT 87–99
[2021-05-09] MEDS: piperacillin-tazobactam 3.375 GM in sodium chloride 0.9% (plus) 50 ML IV ×2 (00:01→08:32)
[2021-05-09] MEDS: ipratropium-albuterol 3 mL Neb INHALATION ×3 (03:16→14:42)
[2021-05-09 06:34] LABS: Basophils % 0.2 %; Hematocrit 32.6 % (37.0-47.0); Hemoglobin 10.1 g/dL (11.5-15.3); Lymphocytes # 0.3 10^3/uL (0.8-4.8); Lymphocytes % 1.7 %; Mean Corpuscular Hemoglobin 27.8 pg (28.0-34.0); Mean Corpuscular Volume 89.8 fl (81-99); Mean Platelet Volume 9.4 fL (7.4-10.4); Monocytes % 6.8 %; Neutrophils # 13.01 10^3/uL (1.8-7.7); Neutrophils % 88.7 %; Nucleated Red Blood Cells % 0 %; Platelet Count 303 10^3/cmm (130-400); Red Blood Count 3.63 10^6/uL (4.1-5.3); Red Cell Distribution Width 17.2 % (12.1-15.1); White Blood Count 14.7 10^3/uL (4.0-10.0)
[2021-05-09 06:52] LABS: Alanine Aminotransferase 58 U/L (0-33); Albumin Level 3.5 g/dL (3.5-5.2); Alkaline Phosphatase 114 IU/L (35-105); Anion Gap 11.7 (5-19); Aspartate Amino Transferase 29 U/L (0-32); Blood Urea Nitrogen 23 mg/dL (8-23); Calcium 8.7 mg/dL (8.5-10.5); Carbon Dioxide 34 mmol/L (22-29); Chloride 95 mmol/L (98-107); Glomerular Filtration Rate 123.1 mL/min (90-130); Glucose 90 mg/dL (65-115); Osmolality Calculated 287 mOsm/kg (285-295); Potassium 3.7 mmol/L (3.5-5.1); Sodium 137 mmol/L (136-145); Total Bilirubin 0.4 mg/dL (0.15-1.2); Total Protein 5.5 g/dL (6.6-8.7)
[2021-05-09] MEDS: pantoprazole DR 40 mg Tablet PO (08:29)
[2021-05-09] MEDS: rivaroxaban 10 mg Tablet 15 MG PO (08:29)
[2021-05-09] MEDS: dexamethasone 4 mg Tablet 2 MG PO (08:29)
[2021-05-09] MEDS: ferrous gluconate 324 mg Tablet PO (08:29)
[2021-05-09] MEDS: carvedilol 3.125 mg Tablet PO (08:30)
[2021-05-09] MEDS: FUROsemide 40 mg Tablet PO (08:30)
[2021-05-09] MEDS: spironolactone 25 mg Tablet 12.5 MG PO (08:30)
[2021-05-09] MEDS: amiodarone 200 mg Tablet PO (08:30)
[2021-05-09] MEDS: aspirin 81 mg EC Tablet PO (08:31)
[2021-05-09] MEDS: losartan 50 mg Tablet 25 MG PO (08:31)
[2021-05-09] MEDS: potassium chloride ER 20 mEq Tablet PO (08:31)
[2021-05-09] MEDS: budesonide 0.5 mg/2 mL Neb INHALATION (09:42)
--- NOTE | 2021-05-09 12:32 | PM.DCS ---
Discharge Providers Date of Admission: 05/05/21 14:30 Date of Discharge: May 09, 2021 Attending Provider at Admission: Clay Isabel MD Attending Provider at Discharge: Clay Isabel MD Consults: Cardiology: Dr. Godoy/Dr. Meade Primary Care Provider: Jayna Schmitt MD Diagnoses at Discharge Discharge Diagnosis (1) NSTEMI (non-ST elevated myocardial infarction): Status: Deleted (2) Adenocarcinoma, lung: Status: Acute Qualifiers: Laterality: right Qualified Code(s): C34.91 - Malignant neoplasm of unspecified part of right bronchus or lung (3) Brain metastasis: Status: Acute (4) Pulmonary venous thrombosis: Status: Acute (5) Atrial fibrillation/flutter: Status: Acute Reason for Visit Reason for Visit: CHEST PRESSURE Hospital Course Hospital Course History as per HPI: Iram Denis is a 66 year old female with past medical history of adenocarcinoma of lung, metastasis to brain on whole brain radiation with last treatment on 03/23/2021, superior vena cava thrombosis, pulmonary vein thrombosis, COPD, hypertension, intermittent atrial fibrillation who presents to the hospital today with complaining of difficulty in breathing which started last night more than usual.? Patient is chronically on 4 L of oxygen supplementation and currently saturating 94% on the same 4 L.? Patient states she has been having cough more than usual along with expectoration for last 3 days.? Expectoration is usually yellowish in color not bloodstained or foul-smelling.? Today morning she complained of retrosternal chest pain which is going from right to left without radiation so she presented to the ER.? Denies any nausea, vomiting, dizziness, palpitations.? Complains of on and off low-grade fever for last 1 week.? Has not been vaccinated for COVID-19.? Denies of any sick contacts. Blood work in the ER showed a white count 16.2, hemoglobin 11.9, platelet 341 with a left shift, sodium of 131, chloride of 94, creatinine 0.6, baseline troponin of 25 with delta of 73 in 2 hours, AST/ALT of 32/73,-phosphatase of 161, UA showing trace leuk esterase, negative nitrate with chest x-ray as below. Hospital course: Patient went to the hospital for further management of hypoxia secondary to possible congestive heart failure, right pleural effusion and adenocarcinoma of the lung along with chest pain. On admission patient was found to have elevated troponins which trended up. There was concerns for non-ST elevation PA so cardiology was consulted. Echocardiogram was done which showed global LV hypokinesia more so in apical region with a EF of 23% with grade 1 diastolic dysfunction. To rule out ischemic etiology patient underwent cardiac angiogram on 05/07 which showed nonobstructive CAD. Is believed cardiology for congestive heart failure of systolic nature is nonischemic and most likely Takotsubo. Repeat echocardiogram was done on 05/08 which showed improvement in EF to 38%. She was started on regimen for heart failure. During hospitalization there were concerns for pneumonia for which she had remained on antibiotics. Patient has been on her baseline oxygen supplementation. Patient is fairly weak and safe discharge planning is discussed in detail with her. Patient denied going to SNF. Home health is being arranged for her. She has been discharged in hemodynamically stable condition on heart failure medication at baseline oxygen supplementation is advised to follow-up with her primary care provider within next 1 week. Home O2 evaluation has been done prior to discharge. Multiple goals of care discussion was done with patient and patient's family. Patient wants to remain full code and pursue treatment going forward for cancer with metastasis Physical Exam Narrative: EXAM NARRATIVE: General: No acute distress, AO x3, chronically ill-appearing, frail, pallor present HEENT: PERRLA, pupils bilaterally equal and reactive Chest: Bilateral bronchial breath sounds, decreased air entry in right upper zone with tympany present, coarse crackles present dispersed all over the lung griffiths otherwise equal good air entry bilaterally, decreased air entry right lower zone CVS: S1-S2 irregularly irregular, no murmurs, no tachycardia, no gallops, no rubs Abdomen: Soft, nontender, no organomegaly, bowel sounds present Neuro: No focal deficits, no facial deformity, AO x3, power 5/5 in all limbs Urinary Catheter Management: Medina Latex: Cath Placed During This Visit: yes Reason for Continuing Indwelling Catheter: Acute Urinary Retention or Obstruction Urinary Catheter Date of Insertion: 05/05/21 Urinary Catheter Time of Insertion: 19:30 Discharge Data Studies Completed and Pending Completed Studies During Hospitalization Category Date Time Status CTA chest [CT angio chest PE protcl [id number]] Urgent Cat Scan 05/05/21 15:01 Completed XR chest 1V portable [id number] Routine Exams 05/08/21 03:39 Completed XR chest 1V portable [id number] Stat Exams 05/05/21 10:54 Completed CV. echo complete* [id number] Routine Ultrasound 05/05/21 15:01 Completed CV. 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 Proximal main pulmonary arteries are normal. No evidence of pulmonary embolus. 2. Similar-appearing right hilar and suprahilar mass with narrowing of the right mainstem bronchus and right upper lobe collapse. This is similar to the prior examinations. 3. Right pleural drain with moderate right pleural effusion. 4. Improved aeration of the super segment right lower lobe compared to previous. 5. Left lower lobe opacity previously described has resolved. Chest X-Ray 05/08/21 03:39 IMPRESSION: 1. Tubes and catheters are unchanged from the prior exam. 2. Stable right pleuroparenchymal disease. 3. Nonspecific left lung base opacity favors atelectasis or pneumonia. Echocardiogram: 05/05/2021 ?CONCLUSIONS ?Multiple wall motion abnormalities with markedly diminished?ejection fraction of 23%.? 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 Trace aortic valve regurgitation. ?No intracardiac masses.? No pericardial effusion. ?Normal cardiac chamber sizes. ?Compared to the study from 07/30/2020, there is a marked decline?in the LV ejection fraction ?Dr Brianne Godoy MD [facility] ?(Electronically Signed) ?Final Date:? ? ? 06 May 2021 ? 09:17 Repeat echocardiogram: 05/08: CONCLUSIONS ?Limited echo to assess LV function ?1-Normal left ventricular cavity size. Moderate left ventricular?hypertrophy of concentric type. Severely decreased left?ventricular systolic function. Left ventricular ejection?fraction is estimated at 38 %.global left ventricular?hypokinesis.? ?2-There is no pericardial effusion. ?3-When compared to the prior echocardiogram dated left ventricle ejection fraction has improved from severely?depressed 26% to 38%. ?Akosua Meade MD ?(Electronically Signed) ?Final Date:? ? ? 08 May 2021 ? 18:31 Laboratory Results WBC 14.7 10^3/uL (4.0-10.0) H 05/09/21 05:57 RBC 3.63 10^6/uL (4.1-5.3) L 05/09/21 05:57 Hgb 10.1 g/dL (11.5-15.3) L 05/09/21 05:57 Hct 32.6 % (37.0-47.0) L 05/09/21 05:57 MCV 89.8 fl (81-99) 05/09/21 05:57 MCH 27.8 pg (28.0-34.0) L 05/09/21 05:57 MCHC 31.0 g/dL (30.0-36.0) 05/09/21 05:57 RDW 17.2 % (12.1-15.1) H 05/09/21 05:57 Plt Count 303 10^3/cmm (130-400) 05/09/21 05:57 MPV 9.4 fL (7.4-10.4) 05/09/21 05:57 Neut % (Auto) 88.7 % 05/09/21 05:57 Lymph % (Auto) 1.7 % 05/09/21 05:57 [place] % (Auto) 6.8 % 05/09/21 05:57 Eos % (Auto) 0.0 % 05/09/21 05:57 Baso % (Auto) 0.2 % 05/09/21 05:57 Neut # (Auto) 13.01 10^3/uL (1.8-7.7) H 05/09/21 05:57 Lymph # (Auto) 0.3 10^3/uL (0.8-4.8) L 05/09/21 05:57 [place] # (Auto) 1.0 10^3/uL (0.2-0.9) H 05/09/21 05:57 Eos # (Auto) 0.0 10^3/uL (0.0-0.8) 05/09/21 05:57 Baso # (Auto) 0.0 10^3/uL (0.0-0.1) 05/09/21 05:57 Nucleated RBC % (auto) 0 % 05/09/21 05:57 Nucleated RBCs # 0.0 /100WBC 05/09/21 05:57 APTT 48.4 SECONDS (23.9-36.7) H 05/06/21 11:05 Sodium 137 mmol/L (136-145) 05/09/21 05:57 Potassium 3.7 mmol/L (3.5-5.1) 05/09/21 05:57 Chloride 95 mmol/L (98-107) L 05/09/21 05:57 Carbon Dioxide 34 mmol/L (22-29) H 05/09/21 05:57 Anion Gap 11.7 (5-19) 05/09/21 05:57 BUN 23 mg/dL (8-23) 05/09/21 05:57 Creatinine 0.5 mg/dL (0.5-0.9) 05/09/21 05:57 GFR Calculation 123.1 mL/min (90-130) 05/09/21 05:57 Glucose 90 mg/dL (65-115) 05/09/21 05:57 Calculated Osmolality 287 mOsm/kg (285-295) 05/09/21 05:57 Calcium 8.7 mg/dL (8.5-10.5) 05/09/21 05:57 Phosphorus 4.2 mg/dL (2.5-4.5) 05/06/21 01:08 Magnesium 1.9 mg/dL (1.7-2.3) 05/08/21 03:47 Iron 24 ug/dL (37-145) L 05/05/21 11:59 TIBC 197 mcg/dl 05/05/21 11:59 % Saturation 12.1 % (20-50) L 05/05/21 11:59 Unsat Iron Binding 173 ug/dL (112-347) 05/05/21 11:59 Total Bilirubin 0.4 mg/dL (0.15-1.2) 05/09/21 05:57 AST 29 U/L (0-32) 05/09/21 05:57 ALT 58 U/L (0-33) H 05/09/21 05:57 Alkaline Phosphatase 114 IU/L (35-105) H 05/09/21 05:57 Creatine Kinase 20 U/L (26-192) L 05/05/21 09:50 Troponin T Gen 5 ng/L 118 ng/L (0-10) H* 05/06/21 01:08 Troponin T Baseline 25 ng/L (0-10) H 05/05/21 09:50 Troponin T 120 Minute 98.31 ng/L (0-10) H 05/05/21 11:59 Delta Troponin T 73.31 ABS# (0-10) H* 05/05/21 11:59 Troponin T Hi Sens 6Hr 153.4 ng/L (0-10) H 05/05/21 16:12 Troponin T Hi Sens 6Hr Delta 128.4 ng/L (0-12) H* 05/05/21 16:12 C-Reactive Protein 59.3 mg/L (0.0-4.9) H 05/05/21 11:59 NT-Pro-B Natriuret Pep 1373 pg/mL (0-125) H 05/08/21 03:47 Total Protein 5.5 g/dL (6.6-8.7) L 05/09/21 05:57 Albumin 3.5 g/dL (3.5-5.2) 05/09/21 05:57 Globulin 2.0 g/dL (1.3-4.6) 05/09/21 05:57 Triglycerides 106 mg/dL (0-150) 05/06/21 01:08 Cholesterol 184 mg/dL (0-200) 05/06/21 01:08 LDL Cholesterol, Calc 111 mg/dL (50-129) 05/06/21 01:08 Total VLDL Cholesterol 21 mg/dL (0-30) 05/06/21 01:08 HDL Cholesterol 52 mg/dL (60-100) L 05/06/21 01:08 Cholesterol/HDL Ratio 3.54 mg/dL (0.0-4.40) 05/06/21 01:08 Procalcitonin 0.12 ng/mL (0-0.5) 05/05/21 11:59 TSH 1.88 uIU/mL (0.27-4.20) 05/05/21 11:59 Urine Color Yellow (Yellow) 05/05/21 11:35 Urine Appearance Clear (CLEAR) 05/05/21 11:35 Urine pH 5 (5-7) 05/05/21 11:35 Ur Specific [place] 1.020 (1.005-1.030) 05/05/21 11:35 Urine Protein Neg (Negative) 05/05/21 11:35 Urine Glucose (UA) Norm (Normal) 05/05/21 11:35 Urine Ketones Negative (Negative) 05/05/21 11:35 Urine Blood 3+ (Negative) H 05/05/21 11:35 Urine Nitrate Negative (Negative) 05/05/21 11:35 Urine Bilirubin Neg (Negative) 05/05/21 11:35 Urine Urobilinogen 1 mg/dL (Negative) H 05/05/21 11:35 Ur Leukocyte Esterase Trace (Negative) H 05/05/21 11:35 Urine RBC 5-10 /hpf (0-2) H 05/05/21 11:35 Urine WBC 5-10 /hpf (0-5) H 05/05/21 11:35 Ur Squamous Epith Cells 10-15 /hpf (0-5) H 05/05/21 11:35 Amorphous Sediment Not Reportable 05/05/21 11:35 Urine Bacteria 1+ /hpf (NONE) H 05/05/21 11:35 Hyaline Casts 0-4 /lpf H 05/05/21 11:35 Urine Mucus 2+ /hpf 05/05/21 11:35 Coronavirus 229E (PCR) Not detected (NOT DETECT) 05/05/21 Unknown Influenza Type A Ag Negative (Negative) 05/05/21 15:54 Influenza Type B Ag Negative (Negative) 05/05/21 15:54 SARS-CoV-2 (PCR) Not detected (NOT DETECT) 05/05/21 Unknown SARS-CoV-2 RNA (RT-PCR) Cancelled 05/05/21 12:33 SARS-CoV-2 Ag (Rapid) Negative (Negative) 05/05/21 15:54 Vitals Last Vital Signs Temp 99.1 F 05/09/21 10:03 Pulse 90 05/09/21 10:03 Resp 24 H 05/09/21 10:03 BP 119/65 05/09/21 10:03 Pulse Ox 91 05/09/21 10:03 Discharge Plan Discharge Patient Disposition: Home Condition: Stable Prescriptions: New losartan 50 mg Tablet 25 mg PO DAILY 30 Days Qty: 30 0RF furosemide 40 mg Tablet 40 mg PO DAILY@0800 30 Days Qty: 30 0RF aspirin 81 mg Tablet,Delayed Release (Dr/Ec) 81 mg PO DAILY 30 Days Qty: 30 0RF carvedilol 3.125 mg Tablet 3.125 mg PO BID 30 Days Qty: 60 0RF potassium chloride [Klor-Con M20] 20 mEq Tablet,Er Particles/Crystals 20 meq PO DAILY 30 Days Qty: 30 0RF pantoprazole 40 mg Tablet,Delayed Release (Dr/Ec) 40 mg PO DAILY 30 Days Qty: 30 0RF ferrous gluconate 324 mg (37.5 mg iron) Tablet 324 mg PO BIDWM 30 Days Qty: 60 0RF amoxicillin-pot clavulanate [Augmentin] 500-125 mg tablet 1 tab PO TID 3 Days Qty: 9 0RF levofloxacin 500 mg tablet 500 mg PO Q24H 3 Days Qty: 3 0RF Continued ipratropium-albuterol 0.5 mg-3 mg(2.5 mg base)/3 mL solution for nebulization 3 ml INHALATION TID PRN (Reason: Shortness Of Breath) 30 Days Qty: 360 4RF clonazepam 0.5 mg tablet 0.5 mg PO TID PRN (Reason: Anxiety) Qty: 90 0RF Label Comments: patient mentioned starting xanax? need to confirm next visit 03-16-21 trazodone 50 mg tablet 50 mg PO BEDTIME PRN (Reason: Sleep) 0RF oxycodone 10 mg tablet 10 mg PO Q4H PRN (Reason: Pain) 0RF albuterol sulfate [ProAir HFA] 90 mcg/actuation HFA aerosol inhaler 2 puff INHALATION QID PRN (Reason: Shortness Of Breath) 0RF Label Comments: patient mentioned starting xanax? need to confirm next visit 03-16-21 amiodarone 200 mg tablet 200 mg PO BID 0RF Label Comments: patient mentioned starting xanax? need to confirm next visit 03-16-21 Xarelto 15 mg tablet 15 mg PO DAILY MDD ON HOLD 0RF Label Comments: patient mentioned starting xanax? need to confirm next visit 03-16-21 Rx Instructions: ON HOLD ext med history shows last filled 03/30/21 30d/s dexamethasone 4 mg tablet 2 mg PO BID 0RF Discharge Orders: Discharge Order (Routine); Ordered 05/09/21 Ordered By: Clay Isbael Referrals: Jayna Schmitt MD [Primary Care Provider] - 7-10 days Brianne Godoy MD [Physician] - 2 weeks Discharge Diet: Usual diet Discharge Activity: Resume usual activity Patient Instructions: Opioid Safety Activity Restrictions/Additional Instructions: Please follow-up with your primary care provider within next 1 week. Please follow-up with cardiology within next 2 weeks. Please repeat BMP when you follow-up with a primary care provider in 1 week. Take Augmentin Levaquin to the antibiotics for next 3 days. Please restrict oral intake to around 1500 cc to 2 L of liquid daily. Please avoid excess salt. You should not intake more than 2 g of salt daily. Discharge Attestations Time Spent in Discharge Care*: greater than 30 min Specific Discharge Activities: educating patient, educating and/or supporting family/caregiver, discussing with human services case manager/social workers/dc planners, documenting/other paperwork and evaluating patient/reviewing data Status at Discharge: Cognitive status at discharge: cognitively intact, Behavioral status at discharge: cooperative, Functional status at discharge: other assisted ambulation, Overall status at discharge: patient is back to baseline Quality Metrics Clinical Quality Measures [ No reported AMI, CVA or VTE this stay] Coding Level of Care Code Acute [facility] DC note Diagnoses NSTEMI (non-ST elevated myocardial infarction) I21.4 Adenocarcinoma, lung C34.91 Laterality: right Brain metastasis C79.31 Pulmonary venous thrombosis I26.99 Atrial fibrillation/flutter
--- NOTE | 2021-05-09 14:05 | PM.PN ---
Subjective Subjective: Interval history: Denies any complaint stable from cardiac perspective Medications: Medication Review Details: Current Medications Acetaminophen (Acetaminophen 325 Mg Tablet) 650 mg PO Q6H PRN PRN Reason: Mild/Mod Pain Or Temp >/= 101 Al Hydrox/Mg Hydrox/Simethicone (Dhuw-Kft-Hlvkzrxdp-Jesenia 30 Ml Udc) 30 ml PO Q15M PRN PRN Reason: INDIGESTION Albuterol Sulfate (Albuterol 2.5 Mg/0.5 Ml Neb) 2.5 mg INHALATION Q4H.RESPIRATORY PRN PRN Reason: SHORTNESS OF BREATH Last Admin: 05/07/21 18:10 Dose: 2.5 mg Documented by: Albuterol/Ipratropium (Ipratropium-Albuterol 3 Ml Neb) 3 ml INHALATION Q6H.RESPIRATORY FOR[facility]LY [facility] Last Admin: 05/07/21 08:34 Dose: 3 ml Documented by: Amiodarone HCl (Amiodarone 200 Mg Tablet) 200 mg PO BID [facility] Last Admin: 05/07/21 18:17 Dose: 200 mg Documented by: Aspirin (Aspirin 81 Mg Ec Tablet) 81 mg PO DAILY [facility] Last Admin: 05/07/21 09:36 Dose: 81 mg Documented by: Atropine Sulfate (Atropine 1 Mg/Ml Sdv 1 Ml) 0.5 mg IVP PRN PRN PRN Reason: Symptomatic bradycardia Bisacodyl (Bisacodyl 5 Mg Tablet) 10 mg PO DAILY PRN; Protocol PRN Reason: Constipation (see protocol) Budesonide (Budesonide 0.5 Mg/2 Ml Neb) 0.5 mg INHALATION BID [facility] Last Admin: 05/07/21 18:10 Dose: 0.5 mg Documented by: Carvedilol (Carvedilol 3.125 Mg Tablet) 3.125 mg PO BID [facility] Last Admin: 05/07/21 18:17 Dose: 3.125 mg Documented by: Clonazepam (Clonazepam 0.5 Mg Tablet) 0.5 mg PO TID PRN PRN Reason: Anxiety Last Admin: 05/07/21 09:50 Dose: 0.5 mg Documented by: Clopidogrel Bisulfate (Clopidogrel 75 Mg Tablet) 75 mg PO DAILY [facility] Last Admin: 05/07/21 09:36 Dose: 75 mg Documented by: Dexamethasone (Dexamethasone 4 Mg Tablet) 2 mg PO BID [facility] Last Admin: 05/07/21 18:17 Dose: 2 mg Documented by: Enoxaparin Sodium (Enoxaparin 60 Mg/0.6 Ml Syringe) 60 mg SUBCUT Q12H [facility] Last Admin: 05/07/21 00:07 Dose: Not Given Documented by: Ferrous Gluconate (Ferrous Gluconate 324 Mg Tablet) 324 mg PO BIDWM [facility] Last Admin: 05/07/21 18:17 Dose: 324 mg Documented by: Piperacillin Sod/Tazobactam (Sod 3.375 gm/ Sodium Chloride) 50 mls @ 12.5 mls/hr IV Q8H [facility]; Protocol Last Admin: 05/07/21 18:18 Dose: 12.5 mls/hr Documented by: Sodium Chloride (Sodium Chloride 0.9%) 1,000 mls @ 50 mls/hr IV .Q20H [facility] Last Admin: 05/07/21 08:00 Dose: 50 mls/hr Documented by: Losartan Potassium (Losartan 50 Mg Tablet) 25 mg PO DAILY [facility] Last Admin: 05/07/21 09:37 Dose: 25 mg Documented by: Magnesium Hydroxide (Magnesium Hydroxide 30 Ml Udc) 30 ml PO DAILY PRN; Protocol PRN Reason: Constipation (see protocol) Magnesium Hydroxide (Magnesium Hydroxide 30 Ml Udc) 30 ml PO DAILY PRN PRN Reason: CONSTIPATION Morphine Sulfate (Morphine 4 Mg/Ml Sdv 1 Ml) 2 mg IVP Q4H PRN PRN Reason: SEVERE PAIN Naloxone HCl (Naloxone 0.4 Mg/Ml Sdv) 0.1 mg IVP Q2M PRN PRN Reason: RESPIRATORY RATE < 8/MIN Nitroglycerin (Nitroglycerin 0.4 Mg Sublingual Tablet) 0.4 mg SUBLINGUAL Q5M PRN PRN Reason: CHEST PAIN Ondansetron HCl (Ondansetron 2 Mg/Ml Sdv 2 Ml) 4 mg IVP Q6H PRN PRN Reason: NAUSEA AND VOMITING Oxycodone HCl (Oxycodone 5 Mg Ir Tab/Cap) 10 mg PO Q4H PRN PRN Reason: MODERATE PAIN Pantoprazole Sodium (Pantoprazole Dr 40 Mg Tablet) 40 mg PO DAILY [facility] Last Admin: 05/07/21 09:36 Dose: 40 mg Documented by: Spironolactone (Spironolactone 25 Mg Tablet) 25 mg PO DAILY [facility] Last Admin: 05/07/21 09:37 Dose: 25 mg Documented by: Temazepam (Temazepam 15 Mg Capsule) 15 mg PO BEDTIME PRN PRN Reason: INSOMNIA Trazodone HCl (Trazodone 50 Mg Tablet) 50 mg PO BEDTIME PRN PRN Reason: Sleep Vitals/I&O/Wt Last Vital Signs Temp 99.1 F 05/09/21 13:29 Pulse 90 05/09/21 13:29 Resp 24 H 05/09/21 13:29 BP 119/65 05/09/21 13:29 Pulse Ox 91 05/09/21 13:29 05/08/21 05/09/21 05/09/21 22:59 06:59 14:59 Intake Total 490 / 900 50 / 950 Output Total 750 / 1950 800 / 800 Balance 490 / -300 -700 / -1000 -800 / -800 Weight last 48 hrs Weight 134 lb 1.6 oz Weight 134 lb 14.4 oz Physical Exam Chest: OTHER: GENERAL: Patient is alert, awake and oriented x3. NECK: No jugular vein distension. HEENT: No cyanosis. No icterus. No pallor. HEART: Regular S1 and S2. No murmur, rub or gallop. LUNGS: Clear to auscultate bilaterally. Urinary Catheter Management: Medina Latex: Cath Placed During This Visit: yes Reason for Continuing Indwelling Catheter: Acute Urinary Retention or Obstruction Urinary Catheter Date of Insertion: 05/05/21 Urinary Catheter Time of Insertion: 19:30 Data : 05/09/21 05:57 05/09/21 05:57 Micro: Microbiology 05/05/21 22:45 Gram Stain - Final Sputum - Expectorated Sputum Sputum Culture - Final A&P Assessment and plan (1) NSTEMI (non-ST elevated myocardial infarction): Stable doing fine from a cardiovascular perspective. Continue current regimen including beta-viri statin and Plavix for at least 1 month if high bleeding risk Status: Deleted (2) Adenocarcinoma, lung: Follow-up with oncology Status: Acute Qualifiers: Laterality: right Qualified Code(s): C34.91 - Malignant neoplasm of unspecified part of right bronchus or lung (3) Brain metastasis: Follow-up with oncology Status: Acute (4) Pulmonary venous thrombosis: IV anticoagulation for the time being. Continue on the Lovenox tonight. May hold off on this in the morning. Status: Acute (5) Atrial fibrillation/flutter: Remains in sinus rhythm continue current regimen Status: Acute Plan Based on the patient's clinical progress and the results of the angiogram, further recommendations will be made. 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
[2021-05-09] MEDS: CLONazepam 0.5 mg Tablet PO (14:48)
== END 2021-05-09 15:15 | disposition home health service (06) | DRG 286 ==
LOC: ER 16:31 → CSU 17:07
PROVIDERS: Family Medicine; Internal Medicine Cardiovascular Disease; Admitting Provider Student in an Organized Health Care Education/Training Program; Emergency Provider Family Medicine; PCP Internal Medicine; Visit Provider Student in an Organized Health Care Education/Training Program
DX: I11.0 Hypertensive heart disease with heart failure (principal); J18.9 Pneumonia, unspecified organism; C34.91 Malignant neoplasm of unspecified part of right bronchus or lung; C79.31 Secondary malignant neoplasm of brain; J44.0 Chronic obstructive pulmonary disease with (acute) lower respiratory infection; I50.20 Unspecified systolic (congestive) heart failure; I25.10 Atherosclerotic heart disease of native coronary artery without angina pectoris; Z79.899 Other long term (current) drug therapy; M17.11 Unilateral primary osteoarthritis, right knee; Z95.828 Presence of other vascular implants and grafts; Z86.711 Personal history of pulmonary embolism; I48.91 Unspecified atrial fibrillation; Z99.81 Dependence on supplemental oxygen; Z79.51 Long term (current) use of inhaled steroids; Z79.891 Long term (current) use of opiate analgesic; I25.5 Ischemic cardiomyopathy; Z87.891 Personal history of nicotine dependence
CPT/HCPCS: 36415; 36592; 51702; 71045; 71275; 80048; 80053; 80061; 81001; 82550; 83540; 83550; 83735; 83880; 84100; 84145; 84443; 84484; 85025; 85730; 86140; 86403; 87070; 87205; 87426; 87449; 87635; 87641; 87804; 93005; 93306; 93308; 93452; 93458; 94640; 96365; 96366; 96367; 96372; 96375; 97110; 97162; 97530; 99291; C1760; C1769; C1887; C1894; J0696; J1644; J1650; J1940; J2250; J2270; J2405; J2543; J3010; J3370; J3490; J7030; J7050; J7611; J7626; J8540; P9047; Q0163; Q9967

== ENCOUNTER 2021-05-22 10:20 | Emergency (ER) | payer MEDICARE, MEDICAID, SELFPAY ==
[2021-05-22] VITALS (7 sets, daily range): BP systolic 88–124; BP diastolic 58–73; PULSE 76–83; RESP 14–20; TEMP 36.6; O2SAT 90–99; BMI 22.3
--- NOTE | 2021-05-22 10:58 | W.ED.GENADLT ---
HPI - General Adult General: Chief complaint: General Medical Stated complaint: low bp Time Seen by Provider: 05/22/21 10:47 Source: patient Mode of arrival: EMS History of Present Illness: 66-year-old female presents emergency room with report of hypotension. Patient is usually on 5 L by nasal cannula satting normal on that. She has been on antibiotics for presumed pneumonia but she is not been able to take them because she is unable to swallow the large pills Onset (ago): hour(s) Severity: moderate Relieving factors: none Associated symptoms: Reports decreased appetite, dyspnea and weakness; Deny chest pain, confusion, cough, diaphoresis, fevers/chills, headache(s), malaise, nausea, rash, palpitations, seizures, short of breath, syncope or vomiting Review of Systems Const: Denies: malaise or diaphoresis ENMT: Denies: throat pain, ear or mastoid pain, nasal discharge or nasal congestion Card: Denies: chest pain, palpitations or syncope Resp: Reports: dyspnea and non-productive cough GI: Denies: nausea or vomiting : Denies: flank pain, difficulty voiding, dysuria, urinary frequency or urinary urgency Skin/Breast: Denies: rash Neuro: Denies: headache(s) or confusion PFSH ED PFSH: Medical History Acute respiratory failure Adenocarcinoma, lung Atrial fibrillation/flutter Atrial flutter with rapid ventricular response Brain metastasis COPD (chronic obstructive pulmonary disease) Hyponatremia Lung cancer Lung mass Osteoarthritis of left knee Panic disorder [episodic paroxysmal anxiety] Port-A-Cath in place 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 Surgical History Hx of cholecystectomy S/P bronchoscopy Family History Other CAD (coronary artery disease) Cancer Dementia Hypertension Lung disease Stroke Denies family history of Diabetes Hyperlipidemia Chronic kidney disease (CKD) Family history of premature coronary artery disease Social History Quit status (tobacco): has quit using tobacco Year quit tobacco: 2020 Smoking risk assessment/counseling performed?: Yes Tobacco counseling given: counseling >3 minutes Alcohol intake: current Alcohol intake frequency: few times a month Alcohol type: beer Counseling given: No Counseling given: No Lives independently: Yes Household members: family Marital status: Current occupational status: retired 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, 2 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 in back with no handrails, advise History of recent travel: No Current gender identity: Female Physical Exam Const: COMMON NORMALS: no acute distress GENERAL APPEARANCE: cooperative and comfortable ORIENTATION/CONSCIOUSNESS: Yes awake, Yes oriented to person, Yes oriented to place and Yes oriented to time HENMT: COMMON NORMALS: normocephalic, atraumatic, external ears normal, EAC's normal, TM's normal bilaterally and Normal nasal mucous membranes and turbinates present HEAD & SCALP: normocephalic and atraumatic NOSE: Normal nasal mucous membranes and turbinates present EXTERNAL EAR: Yes external ears normal EXTERNAL AUDITORY CANAL: EAC's normal TYMPANIC MEMBRANE: TM's normal bilaterally Eye: COMMON NORMALS: Equal, round and reactive pupils present, EOMs intact bilaterally, conjunctivae normal and no scleral icterus CONJUNCTIVA: Yes conjunctivae normal PUPIL: Yes Equal, round and reactive pupils present Neck/C-Spine: COMMON NORMALS: no JVD Lymph: LYMPHATIC: no lymphadenopathy noted and no lymphedema noted Resp: COMMON NORMALS: normal respiratory effort, No retractions, No use of accessory muscles and clear to auscultation bilaterally AUSCULTATION: clear to auscultation bilaterally Cardio: COMMON NORMALS: no JVD, regular rate, regular rhythm and No murmurs present (Cardio) RATE: regular rate RHYTHM: regular rhythm GI: COMMON NORMALS: Soft to palpation and No hepatosplenomegaly present AUSCULTATION: Yes normoactive bowel sounds PALPATION: Yes Soft to palpation, No Tenderness to palpation present (GI), No Guarding due to palpation present (GI) and Yes No hepatosplenomegaly present Extremity: COMMON NORMALS: normal to inspection, capillary refill normal, no clubbing, cyanosis or edema, no calf tenderness and no pedal edema Neuro: SENSORIUM/ORIENTATION: Yes oriented to person, Yes oriented to place and Yes oriented to time Skin: COMMON NORMALS: no rashes or lesions noted GENERAL SKIN EXAM: no rashes or lesions noted Course Vital Signs: Vital signs: Vital Signs Temperature 97.9 F 05/22/21 10:32 Pulse Rate 83 05/22/21 14:49 Respiratory Rate 14 05/22/21 14:49 Blood Pressure 88/60 05/22/21 14:49 Pulse Oximetry 97 05/22/21 14:49 MDM - General Adult Medical Decision Making Blood pressure is improved. We will go ahead and stop her losartan we will switch her to initially plan Levaquin however pharmacy is concerned about interaction with amiodarone. We instead changed to Augmentin. Discussed case with Dr. Almeida he concurs with the treatment plan. Patient has persistent right pleural effusion which is old. Medical Records I reviewed the patient's medical records. Lab Data I reviewed the patient's lab results. : 05/22/21 11:05 05/22/21 11:05 Radiology Impressions Chest X-Ray 05/22/21 10:59 IMPRESSION: 1. Near complete opacification of the RIGHT thorax with minimal aerated lung centrally. Similar to the prior study. 2. There is volume loss in the RIGHT thorax with shift of the mediastinal structures to the RIGHT. Increased opacification is probably a combination of atelectasis and fluid. 3. Right-sided chest tube overlying the RIGHT lower thorax. No change in position. Laboratory Results WBC 18.2 10^3/uL (4.0-10.0) H 05/22/21 11:05 RBC 4.57 10^6/uL (4.1-5.3) 05/22/21 11:05 Hgb 12.5 g/dL (11.5-15.3) 05/22/21 11:05 Hct 37.6 % (37.0-47.0) 05/22/21 11:05 MCV 82.3 fl (81-99) 05/22/21 11:05 MCH 27.4 pg (28.0-34.0) L 05/22/21 11:05 MCHC 33.2 g/dL (30.0-36.0) 05/22/21 11:05 RDW 17.1 % (12.1-15.1) H 05/22/21 11:05 Plt Count 445 10^3/cmm (130-400) H 05/22/21 11:05 MPV 9.2 fL (7.4-10.4) 05/22/21 11:05 Neut % (Auto) 85.7 % 05/22/21 11:05 Lymph % (Auto) 2.3 % 05/22/21 11:05 [place] % (Auto) 5.6 % 05/22/21 11:05 Eos % (Auto) 0.1 % 05/22/21 11:05 Baso % (Auto) 0.2 % 05/22/21 11:05 Neut # (Auto) 15.62 10^3/uL (1.8-7.7) H 05/22/21 11:05 Lymph # (Auto) 0.4 10^3/uL (0.8-4.8) L 05/22/21 11:05 [place] # (Auto) 1.0 10^3/uL (0.2-0.9) H 05/22/21 11:05 Eos # (Auto) 0.0 10^3/uL (0.0-0.8) 05/22/21 11:05 Baso # (Auto) 0.0 10^3/uL (0.0-0.1) 05/22/21 11:05 Nucleated RBC % (auto) 0 % 05/22/21 11:05 Nucleated RBCs # 0.0 /100WBC 05/22/21 11:05 Sodium 127 mmol/L (136-145) L 05/22/21 11:05 Potassium 3.8 mmol/L (3.5-5.1) 05/22/21 11:05 Chloride 90 mmol/L (98-107) L 05/22/21 11:05 Carbon Dioxide 23 mmol/L (22-29) 05/22/21 11:05 Anion Gap 17.8 (5-19) 05/22/21 11:05 BUN 48 mg/dL (8-23) H 05/22/21 11:05 Creatinine 1.0 mg/dL (0.5-0.9) H 05/22/21 11:05 GFR Calculation 55.3 mL/min (90-130) L 05/22/21 11:05 Glucose 79 mg/dL (65-115) 05/22/21 11:05 Calculated Osmolality 276 mOsm/kg (285-295) L 05/22/21 11:05 Calcium 9.2 mg/dL (8.5-10.5) 05/22/21 11:05 Total Bilirubin 0.5 mg/dL (0.15-1.2) 05/22/21 11:05 AST 97 U/L (0-32) H 05/22/21 11:05 ALT 133 U/L (0-33) H 05/22/21 11:05 Alkaline Phosphatase 146 IU/L (35-105) H 05/22/21 11:05 Total Protein 5.5 g/dL (6.6-8.7) L 05/22/21 11:05 Albumin 2.8 g/dL (3.5-5.2) L 05/22/21 11:05 Globulin 2.7 g/dL (1.3-4.6) 05/22/21 11:05 Discharge Plan Discharge Patient Disposition: Home Clinical Impression: Lung cancer, Recurrent pleural effusion on right, Hypotension Condition: Stable Prescriptions: New levofloxacin 250 mg/10 mL solution 500 mg PO DAILY 10 Days 0RF Discontinued losartan 50 mg Tablet 25 mg PO DAILY 30 Days Qty: 30 0RF No Action ipratropium-albuterol 0.5 mg-3 mg(2.5 mg base)/3 mL solution for nebulization 3 ml INHALATION TID PRN (Reason: Shortness Of Breath) 30 Days Qty: 360 4RF clonazepam 0.5 mg tablet 0.5 mg PO TID PRN (Reason: Anxiety) Qty: 90 0RF Label Comments: patient mentioned starting xanax? need to confirm next visit 03-16-21 trazodone 50 mg tablet 50 mg PO BEDTIME PRN (Reason: Sleep) 0RF oxycodone 10 mg tablet 10 mg PO Q4H PRN (Reason: Pain) 0RF furosemide 40 mg Tablet 40 mg PO DAILY@0800 30 Days Qty: 30 0RF aspirin 81 mg Tablet,Delayed Release (Dr/Ec) 81 mg PO DAILY 30 Days Qty: 30 0RF carvedilol 3.125 mg Tablet 3.125 mg PO BID 30 Days Qty: 60 0RF Klor-Con M20 20 mEq Tablet,Er Particles/Crystals 20 meq PO DAILY 30 Days Qty: 30 0RF pantoprazole 40 mg Tablet,Delayed Release (Dr/Ec) 40 mg PO DAILY 30 Days Qty: 30 0RF ferrous gluconate 324 mg (37.5 mg iron) Tablet 324 mg PO BIDWM 30 Days Qty: 60 0RF albuterol sulfate [ProAir HFA] 90 mcg/actuation HFA aerosol inhaler 2 puff INHALATION QID PRN (Reason: Shortness Of Breath) 0RF Label Comments: patient mentioned starting xanax? need to confirm next visit 03-16-21 amiodarone 200 mg tablet 200 mg PO BID 0RF Label Comments: patient mentioned starting xanax? need to confirm next visit 03-16-21 Xarelto 15 mg tablet 15 mg PO DAILY MDD ON HOLD 0RF Label Comments: patient mentioned starting xanax? need to confirm next visit 03-16-21 Rx Instructions: ON HOLD ext med history shows last filled 03/30/21 30d/s dexamethasone 4 mg tablet 2 mg PO BID 0RF Discharge Orders: Discharge ED (Routine); Ordered 05/22/21 Ordered By: Aubrey Guthrie Referrals: Jayna Schmitt MD [Primary Care Provider] - Discharge Diet: Usual diet Discharge Activity: Resume usual activity Patient Instructions: Opioid Safety Activity Restrictions/Additional Instructions: Stop losartan follow-up with primary care physician. Coding Level of Care Code ED Web Applications Developer for Terryg Fwd 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
--- NOTE | 2021-05-22 10:59 | XR_ITS ---
WS: [id number] PORTABLE CHEST HISTORY: dyspnea/cough COMPARISON: 05/08/2021 Right-sided PICC line is present with tip extending into the distal SVC. There is near complete opacification of the RIGHT thorax. A small amount of aerated lung centrally is edematous. Very similar in appearance to 05/08/2021. There is volume loss in the RIGHT thorax. A smal l amount of fluid cannot be excluded. LEFT lung is clear and well aerated. Small effusion on the RIGH T is suspected along with atelectasis. Cardiac size: Obscured by the dense consolidation in the RIGHT thorax. Mediastinum/Aorta: There is a chest tube present in the RIGHT lower thorax. Similar in appearance to the prior study. Mediastinal structures are shifted to the RIGHT suggesting volume loss. No osseous abnormality seen. XR/XR chest 1V portable [id number] IMPRESSION: 1. Near complete opacification of the RIGHT thorax with minimal aerated lung c entrally. Similar to the prior study. 2. There is volume loss in the RIGHT thorax with shift of the mediastinal stru ctures to the RIGHT. Increased opacification is probably a combination of atele ctasis and fluid. 3. Right-sided chest tube overlying the RIGHT lower thorax. No change in posit ion.
[2021-05-22 11:19] LABS: Basophils % 0.2 %; Eosinophils % 0.1 %; Hematocrit 37.6 % (37.0-47.0); Hemoglobin 12.5 g/dL (11.5-15.3); Lymphocytes # 0.4 10^3/uL (0.8-4.8); Lymphocytes % 2.3 %; Mean Corpuscular HGB Conc 33.2 g/dL (30.0-36.0); Mean Corpuscular Hemoglobin 27.4 pg (28.0-34.0); Mean Corpuscular Volume 82.3 fl (81-99); Mean Platelet Volume 9.2 fL (7.4-10.4); Monocytes % 5.6 %; Neutrophils # 15.62 10^3/uL (1.8-7.7); Neutrophils % 85.7 %; Nucleated Red Blood Cells % 0 %; Platelet Count 445 10^3/cmm (130-400); Red Blood Count 4.57 10^6/uL (4.1-5.3); Red Cell Distribution Width 17.1 % (12.1-15.1); White Blood Count 18.2 10^3/uL (4.0-10.0)
[2021-05-22 11:40] LABS: Alanine Aminotransferase 133 U/L (0-33); Albumin Level 2.8 g/dL (3.5-5.2); Alkaline Phosphatase 146 IU/L (35-105); Anion Gap 17.8 (5-19); Aspartate Amino Transferase 97 U/L (0-32); Blood Urea Nitrogen 48 mg/dL (8-23); Calcium 9.2 mg/dL (8.5-10.5); Carbon Dioxide 23 mmol/L (22-29); Chloride 90 mmol/L (98-107); Globulin 2.7 g/dL (1.3-4.6); Glomerular Filtration Rate 55.3 mL/min (90-130); Glucose 79 mg/dL (65-115); Osmolality Calculated 276 mOsm/kg (285-295); Potassium 3.8 mmol/L (3.5-5.1); Sodium 127 mmol/L (136-145); Total Bilirubin 0.5 mg/dL (0.15-1.2); Total Protein 5.5 g/dL (6.6-8.7)
[2021-05-22 11:55] LABS: Slide Review Slide Review Perform
== END 2021-05-22 14:51 | disposition home or self-care (01) ==
PROVIDERS: Emergency Provider Family Medicine; PCP Internal Medicine
DX: J90 Pleural effusion, not elsewhere classified (principal); C34.90 Malignant neoplasm of unspecified part of unspecified bronchus or lung; I95.9 Hypotension, unspecified; Z79.82 Long term (current) use of aspirin; J44.9 Chronic obstructive pulmonary disease, unspecified; Z87.891 Personal history of nicotine dependence
CPT/HCPCS: 71045; 80053; 85025; 99283

== ENCOUNTER 2021-05-25 09:38 | Inpatient (IN) | payer MEDICARE, MEDICAID, SELFPAY ==
[2021-05-25] VITALS (35 sets, daily range): BP systolic 64–134; BP diastolic 38–92; PULSE 67–95; RESP 11–23; TEMP 35.8–36.8; O2SAT 91–99; BMI 23.0
--- NOTE | 2021-05-25 09:51 | ED_ITS ---
HPI - Nausea/Vomiting/Diarrhea General: Chief complaint: Nausea/Vomiting/Diarrhea Stated complaint: N/V/D Time Seen by Provider: 05/25/21 09:39 Source: patient Mode of arrival: EMS History of Present Illness: 66-year-old female presents to the emergency room with complaint of hypotension. 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 She also recently had an MA and has paroxysmal atrial fibrillation. When I seen her last time she been started on antibiotics for presumed pneumonia chills found to have mild cystitis antibiotics were adjusted. She is lethargic on first encounter here. She denies any chest or abdominal pain. Nursing reports she had nausea vomiting and diarrhea over the weekend. MD elicited complaint: nausea, vomiting and diarrhea Pertinent past history: other (Lung CA stage IV adeno carcinoma) Onset (ago): day(s) Description of diarrhea: watery and semi-solid Associated nausea: Yes Associated abdominal pain: No Exacerbating factors: none Relieving factors: none Associated symtoms: Reports fatigue, anorexia, malaise, nausea and weakness; Denies altered mental status, anxiety, bloating, change in vision, chest pain, cough, diaphoresis, decreased urine output, dizziness, dysuria, epistaxis, fecal incontinence, fevers/chills, headache(s), myalgias, numbness, palpitations, rash, short of breath, syncope, tenesmus or tinnitus Review of Systems Const: Reports: fatigue and malaise; Denies: diaphoresis Eyes: Denies: change in vision ENMT: Denies: tinnitus or epistaxis Card: Denies: chest pain, palpitations or syncope Resp: Denies: dyspnea, productive cough or non-productive cough GI: Reports: nausea; Denies: bloating or fecal incontinence : Denies: dysuria Skin/Breast: Denies: rash or pruritus Neuro: Denies: headache(s) or dizziness Psych: Denies: anxiety PFSH ED PFSH: Medical History Acute respiratory failure Adenocarcinoma, lung Atrial fibrillation/flutter Atrial flutter with rapid ventricular response Brain metastasis COPD (chronic obstructive pulmonary disease) Hyponatremia Lung cancer Lung mass Osteoarthritis of left knee Panic disorder [episodic paroxysmal anxiety] Port-A-Cath in place 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 Surgical History Hx of cholecystectomy S/P bronchoscopy Family History Other CAD (coronary artery disease) Cancer Dementia Hypertension Lung disease Stroke Denies family history of Diabetes Hyperlipidemia Chronic kidney disease (CKD) Family history of premature coronary artery disease Social History Quit status (tobacco): has quit using tobacco Year quit tobacco: 2020 Smoking risk assessment/counseling performed?: Yes Tobacco counseling given: co unseling >3 minutes Alcohol intake: current Alcohol intake frequency: few times a month Alcohol type: beer Counseling given: No Counseling given: No Lives independently: Yes Household members: family Marital status: Current occupational status: retired 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, 2 steps in back with no handrails, advise History of recent travel: No Current gender identity: Female Physical Exam Const: EXAM LIMITATIONS: no altered mental status HENMT: COMMON NORMALS: normocephalic, atraumatic and hearing grossly normal bilaterally HEAD & SCALP: normocephalic and atraumatic Neck/C-Spine: COMMON NORMALS: no JVD Resp: COMMON NORMALS: normal respiratory effort AUSCULTATION: rales on the left and breath sounds absent on the right Cardio: COMMON NORMALS: no JVD, regular rate, regular rhythm and No murmurs present (Cardio) RATE: regular rate RHYTHM: regular rhythm GI: COMMON NORMALS: Soft to palpation and No hepatosplenomegaly present AUSCULTATION: Yes normoactive bowel sounds PALPATION: Yes Soft to palpation, No Tenderness to palpation present (GI), No Guarding due to palpation present (GI) and Yes No hepatosplenomegaly present Extremity: COMMON NORMALS: normal to inspection, capillary refill normal, no clubbing, cyanosis or edema, no calf tenderness and no pedal edema Skin: COMMON NORMALS: no rashes or lesions noted GENERAL SKIN EXAM: no rashes or lesions noted Course Vital Signs: Vital signs: Vital Signs Temperature 96.5 F L 05/25/21 10:06 Pulse Rate 68 05/25/21 10:34 Respiratory Rate 16 05/25/21 10:34 Blood Pressure 69/43 05/25/21 10:34 Pulse Oximetry 99 05/25/21 10:34 MDM - Nausea/Vomiting/Diarrhea Medical Decision Making Patient is somewhat lethargic initially I thought it was just from dehydration and overmedication we seen her last week and stopped her losartan we gave her some fluids her pressure actually got worse she labs again came back her white count was 15,000 she does have a worsening bladder infection when we seen her last week there is signs of bladder infection we will change the antibiotic and had anticipated that would cover it. Now she seems to be worse and is septic and her blood pressure has decreased despite fluids were giving the balance of a 30 mL/kg of fluid bolus and restarting her on Levophed. I did talk to Dr. Estrada the plan is to stop the Coreg for sure and possibly stop both. Family did come later and talk to Dr. Castellanos they are still wanting her to be a full code despite her multiple medical problems recent MA and stage IV lung cancer with chronic right pleural effusion. Medical Records I reviewed the patient's medical records. Lab Data I reviewed the patient's lab results. : 05/25/21 10:22 05/25/21 10:22 Laboratory Results WBC 15.8 10^3/uL (4.0-10.0) H 05/25/21 10: RBC 3.67 10^6/uL (4.1-5.3) L 05/25/21 10:22 Hgb 10.0 g/dL (11.5-15.3) L 05/25/21 10:22 Hct 30.9 % (37.0-47.0) L 05/25/21 10:22 MCV 84.2 fl (81-99) 05/25/21 10:22 MCH 27.2 pg (28.0-34.0) L 05/25/21 10: MCHC 32.4 g/dL (30.0-36.0) 05/25/21 10:22 RDW 17.2 % (12.1-15.1) H 05/25/21 10:22 Plt Count 388 10^3/cmm (130-400) 05/25/21 10:22 MPV 9.5 fL (7.4-10.4) 05/25/21 10: Neut % (Auto) 83.8 % 05/25/21 10:22 Lymph % (Auto) 2.3 % 05/25/21 10:22 [place] % (Auto) 6.3 % 05/25/21 10:22 Eos % (Auto) 0.1 % 05/25/21 10:22 Baso % (Auto) 0.3 % 05/25/21 10:22 Neut # (Auto) 13.23 10^3/uL (1.8-7.7) H 05/25/21 10:22 Lymph # (Auto) 0.4 10^3/uL (0.8-4.8) L 05/25/21 10: [place] # (Auto) 1.0 10^3/uL (0.2-0.9) H 05/25/21 10:22 Eos # (Auto) 0.0 10^3/uL (0.0-0.8) 05/25/21 10: Baso # (Auto) 0.1 10^3/uL (0.0-0.1) 05/25/21 10: Nucleated RBC % (auto) 0 % 05/25/21 10: Nucleated RBCs # 0.0 /100WBC 05/25/21 10:22 Sodium 128 mmol/L (136-145) L 05/25/21 10:22 Potassium 3.2 mmol/L (3.5-5.1) L 05/25/21 10:22 Chloride 95 mmol/L (98-107) L 05/25/21 10:22 Carbon Dioxide 18 mmol/L (22-29) L 05/25/21 10:22 Anion Gap 18.2 (5-19) 05/25/21 10:22 BUN 52 mg/dL (8-23) H 05/25/21 10:22 Creatinine 1.9 mg/dL (0.5-0.9) H 05/25/21 10:22 GFR Calculation 26.4 mL/min (90-130) L 05/25/21 10:22 Glucose 89 mg/dL (65-115) 05/25/21 10:22 Calculated Osmolality 280 mOsm/kg (285-295) L 05/25/21 10:22 Calcium 7.6 mg/dL (8.5-10.5) L 05/25/21 10:22 Total Bilirubin 0.4 mg/dL (0.15-1.2) 05/25/21 10:22 AST 44 U/L (0-32) H 05/25/21 10:22 ALT 72 U/L (0-33) H 05/25/21 10:22 Alkaline Phosphatase 119 IU/L (35-105) H 05/25/21 10:22 Total Protein 4.0 g/dL (6.6-8.7) L 05/25/21 10:22 Albumin 2.1 g/dL (3.5-5.2) L 05/25/21 10: Globulin 1.9 g/dL (1.3-4.6) 05/25/21 10:22 Urine Color Dark yellow (Yellow) 05/25/21 10:37 Urine Appearance Cloudy (CLEAR) 05/25/21 10:37 Urine pH 5 (5-7) 05/25/21 10:37 Ur Specific [place] 1.020 (1.005-1.030) 05/25/21 10:37 Urine Protein Trace (Negative) 05/25/21 10:37 Urine Glucose (UA) Norm (Normal) 05/25/21 10:37 Urine Ketones Negative (Negative) 05/25/21 10:37 Urine Blood 3+ (Negative) H 05/25/21 10:37 Urine Nitrate Negative (Negative) 05/25/21 10:37 Urine Bilirubin 1+ (Negative) H 05/25/21 10:37 Urine Urobilinogen 1 mg/dL (Negative) H 05/25/21 10:37 Ur Leukocyte Esterase 1+ (Negative) H 05/25/21 10:37 Urine RBC 5-10 /hpf (0-2) H 05/25/21 10:37 Urine WBC 40-55 /hpf (0-5) H 05/25/21 10:37 Ur Squamous Epith Cells 0-4 /hpf (0-5) H 05/25/21 10:37 Amorphous Sediment Not Reportable 05/25/21 10:37 Urine Bacteria 1+ /hpf (NONE) H 05/25/21 10:37 Urine Yeast 2+ /hpf H 05/25/21 10:37 Discharge Plan Discharge Condition: Stable Prescriptions: No Action ipratropium-albuterol 0.5 mg-3 mg(2.5 mg base)/3 mL solution for nebulization 3 ml INHALATION TID PRN (Reason: Shortness Of Breath) 30 Days Qty: 360 4RF clonazepam 0.5 mg tablet 0.5 mg PO TID PRN (Reason: Anxiety) Qty: 90 0RF Label Comments: patient mentioned starting xanax? need to confirm next visit 03-16-21 trazodone 50 mg tablet 50 mg PO BEDTIME PRN (Reason: Sleep) 0RF oxycodone 10 mg tablet 10 mg PO Q4H PRN (Reason: Pain) 0RF furosemide 40 mg Tablet 40 mg PO DAILY@0800 30 Days Qty: 30 0RF aspirin 81 mg Tablet,Delayed Release (Dr/Ec) 81 mg PO DAILY 30 Days Qty: 30 0RF carvedilol 3.125 mg Tablet 3.125 mg PO BID 30 Days Qty: 60 0RF Klor-Con M20 20 mEq Tablet,Er Particles/Crystals 20 meq PO DAILY 30 Days Qty: 30 0RF pantoprazole 40 mg Tablet,Delayed Release (Dr/Ec) 40 mg PO DAILY 30 Days Qty: 30 0RF ferrous gluconate 324 mg (37.5 mg iron) Tablet 324 mg PO BIDWM 30 Days Qty: 60 0RF albuterol sulfate [ProAir HFA] 90 mcg/actuation HFA aerosol inhaler 2 puff INHALATION QID PRN (Reason: Shortness Of Breath) 0RF Label Comments: patient mentioned starting xanax? need to confirm next visit 03-16-21 amiodarone 200 mg tablet 200 mg PO BID 0RF Label Comments: patient mentioned starting xanax? need to confirm next visit 03-16-21 Xarelto 15 mg tablet 15 mg PO DAILY MDD ON HOLD 0RF Label Comments: patient mentioned starting xanax? 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
--- NOTE | 2021-05-25 09:51 | ECG_ITS ---
[facility] Test Date: 2021-05-25 Pat Name: Iram Denis Department: Room: Gender: Female [employer]er: : 1955 Requested By: Aubrey Cano Order Number: [id number] Titus MD: Blair Adams M.D. Measurements Intervals [place] Rate: 67 P: 48 MD: 189 QRS: 74 QRSD: 144 T: 105 QT: 445 QTc: 471 Interpretive Statements SINUS RHYTHM POSSIBLE LEFT ATRIAL ENLARGEMENT [-0.1mV P-WAVE IN V1/V2] INTRAVENTRICULAR CONDUCTION DELAY [130+ ms QRS DURATION] Compared to ECG 05/05/2021 19:49:50 Intraventricular conduction delay now present ST (T wave) deviation no longer present Early repolarization no longer present T-wave abnormality no longer present Possible ischemia no longer present Electronically Signed On 05-25-2021 18:07:18 [employer]AT [employer] by Blair Adams M.D. [id number]
[2021-05-25] MEDS: sodium chloride 0.9% 1,000 ML 999 ML IV ×2 (10:11→12:10)
[2021-05-25] MEDS: ondansetron 2 mg/ML SDV 2 mL 4 MG IVP (10:12)
[2021-05-25 10:34] LABS: Basophils # 0.1 10^3/uL (0.0-0.1); Basophils % 0.3 %; Eosinophils % 0.1 %; Hematocrit 30.9 % (37.0-47.0); Lymphocytes # 0.4 10^3/uL (0.8-4.8); Lymphocytes % 2.3 %; Mean Corpuscular HGB Conc 32.4 g/dL (30.0-36.0); Mean Corpuscular Hemoglobin 27.2 pg (28.0-34.0); Mean Corpuscular Volume 84.2 fl (81-99); Mean Platelet Volume 9.5 fL (7.4-10.4); Monocytes % 6.3 %; Neutrophils # 13.23 10^3/uL (1.8-7.7); Neutrophils % 83.8 %; Nucleated Red Blood Cells % 0 %; Platelet Count 388 10^3/cmm (130-400); Red Blood Count 3.67 10^6/uL (4.1-5.3); Red Cell Distribution Width 17.2 % (12.1-15.1); White Blood Count 15.8 10^3/uL (4.0-10.0)
[2021-05-25 11:00] LABS: Alanine Aminotransferase 72 U/L (0-33); Albumin Level 2.1 g/dL (3.5-5.2); Alkaline Phosphatase 119 IU/L (35-105); Anion Gap 18.2 (5-19); Aspartate Amino Transferase 44 U/L (0-32); Blood Urea Nitrogen 52 mg/dL (8-23); Calcium 7.6 mg/dL (8.5-10.5); Carbon Dioxide 18 mmol/L (22-29); Chloride 95 mmol/L (98-107); Globulin 1.9 g/dL (1.3-4.6); Glomerular Filtration Rate 26.4 mL/min (90-130); Glucose 89 mg/dL (65-115); Osmolality Calculated 280 mOsm/kg (285-295); Potassium 3.2 mmol/L (3.5-5.1); Sodium 128 mmol/L (136-145); Total Bilirubin 0.4 mg/dL (0.15-1.2)
[2021-05-25 11:03] LABS: Add Urine Microscopic? YES; Bilirubin Urine 1+ (Negative); Blood Urine 3+ (Negative); Glucose Urine UA Norm (Normal); Ketones Urine Negative (Negative); Leukocyte Esterase Urine 1+ (Negative); Nitrate Urine Negative (Negative); Protein Urine Trace (Negative); Urine Appearance Cloudy (CLEAR); Urine Color Dark Yellow (Yellow); Urobilinogen Urine 1 mg/dL (Negative); pH Urine 5 (5-7)
[2021-05-25 11:04] LABS: Add Urine Culture? Yes; Bacteria Urine 1+ /hpf; Other Sediment, Urine BUD YEAST W/HYPHAE; Squamous Epithelial Cell Urine 0-4 /hpf (0-5); WBC Urine 40-55 /hpf (0-5)
[2021-05-25 11:05] LABS: Slide Review Slide Review Perform
--- NOTE | 2021-05-25 11:54 | XR_ITS ---
WS: [id number] CHEST XRAY TECHNIQUE: Portable chest. CLINICAL INFORMATION: dyspnea/cough COMPARISON: May 22, 2021 FINDINGS: RIGHT PICC line with tip in the distal SVC. RIGHT chest tube along the RIGHT lower lobe unc hanged. Heart: Mild cardiomegaly. Lungs: Near complete opacification RIGHT hemithorax is unchanged since May 22, 2021. Dense opaci fication the RIGHT midlung and RIGHT lower lobe. Aeration the RIGHT lung centrally is similar in appe arance to previous. Volume loss RIGHT lung with LEFT to RIGHT mediastinal shift unchanged. LEFT lung is well aerated. Bones: Osteopenia. XR/XR chest 1V portable [id number] IMPRESSION: 1. RIGHT PICC line with tip in distal SVC. RIGHT chest tube along the RIGHT lo wer lobe unchanged. 2. Near complete opacification RIGHT hemithorax with volume loss and LEFT to R IGHT mediastinal shift is unchanged.
[2021-05-25 13:44] LABS: Lactic Sepsis W/Reflex 0.7 mmol/L (0.5-2.2)
--- NOTE | 2021-05-25 15:14 | P.HP_ITS ---
Providers/Chief Complaint Admitting Physician: Kenia Castellanos MD Primary Care Provider: Jayna Schmitt MD Chief Complaint: N/V/D History of Present Illness Iram Denis is a 66 year old female who presented to the emergency room with low blood pressure. 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 A few weeks ago she also had an admission with non-ST elevation PR and was found to have Takotsubo's cardiomyopathy. At that time she was started on Lasix, carvedilol and losartan. Ejection fraction was 40%. Cardiac catheterization did not show any blockages. She has been taking medications as prescribed. Since that time it sounds like she has been getting progressively weaker and more tired. Today she was found to have blood pressure in the 50s to 60s systolic. She had been seen last week with borderline blood pressures and at that time losartan was held. She was continued on Lasix and carvedilol. She received 2 L of IV fluids in the emergency room without significant improvement in her blood pressure and ultimately ended up requiring pressor support. Lactic acid was normal at 0.7. Patient had reported some nausea vomiting and diarrhea with onset today. No episodes occurred in the emergency room. Denies chest pain. She has been short of breath but that is not that unusual for her. She was up to 12 mics of Levophed with persistent hypotension. Work-up showed an abnormal urinalysis s uggestive of possible urinary tract infection. She received a dose of Rocephin for this. She is being admitted for further evaluation and treatment. Of note she does have significant increase in BUN and creatinine from prior values. Other labs are not that dissimilar from previous. Albumin is also quite low comparatively today at 2.1. History is limited from her due to acute illness and is as noted below were obtained on chart review. Review of Systems Const: Reports: fatigue; Denies: fever(s) or chills ENMT: Denies: throat pain or nasal congestion Card: Denies: chest pain or palpitations Resp: Reports: dyspnea, productive cough and non-productive cough; Denies: hemoptysis GI: Reports: nausea, vomiting (today only) and diarrhea (started today); Denies: abdominal pain, hematemesis, constipation, hematochezia or melena : Reports: difficulty voiding and oliguria Musc: Reports: back pain, extremity pain and other (umcomfortable in current bed) Skin/Breast: Denies: pruritus or sores Neuro: Reports: weakness in extremities (general rather than focal), diffic ulty walking and dizziness; Denies: headache(s) Psych: Reports: anxiety and sleeping more Endo: Reports: tired all the time Delfin/Lymph: Reports: easy bruising; Denies: easy bleeding Medications/Allergies Home Medications Medication Instructions Recorded Confirmed Last Taken Type albuterol sulfate 90 mcg/actuation 2 puff INHALATION QID PRN 02/07/20 05/25/21 04/17/21 History aerosol inhaler (ProAir HFA) amiodarone 200 mg tablet 200 mg PO BID 06/07/20 05/25/21 05/24/21 History rivaroxaban 15 mg tablet (Xarelto) 15 mg PO DAILY 12/08/20 05/25/21 03/29/21 History ipratropium 0.5 mg-albuterol 3 mg 3 ml INHALATION TID PRN 30 Days 03/19/21 05/25/21 04/17/21 Rx (2.5 mg base)/3 mL nebulization #360 ml soln dexamethasone 4 mg tablet 2 mg PO BID 03/30/21 05/25/21 05/05/21 History clonazepam 0.5 mg tablet 0.5 mg PO TID PRN #90 tab 04/06/21 05/25/21 05/05/21 06:00 Rx trazodone 50 mg tablet 50 mg PO BEDTIME PRN 04/17/21 05/25/21 Unknown History oxycodone 10 mg tablet 10 mg PO Q4H PRN 05/05/21 05/25/21 05/25/21 History aspirin 81 mg tablet,delayed 81 mg PO DAILY 30 Days #30 tab 05/09/21 05/25/21 05/24/21 Rx release carvedilol 3.125 mg tablet 3.125 mg PO BID 30 Days #60 tab 05/09/21 05/25/21 05/24/21 Rx ferrous gluconate 324 mg (37.5 mg 324 mg PO BIDWM 30 Days #60 tab 05/09/21 05/25/21 05/24/21 Rx iron) tablet furosemide 40 mg tablet 40 mg PO DAILY@0800 30 Days #30 tab 05/09/21 05/25/21 05/24/21 Rx pantoprazole 40 mg tablet,delayed 40 mg PO DAILY 30 Days #30 tab 05/09/21 05/25/21 05/24/21 Rx release potassium chloride 20 mEq 20 meq PO DAILY 30 Days #30 tab 05/09/21 05/25/21 05/24/21 Rx tablet,extended release(part/cryst) (Klor-Con M) amoxicillin 400 mg-potassium 11 ml PO BID 05/25/21 05/25/21 Unknown History clavulanate 57 mg/5 mL oral suspension Allergies Allergy/AdvReac Type Severity Reaction Status Date / Time morphine Allergy Unknown ALGY-Rash Unverified 05/09/21 16:57 PFSH Acute PFSH: Medical History (Updated 05/25/21 @ 17:14 by Kenia Castellanos MD) Anemia Brain metastasis s/p whole brain radiation ending 03/23/2021 COPD (chronic obstructive pulmonary disease) History of cervical cancer History of left heart catheterization (05/07/21) no significant coronary artery disease Hyponatremia Intermittent atrial fibrillation afib/flutter Migraines Osteoarthritis of left knee Panic disorder [episodic paroxysmal anxiety] Pulmonary venous thrombosis (~04/2020) Recurrent pleural effusion on right malignant Stage IV adenocarcinoma of lung Stage IVB (M1c), s/p chemo (carboplatin/paclitaxel finished end 2019) and radiation (completed 04/29/2020), immunotherapy offered Was stage IIIB (T4,N2,M0) at presentation 01/2020 Superior vena cava thrombosis Takotsubo cardiomyopathy EF 40% 05/07/2021 Thrombosis of superior vena cava Surgical History (Updated 05/25/21 @ 17:14 by Kenia Castellanos MD) Hx of cholecystectomy Other postprocedural status pleurx catheter placed by Dr Meadows 01/07/2021, 04/01/2021 S/P bronchoscopy 02/08/2020, 12/12/2020 Family History Other CAD (coronary artery disease) Cancer Dementia Hypertension Lung disease Stroke Denies family history of Diabetes Hyperlipidemia Chronic kidney disease (CKD) Family history of premature coronary artery disease Social History (Updated 05/25/21 @ 16:00 by Kenia Castellanos MD) Quit status (tobacco): has quit using tobacco Year quit tobacco: 2020 Alcohol intake: current Alcohol intake frequency: few times a month Alcohol type: beer Substance/Drug Use: never Household members: family Marital status: Current occupational status: retired 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, 2 steps in back with no handrails, advise Current gender identity: Female Vitals/I&O/Wt Last Vital Signs Temp 96.5 F L 05/25/21 10:06 Pulse 69 05/25/21 15:11 Resp 16 05/25/21 15:04 BP 89/48 05/25/21 15:11 Pulse Ox 99 05/25/21 15:11 05/25/21 05/25/21 05/25/21 06:59 14:59 22:59 Intake Total 1020.828 / 1020.828 Output Total 100 / 100 Balance 920.828 / 920.828 Weight last 48 hrs Weight 60.781 kg Weight 60.781 kg Physical Exam Narrative: Constitutional: Chronically ill-appearing, lethargic but will awaken and answer some questions HEENT: Normocephalic, alopecia, pupils are equally reactive, nasopharynx is clear, oropharynx with dry mucous membranes Neck: Supple Respiratory: Absent breath sounds on the right, no wheezes on the left, crackles at the left base, prominent sternoclavicular joint bilaterally, mildly tachypneic, drain in place on the right Cardiovascular: Regular rate and rhythm, no gallops or rubs noted Abdomen: Soft, mild diffuse tenderness, no rebound or guarding : Medina catheter noted Extremities: Doughy edema hands and feet most prominent lower extremities, no calf tenderness Skin: Mottling of the feet only, scattered bruising most notable in upper extremities, skin is pale and cool, capillary refill around 3 seconds Neuro: Speech clear, intermittently appears to have right facial droop but when specifically asked to smile smile is symmetric, moves all extremities, generally weak Psych: Anxious, scared, little confused consistent with current condition Urinary Catheter Management: Medina: Cath Placed During This Visit: yes Urinary Catheter Date of Insertion: 05/25/21 Urinary Catheter Time of Insertion: 10:33 Data : 05/25/21 10:22 05/25/21 10:22 Other Labs: Radiology Impressions Chest X-Ray 05/25/21 11:54 IMPRESSION: 1. RIGHT PICC line with tip in distal SVC. RIGHT chest tube along the RIGHT lower lobe unchanged. 2. Near complete opacification RIGHT hemithorax with volume loss and LEFT to RIGHT mediastinal shift is unchanged. Laboratory Results WBC 15.8 10^3/uL (4.0-10.0) H 05/25/21 10:22 RBC 3.67 10^6/uL (4.1-5.3) L 05/25/21 10:22 Hgb 10.0 g/dL (11.5-15.3) L 05/25/21 10:22 Hct 30.9 % (37.0-47.0) L 05/25/21 10:22 MCV 84.2 fl (81-99) 05/25/21 10:22 MCH 27.2 pg (28.0-34.0) L 05/25/21 10:22 MCHC 32.4 g/dL (30.0-36.0) 05/25/21 10:22 RDW 17.2 % (12.1-15.1) H 05/25/21 10:22 Plt Count 388 10^3/cmm (130-400) 05/25/21 10:22 MPV 9.5 fL (7.4-10.4) 05/25/21 10:22 Neut % (Auto) 83.8 % 05/25/21 10:22 Lymph % (Auto) 2.3 % 05/25/21 10:22 [place] % (Auto) 6.3 % 05/25/21 10:22 Eos % (Auto) 0.1 % 05/25/21 10:22 Baso % (Auto) 0.3 % 05/25/21 10:22 Neut # (Auto) 13.23 10^3/uL (1.8-7.7) H 05/25/21 10:22 Lymph # (Auto) 0.4 10^3/uL (0.8-4.8) L 05/25/21 10:22 [place] # (Auto) 1.0 10^3/uL (0.2-0.9) H 05/25/21 10:22 Eos # (Auto) 0.0 10^3/uL (0.0-0.8) 05/25/21 10:22 Baso # (Auto) 0.1 10^3/uL (0.0-0.1) 05/25/21 10:22 Nucleated RBC % (auto) 0 % 05/25/21 10: Nucleated RBCs # 0.0 /100WBC 05/25/21 10:22 Sodium 128 mmol/L (136-145) L 05/25/21 10:22 Potassium 3.2 mmol/L (3.5-5.1) L 05/25/21 10:22 Chloride 95 mmol/L (98-107) L 05/25/21 10:22 Carbon Dioxide 18 mmol/L (22-29) L 05/25/21 10:22 Anion Gap 18.2 (5-19) 05/25/21 10:22 BUN 52 mg/dL (8-23) H 05/25/21 10:22 Creatinine 1.9 mg/dL (0.5-0.9) H 05/25/21 10:22 GFR Calculation 26.4 mL/min (90-130) L 05/25/21 10:22 Glucose 89 mg/dL (65-115) 05/25/21 10:22 Calculated Osmolality 280 mOsm/kg (285-295) L 05/25/21 10:22 Lactic Acid 0.7 mmol/L (0.5-2.2) 05/25/21 12:06 Calcium 7.6 mg/dL (8.5-10.5) L 05/25/21 10:22 Total Bilirubin 0.4 mg/dL (0.15-1.2) 05/25/21 10:22 AST 44 U/L (0-32) H 05/25/21 10:22 ALT 72 U/L (0-33) H 05/25/21 10:22 Alkaline Phosphatase 119 IU/L (35-105) H 05/25/21 10:22 Total Protein 4.0 g/dL (6.6-8.7) L 05/25/21 10:22 Albumin 2.1 g/dL (3.5-5.2) L 05/25/21 10:22 Globulin 1.9 g/dL (1.3-4.6) 05/25/21 10:22 Urine Color Dark yellow (Yellow) 05/25/21 10:37 Urine Appearance Cloudy (CLEAR) 05/25/21 10:37 Urine pH 5 (5-7) 05/25/21 10:37 Ur Specific Ethel 1.020 (1.005-1.030) 05/25/21 10:37 Urine Protein Trace (Negative) 05/25/21 10:37 Urine Glucose (UA) Norm (Normal) 05/25/21 10:37 Urine Ketones Negative (Negative) 05/25/21 10:37 Urine Blood 3+ (Negative) H 05/25/21 10:37 Urine Nitrate Negative (Negative) 05/25/21 10:37 Urine Bilirubin 1+ (Negative) H 05/25/21 10:37 Urine Urobilinogen 1 mg/dL (Negative) H 05/25/21 10:37 Ur Leukocyte Esterase 1+ (Negative) H 05/25/21 10:37 Urine RBC 5-10 /hpf (0-2) H 05/25/21 10:37 Urine WBC 40-55 /hpf (0-5) H 05/25/21 10:37 Ur Squamous Epith Cells 0-4 /hpf (0-5) H 05/25/21 10:37 Amorphous Sediment Not Reportable 05/25/21 10:37 Urine Bacteria 1+ /hpf (NONE) H 05/25/21 10:37 Urine Yeast 2+ /hpf H 05/25/21 10:37 Micro: Microbiology 05/25/21 12:06 Blood Culture - Preliminary Blood SPECIMEN COLLECTED 05/25/21 12:06 Blood Culture - Preliminary Blood SPECIMEN COLLECTED A&P Assessment and plan (1) Hypotension: Due to medication effect and hypovolemia. Requiring high-dose pressor support even after IV fluids. Lactic acid was normal. Has abnormal urinalysis suggestive of urinary tract infection and elevation in white count similar to prior values. Chronically opacified right lung without increased respiratory symptoms reported. No fevers. Recent hospitalization during which she was found to have Takotsubo cardiomyopathy and non-ST elevation PR. She was started on losartan, Lasix and Coreg. Seen in the emergency room last week where losartan was stopped but continued on Lasix and carvedilol. Reports nausea, vomiting and diarrhea starting today though has not recurred since arriving to the ER. Doubt sepsis secondary to acute infection at this time. IV fluids at a low rate, monitoring overall volume status closely given known Takotsubo Repeat electrolytes this afternoon and replace accordingly Continue pressor support, weaning as able; presently on 14 mics of Levophed Stress dose steroids Random cortisol level on blood work in the lab Check procalcitonin Blood cultures and urine cultures have been collected Stool for C. difficile if diarrhea is noted here Continue Rocephin currently for abnormal urinalysis with low threshold to broaden coverage Consult pulmonology for assistance with management particularly regarding pleural fluid drain; send pleural fluid for cultures Need additional peripheral or central access Status: Acute Qualifiers: Hypotension type: hypotension due to drug Qualified Code(s): I95.2 - Hypotension due to drugs (2) Acute kidney injury: Multifactorial from hypovolemia and hypotension, medications Medina catheter for close monitoring of overall urine output Hold nephrotoxic medications and adjust others accordingly Status: Acute (3) Cystitis: Present on admission Presently covering with Rocephin which was started in the emergency room with low threshold to broaden coverage should she have clinical change Status: Acute (4) Takotsubo cardiomyopathy: Ejection fraction 40% at the end of April; has been started on diuretics, beta-blockade and ARB because of this all of which are presently held. We will need to monitor cardiopulmonary status closely for acute change Status: Chronic (5) Intermittent atrial fibrillation: Presently in sinus rhythm Continue amiodarone Status: Chronic (6) Chronic anticoagulation: On Xarelto chronically with a known history of superior vena cava syndrome and pulmonary vein thrombosis in April 2020 as well as intermittent atrial fibrill ation Given current renal function will decrease dosing to daily Need to adjust back to twice daily soon Status: Acute (7) Stage IV adenocarcinoma of lung: Follows with Dr. Almeida, has previously received chemotherapy and radiation, more recently received whole brain radiation and is due to start immunotherapy soon [facility] Decrease usual pain medication by half presently secondary to hypotension and alteration of mental status in the setting of acute kidney injury Status: Chronic Qualifiers: Laterality: right Qualified Code(s): C34.91 - Malignant neoplasm of unspecified part of right bronchus or lung (8) Recurrent pleural effusion on right: With Pleurx catheter in place Drain fluid as per usual pattern Send fluid for cultures Status: Chronic (9) H/O steroid therapy: Has been on dexamethasone due to brain metastases with dosage decreased from 4 twice daily to 2 twice daily in April Hydrocortisone stress test Status: Chronic (10) COPD (chronic obstructive pulmonary disease): Not currently exacerbated, chronically on 4 L of oxygen Duo nebs as needed Status: Chronic Qualifiers: COPD type: emphysema Emphysema type: centrilobular Qualified Code(s): J43.2 - Centrilobular emphysema (11) Anxiety: Chronically on clonazepam Given degree of sedation will decrease dose to half usual Status: Chronic (12) Status post PICC central line placement: PICC line right upper extremity, single lumen, with plan to use for upcoming immunotherapy Anticipate change to at least double if not triple lumen line for expanded access under current circumstances Status: Chronic Plan Inpatient admission Chronically on Xarelto which is at renal dosing presently Add SCDs PPI for GI prophylaxis Lactobacillus Supportive care otherwise Presently anticipate discharge home probably with some adjustments to outpatient medications and close follow-up but will ultimately depend on clinical course Reviewed with patient's daughter the profound hypotension requiring pressor support indicating that it could be from infection, medications, cardiac issues and management may be challenging. Made clear that if she does not start to respond to treatment at risk of rapid clinical decline necessitating more life-saving measures. FULL CODE. Mrs Denis had previously been on hospice but revoked this to start on immunotherapy. Patient completed paperwork last week stating her wishes to be intubated and have CPR should she require it. Attestations Medical Necessity Statement*: Anticipated stay greater than 2 midnights in a patient with above comorbid conditions currently requiring high-dose pressor support to maintain appropriate blood pressures. All of the medications that were recently initiated for treatment of cardiomyopathy have been stopped and at risk for volume overload and decompensation from treatment for hypotension. Presently requiring ICU level care. Other issues and plans as indicated. Coding Level of Care Code Acute Instrumentation Instructor for Barbara Fwd Diagnoses Hypotension I95.2 Hypotension type: hypotension due to drug Takotsubo cardiomyopathy I51.81 Cystitis N30.90 Stage IV adenocarcinoma of lung C34.91 Laterality: right Intermittent atrial fibrillation I48.0 Recurrent pleural effusion on right J90 Chronic anticoagulation Z79.01 H/O steroid therapy Z92.241 COPD (chronic obstructive pulmonary disease) J43.2 COPD type: emphysema Emphysema type: centrilobular Acute kidney injury N17.9 Anxiety F41.9 Status post PICC central line placement Z95.828
[2021-05-25] MEDS: cefTRIAXone 1,000 MG in sodium chloride 0.9% (plus) 50 ML 100 MG IV (15:15)
[2021-05-25] MEDS: hydrocortisone 100 mg/2 mL SDV 50 MG IVP (16:02)
[2021-05-25 16:34] LABS: Blood Urea Nitrogen 47 mg/dL (8-23); Calcium 7.3 mg/dL (8.5-10.5); Carbon Dioxide 20 mmol/L (22-29); Chloride 94 mmol/L (98-107); Glomerular Filtration Rate 26.4 mL/min (90-130); Glucose 113 mg/dL (65-115); Osmolality Calculated 283 mOsm/kg (285-295); Sodium 130 mmol/L (136-145)
[2021-05-25 16:36] LABS: Anion Gap 19.6 (5-19); Potassium 3.6 mmol/L (3.5-5.1)
[2021-05-25 16:41] LABS: Procalcitonin 0.26 ng/mL (0-0.5)
[2021-05-25 16:54] LABS: Cortisol Random 16.71 ug/dL (2.47-19.5)
--- NOTE | 2021-05-25 17:25 | XRR_ITS ---
PROCEDURE INFORMATION: Exam: XR Chest Exam date and time: 05/25/2021 5:25 PM Age: 66 years old Clinical indication: Device placement; Picc TECHNIQUE: Imaging protocol: XR of the chest. Views: 1 view. COMPARISON: CR XR chest 1V portable [id number] 05/25/2021 12:27 PM FINDINGS: Limitations: The study is made with less than full inspiration. Tubes, catheters and devices: There is right PICC line in place with its tip in the region the right atrium. There is a right pleural drain in place. Lungs: Visualized portions of the left lung are clear. Pleural spaces: There is large right pleural effusion not significantly changed from the previous study. Heart/Mediastinum: Unremarkable. No cardiomegaly. Bones/joints: Unremarkable. XR/XR chest 1V portable [id number] IMPRESSION: 1. Right PICC line tip in the right atrium. 2. Large right pleural effusion not significantly changed.
[2021-05-25] MEDS: amiodarone 200 mg Tablet PO (18:35)
--- NOTE | 2021-05-25 19:32 | PC.NURSE ---
Admit Note Patient admitted to ICU from ER via [facility]. Covering service notified. Patient presents with hypotension. Orders reviewed & will continue to monitor. Patient and/or business process representative oriented to environment, equipment, and informed of the following as found in the admission booklet: patient rights & responsibilities, visitor policy, hand and respiratory hygiene practice. Other education includes: oxygen safety. Patient and/or business process representative verbalize understanding. DPOA paperwork brought by pt's daughter Niki, it was copied, copy placed in chart and original returned to family. PT is a pt of dr Almeida's. Dr Almeida's nurse was notified of pt's admission.
--- NOTE | 2021-05-25 19:49 | PC.NURSE ---
Levophed decreased at 1930 to 17 mcg per minute from 18 mcg per minute. MAR was not correct.
[2021-05-25 19:59] LABS: Appearance, Pleural Fluid CLOUDY (CLEAR); Color, Pleural Fluid Amber (Pale Yellow); Right Pleural Fluid Right Lung
[2021-05-25 20:10] LABS: Mononuclear %, Pleural Fluid 76 %; Mononuclear, Pleural Fluid # 0.019 10^3/uL; Polynuclear Cells, Pleural # 0.006 10^3/uL; Polynuclear Cells, Pleural % 24 %
--- NOTE | 2021-05-25 20:25 | PC.NURSE ---
Pt able to answer orientation questions correctly, but yells out when alone in room. Pt says inappropriate things, for example, asks for the lights to be turned on when they are already on. She asks to sit up in bed, when she is already sitting straight up. Pt appears to lose focus in the middle of sentences and her voice trails off.
[2021-05-25] MEDS: oxyCODONE 5 mg IR Tab/Cap PO (22:10)
--- NOTE | 2021-05-25 22:28 | PC.NURSE ---
Pt refuses to turn. Yells out for nursing to raise and lower HOB.
[2021-05-26] VITALS (187 sets, daily range): BP systolic 83–129; BP diastolic 51–77; PULSE 67–91; RESP 10–34; TEMP 36.5–37.2; O2SAT 71–100
--- NOTE | 2021-05-26 00:53 | PC.NURSE ---
No lung inspiratory sounds auscultated over right anterior lung griffiths. Pt resting quietly in bed with eyes closed.
--- NOTE | 2021-05-26 02:12 | PC.NURSE ---
Pt awoke disoriented, fearful, and tearful. She was easily reoriented x 4. Patient requests that this nurse sit at bedside with her, so that she isn't alone. Pt states that she wishes she was home, but she is scared of dying.
[2021-05-26 03:37] LABS: Basophils # 0.1 10^3/uL (0.0-0.1); Basophils % 0.3 %; Hematocrit 30.9 % (37.0-47.0); Hemoglobin 9.9 g/dL (11.5-15.3); Lymphocytes # 0.3 10^3/uL (0.8-4.8); Lymphocytes % 1.8 %; Mean Corpuscular Hemoglobin 26.8 pg (28.0-34.0); Mean Corpuscular Volume 83.7 fl (81-99); Mean Platelet Volume 9.8 fL (7.4-10.4); Monocytes % 5.2 %; Neutrophils # 16.53 10^3/uL (1.8-7.7); Neutrophils % 87.8 %; Nucleated Red Blood Cells % 0 %; Platelet Count 349 10^3/cmm (130-400); Red Blood Count 3.69 10^6/uL (4.1-5.3); Red Cell Distribution Width 17.4 % (12.1-15.1); White Blood Count 18.8 10^3/uL (4.0-10.0)
[2021-05-26 03:46] LABS: INR 1.02 (0.8-1.2)
[2021-05-26 03:51] LABS: Alanine Aminotransferase 62 U/L (0-33); Albumin Level 3.1 g/dL (3.5-5.2); Alkaline Phosphatase 118 IU/L (35-105); Anion Gap 17.9 (5-19); Aspartate Amino Transferase 39 U/L (0-32); Blood Urea Nitrogen 37 mg/dL (8-23); Calcium 7.6 mg/dL (8.5-10.5); Carbon Dioxide 21 mmol/L (22-29); Chloride 94 mmol/L (98-107); Globulin 1.7 g/dL (1.3-4.6); Glomerular Filtration Rate 40.9 mL/min (90-130); Glucose 165 mg/dL (65-115); Osmolality Calculated 280 mOsm/kg (285-295); Potassium 3.9 mmol/L (3.5-5.1); Sodium 129 mmol/L (136-145); Total Bilirubin 0.4 mg/dL (0.15-1.2); Total Protein 4.8 g/dL (6.6-8.7); Uric Acid 6.9 mg/dL (2.4-5.7)
[2021-05-26 04:05] LABS: Lactate Dehydrogenase 254 U/L (135-214)
[2021-05-26] MEDS: hydrocortisone 100 mg/2 mL SDV 50 MG IVP (04:48)
--- NOTE | 2021-05-26 06:08 | PC.NURSE ---
Pt appears angry, telling this nurse I want up, over and over. When pt repositioned into a more upright position, pt tells this nurse, I want up and out of this bed!. Pt has very audible coarse sounds from upper airway during inspiration. Coughing and deep breathing encouraged.
[2021-05-26] MEDS: aspirin 81 mg EC Tablet PO (08:14)
[2021-05-26] MEDS: ferrous gluconate 324 mg Tablet PO ×2 (08:14→19:07)
[2021-05-26] MEDS: lactobacillus 1 Tablet 1 TAB PO ×2 (08:14→19:06)
[2021-05-26] MEDS: rivaroxaban 10 mg Tablet 15 MG PO (08:14)
[2021-05-26] MEDS: pantoprazole DR 40 mg Tablet PO (08:14)
[2021-05-26] MEDS: amiodarone 200 mg Tablet PO (08:14)
--- NOTE | 2021-05-26 12:57 | P.PN_ITS ---
Subjective Subjective: Iram Denis is a 66 year old female who presented to the emergency room with low blood pressure.? 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 A few weeks ago she also had an admission with non-ST elevation ND and was found to have Takotsubo's cardiomyopathy.? At that time she was started on Lasix, carvedilol and losartan.? Ejection fraction was 40%.? Cardiac catheterization did not show any blockages.? She has been taking medications as prescribed.? H&P reviewed Levophed last night was at 18 currently she is at 8 mics, plan is to gradually wean off Levophed today No overnight events Pleural fluid analysis reviewed Labs reviewed Chronic hyponatremia Creatinine improved significantly Uric acid greater than 6 Right arm PICC line Vitals/I&O/Wt Last Vital Signs Temp 98.9 F 05/26/21 08:00 Pulse 73 05/26/21 10:25 Resp 18 05/26/21 10:25 BP 105/61 05/26/21 10:25 Pulse Ox 99 05/26/21 10:25 05/25/21 05/26/21 05/26/21 22:59 06:59 14:59 Intake Total 1462.108 / 2482.936 418.327 / 2901.263 1280.734 / 1280.734 Output Total 150 / 250 800 / 1050 Balance 1312.108 / 2232.936 -381.673 / 9717.596 5246.734 / 1280.734 Weight last 48 hrs Weight 57.969 kg Weight 60.781 kg Weight 60.781 kg Physical Exam Narrative: Extremely frail early female Currently laying in right lateral position Saturating well on 3 L nasal cannula No active complaint of shortness of breath or chest pain Endorsing fatigue and lethargy She is awake and alert able to answer all my questions Nonfocal neuro exam Clinically looks dehydrated Right arm PICC line EOMI, PERRLA No audible stridor or wheezing Abdomen is soft Urinary Catheter Management: [place]: Cath Placed During This Visit: yes Reason for Continuing Indwelling Catheter: Accurate Measurement of Urinary Output in Critically Ill Patients Urinary Catheter Date of Insertion: 05/25/21 Urinary Catheter Time of Insertion: 10:33 Data : 05/26/21 03:25 05/26/21 03:25 Micro: Microbiology 05/25/21 12:06 Blood Culture - Preliminary Blood NEGATIVE TO DATE 05/25/21 12:06 Blood Culture - Preliminary Blood NEGATIVE TO DATE 05/25/21 10:37 Urine Culture - Preliminary Urine,Clean Catch Yeast species A&P Assessment and plan (1) Status post PICC central line placement: Status: Chronic (2) Acute kidney injury: Status: Acute (3) H/O steroid therapy: Status: Chronic (4) On home oxygen therapy: Status: Chronic (5) Intermittent atrial fibrillation: Status: Chronic (6) Chronic anticoagulation: Status: Acute (7) Stage IV adenocarcinoma of lung: Status: Chronic Qualifiers: Laterality: right Qualified Code(s): C34.91 - Malignant neoplasm of unspecified part of right bronchus or lung (8) Takotsubo cardiomyopathy: Status: Chronic (9) Recurrent pleural effusion on right: Status: Chronic (10) Hypotension: Status: Acute Qualifiers: Hypotension type: hypotension due to drug Qualified Code(s): I95.2 - Hypotension due to drugs (11) Cystitis: Status: Acute Plan Medication induced hypotension Currently on titration of Levophed currently running at 8 mics It was at 18 mics last night when I saw her Antihypertensive regimen on hold Stress dose steroids given patient take steroids for her brain metastases Discontinue IV fluids Recently was diagnosed with Takotsubo cardiomyopathy EF 40%, random cortisol normal, albumin 3.1, normal TSH Acute kidney injury creatinine has significantly improved with IV fluid hydration and improvement in blood pressure. Intermittent A. 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 Stage IV lung cancer mets to brain, received radiotherapy, PICC line in place for immunotherapy Recurrent right-sided pleural effusion: Pleural fluid has been drained COPD without acute exacerbation Full code, plan for discharge tomorrow if clinically stable Yeast species noted in the urine, will give 1 dose of fluconazole Attestations Medical Necessity Statement*: Continue ICU management Time Spent in Patient Care: 25 minutes Coding Level of Care Code Acute Embryology Professor for Barbara Cruz Diagnoses Status post PICC central line placement Z95.828 Acute kidney injury N17.9 H/O steroid therapy Z92.241 On home oxygen therapy Z99.81 Intermittent atrial fibrillation I48.0 Chronic anticoagulation Z79.01 Stage IV adenocarcinoma of lung C34.91 Laterality: right Takotsubo cardiomyopathy I51.81 Recurrent pleural effusion on right J90 Hypotension I95.2 Hypotension type: hypotension due to drug Cystitis N30.90
[2021-05-26] MEDS: fluconazole premix 200 MG/100 ML PREMIX 100 MG IV (14:03)
[2021-05-26] MEDS: ipratropium-albuterol 3 mL Neb INHALATION ×2 (14:22→19:57)
[2021-05-26] MEDS: FUROsemide 10 mg/mL SDV 2mL 20 MG IVP (15:35)
[2021-05-26] MEDS: dexamethasone 4 mg Tablet 2 MG PO (19:06)
[2021-05-26] MEDS: docusate sodium 10 mg/mL (5ml) Liq 100 MG PO (19:06)
[2021-05-27] VITALS (36 sets, daily range): BP systolic 81–132; BP diastolic 51–79; PULSE 68–78; RESP 14–22; TEMP 36.6–36.8; O2SAT 94–100
--- NOTE | 2021-05-27 00:49 | PC.NURSE ---
Pt complaining of increased soa. Pt repositioned. Coughing and deep breathing encouraged, and performed. Pt reports decrease in soa.
[2021-05-27] MEDS: norepinephrine 8 MG in dextrose 5 % 500 ML 11.43 MG IV (01:17)
[2021-05-27 03:36] LABS: Basophils % 0.1 %; Hematocrit 27.8 % (37.0-47.0); Lymphocytes # 0.2 10^3/uL (0.8-4.8); Lymphocytes % 1.4 %; Mean Corpuscular HGB Conc 32.4 g/dL (30.0-36.0); Mean Corpuscular Hemoglobin 27.1 pg (28.0-34.0); Mean Corpuscular Volume 83.7 fl (81-99); Mean Platelet Volume 9.3 fL (7.4-10.4); Monocytes # 0.3 10^3/uL (0.2-0.9); Monocytes % 1.7 %; Neutrophils # 14.55 10^3/uL (1.8-7.7); Neutrophils % 92.7 %; Nucleated Red Blood Cells % 0 %; Platelet Count 343 10^3/cmm (130-400); Red Blood Count 3.32 10^6/uL (4.1-5.3); Red Cell Distribution Width 17.3 % (12.1-15.1); White Blood Count 15.7 10^3/uL (4.0-10.0)
[2021-05-27 03:57] LABS: Anion Gap 13.8 (5-19); Blood Urea Nitrogen 24 mg/dL (8-23); Calcium 8.1 mg/dL (8.5-10.5); Carbon Dioxide 27 mmol/L (22-29); Chloride 96 mmol/L (98-107); Glomerular Filtration Rate 71.5 mL/min (90-130); Glucose 119 mg/dL (65-115); Osmolality Calculated 281 mOsm/kg (285-295); Potassium 3.8 mmol/L (3.5-5.1); Sodium 133 mmol/L (136-145)
--- NOTE | 2021-05-27 05:02 | PC.NURSE ---
Dr. Keane at bedside at 0440. Order to drain PleurX drain received. No further orders at this time.
--- NOTE | 2021-05-27 05:28 | PC.NURSE ---
PleurX fluid dark edel and clear. Pt reports that very little fluid has been coming out of drain for the last several times that it has been drained.
[2021-05-27] MEDS: ipratropium-albuterol 3 mL Neb INHALATION (08:29)
[2021-05-27] MEDS: pantoprazole DR 40 mg Tablet PO (08:32)
[2021-05-27] MEDS: aspirin 81 mg EC Tablet PO (08:32)
[2021-05-27] MEDS: amiodarone 200 mg Tablet PO (08:33)
[2021-05-27] MEDS: dexamethasone 4 mg Tablet 2 MG PO (08:33)
[2021-05-27] MEDS: rivaroxaban 10 mg Tablet 15 MG PO (08:35)
[2021-05-27] MEDS: fluconazole 100 mg Tablet PO (08:35)
[2021-05-27] MEDS: ferrous gluconate 324 mg Tablet PO (08:35)
[2021-05-27] MEDS: lactobacillus 1 Tablet 1 TAB PO (08:38)
[2021-05-27] MEDS: docusate sodium 10 mg/mL (5ml) Liq 100 MG PO (08:38)
--- NOTE | 2021-05-27 09:54 | XR_ITS ---
WS: [id number] CHEST XRAY TECHNIQUE: Portable chest. CLINICAL INFORMATION: hypoxia COMPARISON: May 25, 2021 FINDINGS: RIGHT PICC line tip in the RIGHT atrium unchanged. Chest tube RIGHT lower lobe unchanged. Heart: Cardiomegaly. Lungs: Near complete opacification RIGHT hemithorax is unchanged compared to previous. Dense opacific ation RIGHT midlung and RIGHT lower lobe are similiar in appearance. Aeration of the RIGHT lung centr ally is unchanged. Volume loss RIGHT lung with LEFT to RIGHT mediastinal shift. LEFT lung is well aer ated. Bones: Osteopenia XR/XR chest 1V portable [id number] IMPRESSION: 1. RIGHT PICC line with tip in distal SVC. RIGHT chest tube along the RIGHT low er lobe unchanged. 2. Near complete opacification RIGHT hemithorax with volume loss and LEFT to RI GHT mediastinal shift is unchanged.
--- NOTE | 2021-05-27 10:13 | PC.NURSE ---
Shortness of breath event after X-Ray X-ray came in and did the chest x-ray, after which the patient became short of breath and had an O2 sat of 79. This director [employer] of nursing sat her up and increased the flow rate of the oxygen from 3 L to 4 L. Patient reports that she is always short of breath. Oxygen saturation has increased to 94 %, will continue to monitor.
--- NOTE | 2021-05-27 12:53 | P.DS_ITS ---
Discharge Providers Date of Admission: 05/25/21 12:16 Date of Discharge: May 27, 2021 Attending Provider at Admission: Kenia Castellanos MD Attending Provider at Discharge: Akosua Portillo MD Primary Care Provider: Jayna Schmitt MD Diagnoses at Discharge Discharge Diagnosis (1) Status post PICC central line placement: Status: Chronic (2) Acute kidney injury: Status: Acute (3) H/O steroid therapy: Status: Chronic Permanent problem details: on due to brain metastases presently (4) On home oxygen therapy: Status: Chronic Permanent problem details: 4L (5) Intermittent atrial fibrillation: Status: Chronic Permanent problem details: afib/flutter (6) Chronic anticoagulation: Status: Acute Permanent problem details: xarelto, due to history of pulmonary vein thrombosis and SVC syndrome, intermittent atrial fibrillation (7) Stage IV adenocarcinoma of lung: Status: Chronic Qualifiers: Laterality: right Qualified Code(s): C34.91 - Malignant neoplasm of unspecified part of right bronchus or lung Permanent problem details: Stage IVB (M1c), s/p chemo (carboplatin/paclitaxel finished end 2019) and radiation (completed 04/29/2020), immunotherapy offered Was stage IIIB (T4,N2,M0) at presentation 01/2020 (8) Takotsubo cardiomyopathy: Status: Chronic Permanent problem details: EF 40% 05/07/2021 (9) Recurrent pleural effusion on right: Status: Chronic Permanent problem details: malignant (10) Hypotension: Status: Acute Qualifiers: Hypotension type: hypotension due to drug Qualified Code(s): I95.2 - Hypotension due to drugs (11) Cystitis: Status: Acute Reason for Visit Reason for Visit: N/V/D Physical Exam Urinary Catheter Management: [place]: Cath Placed During This Visit: yes Reason for Continuing Indwelling Catheter: Accurate Measurement of Urinary Ou tput in Critically Ill Patients Urinary Catheter Date of Insertion: 05/25/21 Urinary Catheter Time of Insertion: 10:33 Discharge Data Studies Completed and Pending Completed Studies During Hospitalization Category Date Time Status CXRP [XR chest 1V portable [id number]] Stat Exams 05/25/21 17:25 Completed XR chest 1V portable [id number] Stat Exams 05/25/21 11:54 Completed XR chest 1V portable [id number] Stat Exams 05/27/21 09:54 Completed Pending at discharge Category Date Time Status Blood Culture Stat Lab 05/25/21 12:06 Results Body Fluid Culture Routine Lab 05/25/21 19:00 Results C DIFF [Clostridioides Difficile PCR] Routine Lab 05/25/21 12:03 Uncollected Urine Culture Stat Lab 05/25/21 10:37 Results Radiology Impressions Chest X-Ray 05/27/21 09:54 IMPRESSION: 1. RIGHT PICC line with tip in distal SVC. RIGHT chest tube along the RIGHT lower lobe unchanged. 2. Near complete opacification RIGHT hemithorax with volume loss and LEFT to RIGHT mediastinal shift is unchanged. Laboratory Results WBC 15.7 10^3/uL (4.0-10.0) H 05/27/21 03:28 RBC 3.32 10^6/uL (4.1-5.3) L 05/27/21 03:28 Hgb 9.0 g/dL (11.5-15.3) L 05/27/21 03:28 Hct 27.8 % (37.0-47.0) L 05/27/21 03:28 MCV 83.7 fl (81-99) 05/27/21 03:28 MCH 27.1 pg (28.0-34.0) L 05/27/21 03:28 MCHC 32.4 g/dL (30.0-36.0) 05/27/21 03:28 RDW 17.3 % (12.1-15.1) H 05/27/21 03:28 Plt Count 343 10^3/cmm (130-400) 05/27/21 03:28 MPV 9.3 fL (7.4-10.4) 05/27/21 03:28 Neut % (Auto) 92.7 % 05/27/21 03:28 Lymph % (Auto) 1.4 % 05/27/21 03:28 [place] % (Auto) 1.7 % 05/27/21 03:28 Eos % (Auto) 0.0 % 05/27/21 03:28 Baso % (Auto) 0.1 % 05/27/21 03:28 Neut # (Auto) 14.55 10^3/uL (1.8-7.7) H 05/27/21 03:28 Lymph # (Auto) 0.2 10^3/uL (0.8-4.8) L 05/27/21 03:28 [place] # (Auto) 0.3 10^3/uL (0.2-0.9) 05/27/21 03:28 Eos # (Auto) 0.0 10^3/uL (0.0-0.8) 05/27/21 03:28 Baso # (Auto) 0.0 10^3/uL (0.0-0.1) 05/27/21 03:28 Nucleated RBC % (auto) 0 % 05/27/21 03:28 Nucleated RBCs # 0.0 /100WBC 05/27/21 03:28 PT 13.70 SECONDS (12.1-14.9) 05/26/21 03:25 INR 1.02 (0.8-1.2) 05/26/21 03:25 Sodium 133 mmol/L (136-145) L 05/27/21 03:28 Potassium 3.8 mmol/L (3.5-5.1) 05/27/21 03:28 Chloride 96 mmol/L (98-107) L 05/27/21 03:28 Carbon Dioxide 27 mmol/L (22-29) 05/27/21 03:28 Anion Gap 13.8 (5-19) 05/27/21 03:28 BUN 24 mg/dL (8-23) H 05/27/21 03:28 Creatinine 0.8 mg/dL (0.5-0.9) 05/27/21 03:28 GFR Calculation 71.5 mL/min (90-130) L 05/27/21 03:28 Glucose 119 mg/dL (65-115) H 05/27/21 03:28 Calculated Osmolality 281 mOsm/kg (285-295) L 05/27/21 03:28 Lactic Acid 0.7 mmol/L (0.5-2.2) 05/25/21 12:06 Uric Acid 6.9 mg/dL (2.4-5.7) H 05/26/21 03:25 Calcium 8.1 mg/dL (8.5-10.5) L 05/27/21 03:28 Phosphorus 4.0 mg/dL (2.5-4.5) 05/26/21 03:25 Magnesium 2.0 mg/dL (1.7-2.3) 05/26/21 03:25 Total Bilirubin 0.4 mg/dL (0.15-1.2) 05/26/21 03:25 AST 39 U/L (0-32) H 05/26/21 03:25 ALT 62 U/L (0-33) H 05/26/21 03:25 Alkaline Phosphatase 118 IU/L (35-105) H 05/26/21 03:25 Lactate Dehydrogenase 254 U/L (135-214) H 05/26/21 03:25 Total Protein 4.8 g/dL (6.6-8.7) L 05/26/21 03:25 Albumin 3.1 g/dL (3.5-5.2) L 05/26/21 03:25 Globulin 1.7 g/dL (1.3-4.6) 05/26/21 03:25 Procalcitonin 0.26 ng/mL (0-0.5) 05/25/21 15:50 Random Cortisol 16.71 ug/dL (2.47-19.5) 05/25/21 15:50 Urine Color Dark yellow (Yellow) 05/25/21 10:37 Urine Appearance Cloudy (CLEAR) 05/25/21 10:37 Urine pH 5 (5-7) 05/25/21 10:37 Ur Specific [place] 1.020 (1.005-1.030) 05/25/21 10:37 Urine Protein Trace (Negative) 05/25/21 10:37 Urine Glucose (UA) Norm (Normal) 05/25/21 10:37 Urine Ketones Negative (Negative) 05/25/21 10:37 Urine Blood 3+ (Negative) H 05/25/21 10:37 Urine Nitrate Negative (Negative) 05/25/21 10:37 Urine Bilirubin 1+ (Negative) H 05/25/21 10:37 Urine Urobilinogen 1 mg/dL (Negative) H 05/25/21 10:37 Ur Leukocyte Esterase 1+ (Negative) H 05/25/21 10:37 Urine RBC 5-10 /hpf (0-2) H 05/25/21 10:37 Urine WBC 40-55 /hpf (0-5) H 05/25/21 10:37 Ur Squamous Epith Cells 0-4 /hpf (0-5) H 05/25/21 10:37 Amorphous Sediment Not Reportable 05/25/21 10:37 Urine Bacteria 1+ /hpf (NONE) H 05/25/21 10:37 Urine Yeast 2+ /hpf H 05/25/21 10:37 Pleural Color Tonie (Pale Yellow) H 05/25/21 19:00 Pleural Appearance Cloudy (CLEAR) 05/25/21 19:00 Pleural WBC 25.000 /uL (0-1000) 05/25/21 19:00 Pleural RBC 8.000 10^3/uL 05/25/21 19:00 Pleural Mononuc # Auto 0.019 10^3/uL 05/25/21 19:00 Pleural Polynuclear % 24 % 05/25/21 19:00 Pleural Polynuclear # 0.006 10^3/uL 05/25/21 19:00 Pleural Mononuclear % 76 % 05/25/21 19:00 Pleural Other Cells Rt Right lung 05/25/21 19:00 Vitals Last Vital Signs Temp 98.2 F 05/27/21 12:00 Pulse 77 05/27/21 12:00 Resp 22 H 05/27/21 12:00 BP 111/70 05/27/21 12:00 Pulse Ox 97 05/27/21 12:00 Discharge Plan Discharge Patient Disposition: Home Condition: Stable Prescriptions: New Lasix 20 mg tablet 20 mg PO DAILY Qty: 60 3RF Continued ipratropium-albuterol 0.5 mg-3 mg(2.5 mg base)/3 mL solution for nebulization 3 ml INHALATION TID PRN (Reason: Shortness Of Breath) 30 Days Qty: 360 4RF clonazepam 0.5 mg tablet 0.5 mg PO TID PRN (Reason: Anxiety) Qty: 90 0RF Label Comments: patient mentioned starting xanax? need to confirm next visit 03-16-21 trazodone 50 mg tablet 50 mg PO BEDTIME PRN (Reason: Sleep) 0RF oxycodone 10 mg tablet 10 mg PO Q4H PRN (Reason: Pain) 0RF aspirin 81 mg Tablet,Delayed Release (Dr/Ec) 81 mg PO DAILY 30 Days Qty: 30 0RF potassium chloride [Klor-Con M20] 20 mEq Tablet,Er Particles/Crystals 20 meq PO DAILY 30 Days Qty: 30 0RF pantoprazole 40 mg Tablet,Delayed Release (Dr/Ec) 40 mg PO DAILY 30 Days Qty: 30 0RF ferrous gluconate 324 mg (37.5 mg iron) Tablet 324 mg PO BIDWM 30 Days Qty: 60 0RF albuterol sulfate [ProAir HFA] 90 mcg/actuation HFA aerosol inhaler 2 puff INHALATION QID PRN (Reason: Shortness Of Breath) 0RF Label Comments: patient mentioned starting xanax? need to confirm next visit 03-16-21 amiodarone 200 mg tablet 200 mg PO BID 0RF Label Comments: patient mentioned starting xanax? need to confirm next visit 03-16-21 Xarelto 15 mg tablet 15 mg PO DAILY 0RF Label Comments: patient mentioned starting xanax? need to confirm next visit 03-16-21 dexamethasone 4 mg tablet 2 mg PO BID 0RF amoxicillin-pot clavulanate 400-57 mg/5 mL suspension for reconstitution 11 ml PO BID 0RF Rx Instructions: x 10 days Discontinued furosemide 40 mg Tablet 40 mg PO DAILY@0800 30 Days Qty: 30 0RF carvedilol 3.125 mg Tablet 3.125 mg PO BID 30 Days Qty: 60 0RF Discharge Orders: Discharge Order (Routine); Ordered 05/27/21 Ordered By: Akosua Portillo Other Ambulatory Orders: DME: Hospital Bed (Order) Location: None Selected Ordered By: Akosua Portillo DME: Wheelchair (Order) Location: None Selected Ordered By: Akosua Portillo Referrals: [facility] ([facility]) [Outside] Jayna Schmitt MD [Primary Care Provider] - Discharge Diet: Cardiac Discharge Activity: Limit activity as instructed and Oxygen as instructed Patient Instructions: Opioid Safety Discharge Attestations Time Spent in Discharge Care*: less than 30 min Status at Discharge: Cognitive status at discharge: cognitively intact , Behavioral status at discharge: cooperative , Quality Metrics Clinical Quality Measures [ No reported AMI, CVA or VTE this stay] Coding Level of Care Code Acute Chg FW DC note Diagnoses Status post PICC central line placement Z95.828 Acute kidney injury N17.9 H/O steroid therapy Z92.241 On home oxygen therapy Z99.81 Intermittent atrial fibrillation I48.0 Chronic anticoagulation Z79.01 Stage IV adenocarcinoma of lung C34.91 Laterality: right Takotsubo cardiomyopathy I51.81 Recurrent pleural effusion on right J90 Hypotension I95.2 Hypotension type: hypotension due to drug Cystitis N30.90
--- NOTE | 2021-05-27 12:57 | P.DS_ITS ---
Discharge Providers Date of Admission: 05/25/21 12:16 Date of Discharge: May 27, 2021 Attending Provider at Admission: Kenia Castellanos MD Attending Provider at Discharge: Akosua Portillo MD Primary Care Provider: Jayna Schmitt MD Diagnoses at Discharge Discharge Diagnosis (1) Status post PICC central line placement: Status: Chronic (2) Acute kidney injury: Status: Acute (3) H/O steroid therapy: Status: Chronic Permanent problem details: on due to brain metastases presently (4) On home oxygen therapy: Status: Chronic Permanent problem details: 4L (5) Intermittent atrial fibrillation: Status: Chronic Permanent problem details: afib/flutter (6) Chronic anticoagulation: Status: Acute Permanent problem details: xarelto, due to history of pulmonary vein thrombosis and SVC syndrome, intermittent atrial fibrillation (7) Stage IV adenocarcinoma of lung: Status: Chronic Qualifiers: Laterality: right Qualified Code(s): C34.91 - Malignant neoplasm of unspecified part of right bronchus or lung Permanent problem details: Stage IVB (M1c), s/p chemo (carboplatin/paclitaxel finished end 2019) and radiation (completed 04/29/2020), immunotherapy offered Was stage IIIB (T4,N2,M0) at presentation 01/2020 (8) Takotsubo cardiomyopathy: Status: Chronic Permanent problem details: EF 40% 05/07/2021 (9) Recurrent pleural effusion on right: Status: Chronic Permanent problem details: malignant (10) Hypotension: Status: Acute Qualifiers: Hypotension type: hypotension due to drug Qualified Code(s): I95.2 - Hypotension due to drugs (11) Cystitis: Status: Acute Reason for Visit Reason for Visit: N/V/D Hospital Course Hospital Course Note is done by Dr. Castellanos at the time of admission Iram Denis is a 66 year old female who presented to the emergency room with low blood pressure.? 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 A few weeks ago she also had an admission with non-ST elevation FL and was found to have Takotsubo's cardiomyopathy.? At that time she was started on Lasix, carvedilol and losartan.? Ejection fraction was 40%.? Cardiac catheterization did not show any blockages.? She has been taking medications as prescribed.? Since that time it s ounds like she has been getting progressively weaker and more tired.? Today she was found to have blood pressure in the 50s to 60s systolic.? She had been seen last week with borderline blood pressures and at that time losartan was held.? She was continued on Lasix and carvedilol.? She received 2 L of IV fluids in the emergency room without significant improvement in her blood pressure and ultimat theodora ended up requiring pressor support.? Lactic acid was normal at 0.7.? Patient had reported some nausea vomiting and diarrhea with onset today.? No episodes occurred in the emergency room.? Denies chest pain.? She has been short of breath but that is not that unusual for her.? She was up to 12 mics of Levophed with persistent hypotension.? Work-up showed an abnormal urinalysis suggestive of possible urinary tract infection.? She received a dose of Rocephin for this.? She is being admitted for further evaluation and treatment.? Of note she does have significant increase in BUN and creatinine from prior values.? Other labs are not that dissimilar from previous.? Albumin is also quite low comparatively today at 2.1.? History is limited from her due to acute illness and is as noted below were obtained on chart review. Hospital course Patient was admitted for management of drug induced hypotension versus UTI She required ceftriaxone and vasopressors in the ICU which were gradually weaned off in 24 hours. She was given stress dose steroids, random cortisol level, TSH normal. Right-sided pleural fluid was drained which did not show any significant improvement in aeration. Patient was saturating well on her home oxygen requirement of 3 to 4 L. She is extremely weak and lethargic, suffering from significant muscle mass loss, cachexia. Patient has a PICC line and she is eager to start her immunotherapy for her lung cancer. I did discuss goals of care with her daughter, she told me that Ms. Denis is very enthusiastic and motivated to get immunotherapy and she wants to give herself a chance to fight with the cancer however she has been getting worse and functional status is declining. We did discuss that if she is not able to get out of the bed and not able to walk and able to [address] [facility] this should be read discussed and hospice care be pursued. She completely understand what hospice care entails as her is a consultants intern. I did prescribe hospital bed at the time of discharge. Medina catheter will be removed at the time of discharge Leukocytosis improved white count at admission 18, at the time of discharge 15 Creatinine at admission 1.9, at discharge 0.8 Urine culture grew yeast, I gave her fluconazole 200 mg IV and then 7-day regimen, identification is still pending cultures negative, pleural fluid culture showing no growth at this point Changes in meds: Discontinue Coreg, decrease the dose of Lasix Continue amiodarone Added fluconazole Wheelchair and hospital bed provided Physical Exam Narrative: Extremely frail early female Currently laying supine, able to get up on her own, I did inspect her right pleural drain Saturating well on 3 L nasal cannula No active complaint of shortness of breath or chest pain Endorsing fatigue and lethargy She is awake and alert able to answer all my questions Nonfocal neuro exam Clinically looks dehydrated Right arm PICC line EOMI, PERRLA No audible stridor or wheezing Abdomen is so Urinary Catheter Management: Medina: Cath Placed During This Visit: yes Reason for Continuing Indwelling Catheter: Accurate Measurement of Urinary Output in Critically Ill Patients Urinary Catheter Date of Insertion: 05/25/21 Urinary Catheter Time of Insertion: 10:33 Discharge Data Studies Completed and Pending Completed Studies During Hospitalization Category Date Time Status CXRP [XR chest 1V portable [id number]] Stat Exams 05/25/21 17:25 Completed XR chest 1V portable [id number] Stat Exams 05/25/21 11:54 Completed XR chest 1V portable [id number] Stat Exams 05/27/21 09:54 Completed Pending at discharge Category Date Time Status Blood Culture Stat Lab 05/25/21 12:06 Results Body Fluid Culture Routine Lab 05/25/21 19:00 Results C DIFF [Clostridioides Difficile PCR] Routine Lab 05/25/21 12:03 Uncollected Urine Culture Stat Lab 05/25/21 10:37 Results Radiology Impressions Chest X-Ray 05/27/21 09:54 IMPRESSION: 1. RIGHT PICC line with tip in distal SVC. RIGHT chest tube along the RIGHT lower lobe unchanged. 2. Near complete opacification RIGHT hemithorax with volume loss and LEFT to RIGHT mediastinal shift is unchanged. Laboratory Results WBC 15.7 10^3/uL (4.0-10.0) H 05/27/21 03:28 RBC 3.32 10^6/uL (4.1-5.3) L 05/27/21 03:28 Hgb 9.0 g/dL (11.5-15.3) L 05/27/21 03:28 Hct 27.8 % (37.0-47.0) L 05/27/21 03:28 MCV 83.7 fl (81-99) 05/27/21 03:28 MCH 27.1 pg (28.0-34.0) L 05/27/21 03:28 MCHC 32.4 g/dL (30.0-36.0) 05/27/21 03:28 RDW 17.3 % (12.1-15.1) H 05/27/21 03:28 Plt Count 343 10^3/cmm (130-400) 05/27/21 03: MPV 9.3 fL (7.4-10.4) 05/27/21 03:28 Neut % (Auto) 92.7 % 05/27/21 03:28 Lymph % (Auto) 1.4 % 05/27/21 03:28 Gilliam % (Auto) 1.7 % 05/27/21 03:28 Eos % (Auto) 0.0 % 05/27/21 03:28 Baso % (Auto) 0.1 % 05/27/21 03: Neut # (Auto) 14.55 10^3/uL (1.8-7.7) H 05/27/21 03:28 Lymph # (Auto) 0.2 10^3/uL (0.8-4.8) L 05/27/21 03:28 Gilliam # (Auto) 0.3 10^3/uL (0.2-0.9) 05/27/21 03:28 Eos # (Auto) 0.0 10^3/uL (0.0-0.8) 05/27/21 03:28 Baso # (Auto) 0.0 10^3/uL (0.0-0.1) 05/27/21 03:28 Nucleated RBC % (auto) 0 % 05/27/21 03:28 Nucleated RBCs # 0.0 /100WBC 05/27/21 03:28 PT 13.70 SECONDS (12.1-14.9) 05/26/21 03:25 INR 1.02 (0.8-1.2) 05/26/21 03:25 Sodium 133 mmol/L (136-145) L 05/27/21 03:28 Potassium 3.8 mmol/L (3.5-5.1) 05/27/21 03:28 Chloride 96 mmol/L (98-107) L 05/27/21 03:28 Carbon Dioxide 27 mmol/L (22-29) 05/27/21 03:28 Anion Gap 13.8 (5-19) 05/27/21 03:28 BUN 24 mg/dL (8-23) H 05/27/21 03:28 Creatinine 0.8 mg/dL (0.5-0.9) 05/27/21 03:28 GFR Calculation 71.5 mL/min (90-130) L 05/27/21 03:28 Glucose 119 mg/dL (65-115) H 05/27/21 03:28 Calculated Osmolality 281 mOsm/kg (285-295) L 05/27/21 03:28 Lactic Acid 0.7 mmol/L (0.5-2.2) 05/25/21 12:06 Uric Acid 6.9 mg/dL (2.4-5.7) H 05/26/21 03:25 Calcium 8.1 mg/dL (8.5-10.5) L 05/27/21 03:28 Phosphorus 4.0 mg/dL (2.5-4.5) 05/26/21 03:25 Magnesium 2.0 mg/dL (1.7-2.3) 05/26/21 03:25 Total Bilirubin 0.4 mg/dL (0.15-1.2) 05/26/21 03:25 AST 39 U/L (0-32) H 05/26/21 03:25 ALT 62 U/L (0-33) H 05/26/21 03:25 Alkaline Phosphatase 118 IU/L (35-105) H 05/26/21 03:25 Lactate Dehydrogenase 254 U/L (135-214) H 05/26/21 03:25 Total Protein 4.8 g/dL (6.6-8.7) L 05/26/21 03:25 Albumin 3.1 g/dL (3.5-5.2) L 05/26/21 03:25 Globulin 1.7 g/dL (1.3-4.6) 05/26/21 03:25 Procalcitonin 0.26 ng/mL (0-0.5) 05/25/21 15:50 Random Cortisol 16.71 ug/dL (2.47-19.5) 05/25/21 15:50 Urine Color Dark yellow (Yellow) 05/25/21 10:37 Urine Appearance Cloudy (CLEAR) 05/25/21 10:37 Urine pH 5 (5-7) 05/25/21 10:37 Ur Specific Holden 1.020 (1.005-1.030) 05/25/21 10:37 Urine Protein Trace (Negative) 05/25/21 10:37 Urine Glucose (UA) Norm (Normal) 05/25/21 10:37 Urine Ketones Negative (Negative) 05/25/21 10:37 Urine Blood 3+ (Negative) H 05/25/21 10:37 Urine Nitrate Negative (Negative) 05/25/21 10:37 Urine Bilirubin 1+ (Negative) H 05/25/21 10:37 Urine Urobilinogen 1 mg/dL (Negative) H 05/25/21 10:37 Ur Leukocyte Esterase 1+ (Negative) H 05/25/21 10:37 Urine RBC 5-10 /hpf (0-2) H 05/25/21 10:37 Urine WBC 40-55 /hpf (0-5) H 05/25/21 10:37 Ur Squamous Epith Cells 0-4 /hpf (0-5) H 05/25/21 10:37 Amorphous Sediment Not Reportable 05/25/21 10:37 Urine Bacteria 1+ /hpf (NONE) H 05/25/21 10:37 Urine Yeast 2+ /hpf H 05/25/21 10:37 Pleural Color Tonie (Pale Yellow) H 05/25/21 19:00 Pleural Appearance Cloudy (CLEAR) 05/25/21 19:00 Pleural WBC 25.000 /uL (0-1000) 05/25/21 19:00 Pleural RBC 8.000 10^3/uL 05/25/21 19:00 Pleural Mononuc # Auto 0.019 10^3/uL 05/25/21 19:00 Pleural Polynuclear % 24 % 05/25/21 19:00 Pleural Polynuclear # 0.006 10^3/uL 05/25/21 19:00 Pleural Mononuclear % 76 % 05/25/21 19:00 Pleural Other Cells Rt Right lung 05/25/21 19:00 Vitals Last Vital Signs Temp 98.2 F 05/27/21 12:00 Pulse 77 05/27/21 12:00 Resp 22 H 05/27/21 12:00 BP 111/70 05/27/21 12:00 Pulse Ox 97 05/27/21 12:00 Discharge Plan Discharge Patient Disposition: Home Condition: Stable Prescriptions: New Lasix 20 mg tablet 20 mg PO DAILY Qty: 60 3RF fluconazole 100 mg tablet 100 mg PO DAILY 10 Days Qty: 10 0RF Continued ipratropium-albuterol 0.5 mg-3 mg(2.5 mg base)/3 mL solution for nebulization 3 ml INHALATION TID PRN (Reason: Shortness Of Breath) 30 Days Qty: 360 4RF clonazepam 0.5 mg tablet 0.5 mg PO TID PRN (Reason: Anxiety) Qty: 90 0RF Label Comments: patient mentioned starting xanax? need to confirm next visit 03-16-21 trazodone 50 mg tablet 50 mg PO BEDTIME PRN (Reason: Sleep) 0RF oxycodone 10 mg tablet 10 mg PO Q4H PRN (Reason: Pain) 0RF aspirin 81 mg Tablet,Delayed Release (Dr/Ec) 81 mg PO DAILY 30 Days Qty: 30 0RF potassium chloride [Klor-Con M20] 20 mEq Tablet,Er Particles/Crystals 20 meq PO DAILY 30 Days Qty: 30 0RF pantoprazole 40 mg Tablet,Delayed Release (Dr/Ec) 40 mg PO DAILY 30 Days Qty: 30 0RF ferrous gluconate 324 mg (37.5 mg iron) Tablet 324 mg PO BIDWM 30 Days Qty: 60 0RF albuterol sulfate [ProAir HFA] 90 mcg/actuation HFA aerosol inhaler 2 puff INHALATION QID PRN (Reason: Shortness Of Breath) 0RF Label Comments: patient mentioned starting xanax? need to confirm next visit 03-16-21 amiodarone 200 mg tablet 200 mg PO BID 0RF Label Comments: patient mentioned starting xanax? need to confirm next visit 03-16-21 Xarelto 15 mg tablet 15 mg PO DAILY 0RF Label Comments: patient mentioned starting xanax? need to confirm next visit 03-16-21 dexamethasone 4 mg tablet 2 mg PO BID 0RF amoxicillin-pot clavulanate 400-57 mg/5 mL suspension for reconstitution 11 ml PO BID 0RF Rx Instructions: x 10 days Discontinued furosemide 40 mg Tablet 40 mg PO DAILY@0800 30 Days Qty: 30 0RF carvedilol 3.125 mg Tablet 3.125 mg PO BID 30 Days Qty: 60 0RF Discharge Orders: Discharge Order (Routine); Ordered 05/27/21 Ordered By: Akosua Portillo Other Ambulatory Orders: DME: Hospital Bed (Order) Location: None Selected Ordered By: Akosua Portillo DME: Wheelchair (Order) Location: None Selected Ordered By: Akosua Portillo [place] [facility] [place]) [Outside] ([facility] [phone]) Jayna Schmitt MD [Primary Care Provider] - 4-7 days (POST FOLLOW UP FROM HOSPITAL ABOUT 1 WEEK , SCHEDULED WITH DR.CARRIE MORE / HUMZA MILTON APN NURSE , , [facility] [phone] FOR THE DATE OF ,Tuesday AT TIME OF 10:30 AM) Discharge Diet: Cardiac Discharge Activity: Limit activity as instructed and Oxygen as instructed Patient Instructions: Furosemide (By mouth) (Lasix), Acute Kidney Injury (DC), PICC (Peripherally Inserted Central Catheter) (DC), Michael-Close Drain Care (DC), COPD Stoplight, Opioid Safety, Using Oxygen at Home Discharge Attestations Time Spent in Discharge Care*: less than 30 min Status at Discharge: Cognitive status at discharge: cognitively intact , Behavioral status at discharge: cooperative , Quality Metrics Clinical Quality Measures [ No reported AMI, CVA or VTE this stay] Coding Level of Care Code Acute Chg FW DC note Diagnoses Status post PICC central line placement Z95.828 Acute kidney injury N17.9 H/O steroid therapy Z92.241 On home oxygen therapy Z99.81 Intermittent atrial fibrillation I48.0 Chronic anticoagulation Z79.01 Stage IV adenocarcinoma of lung C34.91 Laterality: right Takotsubo cardiomyopathy I51.81 Recurrent pleural effusion on right J90 Hypotension I95.2 Hypotension type: hypotension due to drug Cystitis N30.90
== END 2021-05-27 17:22 | disposition home health service (06) | DRG 312 ==
LOC: ER 09:53 → ICU 12:41
PROVIDERS: Admitting Provider Hospitalist; Emergency Provider Family Medicine; PCP Internal Medicine; Visit Provider Internal Medicine
DX: I95.2 Hypotension due to drugs (principal); N17.9 Acute kidney failure, unspecified; C34.90 Malignant neoplasm of unspecified part of unspecified bronchus or lung; C79.31 Secondary malignant neoplasm of brain; J91.0 Malignant pleural effusion; I51.81 Takotsubo syndrome; B37.49 Other urogenital candidiasis; R64 Cachexia; N30.00 Acute cystitis without hematuria; I25.2 Old myocardial infarction; I48.0 Paroxysmal atrial fibrillation; M17.12 Unilateral primary osteoarthritis, left knee; F41.0 Panic disorder [episodic paroxysmal anxiety]; Z86.711 Personal history of pulmonary embolism; Z87.891 Personal history of nicotine dependence; E86.0 Dehydration; Z79.01 Long term (current) use of anticoagulants; Z79.51 Long term (current) use of inhaled steroids; Z79.82 Long term (current) use of aspirin; Z79.891 Long term (current) use of opiate analgesic; Z95.828 Presence of other vascular implants and grafts; Z92.3 Personal history of irradiation; Z92.21 Personal history of antineoplastic chemotherapy; Z85.41 Personal history of malignant neoplasm of cervix uteri; J43.2 Centrilobular emphysema
CPT/HCPCS: 36415; 36569; 36592; 51702; 71045; 80048; 80053; 80500; 81001; 82533; 83605; 83615; 83735; 84100; 84145; 84550; 85025; 85610; 87040; 87070; 87075; 87086; 87106; 87205; 89050; 93005; 94640; 96365; 96375; 99283; 99285; C1751; J0696; J1450; J1720; J1940; J2405; J3480; J7030; J8540; P9047

== ENCOUNTER 2021-06-04 21:05 | Inpatient (IN) | payer MEDICARE, MEDICAID, SELFPAY ==
[2021-06-04 21:07] VITALS: BP 87/51; PULSE 107; RESP 18; TEMP 35.4; O2SAT 94; BMI 21.4
--- NOTE | 2021-06-04 21:12 | ED_ITS ---
HPI - Abdominal Pain General: Chief Complaint: Abdominal Pain Stated Complaint: abd pain hypotensive Time Seen by Provider: 06/04/21 21:12 Limitations: altered mental status History of Present Illness: Ms. Denis is a 66-year-old lady with complex past medical history including metastatic lung cancer who presents emergency department due to abdominal pain. Patient does reportedly have a baseline oxygen requirement however was found by EMS to be hypoxemic in respiratory distress. Patient is currently on 15 L of oxygen. She has difficulty articulating much of clinical history and appears somewhat somnolent. She does report abdominal pain starting earlier today that is mostly in the left upper quadrant though also generalized. Worse with movement and palpation. She reports is having bowel movements. No other specific exacerbating relieving fac tors identified. Pertinent past history: other Onset (ago): hour(s) Pain Consistency: constant Location: Diffuse and LUQ Severity: severe Exacerbating factors: movement Relieving factors: nothing Context: other Review of Systems General: Reports: 10 or more systems reviewed and unremarkable except in HPI and below PFSH ED PFSH: Medical History Acute kidney injury Anemia Anxiety Brain metastasis s/p whole brain radiation ending 03/23/2021 Chronic anticoagulation xarelto, due to history of pulmonary vein thrombosis and SVC syndrome, int ermittent atrial fibrillation COPD (chronic obstructive pulmonary disease) Cystitis H/O steroid therapy on due to brain metastases presently History of cervical cancer History of left heart catheterization (05/07/21) no significant coronary artery disease Hyponatremia Intermittent atrial fibrillation afib/flutter Migraines On home oxygen therapy 4L Osteoarthritis of left knee Panic disorder [episodic paroxysmal anxiety] Pulmonary venous thrombosis (~04/2020) Recurrent pleural effusion on right malignant Stage IV adenocarcinoma of lung Stage IVB (M1c), s/p chemo (carboplatin/paclitaxel finished end 2019) and radiation (completed 04/29/2020), immunotherapy offered Was stage IIIB (T4,N2,M0) at presentation 01/2020 Superior vena cava thrombosis Takotsubo cardiomyopathy EF 40% 05/07/2021 Thrombosis of superior vena cava Surgical History Hx of cholecystectomy Other postprocedural status pleurx catheter placed by Dr Meadows 01/07/2021, 04/01/2021 S/P bronchoscopy 02/08/2020, 12/12/2020 Status post PICC central line placement Family History Other CAD (coronary artery disease) Cancer Dementia Hypertension Lung disease Stroke Denies family history of Diabetes Hyperlipidemia Chronic kidney disease (CKD) Family history of premature coronary artery disease Social History Quit status (tobacco): has quit using tobacco Year quit tobacco: 2020 Alcohol intake: current Alcohol intake frequency: few times a month Alcohol type: beer Household members: family Marital status: Current occupational status: retired 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, 2 steps in back with no handrails, advise Current gender identity: Female Physical Exam Const: COMMON NORMALS: alert GENERAL APPEARANCE: cooperative, ill appearing and frail appearing HENMT: COMMON NORMALS: normocephalic and atraumatic HEAD & SCALP: normocephalic and atraumatic THROAT: other (Dry mucous membranes) Eye: COMMON NORMALS: conjunctivae normal CONJUNCTIVA: Yes conjunctivae normal SCLERA: sclerae normal Neck/C-Spine: COMMON NORMALS: supple GENERAL: Yes trachea midline Resp: EFFORT & INSPECTION: Yes tachypneic AUSCULTATION: rhonchi right upper and right lower and diminished lung sounds Cardio: COMMON NORMALS: regular rhythm RATE: tachycardic RHYTHM: regular rhythm GI: COMMON NORMALS: Soft to palpation PALPATION: Yes Soft to palpation, Yes Tenderness to palpation present (GI), Yes Guarding due to palpation present (GI) and No Rigid due to palpation Extremity: GENERAL: Yes normal exam except as noted and No edema Neuro: COMMON NORMALS: moves all extremities SENSORIUM/ORIENTATION: Yes alert and No Orientation impaired OTHER: Somnolent Course ED course: - Patient was seen and evaluated by me at bedside - Patient placed on cardiac monitors, IV access obtained - Initial evaluation notable for ill appearance, patient is requiring supplemental oxygen greater than baseline and is tachycardic. - Labs notable for marked leukocytosis. Hemoglobin and platelet count within normal limits. Metabolic panel with evidence of dehydration and TERESA. Transaminitis of unclear etiology, likely secondary to critical illness. BNP is elevated. - Imaging notable for CT head appears similar without evidence of hemorrhage or new metastatic lesion. Patient unfortunately did undergo contrasted CT prior to result of creatinine. Patient has no evidence of pulmonary embolism, she likely has pneumonia as well as continued large volume malignant effusion. Mild colitis noted on abdomen and pelvis. - Patient treated during ED course with broad-spectrum IV antibiotics. The patient has a history of heart failure with reduced ejection fraction and 500 cc aliquots of fluid were administered with serial reexamination. Patient has some improvement in blood pressure though blood pressure remained soft. - Upon serial reexamination after treatment the patient was somewhat improved overall though remains critically ill - Based on patient history, evaluation, labs, and imaging as interpreted the most likely cause of the patient's condition is multifactorial including most significantly sepsis, TERESA, malignant pleural effusion. Plan to obtain equipment for drainage of PleurX catheter. - The results of ED evaluation were discussed with the patient including plan for admission due to requirement for level of care not available if discharged to prevent significant worsening/deterioration. I did discuss the case with the patient's DPOA, patient wishes to continue with all cares possible and continues to be full code. - Admitting service was contacted and Dr Gao with the hospitalist service agreed to admit the patient - Patient was admitted to the ICU in critical condition. Just prior to transfer to ICU blood pressure was noted to be 70 systolic. Levophed ordered. MAP improved on repeat blood pressure the patient will require initiation of vasopressor. Note: Click bubbles or prepopulated griffiths in note writing are used for assistance with data collection and billing and are inherently more limited than narrative and other text portions of this note. Please use narrative for additional clinical history and defer to narrative/free test for any case of contradictory information. If information appears in only free text or click bubble it should be considered present or absent as reported. Please contact note ghost writer for clarifications of clinical information or contradictory information. MDM is a brief summary, contradictory or erroneous seeming information should be clarified and full note should be reviewed. - Nursing notes are erroneously endorsed 15 under oxygen saturation however this was referring to oxygen supplemental rate at 15 L/min, patient maintained greater than 92% oxygen saturation throughout ED stay with supplemental oxygen. Vital Signs: Vital signs: Vital Signs Temperature 97.3 F L 06/07/21 14:29 Pulse Rate 68 06/07/21 14:29 Respiratory Rate 16 06/07/21 14:29 Blood Pressure 105/82 06/07/21 14:29 Pulse Oximetry 88 L 06/07/21 14:29 MDM - Abdominal Pain Medical Decision Making 66-year-old lady with history of metastatic lung cancer presenting with respiratory distress and abdominal pain. Patient found to have sepsis likely related to pneumonia and colitis as well as TERESA. Admitted to ICU for further management and stabilization. Medical Records I reviewed the patient's medical records. Lab Data I reviewed the patient's lab results. : 06/07/21 03:50 06/07/21 03:50 Labs/Radiology: Radiology Impressions Chest/Abdomen/Pelvis CT 06/04/21 21:13 IMPRESSION: 1. No evidence for pulmonary embolus. 2. Stable malignant mass in the suprahilar right upper lobe with extension to the hilum and probable extension into the central right middle and lower lobes. 3. Stable narrowing of multiple right bronchi. 4. Stable atelectasis and collapse of the right upper and middle lobes. 5. Consolidation without volume loss in the right lower lobe likely represents a combination of pneumonia and possible neoplasm. 6. Stable large right pleural effusion with pleural thickening. A malignant effusion is not excluded. IMPRESSION: 1. Mild wall thickening and mucosal enhancement in the colon and rectum could represent infectious or inflammatory colitis. 2. Stable lytic lesion in the left iliac bone, possibly metastatic disease. 3. Mild ascites. 4. Diverticulosis of the colon. 5. Body wall edema. 6. Stable calcified lesion in the left kidney, most likely a complex cyst. Head CT 06/04/21 21:13 IMPRESSION: 1. Stable vasogenic edema in the left temporal lobe, consistent with patient's previous identified metastatic lesion. No new lesion identified. 2. Stable lytic lesions in the calvarium. Main considerations include metastatic disease and multiple myeloma. Chest X-Ray 06/06/21 07:00 IMPRESSION: 1. Right upper extremity central venous access device with tip in the low right atrium. 2. Persistent near total opacification of the right hemithorax compatible with known consolidation and effusion. There is minimal residual aerated lung on the right. The appearance is centrally unchanged. 3. Interstitial prominence in the left chest likely reflects emphysema. Laboratory Results WBC 51.4 10^3/uL (4.0-10.0) H* 06/04/21 21:15 RBC 4.33 10^6/uL (4.1-5.3) 06/04/21 21:15 Hgb 11.8 g/dL (11.5-15.3) 06/04/21 21:15 Hct 36.2 % (37.0-47.0) L 06/04/21 21:15 MCV 83.6 fl (81-99) 06/04/21 21:15 MCH 27.3 pg (28.0-34.0) L 06/04/21 21:15 MCHC 32.6 g/dL (30.0-36.0) 06/04/21 21:15 RDW 17.2 % (12.1-15.1) H 06/04/21 21:15 Plt Count 349 10^3/cmm (130-400) 06/04/21 21:15 MPV 10.5 fL (7.4-10.4) H 06/04/21 21:15 Lymph % (Auto) Not Reportable 06/04/21 21:15 [place] % (Auto) Not Reportable 06/04/21 21:15 Lymph # (Auto) Not Reportable 06/04/21 21:15 [place] # (Auto) Not Reportable 06/04/21 21:15 Total Counted 100 (0-100) 06/04/21 21:15 Atypical Lymphs % 0.0 % (0-5) 06/04/21 21:15 Absolute Neutrophils 49.9 10^3/cmm (1.4-6.5) H 06/04/21 21:15 Segmented Neutrophils 76 % 06/04/21 21:15 Abs Segm Neuts (Man) 39.1 10/cmm (1.6-7.1) H 06/04/21 21:15 Band Neutrophils 21.0 % 06/04/21 21:15 Abs Band Neuts (Man) 10.8 10^3/cmm (0.0-1.2) H 06/04/21 21:15 Absolute Lymphocytes 0.0 10^3/cmm (1.2-3.4) L 06/04/21 21:15 Lymphocytes (Manual) 0 % 06/04/21 21:15 Monocytes (Manual) 1.0 % 06/04/21 21:15 Absolute Monocytes 0.5 10^3/cmm (0.1-0.6) 06/04/21 21:15 Eosinophils (Manual) 0 % 06/04/21 21:15 Absolute Eosinophils 0.0 10^3/cmm (0.0-0.7) 06/04/21 21:15 Basophils (Manual) 0.0 % 06/04/21 21:15 Absolute Basophils 0.0 10^3/cmm (0.0-0.2) 06/04/21 21:15 Metamyelocytes 2.0 % 06/04/21 21:15 Platelet Estimate Normal (Normal) 06/04/21 21:15 Specimen Type Arterial 06/04/21 21:28 Sample Site Radial, left 06/04/21 21:28 ABG pH 7.45 (7.35-7.45) 06/04/21 21:28 ABG pCO2 35.5 mmHg (35-45) 06/04/21 21: ABG pO2 106.0 mmHg (80.0-100.0) H 06/04/21 21:28 ABG HCO3 24.5 mmol/L (22-26) 06/04/21 21:28 ABG Base Excess 0.8 mmol/L (-2.0-2.0) 06/04/21 21:28 Morris Test Pos 06/04/21 21:28 Hematocrit 36.3 % (37-47) L 06/04/21 21:28 O2 Delivery Device Nrb 06/04/21 21:28 O2 Liters/Min 15.0 % 06/04/21 21:28 Business Operations Director ID Buttr 06/04/21 21:28 Sodium 131 mmol/L (136-145) L 06/04/21 21:15 Potassium 5.6 mmol/L (3.5-5.1) H 06/04/21 21:15 Chloride 88 mmol/L (98-107) L 06/04/21 21:15 Carbon Dioxide 21 mmol/L (22-29) L 06/04/21 21:15 Anion Gap 27.6 (5-19) H 06/04/21 21:15 BUN 65 mg/dL (8-23) H 06/04/21 21:15 Creatinine 2.1 mg/dL (0.5-0.9) H 06/04/21 21:15 GFR Calculation 23.5 mL/min (90-130) L 06/04/21 21:15 Glucose 105 mg/dL (65-115) 06/04/21 21:15 POC Glucose 105 mg/dL (70-110) 06/04/21 21:32 Calculated Osmolality 291 mOsm/kg (285-295) 06/04/21 21:15 Calcium 8.6 mg/dL (8.5-10.5) 06/04/21 21:15 Total Bilirubin 0.7 mg/dL (0.15-1.2) 06/04/21 21:15 AST 53 U/L (0-32) H 06/04/21 21:15 ALT 50 U/L (0-33) H 06/04/21 21:15 Alkaline Phosphatase 213 IU/L (35-105) H 06/04/21 21:15 Troponin T Baseline 89 ng/L (0-10) H 06/04/21 21:15 Troponin T 120 Minute 59.71 ng/L (0-10) H 06/04/21 22:59 Delta Troponin T -29.29 ABS# (0-10) L 06/04/21 22:59 C-Reactive Protein 263.0 mg/L (0.0-4.9) H 06/04/21 21:15 NT-Pro-B Natriuret Pep 3977 pg/mL (0-125) H 06/04/21 21:15 Total Protein 4.3 g/dL (6.6-8.7) L 06/04/21 21:15 Albumin 2.6 g/dL (3.5-5.2) L 06/04/21 21:15 Globulin 1.7 g/dL (1.3-4.6) 06/04/21 21:15 Procalcitonin 2.29 ng/mL (0-0.5) H 06/04/21 21:15 TSH 4.10 uIU/mL (0.27-4.20) 06/04/21 21:15 Urine Color Dark yellow (Yellow) 06/04/21 22:24 Urine Appearance Hazy (CLEAR) A 06/04/21 22:24 Urine pH 5 (5-7) 06/04/21 22:24 Ur Specific [place] 1.020 (1.005-1.030) 06/04/21 22:24 Urine Protein Trace (Negative) 06/04/21 22:24 Urine Glucose (UA) Trace (Normal) H 06/04/21 22:24 Urine Ketones Negative (Negative) 06/04/21 22:24 Urine Blood Neg (Negative) 06/04/21 22:24 Urine Nitrate Negative (Negative) 06/04/21 22:24 Urine Bilirubin 2+ (Negative) H 06/04/21 22:24 Urine Urobilinogen 1 mg/dL (Negative) H 06/04/21 22:24 Ur Leukocyte Esterase 1+ (Negative) H 06/04/21 22:24 Urine RBC 5-10 /hpf (0-2) H 06/04/21 22:24 Urine WBC 40-55 /hpf (0-5) H 06/04/21 22:24 Ur Squamous Epith Cells 0-4 /hpf (0-5) H 06/04/21 22:24 Ur Renal Epithelial Cell 0-4 /hpf 06/04/21 22:24 Amorphous Sediment Not Reportable 06/04/21 22:24 Urine Bacteria Trace /hpf (NONE) 06/04/21 22:24 EKG Data EKG 2: I personally reviewed and interpreted this EKG as follows: EKG interpretation date: 07/02/21 EKG interpretation time: 23:30 Interpretation: Twelve-lead EKG shows a 85 rhythm at a rate of 85. UT interval 164. QRS duration 121. QTc 437. normal Wiseman. . Interpretation: sinus Rhythm. non specific st segment abnormalities. EKG 1: I personally reviewed and interpreted this EKG as follows: EKG interpretation date: 07/02/21 EKG interpretation time: 21:25 Interpretation: Twelve-lead EKG shows a sinus rhythm at a rate of 99. UT interval 158. QRS duration 108. QTc 391. normal Wiseman. . Interpretation: sinus Rhythm. nonspecific ST segment abnormalities. Critical Care Time Critical Care Time: Critical Care Time: Yes Total Critical Care Time: 45 Attestation: Due to a high probability of clinically significant, possibly life threatening deterioration, the patient required my highest level of attention and preparedness to intervene emergently and I personally spent this critical care time directly and personally managing the patient. This critical care time included obtaining a history; examining the patient; pulse oximetry; ordering and review of laboratory and imaging studies; arranging urgent treatment with development of a management plan; evaluation of patient's response to treatment; frequent reassessment; and, discussions with other providers as applicable. It was exclusive of separately billable procedures. Primary systems involved include cardiopulmonary, GI, immune Discharge Plan Discharge Patient Disposition: Admitted As Inpatient Admit Provider: Colin Gao Clinical Impression: Sepsis, Pneumonia, Colitis, TERESA (acute kidney injury), Acute UTI Condition: Serious Discharge Diet: Regular Discharge Activity: Resume usual activity Coding Level of Care Code ED Sheet Rock Taper for Chg Fwd 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
--- NOTE | 2021-06-04 21:13 | CTR_ITS ---
PROCEDURE INFORMATION: Exam: CTA Chest With Contrast Exam date and time: 06/04/2021 9:13 PM Age: 66 years old Clinical indication: Patient HX: Hypoxemia, lung cancer, AMS and abdominal pain; Additional info: Hypoxemia, lung CA, abd pain, AMS TECHNIQUE: Imaging protocol: Computed tomographic angiography of the chest with contrast. 3D rendering (Not supervised by radiologist): MIP and/or 3D reconstructed images were created by the technologist. Radiation optimization: All CT scans at this facility use at least one of these dose optimization techniques: automated exposure control; mA and/or kV adjustment per patient size (includes targeted exams where dose is matched to clinical indication); or iterative reconstruction. Contrast material: OMNI 350; Contrast volume: 95 ml; Contrast route: INTRAVENOUS (IV); COMPARISON: CT angio chest PE protcl [id number] 05/05/2021 4:24 PM RADIATION DOSE METRICS: Total DLP (mGy-cm): 1253.43 FINDINGS: Tubes, catheters and devices: Right PICC line with tip in the right atrium. Pulmonary arteries: Normal. No pulmonary emboli. Aorta: Unremarkable. No aortic aneurysm. No aortic dissection. Lungs: Stable hypodense mass in the suprahilar right upper lobe with extension into the right hilum. This measures approximately 5.9 cm in maximum dimension. There is hypodense consolidation within the central right middle and lower lobes which could represent neoplastic involvement. Stable collapse of the right middle and upper lobes. Airspace consolidation within the right lower lobe without significant volume loss. Severe emphysema in the left lung with interstitial scarring. The left lung is otherwise clear. Stable narrowing and obstruction of the right upper lobe bronchi and severe narrowing of the bronchus intermedius and right lower lobe bronchi. Pleural spaces: Stable large right pleural effusion. Mild right visceral and parietal pleural thickening with no nodularity visualized. Heart: Small pericardial effusion. The heart size is normal. Lymph nodes: Unremarkable. No enlarged lymph nodes. Bones/joints: Mild kyphosis and degenerative changes of the spine. No lytic lesion or fracture identified. Soft tissues: Unremarkable. PROCEDURE INFORMATION: Exam: CT Abdomen And Pelvis With Contrast Exam date and time: 06/04/2021 9:13 PM Age: 66 years old Clinical indication: Patient HX: Hypoxemia, lung cancer, AMS and abdominal pain; Additional info: Hypoxemia, lung CA, abd pain, AMS TECHNIQUE: Imaging protocol: Computed tomography of the abdomen and pelvis with contrast. Radiation optimization: All CT scans at this facility use at least one of these dose optimization techniques: automated exposure control; mA and/or kV adjustment per patient size (includes targeted exams where dose is matched to clinical indication); or iterative reconstruction. Contrast material: OMNI 350; Contrast volume: 95 ml; Contrast route: INTRAVENOUS (IV); COMPARISON: 1. CT angio chest PE protcl [id number] 05/05/2021 4:[address] angio chest w abd pel w con 04/17/2020 9:28 PM RADIATION DOSE METRICS: Total DLP (mGy-cm): 1253.43 FINDINGS: Liver: Normal. No mass. Gallbladder and bile ducts: Cholecystectomy. Dilatation of the bile ducts is consistent with chronic reservoir effect. No filling defect identified. Pancreas: Normal. No ductal dilation. Spleen: Normal. No splenomegaly. Adrenal glands: Normal. No mass. Kidneys and ureters: Stable 2.6 cm peripherally calcified lesion in the left kidney. 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 Stable hypodense lesions in both kidneys which are too small to characterize but are most likely cysts. No hydronephrosis. Stomach and bowel: Mild mucosal enhancement throughout the colon. Mild wall thickening within the sigmoid colon and rectum. The rectum and distal colon are distended with fluid and stool. The stomach and small bowel are unremarkable. No wall thickening or obstruction. Diverticulosis of the colon. Appendix: The appendix is visualized and is normal. Intraperitoneal space: Mild ascites. No free peritoneal air. Vasculature: Arterial calcifications. No aneurysm. Lymph nodes: Unremarkable. No enlarged lymph nodes. Urinary bladder: Unremarkable as visualized. Reproductive: Uterine fibroids with calcifications. The ovaries are unremarkable. Bones/joints: 1.5 cm lytic lesion in the left iliac bone, unchanged. No new lesion or fracture identified. Soft tissues: Diffuse body wall edema. CT/CT angio chest w abd pel w con IMPRESSION: 1. No evidence for pulmonary embolus. 2. Stable malignant mass in the suprahilar right upper lobe with extension to the hilum and probable extension into the central right middle and lower lobes. 3. Stable narrowing of multiple right bronchi. 4. Stable atelectasis and collapse of the right upper and middle lobes. 5. Consolidation without volume loss in the right lower lobe likely represents a combination of pneumonia and possible neoplasm. 6. Stable large right pleural effusion with pleural thickening. A malignant effusion is not excluded. IMPRESSION: 1. Mild wall thickening and mucosal enhancement in the colon and rectum could represent infectious or inflammatory colitis. 2. Stable lytic lesion in the left iliac bone, possibly metastatic disease. 3. Mild ascites. 4. Diverticulosis of the colon. 5. Body wall edema. 6. Stable calcified lesion in the left kidney, most likely a complex cyst.
--- NOTE | 2021-06-04 21:13 | XRR_ITS ---
PROCEDURE INFORMATION: Exam: XR Chest Exam date and time: 06/04/2021 9:13 PM Age: 66 years old Clinical indication: Shortness of breath; Prior surgery; Surgery date: 6+ months; Additional info: SOB TECHNIQUE: Imaging protocol: XR of the chest. Views: 1 view. COMPARISON: CR XR chest 1V portable [id number] 05/27/2021 9:59 AM FINDINGS: Tubes, catheters and devices: Stable inferior right chest tube. Stable right PICC line with tip over the right atrium. Lungs: Atelectasis and volume loss in the right lung with a small amount of aerated right upper lobe. The left lung is clear. Pleural spaces: Slightly increased large right pleural effusion. Heart/Mediastinum: Rightward shift of the heart and mediastinum. Bones/joints: Unremarkable. XR/XR chest 1V portable [id number] IMPRESSION: 1. Slightly increased large right pleural effusion. 2. Stable volume loss in the right lung with rightward shift of the heart and mediastinum.
--- NOTE | 2021-06-04 21:13 | CTR_ITS ---
PROCEDURE INFORMATION: Exam: CT Head Without Contrast Exam date and time: 06/04/2021 9:13 PM Age: 66 years old Clinical indication: Altered mental status/memory loss; Patient HX: AMS. HX of lung cancer TECHNIQUE: Imaging protocol: Computed tomography of the head without contrast. Radiation optimization: All CT scans at this facility use at least one of these dose optimization techniques: automated exposure control; mA and/or kV adjustment per patient size (includes targeted exams where dose is matched to clinical indication); or iterative reconstruction. COMPARISON: 1. MR head wo/w con [id number] 01/10/2021 4:[address] head wo con* [id number] 01/09/2021 10:29 PM RADIATION DOSE METRICS: Total DLP (mGy-cm): 809.67 FINDINGS: Brain: Mild diffuse cortical volume loss. Stable vasogenic edema in the left temporal lobe in the region of the previously identified metastatic lesion. Mild hypodensities in supratentorial periventricular and subcortical white matter, consistent with microangiopathy. No intracranial hemorrhage. Cerebral ventricles: No ventriculomegaly. Paranasal sinuses: Visualized sinuses are unremarkable. No fluid levels. Mastoid air cells: Visualized mastoid air cells are well aerated. Vasculature: No hyperdense artery. Bones/joints: Numerous lytic lesions in the calvarium, unchanged from the prior CT. Soft tissues: Unremarkable. CT/CT head wo con* [id number] IMPRESSION: 1. Stable vasogenic edema in the left temporal lobe, consistent with patient's previous identified metastatic lesion. No new lesion identified. 2. Stable lytic lesions in the calvarium. Main considerations include metastatic disease and multiple myeloma.
--- NOTE | 2021-06-04 21:15 | ECG_ITS ---
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 Measurements Intervals [place] Rate: 99 P: 45 GA: 158 QRS: 60 QRSD: 108 T: 86 QT: 335 QTc: 431 Interpretive Statements SINUS RHYTHM POSSIBLE LEFT ATRIAL ENLARGEMENT [-0.1mV P-WAVE IN V1/V2] MODERATE T-WAVE ABNORMALITY, CONSIDER LATERAL ISCHEMIA [-0.1+ mV T-WAVE IN I/aVL/V5/V6] MODERATE T-WAVE ABNORMALITY, CONSIDER INFERIOR ISCHEMIA [-0.1+ mV T-WAVE IN II/aVF] Compared to ECG 05/25/2021 10:16:10 T-wave abnormality now present Possible ischemia now present Intraventricular conduction delay no longer present Electronically Signed On 06-05-2021 12:27:02 MISSION WORKER by Taz Rebolledo M.D. [id number]
[2021-06-04] MEDS: lactated ringers 500 ML 999 ML IV ×2 (21:33→22:36)
[2021-06-04 21:36] LABS: Hematocrit 36.2 % (37.0-47.0); Hemoglobin 11.8 g/dL (11.5-15.3); Mean Corpuscular HGB Conc 32.6 g/dL (30.0-36.0); Mean Corpuscular Hemoglobin 27.3 pg (28.0-34.0); Mean Corpuscular Volume 83.6 fl (81-99); Mean Platelet Volume 10.5 fL (7.4-10.4); Platelet Count 349 10^3/cmm (130-400); Red Blood Count 4.33 10^6/uL (4.1-5.3); Red Cell Distribution Width 17.2 % (12.1-15.1)
[2021-06-04 21:36] LABS: Glucose Point of Care 105 mg/dL (70-110)
[2021-06-04 21:40] LABS: ABG PCO2 35.5 mmHg (35-45); ABG PH Result 7.45 (7.35-7.45); Arterial Blood Gas Hematocrit 36.3 % (37-47); Base Excess ABG 0.8 mmol/L (-2.0-2.0); Blood Gas Allen Test Pos; Blood Gas Sample Site Radial, left; Blood Gas Sample Type Arterial; HCO3 ABG 24.5 mmol/L (22-26); Oxygen Device NRB
[2021-06-04 21:45] LABS: Slide Review Slide Review Perform
[2021-06-04 21:47] LABS: Absolute Neutrophil 49.9 10^3/cmm (1.4-6.5); Absolute Segmented Neutrophil 39.1 10/cmm (1.6-7.1); Band Neutrophils Absolute 10.8 10^3/cmm (0.0-1.2); Eosinophils 0 %; Lymphocytes 0 %; Monocytes Absolute 0.5 10^3/cmm (0.1-0.6); Platelet Estimate Normal (Normal); Segmented Neutrophils 76 %; Total Cells Counted 100 (0-100); White Blood Count 51.4 10^3/uL (4.0-10.0)
[2021-06-04 21:54] LABS: Troponin(5th) Baseline 89 ng/L (0-10)
--- NOTE | 2021-06-04 21:58 | PC.NURSE ---
patient transported to CT via stretcher.
[2021-06-04 22:04] LABS: NT Pro B Type Natriuretic Pept 3977 pg/mL (0-125); Procalcitonin 2.29 ng/mL (0-0.5)
[2021-06-04] MEDS: iohexol 350 mg/mL 100 mL Btl IV (22:07)
[2021-06-04 22:16] LABS: Albumin Level 2.6 g/dL (3.5-5.2); Alkaline Phosphatase 213 IU/L (35-105); Blood Urea Nitrogen 65 mg/dL (8-23); Calcium 8.6 mg/dL (8.5-10.5); Carbon Dioxide 21 mmol/L (22-29); Chloride 88 mmol/L (98-107); Globulin 1.7 g/dL (1.3-4.6); Glomerular Filtration Rate 23.5 mL/min (90-130); Glucose 105 mg/dL (65-115); Osmolality Calculated 291 mOsm/kg (285-295); Sodium 131 mmol/L (136-145); Total Bilirubin 0.7 mg/dL (0.15-1.2); Total Protein 4.3 g/dL (6.6-8.7)
[2021-06-04] MEDS: vancomycin 1,500 MG/300 ML PIGGYBACK 200 MG IV (22:16)
[2021-06-04] MEDS: piperacillin-tazobactam 4.5 GM in sodium chloride 0.9% (plus) 50 ML IV (22:16)
[2021-06-04 22:17] LABS: Alanine Aminotransferase 50 U/L (0-33); Anion Gap 27.6 (5-19); Aspartate Amino Transferase 53 U/L (0-32); Potassium 5.6 mmol/L (3.5-5.1)
[2021-06-04 22:27] VITALS: BP 87/54; PULSE 88; RESP 16; O2SAT 100
[2021-06-04 22:46] LABS: Add Urine Microscopic? YES; Bilirubin Urine 2+ (Negative); Blood Urine Neg (Negative); Glucose Urine UA Trace (Normal); Ketones Urine Negative (Negative); Leukocyte Esterase Urine 1+ (Negative); Nitrate Urine Negative (Negative); Protein Urine Trace (Negative); Urine Appearance Hazy (CLEAR); Urine Color Dark Yellow (Yellow); Urobilinogen Urine 1 mg/dL (Negative); pH Urine 5 (5-7)
[2021-06-04 22:47] LABS: Bacteria Urine TRACE /hpf; Renal Epithelial Cells Urine 0-4 /hpf; Squamous Epithelial Cell Urine 0-4 /hpf (0-5); WBC Urine 40-55 /hpf (0-5)
[2021-06-04 22:48] LABS: Add Urine Culture? Yes
[2021-06-04 22:50] VITALS: BP 84/49; PULSE 86; RESP 14; O2SAT 10
--- NOTE | 2021-06-04 23:15 | ECG_ITS ---
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 Measurements Intervals [place] Rate: 85 P: 58 NE: 164 QRS: 75 QRSD: 121 T: 50 QT: 395 QTc: 471 Interpretive Statements SINUS RHYTHM MODERATE INTRAVENTRICULAR CONDUCTION DELAY [110+ ms QRS DURATION] MODERATE T-WAVE ABNORMALITY, CONSIDER LATERAL ISCHEMIA [-0.1+ mV T-WAVE IN I/aVL/V5/V6] MODERATE T-WAVE ABNORMALITY, CONSIDER INFERIOR ISCHEMIA [-0.1+ mV T-WAVE IN II/aVF] Compared to ECG 06/04/2021 21:21:14 Intraventricular conduction delay now present T-wave abnormality still present Possible ischemia still present Electronically Signed On 06-05-2021 12:30:36 EFFICIENCY ANALYST by Taz Rebolledo M.D. [id number]
[2021-06-04 23:25] LABS: Troponin 5 2HR 59.71 ng/L (0-10)
[2021-06-04 23:32] VITALS: BP 98/49; PULSE 84; RESP 18; O2SAT 100
--- NOTE | 2021-06-04 23:48 | PC.NURSE ---
patient given some ICE water per providers. patient in no obviosu distress. patinet on top spotter. Side rails raised x 2 and bed in low, locked position. call light within reach
[2021-06-05] VITALS (48 sets, daily range): BP systolic 70–128; BP diastolic 41–77; PULSE 70–89; RESP 10–20; TEMP 35.8–36.7; O2SAT 15–100
[2021-06-05 00:08] LABS: LAB Peripheral Smear Sent for Review
--- NOTE | 2021-06-05 00:32 | PC.NURSE ---
no crackles noted upon auscultation of lung sounds. patient on cardiac cath technician. patient in no obivous distress.
[2021-06-05] MEDS: lactated ringers 500 ML 999 ML IV (00:34)
[2021-06-05 01:44] LABS: Lactic Sepsis W/Reflex 0.7 mmol/L (0.5-2.2)
[2021-06-05] MEDS: norepinephrine 8 MG in dextrose 5 % 500 ML 11.43 MG IV (02:44)
--- NOTE | 2021-06-05 03:09 | PM.HP ---
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 Patient was confused with no family at bedside. ER staff report stated patient was brought in to ER after she was noted to have oxygen saturation in 80s, produfctive cough, and systolic blood pressure in low 70s. Laboratory workup on arrival today showed a WBC of 51.4, hemoglobin 11.8, hematocrit. 36.2 and platelet count of 349. Sodium 131, potassium 5.6, chloride 88, bicarb 21, BUN 65 and creatinine of 2.1. Lactic acid of 0.7. AST of 53, ALT of 50 and alkaline phosphatase of 213. Troponin T baseline of 89, repeat at 2hr of 59.71. CRP of 263. ProBNP of 3977. Procalcitonin of 2.29. UA showed 1+ leukocyte esterase, 40-55 WBCs. Imaging studies included a CTA of chest abdomen pelvis which showed consolidation without volume loss of the right lower lobe likely representing combination of pneumonia and possible neoplasm, stable large right pleural effusion and pleural thickening, stable malignant mass in the suprahilar right upper lobe with extension to hilum and possibly extension into the right middle and lower lobes. Addition was found to have mild colonic wall thickening and mucosal enhancement in the colon and rectum representing possible infectious colitis vs inflammatory colitis, mild ascites, also stable lytic lesion in the left iliac bone suggestive of metastatic disease. Patient was started on vancomycin and zosyn renally dosed. Medina catherter was placed. She was given 500ml LR bolus x 3 and started on Levophed via RUE PICC line. Review of Systems Narrative: Unable to fully assess due to mental status. Medications/Allergies Home Medications Medication Instructions Recorded Confirmed Last Taken Type albuterol sulfate 90 mcg/actuation 2 puff INHALATION QID PRN 02/07/20 05/25/21 04/17/21 History aerosol inhaler (ProAir HFA) amiodarone 200 mg tablet 200 mg PO BID 06/07/20 05/25/21 05/24/21 History rivaroxaban 15 mg tablet (Xarelto) 15 mg PO DAILY 12/08/20 05/25/21 03/29/21 History ipratropium 0.5 mg-albuterol 3 mg 3 ml INHALATION TID PRN 30 Days 03/19/21 05/25/21 04/17/21 Rx (2.5 mg base)/3 mL nebulization #360 ml soln dexamethasone 4 mg tablet 2 mg PO BID 03/30/21 05/25/21 05/05/21 History trazodone 50 mg tablet 50 mg PO BEDTIME PRN 04/17/21 05/25/21 Unknown History oxycodone 10 mg tablet 10 mg PO Q4H PRN 05/05/21 05/25/21 05/25/21 History aspirin 81 mg tablet,delayed 81 mg PO DAILY 30 Days #30 tab 05/09/21 05/25/21 05/24/21 Rx release ferrous gluconate 324 mg (37.5 mg 324 mg PO BIDWM 30 Days #60 tab 05/09/21 05/25/21 05/24/21 Rx iron) tablet pantoprazole 40 mg tablet,delayed 40 mg PO DAILY 30 Days #30 tab 05/09/21 05/25/21 05/24/21 Rx release potassium chloride 20 mEq 20 meq PO DAILY 30 Days #30 tab 05/09/21 05/25/21 05/24/21 Rx tablet,extended release(part/cryst) (Klor-Con M) amoxicillin 400 mg-potassium 11 ml PO BID 05/25/21 05/25/21 Unknown History clavulanate 57 mg/5 mL oral suspension fluconazole 100 mg tablet 100 mg PO DAILY 10 Days #10 tab 05/27/21 Unknown Rx furosemide 20 mg tablet (Lasix) 20 mg PO DAILY #60 tab 05/27/21 Unknown Rx clonazepam 0.5 mg tablet 0.5 mg PO TID PRN #90 tab 05/28/21 Unknown Rx Allergies Allergy/AdvReac Type Severity Reaction Status Date / Time morphine Allergy Unknown ALGY-Rash Verified 05/26/21 20:10 PFSH Acute PFSH: Medical History Acute kidney injury Anemia Anxiety Brain metastasis s/p whole brain radiation ending 03/23/2021 Chronic anticoagulation xarelto, due to history of pulmonary vein thrombosis and SVC syndrome, intermittent atrial fibrillation COPD (chronic obstructive pulmonary disease) Cystitis H/O steroid therapy on due to brain metastases presently History of cervical cancer History of left heart catheterization (05/07/21) no significant coronary artery disease Hyponatremia Intermittent atrial fibrillation afib/flutter Migraines On home oxygen therapy 4L Osteoarthritis of left knee Panic disorder [episodic paroxysmal anxiety] Pulmonary venous thrombosis (~04/2020) Recurrent pleural effusion on right malignant Stage IV adenocarcinoma of lung Stage IVB (M1c), s/p chemo (carboplatin/paclitaxel finished end 2019) and radiation (completed 04/29/2020), immunotherapy offered Was stage IIIB (T4,N2,M0) at presentation 01/2020 Superior vena cava thrombosis Takotsubo cardiomyopathy EF 40% 05/07/2021 Thrombosis of superior vena cava Surgical History Hx of cholecystectomy Other postprocedural status pleurx catheter placed by Dr Meadows 01/07/2021, 04/01/2021 S/P bronchoscopy 02/08/2020, 12/12/2020 Status post PICC central line placement Family History Other CAD (coronary artery disease) Cancer Dementia Hypertension Lung disease Stroke Denies family history of Diabetes Hyperlipidemia Chronic kidney disease (CKD) Family history of premature coronary artery disease Social History Quit status (tobacco): has quit using tobacco Year quit tobacco: 2020 Alcohol intake: current Alcohol intake frequency: few times a month Alcohol type: beer Household members: family Marital status: Current occupational status: retired 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, 2 steps in back with no handrails, advise Current gender identity: Female Vitals/I&O/Wt Last Vital Signs Temp 96.4 F L 06/05/21 01:47 Pulse 84 06/05/21 01:47 Resp 16 06/05/21 01:47 BP 87/51 06/05/21 01:47 Pulse Ox 100 06/05/21 01:47 06/04/21 06/04/21 06/05/21 14:59 22:59 06:59 Intake Total 500 / 500 850 / 1350 Balance 500 / 500 850 / 1350 Weight last 48 hrs Weight 56.699 kg Physical Exam Narrative: Chronically ill-appearing, cachectic adult female HEENT- grossly unremarkable CVS- regular rate rhythm, no obvious murmurs Chest- decreased breath sounds bilaterally Abdomen- tender to touch throughout Extremities- no edema Data : 06/04/21 21:15 06/04/21 21:15 Micro: Microbiology 06/04/21 22:59 Blood Culture - Preliminary Blood SPECIMEN COLLECTED 06/04/21 21:15 Blood Culture - Preliminary Blood SPECIMEN COLLECTED CT Head: Radiologist's impression: 1. Stable vasogenic edema in the left temporal lobe, consistent with patient's previous identified metastatic lesion.? No new lesion identified. 2. Stable lytic lesions in the calvarium.? Main considerations include metastatic disease and multiple myeloma. ? CTA Chest: Radiologist's impression: IMPRESSION: 1. No evidence for pulmonary embolus. 2. Stable malignant mass in the suprahilar right upper lobe with extension to the hilum and probable extension into the central right middle and lower lobes. 3. Stable narrowing of multiple right bronchi. 4. Stable atelectasis and collapse of the right upper and middle lobes. 5. Consolidation without volume loss in the right lower lobe likely represents a combination of pneumonia and possible neoplasm. 6. Stable large right pleural effusion with pleural thickening.? A malignant effusion is not excluded.? CT Abd/Pel: Radiologist's impression: IMPRESSION: 1. Mild wall thickening and mucosal enhancement in the colon and rectum could represent infectious or inflammatory colitis. 2. Stable lytic lesion in the left iliac bone, possibly metastatic disease. 3. Mild ascites. 4. Diverticulosis of the colon. 5. Body wall edema. 6. Stable calcified lesion in the left kidney, most likely a complex cyst.? ? A&P Assessment and plan (1) TERESA (acute kidney injury): Status: Acute (2) Sepsis associated hypotension: Status: Acute (3) Acute on chronic respiratory failure with hypoxemia: Status: Acute (4) Paroxysmal A-fib: Status: Acute Plan Sepsis with hypotension due to UTI vs possible pneumonia vs possible intra-abdominal infection Recent UTI - yeast tx with antifungal plus empirically on rocephin WBC 54 - infectious with steroids Blood culture x 2 Sputum gram stain and culture Pro-calcitonin elevated Vancomycin and zosyn pharmacy to renal dose De-escalate abx based on clinical course and culture Continue pressor support with levophed via PICC line Maintain MAP > 65 Continue steroids Acute on chronic hypoxemic respiratory failure due to lung ca plus large malignant pleural effusion possible pneumonia On 3-4L baseline Stable effusion s/p pleurex cath Abx as above Supplemental o2 as needed Can attempt to drain in am Continue neb Continue steroid Acute renal failure / hyperkalemia Repeat K If elevated will order Kayexalate 15g PO x 1 Creatinine increased to 2.1 Consider nephrology consult in am Repeat BMP in am Renal dosing Medina in place Likely pre-renal Abdominal Pain possible colitis Abx as above Chronic obstructive pulmonary disease Management as noted above Duoneb q6hr Supplemental oxygen as needed CTA Chest noted above. Metastatic stage IV lung cancer with brain and bone mets CT head - brain mass with vasogenic edema Decadron increased to 4 mg IV q6hr Will need cautious use given underlying sepsis Paroxysmal Atrial fibrillation Will change to eliquis given renal failure Stable rate. GI ppx Protonix 40 mg IV daily DVT ppx Anticoagulation as noted above Prognosis: Guarded Attestations Medical Necessity Statement*: Will require > 2 midnight stay in hospital for eval and treatment Critical Care Time: 55 Coding Level of Care Code Acute Manager Department for [facility] Diagnoses TERESA (acute kidney injury) N17.9 Sepsis associated hypotension A41.9; I95.9 Acute on chronic respiratory failure with hypoxemia J96.21 Paroxysmal A-fib I48.0
--- NOTE | 2021-06-05 03:15 | ECG_ITS ---
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 Measurements Intervals [place] Rate: 86 P: 48 MI: 163 QRS: 76 QRSD: 113 T: 79 QT: 348 QTc: 418 Interpretive Statements SINUS RHYTHM IVCD Nonspecific ST and T wave changes diffusely T wave abnormalities most prominently laterally and inferiorly. ABNORMAL RHYTHM ECG Compared to ECG 06/04/2021 23:25:54 There is no change Electronically Signed On 06-05-2021 12:32:46 V BELT INSPECTOR by Taz Rebolledo M.D. https://[email or web address] Communicationswalthall county general hospitalLettuce Eatadams county regional [facility].Daylife/store/OM/[id number]
[2021-06-05] MEDS: oxyCODONE 5 mg IR Tab/Cap PO (03:31)
[2021-06-05] MEDS: dexamethasone 4 mg/mL INJ IVP ×4 (03:31→21:40)
[2021-06-05 04:00] LABS: Basophils % 0.1 %; Hematocrit 31.8 % (37.0-47.0); Hemoglobin 10.5 g/dL (11.5-15.3); Lymphocytes # 0.5 10^3/uL (0.8-4.8); Lymphocytes % 0.9 %; Mean Corpuscular Hemoglobin 27.3 pg (28.0-34.0); Mean Corpuscular Volume 82.8 fl (81-99); Mean Platelet Volume 10.7 fL (7.4-10.4); Monocytes # 1.6 10^3/uL (0.2-0.9); Monocytes % 3.3 %; Neutrophils # 44.86 10^3/uL (1.8-7.7); Neutrophils % 92.2 %; Nucleated Red Blood Cells % 0 %; Platelet Count 313 10^3/cmm (130-400); Red Blood Count 3.84 10^6/uL (4.1-5.3); Red Cell Distribution Width 17.3 % (12.1-15.1)
[2021-06-05 04:17] LABS: Troponin 5 6HR 65.69 ng/L (0-10)
[2021-06-05 04:19] LABS: Troponin 5 6HR Delta -23.31 ng/L (0-12)
[2021-06-05 04:24] LABS: Alanine Aminotransferase 40 U/L (0-33); Alkaline Phosphatase 180 IU/L (35-105); Anion Gap 22.6 (5-19); Aspartate Amino Transferase 42 U/L (0-32); Blood Urea Nitrogen 62 mg/dL (8-23); Carbon Dioxide 22 mmol/L (22-29); Chloride 89 mmol/L (98-107); Globulin 2.3 g/dL (1.3-4.6); Glucose 184 mg/dL (65-115); Magnesium 1.8 mg/dL (1.7-2.3); Osmolality Calculated 290 mOsm/kg (285-295); Potassium 4.6 mmol/L (3.5-5.1); Sodium 129 mmol/L (136-145); Total Bilirubin 0.6 mg/dL (0.15-1.2); Total Protein 4.3 g/dL (6.6-8.7)
[2021-06-05 04:36] LABS: Slide Review Slide Review Perform
[2021-06-05 04:39] LABS: White Blood Count 48.7 10^3/uL (4.0-10.0)
[2021-06-05] MEDS: piperacillin-tazobactam 3.375 GM in sodium chloride 0.9% (plus) 50 ML IV ×3 (06:17→21:16)
[2021-06-05] MEDS: pantoprazole 40 mg SDV IVP ×2 (06:17→15:23)
[2021-06-05 08:13] LABS: Glucose Point of Care 119 mg/dL (70-110)
[2021-06-05] MEDS: ipratropium-albuterol 3 mL Neb INHALATION ×3 (08:31→21:22)
[2021-06-05] MEDS: apixaban 5 mg Tablet PO ×2 (09:36→21:41)
--- NOTE | 2021-06-05 10:14 | PC.CHAP ---
Pastoral Care Encounter/Spiritual Assessment Type of Contact [] Declined virtual reality specialist visit [] Patient/Family/Request visit [] Outpatient visit [] Follow-up visit [] Physician referral [] Code/Alert [x] Routine visit [] Staff referral [] Actively dying [x] Patient sleeping [] Family support [] [] Out of room [] Palliative care [] [] Receiving care in room [] Pre-surgical visit [] Trauma [] Long length of stay [x] ICU visit [] Other: Relational/Emotional Strength [] Patient feels connected with others/family/visitors/staff [] Distress [] Loneliness/isolation [] Abandonment Spirituality of Patient [] Person of Radha [] Attends Confucianism of their Radha [] Believes in Prayer [] Reads Bible or Advent materials [] There are Spiritual issues to be addressed Vault Teller Interventions [x] Prayer [] Active listening [] Non-anxious presence [] Spiritual/emotional support [] Crisis/trauma care [] Spiritual counseling [] Bereavement support [] Provided bereavement packet [] Provided Bible/devotional materials [] Provided toy/stuffed animal, coloring book to patient or family member [] Provided Communion [] Anointing/[place] [] Salvation [x] Completed spiritual assessment [] Other: Impact on Illness or Injury [] Angry [] Fearful [] Anxious [] Often cries [] Exhaustion [] Unable to work [] Unable to attend muslim [] Unable to walk/stand [] Unable to read [] Unable to drive [] Unable to eat/drink [] Unable to sleep [] Unable to be with family [] Patient intubated [] Other: Summary Time spent with patient
--- NOTE | 2021-06-05 10:18 | PC.PHAR ---
PT UNABLE TO VERIFY- LOSARTAN WAS DISC. BY DR MENDES ON 05/22/21- CARVEDILOL DISC. PER DISCHARGE ORDERS ON 05/27/21.
--- NOTE | 2021-06-05 12:20 | PM.PN ---
Subjective Subjective: Patient was seen this morning, she is alert to person, not to place, not to time, she does follow commands such as squeezing my fingers, but cannot answer questions straightforwardly, often spaces out, no seizure-like episodes no facial droop, no slurring of her words, she remains on 3 of Levophed, MAP greater than 65, on 4 L, afebrile, having a couple of hypothermic episodes overnight Vitals/I&O/Wt Last Vital Signs Temp 97.9 F 06/05/21 06:00 Pulse 88 06/05/21 10:00 Resp 16 06/05/21 10:00 BP 93/57 06/05/21 10:00 Pulse Ox 93 06/05/21 10:00 06/04/21 06/05/21 06/05/21 22:59 06:59 14:59 Intake Total 500 / 500 950 / 1450 Output Total 175 / 175 Balance 500 / 500 775 / 1275 Weight last 48 hrs Weight 56.699 kg Weight 56.699 kg Physical Exam Const: COMMON NORMALS: no acute distress EXAM LIMITATIONS: altered mental status GENERAL APPEARANCE: cooperative, ill appearing and frail appearing ORIENTATION/CONSCIOUSNESS: Yes awake and Yes oriented to person; not oriented to place and not oriented to time Resp: COMMON NORMALS: normal respiratory effort, No retractions and No use of accessory muscles AUSCULTATION: crackles and wheezes Cardio: COMMON NORMALS: regular rate, regular rhythm, S1 normal heart sound present and S2 normal heart sound present RATE: regular rate RHYTHM: regular rhythm HEART SOUNDS: S1 normal heart sound present and S2 normal heart sound present GI: COMMON NORMALS: Normal to inspection, nondistended, normoactive bowel sounds present, Soft to palpation and non-tender PALPATION: Yes Soft to palpation Extremity: COMMON NORMALS: no pedal edema Neuro: SENSORIUM/ORIENTATION: Yes oriented to person, No oriented to place and No oriented to time Data : 06/05/21 03:30 06/05/21 03:30 Micro: Microbiology 06/04/21 22:59 Blood Culture - Preliminary Blood SPECIMEN COLLECTED 06/04/21 21:15 Blood Culture - Preliminary Blood SPECIMEN COLLECTED A&P Assessment and plan (1) TERESA (acute kidney injury): Status: Acute (2) Sepsis associated hypotension: Status: Acute (3) Acute on chronic respiratory failure with hypoxemia: Status: Acute (4) Paroxysmal A-fib: Status: Acute (5) Acute encephalopathy: Status: Acute Plan Sepsis with hypotension due postobstructive/aspiration pneumonia -Other sources of sepsis include UTI, colitis -Postobstructive pneumonia, secondary malignancy, currently not a candidate for bronchoscopy due to high risk of intubation -PICC line does not look like a source of infection so far Pleurx catheter does not look like a source of infection so far Recent UTI - yeast tx with antifungal plus empirically on rocephin WBC 54 - infectious with steroids Blood culture x 2 Sputum gram stain and culture Pro-calcitonin elevated Vancomycin and zosyn pharmacy to renal dose De-escalate abx based on clinical course and culture Continue pressor support with levophed via PICC line, de-escalate as per protocol Maintain MAP > 65 Continue steroids Acute encephalopathy -Secondary to sepsis -Pneumonia -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 Acute on chronic hypoxemic respiratory failure due to lung ca plus large malignant pleural effusion possible pneumonia On 3-4L baseline Stable effusion s/p pleurex cath, will drain right pleural effusion, sent out for cytology and testing Abx as above Supplemental o2 as needed Can attempt to drain in am Continue neb Continue steroid Acute renal failure / hyperkalemia -Likely secondary to underlying sepsis Repeat K 4.6 Creatinine 1.7 Renal dosing [place] in place Abdominal Pain possible colitis Abx as above Chronic obstructive pulmonary disease Management as noted above Duoneb q6hr Supplemental oxygen as needed CTA Chest noted above. Metastatic stage IV lung cancer with brain and bone mets CT head - brain mass with vasogenic edema Decadron increased to 4 mg IV q6hr Will need cautious use given underlying sepsis Paroxysmal Atrial fibrillation Will change to eliquis given renal failure Stable rate. GI ppx Protonix 40 mg IV daily DVT ppx Anticoagulation as noted above Prognosis: Poor, status stable Attestations Medical Necessity Statement*: Patient requires hospitalization for sepsis, acute encephalopathy, postobstructive pneumonia Time Spent in Patient Care: 55 minutes Coding Level of Care Code Acute Records Management Specialist for Barbara Cruz Diagnoses TERESA (acute kidney injury) N17.9 Sepsis associated hypotension A41.9; I95.9 Acute on chronic respiratory failure with hypoxemia J96.21 Paroxysmal A-fib I48.0 Acute encephalopathy G93.40
[2021-06-05 12:23] LABS: Glucose Point of Care 107 mg/dL (70-110)
[2021-06-05] MEDS: midodrine 5 mg TABLET 10 MG PO ×2 (15:23→21:30)
[2021-06-05 16:58] LABS: Apprearance, Body Fluid CLOUDY; Color, Body Fluid YELLOW
[2021-06-05 17:01] LABS: Body Fluid WBC 36 /uL; Monocytes # Body Fluid 0.026
[2021-06-05 17:26] LABS: Creatinine Body Fluid 1.68 (0.5-0.9); Total Protein Pleural Fluid 1.5 g/dL; Triglycerides, Pleural Fluid 15 mg/dL
[2021-06-05 17:27] LABS: LDH Pleural Fluid 262 U/L
[2021-06-05 18:05] LABS: Glucose Point of Care 117 mg/dL (70-110)
[2021-06-05] MEDS: amiodarone 200 mg Tablet PO (19:10)
[2021-06-05] MEDS: oxyCODONE 5 mg IR Tab/Cap 10 MG PO (21:30)
[2021-06-05] MEDS: CLONazepam 0.5 mg Tablet PO (21:40)
[2021-06-06] VITALS (49 sets, daily range): BP systolic 70–143; BP diastolic 46–77; PULSE 61–80; RESP 8–24; TEMP 36.2–36.9; O2SAT 93–99; BMI 22.3
[2021-06-06] MEDS: ipratropium-albuterol 3 mL Neb INHALATION ×4 (02:16→22:15)
[2021-06-06] MEDS: midodrine 5 mg TABLET 10 MG PO ×2 (03:45→12:28)
[2021-06-06] MEDS: pantoprazole 40 mg SDV IVP ×2 (03:45→15:27)
[2021-06-06] MEDS: dexamethasone 4 mg/mL INJ IVP ×4 (03:46→21:08)
[2021-06-06 05:06] LABS: Basophils % 0.1 %; Eosinophils % 0.1 %; Hemoglobin 10.2 g/dL (11.5-15.3); Lymphocytes # 0.3 10^3/uL (0.8-4.8); Lymphocytes % 0.7 %; Mean Corpuscular HGB Conc 32.9 g/dL (30.0-36.0); Mean Corpuscular Hemoglobin 27.1 pg (28.0-34.0); Mean Corpuscular Volume 82.2 fl (81-99); Mean Platelet Volume 10.7 fL (7.4-10.4); Monocytes # 1.3 10^3/uL (0.2-0.9); Monocytes % 2.6 %; Neutrophils # 43.82 10^3/uL (1.8-7.7); Nucleated Red Blood Cells % 0 %; Platelet Count 344 10^3/cmm (130-400); Red Blood Count 3.77 10^6/uL (4.1-5.3); Red Cell Distribution Width 17.4 % (12.1-15.1)
[2021-06-06 05:11] LABS: INR 1.76 (0.8-1.2)
[2021-06-06 05:16] LABS: Lactate (Lactic Acid level) 0.9 mmol/L (0.5-2.2)
[2021-06-06 05:28] LABS: NT Pro B Type Natriuretic Pept 4150 pg/mL (0-125); Procalcitonin 1.56 ng/mL (0-0.5)
[2021-06-06 05:36] LABS: Slide Review Slide Review Perform
[2021-06-06 05:38] LABS: White Blood Count 47.6 10^3/uL (4.0-10.0)
[2021-06-06 05:39] LABS: Alanine Aminotransferase 32 U/L (0-33); Alkaline Phosphatase 156 IU/L (35-105); Anion Gap 26.2 (5-19); Aspartate Amino Transferase 35 U/L (0-32); C Reactive Protein 123.6 mg/L (0.0-4.9); Calcium 8.5 mg/dL (8.5-10.5); Carbon Dioxide 19 mmol/L (22-29); Chloride 87 mmol/L (98-107); Creatine Phosphokinase 24 U/L (26-192); Globulin 1.7 g/dL (1.3-4.6); Glomerular Filtration Rate 26.4 mL/min (90-130); Glucose 124 mg/dL (65-115); Magnesium 1.9 mg/dL (1.7-2.3); Osmolality Calculated 290 mOsm/kg (285-295); Phosphorus 6.3 mg/dL (2.5-4.5); Potassium 5.2 mmol/L (3.5-5.1); Sodium 127 mmol/L (136-145); Total Bilirubin 0.6 mg/dL (0.15-1.2); Total Protein 4.7 g/dL (6.6-8.7)
[2021-06-06 05:42] LABS: Blood Urea Nitrogen 81 mg/dL (8-23)
[2021-06-06] MEDS: piperacillin-tazobactam 3.375 GM in sodium chloride 0.9% (plus) 50 ML IV ×3 (05:48→21:16)
--- NOTE | 2021-06-06 07:00 | XRR_ITS ---
PROCEDURE INFORMATION: Exam: XR Chest Exam date and time: 06/06/2021 7:00 AM Age: 66 years old Clinical indication: Shortness of breath. TECHNIQUE: Imaging protocol: XR of the chest. Views: 1 view. COMPARISON: CR (CHEST, ) 06/04/2021 9:45 PM FINDINGS: Tubes, catheters and devices: Right upper extremity central venous access device with tip in the low right atrium. A right-sided chest tube is again noted. Lungs: There is persistent near total opacification of the right hemithorax compatible with known consolidation and effusion. There is minimal residual aerated lung on the right. The appearance is centrally unchanged. Interstitial prominence in the left chest likely reflects emphysema. Subsegmental atelectasis at the left base. Pleural spaces: No pleural effusion. No pneumothorax. Heart/Mediastinum: No gross evidence of pneumomediastinum. The cardiac silhouette is not well assessed. Bones/joints: No gross fracture. XR/XR chest 1V portable [id number] IMPRESSION: 1. Right upper extremity central venous access device with tip in the low right atrium. 2. Persistent near total opacification of the right hemithorax compatible with known consolidation and effusion. There is minimal residual aerated lung on the right. The appearance is centrally unchanged. 3. Interstitial prominence in the left chest likely reflects emphysema.
[2021-06-06] MEDS: amiodarone 200 mg Tablet PO ×2 (09:36→17:59)
[2021-06-06] MEDS: fluconazole 100 mg Tablet PO (09:36)
[2021-06-06] MEDS: dextrose 5%-lactated ringers 1,000 ML 50 ML IV (09:36)
[2021-06-06] MEDS: levofloxacin-dextrose 5 % 750 MG/150 ML PREMIX 100 MG IV (09:36)
[2021-06-06] MEDS: aspirin 81 mg EC Tablet PO (09:36)
[2021-06-06] MEDS: apixaban 5 mg Tablet PO ×2 (09:38→21:08)
--- NOTE | 2021-06-06 14:33 | P.PN_ITS ---
Subjective Subjective: Patient was seen with -She was seen multiple times, in the presence of José Miguel herselfNiki over the phone, I also spoke to her healthcare power of compliance attorney Gladys for a #[phone] -This morning patient's mentation has improved, she is alert to person, to place, not to time, she does follow commands, she does get most questions appropriately -I discussed with all parties -Patient has underlying lung malignancy with brain metastasis, at baseline has a poor functional status, has had hospitalizations for multiple infections, all attempts to try to see if she could qualify for immunotherapy -She is admitted to [facility] for acute hypoxic respiratory failure, septic shock secondary to aspiration pneumonia, postobstructive pneumonia, possible UTI -She continues to have significant leukocytosis -Remains on 4 of Levophed -Remains on 4 L nasal cannula -She is now developing hyponatremia, acute renal failure creatinine 1.9, hyperkalemia, with lackluster urine output of 450 cc -We will indicating septic nephropathy, proceeding to acute renal failure -Currently remains a full code -Based upon above's findings, she will likely require continue antibiotic therapy, there is a high likelihood that she might require dialysis given her concerns for fluid overload, acute renal failure -Given her underlying malignancy she does have a poor functional status, and overall her prognosis is poor -Patient's children want her to come home on hospice -Niki Valdez Kim do not want her to suffer, they want her to come home on hospice, they declined continuing medical intervention, declined intubation, they do not want aggressive inventions, they want her to be DNR/DNI -However patient has voiced that she wants all interventions to be done in the past, I had a thorough discussion with patient, nursing staff and patient's family at bedside -Patient does not want to have aggressive interventions, she was to be DNR/DNI -She does not want to have dialysis -It is her wish to go home on hospice -Discussed risks and benefits she voiced any, all questions answered agreed to proceed -As patient's mentation is quite clear now, alert oriented x2, follows commands, but her mentation does fluctuate -I did get an answer from her healthcare power of compliance attorney, Gladys, who agrees with going home on hospice -Likely will attempt to wean off Levophed, and discharge her tomorrow on home hospice Vitals/I&O/Wt Last Vital Signs Temp 97.8 F 06/06/21 08:00 Pulse 70 06/06/21 14:29 Resp 20 H 06/06/21 14:23 BP 97/63 06/06/21 13:00 Pulse Ox 97 06/06/21 14:23 06/05/21 06/06/21 06/06/21 22:59 06:59 14:59 Intake Total 175 / 225 537.655 / 762.655 498.717 / 498.717 Output Total 300 / 300 150 / 450 Balance -125 / -75 387.655 / 312.655 498.717 / 498.717 Weight last 48 hrs Weight 58.967 kg Weight 56.699 kg Weight 56.699 kg Physical Exam Const: COMMON NORMALS: no acute distress GENERAL APPEARANCE: ill appearing and frail appearing NUTRITIONAL APPEARANCE: cachectic ORIENTATION/CONSCIOUSNESS: Yes awake, Yes oriented to person and Yes oriented to place; not oriented to time HENMT: COMMON NORMALS: normocephalic HEAD & SCALP: normocephalic Resp: COMMON NORMALS: normal respiratory effort, No retractions and No use of accessory muscles AUSCULTATION: crackles and diminished lung sounds on the right Cardio: COMMON NORMALS: regular rate, regular rhythm, S1 normal heart sound present and S2 normal heart sound present RATE: regular rate RHYTHM: regular rhythm HEART SOUNDS: S1 normal heart sound present and S2 normal heart sound present GI: COMMON NORMALS: Normal to inspection, nondistended, normoactive bowel sounds present, Soft to palpation and non-tender PALPATION: Yes Soft to palpation Neuro: SENSORIUM/ORIENTATION: Yes oriented to person, Yes oriented to place and No oriented to time Data : 06/06/21 04:49 06/06/21 04:49 Micro: Microbiology 06/06/21 11:10 Bacterial Antigens - Final Urine,Clean Catch 06/06/21 11:10 Legionella Urinary Antigen - Final Urine Catheterized 06/04/21 22:24 Urine Culture - Preliminary Urine,Clean Catch 06/05/21 15:15 Gram Stain - Final Pleural Fluid 06/04/21 22:59 Blood Culture - Preliminary Blood NEGATIVE TO DATE 06/04/21 21:15 Blood Culture - Preliminary Blood NEGATIVE TO DATE A&P Assessment and plan (1) TERESA (acute kidney injury): Status: Acute (2) Sepsis associated hypotension: Status: Acute (3) Acute on chronic respiratory failure with hypoxemia: Status: Acute (4) Paroxysmal A-fib: Status: Acute (5) Acute encephalopathy: Status: Acute Plan Proceeding with hospice Sepsis with hypotension due postobstructive/aspiration pneumonia -Other sources of sepsis include UTI, colitis -Postobstructive pneumonia, secondary malignancy, currently not a candidate for bronchoscopy due to high risk of intubation -PICC line does not look like a source of infection so far Pleurx catheter does not look like a source of infection so far Recent UTI - yeast tx with antifungal plus empirically on rocephin WBC 47.6- infectious with steroids Blood culture x 2 Sputum gram stain and culture Pro-calcitonin elevated Vancomycin and zosyn pharmacy to renal dose De-escalate abx based on clinical course and culture Continue pressor support with levophed via PICC line, de-escalate as per protocol, start midodrine 20 every 6 hours Maintain MAP > 65 Continue steroids Acute encephalopathy -Secondary to sepsis -Pneumonia -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 Acute on chronic hypoxemic respiratory failure due to lung ca plus large malignant pleural effusion possible pneumonia On 3-4L baseline Stable effusion s/p pleurex cath, will drain right pleural effusion, sent out for cytology and testing Abx as above Supplemental o2 as needed Can attempt to drain in am Continue neb Continue steroid Acute renal failure / hyperkalemia -Likely secondary to underlying sepsis Creatinine 1.9, urine output 450 Patient and family declines dialysis Renal dosing [place] in place Abdominal Pain possible colitis Abx as above Chronic obstructive pulmonary disease Management as noted above Duoneb q6hr Supplemental oxygen as needed CTA Chest noted above. Metastatic stage IV lung cancer with brain and bone mets CT head - brain mass with vasogenic edema Decadron increased to 4 mg IV q6hr Will need cautious use given underlying sepsis Paroxysmal Atrial fibrillation Will change to eliquis given renal failure Stable rate. GI ppx Protonix 40 mg IV daily DVT ppx Anticoagulation as noted above Prognosis: Poor, status stable Proceeding with hospice Likely discharge tomorrow Critical care time spent over 55 minutes Attestations Medical Necessity Statement*: Patient requires hospitalization for septic shock, postobstructive pneumonia, acute renal failure, proceeding with hospice Coding Level of Care Code Acute Dairy Cattle Farmer for Barbara Cruz Diagnoses TERESA (acute kidney injury) N17.9 Sepsis associated hypotension A41.9; I95.9 Acute on chronic respiratory failure with hypoxemia J96.21 Paroxysmal A-fib I48.0 Acute encephalopathy G93.40
[2021-06-06] MEDS: midodrine 5 mg TABLET 20 MG PO ×2 (17:59→23:38)
[2021-06-06] MEDS: vancomycin 1,000 MG in sodium chloride 0.9% 250 ML 250 MG IV (21:20)
[2021-06-06] MEDS: norepinephrine 8 MG in dextrose 5 % 500 ML 7.62 MG IV (23:36)
[2021-06-07] VITALS (53 sets, daily range): BP systolic 80–160; BP diastolic 48–95; PULSE 58–90; RESP 7–19; TEMP 36.3; O2SAT 88–98; BMI 22.3
--- NOTE | 2021-06-07 | PC.NURSE ---
Temperature Axillary temperature reading 96.4F on patient. Patient states I am hot, while patient's skin warm to touch. Temporal temperature reading 97.3F. Room temperature increased and warm blanket placed on patient.
[2021-06-07] MEDS: ipratropium-albuterol 3 mL Neb INHALATION ×2 (02:30→08:15)
[2021-06-07] MEDS: pantoprazole 40 mg SDV IVP (03:12)
[2021-06-07] MEDS: dexamethasone 4 mg/mL INJ IVP ×2 (03:12→08:35)
[2021-06-07] MEDS: oxyCODONE 5 mg IR Tab/Cap 10 MG PO ×3 (03:32→14:23)
[2021-06-07 04:49] LABS: Basophils # 0.2 10^3/uL (0.0-0.1); Basophils % 0.6 %; Hematocrit 30.1 % (37.0-47.0); Hemoglobin 9.8 g/dL (11.5-15.3); Lymphocytes # 0.2 10^3/uL (0.8-4.8); Lymphocytes % 0.5 %; Mean Corpuscular HGB Conc 32.6 g/dL (30.0-36.0); Mean Corpuscular Hemoglobin 26.7 pg (28.0-34.0); Mean Platelet Volume 10.6 fL (7.4-10.4); Monocytes # 0.9 10^3/uL (0.2-0.9); Monocytes % 2.9 %; Nucleated Red Blood Cells % 0 %; Platelet Count 322 10^3/cmm (130-400); Red Blood Count 3.67 10^6/uL (4.1-5.3); Red Cell Distribution Width 17.3 % (12.1-15.1)
[2021-06-07 05:04] LABS: Lactate (Lactic Acid level) 1.1 mmol/L (0.5-2.2)
[2021-06-07 05:07] LABS: INR 2.05 (0.8-1.2)
[2021-06-07 05:15] LABS: NT Pro B Type Natriuretic Pept 4771 pg/mL (0-125); Procalcitonin 0.91 ng/mL (0-0.5)
[2021-06-07 05:28] LABS: Alanine Aminotransferase 22 U/L (0-33); Albumin Level 3.4 g/dL (3.5-5.2); Alkaline Phosphatase 118 IU/L (35-105); Anion Gap 21.7 (5-19); Aspartate Amino Transferase 26 U/L (0-32); C Reactive Protein 51.7 mg/L (0.0-4.9); Calcium 8.6 mg/dL (8.5-10.5); Carbon Dioxide 21 mmol/L (22-29); Chloride 90 mmol/L (98-107); Creatine Phosphokinase 73 U/L (26-192); Globulin 1.2 g/dL (1.3-4.6); Glomerular Filtration Rate 26.4 mL/min (90-130); Glucose 134 mg/dL (65-115); Magnesium 1.8 mg/dL (1.7-2.3); Osmolality Calculated 293 mOsm/kg (285-295); Phosphorus 4.8 mg/dL (2.5-4.5); Potassium 4.7 mmol/L (3.5-5.1); Sodium 128 mmol/L (136-145); Total Bilirubin 0.7 mg/dL (0.15-1.2); Total Protein 4.6 g/dL (6.6-8.7)
[2021-06-07] MEDS: dextrose 5%-lactated ringers 1,000 ML 50 ML IV (05:44)
[2021-06-07 05:49] LABS: Blood Urea Nitrogen 82 mg/dL (8-23)
[2021-06-07] MEDS: piperacillin-tazobactam 3.375 GM in sodium chloride 0.9% (plus) 50 ML IV (06:08)
[2021-06-07] MEDS: midodrine 5 mg TABLET 20 MG PO ×2 (06:14→12:30)
[2021-06-07 07:29] LABS: Slide Review Slide Review Perform
[2021-06-07 07:30] LABS: White Blood Count 31.8 10^3/uL (4.0-10.0)
[2021-06-07] MEDS: amiodarone 200 mg Tablet PO (08:35)
[2021-06-07] MEDS: aspirin 81 mg EC Tablet PO (08:35)
[2021-06-07] MEDS: fluconazole 100 mg Tablet PO (08:35)
[2021-06-07] MEDS: apixaban 5 mg Tablet PO (08:36)
--- NOTE | 2021-06-07 09:07 | PC.NURSE ---
pain medication given pt restless and agitated .. uncomfortable .. repositioned
--- NOTE | 2021-06-07 10:54 | P.DS_ITS ---
Discharge Providers Date of Admission: 06/05/21 00:56 Date of Discharge: June 07, 2021 Attending Provider at Admission: Colin Gao Attending Provider at Discharge: Eulalio Amor MD Primary Care Provider: Jayna Schmitt MD Diagnoses at Discharge Discharge Diagnosis (1) TERESA (acute kidney injury): Status: Acute (2) Sepsis associated hypotension: Status: Acute (3) Acute on chronic respiratory failure with hypoxemia: Status: Acute (4) Paroxysmal A-fib: Status: Acute (5) Acute encephalopathy: Status: Acute Reason for Visit Reason for Visit: abd pain hypotensive Hospital Course Hospital Course 66-year-old female with a past medical history significant for paroxysmal atrial fibrillation, pulmonary vein thrombosis, SVC syndrome, chronic anticoagulation with xarelto, chronic hypoxemic respiratory failure on 3-4 L O2 via nasal cannula, 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 Patient was confused with no family at bedside. ER staff report stated patient was brought in to ER after she was noted to have oxygen saturation in 80s, produfctive cough, and systolic blood pressure in low 70s. Patient was admitted to [facility] for sepsis with hypotension secondary postobstructive pneumonia, aspiration pneumonia with UTI, with C. difficile colitis. Patient was managed in ICU, on pressor therapy, her Pleurx catheter was used to drain her right lung. So far her cultures remain u nremarkable, C. difficile was positive. Her encephalopathy improved, with antibiotic therapy. Patient developed acute renal failure, secondary to sepsis, acute respiratory failure secondary to pneumonia. Patient continued to have fatigue, malaise, poor appetite, fluctuating mentation, given however poor functional status, her overall poor prognosis, and the seriousness of her present illness, discussion was made about her goals of care after discussion with patient and family decision was made to pursue hospice. Patient will be discharged home on hospice. Physical Exam Const: COMMON NORMALS: no acute distress GENERAL APPEARANCE: ill appearing and frail appearing NUTRITIONAL APPEARANCE: cachectic ORIENTATION/CONSCIOUSNESS: Yes awake, Yes oriented to person and Yes oriented to place; not oriented to time HENMT: COMMON NORMALS: normocephalic HEAD & SCALP: normocephalic Resp: COMMON NORMALS: normal respiratory effort, No retractions and No use of accessory muscles AUSCULTATION: crackles and diminished lung sounds on the right Cardio: COMMON NORMALS: regular rate, regular rhythm, S1 normal heart sound present and S2 normal heart sound present RATE: regular rate RHYTHM: regular rhythm HEART SOUNDS: S1 normal heart sound present and S2 normal heart sound present GI: COMMON NORMALS: Normal to inspection, nondistended, normoactive bowel sounds present, Soft to palpation and non-tender PALPATION: Yes Soft to palpation Neuro: SENSORIUM/ORIENTATION: Yes oriented to person, Yes oriented to place and No oriented to time Discharge Data Studies Completed and Pending Completed Studies During Hospitalization Category Date Time Status CT head wo con* [id number] Urgent Cat Scan 06/04/21 21:[address] abdomen pelvis [CT angio chest w abd pel w Cat Scan 06/04/21 21:13 Completed con] Urgent XR chest 1V portable [id number] Routine Exams 06/06/21 07:00 Completed XR chest 1V portable [id number] Urgent Exams 06/04/21 21:13 Completed Pending at discharge Category Date Time Status Blood Culture Stat Lab 06/04/21 22:59 Results Body Fluid Culture & GS Routine Lab 06/05/21 15:15 Results C Reactive Protein AM LABS Lab 06/08/21 04:00 Ordered Clostridioides Difficile PCR Routine Lab 06/06/21 22:30 Results Complete Blood Count w/Auto AM LABS Lab 06/08/21 04:00 Ordered Comprehensive Metabolic Panel AM LABS Lab 06/08/21 04:00 Ordered Creatine Phosphokinase AM LABS Lab 06/08/21 04:00 Ordered Enteric Bacterial Panel by PCR Routine Lab 06/06/21 22:30 Results Enteric Parasite Panel by PCR Routine Lab 06/06/21 22:30 Results Immunochemical Fecal OCB Routine Lab 06/06/21 22:30 Results Lactate (Lactic Acid level) AM LABS Lab 06/08/21 04:00 Ordered Lactoferrin Routine Lab 06/06/21 22:30 Results Magnesium AM LABS Lab 06/08/21 04:00 Ordered Mycobacteria, Culture w/Fluor Routine Lab 06/05/21 15:15 Received NT Pro B Type Natriuretic Pept QAM Lab 06/08/21 06:00 Ordered Phosphorus AM LABS Lab 06/08/21 04:00 Ordered Procalcitonin AM LABS Lab 06/08/21 04:00 Ordered Prothrombin Time INR AM LABS Lab 06/08/21 04:00 Ordered Sputum Culture and Gram Stain Routine Lab 06/05/21 02:47 Uncollected Urine Culture Stat Lab 06/04/21 22:24 Results Cytology [PTH] Routine Pth 06/05/21 11:34 Received Radiology Impressions Chest/Abdomen/Pelvis CT 06/04/21 21:13 IMPRESSION: 1. No evidence for pulmonary embolus. 2. Stable malignant mass in the suprahilar right upper lobe with extension to the hilum and probable extension into the central right middle and lower lobes. 3. Stable narrowing of multiple right bronchi. 4. Stable atelectasis and collapse of the right upper and middle lobes. 5. Consolidation without volume loss in the right lower lobe likely represents a combination of pneumonia and possible neoplasm. 6. Stable large right pleural effusion with pleural thickening. A malignant effusion is not excluded. IMPRESSION: 1. Mild wall thickening and mucosal enhancement in the colon and rectum could represent infectious or inflammatory colitis. 2. Stable lytic lesion in the left iliac bone, possibly metastatic disease. 3. Mild ascites. 4. Diverticulosis of the colon. 5. Body wall edema. 6. Stable calcified lesion in the left kidney, most likely a complex cyst. Head CT 06/04/21 21:13 IMPRESSION: 1. Stable vasogenic edema in the left temporal lobe, consistent with patient's previous identified metastatic lesion. No new lesion identified. 2. Stable lytic lesions in the calvarium. Main considerations include metastatic disease and multiple myeloma. Chest X-Ray 06/06/21 07:00 IMPRESSION: 1. Right upper extremity central venous access device with tip in the low right atrium. 2. Persistent near total opacification of the right hemithorax compatible with known consolidation and effusion. There is minimal residual aerated lung on the right. The appearance is centrally unchanged. 3. Interstitial prominence in the left chest likely reflects emphysema. Laboratory Results WBC 31.8 10^3/uL (4.0-10.0) H* 06/07/21 03:50 RBC 3.67 10^6/uL (4.1-5.3) L 06/07/21 03:50 Hgb 9.8 g/dL (11.5-15.3) L 06/07/21 03:50 Hct 30.1 % (37.0-47.0) L 06/07/21 03:50 MCV 82.0 fl (81-99) 06/07/21 03:50 MCH 26.7 pg (28.0-34.0) L 06/07/21 03:50 MCHC 32.6 g/dL (30.0-36.0) 06/07/21 03:50 RDW 17.3 % (12.1-15.1) H 06/07/21 03:50 Plt Count 322 10^3/cmm (130-400) 06/07/21 03:50 MPV 10.6 fL (7.4-10.4) H 06/07/21 03:50 Neut % (Auto) 96.0 % 06/07/21 03:50 Lymph % (Auto) 0.5 % 06/07/21 03:50 [place] % (Auto) 2.9 % 06/07/21 03:50 Eos % (Auto) 0.0 % 06/07/21 03:50 Baso % (Auto) 0.6 % 06/07/21 03:50 Neut # (Auto) 28.40 10^3/uL (1.8-7.7) H 06/07/21 03:50 Lymph # (Auto) 0.2 10^3/uL (0.8-4.8) L 06/07/21 03:50 [place] # (Auto) 0.9 10^3/uL (0.2-0.9) 06/07/21 03:50 Eos # (Auto) 0.0 10^3/uL (0.0-0.8) 06/07/21 03:50 Baso # (Auto) 0.2 10^3/uL (0.0-0.1) H 06/07/21 03:50 Nucleated RBC % (auto) 0 % 06/07/21 03:50 Total Counted 100 (0-100) 06/04/21 21:15 Atypical Lymphs % 0.0 % (0-5) 06/04/21 21:15 Absolute Neutrophils 49.9 10^3/cmm (1.4-6.5) H 06/04/21 21:15 Segmented Neutrophils 76 % 06/04/21 21:15 Abs Segm Neuts (Man) 39.1 10/cmm (1.6-7.1) H 06/04/21 21:15 Band Neutrophils 21.0 % 06/04/21 21:15 Abs Band Neuts (Man) 10.8 10^3/cmm (0.0-1.2) H 06/04/21 21:15 Absolute Lymphocytes 0.0 10^3/cmm (1.2-3.4) L 06/04/21 21:15 Lymphocytes (Manual) 0 % 06/04/21 21:15 Monocytes (Manual) 1.0 % 06/04/21 21: Absolute Monocytes 0.5 10^3/cmm (0.1-0.6) 06/04/21 21:15 Eosinophils (Manual) 0 % 06/04/21 21: Absolute Eosinophils 0.0 10^3/cmm (0.0-0.7) 06/04/21 21:15 Basophils (Manual) 0.0 % 06/04/21: Absolute Basophils 0.0 10^3/cmm (0.0-0.2) 06/04/21 21:15 Metamyelocytes 2.0 % 06/04/21 21:15 Nucleated RBCs # 0.0 /100WBC 06/07/21 03:50 Platelet Estimate Normal (Normal) 06/04/21 21: PT 23.50 SECONDS (12.1-14.9) H 06/07/21 03:50 INR 2.05 (0.8-1.2) H 06/07/21 03:50 Specimen Type Arterial 06/04/21 21: Sample Site Radial, left 06/04/21 21:28 ABG pH 7.45 (7.35-7.45) 06/04/21 21: ABG pCO2 35.5 mmHg (35-45) 06/04/21 21: ABG pO2 106.0 mmHg (80.0-100.0) H 06/04/21 21:28 ABG HCO3 24.5 mmol/L (22-26) 06/04/21 21: ABG Base Excess 0.8 mmol/L (-2.0-2.0) 06/04/21 21: Morris Test Pos 06/04/21 21:28 Hematocrit 36.3 % (37-47) L 06/04/21 21:28 O2 Delivery Device Nrb 06/04/21 21:28 O2 Liters/Min 15.0 % 06/04/21 21:28 Certified Juvenile Probation Officer ID Buttr 06/04/21 21:28 Sodium 128 mmol/L (136-145) L 06/07/21 03:50 Potassium 4.7 mmol/L (3.5-5.1) 06/07/21 03:50 Chloride 90 mmol/L (98-107) L 06/07/21 03:50 Carbon Dioxide 21 mmol/L (22-29) L 06/07/21 03:50 Anion Gap 21.7 (5-19) H 06/07/21 03:50 BUN 82 mg/dL (8-23) H* 06/07/21 03:50 Creatinine 1.9 mg/dL (0.5-0.9) H 06/07/21 03:50 GFR Calculation 26.4 mL/min (90-130) L 06/07/21 03:50 Glucose 134 mg/dL (65-115) H 06/07/21 03:50 POC Glucose 117 mg/dL (70-110) H 06/05/21 18:01 Calculated Osmolality 293 mOsm/kg (285-295) 06/07/21 03:50 Lactic Acid 0.7 mmol/L (0.5-2.2) 06/05/21 01:18 Lactate 1.1 mmol/L (0.5-2.2) 06/07/21 03:50 Calcium 8.6 mg/dL (8.5-10.5) 06/07/21 03:50 Phosphorus 4.8 mg/dL (2.5-4.5) H 06/07/21 03:50 Magnesium 1.8 mg/dL (1.7-2.3) 06/07/21 03:50 Total Bilirubin 0.7 mg/dL (0.15-1.2) 06/07/21 03:50 AST 26 U/L (0-32) 06/07/21 03:50 ALT 22 U/L (0-33) 06/07/21 03:50 Alkaline Phosphatase 118 IU/L (35-105) H 06/07/21 03:50 Creatine Kinase 73 U/L (26-192) 06/07/21 03:50 Troponin T Baseline 89 ng/L (0-10) H 06/04/21 21:15 Troponin T 120 Minute 59.71 ng/L (0-10) H 06/04/21 22:59 Delta Troponin T -29.29 ABS# (0-10) L 06/04/21 22:59 Troponin T Hi Sens 6Hr 65.69 ng/L (0-10) H 06/05/21 03:30 Troponin T Hi Sens 6Hr Delta -23.31 ng/L (0-12) L 06/05/21 03:30 C-Reactive Protein 51.7 mg/L (0.0-4.9) H 06/07/21 03:50 NT-Pro-B Natriuret Pep 4771 pg/mL (0-125) H 06/07/21 03:50 Total Protein 4.6 g/dL (6.6-8.7) L 06/07/21 03:50 Albumin 3.4 g/dL (3.5-5.2) L 06/07/21 03:50 Globulin 1.2 g/dL (1.3-4.6) L 06/07/21 03:50 Procalcitonin 0.91 ng/mL (0-0.5) H 06/07/21 03:50 TSH 4.10 uIU/mL (0.27-4.20) 06/04/21 21:15 Urine Color Dark yellow (Yellow) 06/04/21 22:24 Urine Appearance Hazy (CLEAR) A 06/04/21 22:24 Urine pH 5 (5-7) 06/04/21 22:24 Ur Specific [place] 1.020 (1.005-1.030) 06/04/21 22:24 Urine Protein Trace (Negative) 06/04/21 22:24 Urine Glucose (UA) Trace (Normal) H 06/04/21 22:24 Urine Ketones Negative (Negative) 06/04/21 22:24 Urine Blood Neg (Negative) 06/04/21 22:24 Urine Nitrate Negative (Negative) 06/04/21 22:24 Urine Bilirubin 2+ (Negative) H 06/04/21 22:24 Urine Urobilinogen 1 mg/dL (Negative) H 06/04/21 22:24 Ur Leukocyte Esterase 1+ (Negative) H 06/04/21 22:24 Urine RBC 5-10 /hpf (0-2) H 06/04/21 22:24 Urine WBC 40-55 /hpf (0-5) H 06/04/21 22:24 Ur Squamous Epith Cells 0-4 /hpf (0-5) H 06/04/21 22:24 Ur Renal Epithelial Cell 0-4 /hpf 06/04/21 22:24 Amorphous Sediment Not Reportable 06/04/21 22:24 Urine Bacteria Trace /hpf (NONE) 06/04/21 22:24 Fluid Color Yellow 06/05/21 15:15 Fluid Appearance Cloudy 06/05/21 15:15 Fluid WBC 36 /uL 06/05/21 15:15 Fluid RBC 3.000 10^3/uL 06/05/21 15:15 Fluid Hematocrit 0.0 % 06/05/21 15:15 Fld Polynuclear WBCs # 0.010 06/05/21 15:15 Fld Polynuclear WBCs % 27.800 % 06/05/21 15:15 Fl Mononucl WBCs #(Auto) 0.026 06/05/21 15:15 Fl Mononuclear % Auto 72.200 % 06/05/21 15:15 Fluid Albumin 1.0 g/dL 06/05/21 15:15 Fluid Creatinine 1.68 (0.5-0.9) H 06/05/21 15:15 Pleural pH 9.00 (6.5-7.5) H 06/05/21 15:15 Pleural Total Protein 1.5 g/dL 06/05/21 15:15 Pleural LDH 262 U/L 06/05/21 15:15 Pleural Glucose 19.0 mg/dL 06/05/21 15:15 Pleural Amylase 383.0 U/L 06/05/21 15:15 Pleural Triglycerides 15 mg/dL 06/05/21 15:15 Vitals Last Vital Signs Temp 97.3 F L 06/07/21 08:00 Pulse 69 06/07/21 08:17 Resp 16 06/07/21 08:15 BP 133/75 06/07/21 08:00 Pulse Ox 94 06/07/21 08:15 Discharge Plan Discharge Patient Disposition: Hospice - Home Condition: Serious Prescriptions: New levofloxacin 750 mg tablet 750 mg PO DAILY 7 Days Qty: 7 0RF vancomycin 250 mg capsule 250 mg PO Q6H 10 Days Qty: 40 0RF Eliquis 5 mg Tablet 5 mg PO BID@0900,2100 30 Days Qty: 60 0RF midodrine 10 mg tablet 20 mg PO Q6H 30 Days Qty: 240 0RF Continued ipratropium-albuterol 0.5 mg-3 mg(2.5 mg base)/3 mL solution for nebulization 3 ml INHALATION TID PRN (Reason: Shortness Of Breath) 30 Days Qty: 360 4RF clonazepam 0.5 mg tablet 0.5 mg PO TID PRN (Reason: Anxiety) Qty: 90 0RF Label Comments: patient mentioned starting xanax? need to confirm next visit 03-16-21 trazodone 50 mg tablet 50 mg PO BEDTIME PRN (Reason: Sleep) 0RF oxycodone 10 mg tablet 10 mg PO Q4H PRN (Reason: Pain) 0RF aspirin 81 mg Tablet,Delayed Release (Dr/Ec) 81 mg PO DAILY 30 Days Qty: 30 0RF pantoprazole 40 mg Tablet,Delayed Release (Dr/Ec) 40 mg PO DAILY 30 Days Qty: 30 0RF ferrous gluconate 324 mg (37.5 mg iron) Tablet 324 mg PO BIDWM 30 Days Qty: 60 0RF albuterol sulfate [ProAir HFA] 90 mcg/actuation HFA aerosol inhaler 2 puff INHALATION QID PRN (Reason: Shortness Of Breath) 0RF Label Comments: patient mentioned starting xanax? need to confirm next visit 03-16-21 amiodarone 200 mg tablet 200 mg PO BID 0RF Label Comments: patient mentioned starting xanax? need to confirm next visit 03-16-21 dexamethasone 4 mg tablet 2 mg PO BID 0RF fluconazole 100 mg tablet 100 mg PO DAILY 10 Days Qty: 10 0RF Discontinued potassium chloride [Klor-Con M20] 20 mEq Tablet,Er Particles/Crystals 20 meq PO DAILY 30 Days Qty: 30 0RF lisinopril 10 mg tablet 10 mg PO DAILY 0RF Xarelto 15 mg tablet 15 mg PO DAILY 0RF Label Comments: patient mentioned starting xanax? need to confirm next visit 03-16-21 amoxicillin-pot clavulanate 400-57 mg/5 mL suspension for reconstitution 11 ml PO BID 0RF Rx Instructions: x 10 days furosemide [Lasix] 20 mg tablet 20 mg PO DAILY Qty: 60 3RF Discharge Orders: Discharge Order (Routine); Ordered 06/07/21 Ordered By: Eulalio Amor Referrals: Jayna Schmitt MD [Primary Care Provider] - Discharge Diet: Regular Discharge Activity: Resume usual activity Activity Restrictions/Additional Instructions: -Discharge on home hospice Discharge Attestations Time Spent in Discharge Care*: less than 30 min Status at Discharge: Cognitive status at discharge: cognitively intact , Behavioral status at discharge: cooperative , Quality Metrics Clinical Quality Measures [ No reported AMI, CVA or VTE this stay] Coding Level of Care Code Acute Chg FW DC note Diagnoses TERESA (acute kidney injury) N17.9 Sepsis associated hypotension A41.9; I95.9 Acute on chronic respiratory failure with hypoxemia J96.21 Paroxysmal A-fib I48.0 Acute encephalopathy G93.40
== END 2021-06-07 14:33 | disposition hospice, home (50) | DRG 871 ==
LOC: ER 06-05 00:56 → ICU 06-05 01:10
PROVIDERS: Admitting Provider Hospitalist; Emergency Provider Emergency Medicine; PCP Internal Medicine; Visit Provider Family Medicine
DX: A41.9 Sepsis, unspecified organism (principal); J69.0 Pneumonitis due to inhalation of food and vomit; J96.21 Acute and chronic respiratory failure with hypoxia; R65.21 Severe sepsis with septic shock; N39.0 Urinary tract infection, site not specified; N17.9 Acute kidney failure, unspecified; C34.90 Malignant neoplasm of unspecified part of unspecified bronchus or lung; C79.31 Secondary malignant neoplasm of brain; C79.51 Secondary malignant neoplasm of bone; G93.40 Encephalopathy, unspecified; E87.1 Hypo-osmolality and hyponatremia; I87.1 Compression of vein; I95.9 Hypotension, unspecified; B96.89 Other specified bacterial agents as the cause of diseases classified elsewhere; J44.9 Chronic obstructive pulmonary disease, unspecified; I48.0 Paroxysmal atrial fibrillation; E87.5 Hyperkalemia; K52.9 Noninfective gastroenteritis and colitis, unspecified; Z79.891 Long term (current) use of opiate analgesic; Z79.82 Long term (current) use of aspirin; Z79.01 Long term (current) use of anticoagulants; Z92.3 Personal history of irradiation; Z92.21 Personal history of antineoplastic chemotherapy; Z99.81 Dependence on supplemental oxygen; Z86.718 Personal history of other venous thrombosis and embolism; Z95.828 Presence of other vascular implants and grafts; Z66 Do not resuscitate; Z87.891 Personal history of nicotine dependence; Z97.8 Presence of other specified devices
CPT/HCPCS: 36416; 36592; 36600; 70450; 71045; 71275; 74177; 80053; 80500; 81001; 82042; 82150; 82274; 82550; 82570; 82803; 82945; 82962; 83605; 83615; 83630; 83735; 83880; 83986; 84100; 84145; 84157; 84443; 84478; 84484; 85007; 85014; 85025; 85610; 86140; 86403; 87015; 87040; 87070; 87075; 87086; 87116; 87205; 87206; 87449; 87493; 87506; 87801; 88305; 89050; 93005; 94640; 94664; 96365; 96366; 96367; 99285; C9113; J1100; J1956; J2543; J3370; J7050; P9047; Q9967